=== PATIENT | male | born 1940 | race Caucasian/White ===

== ENCOUNTER → 2017-07-24 07:34 | Outpatient (CLI) | payer MEDICARE, OTHER, SELFPAY ==
[2017-07-24 08:04] LABS: Hematocrit 40.8 % (40-54); Mean Corp Hgb Conc 34.3 g/gl (32-36); Mean Corpuscular Volume 84.5 fL (80-94); Mean Platelet Vol. 9.2 fl (6.2-12.0); Platelet Count 175 K/mm3 (150-450); RBC Distribution Width CV 13.1 % (11.6-14.6); RBC Distribution Width SD 39.8 fl (35.1-43.9); Red Blood Count 4.83 M/mm3 (4.6-6.2); White Blood Count 7.4 K/mm3 (4.4-11.0)
[2017-07-24 08:07] LABS: Scan Indicated on CBC? Y/N NO
--- NOTE | 2017-07-24 08:21 | US_ITS ---
STUDY: ABDOMINAL ULTRASOUND - RIGHT UPPER QUADRANT REASON FOR VISIT: Male, 77 years old. The patient has a history of cirrhosis. TECHNIQUE: Ultrasound evaluation of the right upper quadrant was performed with real-time and static ferguson-scale imaging. TECHNICAL QUALITY: Adequate. COMPARISON: None. FINDINGS: Liver: The liver measures 16.3 cm. There is increased echogenicity consistent with fatty infiltration. The bile ducts are within normal limits. There is hepatic color flow. The direction of portal flow is hepatopetal. There is no demonstrated mass lesion. Gallbladder: Normal distended gallbladder. The gallbladder wall measures 3.6 mm. There is a negative sonographic Chaudhry's sign. There is no pericholecystic fluid. There are no gallstones. A small amount of sludge is seen within the gallbladder lumen. Common Bile Duct (C.B.D.): The common bile duct measures 4 mm. Pancreas: There is nonvisualization of the pancreas. Right Kidney: Normal size of the right kidney. The right kidney measures 12.0 cm x 5.2 cm x 5.0 cm. Normal renal cortex. The right cortex measures 1.7 cm. A 1 cm x 0.8 cm cyst is seen in the upper pole. I also suspect tiny nonobstructive intrarenal calculi. There is no right hydronephrosis. US/Abdomen Limited IMPRESSION: Fatty infiltration of the liver. Small cyst in the upper pole of the right kidney with tiny nonobstructing intrarenal calculi. Electronically Signed: Francisco Sims MD at 13:52 EDT Tel [phone], Service support ,
[2017-07-24 08:28] LABS: International Normalized Ratio 1.1
[2017-07-24 08:33] LABS: AST(SGOT) 26 U/L (15-37); Alanine Aminotransfer ALT/SGPT 42 U/L (16-61); Albumin, Serum 3.6 g/dL (3.2-5.0); Alkaline Phosphatase 66 U/L (45-117); Anion Gap 7 (5-15); BUN 19 mg/dL (7-18); BUN/Creat Ratio 16.5 RATIO (10-20); Calcium,Total 8.5 mg/dL (8.5-10.1); Chloride 104 mmol/L (98-107); Creatinine, Serum 1.15 mg/dL (0.70-1.30); EST Glomerular Filtration Rate 66 mL/min (>60); Est Glom Filt Rate - Afr Amer 80 mL/min (>60); Globulin 3.5 g/dL (2.2-4.2); Glucose 175 mg/dL (74-106); Potassium 4.8 mmol/L (3.5-5.1); Protein, Total 7.1 g/dL (6.4-8.2); Sodium Level 139 mmol/L (136-145)
[2017-07-25 12:09] LABS: AFP, Tumor Marker 2.6 ng/mL (0.0-8.3)
== END ==
PROVIDERS: Family Provider Family Medicine; PCP Family Medicine
DX: K74.69 Other cirrhosis of liver (principal); K76.0 Fatty (change of) liver, not elsewhere classified
CPT/HCPCS: 36415; 76705; 80053; 82105; 85027; 85610

== ENCOUNTER 2018-01-10 13:36 | Emergency (ER) | payer MEDICARE, OTHER, SELFPAY ==
[2018-01-10 13:38] VITALS: BP 110/72; PULSE 100; RESP 16; TEMP 36.2; O2SAT 95; BMI 28.8
--- NOTE | 2018-01-10 14:59 | ED.VISSUMM ---
- ER Visit Summary Date of Service: 01/10/18 Chief Complaint: Laceration History of Present Illness: The patient is a 77 M with a right middle fingertip laceration. This happened just prior to arrival on a fan in his attic. He also has an abrasion to his right ring finger. He is unsure of his tetanus status. No other injury or complaints. Physical Examination: Vital signs unremarkable. There is a 1 cm partial-thickness laceration to his right fingertip. Bleeding is controlled with pressure. Tiny superficial abrasion to his right ring fingertip. Test Results: None indicated Emergency Department Course and Treatment: Wound was cleaned, soaked. Closed with tissue adhesive. Tetanus updated. Follow-up with primary care for recheck. Treatment Plan: As above Disposition: Discharged Impression: 1. Right middle fingertip 1 cm laceration This note was generated with [employer] dictation software. It may contain incorrect words, spelling, and punctuation that were not noted in review of the chart prior to signing ED Disposition - Plan for ED Patient: Disposition: Home or Assisted Living Chief Complaint: Laceration Instructions: ED Laceration Ext Skin Glue Referrals: Yvan Cardona MD [Primary Care Provider] -
[2018-01-10] MEDS: Diphth,Pertuss(Acell),Tet Vac 0.5 ML Vial IM (15:03)
--- NOTE | 2018-01-10 15:05 | ED.DCSUM_ITS ---
- ER Visit Summary Date of Service: 01/10/18 Chief Complaint: Laceration History of Present Illness: The patient is a 77 M with a right middle fingertip laceration. This happened just prior to arrival on a fan in his attic. He also has an abrasion to his right ring finger. He is unsure of his tetanus status. No other injury or complaints. Physical Examination: Vital signs unremarkable. There is a 1 cm partial- thickness laceration to his right fingertip. Bleeding is controlled with pressure. Tiny superficial abrasion to his right ring fingertip. Test Results: None indicated Emergency Department Course and Treatment: Wound was cleaned, soaked. Closed with tissue adhesive. Tetanus updated. Follow-up with primary care for recheck. Treatment Plan: As above Disposition: Discharged Impression: 1. Right middle fingertip 1 cm laceration This note was generated with [employer] dictation software. It may contain incorrect words, spelling, and punctuation that were not noted in review of the chart prior to signing ED Disposition - Plan for ED Patient: Disposition: Home or Assisted Living Chief Complaint: Laceration Instructions: ED Laceration Ext Skin Glue Referrals: Yvan Cardona MD [Primary Care Provider] -
--- NOTE | 2018-01-10 15:05 | ED.DEP ---
ED Disposition - Plan for ED Patient: Chief Complaint: Laceration Instructions: ED Laceration Ext Skin Glue Referrals: Yvan Cardona MD [Primary Care Provider] -
== END 2018-01-10 15:51 | disposition home or self-care (01) ==
LOC: ED 15:16
PROVIDERS: Emergency Provider Emergency Medicine; Family Provider Family Medicine; PCP Family Medicine
DX: S61.212A Laceration without foreign body of right middle finger without damage to nail, initial encounter (principal); X58.XXXA Exposure to other specified factors, initial encounter; Y93.9 Activity, unspecified; Y92.008 Other place in unspecified non-institutional (private) residence as the place of occurrence of the external cause; E11.9 Type 2 diabetes mellitus without complications; Z79.84 Long term (current) use of oral hypoglycemic drugs; Z79.899 Other long term (current) drug therapy
CPT/HCPCS: 90471; 90715; 99282

== ENCOUNTER 2024-08-19 08:57 | Inpatient (IN) | payer MEDICARE, OTHER, SELFPAY ==
[2024-08-19] VITALS (20 sets, daily range): BP systolic 123–174; BP diastolic 56–89; PULSE 99–130; RESP 14–32; TEMP 36.8–39.1; O2SAT 91–95; BMI 28.8; BMI 26.6
--- NOTE | 2024-08-19 09:03 | EKG12_ITS ---
Test Reason : N/V Blood Pressure : */* mmHG Vent. Rate : 127 BPM Atrial Rate : 127 BPM P-R Int : 184 ms QRS Dur : 126 ms QT Int : 340 ms P-R-T Axes : * 166 25 degrees QTcB Int : 494 ms Sinus tachycardia Right bundle branch block Abnormal ECG Confirmed by THOMAS MATHIAS, MARILYN ([id number]), senior technical editor PAOLA ÁLVAREZ ([id number]) on 08/20/2024 8:36:27 AM Referred By: Confirmed By: MARILYN GUZMAN MD
--- NOTE | 2024-08-19 09:03 | RAD_ITS ---
PROCEDURE: CHEST 1 VIEW (PORTABLE) 08/19/2024 REASON FOR EXAM: WEAKNESS, HYPOXIA TECHNIQUE: Frontal view of the chest. COMPARISON: No relevant prior. FINDINGS: Lungs: Prominent lung markings at the left lung base. Pleura: No pleural effusions, thickening, or pneumothorax. Elevation of the right hemidiaphragm. Heart: Normal in size and configuration. Mediastinum/[place]: Unremarkable. Great vessels: Aorta is atherosclerotic and tortuous. Bones/soft tissues: Multilevel spondylosis. Cardiac monitoring leads overlie the chest wall. RAD/Chest 1 View (Portable) IMPRESSION: Prominent lung markings at the left lung base. Can not exclude a developing in filtrate. Elevation of the right hemidiaphragm. Reading Location: [place] [id number]
--- NOTE | 2024-08-19 09:04 | EX.ED.DYSGE1 ---
HPI History of Present Illness Chief Complaint: Weakness Narrative Narrative: 84-year-old male past medical history of diabetes presents via EMS with generalized weakness, nausea and vomiting. It was reported that he had a fever/elevated temperature at home. He felt sick to his stomach, and vomited 3-4 times at home. He was unable to sit up completely. He relates history that he has been feeling tired and fatigued as well. He denies any chest pain or shortness of breath, no cough, no problems with urination. He is not having diarrhea. He denies any abdominal pain. It was reported by EMS that he was hypoxic as well. He had a pulse ox in the 80s upon their arrival. [facility] Medical History (Updated 08/19/24 @ 10:51 by Denilson Foley MD) HTN (hypertension) Lung cancer Diabetes Home Medications ?Medication ?Instructions ?Recorded ?Last Taken ?Type glimepiride 2 mg tablet 2 mg PO BID 07/22/13 08/18/24 History aspirin 81 mg tablet,delayed 81 mg PO DAILY 08/19/24 08/18/24 History release (Adult Aspirin Regimen) cholecalciferol (vitamin D3) 50 50 mcg PO DAILY 08/19/24 08/18/24 History mcg (2,000 unit) capsule levothyroxine 175 mcg tablet 175 mcg PO DAILY 08/19/24 08/18/24 History (Synthroid) losartan 100 mg tablet 100 mg PO DAILY 08/19/24 08/18/24 History omeprazole 20 mg capsule,delayed 20 mg PO DAILY 08/19/24 08/18/24 History release pioglitazone 30 mg tablet 30 mg PO DAILY 08/19/24 08/18/24 History pravastatin 40 mg tablet 40 mg PO DAILY 08/19/24 08/18/24 History sitagliptin phos 100 mg-metformin 1 tab PO DAILY 08/19/24 08/18/24 History ER 1,000 mg tablet,extend rel 24h mp (Janumet XR) tamsulosin 0.4 mg capsule 0.4 mg PO BID 08/19/24 08/18/24 History Allergy/AdvReac Type Severity Reaction Status Date / Time Penicillins Allergy Swelling Verified 08/19/24 08:58 Surgical History (Updated 08/19/24 @ 09:18 by Luis Armando King) S/P lobectomy of lung Social History Smoking Status: Never smoker ROS ROS ED ROS Narrative Afebrile. Vital signs noted. Nontoxic-appearing. Intermittent drowsiness noted on examination. Cardiovascular examination reveals mild tachycardia. Lungs are clear to auscultation bilaterally with diminished sounds at the bilateral bases. Abdomen soft, nontender, no guarding or rebound. Positive bowel sounds. Neurological examination shows him to be awake and interactive. Stated year was 2023. Intermittently fatigued. No pedal edema bilaterally. Moves all extremities. EXAM Physical Exam Const Vital Signs: 08/19/24 08:58 08/19/24 09:08 08/19/24 09:08 Temperature 98.2 F 98.6 F Temperature Source Oral Oral Pulse Rate 130 H 130 H Respiratory Rate 18 28 H Respiratory Effort Respiratory Pattern Blood Pressure 174/86 H 174/86 H Blood Pressure Mean 115 115 Pulse Ox 91 92 Oxygen Delivery Method Room Air Room Air Nasal Cannula Oxygen Flow Rate (L/min) 2 08/19/24 09:17 08/19/24 10:05 08/19/24 10:28 Temperature 102.1 F H 102.3 F H Temperature Source Core Core Pulse Rate 116 H 115 H Respiratory Rate 28 H 30 H Respiratory Effort Normal Respiratory Pattern Normal Blood Pressure 145/64 H 123/70 H Blood Pressure Mean 91 87 Pulse Ox 93 94 Oxygen Delivery Method Nasal Cannula Nasal Cannula Oxygen Flow Rate (L/min) 2 2 Sepsis Attestation Sepsis Alert: Yes Sepsis Attestation: Agree w/Sepsis Date exam was performed: 08/19/24 Time exam was performed: 10:05 Possible Source of Sepsis: Pulmonary Sepsis Organ Dysfunction Criteria Present: SBP decrease of more than 40 mmHg and New/Unexplained change in mental status Fluid Resuscitation Fluid resuscitation indicated?: Yes Fluid Resuscitation ordered: 30 ml/kg fluid bolus ordered Amount of fluid ordered: 2,750 MDM MDM MDM Narrative Medical decision making narrative: Given patient's generalized weakness, differential diagnosis includes dehydration versus intravascular volume depletion. Given his tachycardia, concern would also be for new onset atrial fibrillation versus sinus tachycardia. With his reported hypoxia, he may have pneumonia versus pneumothorax. While he is not hypotensive, sepsis workup was pursued given his reported fever but he is currently afebrile. In discussing with the patient's , she states that yesterday patient was complaining of urinary frequency. She called EMS this morning because at 4 AM he started having nausea and vomiting and was in the bathroom for a while. He had an episode of diarrhea as well and she had to call her son to try and get him to the bathroom. He was so weak he could barely stand and ambulate, and he seemed more confused. She states that he takes Januvia and oral medication for his diabetes. Per RN, [id number] glucose is elevated at 375. I added a beta hydroxybutyrate, and bladder scan was also performed. He was having urinary retention so Suárez catheter was inserted. On my individual interpretation of his 1 view chest x-ray, there is perihilar fullness and questionable infiltrate in the left lower lobe. He has chronically elevated right hemidiaphragm when compared to previous chest x-ray. I reviewed the radiology report which comments more on the developing left lower lobe infiltrate. Given his hypoxia, I feel he may have more of a pneumonia. EKG was obtained and interpreted by myself independently as sinus tachycardia at 127 bpm with a right bundle branch block, no acute ST changes/STEMI. When compared to previous EKG, he has had a right bundle branch block even in 2013. I reviewed his laboratory work and he has elevated white count of 14.5 with hemoglobin 15.9, hematocrit 46.5, platelet count 220. INR normal at 1.1 with a PTT 25.3. CMP is remarkable for a chloride of 97 with CO2 low at 15.5 and anion gap elevated 23, BUN of 22 and creatinine 1.18. LFTs show AST slightly elevated at 41 which I think is nonspecific, normal ALT and normal alk phos. Lactic acid is elevated at 6.3. Glucose is elevated at 435. I obtained acetone level and it is also elevated at 1.6. Patient was started on IV fluids. I deferred insulin to the hospitalist. Given his lactic acidosis, and now with fever of 102.3, tachycardia, sepsis alert was instituted. As he may have more of an aspiration pneumonia, given his penicillin allergy of swelling he was started on levofloxacin and Flagyl intravenously. I discussed the patient with Dr. Yadira Pruett for admission to the ICU. Critical care time 31 minutes. Disposition is admit to the ICU in guarded condition. History & Record Review Discussion w/independent historian: Patient and Family Lab Data Attestation: I reviewed the patient's lab results. Labs: Laboratory Results - last 24 hr 08/19/24 08/19/24 08/19/24 08:42 09:16 09:35 WBC 14.5 H RBC 5.55 Hgb 15.9 Hct 46.5 MCV 83.8 MCH 28.6 MCHC 34.2 RDW Std Deviation 38.4 RDW Coeff of [place] 12.6 Plt Count 220 MPV 10.0 Immature Gran % (Auto) 0.500 Neut % (Auto) 89.9 H Lymph % (Auto) 6.2 L [place] % (Auto) 3.0 Eos % (Auto) 0.1 Baso % (Auto) 0.3 Absolute Neuts (auto) 13.1 H Absolute Lymphs (auto) 0.90 Nucleated RBC % 0 PT 14.7 INR 1.1 APTT 25.3 Sodium 135 Potassium 4.1 Chloride 97 L Carbon Dioxide 15.5 L Anion Gap 23 H BUN 22 H Creatinine 1.18 Estim Creat Clear Calc 54.81 Est GFR (MDRD) Non-Af 62 BUN/Creatinine Ratio 18.8 Glucose 437 H Lactic Acid Calcium 8.8 Total Bilirubin 1.11 AST 41 H ALT 36 Alkaline Phosphatase 71 Total Protein 7.4 Albumin 4.2 Globulin 3.2 Albumin/Globulin Ratio 1.3 Lipase 28 b-Hydroxybutyric mmol/L 1.6 Urine Color Straw Urine Clarity Clear Urine pH 5.0 Ur Specific [place] 1.015 Urine Protein 30 H Urine Glucose (UA) 1000 H Urine Ketones 50 H Urine Occult Blood 10 H Urine Nitrite Negative Urine Bilirubin Negative Urine Urobilinogen Normal Ur Leukocyte Esterase Negative Urine RBC 0-5 SEEN Urine WBC 0-5 SEEN Ur Squamous Epith Cells 0 SEEN Urine Bacteria 0 SEEN Urine Mucus 0 SEEN POC Glucose 375 H 08/19/24 09:37 WBC RBC Hgb Hct MCV MCH MCHC RDW Std Deviation RDW Coeff of [place] Plt Count MPV Immature Gran % (Auto) Neut % (Auto) Lymph % (Auto) [place] % (Auto) Eos % (Auto) Baso % (Auto) Absolute Neuts (auto) Absolute Lymphs (auto) Nucleated RBC % PT INR APTT Sodium Potassium Chloride Carbon Dioxide Anion Gap BUN Creatinine Estim Creat Clear Calc Est GFR (MDRD) Non-Af BUN/Creatinine Ratio Glucose Lactic Acid 6.3 H* Calcium Total Bilirubin AST ALT Alkaline Phosphatase Total Protein Albumin Globulin Albumin/Globulin Ratio Lipase b-Hydroxybutyric mmol/L Urine Color Urine Clarity Urine pH Ur Specific [place] Urine Protein Urine Glucose (UA) Urine Ketones Urine Occult Blood Urine Nitrite Urine Bilirubin Urine Urobilinogen Ur Leukocyte Esterase Urine RBC Urine WBC Ur Squamous Epith Cells Urine Bacteria Urine Mucus POC Glucose Radiography Chest X-Ray - ED: 1 View and Read by ED Physician Diagnostic Testing: Clinical Impression(s) from Imaging Studies Chest X-Ray 08/19/24 09:03 IMPRESSION: Prominent lung markings at the left lung base. Can not exclude a developing infiltrate. Elevation of the right hemidiaphragm. Reading Location: [place] [address] Management Discussion w/another healthcare provider: Hospitalist Critical Care Time Critical Care Time: Yes Critical care time (excluding procedures): 30-74 minutes (31), Including time spent:, Discussing w/Patient &/or Family/Court Specialist, Discussing w/Consultants, Arranging Admission or Transfer and Performing Direct Patient Care at Bedside Discharge Plan Dx/Rx/DC Orders Clinical Impression: Pneumonia, Sepsis, Mental status alteration, Urinary retention, Hyperglycemia Disposition Disposition: [facility] Care [facility]
[2024-08-19] MEDS: 0.9% Normal Saline (1000mL) 1,000 ML 999 ML IV ×3 (09:10→11:43)
[2024-08-19 09:15] LABS: Absolute Neutrophil Count 13.1 X10^3/uL (2.0-7.7); Basophil# 0.05 X10^3/uL; Basophil% 0.3 % (0-1); Eosinophil# 0.01 X10^3/uL; Eosinophils% 0.1 % (0-5); Hematocrit 46.5 % (40-54); Hemoglobin 15.9 g/dL (13.0-16.5); Lymphocyte % 6.2 % (19-41); Mean Corp Hgb Conc 34.2 g/dL (32-36); Mean Corpuscular Hgb 28.6 pg (27.0-32.0); Mean Corpuscular Volume 83.8 fL (80-94); Monocyte# 0.44 X10^3/uL; NRBC Flagged by Analyzer 0 % (0-5); Neutrophil # 13.07 X10^3/uL (2.7-7.7); Neutrophil % 89.9 % (47-70); Platelet Count 220 K/mm3 (150-450); RBC Distribution Width CV 12.6 % (11.6-14.6); RBC Distribution Width SD 38.4 fl (35.1-43.9); Red Blood Count 5.55 M/mm3 (4.6-6.2); White Blood Count 14.5 K/mm3 (4.4-11.0)
[2024-08-19 09:39] LABS: International Normalized Ratio 1.1; Prothrombin Time (Protime)PT. 14.7 SECONDS (11.7-14.9)
[2024-08-19 09:39] LABS: Bedside Glucose 375 mg/dL (74-106)
[2024-08-19 09:40] LABS: Partial Thromboplast Time 25.3 Seconds (24.1-36.2)
[2024-08-19 09:48] LABS: Bacteria 0 SEEN /hpf (None Seen); Mucous, Urine 0 SEEN /hpf (<or=2+); Squamous Epithelial Cells - UA 0 SEEN /hpf (0-5)
[2024-08-19 09:57] LABS: Color, Urine Straw (Yellow); Glucose, Dipstick 1000 mg/dl (Normal); Ketone-Dipstick 50 mg/dl (Negative); Leukocyte Esterase-Dipstick Negative /ul (Negative); Nitrite-Dipstick Negative (Negative); Occult Blood-Urine 10 /ul (Negative); Protein-Dipstick 30 mg/dl (Negative); Specific Gravity, Urine 1.015 (1.002-1.030); Urine Bilirubin Dipstick Negative (Negative); Urine Clarity Clear (Clear); Urine Urobilinogen Normal (Normal)
[2024-08-19] MEDS: Acetaminophen 325 MG Tablet 650 MG PO ×2 (10:06→18:05)
[2024-08-19 10:09] LABS: Red Blood Cells-Urine 0-5 SEEN /hpf (0-5); White Blood Cells 0-5 SEEN /hpf (0-5)
[2024-08-19 10:17] LABS: ALB/GLOB Ratio 1.3 RATIO (0.9-2.4); AST(SGOT) 41 U/L (<=37); Alanine Aminotransfer ALT/SGPT 36 U/L (<=46); Albumin, Serum 4.2 g/dL (3.4-4.8); Alkaline Phosphatase 71 U/L (40-129); Anion Gap 23 (5-15); BUN 22 mg/dL (4-19); BUN/Creat Ratio 18.8 RATIO (10-20); Calcium,Total 8.8 mg/dL (7.6-11.0); Carbon Dioxide 15.5 mmol/L (21.0-32.0); Chloride 97 mmol/L (98-108); Creatinine, Serum 1.18 mg/dL (0.70-1.20); EST Glomerular Filtration Rate 62 (>60); Estimated Creatinine Clearance 54.81 ml/min (50-250); Globulin 3.2 g/dL (2.2-4.2); Glucose 437 mg/dL (70-99); Lipase 28 U/L (13-75); Potassium 4.1 mmol/L (3.3-5.1); Protein, Total 7.4 g/dL (5.9-8.4); Sodium Level 135 mmol/L (133-145); Total Bilirubin 1.11 mg/dL (0.00-1.30)
[2024-08-19 10:22] LABS: Lactic Acid 6.3 mmol/L (0.0-2.0)
[2024-08-19] MEDS: metroNIDAZOLE 500 MG/100 ML BAG 100 MG IV (10:41)
[2024-08-19 10:53] LABS: BETA-HYDROXYBUTYRATE 1.6 mmol/L (0.0-0.3)
[2024-08-19] MEDS: levoFLOXacin IV 750 MG/150 ML BAG 100 MG IV (11:12)
--- NOTE | 2024-08-19 11:22 | PCM.HP.STD ---
HPI - General General Date of Admission: 08/19/24 Date of Service: 08/19/24 Chief Complaint: Altered mental status, nausea and vomiting HPI Narrative SANTOS MAZA, is a 84 M with a history of BPH, GERD, hypertension, hypothyroidism, diabetes presented [facility] ED 08/19/24 with nausea, vomiting, weakness and altered mental status. Reportedly he had been in his usual health the day before but woke up at 4 AM with nausea and vomiting and was feeling weak, noted he was very confused ultimately prompting her to bring him to the hospital, EMS noted patient was hypoxic to 80s and in the ED patient was tachypneic, tachycardic, and febrile and requiring 2 L of O2. Chest x-ray concerning for pneumonia so patient started on broad-spectrum antibiotics. He was also found to have an elevated lactic acid and was given IV fluids per sepsis protocol and hospitalist contacted for admission. Additionally patient was found to have urinary retention and had Suárez placed. History obtained primarily per report and from as patient is very tired and often will wake up any as somewhat difficult time answering questions though reportedly is more oriented now. Per he had a normal day yesterday and he did not know with her and went to bed completely fine but this a.m. she heard him get up around 4 AM when he had at least 3 episodes of emesis and an episode of diarrhea and given his continued worsening he was brought to the ED. Patient very tired but did wake up and answer questions more appropriately which is improved per . Patient reports he has been having cough but denies any abdominal pain, no more nausea or vomiting, denies being short of breath at present [facility] Medical History (Updated 08/19/24 @ 10:51 by Denilson Foley MD) Diabetes HTN (hypertension) Lung cancer Home Medications ?Medication ?Instructions ?Recorded ?Last Taken ?Type glimepiride 2 mg tablet 2 mg PO BID 07/22/13 08/18/24 History aspirin 81 mg tablet,delayed 81 mg PO DAILY 08/19/24 08/18/24 History release (Adult Aspirin Regimen) cholecalciferol (vitamin D3) 50 50 mcg PO DAILY 08/19/24 08/18/24 History mcg (2,000 unit) capsule levothyroxine 175 mcg tablet 175 mcg PO DAILY 08/19/24 08/18/24 History (Synthroid) losartan 100 mg tablet 100 mg PO DAILY 08/19/24 08/18/24 History omeprazole 20 mg capsule,delayed 20 mg PO DAILY 08/19/24 08/18/24 History release pioglitazone 30 mg tablet 30 mg PO DAILY 08/19/24 08/18/24 History pravastatin 40 mg tablet 40 mg PO DAILY 08/19/24 08/18/24 History sitagliptin phos 100 mg-metformin 1 tab PO DAILY 08/19/24 08/18/24 History ER 1,000 mg tablet,extend rel 24h mp (Janumet XR) tamsulosin 0.4 mg capsule 0.4 mg PO BID 08/19/24 08/18/24 History Allergy/AdvReac Type Severity Reaction Status Date / Time Penicillins Allergy Swelling Verified 08/19/24 08:58 Surgical History (Updated 08/19/24 @ 09:18 by Luis Armando King) S/P lobectomy of lung Social History Smoking Status: Never smoker ROS ROS Narrative Patient denies any current nausea, vomiting, abdominal pain, no diarrhea since being in the ED, does report cough but no shortness of breath, patient very tired and had difficulty answering further ROS at this time Vital Signs Vital Signs Vital Signs: 08/19/24 08:58 08/19/24 09:08 08/19/24 09:08 Temperature 98.2 F 98.6 F Temperature Source Oral Oral Pulse Rate 130 H 130 H Respiratory Rate 18 28 H Respiratory Effort Respiratory Pattern Blood Pressure 174/86 H 174/86 H Blood Pressure Mean 115 115 Pulse Ox 91 92 Oxygen Delivery Method Room Air Room Air Nasal Cannula Oxygen Flow Rate (L/min) 2 08/19/24 09:17 08/19/24 10:05 08/19/24 10:28 Temperature 102.1 F H 102.3 F H Temperature Source Core Core Pulse Rate 116 H 115 H Respiratory Rate 28 H 30 H Respiratory Effort Normal Respiratory Pattern Normal Blood Pressure 145/64 H 123/70 H Blood Pressure Mean 91 87 Pulse Ox 93 94 Oxygen Delivery Method Nasal Cannula Nasal Cannula Oxygen Flow Rate (L/min) 2 2 Weight Weight: 91.2 kg Body Mass Index (BMI) 28.8 Physical Exam Narrative General: Patient sleeping, did eventually wake up but was very tired, initially said the wrong place but then corrected that he was in the hospital, seemed to answer most questions correctly but mostly tired now HEENT: Atraumatic, normocephalic Eyes: Anicteric, normal conjunctiva, extraocular movements grossly intact Neck: Supple Respiratory: Little bit coarse in the left base, tachypneic Cardiovascular: Sinus tachycardia GI: Soft, nontender, no significant distention without rebound, guarding, rigidity Extremities: Trace lower extremity edema Musculoskeletal: Moving all extremities Neuro: No overt focal neurological deficits Skin: Has some very small petechial looking area around his left wrist and hand after blood pressure cuff inflated and has not worsened Psych: Attempts to be cooperative Results Lab / Micro Data 08/19/24 08:42 08/19/24 08:42 Labs: Laboratory Results - last 24 hr 08/19/24 08:42: WBC 14.5 H, RBC 5.55, Hgb 15.9, Hct 46.5, MCV 83.8, MCH 28.6, MCHC 34.2, RDW Std Deviation 38.4, RDW Coeff of [place] 12.6, Plt Count 220, MPV 10.0, Immature Gran % (Auto) 0.500, Neut % (Auto) 89.9 H, Lymph % (Auto) 6.2 L, [place] % (Auto) 3.0, Eos % (Auto) 0.1, Baso % (Auto) 0.3, Absolute Neuts (auto) 13.1 H, Absolute Lymphs (auto) 0.90, Nucleated RBC % 0, PT 14.7, INR 1.1, APTT 25.3, Sodium 135, Potassium 4.1, Chloride 97 L, Carbon Dioxide 15.5 L, Anion Gap 23 H, BUN 22 H, Creatinine 1.18, Estim Creat Clear Calc 54.81, Est GFR (MDRD) Non-Af 62, BUN/Creatinine Ratio 18.8, Glucose 437 H, Calcium 8.8, Total Bilirubin 1.11, AST 41 H, ALT 36, Alkaline Phosphatase 71, Total Protein 7.4, Albumin 4.2, Globulin 3.2, Albumin/Globulin Ratio 1.3, Lipase 28, b-Hydroxybutyric mmol/L 1.6 08/19/24 09:16: POC Glucose 375 H 08/19/24 09:35: Urine Color Straw, Urine Clarity Clear, Urine pH 5.0, Ur Specific [place] 1.015, Urine Protein 30 H, Urine Glucose (UA) 1000 H, Urine Ketones 50 H, Urine Occult Blood 10 H, Urine Nitrite Negative, Urine Bilirubin Negative, Urine Urobilinogen Normal, Ur Leukocyte Esterase Negative, Urine RBC 0-5 SEEN, Urine WBC 0-5 SEEN, Ur Squamous Epith Cells 0 SEEN, Urine Bacteria 0 SEEN, Urine Mucus 0 SEEN 08/19/24 09:37: Lactic Acid 6.3 H* Micro: Microbiology 08/19/24 09:01 Mucosa - Nose SARS-CoV-2, Influenza & RSV (PCR) - Final Imaging Radiology Impression Chest X-Ray 08/19/24 09:03 IMPRESSION: Prominent lung markings at the left lung base. Can not exclude a developing infiltrate. Elevation of the right hemidiaphragm. Reading Location: [place] [address] Assessment & Plan Assessment/Plan (1) Sepsis: (2) Urinary retention: (3) Pneumonia: (4) Mental status alteration: (5) Hyperglycemia: PLAN: Plan # Sepsis suspect secondary to pneumonia - Patient febrile, tachycardic, tachypneic with chest x-ray suggestive of pneumonia - Additionally elevated white blood cell count and elevated lactic acid, additionally hyperglycemic above baseline -Patient additionally hypoxic when EMS arrived and had acute metabolic encephalopathy secondary to above - IV fluids per sepsis protocol - Patient to be admitted to the ICU with customer trainer consult - Blood and urine culture sent, you did not appear overtly infectious at this time however - Patient will be covered for pneumonia, given penicillin allergy will avoid penicillins -DuoNebs and as needed albuterol -Sputum culture, COVID negative, respiratory panel ordered -Urine antigens -Mucinex, I/S - Broad-spectrum antibiotics given significance of illness # Hypoxia -suspect secondary to pneumonia and sepsis -Patient presently on 2 L O2, is tachypneic but to some extent suspect this is presently due to his acidosis -Will monitor closely # Type 2 diabetes with significant hyperglycemia -Serum glucose in ED initially 473 with an anion gap of 22 however patient also has a lactic of 6.3 so difficult to tell how much gap has been affected - Does have urine ketones however and does have an increase in beta hydroxybutyrate - Will give dose of IV insulin and schedule every 4 glucose checks with high correction factor, if this does not improve and beta hydroxybutyrate does not improve may need to make n.p.o. and have DKA protocol -Aggressive fluid hydration - Glucose checks -I's and O's -A1c in the a.m. 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
--- NOTE | 2024-08-19 11:36 | CASEMGMT ---
Care Management Face to Face with patient for initial transition planning/care coordination assessment in the ED. 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 Patient asleep; patient's , Lisa, bedside and willing to participate in assessment and is able to answer all questions appropriately. Care providers, pharmacy, and demographics verified. Admitting Diagnosis: Sepsis, Urinary retention, Pneumonia, Mental status alteration, Hyperglycemia Other diagnosis history: BPH, GERD, hypertension, hypothyroidism, diabetes PCP: Brendan Specialists: Brown, urology. [facility]acy: [facility] Insurance: Medicare A B (primary). C[employer] (secondary). Prescription Benefit: yes Living Will/HPOA: , Lisa, is listed as HCPOA; Lisa is willing to bring in documents to [facility] to have on file. LNOK: , Lisa. Son, Sebastián. Living Arrangements: lives with in a bilevel home; 8 steps up and down (if entering through garage, patient must do both sets of steps); bed and bath are upstairs; independent with all ADLs at baseline Transportation: patient drives DME: cane and walker available, but does not normally use. Glucometer and testing strips, but reports patient does not check blood sugar like patient should. HHC: none SNF/Rehab: none Community Resources: none Patient goals: Patient wishes to discharge home; states HHC if recommended. Patient's denies any further needs or concerns at this time. Disposition Plan: admission to acute; RN CM/SW to follow for discharge planning needs that may arise. Ann Mcnamara, KENO DEALER, CHIEF ANALYTICS OFFICER
--- NOTE | 2024-08-19 13:27 | EX.PCM.CONCC ---
Assessment & Plan Assessment/Plan (1) Sepsis: PLAN: Plan RECOMMENDATIONS: 1. Continue empiric antibiotics. 2. Agree with rechecking beta hydroxybutyrate level. 3. If lactic acidemia improves but anion gap remains elevated with increased beta hydroxybutyrate, recommend insulin drip. 4. Continuous IV fluids as ordered. 5. Continue appropriate DVT prophylaxis. 6. Check enteric pathogen panel. IMPRESSIONS: 1. Sepsis The patient presented with sepsis due to possible pneumonia (less likely) versus GI source (gastroenteritis) with acute sepsis related organ dysfunction as evidenced by lactic acidemia. The patient has been initiated on antimicrobial therapy along with supplemental IV fluid hydration. He remains hemodynamically stable at the present time. Will plan to check an enteric pathogen panel, if the patient continues to have diarrhea. Otherwise, continue current supportive care. 2. Hyperglycemia The patient presented with hyperglycemia with an increased anion gap and metabolic acidosis, concerning for DKA. Accordingly, recommend rechecking beta hydroxybutyrate level. If the patient's lactic acidemia improves but anion gap remains elevated with increased beta hydroxybutyrate level, I would recommend initiating a continuous insulin infusion, and starting DKA protocol. 3. Remote history of lung CA/BPH/hypothyroidism/GERD/hypertension Complicates care, management, recovery and prognosis. Continue home medications as indicated. Remainder of supportive care as noted above. This note was generated with [employer] dictation software. It may contain incorrect words, spelling, and punctuation that were not noted in checking the note before signing. HPI Consult Data Date of Consult: 08/20/24 HPI Narrative Reason for Consultation: Sepsis HPI Narrative: The patient is an 84-year-old male, with a history as outlined below, who presented to the emergency department on August 19 with nausea, vomiting and diarrhea of approximately 48 hours duration. The patient reported that he initially became ill after eating breakfast yesterday with some friends. His symptoms initially began with nausea and vomiting and then he developed some diarrhea overnight. He does report limited p.o. intake during the aforementioned time. The patient has a remote history of lung CA approximately 10 years ago status post lobectomy along with diabetes mellitus and hypertension. On presentation to the emergency department, the patient was noted to be febrile, tachycardic tachypneic. The patient was hypertensive, but maintaining appropriate oxygen saturations on room air. Laboratory evaluation was notable for a white blood cell count of 14,000. Coagulation profile was within normal limits. Chemistry profile was notable for an anion gap of 23 with a creatinine of 1.18. Glucose was elevated at 437. Lactate was increased to 6.3. Lipase was within normal limits. Beta hydroxybutyrate level was elevated at 1.6. Chest x-ray, on my review, did not reveal a focal infiltrate or consolidation. Blood and urine cultures were collected. The patient was started on supplemental IV fluids and antimicrobials. He was subsequently admitted to the medical intensive care unit. [facility] Medical History (Updated 08/19/24 @ 12:50 by Anita Poe) Kidney stones Non-smoker HTN (hypertension) Lung cancer Diabetes Home Medications ?Medication ?Instructions ?Recorded ?Last Taken ?Type glimepiride 2 mg tablet 2 mg PO BID 07/22/13 08/18/24 History aspirin 81 mg tablet,delayed 81 mg PO DAILY 08/19/24 08/18/24 History release (Adult Aspirin Regimen) cholecalciferol (vitamin D3) 50 50 mcg PO DAILY 08/19/24 08/18/24 History mcg (2,000 unit) capsule levothyroxine 175 mcg tablet 175 mcg PO DAILY 08/19/24 08/18/24 History (Synthroid) losartan 100 mg tablet 100 mg PO DAILY 08/19/24 08/18/24 History omeprazole 20 mg capsule,delayed 20 mg PO DAILY 08/19/24 08/18/24 History release pioglitazone 30 mg tablet 30 mg PO DAILY 08/19/24 08/18/24 History pravastatin 40 mg tablet 40 mg PO DAILY 08/19/24 08/18/24 History sitagliptin phos 100 mg-metformin 1 tab PO DAILY 08/19/24 08/18/24 History ER 1,000 mg tablet,extend rel 24h mp (Janumet XR) tamsulosin 0.4 mg capsule 0.4 mg PO BID 08/19/24 08/18/24 History Allergy/AdvReac Type Severity Reaction Status Date / Time Penicillins Allergy Swelling Verified 08/19/24 08:58 Surgical History (Updated 08/19/24 @ 09:18 by Luis Armando King) S/P lobectomy of lung Social History Smoking Status: Never smoker ROS ROS Narrative 10 systems were reviewed with pertinent positives as noted in the HPI above. Physical Exam Const alert and no apparent distress Constitutional Narrative: is present at the bedside. General Appearance: cooperative and ill appearing HEENT normocephalic and head/scalp atraumatic Eyes EOMs intact bilaterally, conjunctivae normal and no scleral icterus Neck supple General: trachea midline Chest inspection of chest normal Resp normal respiratory effort Effort and Inspection: tachypneic Auscultation: rales Cardio S1 normal heart sound and S2 normal heart sound Rate: tachycardic GI normal to inspection, nondistended, normoactive bowel sounds Extremity no clubbing, cyanosis or edema Skin no rashes or lesions noted Neuro CN's II-XII intact bilaterally, moves all extremities and no focal motor deficits Psych cooperative and affect normal Lab / Micro Data 08/20/24 03:48 08/20/24 03:48 Labs: Laboratory Results - last 24 hr 08/19/24 08:42: WBC 14.5 H, RBC 5.55, Hgb 15.9, Hct 46.5, MCV 83.8, MCH 28.6, MCHC 34.2, RDW Std Deviation 38.4, RDW Coeff of [place] 12.6, Plt Count 220, MPV 10.0, Immature Gran % (Auto) 0.500, Neut % (Auto) 89.9 H, Lymph % (Auto) 6.2 L, [place] % (Auto) 3.0, Eos % (Auto) 0.1, Baso % (Auto) 0.3, Absolute Neuts (auto) 13.1 H, Absolute Lymphs (auto) 0.90, Nucleated RBC % 0, PT 14.7, INR 1.1, APTT 25.3, Sodium 135, Potassium 4.1, Chloride 97 L, Carbon Dioxide 15.5 L, Anion Gap 23 H, BUN 22 H, Creatinine 1.18, Estim Creat Clear Calc 54.81, Est GFR (MDRD) Non-Af 62, BUN/Creatinine Ratio 18.8, Glucose 437 H, Calcium 8.8, Total Bilirubin 1.11, AST 41 H, ALT 36, Alkaline Phosphatase 71, Total Protein 7.4, Albumin 4.2, Globulin 3.2, Albumin/Globulin Ratio 1.3, Lipase 28, b-Hydroxybutyric mmol/L 1.6 08/19/24 09:16: POC Glucose 375 H 08/19/24 09:35: Urine Color Straw, Urine Clarity Clear, Urine pH 5.0, Ur Specific Blanch 1.015, Urine Protein 30 H, Urine Glucose (UA) 1000 H, Urine Ketones 50 H, Urine Occult Blood 10 H, Urine Nitrite Negative, Urine Bilirubin Negative, Urine Urobilinogen Normal, Ur Leukocyte Esterase Negative, Urine RBC 0-5 SEEN, Urine WBC 0-5 SEEN, Ur Squamous Epith Cells 0 SEEN, Urine Bacteria 0 SEEN, Urine Mucus 0 SEEN 08/19/24 09:37: Lactic Acid 6.3 H* Micro: Microbiology 08/19/24 09:01 Mucosa - Nose SARS-CoV-2, Influenza & RSV (PCR) - Final Imaging Radiology Impression Chest X-Ray 08/19/24 09:03 IMPRESSION: Prominent lung markings at the left lung base. Can not exclude a developing infiltrate. Elevation of the right hemidiaphragm. Reading Location: [facility] Charges/Coding Visit Charges Inpatient E&M: 57081 Init Hosp L3
[2024-08-19] MEDS: 0.9% Normal Saline (1000mL) 1,000 ML 100 ML IV ×2 (13:42→23:42)
[2024-08-19 13:45] LABS: Reflex Lactate? Y
[2024-08-19] MEDS: Insulin Lispro 100 UNIT/ML INSULN.PEN SC ×3 (14:07→21:28)
[2024-08-19 14:14] LABS: Anion Gap 15 (5-15); BETA-HYDROXYBUTYRATE 1.3 mmol/L (0.0-0.3); BUN 21 mg/dL (4-19); BUN/Creat Ratio 20.8 RATIO (10-20); Calcium,Total 8.3 mg/dL (7.6-11.0); Carbon Dioxide 18.1 mmol/L (21.0-32.0); Chloride 103 mmol/L (98-108); EST Glomerular Filtration Rate 75 (>60); Estimated Creatinine Clearance 60.66 ml/min (50-250); Glucose 303 mg/dL (70-99); Potassium 4.4 mmol/L (3.3-5.1); Sodium Level 136 mmol/L (133-145)
[2024-08-19 14:37] LABS: Lactic Acid 4.7 mmol/L (0.0-2.0)
[2024-08-19 15:42] LABS: Bedside Glucose 280 mg/dL (74-106)
[2024-08-19 16:31] LABS: Bedside Glucose 244 mg/dL (74-106)
[2024-08-19 19:11] LABS: Anion Gap 17 (5-15); BETA-HYDROXYBUTYRATE 0.7 mmol/L (0.0-0.3); BUN 20 mg/dL (4-19); BUN/Creat Ratio 18.1 RATIO (10-20); Calcium,Total 8.7 mg/dL (7.6-11.0); Chloride 102 mmol/L (98-108); Creatinine, Serum 1.13 mg/dL (0.70-1.20); EST Glomerular Filtration Rate 65 (>60); Estimated Creatinine Clearance 53.68 ml/min (50-250); Glucose 270 mg/dL (70-99); Potassium 5.4 mmol/L (3.3-5.1); Sodium Level 136 mmol/L (133-145)
[2024-08-19 19:12] LABS: Bedside Glucose 267 mg/dL (74-106)
[2024-08-19] MEDS: Ipratropium/Albuterol Sulfate 3 ML AMPUL.NEB INHALATION (19:12)
[2024-08-19] MEDS: guaiFENesin 1,200 MG Tablet 1200 MG PO (21:27)
[2024-08-19] MEDS: hydrOXYzine 10 MG Tablet PO (21:28)
[2024-08-19] MEDS: Tamsulosin HCl 0.4 MG Capsule PO (21:28)
[2024-08-19 21:58] LABS: Bedside Glucose 203 mg/dL (74-106)
[2024-08-20] VITALS (15 sets, daily range): BP systolic 125–174; BP diastolic 72–98; PULSE 101–121; RESP 18–28; TEMP 37.7–38.3; O2SAT 92–95; BMI 26.6
[2024-08-20 00:13] LABS: Bedside Glucose 144 mg/dL (74-106)
[2024-08-20 01:25] LABS: Bedside Glucose 139 mg/dL (74-106)
[2024-08-20] MEDS: 0.9% Saline Lock 10 ML Syringe IV (03:53)
[2024-08-20] MEDS: Acetaminophen 325 MG Tablet 650 MG PO (03:53)
[2024-08-20 04:11] LABS: Absolute Lymphocyte Count 0.55 X10^3/uL (0.83-4.51); Absolute Neutrophil Count 12.1 X10^3/uL (2.0-7.7); Basophil# 0.03 X10^3/uL; Basophil% 0.2 % (0-1); Hematocrit 38.4 % (40-54); Hemoglobin 13.5 g/dL (13.0-16.5); Lymphocyte # 0.55 X10^3/ul (0.83-4.51); Mean Corp Hgb Conc 35.2 g/dL (32-36); Mean Corpuscular Hgb 29.1 pg (27.0-32.0); Mean Corpuscular Volume 82.8 fL (80-94); Mean Platelet Vol. 10.1 fl (6.2-12.0); Monocyte# 0.86 X10^3/uL; Monocyte% 6.3 % (0-10); NRBC Flagged by Analyzer 0 % (0-5); Neutrophil % 88.8 % (47-70); POSITIVE DIFFERENTIAL YES; Platelet Count 156 K/mm3 (150-450); RBC Distribution Width CV 13.1 % (11.6-14.6); RBC Distribution Width SD 39.4 fl (35.1-43.9); Red Blood Count 4.64 M/mm3 (4.6-6.2); White Blood Count 13.6 K/mm3 (4.4-11.0)
[2024-08-20 05:10] LABS: Hemoglobin A1c 7.9 % (<=5.6)
[2024-08-20 05:19] LABS: Thyroid Stim Hormone (TSH) 0.069 uIU/mL (0.300-4.200)
[2024-08-20 05:24] LABS: Anion Gap 13 (5-15); BUN 19 mg/dL (4-19); BUN/Creat Ratio 19.9 RATIO (10-20); Calcium,Total 8.4 mg/dL (7.6-11.0); Carbon Dioxide 19.4 mmol/L (21.0-32.0); Chloride 104 mmol/L (98-108); Creatinine, Serum 0.95 mg/dL (0.70-1.20); EST Glomerular Filtration Rate 80 (>60); Estimated Creatinine Clearance 63.85 ml/min (50-250); Glucose 186 mg/dL (70-99); Potassium 5.6 mmol/L (3.3-5.1); Sodium Level 136 mmol/L (133-145)
[2024-08-20] MEDS: Insulin Lispro 100 UNIT/ML INSULN.PEN SC ×4 (06:21→21:49)
[2024-08-20] MEDS: Levothyroxine 175 MCG Tablet PO (06:21)
--- NOTE | 2024-08-20 06:59 | PCM.PN.HOSP ---
Reason for Visit Reason for Visit: Diagnoses Sepsis, unspecified organism (08/19/24) Pneumonia, unspecified organism (08/19/24) Retention of urine, unspecified (08/19/24) Altered mental status, unspecified (08/19/24) Hyperglycemia, unspecified (08/19/24) Subjective Subjective Patient sitting up in bed, awake alert, reports he is a little bit short of breath and reports he has a little bit of a cough and does have some production, reports a little bit of soreness but no nausea at this time. Of note overnight reportedly patient got delirious and agitated but then this a.m. was awake and alert and oriented Objective Data Objective Data Vital Signs: Vital Signs Temp Pulse Resp BP Pulse Ox O2 Del Method O2 Flow Rate 99.8 F H 101 H 21 H 152/80 H 95 Nasal Cannula 2 08/20/24 06:00 08/20/24 06:00 08/20/24 06:00 08/20/24 06:00 08/20/24 06:00 08/20/24 06:00 08/20/24 06:00 Oxygen Flow Rate (L/min) 2 Oxygen Delivery Method Nasal Cannula Weight: 86.7 kg Body Mass Index (BMI) 26.6 Intake & Output: Intake and Output for Last 24 Hours 08/18/24 08/19/24 08/20/24 23:59 23:59 23:59 Intake Total 4380 / 4380 0 / 0 Output Total 1300 / 1900 1100 / 1100 Balance 3080 / 2480 -1100 / -1100 Lab / Micro Data 08/20/24 03:48 08/20/24 03:48 Labs: Laboratory Results - last 24 hr 08/19/24 08:42: WBC 14.5 H, RBC 5.55, Hgb 15.9, Hct 46.5, MCV 83.8, MCH 28.6, MCHC 34.2, RDW Std Deviation 38.4, RDW Coeff of [place] 12.6, Plt Count 220, MPV 10.0, Immature Gran % (Auto) 0.500, Neut % (Auto) 89.9 H, Lymph % (Auto) 6.2 L, [place] % (Auto) 3.0, Eos % (Auto) 0.1, Baso % (Auto) 0.3, Absolute Neuts (auto) 13.1 H, Absolute Lymphs (auto) 0.90, Nucleated RBC % 0, PT 14.7, INR 1.1, APTT 25.3, Sodium 135, Potassium 4.1, Chloride 97 L, Carbon Dioxide 15.5 L, Anion Gap 23 H, BUN 22 H, Creatinine 1.18, Estim Creat Clear Calc 54.81, Est GFR (MDRD) Non-Af 62, BUN/Creatinine Ratio 18.8, Glucose 437 H, Calcium 8.8, Total Bilirubin 1.11, AST 41 H, ALT 36, Alkaline Phosphatase 71, Total Protein 7.4, Albumin 4.2, Globulin 3.2, Albumin/Globulin Ratio 1.3, Lipase 28, b-Hydroxybutyric mmol/L 1.6 08/19/24 09:16: POC Glucose 375 H 08/19/24 09:35: Urine Color Straw, Urine Clarity Clear, Urine pH 5.0, Ur Specific [place] 1.015, Urine Protein 30 H, Urine Glucose (UA) 1000 H, Urine Ketones 50 H, Urine Occult Blood 10 H, Urine Nitrite Negative, Urine Bilirubin Negative, Urine Urobilinogen Normal, Ur Leukocyte Esterase Negative, Urine RBC 0-5 SEEN, Urine WBC 0-5 SEEN, Ur Squamous Epith Cells 0 SEEN, Urine Bacteria 0 SEEN, Urine Mucus 0 SEEN 08/19/24 09:37: Lactic Acid 6.3 H* 08/19/24 13:14: POC Glucose 280 H 08/19/24 13:25: Sodium 136, Potassium 4.4, Chloride 103, Carbon Dioxide 18.1 L, Anion Gap 15, BUN 21 H, Creatinine 1.00, Estim Creat Clear Calc 60.66, Est GFR (MDRD) Non-Af 75, BUN/Creatinine Ratio 20.8 H, Glucose 303 H, Lactic Acid Cancelled 08/19/24 13:25: Lactic Acid 4.7 H*, Calcium 8.3, b-Hydroxybutyric mmol/L 1.3 08/19/24 16:13: POC Glucose 244 H 08/19/24 17:15: Sodium 136, Potassium 5.4 H, Chloride 102, Carbon Dioxide 17.0 L, Anion Gap 17 H, BUN 20 H, Creatinine 1.13, Estim Creat Clear Calc 53.68, Est GFR (MDRD) Non-Af 65, BUN/Creatinine Ratio 18.1, Glucose 270 H, Calcium 8.7, b-Hydroxybutyric mmol/L 0.7 08/19/24 18:44: POC Glucose 267 H 08/19/24 21:26: POC Glucose 203 H 08/19/24 23:50: POC Glucose 144 H 08/20/24 01:06: POC Glucose 139 H 08/20/24 03:48: WBC 13.6 H, RBC 4.64, Hgb 13.5, Hct 38.4 L, MCV 82.8, MCH 29.1, MCHC 35.2, RDW Std Deviation 39.4, RDW Coeff of [place] 13.1, Plt Count 156, MPV 10.1, Immature Gran % (Auto) 0.700, Neut % (Auto) 88.8 H, Lymph % (Auto) 4.0 L, [place] % (Auto) 6.3, Eos % (Auto) 0.0, Baso % (Auto) 0.2, Absolute Neuts (auto) 12.1 H, Absolute Lymphs (auto) 0.55 L, Nucleated RBC % 0, Sodium 136, Potassium 5.6 H, Chloride 104, Carbon Dioxide 19.4 L, Anion Gap 13, BUN 19, Creatinine 0.95, Estim Creat Clear Calc 63.85, Est GFR (MDRD) Non-Af 80, BUN/Creatinine Ratio 19.9, Glucose 186 H, Hemoglobin A1c 7.9, Calcium 8.4, TSH 0.069 L Micro: Microbiology 08/19/24 18:37 Stool Enteric Bacteriology - Final Norovirus 08/19/24 14:42 Mucosa - Nasopharyngeal Respiratory Panel (PCR) - Final 08/19/24 15:26 Urine Catheter - Catheter Legionella Antigen - Final 08/19/24 15:26 Urine Catheter - Catheter Streptococcus pneumoniae Antigen (M - Final 08/19/24 09:01 Mucosa - Nose SARS-CoV-2, Influenza & RSV (PCR) - Final Radiography Diagnostic Testing: Radiology Impression Chest X-Ray 08/19/24 09:03 IMPRESSION: Prominent lung markings at the left lung base. Can not exclude a developing infiltrate. Elevation of the right hemidiaphragm. Reading Location: [place] [address] Physical Exam Narrative General: Alert, oriented, no apparent distress HEENT: Atraumatic, normocephalic Eyes: Anicteric, normal conjunctiva, extraocular movements grossly intact Neck: Supple Respiratory: Somewhat diminished at the bases, slight increased respiratory effort Cardiovascular: Regular rate and rhythm GI: Not rigid, little bit distended with some generalized tenderness without rebound, guarding, rigidity Extremities: No significant pitting edema appreciated Musculoskeletal: Moving all extremities Neuro: No overt focal neurological deficits Skin: No rashes appreciated Psych: Cooperative Assessment & Plan Assessment/Plan (1) Sepsis: (2) Urinary retention: (3) Pneumonia: (4) Mental status alteration: (5) Hyperglycemia: PLAN: Plan # Sepsis suspect secondary to pneumonia complicated by norovirus infection - Patient febrile, tachycardic, tachypneic with chest x-ray suggestive of pneumonia - Additionally elevated white blood cell count and elevated lactic acid, additionally hyperglycemic above baseline -Patient additionally hypoxic when EMS arrived and had acute metabolic encephalopathy secondary to above - IV fluids per sepsis protocol - Patient to be admitted to the ICU with head waitress consult - Blood and urine culture sent, you did not appear overtly infectious at this time however - Patient will be covered for pneumonia, given penicillin allergy will avoid penicillins -DuoNebs and as needed albuterol -Sputum culture, COVID negative, respiratory panel ordered -Urine antigens -Mucinex, I/S - Broad-spectrum antibiotics given significance of illness -08/20: Patient's stool positive for norovirus, unsure if this explains entire clinical picture or if illness has been complicated by secondary bacterial infection. Patient presently on IV fluids and being monitored in the ICU on antibiotics, can likely de-escalate antibiotics if cultures remain negative # Hypoxia -suspect secondary to pneumonia and sepsis -Patient presently on 2 L O2, is tachypneic but to some extent suspect this is presently due to his acidosis -Will monitor closely -08/20: This is improving, had been on room air, presently on 2 L of nasal cannula but overall respiratory status improved from presentation # Type 2 diabetes with significant hyperglycemia -Serum glucose in ED initially 473 with an anion gap of 22 however patient also has a lactic of 6.3 so difficult to tell how much gap has been affected - Does have urine ketones however and does have an increase in beta hydroxybutyrate - Will give dose of IV insulin and schedule every 4 glucose checks with high correction factor, if this does not improve and beta hydroxybutyrate does not improve may need to make n.p.o. and have DKA protocol -Aggressive fluid hydration - Glucose checks -I's and O's -A1c in the a.m. 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 -Continue home medications, patient with Suárez due to urinary retention - 750 out after Suárez placement #Hypothyroidism -Continue Synthroid #GERD -Continue PPI #Hypertension - Given patient's acute illness we will hold home antihypertensives and add back as tolerated #DVT ppx: Lovenox subcu Yadira Pruett MD Time spent in the patient's overall evaluation,decision-making process, review of diagnostic data, adjustment of management, discussion with other providers, nursing nursing and ancillary staff involved in patient's care documentation, 39 minutes Charges/Coding Visit Charges Inpatient E&M: 92358 Subs Hosp L2
[2024-08-20] MEDS: Ipratropium/Albuterol Sulfate 3 ML AMPUL.NEB INHALATION ×3 (07:14→19:17)
--- NOTE | 2024-08-20 07:38 | PCM.PN.INT ---
Assessment & Plan Assessment/Plan (1) Sepsis: PLAN: Plan RECOMMENDATIONS: 1. Continue empiric antibiotics, pending culture results. 2. Encourage incentive spirometer use and mobilize patient as tolerated. 3. Continue appropriate DVT prophylaxis. IMPRESSIONS: 1. Sepsis The patient presented with sepsis due probable gastroenteritis related to norovirus. Although pneumonia was a potential concern, the patient's chest imaging looks less convincing for infection, from my perspective. The patient had evidence of sepsis related organ dysfunction as evidenced by lactic acidemia, likely related to hypovolemia. The patient's clinical state has improved with volume expansion and empiric antimicrobials. Recommend continuing supportive care. If cultures are negative, antibiotics can be discontinued. 2. Remote history of lung CA/BPH/hypothyroidism/GERD/hypertension/diabetes mellitus Complicates care, management, recovery and prognosis. Continue home medications as indicated. Continue sliding scale insulin coverage ACHS, as ordered. This note was generated with [employer] dictation software. It may contain incorrect words, spelling, and punctuation that were not noted in checking the note before signing. Subjective Subjective The patient was seen and examined at the bedside this morning. Events from the last 24 hours have been reviewed. The patient currently has a low-grade fever but remains otherwise hemodynamically stable on 2 L/min via nasal cannula. The patient is documented to be overall net +2 L for the hospitalization. White blood cell count is elevated at 13,000. Potassium is elevated at 5.6. Creatinine is within normal limits. The patient is sitting upright in the bedside recliner eating breakfast. He reports feeling much better than he did yesterday. Objective Data Objective Data The patient's most recent lab work, culture data and imaging studies have all been personally reviewed. Enteric panel was positive for norovirus. Strep and urine Legionella antigens were negative. Blood and urine cultures are pending. Vital Signs: Vital Signs Temp Pulse Resp BP Pulse Ox O2 Del Method O2 Flow Rate 99.8 F H 111 H 18 162/97 H 95 Nasal Cannula 2 08/20/24 06:00 08/20/24 07:15 08/20/24 07:15 08/20/24 07:00 08/20/24 07:15 08/20/24 07:15 08/20/24 07:15 Oxygen Flow Rate (L/min) 2 Oxygen Delivery Method Nasal Cannula Weight: 191 lb 2.252 oz Body Mass Index (BMI) 26.6 Intake & Output: Intake and Output for Last 24 Hours 08/18/24 08/19/24 08/20/24 23:59 23:59 23:59 Intake Total 4380 / 4380 0 / 0 Output Total 1300 / 1900 1100 / 1100 Balance 3080 / 2480 -1100 / -1100 Lab / Micro Data Attestation: I reviewed the patient's lab results. 08/20/24 03:48 08/20/24 03:48 Labs: Laboratory Results - last 24 hr 08/19/24 08:42: WBC 14.5 H, RBC 5.55, Hgb 15.9, Hct 46.5, MCV 83.8, MCH 28.6, MCHC 34.2, RDW Std Deviation 38.4, RDW Coeff of [place] 12.6, Plt Count 220, MPV 10.0, Immature Gran % (Auto) 0.500, Neut % (Auto) 89.9 H, Lymph % (Auto) 6.2 L, [place] % (Auto) 3.0, Eos % (Auto) 0.1, Baso % (Auto) 0.3, Absolute Neuts (auto) 13.1 H, Absolute Lymphs (auto) 0.90, Nucleated RBC % 0, PT 14.7, INR 1.1, APTT 25.3, Sodium 135, Potassium 4.1, Chloride 97 L, Carbon Dioxide 15.5 L, Anion Gap 23 H, BUN 22 H, Creatinine 1.18, Estim Creat Clear Calc 54.81, Est GFR (MDRD) Non-Af 62, BUN/Creatinine Ratio 18.8, Glucose 437 H, Calcium 8.8, Total Bilirubin 1.11, AST 41 H, ALT 36, Alkaline Phosphatase 71, Total Protein 7.4, Albumin 4.2, Globulin 3.2, Albumin/Globulin Ratio 1.3, Lipase 28, b-Hydroxybutyric mmol/L 1.6 08/19/24 09:16: POC Glucose 375 H 08/19/24 09:35: Urine Color Straw, Urine Clarity Clear, Urine pH 5.0, Ur Specific [place] 1.015, Urine Protein 30 H, Urine Glucose (UA) 1000 H, Urine Ketones 50 H, Urine Occult Blood 10 H, Urine Nitrite Negative, Urine Bilirubin Negative, Urine Urobilinogen Normal, Ur Leukocyte Esterase Negative, Urine RBC 0-5 SEEN, Urine WBC 0-5 SEEN, Ur Squamous Epith Cells 0 SEEN, Urine Bacteria 0 SEEN, Urine Mucus 0 SEEN 08/19/24 09:37: Lactic Acid 6.3 H* 08/19/24 13:14: POC Glucose 280 H 08/19/24 13:25: Sodium 136, Potassium 4.4, Chloride 103, Carbon Dioxide 18.1 L, Anion Gap 15, BUN 21 H, Creatinine 1.00, Estim Creat Clear Calc 60.66, Est GFR (MDRD) Non-Af 75, BUN/Creatinine Ratio 20.8 H, Glucose 303 H, Lactic Acid Cancelled 08/19/24 13:25: Lactic Acid 4.7 H*, Calcium 8.3, b-Hydroxybutyric mmol/L 1.3 08/19/24 16:13: POC Glucose 244 H 08/19/24 17:15: Sodium 136, Potassium 5.4 H, Chloride 102, Carbon Dioxide 17.0 L, Anion Gap 17 H, BUN 20 H, Creatinine 1.13, Estim Creat Clear Calc 53.68, Est GFR (MDRD) Non-Af 65, BUN/Creatinine Ratio 18.1, Glucose 270 H, Calcium 8.7, b-Hydroxybutyric mmol/L 0.7 08/19/24 18:44: POC Glucose 267 H 08/19/24 21:26: POC Glucose 203 H 08/19/24 23:50: POC Glucose 144 H 08/20/24 01:06: POC Glucose 139 H 08/20/24 03:48: WBC 13.6 H, RBC 4.64, Hgb 13.5, Hct 38.4 L, MCV 82.8, MCH 29.1, MCHC 35.2, RDW Std Deviation 39.4, RDW Coeff of [place] 13.1, Plt Count 156, MPV 10.1, Immature Gran % (Auto) 0.700, Neut % (Auto) 88.8 H, Lymph % (Auto) 4.0 L, [place] % (Auto) 6.3, Eos % (Auto) 0.0, Baso % (Auto) 0.2, Absolute Neuts (auto) 12.1 H, Absolute Lymphs (auto) 0.55 L, Nucleated RBC % 0, Sodium 136, Potassium 5.6 H, Chloride 104, Carbon Dioxide 19.4 L, Anion Gap 13, BUN 19, Creatinine 0.95, Estim Creat Clear Calc 63.85, Est GFR (MDRD) Non-Af 80, BUN/Creatinine Ratio 19.9, Glucose 186 H, Hemoglobin A1c 7.9, Calcium 8.4, TSH 0.069 L Micro: Microbiology 08/19/24 18:37 Stool Enteric Bacteriology - Final Norovirus 08/19/24 14:42 Mucosa - Nasopharyngeal Respiratory Panel (PCR) - Final 08/19/24 15:26 Urine Catheter - Catheter Legionella Antigen - Final 08/19/24 15:26 Urine Catheter - Catheter Streptococcus pneumoniae Antigen (M - Final 08/19/24 09:01 Mucosa - Nose SARS-CoV-2, Influenza & RSV (PCR) - Final Radiography Diagnostic Testing: Radiology Impression Chest X-Ray 08/19/24 09:03 IMPRESSION: Prominent lung markings at the left lung base. Can not exclude a developing infiltrate. Elevation of the right hemidiaphragm. Reading Location: [place] [id number] Physical Exam Const alert, oriented x3 and no apparent distress Constitutional Narrative: Sitting in bedside recliner. General Appearance: cooperative HEENT normocephalic, head/scalp atraumatic and moist oral mucous membranes Eyes EOMs intact bilaterally, conjunctivae normal and no scleral icterus Neck supple General: trachea midline Chest inspection of chest normal Resp normal respiratory effort and no use of accessory muscles Auscultation: Negative for rales, rhonchi or wheezes Cardio S1 normal heart sound and S2 normal heart sound Rate: tachycardic GI normal to inspection, nondistended, normoactive bowel sounds Extremity no clubbing, cyanosis or edema Skin no rashes or lesions noted Neuro CN's II-XII intact bilaterally, moves all extremities and no focal motor deficits Psych cooperative and affect normal Charges/Coding Visit Charges Inpatient E&M: 13731 Subs Hosp L2
[2024-08-20] MEDS: guaiFENesin 1,200 MG Tablet 1200 MG PO ×2 (08:04→21:55)
[2024-08-20] MEDS: Tamsulosin HCl 0.4 MG Capsule PO ×2 (08:04→21:55)
[2024-08-20] MEDS: Aspirin E.C. 81 MG Tablet PO (08:04)
[2024-08-20] MEDS: Pravastatin 40 MG Tablet PO (08:04)
[2024-08-20] MEDS: Enoxaparin 40 MG/0.4 ML Syringe SC (08:04)
[2024-08-20] MEDS: Pantoprazole Sodium 20 MG Tablet PO (08:04)
[2024-08-20 08:59] LABS: Bedside Glucose 199 mg/dL (74-106)
[2024-08-20] MEDS: 0.9% Normal Saline (1000mL) 1,000 ML 100 ML IV (09:55)
[2024-08-20] MEDS: Phenol/Sodium Phenolate 180ML 3 SPRAY MUCOUS MEM (10:54)
[2024-08-20] MEDS: levoFLOXacin IV 750 MG/150 ML BAG 100 MG IV (10:54)
[2024-08-20 11:37] LABS: Bedside Glucose 260 mg/dL (74-106)
--- NOTE | 2024-08-20 13:46 | CHAPLAIN ---
Type of Pastoral Visit _x__ Initial Visit ___ Follow-up Visit ___ On-call Visit ___ General Patient Visit ___ Spiritual Assessment ___ Family Conference ___ Bereavement ___ Rapid Response ___ Code Blue ___ Other (describe below) Pastoral Care Referral From _x__ Patient ___ Family ___ Nurse ___ Physician ___ Applications Specialist ___ Welfare Aide ___ Other (describe below) Sacrament/Intervention _x__ Active listening ___ Anointing ___ Anabaptism ___ Bereavement ___ Communion _x__ Sandra exploration ___ ___ Life review _x__ Prayer ___ Reconciliation ___ Sacrament of Sick _x__ Supportive presence ___ Wedding ___ Other (describe below) Pastoral Comments patient and spouse are in the room together; both report on sudden illness and now improvement since yesterday; pt is coping well; both welcome presence and prayer; pt and spouse give some history and their sandra community connection
[2024-08-20 16:47] LABS: Bedside Glucose 264 mg/dL (74-106)
[2024-08-20] MEDS: MELATONIN 10 MG TABLET PO (21:55)
[2024-08-20 22:10] LABS: Bedside Glucose 216 mg/dL (74-106)
[2024-08-21] VITALS (11 sets, daily range): BP systolic 132–165; BP diastolic 67–94; PULSE 96–113; RESP 14–26; TEMP 36.7–37.6; O2SAT 91–99; BMI 27.1
[2024-08-21] MEDS: hydrOXYzine 10 MG Tablet PO (03:02)
[2024-08-21] MEDS: Levothyroxine 175 MCG Tablet PO (05:43)
[2024-08-21 06:06] LABS: Absolute Lymphocyte Count 0.73 X10^3/uL (0.83-4.51); Absolute Neutrophil Count 10.8 X10^3/uL (2.0-7.7); Basophil# 0.02 X10^3/uL; Basophil% 0.2 % (0-1); Hematocrit 36.8 % (40-54); Hemoglobin 12.7 g/dL (13.0-16.5); Lymphocyte # 0.73 X10^3/ul (0.83-4.51); Lymphocyte % 5.8 % (19-41); Mean Corp Hgb Conc 34.5 g/dL (32-36); Mean Corpuscular Hgb 28.6 pg (27.0-32.0); Mean Corpuscular Volume 82.9 fL (80-94); Mean Platelet Vol. 9.5 fl (6.2-12.0); Monocyte# 0.95 X10^3/uL; Monocyte% 7.6 % (0-10); NRBC Flagged by Analyzer 0 % (0-5); Neutrophil # 10.81 X10^3/uL (2.7-7.7); Neutrophil % 85.8 % (47-70); Platelet Count 146 K/mm3 (150-450); RBC Distribution Width CV 12.9 % (11.6-14.6); Red Blood Count 4.44 M/mm3 (4.6-6.2); White Blood Count 12.6 K/mm3 (4.4-11.0)
[2024-08-21 06:24] LABS: Anion Gap 11 (5-15); BUN 19 mg/dL (4-19); Calcium,Total 8.1 mg/dL (7.6-11.0); Carbon Dioxide 21.1 mmol/L (21.0-32.0); Chloride 102 mmol/L (98-108); EST Glomerular Filtration Rate 85 (>60); Glucose 264 mg/dL (70-99); Potassium 4.3 mmol/L (3.3-5.1); Sodium Level 134 mmol/L (133-145)
[2024-08-21] MEDS: Ipratropium/Albuterol Sulfate 3 ML AMPUL.NEB INHALATION ×3 (06:49→20:09)
[2024-08-21] MEDS: Pantoprazole Sodium 20 MG Tablet PO (08:11)
[2024-08-21] MEDS: guaiFENesin 1,200 MG Tablet 1200 MG PO ×2 (08:11→23:24)
[2024-08-21] MEDS: Tamsulosin HCl 0.4 MG Capsule PO ×2 (08:11→23:24)
[2024-08-21] MEDS: Aspirin E.C. 81 MG Tablet PO (08:11)
[2024-08-21] MEDS: Pravastatin 40 MG Tablet PO (08:11)
[2024-08-21] MEDS: Enoxaparin 40 MG/0.4 ML Syringe SC (08:11)
[2024-08-21] MEDS: Insulin Lispro 100 UNIT/ML INSULN.PEN SC ×4 (08:12→23:24)
--- NOTE | 2024-08-21 08:29 | PN.CC_ITS ---
Assessment & Plan Assessment/Plan (1) Sepsis: PLAN: Plan RECOMMENDATIONS: 1. Continue empiric antibiotics, pending culture results. 2. If cultures remain negative over the next 24 to 48 hours, antibiotics can be discontinued from my perspective. 3. Encourage incentive spirometer use and mobilize patient as tolerated. 4. Continue appropriate DVT prophylaxis. 5. Will sign off from a critical care perspective. Please call with any additional questions. IMPRESSIONS: 1. Sepsis The patient presented with sepsis due probable gastroenteritis related to norovirus. Although pneumonia was a potential concern, the patient's chest imaging looks less convincing for infection, from my perspective. The patient had evidence of sepsis related organ dysfunction as evidenced by lactic acidemia, likely related to hypovolemia. The patient's clinical state has improved with volume expansion and empiric antimicrobials. Recommend continuing supportive care. If cultures are negative, antibiotics can be discontinued. 2. Remote history of lung CA/BPH/hypothyroidism/GERD/hypertension/diabetes mellitus Complicates care, management, recovery and prognosis. Continue home medications as indicated. Continue sliding scale insulin coverage ACHS, as ordered. This note was generated with [employer] dictation software. It may contain incorrect words, spelling, and punctuation that were not noted in checking the note before signing. Subjective Subjective The patient was seen and examined at the bedside this morning. Events from the last 24 hours have been reviewed. The patient is currently afebrile, hemodynamically stable and maintaining appropriate oxygen saturations on room air. No overnight events were noted. White blood cell count this morning was noted to be 12,000. Chemistry profile was unremarkable. Objective Data Objective Data The patient's most recent lab work, culture data and imaging studies have all been personally reviewed. Enteric panel was positive for norovirus. Strep and urine Legionella antigens were negative. Blood and urine cultures are pending. Vital Signs: Vital Signs Temp Pulse Resp BP Pulse Ox O2 Del Method O2 Flow Rate 98.2 F 104 H 22 H 151/77 H 92 Room Air 2 08/21/24 06:00 08/21/24 06:50 08/21/24 06:50 08/21/24 06:00 08/21/24 06:50 08/21/24 06:50 08/20/24 07:15 Oxygen Flow Rate (L/min) 2 Oxygen Delivery Method Room Air Weight: 194 lb 3.636 oz Body Mass Index (BMI) 27.1 Intake & Output: Intake and Output for Last 24 Hours 08/19/24 08/20/24 08/21/24 23:59 23:59 23:59 Intake Total 4380 / 4380 1726.67 / 1726.67 240 / 240 Output Total 1300 / 1900 1700 / 1700 1025 / 1025 Balance 3080 / 2480 26.67 / 26.67 -785 / -785 Lab / Micro Data Attestation: I reviewed the patient's lab results. 08/21/24 05:45 08/21/24 05:45 Labs: Laboratory Results - last 24 hr 08/20/24 06:19: POC Glucose 199 H 08/20/24 11:16: POC Glucose 260 H 08/20/24 16:25: POC Glucose 264 H 08/20/24 21:47: POC Glucose 216 H 08/21/24 05:45: WBC 12.6 H, RBC 4.44 L, Hgb 12.7 L, Hct 36.8 L, MCV 82.9, MCH 28.6, MCHC 34.5, RDW Std Deviation 39.0, RDW Coeff of [place] 12.9, Plt Count 146 L, MPV 9.5, Immature Gran % (Auto) 0.600, Neut % (Auto) 85.8 H, Lymph % (Auto) 5.8 L, [place] % (Auto) 7.6, Eos % (Auto) 0.0, Baso % (Auto) 0.2, Absolute Neuts (auto) 10.8 H, Absolute Lymphs (auto) 0.73 L, Nucleated RBC % 0, Sodium 134, Potassium 4.3, Chloride 102, Carbon Dioxide 21.1, Anion Gap 11, BUN 19, Creatinine 0.90, Estim Creat Clear Calc 67.40, Est GFR (MDRD) Non-Af 85, BUN/Creatinine Ratio 21.0 H, Glucose 264 H, Calcium 8.1 Micro: Microbiology 08/19/24 18:37 Sputum, Expectorated/Coughed Gram Stain - Final 08/19/24 18:37 Stool Enteric Bacteriology - Final Norovirus 08/19/24 09:35 Urine, Clean Catch Urine Culture - Preliminary Culture exhibits no growth. 08/19/24 14:42 Mucosa - Nasopharyngeal Respiratory Panel (PCR) - Final 08/19/24 15:26 Urine Catheter - Catheter Legionella Antigen - Final 08/19/24 15:26 Urine Catheter - Catheter Streptococcus pneumoniae Antigen (M - Final 08/19/24 09:01 Mucosa - Nose SARS-CoV-2, Influenza & RSV (PCR) - Final Radiography Diagnostic Testing: Radiology Impression Chest X-Ray 08/19/24 09:03 IMPRESSION: Prominent lung markings at the left lung base. Can not exclude a developing infiltrate. Elevation of the right hemidiaphragm. Reading Location: [place] [id number] Physical Exam Const alert, oriented x3 and no apparent distress Constitutional Narrative: Sitting in bedside recliner. General Appearance: cooperative HEENT normocephalic, head/scalp atraumatic and moist oral mucous membranes Eyes EOMs intact bilaterally, conjunctivae normal and no scleral icterus Neck supple General: trachea midline Chest inspection of chest normal Resp normal respiratory effort and no use of accessory muscles Auscultation: Negative for rales, rhonchi or wheezes Cardio S1 normal heart sound and S2 normal heart sound Rate: tachycardic GI normal to inspection, nondistended, normoactive bowel sounds Extremity no clubbing, cyanosis or edema Skin no rashes or lesions noted Neuro CN's II-XII intact bilaterally, moves all extremities and no focal motor deficits Psych cooperative and affect normal Charges/Coding Visit Charges Inpatient E&M: 80644 Subs Hosp L2
[2024-08-21 08:34] LABS: Bedside Glucose 257 mg/dL (74-106)
--- NOTE | 2024-08-21 09:25 | CASEMGMT ---
Addendum entered by Altagracia Sanchez 08/21/24 12:44: Steph from [facility] states that they can accept for SOC Saturday. Per pt RN, pt is currently not @ the bedside and the pt is currently forgetful. TC to pt to notify. No answer, VM left. CM to follow. Original Note: Discussed ICU Rounds with the pt as the pt is in isolation. During ICU rounds, pt states that she is still interested in HHC. Pt declines wanting to review a list of local, in-network HHC agencies and states that she would prefer [facility](SN, PT, OT). TC to Steph and referral made. Awaiting return response. Pt may also qualify for home oxygen at the time of DC. A verbal list of local in-network DME companies were provided to the pt at this time. Pt prefers [facility].?CM to continue to follow.
[2024-08-21] MEDS: levoFLOXacin IV 750 MG/150 ML BAG 100 MG IV (11:02)
[2024-08-21 11:47] LABS: Bedside Glucose 312 mg/dL (74-106)
--- NOTE | 2024-08-21 12:55 | PN.HOSP_ITS ---
Reason for Visit Reason for Visit: Diagnoses Sepsis, unspecified organism (08/19/24) Pneumonia, unspecified organism (08/19/24) Retention of urine, unspecified (08/19/24) Altered mental status, unspecified (08/19/24) Hyperglycemia, unspecified (08/19/24) Subjective Subjective Patient sitting up in chair, did get somewhat confused again overnight, did well with therapy today up and walking around, not actively vomiting, abdomen bothering him a little bit but not significantly so, does not note any significant shortness of breath but does have some cough Objective Data Objective Data Vital Signs: Vital Signs Temp Pulse Resp BP Pulse Ox O2 Del Method O2 Flow Rate 98.2 F 104 H 22 H 151/77 H 92 Room Air 2 08/21/24 06:00 08/21/24 06:50 08/21/24 06:50 08/21/24 06:00 08/21/24 06:50 08/21/24 08:00 08/20/24 07:15 Oxygen Flow Rate (L/min) 2 Oxygen Delivery Method Room Air Weight: 88.1 kg Body Mass Index (BMI) 27.1 Intake & Output: Intake and Output for Last 24 Hours 08/19/24 08/20/24 08/21/24 23:59 23:59 23:59 Intake Total 4380 / 4380 1726.67 / 1726.67 390 / 390 Output Total 1300 / 1900 1700 / 1700 1025 / 1025 Balance 3080 / 2480 26.67 / 26.67 -635 / -635 Lab / Micro Data 08/21/24 05:45 08/21/24 05:45 Labs: Laboratory Results - last 24 hr 08/20/24 16:25: POC Glucose 264 H 08/20/24 21:47: POC Glucose 216 H 08/21/24 05:45: WBC 12.6 H, RBC 4.44 L, Hgb 12.7 L, Hct 36.8 L, MCV 82.9, MCH 28.6, MCHC 34.5, RDW Std Deviation 39.0, RDW Coeff of [place] 12.9, Plt Count 146 L, MPV 9.5, Immature Gran % (Auto) 0.600, Neut % (Auto) 85.8 H, Lymph % (Auto) 5.8 L, [place] % (Auto) 7.6, Eos % (Auto) 0.0, Baso % (Auto) 0.2, Absolute Neuts (auto) 10.8 H, Absolute Lymphs (auto) 0.73 L, Nucleated RBC % 0, Sodium 134, Potassium 4.3, Chloride 102, Carbon Dioxide 21.1, Anion Gap 11, BUN 19, Creatinine 0.90, Estim Creat Clear Calc 67.40, Est GFR (MDRD) Non-Af 85, BUN/Creatinine Ratio 21.0 H, Glucose 264 H, Calcium 8.1 08/21/24 08:10: POC Glucose 257 H 08/21/24 11:27: POC Glucose 312 H Micro: Microbiology 08/19/24 18:37 Sputum, Expectorated/Coughed Gram Stain - Final 08/19/24 18:37 Sputum, Expectorated/Coughed Respiratory Culture - Preliminary Appears to be normal respiratory fer. Further studies to follow. 08/19/24 09:35 Urine, Clean Catch Urine Culture - Final Culture exhibits no growth. 08/19/24 18:37 Stool Enteric Bacteriology - Final Norovirus 08/19/24 14:42 Mucosa - Nasopharyngeal Respiratory Panel (PCR) - Final 08/19/24 15:26 Urine Catheter - Catheter Legionella Antigen - Final 08/19/24 15:26 Urine Catheter - Catheter Streptococcus pneumoniae Antigen (M - Final 08/19/24 09:01 Mucosa - Nose SARS-CoV-2, Influenza & RSV (PCR) - Final Physical Exam Narrative General: Alert, oriented, no apparent distress HEENT: Atraumatic, normocephalic Eyes: Anicteric, normal conjunctiva, extraocular movements grossly intact Neck: Supple Respiratory: No overt wheezes or rhonchi, does have some slight tachypnea but similar to previous Cardiovascular: Intermittent low-grade sinus tachycardia GI: Not rigid, little bit distended with some generalized tenderness without rebound, guarding, rigidity Extremities: No significant pitting edema appreciated, very trace amount of lower right rosenberg but very minimal Musculoskeletal: Moving all extremities Neuro: No overt focal neurological deficits Skin: No rashes appreciated Psych: Cooperative Assessment & Plan Assessment/Plan (1) Sepsis: (2) Urinary retention: (3) Pneumonia: (4) Mental status alteration: (5) Hyperglycemia: PLAN: Plan # Sepsis suspect secondary to pneumonia complicated by norovirus infection - Patient febrile, tachycardic, tachypneic with chest x-ray suggestive of pneumonia - Additionally elevated white blood cell count and elevated lactic acid, additionally hyperglycemic above baseline -Patient additionally hypoxic when EMS arrived and had acute metabolic encephalopathy secondary to above - IV fluids per sepsis protocol - Patient to be admitted to the ICU with podiatrist assistant consult - Blood and urine culture sent, you did not appear overtly infectious at this time however - Patient will be covered for pneumonia, given penicillin allergy will avoid penicillins -DuoNebs and as needed albuterol -Sputum culture, COVID negative, respiratory panel ordered -Urine antigens -Mucinex, I/S - Broad-spectrum antibiotics given significance of illness -08/20: Patient's stool positive for norovirus, unsure if this explains entire clinical picture or if illness has been complicated by secondary bacterial infection. Patient presently on IV fluids and being monitored in the ICU on antibiotics, can likely de-escalate antibiotics if cultures remain negative -08/21: Culture still negative, if they remain so for the next 24 to 48 hours will likely DC antibiotics, overall improving, intermittently little bit tachypneic and tachycardic but not profoundly so and patient is normotensive # Hypoxia -suspect secondary to pneumonia and sepsis -Patient presently on 2 L O2, is tachypneic but to some extent suspect this is presently due to his acidosis -Will monitor closely -08/20: This is improving, had been on room air, presently on 2 L of nasal cannula but overall respiratory status improved from presentation -08/21: Remains slightly tachypneic but not in overt distress, patient presently on room air # Type 2 diabetes with significant hyperglycemia -Serum glucose in ED initially 473 with an anion gap of 22 however patient also has a lactic of 6.3 so difficult to tell how much gap has been affected - Does have urine ketones however and does have an increase in beta hydroxybutyrate - Will give dose of IV insulin and schedule every 4 glucose checks with high correction factor, if this does not improve and beta hydroxybutyrate does not improve may need to make n.p.o. and have DKA protocol -Aggressive fluid hydration - Glucose checks -I's and O's -A1c in the a.m. 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 -Continue home medications, patient with Suárez due to urinary retention - 750 out after Suárez placement -08/21: Was retaining on presentation, may consider void trial prior to discharge versus urology follow-up as it is unclear the chronicity #Hypothyroidism -Continue Synthroid -08/21: TSH is low, will check free T3 and free T4 Chronic medical problems and/or problems not being actively addressed during today's encounter: #GERD -Continue PPI #Hypertension - Given patient's acute illness we will hold home antihypertensives and add back as tolerated #DVT ppx: Lovenox subcu Yadira Pruett MD Time spent in the patient's overall evaluation,decision-making process, review of diagnostic data, adjustment of management, discussion with other providers, nursing nursing and ancillary staff involved in patient's care documentation, 37 minutes Charges/Coding Visit Charges Inpatient E&M: 93458 Subs Hosp L2
--- NOTE | 2024-08-21 14:17 | CASEMGMT ---
Lisa, pt , returns call to this RN CM. Lisa states that she discussed HH with the pt and at this time, the pt and the pt decline HH or OP Therapy needs. Pt and pt both feel safe returning home at the time of DC without HHC/OP Tx. TC to Steph @ [facility] HH and referral canceled. Pt made aware that the pt can f/u with his PCP if the pt changes his mind. Pt staters understanding and states that the pt son can also help at home if needed. Pt is also aware that the pt has the potential for qualifying for home oxygen. Lisa states understanding, thanks this RN CM, and denies further questions or concerns at this time.
[2024-08-21 16:13] LABS: Bedside Glucose 269 mg/dL (74-106)
[2024-08-21] MEDS: Phenol/Sodium Phenolate 180ML 3 SPRAY MUCOUS MEM (23:24)
[2024-08-21] MEDS: MELATONIN 10 MG TABLET PO (23:24)
[2024-08-21] MEDS: 0.9% Saline Lock 10 ML Syringe IV (23:25)
[2024-08-21 23:54] LABS: Bedside Glucose 211 mg/dL (74-106)
[2024-08-22] VITALS (8 sets, daily range): BP systolic 114–158; BP diastolic 67–87; PULSE 89–107; RESP 15–23; TEMP 36.6–37.2; O2SAT 92–95; BMI 26.7
[2024-08-22] MEDS: Ipratropium/Albuterol Sulfate 3 ML AMPUL.NEB INHALATION ×3 (01:20→19:48)
[2024-08-22 07:20] LABS: Bedside Glucose 220 mg/dL (74-106)
[2024-08-22 07:24] LABS: Absolute Lymphocyte Count 0.88 X10^3/uL (0.83-4.51); Absolute Neutrophil Count 8.4 X10^3/uL (2.0-7.7); Basophil# 0.02 X10^3/uL; Basophil% 0.2 % (0-1); Eosinophil# 0.06 X10^3/uL; Eosinophils% 0.6 % (0-5); Hematocrit 38.2 % (40-54); Hemoglobin 12.9 g/dL (13.0-16.5); Lymphocyte # 0.88 X10^3/ul (0.83-4.51); Lymphocyte % 8.7 % (19-41); Mean Corp Hgb Conc 33.8 g/dL (32-36); Mean Corpuscular Hgb 28.5 pg (27.0-32.0); Mean Corpuscular Volume 84.5 fL (80-94); Mean Platelet Vol. 9.8 fl (6.2-12.0); Monocyte# 0.78 X10^3/uL; Monocyte% 7.7 % (0-10); NRBC Flagged by Analyzer 0 % (0-5); Neutrophil # 8.36 X10^3/uL (2.7-7.7); Neutrophil % 82.2 % (47-70); Platelet Count 181 K/mm3 (150-450); RBC Distribution Width CV 12.7 % (11.6-14.6); RBC Distribution Width SD 38.8 fl (35.1-43.9); Red Blood Count 4.52 M/mm3 (4.6-6.2); White Blood Count 10.2 K/mm3 (4.4-11.0)
[2024-08-22 07:42] LABS: Anion Gap 10 (5-15); BUN 21 mg/dL (4-19); BUN/Creat Ratio 20.6 RATIO (10-20); Calcium,Total 8.4 mg/dL (7.6-11.0); Carbon Dioxide 25.2 mmol/L (21.0-32.0); Chloride 102 mmol/L (98-108); Creatinine, Serum 1.02 mg/dL (0.70-1.20); EST Glomerular Filtration Rate 73 (>60); Estimated Creatinine Clearance 59.47 ml/min (50-250); Glucose 192 mg/dL (70-99); Potassium 3.7 mmol/L (3.3-5.1); Sodium Level 137 mmol/L (133-145)
[2024-08-22] MEDS: Pantoprazole Sodium 20 MG Tablet PO (08:45)
[2024-08-22] MEDS: Enoxaparin 40 MG/0.4 ML Syringe SC (08:45)
[2024-08-22] MEDS: Glucerna Shake 120 ML LIQUID PO (08:45)
[2024-08-22] MEDS: Tamsulosin HCl 0.4 MG Capsule PO ×2 (08:45→20:35)
[2024-08-22] MEDS: guaiFENesin 1,200 MG Tablet 1200 MG PO ×2 (08:46→20:36)
[2024-08-22] MEDS: Aspirin E.C. 81 MG Tablet PO (08:46)
[2024-08-22] MEDS: Pravastatin 40 MG Tablet PO (08:46)
[2024-08-22] MEDS: levoFLOXacin IV 750 MG/150 ML BAG 100 MG IV (10:41)
[2024-08-22] MEDS: Insulin Lispro 100 UNIT/ML INSULN.PEN SC ×3 (10:45→20:34)
[2024-08-22 11:29] LABS: Bedside Glucose 303 mg/dL (74-106)
[2024-08-22 16:50] LABS: Bedside Glucose 321 mg/dL (74-106)
--- NOTE | 2024-08-22 17:01 | NURSING ---
Suárez catheter removed per verbal order at bedside from Dr. Pruett. Will monitor for patient to urinate via urinal or in toilet with assistance.
--- NOTE | 2024-08-22 17:23 | PN.HOSP_ITS ---
Reason for Visit Reason for Visit: Diagnoses Sepsis, unspecified organism (08/19/24) Pneumonia, unspecified organism (08/19/24) Retention of urine, unspecified (08/19/24) Altered mental status, unspecified (08/19/24) Hyperglycemia, unspecified (08/19/24) Subjective Subjective No abdominal pain, has not had another bowel movement, reports his throat has been a little bit sore since he came in due to vomiting at home, no chest pain or shortness of breath, no cough Objective Data Objective Data Vital Signs: Vital Signs Temp Pulse Resp BP Pulse Ox O2 Del Method O2 Flow Rate 97.8 F 107 H 15 114/67 95 Room Air 2 08/22/24 14:28 08/22/24 14:28 08/22/24 14:28 08/22/24 14:28 08/22/24 14:28 08/22/24 14:28 08/20/24 07:15 Oxygen Flow Rate (L/min) 2 Oxygen Delivery Method Room Air Weight: 86.9 kg Body Mass Index (BMI) 26.7 Intake & Output: Intake and Output for Last 24 Hours 08/20/24 08/21/24 08/22/24 23:59 23:59 23:59 Intake Total 1726.67 / 1726.67 630 / 630 510 / 510 Output Total 1700 / 1700 1750 / 1750 Balance 26.67 / 26.67 -1120 / -1120 510 / 510 Lab / Micro Data 08/22/24 05:30 08/22/24 05:30 Labs: Laboratory Results - last 24 hr 08/21/24 23:21: POC Glucose 211 H 08/22/24 05:30: WBC 10.2, RBC 4.52 L, Hgb 12.9 L, Hct 38.2 L, MCV 84.5, MCH 28.5, MCHC 33.8, RDW Std Deviation 38.8, RDW Coeff of [place] 12.7, Plt Count 181, MPV 9.8, Immature Gran % (Auto) 0.600, Neut % (Auto) 82.2 H, Lymph % (Auto) 8.7 L, [place] % (Auto) 7.7, Eos % (Auto) 0.6, Baso % (Auto) 0.2, Absolute Neuts (auto) 8.4 H, Absolute Lymphs (auto) 0.88, Nucleated RBC % 0, Sodium 137, Potassium 3.7, Chloride 102, Carbon Dioxide 25.2, Anion Gap 10, BUN 21 H, Creatinine 1.02, Estim Creat Clear Calc 59.47, Est GFR (MDRD) Non-Af 73, BUN/Creatinine Ratio 20.6 H, Glucose 192 H, Calcium 8.4 08/22/24 07:00: POC Glucose 220 H 08/22/24 10:43: POC Glucose 303 H 08/22/24 16:08: POC Glucose 321 H Micro: Microbiology 08/19/24 18:37 Sputum, Expectorated/Coughed Gram Stain - Final 08/19/24 18:37 Sputum, Expectorated/Coughed Respiratory Culture - Preliminary Appears to be normal respiratory fer. Further studies to follow. 08/19/24 09:35 Urine, Clean Catch Urine Culture - Final Culture exhibits no growth. 08/19/24 18:37 Stool Enteric Bacteriology - Final Norovirus 08/19/24 14:42 Mucosa - Nasopharyngeal Respiratory Panel (PCR) - Final 08/19/24 15:26 Urine Catheter - Catheter Legionella Antigen - Final 08/19/24 15:26 Urine Catheter - Catheter Streptococcus pneumoniae Antigen (M - Final 08/19/24 09:01 Mucosa - Nose SARS-CoV-2, Influenza & RSV (PCR) - Final Physical Exam Narrative General: Alert, no apparent distress HEENT: Atraumatic, normocephalic Eyes: Anicteric, normal conjunctiva, extraocular movements grossly intact Neck: Supple Respiratory: No overt wheezes or rhonchi, tachypnea improving Cardiovascular: Intermittent low-grade sinus tachycardia GI: No significant tenderness, rebound, guarding, or rigidity Extremities: No significant pitting edema appreciated, very trace amount of lower right rosenberg but very minimal Musculoskeletal: Moving all extremities Neuro: No overt focal neurological deficits Skin: No rashes appreciated Psych: Cooperative Assessment & Plan Assessment/Plan (1) Sepsis: (2) Urinary retention: (3) Pneumonia: (4) Mental status alteration: (5) Hyperglycemia: PLAN: Plan # Sepsis suspect secondary to pneumonia complicated by norovirus infection - Patient febrile, tachycardic, tachypneic with chest x-ray suggestive of pneumonia - Additionally elevated white blood cell count and elevated lactic acid, additionally hyperglycemic above baseline -Patient additionally hypoxic when EMS arrived and had acute metabolic encephalopathy secondary to above - IV fluids per sepsis protocol - Patient to be admitted to the ICU with website admin consult - Blood and urine culture sent, you did not appear overtly infectious at this time however - Patient will be covered for pneumonia, given penicillin allergy will avoid penicillins -DuoNebs and as needed albuterol -Sputum culture, COVID negative, respiratory panel ordered -Urine antigens -Mucinex, I/S - Broad-spectrum antibiotics given significance of illness -08/20: Patient's stool positive for norovirus, unsure if this explains entire clinical picture or if illness has been complicated by secondary bacterial infection. Patient presently on IV fluids and being monitored in the ICU on antibiotics, can likely de-escalate antibiotics if cultures remain negative -08/21: Culture still negative, if they remain so for the next 24 to 48 hours will likely DC antibiotics, overall improving, intermittently little bit tachypneic and tachycardic but not profoundly so and patient is normotensive -08/22: Will plan to DC antibiotics tomorrow if culture still negative, patient is evenings is feeling somewhat weak but also did not sleep well last night # Hypoxia -suspect secondary to pneumonia and sepsis -Patient presently on 2 L O2, is tachypneic but to some extent suspect this is presently due to his acidosis -Will monitor closely -08/20: This is improving, had been on room air, presently on 2 L of nasal cannula but overall respiratory status improved from presentation -08/21: Remains slightly tachypneic but not in overt distress, patient presently on room air -08/22: Resting comfortably on room air # Type 2 diabetes with significant hyperglycemia -Serum glucose in ED initially 473 with an anion gap of 22 however patient also has a lactic of 6.3 so difficult to tell how much gap has been affected - Does have urine ketones however and does have an increase in beta hydroxybutyrate - Will give dose of IV insulin and schedule every 4 glucose checks with high correction factor, if this does not improve and beta hydroxybutyrate does not improve may need to make n.p.o. and have DKA protocol -Aggressive fluid hydration - Glucose checks -I's and O's -A1c in the a.m. 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 -Continue home medications, patient with Suárez due to urinary retention - 750 out after Suárez placement -08/21: Was retaining on presentation, may consider void trial prior to discharge versus urology follow-up as it is unclear the chronicity -08/22: Will DC Suárez catheter and attempt void trial, if needed will replace prior to discharge if patient continues to retain-can follow-up with urology on an outpatient basis #Hypothyroidism -Continue Synthroid -08/21: TSH is low, will check free T3 and free T4 -08/22: Free T4 is high, slightly decreased patient's Synthroid, query if this is part of the reason for patient's tachycardia as patient otherwise has significantly improved, continue to monitor closely, will need follow-up on outpatient basis, patient and verbalized understanding Chronic medical problems and/or problems not being actively addressed during today's encounter: #GERD -Continue PPI #Hypertension - Given patient's acute illness we will hold home antihypertensives and add back as tolerated #DVT ppx: Lovenox subcu Yadira Pruett MD Time spent in the patient's overall evaluation,decision-making process, review of diagnostic data, adjustment of management, discussion with other providers, nursing nursing and ancillary staff involved in patient's care documentation, 38 minutes Charges/Coding Visit Charges Inpatient E&M: 38007 Subs Hosp L2
[2024-08-22] MEDS: 0.9% Saline Lock 10 ML Syringe IV (20:34)
[2024-08-22] MEDS: MELATONIN 10 MG TABLET PO (20:35)
[2024-08-22 21:07] LABS: Bedside Glucose 245 mg/dL (74-106)
[2024-08-23 03:20] VITALS: BP 160/87; PULSE 86; RESP 18; TEMP 36.6; O2SAT 94
[2024-08-23 04:47] VITALS: BMI 26.2
[2024-08-23] MEDS: Levothyroxine 150 MCG Tablet PO (05:34)
[2024-08-23 06:08] LABS: Absolute Neutrophil Count 6.3 X10^3/uL (2.0-7.7); Basophil# 0.04 X10^3/uL; Basophil% 0.5 % (0-1); Eosinophils% 1.2 % (0-5); Hematocrit 38.8 % (40-54); Lymphocyte % 13.3 % (19-41); Mean Corp Hgb Conc 33.5 g/dL (32-36); Mean Corpuscular Hgb 28.3 pg (27.0-32.0); Mean Corpuscular Volume 84.5 fL (80-94); Mean Platelet Vol. 9.7 fl (6.2-12.0); Monocyte% 8.5 % (0-10); NRBC Flagged by Analyzer 0 % (0-5); Neutrophil # 6.25 X10^3/uL (2.7-7.7); Neutrophil % 75.4 % (47-70); Platelet Count 194 K/mm3 (150-450); RBC Distribution Width CV 12.8 % (11.6-14.6); RBC Distribution Width SD 39.5 fl (35.1-43.9); Red Blood Count 4.59 M/mm3 (4.6-6.2); White Blood Count 8.3 K/mm3 (4.4-11.0)
[2024-08-23] MEDS: Insulin Lispro 100 UNIT/ML INSULN.PEN SC ×2 (06:31→11:29)
[2024-08-23 06:51] LABS: Bedside Glucose 234 mg/dL (74-106)
[2024-08-23 07:02] VITALS: PULSE 89; RESP 18
[2024-08-23] MEDS: Ipratropium/Albuterol Sulfate 3 ML AMPUL.NEB INHALATION (07:02)
[2024-08-23 07:44] LABS: Anion Gap 11 (5-15); BUN 21 mg/dL (4-19); Calcium,Total 8.2 mg/dL (7.6-11.0); Carbon Dioxide 23.6 mmol/L (21.0-32.0); Chloride 102 mmol/L (98-108); Creatinine, Serum 0.99 mg/dL (0.70-1.20); EST Glomerular Filtration Rate 76 (>60); Estimated Creatinine Clearance 61.27 ml/min (50-250); Glucose 235 mg/dL (70-99); Sodium Level 136 mmol/L (133-145)
[2024-08-23] MEDS: guaiFENesin 1,200 MG Tablet 1200 MG PO (09:00)
[2024-08-23] MEDS: Pantoprazole Sodium 20 MG Tablet PO (09:00)
[2024-08-23] MEDS: Aspirin E.C. 81 MG Tablet PO (09:00)
[2024-08-23] MEDS: Pravastatin 40 MG Tablet PO (09:00)
[2024-08-23] MEDS: Enoxaparin 40 MG/0.4 ML Syringe SC (09:00)
[2024-08-23] MEDS: levoFLOXacin IV 750 MG/150 ML BAG 100 MG IV (09:01)
[2024-08-23] MEDS: Tamsulosin HCl 0.4 MG Capsule PO (09:01)
[2024-08-23 09:10] VITALS: BP 145/68; PULSE 94; RESP 18; TEMP 36.9; O2SAT 92
[2024-08-23] MEDS: Glucerna Shake 120 ML LIQUID PO (09:34)
[2024-08-23] MEDS: Insulin Glargine-YFGN 100 UNIT/ML Pen SC (09:35)
--- NOTE | 2024-08-23 12:05 | PCM.DC ---
Discharge Instructions Diet Discharge Diet: 2000 Calorie Control Diet and Carb Control Diet DC O2, CPAP, BIPAP needs Home O2 Discharge instructions: No Dressing / Incision Discharge Activity: - (Increase activity as tolerated) Follow Up Care Test Results: Test results from this visit will be discussed in further detail at your follow-up appointment, if applicable. Discharge Plan Admission Admit Date/Time: 08/19/24 11:22 Primary Reason for Your Visit: Confusion, altered mental status Attending Provider: Yadira Pruett Primary Care Provider: Yvan Cardona Instructions Patient Instructions: Understanding Norovirus, ED Fall Prevention Additional Instructions / Restrictions: DISCHARGE INSTRUCTIONS PLEASE READ *Please take this with you to your next doctors appointment* -Your Synthroid has been decreased to 150 mcg daily given your thyroid levels on admission, and is very possible this may need further adjustments through your prescribing physician but at this time you will be discharged on 150 mcg of Synthroid, new prescription was sent to preferred pharmacy on file. Please follow-up closely with your primary care physician as they will need to recheck labs in the future for further adjustments - would recommend restarting your losartan on 08/26 - resume your home diabetes medications. Will be important that you follow-up with your primary care physician closely for monitoring and any further adjustments needed - You will continue your home tamsulosin, if you begin to have any trouble urinating in the future please contact your PCP/prescribing physician or proceed to the emergency department if you have any emergent needs -Please call your primary care provider's office upon discharge to schedule a hospital follow up within 1 week. -For any concerning signs or symptoms please call 911 or proceed to the nearest emergency department Discharge Orders/Prescriptions Prescriptions: New levothyroxine 150 mcg Tablet 150 mcg PO DAILY 30 Days Qty: 30 0RF Continued glimepiride 2 MG tablet 2 mg PO BID pravastatin 40 mg tablet 40 mg PO DAILY tamsulosin 0.4 mg capsule 0.4 mg PO BID pioglitazone 30 mg tablet 30 mg PO DAILY Janumet XR 100-1,000 mg tablet, ER multiphase 24 hr 1 tab PO DAILY aspirin [Adult Aspirin Regimen] 81 mg tablet,delayed release (DR/EC) 81 mg PO DAILY omeprazole 20 mg capsule,delayed release(DR/EC) 20 mg PO DAILY cholecalciferol (vitamin D3) 50 mcg (2,000 unit) capsule 50 mcg PO DAILY Held losartan 100 mg tablet 100 mg PO DAILY Hold Instructions: Resume on 08/26/24. Discontinued levothyroxine [Synthroid] 175 mcg tablet 175 mcg PO DAILY Referrals / Follow Up: Yvan Cardona MD [Primary Care Provider] - Within 1 Week Disposition Disposition (needs filled in before D/C Order can be placed): Home, Self Care
--- NOTE | 2024-08-23 12:25 | PCM.DC.SUM ---
Providers Date of Admission: 08/19/24 Date of Discharge: 08/23/24 Primary Care Physician: Dr. Yvan Cardona MD Consultations 08/19/24 13:20 Consult: Branch Store Manager / Pulmonary Medicine Routine Consulting Provider: Intensivists/Pulmonary Med Reason for Consult: sepsis, lactic 6.3, tachy, tachypneic, febrile EMERGENT Consult: No MD Notified: Yes Date Notified: 08/19/24 Time Notified: 11:39 Method of Notification: Text Reason For Visit: Viral sepsis secondary to norovirus Diagnosis Discharge Diagnosis (1) Sepsis: Status: Acute Code(s): A41.9 - Sepsis, unspecified organism (2) Urinary retention: Status: Acute Code(s): R33.9 - Retention of urine, unspecified (3) Mental status alteration: Status: Acute Code(s): R41.82 - Altered mental status, unspecified (4) Hyperglycemia: Status: Acute Code(s): R73.9 - Hyperglycemia, unspecified Plan # Sepsis suspect secondary to norovirus infection # Hypoxia suspect secondary to sepsis # Type 2 diabetes with significant hyperglycemia #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 Instructions: Resume on 08/26/24. omeprazole 20 mg capsule,delayed release 20 mg PO DAILY reflux 08/19/24 pioglitazone 30 mg tablet 30 mg PO DAILY diabetes 08/19/24 pravastatin 40 mg tablet 40 mg PO DAILY cholesterol 08/19/24 sitagliptin phos 100 mg-metformin ER 1,000 mg tablet,extend rel 24h mp (Janumet XR) 1 tab PO DAILY diabetes 08/19/24 tamsulosin 0.4 mg capsule 0.4 mg PO BID prostate 08/19/24 levothyroxine 150 mcg tablet 150 mcg PO DAILY 30 days #30 tabs 08/23/24 Hospital Course Summary of Care Provided Minutes Spent on Discharge: 33 Hospital Course: SANTOS MAZA, is a 84 M with a history of BPH, GERD, hypertension, hypothyroidism, diabetes presented [facility] ED 08/19/24 with nausea, vomiting, weakness and altered mental status. Patient had been in usual health the day before however he woke up at 4 AM and had a couple of episodes of diarrhea with multiple episodes of nausea and vomiting he was feeling weak and noted he was confused, patient was found to be hypoxic by EMS with O2 sat in the 80s requiring 2 L of O2, also tachypneic, tachycardic, febrile. Chest x-ray queried if there could be a developing pneumonia so he was started on broad-spectrum antibiotics, elevated lactic acid was noted and patient given IV fluids per sepsis protocol hospitalist contacted for admission. Also on arrival patient found to be retaining urine and Suárez was placed with 750 cc output. During patient's hospitalization cultures were all negative and patient was found to have norovirus, suspected that patient's sepsis was due to gastroenteritis related to norovirus. Patient slowly improved and cultures remain negative including sputum culture so antibiotics discontinued. Patient had Suárez removed day prior to discharge and did not seem to be struggling with emptying his bladder so Suárez was not replaced. Also of note patient did have some persistent sinus tachycardia, low-grade, with normal to high blood pressure, TSH was low and free T3 and free T4 were elevated, patient's Synthroid dose was decreased and patient's tachycardia improved to heart rate of around 100. On day of discharge patient still feeling somewhat weak but otherwise feeling much better, patient comfortable with going home, agreeable at this time. Discussed that now that patient is medically stable following hospitalization only potentially worsen patient's weakness and make it harder to go home, after discussing this it was agreed by all parties for patient to discharge home. Discharge instructions as follows: -Your Synthroid has been decreased to 150 mcg daily given your thyroid levels on admission, and is very possible this may need further adjustments through your prescribing physician but at this time you will be discharged on 150 mcg of Synthroid, new prescription was sent to preferred pharmacy on file. Please follow-up closely with your primary care physician as they will need to recheck labs in the future for further adjustments - would recommend restarting your losartan on 08/26 - resume your home diabetes medications. Will be important that you follow-up with your primary care physician closely for monitoring and any further adjustments needed - You will continue your home tamsulosin, if you begin to have any trouble urinating in the future please contact your PCP/prescribing physician or proceed to the emergency department if you have any emergent needs -Please call your primary care provider's office upon discharge to schedule a hospital follow up within 1 week. -For any concerning signs or symptoms please call 911 or proceed to the nearest emergency department Physical Exam Narrative General: Alert, oriented, no apparent distress HEENT: Atraumatic, normocephalic Eyes: Anicteric, normal conjunctiva, extraocular movements grossly intact Neck: Supple Respiratory: Normal respiratory effort Cardiovascular: Regular rhythm with a rate of about 100 GI: Soft, nontender, nondistended Extremities: No significant edema Musculoskeletal: Moving all extremities Neuro: No overt focal neurological deficits Skin: No rashes appreciated Psych: Cooperative Weight / BMI Weight Weight: 85.3 kg Body Mass Index (BMI) 26.2 ABG / Lab / Microbiology Data 08/23/24 05:21 08/23/24 05:21 Laboratory: Laboratory Results - last 24 hr 08/22/24 20:33: POC Glucose 245 H 08/23/24 05:21: WBC 8.3, RBC 4.59 L, Hgb 13.0, Hct 38.8 L, MCV 84.5, MCH 28.3, MCHC 33.5, RDW Std Deviation 39.5, RDW Coeff of [place] 12.8, Plt Count 194, MPV 9.7, Immature Gran % (Auto) 1.100 H, Neut % (Auto) 75.4 H, Lymph % (Auto) 13.3 L, [place] % (Auto) 8.5, Eos % (Auto) 1.2, Baso % (Auto) 0.5, Absolute Neuts (auto) 6.3, Absolute Lymphs (auto) 1.10, Nucleated RBC % 0, Sodium 136, Potassium 4.0, Chloride 102, Carbon Dioxide 23.6, Anion Gap 11, BUN 21 H, Creatinine 0.99, Estim Creat Clear Calc 61.27, Est GFR (MDRD) Non-Af 76, BUN/Creatinine Ratio 21.0 H, Glucose 235 H, Calcium 8.2 08/23/24 06:30: POC Glucose 234 H Microbiology: Microbiology 08/19/24 18:37 Sputum, Expectorated/Coughed Gram Stain - Final 08/19/24 18:37 Sputum, Expectorated/Coughed Respiratory Culture - Final 08/19/24 09:35 Urine, Clean Catch Urine Culture - Final Culture exhibits no growth. 08/19/24 18:37 Stool Enteric Bacteriology - Final Norovirus 08/19/24 14:42 Mucosa - Nasopharyngeal Respiratory Panel (PCR) - Final 08/19/24 15:26 Urine Catheter - Catheter Legionella Antigen - Final 08/19/24 15:26 Urine Catheter - Catheter Streptococcus pneumoniae Antigen (M - Final 08/19/24 09:01 Mucosa - Nose SARS-CoV-2, Influenza & RSV (PCR) - Final D/C Instructions Discharge Diet: 1999 Calorie Control Diet and Carb Control Diet DC O2, CPAP, BIPAP Needs Home O2 Discharge instructions: No Meaningful Use Info Meaningful Use Meaningful Use Diagnoses (Choose all that apply): None applicable Ischemic Stroke Statin Dosing Therapy Reference: STATIN DOSE THERAPY REFERENCE: * Patients > 75 years receive moderate or high dose statin therapy. * Patients 75 years or YOUNGER should receive HIGH intensity statin dose unless contraindicated. You will be required to document reason for non-treatment if statin daily dose does not meet guidelines. HIGH DOSE STATIN THERAPY DAILY Atorvastatin > than or = to 40 mg Rosuvastatin > than or = to 20 mg Amlodipine + Atorvastatin > than or = to 2.5/40 mg Ezetimibe + Simvastatin 10/80 mg Simvastatin 80mg Discharge Plan Admission Admit Date/Time: 08/19/24 11:22 Primary Reason for Your Visit: Confusion, altered mental status Attending Provider: Yadira Pruett Primary Care Provider: Yvan Cardona Instructions Patient Instructions: Understanding Norovirus, ED Fall Prevention Additional Instructions / Restrictions: DISCHARGE INSTRUCTIONS PLEASE READ *Please take this with you to your next doctors appointment* -Your Synthroid has been decreased to 150 mcg daily given your thyroid levels on admission, and is very possible this may need further adjustments through your prescribing physician but at this time you will be discharged on 150 mcg of Synthroid, new prescription was sent to preferred pharmacy on file. Please follow-up closely with your primary care physician as they will need to recheck labs in the future for further adjustments - would recommend restarting your losartan on 08/26 - resume your home diabetes medications. Will be important that you follow-up with your primary care physician closely for monitoring and any further adjustments needed - You will continue your home tamsulosin, if you begin to have any trouble urinating in the future please contact your PCP/prescribing physician or proceed to the emergency department if you have any emergent needs -Please call your primary care provider's office upon discharge to schedule a hospital follow up within 1 week. -For any concerning signs or symptoms please call 911 or proceed to the nearest emergency department Discharge Orders/Prescriptions Prescriptions: New levothyroxine 150 mcg Tablet 150 mcg PO DAILY 30 Days Qty: 30 0RF Continued glimepiride 2 MG tablet 2 mg PO BID pravastatin 40 mg tablet 40 mg PO DAILY tamsulosin 0.4 mg capsule 0.4 mg PO BID pioglitazone 30 mg tablet 30 mg PO DAILY Janumet XR 100-1,000 mg tablet, ER multiphase 24 hr 1 tab PO DAILY aspirin [Adult Aspirin Regimen] 81 mg tablet,delayed release (DR/EC) 81 mg PO DAILY omeprazole 20 mg capsule,delayed release(DR/EC) 20 mg PO DAILY cholecalciferol (vitamin D3) 50 mcg (2,000 unit) capsule 50 mcg PO DAILY Held losartan 100 mg tablet 100 mg PO DAILY Hold Instructions: Resume on 08/26/24. Discontinued levothyroxine [Synthroid] 175 mcg tablet 175 mcg PO DAILY Referrals / Follow Up: Yvan Cardona MD [Primary Care Provider] - Within 1 Week Disposition Disposition (needs filled in before D/C Order can be placed): Home, Self Care Charges/Coding Visit Charges Inpatient E&M: 26588 Disch Hosp >30min
[2024-08-23 12:28] VITALS: O2SAT 92; O2SAT 94
[2024-08-24 02:38] LABS: Bedside Glucose 348 mg/dL (74-106)
== END 2024-08-23 12:59 | disposition home or self-care (01) | DRG 871 ==
LOC: ED 11:25 → ICU 11:42 → PCU 08-21 17:49
PROVIDERS: Admitting Provider Internal Medicine; Emergency Provider Emergency Medicine; PCP Family Medicine; Visit Provider Internal Medicine
DX: A41.9 Sepsis, unspecified organism (principal); G93.41 Metabolic encephalopathy; J18.9 Pneumonia, unspecified organism; E87.20 Acidosis, unspecified; E11.65 Type 2 diabetes mellitus with hyperglycemia; I10 Essential (primary) hypertension; E03.9 Hypothyroidism, unspecified; K21.9 Gastro-esophageal reflux disease without esophagitis; K52.9 Noninfective gastroenteritis and colitis, unspecified; N40.1 Benign prostatic hyperplasia with lower urinary tract symptoms; R33.9 Retention of urine, unspecified; B34.8 Other viral infections of unspecified site; Z79.82 Long term (current) use of aspirin; Z79.84 Long term (current) use of oral hypoglycemic drugs; Z79.899 Other long term (current) drug therapy
CPT/HCPCS: 36415; 51702; 71045; 80048; 80053; 81001; 82010; 82962; 83036; 83605; 83690; 84439; 84443; 84481; 85025; 85610; 85730; 87040; 87070; 87086; 87205; 87449; 87506; 87631; 87633; 93005; 94640; 94762; 97162; 97166; 97530; 99285; A4216

== ENCOUNTER → 2025-01-27 | Outpatient (CLI) | payer MEDICARE, OTHER, SELFPAY ==
--- OUTSIDE RECORDS SUMMARY | 2025-01-27 07:30 | XMS RPT_ITS | CCD ---
Author Organization [facility] Care Team Providers Care Fitting Room Operator Name Role Phone Kayden Wilkinson MD Unavailable Yvan Rahman MD Primary Care Provider [phone] Kayden Wilkinson MD Unavailable Yvan Rahman MD Primary Care Provider Livier MEJIAS.GRAVITY PROSPECTING OPERATOR HELPER, Bernice Unavailable Hugo OSBORN, Zahra Unavailable Dr. Yvan Rahman MD Primary Care Provider [phone] Og MATHIAS, Denilson Emergency Provider Flynn MATHIAS, Dr. May Admit Provider Dr. Yadira Pruett MD Attending Provider Dr. Yadira Pruett MD Other Provider Dr. Lui Rose MD Other Provider Dr. Chau Grimes MD Other Provider Dr. Huan Merrill MD Other Provider Dr. Case Paredes DO Attending Provider [phone] Dr. Case Paredes DO Other Provider El MATHIAS, Dr. Brian Guzman Other Provider Dr. Filiberto Everett MD Other Provider Dr. Harjit Schwartz MD Other Provider Cam MATHIAS, Dr. Maxwell Other Provider Sanna MATHIAS, Dr. Faulkner Other Provider Rashel MATHIAS, Dr. Downing Other Provider [phone] Robb MATHIAS, Dr. Lee Other Provider Óscar MATHIAS, Dr. Driscoll Other Provider Sb MATHIAS, Dr. Chirinos Other Provider Unavailabl ke Resendez MD, Dr. Crockett Other Provider [phone] Ford MATHIAS, Dr. Powers Other Provider Yovana MATHIAS, Dr. Mejia Other Provider Guanakito MATHIAS, Dr. Flores Other Provider Lavonne PHELPS, Dr. Booker Other Provider Amirah MATHIAS, Dr. Skaggs Other Provider [phone] Shavon MATHIAS, Dr. Nguyen Other Provider Dr. Swapnil Silva DO Other Provider Castillo MATHIAS, Dr. Bass Other Provider [phone] Ayan MATHIAS, Dr. Levy Other Provider Yvan Rahman MD Primary Care Provider Livier STAFFING ASSISTANT.GRAVITY PROSPECTING OPERATOR HELPER, Bernice Unavailable Hugo OSBORN, Zahra Unavailable Dr. Yvan Rahman MD Primary Care Provider Dr. Yvan Rahman MD Attending Provider Dr. Yvan Rahman MD Referring Provider Dr. Rex Pugh MD Attending Provider [phone] Moises MATHIAS, Dr. Peters Attending Provider [phone] YVAN RAHMAN Primary Care Unavailable YVAN RAHMAN Attending Unavailable YVAN RAHMAN Primary Care Unavailable YVAN RAHMAN Referring Unavailable YVAN RAHMAN Primary Care Unavailable YVAN RAHMAN Referring Unavailable YVAN RAHMAN Referring Unavailable YVAN RAHMAN Primary Care Unavailable AILYN, YVAN A Primary Care Unavailable AILYN, YVAN A Referring Unavailable MORRO DURHAM Attending Unavailable AILYN, YVAN A Referring Unavailable AILYN, YVAN A Primary Care Unavailable MORRO DURHAM Attending Unavailable AILYN, YVAN A Referring Unavailable AILYN, YVAN A Primary Care Unavailable LIVIA PAREDES Attending Unavailable AILYN, YVAN A Referring Unavailable AILYN, YVAN A Primary Care Unavailable AILYN, YVAN A Primary Care Unavailable AILYN, YVAN A Referring Unavailable AILYN, YVAN A Attending Unavailable AILYN, YVAN A Primary Care Unavailable LIVIER, BERNICE Attending Unavailable AILYN, YVAN A Primary Care Unavailable AILYN, YVAN A Primary Care Unavailable AILYN, YVAN A Attending Unavailable AILYN, YVAN A Primary Care Unavailable AILYN, YVAN A Referring Unavailable MORRO DURHAM Attending Unavailable KNLESLEY, BERNICE Referring Unavailable AILYN, YVAN A Primary Care Unavailable AILYN, YVAN A Primary Care Unavailable AILYN, YVAN A Referring Unavailable AILYN, YVAN A Primary Care Unavailable AILYN, YVAN A Attending Unavailable LAETHA REYNOLDS Attending Unavailable AILYN, YVAN A Primary Care Unavailable AILYN, YVAN A Referring Unavailable KNBERNICE SUTTON Referring Unavailable AILYN, YVAN A Primary Care Unavailable Ailyn, Yvan Primary Care Unavailable Yadira Pruett Attending Unavailable Yadira Pruett Consulting Unavailable Yadira Pruett Admitting Unavailable Ailyn, Yvan Referring Unavailable Ailyn, Yvan Primary Care Unavailable Rex Pugh Attending Unavailable Ailyn Yvan Attending Unavailable Ailyn, Yvan Referring Unavailable Ailyn, Yvan Primary Care Unavailable Ailyn, Yvan Primary Care Unavailable MoisesFran arauz Referring Unavailable MoisesFran arauz Attending Unavailable Lui Rose Consulting Unavailable Ailyn, Yvan Primary Care Unavailable Yadira Pruett Attending Unavailable Yadira Pruett Admitting Unavailable Chau Grimes Consulting Unavailable Huan Merrill Consulting Unavailable Case Paredes Consulting Unavailable Brian Gallegos Consulting Unavailable Filiberto Everett Consulting Unavailable Harjit Schwartz Consulting Unavailable Alissa Levy Consulting Unavailab Kaushik Khan Consulting Unavailable Chang Kiser Consulting Unavailable Jesus Zamudio Consulting Unavailable Yamila Cantrell Consulting Unavailable Candis Basurto Consulting Unavailable ResendezKeira bowen Consulting Unavailable Ford, Gio Consulting Unavailable Irukulla, Roberto Consulting Unavailable Guanakito, Mark Consulting Unavailable Dhesi, Jhony Consulting Unavailable Sharifa Macario Consulting Unavailable Wendy Sands Consulting Unavailable Swapnil Silva Consulting Unavailable Castillo Kali Consulting Unavailable Cam Botello Consulting Unavailable Yvan Rahman Referring Unavailable Yvan Rahman Primary Care Unavailable Fran De Leon Attending Unavailable Lui Rose Consulting Unavailable Case Paredes Attending Unavailable Yadira Pruett Referring Unavailable Chau Grimes Consulting Unavailable Huan Merrill Consulting Unavailable Case Paredes Consulting Unavailable Brian Gallegos Consulting Unavailable Filiberto Everett Consulting Unavailable Harjit Schwartz Consulting Unavailable Alissa Levy Consulting UnavailKaushik Oliver Consulting Unavailable Chang Kiser Consulting Unavailable Jesus Zamudio Consulting Unavailable Yamila Cantrell Consulting Unavailable Candis Basurto Consulting Unavailable ResendezKeira bowen Consulting Unavailable Ford, Igo Consulting Unavailable Irukulla, Roberto Consulting Unavailable Guanakito, Mark Consulting Unavailable Dhesi, Jhony Consulting Unavailable Sharifa Macario Consulting Unavailable Shavon Soletiah Consulting Unavailable Ricardo, Swapnil Consulting Unavailable Castillo, Kali Consulting Unavailable Cam Botello Consulting Unavailable Allergies Allergy Classification Reported Allergen(s) Allergy Type Date of Onset Reaction(s) Facility Penicillins (antibiotic) (1 source) Penicillins Drug Allergy 7 Unknown [facility] Work Phone: (20 sources) Penicillins; Translations: [PENICILLINS] Propensity to adverse reactions to drug 7 Unknown [facility] Work Phone: (3 sources) Penicillins Allergy to substance 5 [facility] (20 sources) Penicillins Propensity to adverse reactions to drug 7 Unknown [facility] Work Phone: (1 source) Penicillins Drug allergy (disorder) 5 [facility] Repository Medications Current Medications Medication Drug Class(es) Dates Sig (Normalized) Sig (Original) [id number] 200 actuat albuterol 0.09 mg/actuat metered dose inhaler (8 sources) beta2-Adrenergic Agonist Start: 11-25-2024 take 2 puff(s) by inhalation every four hours as needed albuterol HFA (PROVENTIL HFA, VENTOLIN HFA) 90 mcg/actuation inhaler Inhale 2 puffs as instructed every 4 hours as needed. 1 each 5 11/25/2024 Active aspirin 81 mg delayed release oral tablet (20 sources) Platelet Aggregation Inhibitor, Nonsteroidal Anti-inflammatory Drug Start: 08-19-2024 take 1 tablet by mouth once daily Aspirin (Adult Aspirin Regimen) 81 mg tablet,delayed release (DR/EC) Active 81 mg PO DAILY August 19, 2024 12:00am [facility] Start: 05-27-2006 ASPIRIN 81 MG TAB Take one(1) tablet daily. 0 05/27/2006 Active Comment on above: Take one(1) tablet d aily. atropine sulfate 0.025 mg / diphenoxylate hydrochloride 2.5 mg oral tablet (20 sources) Anticholinergic, Cholinergic Muscarinic Antagonist, Antidiarrheal Start: 07-15-19 End: 04-14-20 take 1 tablet by mouth every twelve hours as needed for diarrhea and diarrhea diphenoxylate-atrop ine (LOMOTIL) 2.5-0.025 mg per tablet Indications: Diarrhea, unspecified type Take 1 tablet by mouth two times a day as needed for diarrhea for up to 180 days. 180 tablet 1 10/16/2024 04/14/2025 Active Start: 09-24-2022 End: 07-13-2023 take 1 tablet by mouth every twelve hours as needed for diarrhea and diarrhea diphenoxylate-atropine (LOMOTIL) 2.5-0.025 mg per tablet Indications: Diarrhea, unspecified type Take 1 tablet by mouth twice daily as needed for diarrhea for up to 180 days. 180 tablet 1 09/24/2022 07/13/2023 Discontinued Start: 01-25-2021 End: 05-14-2022 take 1 tablet by mouth every twelve hours as needed for diarrhea and diarrhea diphenoxylate-atropine (LOMOTIL) 2.5-0.025 mg per tablet Indications: Diarrhea, unspecified type Take 1 tablet by mouth twice daily as needed for diarrhea for up to 180 days. 180 tablet 1 01/25/2021 11/14/2021 Discontinued Comment on above: Take 1 tablet by [place] twice daily as needed for diarrhea for up to 180 days. Take 1 tablet by [facility] two times a day as needed for diarrhea for up to 180 days. azithromycin 250 mg oral tablet (1 source) Macrolide Antimicrobial Start: End: take 2 tablets by mouth once daily azithromycin (ZITHROMAX) 250 mg tablet Indications: Campylobacter diarrhea Take 2 tablets by mouth once daily for 3 days. 6 tablet 0 04/11/2023 04/14/2023 Active Comment on above: Take 2 tablets by [facility] once daily for 3 days. cholecalciferol 0.05 mg oral capsule (20 sources) Vitamin D Start: take 1 capsule by mouth once daily Cholecalciferol (Vitamin D3) 50 mcg (2,000 unit) capsule Active 50 ug PO DAILY August 19, 2024 12:00am vitamin Cholecalciferol, Vitamin D3, 50 mcg (2,000 unit) cap Take by mouth once daily. Active Comment on above: Take by mouth once d aily. 2 ml dupilumab 150 mg/ml auto-injector (20 sources) Interleukin-4 Receptor alpha Antagonist Start: 12-10-2024 Dupilumab (Dupixent Pen) 300 mg/2 mL pen injector Active 300 mg SC every 3 weeks December 10, 2024 12:00am Start: 02-08-2022 inject 300 mg by sub cutaneous injection once DUPIXENT PEN 300 mg/2 mL pen Inject 300 mg subcutaneously every [address] Evans Sommer 02/08/2022 Active Comment on above: Inject 300 mg subcut aneously every [address] Evans Sommer glimepiride 2 mg oral tablet (20 sources) Sulfonylurea Start: 12-08-19 take 1 tablet by mouth twice daily at mealtime glimepiride (AMARYL) 2 mg tablet Take 1 tablet by mouth two times a day with meals. 180 tablet 1 12/07/2024 Active Start: 10-27-2020 End: 08-02-2021 take 1 tablet by mouth once daily at breakfast glimepiride (AMARYL) 2 mg tablet Take 1 tablet by mouth daily with breakfast. 90 tablet 1 10/27/2020 08/02/2021 Discontinued Start: 07-22-2013 End: 12-04-2024 take 1 tablet by mouth twice daily at mealtime glimepiride (AMARYL) 2 mg tablet Take 1 tablet by mouth two times a day with meals. 180 tablet 1 12/07/2024 Active Comment on above: Take 1 tablet by flore[place] th twice daily with meals. Take 1 tablet by flore[place] th two times a day with meals. levothyroxine sodium 0.175 mg oral tablet (20 sources) l-Thyroxine Start: 12-07-2024 End: 01-20-2025 levothyroxine (SYNTHROID) 175 mcg tablet Indications: Primary thyroid papillary carcinoma (HCC) Take on tablet daily Mon-Sat and 1.5 on Sun 114 tablet 1 01/20/2025 Active Start: 08-23-2024 End: 12-10-2024 take 1 tablet by mouth once daily Levothyroxine 150 mcg Tablet Discontinued 150 ug PO DAILY August 23, 2024 12:00am December 10, 2024 10:25am Start: 07-15-2023 End: 12-04-2024 take 1 tablet by mouth once daily Levothyroxine (Synthroid) 175 mcg tablet Discontinued 175 ug PO DAILY August 19, 2024 12:00am August 23, 2024 12:20pm Start: 06-19-2021 End: 07-13-2023 take 1 tablet by mouth once daily levothyroxine (SYNTHROID) 175 mcg tablet Indications: Primary thyroid papillary carcinoma (HCC) Take 1 tablet by mouth once daily. 90 tablet 1 06/19/2021 01/09/2022 Discontinued Comment on above: Take 1 tablet by florencio once daily. Take 1 tablet by flore[place]io once daily. and two on Saturday losartan potassium 100 mg oral tablet (20 sources) Angiotensin 2 Receptor Kem Start: 12-07-2024 take 1 tablet by mouth once daily losartan (COZAAR) 100 mg tablet Take 1 tablet by mouth once daily. 90 tablet 1 12/07/2024 Active Start: 09-25-2022 End: 12-04-2024 take 1 tablet by mouth once daily losartan (COZAAR) 100 mg tablet Take 1 tablet by mouth once daily. 90 tablet 1 12/07/2024 Active Start: 06-06-2021 End: 09-22-2022 take 1 tablet by mouth once daily losartan (COZAAR) 100 mg tablet Take 1 tablet by mouth once daily. 90 tablet 1 06/06/2021 12/18/2021 Discontinued Comment on above: Take 1 tablet by florencio th once daily. magnesium glycinate 100 mg oral tablet (14 sources) Start: 12-23-2024 Magnesium Glycinate 100 mg tablet Active 200 mg PO daily December 23, 2024 10:26am Start: 12-10-2024 End: 12-23-2024 Magnesium Glycinate 100 mg t ablet Discontinued 150 mg PO daily December 10, 2024 12:00am December 23, 2024 10:27am Start: 09-02-2024 End: 11-04-2024 take 1.5 tablets by mouth once daily Magnesium Glycinate 100 mg tab Take 1.5 tablets by mouth once daily. 09/02/2024 11/04/2024 Discontinued magnesium oxide 200 mg magnesium chew (11 sources) Start: 11-04-2024 take 200 mg by mouth twice daily magnesium oxide 200 mg magnesium chew Take 200 mg by mouth two times a day. 11/04/2024 Active osmotic 24 hr metFORMIN hydrochloride 1000 mg extended release oral tablet (20 sources) Biguanide Start: 12-10-2024 Metformin 500 mg tablet extended release 24 hr Active 1000 mg PO daily December 10, 2024 12:00am Start: 12-07-2024 End: 01-20-2025 take 2 tablets by mouth once daily metFORMIN ER (GLUCOPHAGE XR) 500 mg 24 hr tablet TAKE 2 TABLETS BY MOUTH ONE TIME DAILY 12 HOURS APART FROM JANUMET 180 tablet 1 12/07/2024 01/20/2025 Discontinued (Clinical Decision) Start: 09-24-2022 End: 12-04-2024 take 2 tablets by mouth once daily metFORMIN ER (GLUCOPHAGE XR) 500 mg 24 hr tablet TAKE 2 TABLETS BY MOUTH ONE TIME DAILY 12 HOURS APART FROM JANUMET 180 tablet 1 05/28/2024 12/04/2024 Discontinued Start: 02-08-2021 End: 09-22-2022 take 2 tablets by mouth once daily metFORMIN ER (GLUCOPHAGE XR) 500 mg 24 hr tablet TAKE 2 TABLETS BY MOUTH ONE TIME DAILY 12 HOURS APART FROM JANUMET 180 tablet 1 02/02/2022 09/22/2022 Discontinued Start: 07-22-2013 End: 08-19-2024 take 1 tablet by mouth twice daily Metformin (Glucophage) 1,000 MG tablet Discontinued 1000 mg PO TWICE A DAY July 22, 2013 12:00am August 19, 2024 9:18am Comment on above: TAKE 2 TABLETS BY MO RUST ONE TIME DAILY 12 HOURS APART FROM JANUMET 24 hr metFORMIN hydrochloride 1000 mg / SITagliptin 100 mg extended release oral tablet (20 sources) Biguanide, Dipeptidyl Peptidase 4 Inhibitor Start: 12-07-2024 take 1 tablet by mouth once daily SITagliptin-metF ORMIN (JANUMET XR) 100-1,000 mg TM24 Take 1 tablet by mouth once daily. 90 tablet 2 12/07/2024 Active Start: 08-19-2024 take 100-1000 tablet s by mouth every twenty-four hours Sitagliptin Phos-Metformin [Sitagliptin Phos 100 Mg-Metformin Er 1,000 Mg Tablet,Extend Rel 24h Mp] (Sitagliptin Phos 100 Mg-Metformin Er 1,000 Mg ) 100-1,000 mg tablet, ER multiphase 24 hr Active 1 {tbl} PO DAILY August 19, 2024 12:00am Start: 09-25-2022 End: 12-04-2024 take 1 tablet by mouth once daily SITagliptin-metFORMIN (JANUMET XR) 100-1,000 mg TM24 Take 1 tablet by mouth once daily. 90 tablet 2 12/07/2024 Active Start: 03-29-2021 End: 09-22-2022 take 1 tablet by mouth once daily SITagliptin-metFORMIN (JANUMET XR) 100-1,000 mg TM24 Take 1 tablet by mouth once daily. 90 tablet 1 03/29/2021 11/14/2021 Discontinued Comment on above: Take 1 tablet by [facility] once daily. 24 hr metoprolol succinate 25 mg extended release oral tablet (5 sources) beta-Adrenergic Kem Start: 12-23-2024 take 1 tablet by mouth every hour metoprolol succinate ER (TOPROL XL) 25 mg 24 hr tablet Take 1 tablet by mouth once daily. Per [facility]. 12/23/2024 Active omeprazole 20 mg delayed release oral capsule (20 sources) Proton Pump Inhibitor Start: 02-05-2023 End: 09-24-2024 take 1 capsule by mouth once daily omeprazole (PRILOSEC) 20 mg capsule Take 1 capsule by mouth once daily. 90 capsule 3 09/24/2024 Active Start: 05-31-2021 End: 08-09-2022 take 1 capsule by mouth once daily omeprazole (PRILOSEC) 20 mg capsule Take 1 capsule by mouth once daily. 90 capsule 1 05/31/2021 11/23/2021 Discontinued Start: 07-22-2013 End: 08-19-2024 take 1 capsule by mouth once daily Omeprazole (Prilosec) 40 MG capsule Discontinued 40 mg PO DAILY July 22, 2013 12:00am August 19, 2024 9:18am Comment on above: Take 1 capsule by mo [facility] once daily. TAKE 1 CAPSULE DAILY pioglitazone 30 mg oral tablet (20 sources) Peroxisome Proliferator Receptor alpha Agonist, Peroxisome Proliferator Receptor gamma Agonist, Thiazolidinedione Start: End: take 1 tablet by mouth once daily pioglitazone (ACTOS) 30 mg tablet Take 1 tablet by mouth once daily. 90 tablet 1 01/20/2025 Active pravastatin sodium 40 mg oral tablet (20 sources) HMG-CoA Reductase Inhibitor Start: 023 End: take 1 tablet by mouth once daily at bedtime pravastatin (PRAVACHOL) 40 mg tablet Take 1 tablet by mouth daily at bedtime. 90 tablet 1 12/31/2024 Active Start: 04-17-2021 End: 12-01-2022 take 1 tablet by mouth once daily at bedtime pravastatin (PRAVACHOL) 40 mg tablet Take 1 tablet by mouth daily at bedtime. 90 tablet 1 04/17/2021 11/14/2021 Discontinued Comment on above: Take 1 tablet by [facility] daily at bedtime. tamsulosin hydrochloride 0.4 mg oral capsule (20 sources) alpha-Adrenergic Kem Start: End: take 1 capsule by mouth twice daily tamsulosin (FLOMAX) 0.4 mg Take 1 capsule by mouth two times a day. 180 capsule 3 12/31/2024 Active Start: 06-06-2021 End: 08-09-2022 take 1 capsule by mouth twice daily tamsulosin (FLOMAX) 0.4 mg Take 1 capsule by mouth twice daily. 180 capsule 1 06/06/2021 02/02/2022 Discontinued Comment on above: Take 1 capsule by [facility] twice daily. Completed/Discontinued Medications Medication Drug Class(es) Dates Sig (Normalized) Sig (Original) acetaminophen 325 mg / oxyCODONE hydrochloride 5 mg oral tablet (3 sources) Opioid Agonist Start: 12-08-2014 End: 08-19-2024 Oxycodone-Acetamino phen 1 TABLET tablet Discontinued 1 {tbl} PO EVERY 4 HOURS NEEDED as needed for Pain 20 December 08, 2014 12:00am August 19, 2024 9:18am Ascorbic Acid (20 sources) Vitamin C End: 02-25-2023 ascorbic acid (VITAMIN C ORAL) Take by mouth. 02/25/2023 Discontinued End: 02-25-2023 ascorbic acid (VITAMIN C ORA L) Take by mouth. 0 02/25/2023 Discontinued ascorbic acid (V ITAMIN C ORAL) Take by mouth. 0 Active Comment on above: Take by mouth. benzonatate 200 mg oral capsule (20 sources) Non-narcotic Antitussive Start: End: take 1 capsule by mouth every eight hours as needed Benzonatate 200 mg capsule Take 1 capsule by mouth three times a day as needed. 45 capsule 1 09/02/2024 01/20/2025 Discontinued (Course of therapy completed) Start: 05-23-2023 End: 06-22-2024 take 1 capsule by mouth every eight hours as needed Benzonatate 200 mg capsule Take 1 capsule by mouth three times a day as needed. 45 capsule 1 05/23/2023 06/22/2024 Discontinued (Course of therapy completed) Comment on above: Take 1 capsule by [facility] three times a day as needed. valsartan 40 mg oral tablet (3 sources) Angiotensin 2 Receptor Kem Start: 07-22-2013 End: 08-19-2024 take 1 mg by mouth once daily Valsartan (Diovan) 40 MG tablet Discontinued mg PO DAILY July 22, 2013 12:00am August 19, 2024 9:18am Zinc (20 sources) End: 02-25-2023 ZINC ORAL Take 50 mg by mouth. 02/25/2023 Discontinued End: 02-25-2023 ZINC ORAL Take 50 mg by mout h. 0 02/25/2023 Discontinued ZINC ORAL Take 5 0 mg by mouth. 0 Active Comment on above: Take 50 mg by mouth. Problems Active Problems Problem Classification Problem Date Documented Da te Episodic/Chronic Cancer of thyroid (20 sources) Papillary thyroid carcinoma; Translations: [Malignant neoplasm of thyroid gland] Onset: 4 06-12-2017 Chronic Cardiac dysrhythmias (20 sources) Supraventricular tachycardia; Translations: [Ventricular tachycardia] Onset: 5 11-11-2024 Chronic Cardiac dysrhythmias (20 sources) Palpitations; Translations: [Palpitations] Onset: 4 Resolved: 5 11-23-2015 Episodic Chronic obstructive pulmonary disease and bronchiectasis (4 sources) Obstruction of lower respiratory tract; Translations: [Chronic obstructive pulmonary disease, unspecified] Onset: 5 11-25-2024 Chronic Complications of surgical procedures or medical care (20 sources) Postoperative hypothyroidism; Translations: [Postprocedural hypothyroidism] Onset: 1 01-20-2021 Chronic Diabetes mellitus without complication (20 sources) Type 2 diabetes mellitus without complication; Translations: [Type 2 diabetes mellitus without complications] Onset: 5 08-22-2016 Chronic Disorders of lipid metabolism (20 sources) Mixed hyperlipidemia; Translations: [Mixed hyperlipidemia] Onset: 5 03-05-2015 Chronic Diverticulosis and diverticulitis (20 sources) Diverticulosis of large intestine; Translations: [Diverticulosis of large intestine without perforation or abscess without bleeding] Onset: 7 06-25-2018 Chronic Esophageal disorders (20 sources) Gastroesophageal reflux disease without esophagitis; Translations: [Gastro-esophageal reflux disease without esophagitis] Onset: 5 03-05-2015 Chronic Essential hypertension (20 sources) Essential hypertension; Translations: [Essential (primary) hypertension] Onset: 5 03-05-2015 Chronic Fever of unknown origin (2 sources) Fever; Translations: [Fever, unspecified] 04-08-2023 Episodic Hyperplasia of prostate (20 sources) Benign prostatic hyperplasia; Translations: [Benign prostatic hyperplasia with lower urinary tract symptoms] Onset: 5 05-08-2021 Chronic Immunizations and screening for infectious disease (1 source) Suspected disease caused by 2019-nCoV; Translations: [Suspected COVID-19 virus infection] 04-08-2023 Episodic Occlusion or stenosis of precerebral arteries (20 sources) Bilateral stenosis of carotid arteries; Translations: [Occlusion and stenosis of bilateral carotid arteries] Onset: 3 Chronic Other aftercare (20 sources) Patient encounter status; Translations: [Other dry wall applicator (current) drug therapy] Onset: 1 07-05-2020 Episodic Other aftercare (2 sources) Post-discharge follow-up; Translations: [Encounter for follow-up examination after completed treatment for conditions other than malignant neoplasm] 08-28-2024 Episodic Other ear and sense organ disorders (20 sources) Hearing loss; Translations: [Unspecified hearing loss, unspecified ear] Onset: 7 06-25-2018 Chronic Other gastrointestinal disorders (5 sources) Diarrhea; Translations: [Diarrhea, unspecified] Episodic Other hereditary and degenerative nervous system conditions (2 sources) Resting tremor; Translations: [Other specified forms of tremor] 07-16-2024 Chronic Other hereditary and degenerative nervous system conditions (1 source) Other specified forms of tremor; Translations: [Resting tremor] Onset: 5 Chronic Other infections; including parasitic (1 source) Sequelae of other specified infectious and parasitic diseases; Translations: [Post viral debility] Onset: 5 Chronic Other lower respiratory disease (4 sources) Cough; Translations: [Acute cough] 08-28-2024 Episodic Other lower respiratory disease (5 sources) Dyspnea on exertion; Translations: [Other forms of dyspnea] 10-06-2024 Episodic Other lower respiratory disease (2 sources) Obstruction of lower respiratory tract 11-25-2024 Episodic Other lower respiratory disease (2 sources) Shortness of breath; Translations: [Shortness of breath] Onset: 5 Episodic Other nervous system disorders (1 source) Neuropathy; Translations: [Polyneuropathy, unspecified] 08-05-2024 Chronic Other nervous system disorders (1 source) Polyneuropathy, unspecified; Translations: [Neuropathy] Onset: 5 Chronic Other nervous system disorders (2 sources) Bradykinesia; Translations: [Other abnormal involuntary movements] 07-16-2024 Episodic Other nervous system disorders (2 sources) Paresthesia; Translations: [Paresthesia of skin] 08-05-2024 Episodic Other nervous system disorders (1 source) Shuffling gait; Translations: [Other abnormalities of gait and mobility] 08-05-2024 Episodic Other nutritional; endocrine; and metabolic disorders (20 sources) Obesity; Translations: [Obesity, unspecified] Onset: 7 09-01-2013 Chronic Other nutritional; endocrine; and metabolic disorders (20 sources) Hypomagnesemia; Translations: [Hypomagnesemia] Onset: 0 01-20-2021 Chronic Other nutritional; endocrine; and metabolic disorders (1 source) Hypomagnesemia; Translations: [Hypomagnesemia] Onset: 1 Chronic Other screening for suspected conditions (not mental disorders or infectious disease) (3 sources) Abnormal findings on diagnostic imaging of other specified body structures; Translations: [Nonspecific (abnormal) findings on radiological and other examination of other intrathoracic organs] Onset: 5 09-02-2024 Chronic Other skin disorders (1 source) Blisters of multiple sites; Translations: [Other skin changes] 02-25-2023 Episodic Other upper respiratory infections (3 sources) Upper respiratory infection; Translations: [Acute upper respiratory infection, unspecified] 08-25-2013 Episodic Residual codes; unclassified (1 source) Viral syndrome; Translations: [Other general symptoms and signs] 04-08-2023 Episodic Residual codes; unclassified (5 sources) Altered mental status; Translations: [Altered mental status, unspecified] 08-19-2024 Episodic Unclassified (1 source) V-tach (HCC); Translations: [V-tach (HCC)] Onset: 5 Unclassified (1 source) Acute cough; Translations: [Acute cough] Onset: 5 Past or Other Problems Problem Classification Problem Date Documented Date Episodic/Chronic Administrative/social admission (20 sources) Advance directive discussed with patient; Translations: [Other specified counseling] Onset: 08-02-2021 08-02-2021 Episodic Allergic reactions (20 sources) Contact dermatitis; Translations: [Unspecified contact dermatitis, unspecified cause] Onset: 02-11-2007 09-01-2013 Episodic Calculus of urinary tract (20 sources) History of calculus of kidney; Translations: [Personal history of urinary calculi] Onset: 02-11-2007 Resolved: 02-11-2007 03-16-2015 Episodic Cancer of bronchus; lung (20 sources) Malignant neoplasm of upper lobe of lung ; Translations: [Malignant neoplasm of upper lobe, unspecified bronchus or lung] Onset: 03-16-2015 Resolved: 01-20-2021 05-08-2021 Chronic Cancer of bronchus; lung (20 sources) History of malignant neoplasm of thoracic cavity structure; Translations: [Personal history of other malignant neoplasm of bronchus and lung] Onset: 01-20-2021 01-20-2021 Episodic Diabetes mellitus with complications (20 sources) Type 2 diabetes mellitus; Translations: [Type II or unspecified type diabetes mellitus without mention of complication, uncontrolled] Onset: 02-11-2007 Resolved: 03-03-2007 03-03-2007 Chronic Diabetes mellitus without complication (6 sources) Hyperglycemia; Translations: [Hyperglycemia, unspecified] Onset: 08-25-2024 08-19-2024 Episodic Genitourinary symptoms and ill-defined conditions (7 sources) Proteinuria; Translations: [Proteinuria, unspecified] Onset: 08-25-2024 04-08-2023 Episodic Intestinal infection (20 sources) Enteric campylobacteriosis; Translations: [Campylobacter enteritis] Onset: 08-28-2024 Resolved: 01-20-2025 04-11-2023 Episodic Malaise and fatigue (20 sources) Asthenia; Translations: [Weakness] Onset: 09-17-2024 Resolved: 01-20-2025 09-02-2024 Episodic Other aftercare (1 source) Other 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 wall applicator (current) drug therapy; Translations: [Medication management] Onset: 07-05-2020 Episodic Other aftercare (1 source) Encounter for follow-up examination after completed treatment for conditions other than malignant neoplasm; Translations: [Hospital discharge follow-up] Onset: 08-28-2024 Episodic Other lower respiratory disease (1 source) Other forms of dyspnea; Translations: [NAIK (dyspnea on exertion)] Onset: 10-06-2024 Episodic Other male genital disorders (20 sources) Disorder of prostate; Translations: [Disorder of prostate, unspecified] Onset: 08-27-2014 08-27-2014 Episodic Other nervous system disorders (1 source) Paresthesia of skin; Translations: [Paresthesia of skin] Onset: 08-05-2024 Episodic Other nervous system disorders (1 source) Other abnormalities of gait and mobility; Translations: [Shuffling gait] Onset: 08-05-2024 Episodic Other nervous system disorders (1 source) Other abnormal involuntary movements; Translations: [Bradykinesia] Onset: 07-16-2024 Episodic Other non-traumatic joint disorders (20 sources) Chronic pain of left upper limb; Translations: [Pain in left shoulder] Onset: 02-25-2023 02-25-2023 Episodic Other screening for suspected conditions (not mental disorders or infectious disease) (20 sources) Elevated C-reactive protein; Translations: [Elevated C-reactive protein (CRP)] Onset: 08-27-2007 09-01-2013 Episodic Other skin disorders (20 sources) Actinic keratosis; Translations: [Actinic keratosis] Onset: 03-06-2007 09-01-2013 Episodic Other upper respiratory disease (20 sources) Deviated nasal septum; Translations: [Deviated nasal septum] Onset: 06-15-2009 11-23-2015 Episodic Pneumonia (except that caused by tuberculosis or sexually transmitted disease) (5 sources) Pneumonia; Translations: [Pneumonia, unspecified organism] Onset: 08-25-2024 08-19-2024 Episodic Residual codes; unclassified (20 sources) Family history of ischemic heart disease; Translations: [Family history of ischemic heart disease and other diseases of the circulatory system] Onset: 02-11-2007 11-23-2015 Episodic Residual codes; unclassified (20 sources) Active living will ; Translations: [Other specified health status] Onset: 08-02-2021 08-02-2021 Episodic Residual codes; unclassified (1 source) Altered mental status, unspecified; Translations: [Altered mental status, unspecified] Onset: 08-25-2024 Episodic Screening and history of mental health and substance abuse codes (2 sources) Encounter for screening for depression; Translations: [Encounter for screening examination for other mental health and behavioral disorders] Onset: 07-16-2024 Episodic Septicemia (except in labor) (20 sources) Sepsis; Translations: [Sepsis, unspecified organism] Onset: 08-25-2024 Resolved: 01-20-2025 08-19-2024 Episodic Spondylosis; intervertebral disc disorders; other back problems (20 sources) Backache; Translations: [Dorsalgia, unspecified] Onset: 03-16-2015 11-23-2015 Episodic Viral infection (20 sources) Postviral infection debility; Translations: [Other malaise] Onset: 09-17-2024 Resolved: 01-20-2025 09-02-2024 Episodic Results Test Name Value Interpretation Reference Range Facility CNOVon 01-20-2025 CNOV Office Visit (FAMPWS ) -- ADRIELSANTOS JORGENSEN ([id number]) 1940 M Date Time Provider Department 01/20/25 11:00 AM YVAN RAHMANPWS During your visit today, we recorded the following information about you: Pulse Respiration Blood pressure Weight 66/minute 18/minute 124/66 87.5 kg Yvan Rahman MD 01/21/2025 10:22 PM Signed Chief Complaint Patient presents with: F/U 6 Month HPI Santos Sheth Adriel is a 84 year old male who presents here today for a routine follow up. Follows with [facility], Dr. De Leon. Was started on Toprol XL 25 mg once daily due to elevated HR. Is scheduled to have a Stress Test next week. Patient with hx of DM2, HTN, hyperlipidemia, low magnesium, GERD, BPH, post surgical hypothyroidism, papillary thyroid cancer s/p thyroidectomy and those as below. Huy was recently seen by a online trader, who did not recommend a daily inhaler due to the absence of symptoms, but suggested albuterol as needed, which has not been used. He also saw a city controller on 12/23, who ordered a stress test scheduled for next Saturday and prescribed metoprolol. Huy denies experiencing lightheadedness, dizziness, or palpitations since starting metoprolol. He also denies any recent fevers, cervical lymphadenopathy, wheezing, hemoptysis, chest pain, or lower extremity edema. He reports occasional diarrhea but denies hematochezia, heartburn, or changes in heat or cold tolerance. He has not experienced symptoms of hypoglycemia, frequent headaches, seizures, or tremors. Huy reports feeling weak and unable to walk long distances, but notes improvement since his hospitalization for norovirus. He has not received a flu shot this year due to a previous adverse reaction and is hesitant about the COVID-19 vaccine. Recent lab results show an A1c of 5.7, a significant improvement attributed to the addition of Actos and Huy's efforts. Huy is currently taking 2 metformin tablets and Janumet daily. His thyroid function tests show a TSH level below 0.1, despite a recent dosage adjustment of levothyroxine to 175 mcg daily and 2 tablets on Saturday. He is also taking magnesium supplements, with recent levels within the normal range. Past medical history, appointments, medications, allergies reviewed. Previous Medical History PAST MEDICAL HISTORY Diagnosis Date Abnormal CT of liver 07/07/2018 2017: suspected cirrhosis. Saw Dr. Rocha [facility] who felt this was not cirrhosis. Actinic keratosis 03/06/2007 Benign non-nodular prostatic hyperplasia with lower urinary tract symptoms 03/16/2015 History of BPH. takes flomax at home. Voiding without difficulty Plan; - resume flomax 09/29/2013 - voiding Calculus of kidney 02/11/2007 Chronic left shoulder pain 02/25/2023 Contact dermatitis and other eczema, due to unspecified cause 02/11/2007 Bilateral metacarpals, elbow - mild Controlled type 2 diabetes mellitus without complication, without long-term current use of insulin ([facility]) 03/05/2015 Deviated nasal septum 06/15/2009 Diabetic eye exam (HCC) 08/27/2014 Last done: 02/13/18 No Retinopathy Diverticulosis of large intestine 02/11/2007 Finding on Colonoscopy 2000 Elevated C-reactive protein (CRP) 08/27/2007 Elevated prostate specific antigen (PSA) 03/16/2015 Essential hypertension 03/05/2015 Family history of ischemic heart disease 02/11/2007 Father age 54 [place] Gastroesophageal reflux disease without esophagitis 03/05/2015 History of kidney stones 05/19/2014 Hypomagnesemia 06/30/2019 Internal hemorrhoids without mention of complication Living will in place 08/02/2021 DPA: (Lisa) Lung cancer, upper lobe (HCC) 08/21/13: Right. NSCLC. Neg EBUS staging of mediastinum. Malignant neoplasm of upper lobe of right lung (HCC) 03/16/[address] Maria: Adenocarcinoma Stage IB, Refused chemo. Malignant neoplasm of upper lobe of right lung (HCC) 03/16/2015 Dx 2014: Was Seeing Dr. Maria: Adenocarcinoma Stage IB, Refused chemo. Released (01/07/2019) Mixed hyperlipidemia 03/05/2015 Obstructive lung disease (HCC) 01/20/[address] Livia Paredes. OVERWEIGHT 03/06/2007 Palpitations 07/10/2013 Post-surgical hypothyroidism 01/20/2021 Primary thyroid papillary carcinoma (HCC) 10/09/2013 Goal to keep TSH between 0.1-0.5 and thyroglobulin less than 5 SVT (supraventricular tachycardia) ([facility]) 11/11/2024 Halter 10/2024 Unspecified hearing loss 02/11/2007 Dr. Carrion, [facility], Stapedectomy Upper back pain on left side 03/16/2015 V-tach (HCC) 11/11/2024 Holter 10/2024 VTE Prophylaxis 09/29/2013 The pt was on Lovenox 40mg SC daily and SCD for VTE prophylaxis. No signs or symptoms of DVT/PE. The patient is at High risk for VTE. Plan: - KATIE - Encourage continued ambulation . Previous Surgical History PAST SURGICAL HISTORY Procedure Laterality Date C (more content not included)... Normal [facility] HbA1c (Bld)on 01-02-2025 Average glucose Estimated from glycated hemoglobin (Bld) [Mass/Vol] 117 mg/dL Normal [facility] Comment on above: Order Comment: Ronnie israel Type: BLOOD SPECIMENOrdering Facility: [facility] Address: [address] [place] [address] Result Comment: eAG: (Estimated average glucose) is a calculated value from HgbA1c and is customer service representative of the average blood glucose level in the last 2-3 month period. Performed By: #### 5 5454-3 ####[facility] LABCLIA [id number] [place] [address] [place] HbA1c (Bld) [Mass fraction] 5.7 % High 4.3-5.6 [facility] Comment on above: Order Comment: Speci men Type: BLOOD SPECIMENOrdering Facility: [facility] Address: [address] [place] [address] Result Comment: Amer ican Diabetes Association guidelines indicate that patients with HgbA1c in the range 5.7-6.4% are at increased risk for development of diabetes, and intervention by lifestyle modification may be beneficial. HgbA1c greater or equal to 6.5% is considered diagnostic of diabetes. Performed By: #### 5 5454-3 ####[facility] LABCLIA [id number] [place] [address] [place] LIPID PANEL, NONFASTINGon Cholesterol [Mass/Vol] 90 mg/dL Normal <200 [facility] Comment on above: Order Comment: Speci men Type: BLOOD SPECIMENOrdering Facility: [facility] Address: [address] [place] [address] Result Comment: <200 mg/dL, Desirable 200-239 mg/dL, Borderline high >239 mg/dL, High Performed By: #### L IPNF, , 3016-3 ####[facility] LABCLIA [id number] [place] [id number] [place] HDL CHOLESTEROL, NF 35 mg/dL Low >39 [facility] Comment on above: Order Comment: Speci men Type: BLOOD SPECIMENOrdering Facility: [facility] Address: [address] [place] [address] Result Comment: 40-5 9 mg/dL, Acceptable >59 mg/dL, High: Negative risk factor for coronary heart disease <40 mg/dL, Low: Positive risk factor for coronary heart disease Performed By: #### L IPNF, , 3016-3 ####[facility] LABCLIA [id number] [place] [id number] [place] LDL CHOLESTEROL CALCULATED, NF 37 mg/dL Normal <100 [facility] Comment on above: Order Comment: Speci men Type: BLOOD SPECIMENOrdering Facility: [facility] Address: [address] [place] [address] Result Comment: <100 mg/dL, Optimal 100-129 mg/dL, Near optimal/above optimal 130-159 mg/dL, Borderline high 160-189 mg/dL, High >189 mg/dL, Very high Secondary prevention optimal LDL Cholesterol levels are recommended to be <70 mg/dL LDL cholesterol is calculated using the Oakes-NIH equation. Performed By: #### L ABIMBOLA, , 3015-3 ####[facility] LABCLIA [id number] [address] OF [facility] LDL/HDL RATIO, NF 1.06 mg/dL Normal <2.54 [facility] Comment on above: Order Comment: Ronnie israel Type: BLOOD SPECIMENOrdering Facility: [facility] Address: [address] [place] [address] Result Comment: Refe rence: 1. National Cholesterol Education Program ATP III Guideline At-A-Glance Quick Desk Reference: National Heart, Lung, and Blood [place]. National Institutes of Health. 2001: NIH Publication No. 01-3305. 2. An International Atherosclerosis Society position paper: global recommendations for the management of dyslipidemia: executive summary, Atherosclerosis. 2014: 232(2):410-413. Performed By: #### L ABIMBOLA, , 3015-07 ####[facility] LABIA [id number] [address] OF [facility] NON HDL CHOL, NF 55 mg/dL Normal <130 [facility] Comment on above: Order Comment: Ronnie israel Type: BLOOD SPECIMENOrdering Facility: [facility] Address: [address] [place] [address] Result Comment: <130 mg/dL, Optimal 130-159 mg/dL, Near optimal/above optimal 160-189 mg/dL, Borderline high 190-219 mg/dL, High >219 mg/dL, Very high Secondary prevention optimal non HDL Cholesterol levels are recommended to be <100 mg/dL Performed By: #### L ABIMBOLA, , 3015-3 ####[facility] LABCLIA [id number] [place] [address] [place] T CHOL/HDL RATIO NF 2.57 mg/dL Normal <5.10 [facility] Comment on above: Order Comment: Speci men Type: BLOOD SPECIMENOrdering Facility: [facility] Address: [address] [place] [address] Performed By: #### L IPNF, , 3 ####[facility] LABCLIA [id number] [place] [address] [place] TRIGLYCERIDES, NF 90 mg/dL Normal <150 [facility] Comment on above: Order Comment: Speci men Type: BLOOD SPECIMENOrdering Facility: [facility] Address: [address] [place] [address] Result Comment: <150 mg/dL, Normal 150-199 mg/dL, Borderline high 200-499 mg/dL, High >499 mg/dL, Very high Performed By: #### L IPNF, , 3 ####[facility] LABCLIA [id number] [place] [address] [place] VLDL CHOLESTEROL, NF 12 mg/dL Normal <30 [facility] Comment on above: Order Comment: Speci men Type: BLOOD SPECIMENOrdering Facility: [facility] Address: [address] [place] [address] Performed By: #### L IPNF, , 3 ####[facility] LABCLIA [id number] [place] [address] [place] Magnesium SerPl-mCncon 01-02 Magnesium [Mass/Vol] 1.7 mg/dL Normal 1.7-2.3 [facility] Comment on above: Order Comment: Speci men Type: BLOOD SPECIMENOrdering Facility: [facility] Address: [address] [place] [address] Performed By: #### L IPNF, , 3015-3 ####[facility] LABCLIA [id number] [place] [id number] [place] TSH SerPl-aCncon 01-02-2025 TSH Qn 0.059 m[IU]/L Low 0.270-4.200 [facility] Comment on above: Order Comment: Speci men Type: BLOOD SPECIMENOrdering Facility: [facility] Address: [address] [place] [address] Performed By: #### L IPNF, 65524-0, 3016-3 ####[facility] [id number] [place] [id number] [place] Cardiology Visit Reporton Cardiology Visit Report [facility] [place], [place] [address] OFFICE VISIT Date of Service: 12/23/24 MR#: [id number] Acct: [id number] Name: SANTOS MOREL Rep #: [id number] : 1940 Provider: Dr. Fran De Leon MD Age/Sex: 84/M Location: [facility] Status: Signed HPI HPI History of Present Illness Details: 84-year-old man with no previous cardiac history who was in the hospital earlier this year and was noted to have palpitations. This was during a viral illness. As part of his follow-up his remarked that he had never had a cardiac workup and an EKG was done which demonstrated sinus tachycardia with a right bundle branch block at a rate of 127 bpm. He subsequently went on to have an echocardiogram which demonstrated mild concentric hypertrophy otherwise normal and a Holter monitor for 14 days which did demonstrate 12 beats of an accelerated idioventricular rhythm at a rate of approximately 106 bpm which was asymptomatic. He has remained asymptomatic. He denies any dizziness or diaphoresis near syncope of syncope he does have mild shortness of breath. His physical exam is otherwise unremarkable. Intake Vital Signs 08/21/24 09:28 12/23/24 10:18 Height 5 ft 11 in 5 ft 11 in Weight: 188 lb BMI 26.2 BP 126/72 H Blood Pressure Location Lt brachial Position Sitting Respiration 16 Pulse 90 Pulse Source Monitor Intake Visit Reasons: TACHYCARDIA Foreign Collection Clerk Required: No Accompanied by: Significant Other Is patient in pain?: No Allergies Penicillins Allergy (Verified 12/23/24 10:24) Swelling Medications ???Medication ???Instructions ???Recorded ???Confirmed ???Type glimepiride 2 mg tablet 2 mg PO BID diabetes 07/22/1312/11 History aspirin 81 mg tablet,delayed 81 mg PO DAILY heart health 12/23/24 History release (Adult Aspirin Regimen) cholecalciferol (vitamin D3) 50 50 mcg PO DAILY vitamin 08/19/24 0 12/23/24 History mcg (2,000 unit) capsule losartan 100 mg tablet 100 mg PO DAILY blood pressure 02/0412/23/24 History omeprazole 20 mg capsule,delayed 20 mg PO DAILY reflux 08/19/24 History release pioglitazone 30 mg tablet 30 mg PO DAILY diabetes 08/19/24 0 12/23/24 History pravastatin 40 mg tablet 40 mg PO DAILY cholesterol 5 12/23/24 History sitagliptin phos 100 mg-metformin 1 tab PO DAILY diabetes 08/19/24 12/23/24 History ER 1,000 mg tablet,extend rel 24h mp (Janumet XR) tamsulosin 0.4 mg capsule 0.4 mg PO BID prostate 08/19/24 History dupilumab 300 mg/2 mL subcutaneous 300 mg subcut Q3W 12/10/2412/23 History pen injector (Dupixent) levothyroxine 175 mcg tablet 175 mcg PO 12/10/24 12/23/24 Histo ry (Synthroid) metformin 500 mg tablet,extended 1,000 mg PO QDAY 12/10/24 12/23/24 History release 24 hr magnesium glycinate 100 mg (as 200 mg PO QDAY 12/23/24 12/23/24 H istory glycinate) tablet metoprolol succinate 25 mg 25 mg PO QDAY #90 tabs 12/23/24 Rx tablet,extended release 24 hr (Toprol XL) Have you fallen in the past year?: Yes PFSH Medical History Primary thyroid papillary carcinoma Palpitations Mixed hyperlipidemia GERD (gastroesophageal reflux disease) BPH (benign prostatic hyperplasia) Abnormal CT of liver SOB (shortness of breath) on exertion Tachycardia Kidney stones HTN (hypertension) Lung cancer Diabetes Surgical History S/P lobectomy of lung Family History Mother Breast cancer Father Myocardial infarction Sister Diabetes Heart disease Breast cancer Cancer Social History Smoking Status: Never smoker alcohol intake: never substance use type: does not use ROS Const Const: Positive for fatigue; Negative for weakness, headache(s), daytime sleepiness or difficulty sleeping ENT ENT: Negative for headache(s), dizziness or Nosebleed/epistaxis Cardio Chest Pain: No Palpitations: No Edema: None Resp Respiratory: Positive for SOB with activity; Negative for SOB at rest, SOB orthopnea SOB lying down or Cough GI GI: Negative nausea, vomiting or heartburn Neuro Neuro: Negative for dizziness, lightheadedness, near syncope, headache(s) or weakness Endo Endo: Positive for fatigue Cardiology Exam Const Appearance: cooperative, healthy appearing, no acute distress, well developed and well groomed Nutritional Appearance: average body habitus and well nourished Orientation: alert, awake and oriented x3 Head Head: normal to inspection, normocephalic and atraumatic Ears: hearing grossly nor (more content not included)... Normal [facility] 11-25-2024 [facility] Office Visit (PULMWS ) -- SANTOS MOREL ([id number]) 1940 M Date Time Provider Department 11/25/24 1:30 PM LIVIA PAREDES [place] During your visit today, we recorded the following information about you: Pulse Respiration Blood pressure Weight 60/minute 15/minute 112/60 84.8 kg Livia Paredes MD 11/25/2024 3:02 PM Signed . Respiratory [place] Note Patient name: Santos Morel PCP: Yvan Rahman MD Referring Physician: same Recording using [employer] software for draft documentation of the visit was discussed with the patient/authorized customer service representative; all questions welcomed and answered. Patient/authorized customer service representative agreed to proceed CC: abnormal breathing test HPI: Santos Morel 84 year old male never smoker with PMH significant for eczema on Dupixent, DM, HTN, GERD, adenocarcinoma of lung 2013 s/p RUL lobectomy, thyroid cancer with incidental note of positive papillary thyroid cancer on cervical lymph node biopsy performed at the time of his lung surgery, last seen by Dr. Zaman in 2013. Huy reports experiencing dyspnea when walking long distances, such as the 400 feet to his mailbox, but denies dyspnea when climbing stairs or at rest. He denies chronic cough, wheezing, or a history of recurrent bronchitis. He also denies a history of asthma or other respiratory issues during childhood. He is not currently using any inhalers. Huy reports first experiencing dyspnea after hospitalization in August for Reynolds virus. He was hypoxemic during his hospital stay, with oxygen saturation levels in the 80s. He does not recall the hospitalization or being transported by EMS. He does not feel that his dyspnea is limiting but his mention that she witnessed Huy puffing after returning from trips to the mailbox which prompted the order for PFT. DATA: PFT 10/2024: Moderate obstruction but at the upper limit of moderate with improvement in small airways post bronchodilator PFT 2013 from [facility]: Labs: FINAL DIAGNOSIS 1. Cervical nodule, biopsy (A) - Papillary thyroid carcinoma. See comment. 2. Lymph nodes, 4R, 4L, #7, 2R, 2L, 10R, 11R, 9R, 4R, #7, excisions (B-F, H-L) - Benign reactive lymph nodes with anthracosis, negative for neoplasm. 3. Lung, right upper lobe, lobectomy (G) - Invasive adenocarcinoma, acinar-predominant (50%) with papillary (30%) and micropapillary (20%) patterns. - Six (6) peribronchial lymph nodes, negative for neoplasm. - See comment and synoptic report. Imaging / Diagnostic Studies: Reviewed last surveillance chest CT from 2019: Only pertinent for post surgical changes. DATE OF EXAM: Oct 06 2024 10:54AM WOX [id number] - XR CHEST 2V FRONTAL/LAT / CLINICAL HISTORY: Acute cough MQ: [id number] EXAM DATE/TIME: 10/06/2024 10:54 AM COMPARISON: 01/12/2020 and 08/28/2024 RESULT: Lines, tubes, and devices: None. Lungs and pleura: Stable postoperative appearance of the chest. Volume loss on the right. No persistent or developing acute abnormality. No pleural fluid or pneumothorax Cardiomediastinal silhouette: Normal cardiomediastinal silhouette. Bones and soft tissues: Unremarkable. Reviewed and unremarkable Chest CT 03/24/14: Chest CT 07/2013: PAST MEDICAL HISTORY Diagnosis Date Abnormal CT of liver 07/07/2018 2017: suspected cirrhosis. Saw Dr. Rocha [facility] who felt this was not cirrhosis. Actinic keratosis 03/06/2007 Benign non-nodular prostatic hyperplasia with lower urinary tract symptoms 03/16/2015 History of BPH. takes flomax at home. Voiding without difficulty Plan; - resume flomax 09/29/2013 - voiding Calculus of kidney 02/11/2007 Contact dermatitis and other eczema, due to unspecified cause 02/11/2007 Bilateral metacarpals, elbow - mild Controlled type 2 diabetes mellitus without complication, without long-term current use of insulin ([facility]) 03/05/2015 Deviated nasal septum 06/15/2009 Diabetic eye exam ([facility]) 08/27/2014 Last done: 02/13/18 No Retinopathy Diverticulosis of large intestine 02/11/2007 Finding on Colonoscopy 2000 Elevated C-reactive protein (CRP) 08/27/2007 Elevated prostate specific antigen (PSA) 03/16/2015 Essential hypertension 03/05/2015 Family history of ischemic heart disease 02/11/2007 Father age 54 [place] Gastroesophageal reflux disease without esophagitis 03/05/2015 History of kidney stones 05/19/2014 Hypomagnesemia 06/30/2019 Internal hemorrhoids without mention of complication Living will in place 08/02/2021 DPA: (Lisa) Lung cancer, upper lobe (HCC) 08/21/13: Right. NSCLC. Neg EBUS staging of mediastinum. Malignant neoplasm of upper lobe of right lung (HCC) 03/16/[address] Maria: Adenocarcinoma Stage IB, Refused chemo. Malignant neoplasm of upper lobe of right lung (HCC) 03/16/2015 Dx 2014: Was Seeing Dr. Engle (more content not included)... 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 Please review scanned document and advise. Marion Mondragon MA View External Cardiology - Camera Technician Holter Report [ID [id number]] Yvan Rahman MD 11/11/2024 4:15 PM Signed Let patient know his halter monitor shows several runs of rapid heart rate coming from above the lower chambers. This is called SVT: supra ventricular tachycardia. He also had several short runs of V-tach that can be dangerous. I would like for him to se a rhythm specialist called and Electrophysiological specialist in cardiology (EPS). Order placed. Marion Mondragon MA 11/11/2024 4:36 PM Signed Call to spouse and . Reviewed results with them and they are very hesitant on traveling and asking if PCP can advise on a name of a Provider, location. Would a normal Final Canoe Inspector be okay to see starting off. Pt has never seen Cardiology before, ever. Did notify pt that V-Tach is dangerous and can lead to cardiac arrest. GISEL Amin Jeffrey A, MD 11/11/2024 5:38 PM Signed Let patient know I can send him to cardio but he may still end up needed to see Cardio if it's with us in [place] it could be 4-5 months to get in or I can send him to [place] [facility]. There is a Dr. Nikkie Galindo with [facility] in [place] who is an district wire chief. Nargis Haddad RN 11/11/2024 6:22 PM Signed Pt's called and is notified of providers message and instructions. She voices understanding. She is ok with [facility] in [place], she states she knows how to get there. I transferred her through to scheduling to set up appointment with Dr. Nikkie Galindo with [facility] in [place] who is an district wire chief. Nargis Haddad RN Allergies As of Date: 11/11/2024 Noted Allergy Reaction PENICILLINS 05/27/2006 16 - Unknown Comments: Not sure he has allergy Date Reviewed: 10/19/2024 Reviewed by: Zuleima Kumar RPFT - Fully Assessed Reason for Visit: Results [95] Cmt: Holter Primary Visit Diagnosis:SVT (supraventricular tachycardia) ([facility]) [I47.10] Other Visit Diagnosis:V-tach ([facility]) [I47.20] Order(s):CONSULT TO ELECTROPHYSIOLOGY [[id number]] Order #: [id number]: 1 FUTURE Prescriptions as of 11/11/2024 - magnesium oxide 200 mg magnesium chew Take 200 mg by mouth two times a day. - diphenoxylate-atropine (LOMOTIL) 2.5-0.025 mg per tablet Take 1 tablet by mouth two times a day as needed for diarrhea for up to 180 days. - omeprazole (PRILOSEC) 20 mg capsule Take 1 capsule by mouth once daily. - Benzonatate 200 mg capsule Take 1 capsule by mouth three times a day as needed. - levothyroxine (SYNTHROID) 175 mcg tablet Take 1 tablet by mouth once daily. Sat-Sat and two on Saturday and Saturday - pioglitazone (ACTOS) 30 mg tablet Take 1 tablet by mouth once daily. - pravastatin (PRAVACHOL) 40 mg tablet Take 1 tablet by mouth daily at bedtime. - glimepiride (AMARYL) 2 mg tablet Take 1 tablet by mouth two times a day with meals. - metFORMIN ER (GLUCOPHAGE XR) 500 mg 24 hr tablet TAKE 2 TABLETS BY MOUTH ONE TIME DAILY 12 HOURS APART FROM JANUMET - SITagliptin-metFORMIN (JANUMET XR) 100-1,000 mg TM24 Take 1 tablet by mouth once daily. - tamsulosin (FLOMAX) 0.4 mg Take 1 capsule by mouth two times a day. - losartan (COZAAR) 100 mg tablet Take 1 tablet by mouth once daily. - DUPIXENT PEN 300 mg/2 mL pen Inject 300 mg subcutaneously every [address] Evans Sommer - Cholecalciferol, Vitamin D3, 50 mcg (2,000 unit) cap Take by mouth once daily. - ASPIRIN 81 MG TAB Take one(1) tablet daily. Problem List As Of Date 11/11/2024 Noted Resolved DIABETES MELLITUS TYPE II UNCONTR UNCOMPL [IMO0*02/11/2007 03/03/2007 CALCULUS OF KIDNEY [N20.0] 02/11/2007 02/11/2007 Unspecified hearing loss [H91.90] 02/11/2007 Contact dermatitis and other eczema, due to uns*02/11/2007 Family history of ischemic heart disease [Z82.4*02/11/2007 Diverticulosis of large intestine [K57.30] 02/11/2007 Actinic keratosis [L57.0] 03/06/2007 OVERWEIGHT [E66.9] 03/06/2007 Elevated C-reactive protein (CRP) [R79.82] 08/27/2007 Deviated nasal septum [J34.2] 06/15/2009 Palpitations [R00.2] 07/10/2013 Right VATS upper lobectomy [C34.10] 01/20/2021 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 Normal [facility] Magnesium SerPl-mCncon 11-02 Magnesium [Mass/Vol] 1.6 mg/dL Low 1.7-2.3 [facility] Comment on above: Order Comment: Speci men Type: BLOOD SPECIMENOrdering Facility: [facility] Address: [address] [place], [place] [id number] Performed By: #### 1 9123-9, 3016-3 ####[facility] LABCLIA [id number] [place] [id number] [place] TSH SerPl-aCncon 11-02-2024 TSH Qn 0.146 m[IU]/L Low 0.270-4.200 [facility] Comment on above: Order Comment: Speci men Type: BLOOD SPECIMENOrdering Facility: [facility] Address: [address] [place] [address] Performed By: #### 1 9123-9, 3016-3 ####[facility] LABIA [id number] [address] STATES OF [facility] ECHOon 10-19-2024 Echocardiography Echocardiography Rep ort: Transthoracic Echo [facility] Date of service: 10/19/2024 10:16:22 AM RECOVERY Ordering physician: YVAN RAHMAN Exam indication: Shortness of Breath Technologist: Tata Merrill [facility] Interpreting physician: Alfred Pavon MD PATIENT: Name: SANTOS MOREL : 1940 Age: 84 years Gender: M History of hypertension and dyslipidemia. Primary rhythm: sinus. Secondary rhythm: RBBB. Height: 178.40 cm BSA: 2.04 m Weight: 84.37 kg BMI: 26.5 kg/m Heart rate 88 bpm Blood pressure 153/67 mmHg Technically difficult exam due to body habitus. Color Doppler was utilized to interrogate the cardiac valves assessed and spectral Doppler was utilized to determine the flow velocities and pressure gradients reported in this exam. Myocardial strain analysis was performed in this exam to aid in the assessment of cardiac function. MEASUREMENTS: Value Indexed Normal Max aortic dimension 3.1 cm Ao < 3.8 Left atrial volume 26 ml (biplane A-L) 13 ml/m Stepan <= 34 LV ID (diastole) 3.8 cm (2D) 1.87 cm/m LV ID (systole) 2.4 cm (2D) 1.20 cm/m IVS, leaflet tips 1.2 cm (2D) Posterior wall thickness 1.2 cm (2D) Left ventricular mass 155 g (2D) 76 g/m Global peak long strain -18.7 % LV stroke volume 55 ml (2D biplane) LV end diastolic volume 83 ml (2D biplane) 40.4 ml/m 34<=EDVi<75 LV end systolic volume 27 ml (2D biplane) 13.4 ml/m Ejection Fraction 67 % (2D biplane) EF > 52 FINDINGS: LEFT VENTRICLE The left ventricle is normal in size. There is mild concentric left ventricular hypertrophy. Left ventricular systolic function is normal. Global LV myocardial strain is normal. Grade I left ventricular diastolic dysfunction. Mitral annular lateral E/e': 7.9. Mitral annular septal E/e': 9.0. Wall Motion: All scored segments are normal. RIGHT VENTRICLE The right ventricle is normal in size. Right ventricular systolic function is normal. RV systolic tissue Doppler velocity is 14.0 cm/s. Tricuspid annular displacement is 1.7 cm. Estimated right atrial pressure is not included as the IVC was not seen. LEFT ATRIUM The left atrial cavity is normal in size. RIGHT ATRIUM The right atrial cavity is normal in size. MITRAL VALVE The mitral valve leaflets are structurally normal. There is no mitral valve regurgitation. The pressure half time is 77 msec. The peak mitral E/A ratio is 0.66. The average mitral E/e' ratio is 8.4. The mitral flow deceleration time is 264 msec. TRICUSPID VALVE The tricuspid valve leaflets are structurally normal. There is no tricuspid valve regurgitation. AORTIC VALVE The aortic valve cusps are structurally normal. There is no aortic valve regurgitation. Tricuspid aortic valve. The peak gradient is 11 mmHg (peak velocity = 164.0 cm/s). PULMONIC VALVE The pulmonic valve cusps are structurally normal. There is no pulmonic valve regurgitation. AORTA The visualized aorta is normal in size. Measurements - Mid ascending aorta 3.1 cm. INTERATRIAL SEPTUM There is no evidence of intracardiac shunting as detected by Doppler. INTERVENTRICULAR SEPTUM There is abnormal motion of the interventricular septum secondary to abnormal conduction. PERICARDIUM There is no pericardial effusion. There is an epicardial fat pad. CONCLUSIONS: - Technically difficult exam due to body habitus. - Exam indication: Shortness of Breath - The left ventricle is normal in size. There is mild concentric left ventricular hypertrophy. Left ventricular systolic function is normal. EF = 67 5% (2D biplane) Grade I left ventricular diastolic dysfunction. - The right ventricle is normal in size. Right ventricular systolic function is normal. - There are no significant valvular abnormalities. - Exam was compared with the prior echocardiographic exam performed on 11/04/2007, no significant change. * * * Final * * * [facility] : [id number] Normal [facility] SPIROMETRY - BASELINE AND PO ST DILATORon 10-19-2024 FEF25% POST (L/S) 3.43 L/S [facility] FEF25% PRE (L/S) 3.15 L/S [facility] ZKJ85-54% LLN (L/S) 0.71 L/S [facility] BZO07-05% POST (L/S) 1 L/S [facility] HIR85-62% PRE (L/S) 0.75 L/S [facility] ONY78-32% PREDICTED (L/S) 1.94 L/S [facility] FEF75% LLN (L/S) 0.15 L/S [facility] FEF75% POST (L/S) 0.42 L/S [facility] FEF75% PRE (L/S0 0.2 L[facility]S [facility] FEF75% PREDICTED (L/S) 0.47 L/S [facility] FEF75% ULN (L/S) 1.37 L/S [facility] FET POST (S) 11.64 S [facility] FET PRE (S) 16.5 S [facility] FEV1 LLN (L) 1.96 L [facility] FEV1 PRE (L) 1.9 L [facility] FEV1 PREDICTED (L) 2.73 L [facility] FEV1 ULN (L) 3.45 L [facility] FEV1/FVC LLN (%) 61 % [facility] FEV1/FVC POST (%) 61 % [facility] FEV1/FVC PRE (%) 59 % [facility] FEV1/FVC PREDICTED (%) 75 % Cl [facility] FEV1_POST (L) 2 L [facility] FVC LLN (L) 2.75 L [facility] FVC POST (L) 3.3 L [facility] FVC PRE (L) 3.2 L [facility] FVC PREDICTED (L) 3.74 L [facility] FVC ULN (L) 4.75 L [facility] PEF LLN (L/S) 4.6 L/S [facility] PEF POST (L/S) 5.62 L/S [facility] PEF PRE (L/S) 4.53 L/S [facility] PEF ULN (L/S) 9.23 L/S [place] [address] [place] [address] Test Date: 2024-10-19 Pat Name: SANTOS MOREL Department: Room: Gender: Male Back Office Medical Assistant: : 1940 Requested By: Order Number: [id number] Reading MD: Livia Paredes MD Interpretive Statements Medications and Allergies were reviewed for possible drug interactions per policy. No contraindications or sensitivities were noted. Meds taken: No inhaled respiratory medications taken before testing. 4 puffs Albuterol (360 mcg) delivered by MDI via holding chamber. HR pre = 89/min, HR post = 88/min. Current ATS/ERS acceptability and repeatability standards for spirometry met. Start of test and EOFE criteria met. IMPRESSION: Spirometry indicates moderate obstruction. The increase in FEF 25-75 post-bronchodilator reflects an improvement in the small airway obstruction. Electronically Signed On 10-19-2024 16:06:40 EDT by Livia Paredes MD ID: [id number] Name: SANTOS MOREL Race: White Ht: 70.00 in Wt: 188.00 lbs Age: 84 Gender: Male : 1940 Dx: Shortness of breath Smoking Hx: Non-smoker Doctor: YVAN RAHMAN Test Date: 10/19/2024 Site: Tech: Zuleima Kumar PRE-BRONCH POST-BRONCH Jose LLN Pred ULN %Pred ZScore Jose %Pred %Chg ZScore SPIROMETRY FVC 3.20 2.75 3.74 4.75 85 -0.90 3.30 88 2 -0.73 FEV1 1.90 1.96 2.73 3.45 69 -1.76 2.00 73 3 -1.56 FEV1/FVC 0.59 0.61 0.75 0.87 79 -1.76 0.61 80 1 -1.65 FEFMax 4.53 4.60 6.92 9.23 65 -1.70 5.62 81 23 -0.92 FEF50 1.10 1.48 3.60 5.73 30 -1.94 1.30 36 18 -1.78 FIF50 4.30 4.52 4 FEF50/FIF50 0.25 90-100 0.29 13 FIVC 3.08 3.13 1 SSP98-47 0.75 0.71 1.94 3.78 38 -1.58 1.00 51 34 -1.17 ExpiredTime 16.50 11.64 -29 TimeToFEFMax 0.09 0.07 -18 KELLI 0.08 0.07 -16 VolExtrap% 3 2 -18 Comments: Medications and Allergies were reviewed for possible drug interactions per policy. No contraindications or sensitivities were noted. Meds taken: No inhaled respiratory medications taken before testing. 4 puffs Albuterol (360 mcg) delivered by MDI via holding chamber. HR pre = 89/min, HR post = 88/min. Current ATS/ERS acceptability and repeatability standards for spirometry met. Start of test and EOFE criteria met. PULMONARY FUNCTION LAB [facility] SPIROMETRY - BASELINE AND POST DILATOR [facility] [address] [address] Test Date: 2024-10-19 Pat Name: SANTOS MOREL Department: Room: Gender: Male Back Office Medical Assistant: : 1940 Requested By: Order Number: [id number] Erik MD: Livia Paredes MD Interpretive Statements Medications and Allergies were reviewed for possible drug interactions per policy. No contraindications or sensitivities were noted. Meds taken: No inhaled respiratory medications taken before testing. 4 puffs Albuterol (360 mcg) delivered by MDI via holding chamber. HR pre = 89/min, HR post = 88/min. Current ATS/ERS acceptability and repeatability standards for spirometry met. Start of test and EOFE criteria met. IMPRESSION: Spirometry indicates moderate obstruction. The increase in FEF 25-75 post-bronchodilator reflects an improvement in the small airway obstruction. Electronically Signed On 10-19-2024 16:06:40 EDT by Livia Paredes MD ID: [id number] Name: SANTOS MOREL Race: White Ht: 70.00 in Wt: 188.00 lbs Age: 84 Gender: Male : 1940 Dx: Shortness of breath Smoking Hx: Non-smoker Doctor: YVAN RAHMAN Test Date: 10/19/2024 Site: Tech: Zuleima Kumar PRE-BRONCH POST-BRONCH Jose LLN Pred ULN %Pred ZScore Jose %Pred %Chg ZScore SPIROMETRY FVC 3.20 2.75 3.74 4.75 85 -0.90 3.30 88 2 -0.73 FEV1 1.90 1.96 2.73 3.45 69 -1.76 2.00 73 3 -1.56 FEV1/FVC 0.59 0.61 0.75 0.87 79 -1.76 0.61 80 1 -1.65 FEFMax 4.53 4.60 6.92 9.23 65 -1.70 5.62 81 23 -0.92 FEF50 1.10 1.48 3.60 5.73 30 -1.94 1.30 36 18 -1.78 FIF50 4.30 4.52 4 FEF50/FIF50 0.25 90-100 0.29 13 FIVC 3.08 3.13 1 GJC81-04 0.75 0.71 1.94 3.78 38 -1.58 1.00 51 34 -1.17 ExpiredTime 16.50 11.64 -29 TimeToFEFMax 0.09 0.07 -18 KELLI 0.08 0.07 -16 VolExtrap% 3 2 -18 Comments: Medications and Allergies were reviewed for possible drug interactions per policy. No contraindications or sensitivities were noted. Meds taken: No inhaled respiratory medications taken before testing. 4 puffs Albuterol (360 mcg) delivered by MDI via holding chamber. HR pre = 89/min, HR post = 88/min. Current ATS/ERS acceptability and repeatability standards for spirometry met. Start of test and EOFE criteria met. FVC_PRE (L) : 3.20 L FVC_POST (L) : 3.30 L FVC_PRED (L) : 3.74 L FVC_LLN (L) : 2.75 L FVC_ULN (L) : 4.75 L FEV1_PRE (L) : 1.90 L FEV1_POST (L) : 2.00 L FEV1_PRED (L) : 2.73 L FEV1_LLN (L) : 1.96 L FEV1_ULN (L) : 3.45 L FEV1/FVC_PRE (%) : 59 % FEV1/FVC_POST (%) : 61 % FEV1/FVC_PRED (%) : 75 % FEV1/FVC_LLN (%) : 61 % GCU93_VIR (L/S) : 3.15 L/S BIP95_BNYQ (L/S) : 3.43 L/S EJD23_LDB (L/S) : 0.20 L/S TZJ25_QYMI (L/S) : 0.42 L/S TLO94_RANZ (L/S) : 0.47 L/S VMB59_MOW (L/S) : 0.15 L/S RCH50_SQE (L/S) : 1.37 L/S GGX86-13%_PRE (L/S) : 0.75 L/S RJY13-64%_POST (L/S) : 1.00 L/S NKQ48-58%_PRED (L/S) : 1.94 L/S WHL51-41%_LLN (L/S) : 0.71 L/S PEF_PRE (L/S) : 4.53 L/S PEF_POST (L/S) : 5.62 L/S PEFMAX_LLN (L/S) : 4.60 L/S PEFMAX_ULN (L/S) : 9.23 L/S FET_PRE (S) : 16.50 S FET_POST (S) : 11.64 S Normal [facility] CNOVon 10-06-2024 CNOV Office Visit (FAMPWS ) -- SANTOS MOREL ([id number]) 1940 M Date Time Provider Department 10/06/24 11:00 AM YVAN RAHMAN During your visit today, we recorded the following information about you: Pulse Respiration Blood pressure Weight 91/minute 18/minute 118/70 84.4 kg Yvan Rahman MD 10/06/2024 8:40 PM Signed Chief Complaint Patient presents with: Follow Up HPI Santos Morel is a 84 year old male who presents here today for follow up on sugars/BP Patient had chest x ray today. notes when he walks to the mail box he is winded at times due to seeing him puffing. thought it may have been due to his Actos so she held it for a week and there was no change. No wheezing with it. She did restart the Actos. His fasting blood sugar today was 124. Lowest has been 114 and highest was 160's. Patient is doing PHYSICAL THERAPY and per doing a lot better. Did not need to come into the appt with the use of a walker or wheel chair like at the f/u in August. No longer having the cough like he had been. No chest pain or heaviness. Does not feel palpitations but he still gets HR's in the upper 90's. Not aware if the HR is higher when he feels more winded. Often has to take a rest to get his breath back if out walking.. Patient denies any orthopnea or nocturnal dyspnea. Feels he is breathing better at night. Office visit 09/02/2024 - hospital follow up Patient was admitted to [facility] on 08/19/2024 and Discharged in 08/23/2024 Viral sepsis secondary to norovirus. Patient was hypoxic upon arrival O2 sat in the 80's, also tachyneic, tachycardic also retaining urine, patient tested and was positive for norovirus. TSH levels elevated so synthroid was decreased to 150 mg daily. indicated that they reduced the Thyroid medication due to high heart rate. His TH was 0.069. with hx of papillary thyroid cancer goal is to keep him between 0.1-0.5 Also given melatonin for sleep. indicated that this is not helping Patent also taking OTC Magnesium Gyl 150 mg once a day. FBS today 245: had a bowel of shredded wheat with sugar Diarrhea has stopped. Appetite is still down and feels. Is getting around with a walker but feels weak and run down. Past medical history, appointments, medications, allergies reviewed. Previous Medical History PAST MEDICAL HISTORY Diagnosis Date Abnormal CT of liver 07/07/2018 2017: suspected cirrhosis. Saw Dr. Rocha [facility] who felt this was not cirrhosis. Actinic keratosis 03/06/2007 Benign non-nodular prostatic hyperplasia with lower urinary tract symptoms 03/16/2015 History of BPH. takes flomax at home. Voiding without difficulty Plan; - resume flomax 09/29/2013 - voiding Calculus of kidney 02/11/2007 Contact dermatitis and other eczema, due to unspecified cause 02/11/2007 Bilateral metacarpals, elbow - mild Controlled type 2 diabetes mellitus without complication, without long-term current use of insulin (HCC) 03/05/2015 Deviated nasal septum 06/15/2009 Diabetic eye exam (HCC) 08/27/2014 Last done: 02/13/18 No Retinopathy Diverticulosis of large intestine 02/11/2007 Finding on Colonoscopy 2000 Elevated C-reactive protein (CRP) 08/27/2007 Elevated prostate specific antigen (PSA) 03/16/2015 Essential hypertension 03/05/2015 Family history of ischemic heart disease 02/11/2007 Father age 54 [place] Gastroesophageal reflux disease without esophagitis 03/05/2015 History of kidney stones 05/19/2014 History of lung cancer 01/20/2021 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 Released (01/07/2019) Hypomagnesemia 06/30/2019 Internal hemorrhoids without mention of complication Living will in place 08/02/2021 DPA: (Lisa) Lung cancer, upper lobe (HCC) 08/21/13: Right. NSCLC. Neg EBUS staging of mediastinum. Malignant neoplasm of upper lobe of right lung (HCC) 03/16/[address] Maria: Adenocarcinoma Stage IB, Refused chemo. Malignant neoplasm of upper lobe of right lung (HCC) 03/16/2015 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 Maria: Adenocarcinoma Stage IB, Refused chemo. 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 Upper back pain on left side 03/16/2015 VTE Prophylaxis 09/29/2013 The pt was on Lovenox 40mg SC daily and SCD for VTE prophylaxis. No signs or symptoms of DVT/PE. The patient is at High risk for VTE. Plan: - KATIE - Encourage continued ambulation . Previous Surgical History PAST SURGICAL HISTORY Procedure Laterality Date CAROTID ULTRASOUND BILATERAL CO (more content not included)... [facility] CNPNon 10-06-2024 CNPN Telephone (FAMPWS) -- SANTOS MOREL ([id number]) 1940 M Date Time Provider Department 10/06/24 [facility] During your visit today, we recorded the following information about you: Yvan Rahman MD 10/06/2024 8:42 PM Signed L;et patient know repeat chest x-ray showed no acute or persistent issues. Just chronic post surgical changes. Fletcher Parks MA 10/07/2024 9:35 AM Signed Left message for patient to contact office. GISEL Ac Sherrie, RN 10/07/2024 9:57 AM Signed Pt's spouse returned call and given provider's message below, regarding patient. Judy Blair RN Allergies As of Date: 10/06/2024 Noted Allergy Reaction PENICILLINS 05/27/2006 16 - Unknown Comments: Not sure he has allergy Date Reviewed: 10/06/2024 Reviewed by: Yvan Rahman MD - Fully Assessed Reason for Visit: Results [95] Prescriptions as of 10/07/2024 - omeprazole (PRILOSEC) 20 mg capsule Take 1 capsule by mouth once daily. - Magnesium Glycinate 100 mg tab Take 1.5 tablets by mouth once daily. - Benzonatate 200 mg capsule Take 1 capsule by mouth three times a day as needed. - levothyroxine (SYNTHROID) 175 mcg tablet Take 1 tablet by mouth once daily. Sat-Sat and two on Saturday and Saturday - pioglitazone (ACTOS) 30 mg tablet Take 1 tablet by mouth once daily. - pravastatin (PRAVACHOL) 40 mg tablet Take 1 tablet by mouth daily at bedtime. - glimepiride (AMARYL) 2 mg tablet Take 1 tablet by mouth two times a day with meals. - metFORMIN ER (GLUCOPHAGE XR) 500 mg 24 hr tablet TAKE 2 TABLETS BY MOUTH ONE TIME DAILY 12 HOURS APART FROM JANUMET - SITagliptin-metFORMIN (JANUMET XR) 100-1,000 mg TM24 Take 1 tablet by mouth once daily. - tamsulosin (FLOMAX) 0.4 mg Take 1 capsule by mouth two times a day. - losartan (COZAAR) 100 mg tablet Take 1 tablet by mouth once daily. - diphenoxylate-atropine (LOMOTIL) 2.5-0.025 mg per tablet Take 1 tablet by mouth two times a day as needed for diarrhea for up to 180 days. - DUPIXENT PEN 300 mg/2 mL pen Inject 300 mg subcutaneously every [address] Evans Sommer - Cholecalciferol, Vitamin D3, 50 mcg (2,000 unit) cap Take by mouth once daily. - ASPIRIN 81 MG TAB Take one(1) tablet daily. Problem List As Of Date 10/06/2024 Noted Resolved DIABETES MELLITUS TYPE II UNCONTR UNCOMPL [IMO0*02/11/2007 03/03/2007 CALCULUS OF KIDNEY [N20.0] 02/11/2007 02/11/2007 Unspecified hearing loss [H91.90] 02/11/2007 Contact dermatitis and other eczema, due to uns*02/11/2007 Family history of ischemic heart disease [Z82.4*02/11/2007 Diverticulosis of large intestine [K57.30] 02/11/2007 Actinic keratosis [L57.0] 03/06/2007 OVERWEIGHT [E66.9] 03/06/2007 Elevated C-reactive protein (CRP) [R79.82] 08/27/2007 Deviated nasal septum [J34.2] 06/15/2009 Palpitations [R00.2] 07/10/2013 Right VATS upper lobectomy [C34.10] 01/20/2021 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] 10/09/2013 History of kidney stones [Z87.442] 05/19/2014 Diabetic eye exam (HCC) [Z01.00, E11.9] 08/27/2014 Disorder of prostate [N42.9] 08/27/2014 Controlled type 2 diabetes mellitus without com*03/05/2015 Mixed hyperlipidemia [E78.2] 03/05/2015 Essential hypertension [I10] 03/05/2015 Gastroesophageal reflux disease without esophag*03/05/2015 Benign non-nodular prostatic hyperplasia with l*03/16/2015 Upper back pain on left side [M54.9] 03/16/2015 Elevated prostate specific antigen (PSA) [R97.2*03/16/2015 Malignant neoplasm of upper lobe of right lung *03/16/2015 01/20/2021 Medicare annual wellness visit, subsequent [Z00*06/14/[address] of liver [R93.2] 07/07/2018 Hypomagnesemia [E83.42] 06/30/2019 Medication management [Z79.899] 07/05/2020 History of lung cancer [Z85.118] 01/20/2021 Post-surgical hypothyroidism [E89.0] 01/20/[address] [Z78.9] 08/02/2021 Advance directive discussed with patient [Z71.8*08/02/2021 Bilateral carotid artery stenosis [I65.23] 08/23/2022 Chronic left shoulder pain [M25.512, G89.29] 02/25/2023 Reynolds virus [A08.11] 09/17/2024 Sepsis without acute organ dysfunction (HCC) [A*09/17/2024 Post viral debility [R53.81, B94.8] 09/17/2024 Weakness acquired in ICU [R53.1] 09/17/2024 Encounter Status:Closed by JUDY BLAIR on 10/07/24 [facility] XR CHEST 2V FRONTAL/LATon XR CHEST 2V FRONTAL/LAT * * *Final Report* * * DATE OF EXAM: Oct 06 2024 10:54AM WOX 5291 - XR CHEST 2V FRONTAL/LAT / PROCEDURE REASON: Acute cough * * * * Physician Interpretation * * * * EXAMINATION: CHEST RADIOGRAPH (2 VIEW FRONTAL and LATERAL) CLINICAL HISTORY: Acute cough MQ: XC2_6 EXAM DATE/TIME: 10/06/2024 10:54 AM COMPARISON: 01/12/2020 and 08/28/2024 RESULT: Lines, tubes, and devices: None. Lungs and pleura: Stable postoperative appearance of the chest. Volume loss on the right. No persistent or developing acute abnormality. No pleural fluid or pneumothorax Cardiomediastinal silhouette: Normal cardiomediastinal silhouette. Bones and soft tissues: Unremarkable. IMPRESSION: No persistent or developing acute abnormality. Child Care Team Lead: CEZAR Transcribe Date/Time: Oct 06 2024 12:09P Dictated by : HAYDEE SMITH MD This examination was interpreted and the report reviewed and electronically signed by: HAYDEE SMITH MD on Oct 06 2024 12:10PM EST [id number] [facility] XR Chest PA and Lateralon IMPRESSION: No persistent or developing acute abnormality. Child Care Team Lead: PSCB Transcribe Date/Time: Oct 06 2024 12:09P Dictated by : HAYDEE SMITH MD This examination was interpreted and the report reviewed and electronically signed by: HAYDEE SMITH MD on Oct 06 2024 12:10PM EST DIVISION OF RADIOLOGY * * *Final Report* * * DATE OF EXAM: Oct 06 2024 10:54AM WOX 5291 - XR CHEST 2V FRONTAL/LAT / PROCEDURE REASON: Acute cough * * * * Physician Interpretation * * * * EXAMINATION: CHEST RADIOGRAPH (2 VIEW FRONTAL & LATERAL) CLINICAL HISTORY: Acute cough MQ: XC2_6 EXAM DATE/TIME: 10/06/2024 10:54 AM COMPARISON: 01/12/2020 and 08/28/2024 RESULT: Lines, tubes, and devices: None. Lungs and pleura: Stable postoperative appearance of the chest. Volume loss on the right. No persistent or developing acute abnormality. No pleural fluid or pneumothorax Cardiomediastinal silhouette: Normal cardiomediastinal silhouette. Bones and soft tissues: Unremarkable. DIVISION OF RADIOLOGY Provider, [facility] - 10/06/2024 * * *Final Report* * * DATE OF EXAM: Oct 06 2024 10:54AM WOX 5291 - XR CHEST 2V FRONTAL/LAT / PROCEDURE REASON: Acute cough * * * * Physician Interpretation * * * * EXAMINATION: CHEST RADIOGRAPH (2 VIEW FRONTAL & LATERAL) CLINICAL HISTORY: Acute cough MQ: XC2_6 EXAM DATE/TIME: 10/06/2024 10:54 AM COMPARISON: 01/12/2020 and 08/28/2024 RESULT: Lines, tubes, and devices: None. Lungs and pleura: Stable postoperative appearance of the chest. Volume loss on the right. No persistent or developing acute abnormality. No pleural fluid or pneumothorax Cardiomediastinal silhouette: Normal cardiomediastinal silhouette. Bones and soft tissues: Unremarkable. IMPRESSION IMPRESSION: No persistent or developing acute abnormality. Child Care Team Lead: PSCB Transcribe Date/Time: Oct 06 2024 12:09P Dictated by : HAYDEE SMITH MD This examination was interpreted and the report reviewed and electronically signed by: HAYDEE SMITH MD on Oct 06 2024 12:10PM EST [facility] Radiology Study observation (narrative) [facility] XR Chest PA and LateralOrder ed By: [facility] Provider on 10-06-2024 [facility] CNTHERAPYon 10-02-2024 CNTHERAPY OT/PT/Speech Visit ( PTWS) -- ADRIELSANTOS ([id number]) 1940 M Date Time Provider Department 10/02/24 1:00 PM MORRO DURHAM PTWS Date Time Provider Department Center 10/02/2024 1:00 PM [id number], [place] PTWS Carley Richter Reason for Visit: Physical Therapy [503] PT Discharge [752] Primary Visit Diagnosis:Reynolds virus [A08.11] Other Visit Diagnoses:Post viral debility [R53.81, B94.8] Weakness acquired in ICU [R53.1] Sepsis without acute organ dysfunction, due to unspecified organism (HCC) [A41.9] Allergies As of Date: 10/02/2024 Noted Allergy Reaction PENICILLINS 05/27/2006 16 - Unknown Comments: Not sure he has allergy Date Reviewed: 09/02/2024 Reviewed by: Fletcher Parks MA - Fully Assessed Prescriptions as of 12/17/2024 - metFORMIN ER (GLUCOPHAGE XR) 500 mg 24 hr tablet TAKE 2 TABLETS BY MOUTH ONE TIME DAILY 12 HOURS APART FROM JANUMET - levothyroxine (SYNTHROID) 175 mcg tablet Take on tablet daily Mon-Fri and Two on Sat, Sun. - losartan (COZAAR) 100 mg tablet Take 1 tablet by mouth once daily. - SITagliptin-metFORMIN (JANUMET XR) 100-1,000 mg TM24 Take 1 tablet by mouth once daily. - glimepiride (AMARYL) 2 mg tablet Take 1 tablet by mouth two times a day with meals. - albuterol HFA (PROVENTIL HFA, VENTOLIN HFA) 90 mcg/actuation inhaler Inhale 2 puffs as instructed every 4 hours as needed. - magnesium oxide 200 mg magnesium chew Take 200 mg by mouth two times a day. - diphenoxylate-atropine (LOMOTIL) 2.5-0.025 mg per tablet Take 1 tablet by mouth two times a day as needed for diarrhea for up to 180 days. - omeprazole (PRILOSEC) 20 mg capsule Take 1 capsule by mouth once daily. - Benzonatate 200 mg capsule Take 1 capsule by mouth three times a day as needed. - pioglitazone (ACTOS) 30 mg tablet Take 1 tablet by mouth once daily. - pravastatin (PRAVACHOL) 40 mg tablet Take 1 tablet by mouth daily at bedtime. - tamsulosin (FLOMAX) 0.4 mg Take 1 capsule by mouth two times a day. - DUPIXENT PEN 300 mg/2 mL pen Inject 300 mg subcutaneously every [address] Evans Sommer - Cholecalciferol, Vitamin D3, 50 mcg (2,000 unit) cap Take by mouth once daily. - ASPIRIN 81 MG TAB Take one(1) tablet daily. Bombsight Specialist: Therapy (PT/OT/Speech/Resp) ID: [id number] 10/02/2024 1:34 PM Author: MORRO DURHAM Signed by MORRO DURHAM PT on 10/02/2024 at 1:34 PM Document text: Program_ID:[id number] Access Code: [email or web address] URL: [email or web address]/ Date: 10-02-2024 Prepared By: Morro Durham Program Notes Exercises - Walking - 1-2 x daily - 7 x weekly - sets - reps - Sit to Stand with Arms Crossed - 2 x daily - 7 x weekly - 2-3 sets - 8-10 reps - Standing Hip Abduction with Counter Support - 2 x daily - 7 x weekly - 2-3 sets - 8-10 reps - Heel Raises with Counter Support - 2 x daily - 7 x weekly - 2 sets - 10-15 reps - Toe Raises with Counter Support - 2 x daily - 7 x weekly - 2 sets - 10-15 reps - Mini Squat with Counter Support - 2 x daily - 7 x weekly - 2 sets - 8-12 reps - Standing March with Counter Support - 2 x daily - 7 x weekly - 2 sets - 10-12 reps [facility] THERAPY NTon 10-02-2024 THERAPY NT HNO ID: [id number] Author: MORRO DURHAM PT Service: ? Author Type: Physical Therapist Type: Therapy (PT/OT/Speech/Resp) Filed: 10/02/2024 13:34 Note Text: Program_ID:[id number] Access Code: [email or web address] URL: [email or web address] Date: 10-02-2024 Prepared By: Morro Durham Program Notes Exercises - Walking - 1-2 x daily - 7 x weekly - sets - reps - Sit to Stand with Arms Crossed - 2 x daily - 7 x weekly - 2-3 sets - 8-10 reps - Standing Hip Abduction with Counter Support - 2 x daily - 7 x weekly - 2-3 sets - 8-10 reps - Heel Raises with Counter Support - 2 x daily - 7 x weekly - 2 sets - 10-15 reps - Toe Raises with Counter Support - 2 x daily - 7 x weekly - 2 sets - 10-15 reps - Mini Squat with Counter Support - 2 x daily - 7 x weekly - 2 sets - 8-12 reps - Standing March with Counter Support - 2 x daily - 7 x weekly - 2 sets - 10-12 reps [facility] CNTHERAPYon 09-25-2024 CNTHERAPY OT/PT/Speech Visit ( PTWS) -- SANTOS MOREL ([id number]) 1940 M Date Time Provider Department 09/25/24 11:15 AM MORRO DURHAM PTWS Date Time Provider Department [place] 09/25/2024 11:15 AM [id number], [place] PTWS Carley Richter Reason for Visit: Physical Therapy [503] Primary Visit Diagnosis:Reynolds virus [A08.11] Other Visit Diagnoses:Post viral debility [R53.81, B94.8] Weakness acquired in ICU [R53.1] Sepsis without acute organ dysfunction, due to unspecified organism (HCC) [A41.9] Allergies As of Date: 09/25/2024 Noted Allergy Reaction PENICILLINS 05/27/2006 16 - Unknown Comments: Not sure he has allergy Date Reviewed: 09/02/2024 Reviewed by: Fletcher Parks MA - Fully Assessed Prescriptions as of 09/25/2024 - omeprazole (PRILOSEC) 20 mg capsule Take 1 capsule by mouth once daily. - Magnesium Glycinate 100 mg tab Take 1.5 tablets by mouth once daily. - Benzonatate 200 mg capsule Take 1 capsule by mouth three times a day as needed. - levothyroxine (SYNTHROID) 175 mcg tablet Take 1 tablet by mouth once daily. Sat-Sat and two on Saturday and Saturday - pioglitazone (ACTOS) 30 mg tablet Take 1 tablet by mouth once daily. - pravastatin (PRAVACHOL) 40 mg tablet Take 1 tablet by mouth daily at bedtime. - glimepiride (AMARYL) 2 mg tablet Take 1 tablet by mouth two times a day with meals. - metFORMIN ER (GLUCOPHAGE XR) 500 mg 24 hr tablet TAKE 2 TABLETS BY MOUTH ONE TIME DAILY 12 HOURS APART FROM JANUMET - SITagliptin-metFORMIN (JANUMET XR) 100-1,000 mg TM24 Take 1 tablet by mouth once daily. - tamsulosin (FLOMAX) 0.4 mg Take 1 capsule by mouth two times a day. - losartan (COZAAR) 100 mg tablet Take 1 tablet by mouth once daily. - diphenoxylate-atropine (LOMOTIL) 2.5-0.025 mg per tablet Take 1 tablet by mouth two times a day as needed for diarrhea for up to 180 days. - DUPIXENT PEN 300 mg/2 mL pen Inject 300 mg subcutaneously every [address] Evans Sommer - Cholecalciferol, Vitamin D3, 50 mcg (2,000 unit) cap Take by mouth once daily. - ASPIRIN 81 MG TAB Take one(1) tablet daily. [facility] [id number] 09-17-2024 [id number] HNO ID: [id number] Author: MORRO DURHAM, PT Service: ? Author Type: Physical Therapist Type: [id number] Filed: 09/17/2024 14:01 Note Text: [facility] Rehabilitation [facility] Sports Therapy Physical Therapy Plan of Care Certification Patient Name: Santos oMrel : 1940 [facility] #: [id number] Date: 09/17/2024 To: Yvan Rahman MD From Therapist: oMrro Durham PT RE: Patient Certification/ Recertification Your review, approval and electronic signature are required in order to comply with Payor: MEDICARE / Plan: MEDICARE A AND B / Product Type: Medicare / regulations. The identified Physical Therapy PLAN OF CARE for the patient is as follows: A08.11 Reynolds virus (primary encounter diagnosis) A41.9 Sepsis without acute organ dysfunction, due to unspecified organism (HCC) R53.81, B94.8 Post viral debility R53.1 Weakness acquired in ICU PLAN OF CARE: Assessment: Santos Morel presents with chief complaint of deconditioning, weakness and SOB following hospitalization that interferes with rising from a chair, walking, stair negotiation, walking in the community, heavy exertion, physical activities . The patient presents with impairments in ADL's, balance, gait, independence in exercise, overall function, functional strength, and functional performance testing indicates patient is at risk for falls. PROMIS? (Patient-Reported Outcomes Measurement Information System) scores were reviewed and identified as a rehabilitation concern. Prognosis for therapy is Good due to: current objective clinical presentation, good overall health status, good support system/ coping skills . The patient will benefit from skilled therapy services to meet the goals established for this plan of care as noted below. Assessment Fall Risk : Inactive at risk PAST MEDICAL HISTORY Diagnosis Date Abnormal CT of liver 07/07/2018 2017: suspected cirrhosis. Saw Dr. Rocha [facility] who felt this was not cirrhosis. Actinic keratosis 03/06/2007 Benign non-nodular prostatic hyperplasia with lower urinary tract symptoms 03/16/2015 History of BPH. takes flomax at home. Voiding without difficulty Plan; - resume flomax 09/29/2013 - voiding Calculus of kidney 02/11/2007 Contact dermatitis and other eczema, due to unspecified cause 02/11/2007 Bilateral metacarpals, elbow - mild Controlled type 2 diabetes mellitus without complication, without long-term current use of insulin (HCC) 03/05/2015 Deviated nasal septum 06/15/2009 Diabetic eye exam ([facility]) 08/27/2014 Last done: 02/13/18 No Retinopathy Diverticulosis of large intestine 02/11/2007 Finding on Colonoscopy 2000 Elevated C-reactive protein (CRP) 08/27/2007 Elevated prostate specific antigen (PSA) 03/16/2015 Essential hypertension 03/05/2015 Family history of ischemic heart disease 02/11/2007 Father age 54 [place] Gastroesophageal reflux disease without esophagitis 03/05/2015 History of kidney stones 05/19/2014 History of lung cancer 01/20/2021 Right upper lobe: Dx 2014: Was Seeing Dr. Maria: Adenocarcinoma Stage IB, Refused chemo. Released (01/07/2019) Hypomagnesemia 06/30/2019 Internal hemorrhoids without mention of complication Living will in place 08/02/2021 DPA: (Lisa) Lung cancer, upper lobe (HCC) 08/21/13: Right. NSCLC. Neg EBUS staging of mediastinum. Malignant neoplasm of upper lobe of right lung (HCC) 03/16/[address] Maria: Adenocarcinoma Stage IB, Refused chemo. Malignant neoplasm of upper lobe of right lung (HCC) 03/16/2015 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 Maria: Adenocarcinoma Stage IB, Refused chemo. 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 No signs or symptoms of DVT/PE. The patient is at High risk for VTE. Plan: - KATIE - Encourage continued ambulation . Goals for Episode of Care: established 09/17/24 Patient reported outcome of physical function will increase T-score by a minimum 5 points. [place] in home exercise program. Increased strength of B Hip Flexors and ABD to 5/5 MMT for improvement in ADL/IADLs Reciprocal stair negotiation without need for use of rails. Improve performance on 4 Stage Balance Test to >5 semi-tandem and tandem to reflect decreased fall risk. Improve score on 30 Second Chair Stand to >11 repetitions to reflect decreased fall risk. Patient will improve 6 minute walk test by >100 feet Improve five time sit to stand by 2.3 seconds to meet MCID and decrease risk of falls Patient will improve Timed Up and G (more content not included)... [facility] CNTHERAPYon 09-17-2024 CNTHERAPY OT/PT/Speech Visit ( PTWS) -- SANTOS MOREL ([id number]) 1940 M Date Time Provider Department 09/17/24 12:15 PM MORRO DURHAM PTWS Date Time Provider Department [place] 09/17/2024 12:15 PM [id number], COLIN PTWS Carley Richter Reason for Visit: PT Eval [747] Primary Visit Diagnosis:Reynolds virus [A08.11] Other Visit Diagnoses:Sepsis without acute organ dysfunction, due to unspecified organism (HCC) [A41.9] Post viral debility [R53.81, B94.8] Weakness acquired in ICU [R53.1] Allergies As of Date: 09/17/2024 Noted Allergy Reaction PENICILLINS 05/27/2006 16 - Unknown Comments: Not sure he has allergy Date Reviewed: 09/02/2024 Reviewed by: Fletcher Parks MA - Fully Assessed Prescriptions as of 09/17/2024 - Magnesium Glycinate 100 mg tab Take 1.5 tablets by mouth once daily. - Benzonatate 200 mg capsule Take 1 capsule by mouth three times a day as needed. - levothyroxine (SYNTHROID) 175 mcg tablet Take 1 tablet by mouth once daily. Sat-Sat and two on Saturday and Saturday - pioglitazone (ACTOS) 30 mg tablet Take 1 tablet by mouth once daily. - pravastatin (PRAVACHOL) 40 mg tablet Take 1 tablet by mouth daily at bedtime. - glimepiride (AMARYL) 2 mg tablet Take 1 tablet by mouth two times a day with meals. - metFORMIN ER (GLUCOPHAGE XR) 500 mg 24 hr tablet TAKE 2 TABLETS BY MOUTH ONE TIME DAILY 12 HOURS APART FROM JANUMET - SITagliptin-metFORMIN (JANUMET XR) 100-1,000 mg TM24 Take 1 tablet by mouth once daily. - tamsulosin (FLOMAX) 0.4 mg Take 1 capsule by mouth two times a day. - losartan (COZAAR) 100 mg tablet Take 1 tablet by mouth once daily. - diphenoxylate-atropine (LOMOTIL) 2.5-0.025 mg per tablet Take 1 tablet by mouth two times a day as needed for diarrhea for up to 180 days. - omeprazole (PRILOSEC) 20 mg capsule TAKE 1 CAPSULE DAILY - DUPIXENT PEN 300 mg/2 mL pen Inject 300 mg subcutaneously every [address] Evans Sommer - Cholecalciferol, Vitamin D3, 50 mcg (2,000 unit) cap Take by mouth once daily. - ASPIRIN 81 MG TAB Take one(1) tablet daily. Bombsight Specialist: Therapy (PT/OT/Speech/Resp) ID: [id number] 09/17/2024 1:07 PM Author: MORRO DURHAM Signed by MORRO DURHAM PT on 09/17/2024 at 1:07 PM Document text: Program_ID:[id number] Access Code: [email or web address] URL: [email or web address] Date: 09-17-2024 Prepared By: Morro Durham Program Notes Exercises - Walking - 1-2 x daily - 7 x weekly - sets - reps - Sit to Stand with Arms Crossed - 2 x daily - 7 x weekly - 2-3 sets - 8-10 reps - Standing Hip Abduction with Counter Support - 2 x daily - 7 x weekly - 2-3 sets - 8-10 reps - Heel Raises with Counter Support - 2 x daily - 7 x weekly - 2 sets - 10-15 reps - Toe Raises with Counter Support - 2 x daily - 7 x weekly - 2 sets - 10-15 reps [facility] THERAPY NTon 09-17-2024 THERAPY NT HNO ID: [id number] Author: MORRO DURHAM PT Service: ? Author Type: Physical Therapist Type: Therapy (PT/OT/Speech/Resp) Filed: 09/17/2024 13:07 Note Text: Program_ID:[id number] Access Code: [email or web address] URL: [email or web address] Date: 09-17-2024 Prepared By: Morro Durham Program Notes Exercises - Walking - 1-2 x daily - 7 x weekly - sets - reps - Sit to Stand with Arms Crossed - 2 x daily - 7 x weekly - 2-3 sets - 8-10 reps - Standing Hip Abduction with Counter Support - 2 x daily - 7 x weekly - 2-3 sets - 8-10 reps - Heel Raises with Counter Support - 2 x daily - 7 x weekly - 2 sets - 10-15 reps - Toe Raises with Counter Support - 2 x daily - 7 x weekly - 2 sets - 10-15 reps [facility] CNOVon 09-02-2024 CNOV Office Visit (FAMPWS ) -- SANTOS MOREL ([id number]) 1940 M Date Time Provider Department 09/02/24 11:20 AM YVAN RAHMAN During your visit today, we recorded the following information about you: Temperature Pulse Respiration Blood pressure 98.8 degrees 111/minute 18/minute 102/62 Weight 84.4 kg Yvan Rahman MD 09/02/2024 12:46 PM Signed Chief Complaint Patient presents with: Hospital F/U HPI Santos Morel is a 84 year old male who presents here today for Hospital Discharge Follow up Patient was admitted to [facility] on 08/19/2024 and Discharged in 08/23/2024 Viral sepsis secondary to norovirus. Patient was hypoxic upon arrival O2 sat in the 80's, also tachyneic, tachycardic also retaining urine, patient tested and was positive for norovirus. TSH levels elevated so synthroid was decreased to 150 mg daily. indicated that they reduced the Thyroid medication due to high heart rate. His TH was 0.069. with hx of papillary thyroid cancer goal is to keep him between 0.1-0.5 Also given melatonin for sleep. indicated that this is not helping Patent also taking OTC Magnesium Gyl 150 mg once a day. FBS today 245: had a bowel of shredded wheat with sugar Diarrhea has stopped. Appetite is still down and feels. Is getting around with a walker but feels weak and run down. Past medical history, appointments, medications, allergies reviewed. Previous Medical History PAST MEDICAL HISTORY Diagnosis Date Abnormal CT of liver 07/07/2018 2017: suspected cirrhosis. Saw Dr. Rocha [facility] who felt this was not cirrhosis. Actinic keratosis 03/06/2007 Benign non-nodular prostatic hyperplasia with lower urinary tract symptoms 03/16/2015 History of BPH. takes flomax at home. Voiding without difficulty Plan; - resume flomax 09/29/2013 - voiding Calculus of kidney 02/11/2007 Contact dermatitis and other eczema, due to unspecified cause 02/11/2007 Bilateral metacarpals, elbow - mild Controlled type 2 diabetes mellitus without complication, without long-term current use of insulin (HCC) 03/05/2015 Deviated nasal septum 06/15/2009 Diabetic eye exam (HCC) 08/27/2014 Last done: 02/13/18 No Retinopathy Diverticulosis of large intestine 02/11/2007 Finding on Colonoscopy 2000 Elevated C-reactive protein (CRP) 08/27/2007 Elevated prostate specific antigen (PSA) 03/16/2015 Essential hypertension 03/05/2015 Family history of ischemic heart disease 02/11/2007 Father age 54 [place] Gastroesophageal reflux disease without esophagitis 03/05/2015 History of kidney stones 05/19/2014 History of lung cancer 01/20/2021 Right upper lobe: Dx 2014: Was Seeing Dr. Maria: Adenocarcinoma Stage IB, Refused chemo. Released (01/07/2019) Hypomagnesemia 06/30/2019 Internal hemorrhoids without mention of complication Living will in place 08/02/2021 DPA: (Lisa) Lung cancer, upper lobe (HCC) 08/21/13: Right. NSCLC. Neg EBUS staging of mediastinum. Malignant neoplasm of upper lobe of right lung (HCC) 03/16/[address] Maria: Adenocarcinoma Stage IB, Refused chemo. Malignant neoplasm of upper lobe of right lung (HCC) 03/16/2015 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 Maria: Adenocarcinoma Stage IB, Refused chemo. 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 Carrion, [facility], Stapedectomy Upper back pain on left side 03/16/2015 VTE Prophylaxis 09/29/2013 The pt was on Lovenox 40mg SC daily and SCD for VTE prophylaxis. No signs or symptoms of DVT/PE. The patient is at High risk for VTE. Plan: - KATIE - Encourage continued ambulation . Previous Surgical History PAST SURGICAL HISTORY Procedure Laterality Date CAROTID ULTRASOUND BILATERAL COLONOSCOPY FLX DX W/COLLJ SPEC WHEN PFRMD 2000 Colonoscopy COLONOSCOPY FLX DX W/COLLJ SPEC WHEN PFRMD 11/27/07 PAST SURGICAL HISTORY OF 09/28/2013 Rt upper lung lobectomy for CA RPR 1ST FEM HRNA ANY AGE REDUCIBLE STAPEDECTOMY/STAPEDOTOMY Left Ear STRESS (SPECT) 2004? Treadmill Stress Test, [place] STRESS TEST 07/08/2013 NL Family History FAMILY HISTORY Problem Relation Age of Onset Breast Cancer Mother age 51 Heart Father [place] age 54 Diabetes Sister Heart also Breast Cancer Sister Lung Cancer Sister None Sister None Brother Patient Allergies ALLERGIES Allergen Reactions Penicillins Unknown Not sure he has allergy Current Medications Current Outpatient Medications on File Prior to Visit Medication Sig levothyroxine (SYNTHROID) 175 mcg tablet Take 1 tablet by mouth once daily. Sat-Sat and two on Saturday a (more content not included)... Normal [facility] CNPNon 09-02-2024 CNPN Telephone (FAMPWS) -- ADRIELSANTOS Kareem ([id number]) 1940 Date Time Provider Department 09/02/24 YVAN RAHMAN [facility] During your visit today, we recorded the following information about you: Argentina Cunningham RN 09/02/2024 1:18 PM Signed phoned to report pt saw Dr. Rahman today and doctor was going to send a cough medicine that won't affect BP to [facility] for patient but it is not there. reports doctor said patient could try coricedin or doctor could send Rx for another one that starts with the letter B. thinks doctor may have forgotten to send it to pharmacy. Please advise and phone with reply. [phone] Yvan Rahman MD 09/02/2024 5:09 PM Signed Let know that I apologize because I did forget about this script. The following approved medication requests have been transmitted electronically. Requested Prescriptions Signed Prescriptions Disp Refills Benzonatate 200 mg capsule 45 capsule 1 Sig: Take 1 capsule by mouth three times a day as needed. Authorizing Provider: YVAN RAHMAN MD James, Roxanne, MA 09/02/2024 6:16 PM Signed Patient notified and voiced understanding.Fletcher MA Allergies As of Date: 09/02/2024 Noted Allergy Reaction PENICILLINS 05/27/2006 16 - Unknown Comments: Not sure he has allergy Date Reviewed: 09/02/2024 Reviewed by: Fletcher Parks MA - Fully Assessed Reason for Visit: Patient Question [9697] Order(s):Benzonatate 200 mg capsuleTake 1 capsule by mouth three times a day as needed.Disp: 45 capsuleRfl: 1 Prescriptions as of 09/02/2024 - Magnesium Glycinate 100 mg tab Take 1.5 tablets by mouth once daily. - Benzonatate 200 mg capsule Take 1 capsule by mouth three times a day as needed. - levothyroxine (SYNTHROID) 175 mcg tablet Take 1 tablet by mouth once daily. Sat-Sat and two on Saturday and Saturday - pioglitazone (ACTOS) 30 mg tablet Take 1 tablet by mouth once daily. - pravastatin (PRAVACHOL) 40 mg tablet Take 1 tablet by mouth daily at bedtime. - glimepiride (AMARYL) 2 mg tablet Take 1 tablet by mouth two times a day with meals. - metFORMIN ER (GLUCOPHAGE XR) 500 mg 24 hr tablet TAKE 2 TABLETS BY MOUTH ONE TIME DAILY 12 HOURS APART FROM JANUMET - SITagliptin-metFORMIN (JANUMET XR) 100-1,000 mg TM24 Take 1 tablet by mouth once daily. - tamsulosin (FLOMAX) 0.4 mg Take 1 capsule by mouth two times a day. - losartan (COZAAR) 100 mg tablet Take 1 tablet by mouth once daily. - diphenoxylate-atropine (LOMOTIL) 2.5-0.025 mg per tablet Take 1 tablet by mouth two times a day as needed for diarrhea for up to 180 days. - omeprazole (PRILOSEC) 20 mg capsule TAKE 1 CAPSULE DAILY - DUPIXENT PEN 300 mg/2 mL pen Inject 300 mg subcutaneously every [address] Evans Sommer - Cholecalciferol, Vitamin D3, 50 mcg (2,000 unit) cap Take by mouth once daily. - ASPIRIN 81 MG TAB Take one(1) tablet daily. Problem List As Of Date 09/02/2024 Noted Resolved DIABETES MELLITUS TYPE II UNCONTR UNCOMPL [IMO0*02/11/2007 03/03/2007 CALCULUS OF KIDNEY [N20.0] 02/11/2007 02/11/2007 Unspecified hearing loss [H91.90] 02/11/2007 Contact dermatitis and other eczema, due to uns*02/11/2007 Family history of ischemic heart disease [Z82.4*02/11/2007 Diverticulosis of large intestine [K57.30] 02/11/2007 Actinic keratosis [L57.0] 03/06/2007 OVERWEIGHT [E66.9] 03/06/2007 Elevated C-reactive protein (CRP) [R79.82] 08/27/2007 Deviated nasal septum [J34.2] 06/15/2009 Palpitations [R00.2] 07/10/2013 Right VATS upper lobectomy [C34.10] 01/20/2021 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] 10/09/2013 History of kidney stones [Z87.442] 05/19/2014 Diabetic eye exam (HCC) [Z01.00, E11.9] 08/27/2014 Disorder of prostate [N42.9] 08/27/2014 Controlled type 2 diabetes mellitus without com*03/05/2015 Mixed hyperlipidemia [E78.2] 03/05/2015 Essential hypertension [I10] 03/05/2015 Gastroesophageal reflux disease without esophag*03/05/2015 Benign non-nodular prostatic hyperplasia with l*03/16/2015 Upper back pain on left side [M54.9] 03/16/2015 Elevated prostate specific antigen (PSA) [R97.2*03/16/2015 Malignant neoplasm of upper lobe of right lung *03/16/2015 01/20/2021 Medicare annual wellness visit, subsequent [Z00*06/14/[address] of liver [R93.2] 07/07/2018 Hypomagnesemia [E83.42] 06/30/2019 Medication management [Z79.899] 07/05/2020 History of lung cancer [Z85.118] 01/20/2021 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 Normal [facility] CNOVon 08-28-2024 CNOV Office Visit (FAMPWS ) -- SANTOS MOREL ([id number]) 1940 M Date Time Provider Department 08/28/24 10:00 AM BERNICE MAIER During your visit today, we recorded the following information about you: Pulse Blood pressure Weight 103/minute 123/74 85 kg Bernice Maier, STAFFING ASSISTANT.GRAVITY PROSPECTING OPERATOR HELPER 08/28/2024 2:24 PM Signed Chief Complaint Patient presents with: Hospital F/U HPI Santos Morel is a 84 year old male who presents here today for Above Complaints. Patient presents for hospital follow up for norovirus. Patient was in [facility] for norovirus with sepsis from 08/19 to 08/23. Patient reports he continues to be fatigued and has developed a cough. Denies fever, chills, CP. Reports SOB with exertion. Reports he continues to have weakness and be generally fatigued. Past medical history, appointments, medications, allergies reviewed. Previous Medical History PAST MEDICAL HISTORY Diagnosis Date Abnormal CT of liver 07/07/2018 2017[facility]. Actinic keratosis 03/06/2007 Benign non-nodular prostatic hyperplasia with lower urinary tract symptoms 03/16/2015 History of BPH. takes flomax at home. Voiding without difficulty Plan; - resume flomax 09/29/2013 - voiding Calculus of kidney 02/11/2007 Contact dermatitis and other eczema, due to unspecified cause 02/11/2007 Bilateral metacarpals, elbow - mild Controlled type 2 diabetes mellitus without complication, without long-term current use of insulin (HCC) 03/05/2015 Deviated nasal septum 06/15/2009 Diabetic eye exam ([facility]) 08/27/2014 Last done: 02/13/18 No Retinopathy Diverticulosis of large intestine 02/11/2007 Finding on Colonoscopy 2000 Elevated C-reactive protein (CRP) 08/27/2007 Elevated prostate specific antigen (PSA) 03/16/2015 Essential hypertension 03/05/2015 Family history of ischemic heart disease 02/11/2007 Father age 54 [place] Gastroesophageal reflux disease without esophagitis 03/05/2015 History of kidney stones 05/19/2014 History of lung cancer 01/20/2021 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 Released (01/07/2019) Hypomagnesemia 06/30/2019 Internal hemorrhoids without mention of complication Living will in place 08/02/2021 DPA: (Lisa) Lung cancer, upper lobe (HCC) 08/21/13: Right. NSCLC. Neg EBUS staging of mediastinum. Malignant neoplasm of upper lobe of right lung (HCC) 03/16/[address] Maria: Adenocarcinoma Stage IB, Refused chemo. Malignant neoplasm of upper lobe of right lung (HCC) 03/16/2015 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 Maria: Adenocarcinoma Stage IB, Refused chemo. 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 Carrion, [facility], Stapedectomy Upper back pain on left side 03/16/2015 VTE Prophylaxis 09/29/2013 The pt was on Lovenox 40mg SC daily and SCD for VTE prophylaxis. No signs or symptoms of DVT/PE. The patient is at High risk for VTE. Plan: - KATIE - Encourage continued ambulation . Previous Surgical History PAST SURGICAL HISTORY Procedure Laterality Date CAROTID ULTRASOUND BILATERAL COLONOSCOPY FLX DX W/COLLJ SPEC WHEN PFRMD 2000 Colonoscopy COLONOSCOPY FLX DX W/COLLJ SPEC WHEN PFRMD 11/27/07 PAST SURGICAL HISTORY OF 09/28/2013 Rt upper lung lobectomy for CA RPR 1ST FEM HRNA ANY AGE REDUCIBLE STAPEDECTOMY/STAPEDOTOMY Left Ear STRESS (SPECT) 2004? Treadmill Stress Test, [place] STRESS TEST 07/08/2013 NL Family History FAMILY HISTORY Problem Relation Age of Onset Breast Cancer Mother age 51 Heart Father [place] age 54 Diabetes Sister Heart also Breast Cancer Sister Lung Cancer Sister None Sister None Brother Patient Allergies ALLERGIES Allergen Reactions Penicillins Unknown Not sure he has allergy Current Medications Current Outpatient Medications on File Prior to Visit Medication Sig levothyroxine (SYNTHROID) 175 mcg tablet Take 1 tablet by mouth once daily. Sat-Sat and two on Saturday and Saturday pioglitazone (ACTOS) 30 mg tablet Take 1 tablet by mouth once daily. pravastatin (PRAVACHOL) 40 mg tablet Take 1 tablet by mouth daily at bedtime. glimepiride (AMARYL) 2 mg tablet Take 1 tablet by mouth two times a day with meals. metFORMIN ER (GLUCOPHAGE XR) 500 mg 24 hr tablet TAKE 2 TABLETS BY MOUTH ONE TIME DAILY 12 HOURS APART FROM JANUMET SITagliptin-metFORMIN (JANUMET XR) 100-1,000 mg TM24 Take 1 tablet by mouth once daily. tamsulosin (FLOMAX) 0.4 mg Take 1 capsule by mouth two times a day. losartan (COZAAR) 100 mg tablet Ta (more content not included)... Normal [facility] HEMOGLOBIN A1C (POC)on 08-28 HbA1c (Bld) [Mass fraction] 8.2 % Abnormal 4.3 - 5.6 % [facility] Comment on above: Location:[address], [place], [address] Point of care (POC) Hemoglobin A1c (HGBA1C) testing is intended to assess glucose control and provide a management tool for patients known to have diabetes and their healthcare providers. Target HGBA1C levels may depend on specific clinical circumstances. POC HGBA1C is not intended for use as a diagnostic or screening test; laboratory-based testing should be used for diagnostic purposes. The following information is supplemental and may not be applicable to specific diabetes management situations: The POC device care director provides a normal range of 4.2% to 6.5% for the HGBA1C POC test. However, the [place] [employer] guidelines indicate that patients with HGBA1C in the range of 5.7% to 6.4% are at increased risk for development of diabetes and that intervention by lifestyle modification may be beneficial. A HGBA1C level greater than or equal to 6.5% is considered diagnostic of diabetes, pending confirmatory testing. Use of HGBA1C testing to evaluate glucose control may not be appropriate for patients with hemoglobin variants or other conditions (e.g. anemia) that alter red blood cell lifespan. Interpretation and review of laboratory results Abnormal [facility] XR CHEST 2V FRONTAL/LATon XR CHEST 2V FRONTAL/LAT * * *Final Report* * * DATE OF EXAM: Aug 28 2024 10:50AM WOX [id number] - XR CHEST 2V FRONTAL/LAT / PROCEDURE REASON: multiple diagnoses * * * * Physician Interpretation * * * * EXAMINATION: CHEST RADIOGRAPH (2 VIEW FRONTAL and LATERAL) CLINICAL HISTORY: Acute cough Hospital discharge follow-up MQ: XC2_6 EXAM DATE/TIME: 08/28/2024 10:50 AM COMPARISON: 04/08/2023 RESULT: Lines, tubes, and devices: None. Lungs and pleura: * Postsurgical changes in the RIGHT hemithorax with some volume loss again noted * Increased opacification RIGHT apical region noted. No consolidation. No lung mass. No pleural effusion. No pneumothorax. Cardiomediastinal silhouette: Normal cardiomediastinal silhouette. Bones and soft tissues: Unremarkable. IMPRESSION: Some increased opacification RIGHT apical region. Etiology uncertain. Could relate to infiltrate or atelectasis. However follow-up chest x-ray recommended to weeks. Child Care Team Lead: CEZAR Transcribe Date/Time: Aug 28 2024 11:27A Dictated by : JENN AVERY DO This examination was interpreted and the report reviewed and electronically signed by: JENN AVERY DO on Aug 28 2024 11:29AM EST [id number] Normal [facility] XR Chest PA and Lateralon IMPRESSION: Some increased opacification RIGHT apical region. Etiology uncertain. Could relate to infiltrate or atelectasis. However follow-up chest x-ray recommended to weeks. Child Care Team Lead: CEZAR Transcribe Date/Time: Aug 28 2024 11:27A Dictated by : JENN AVERY DO This examination was interpreted and the report reviewed and electronically signed by: JENN AVERY DO on Aug 28 2024 11:29AM EST DIVISION OF RADIOLOGY * * *Final Report* * * DATE OF EXAM: Aug 28 2024 10:50AM WOX [id number] - XR CHEST 2V FRONTAL/LAT / PROCEDURE REASON: multiple diagnoses * * * * Physician Interpretation * * * * EXAMINATION: CHEST RADIOGRAPH (2 VIEW FRONTAL & LATERAL) CLINICAL HISTORY: Acute cough Hospital discharge follow-up MQ: XC2_6 EXAM DATE/TIME: 08/28/2024 10:50 AM COMPARISON: 04/08/2023 RESULT: Lines, tubes, and devices: None. Lungs and pleura: * Postsurgical changes in the RIGHT hemithorax with some volume loss again noted * Increased opacification RIGHT apical region noted. No consolidation. No lung mass. No pleural effusion. No pneumothorax. Cardiomediastinal silhouette: Normal cardiomediastinal silhouette. Bones and soft tissues: Unremarkable. DIVISION OF RADIOLOGY Provider, Sharmin Kedar [facility] - 08/28/2024 * * *Final Report* * * DATE OF EXAM: Aug 28 2024 10:50AM WOX [id number] - XR CHEST 2V FRONTAL/LAT / PROCEDURE REASON: multiple diagnoses * * * * Physician Interpretation * * * * EXAMINATION: CHEST RADIOGRAPH (2 VIEW FRONTAL & LATERAL) CLINICAL HISTORY: Acute cough Hospital discharge follow-up MQ: XC2_6 EXAM DATE/TIME: 08/28/2024 10:50 AM COMPARISON: 04/08/2023 RESULT: Lines, tubes, and devices: None. Lungs and pleura: * Postsurgical changes in the RIGHT hemithorax with some volume loss again noted * Increased opacification RIGHT apical region noted. No consolidation. No lung mass. No pleural effusion. No pneumothorax. Cardiomediastinal silhouette: Normal cardiomediastinal silhouette. Bones and soft tissues: Unremarkable. IMPRESSION IMPRESSION: Some increased opacification RIGHT apical region. Etiology uncertain. Could relate to infiltrate or atelectasis. However follow-up chest x-ray recommended to weeks. Child Care Team Lead: PSCB Transcribe Date/Time: Aug 28 2024 11:27A Dictated by : JENN AVERY DO This examination was interpreted and the report reviewed and electronically signed by: JENN AVERY DO on Aug 28 2024 11:29AM EST [facility] Radiology Study observation (narrative) [facility] XR Chest PA and LateralOrder ed By: Ccf Provider on 08-28-2024 [facility] Basic Metabolic Profile (BMP )on 08-27-2024 BUN Normal - [facility] Comment on above: Result Comment: Canc elled via OM: Order cancelled - Patient discharged Performed By: #### L 500.2500, L100.0100 #### [facility] [address] [place], [address] BUN/CRE Normal 10-20 [facility] Comment on above: Result Comment: Canc elled via OM: Order cancelled - Patient discharged Performed By: #### L 500.2500, L100.0100 #### [facility] [address] [place], [address] Calcium Normal 7.6-11.0 [facility] Comment on above: Result Comment: Canc elled via OM: Order cancelled - Patient discharged Performed By: #### L 500.2500, L100.0100 #### [facility] [address] [place], [address] CL Normal 98-108 [facility] Comment on above: Result Comment: Canc elled via OM: Order cancelled - Patient discharged Performed By: #### L 500.2500, L100.0100 #### [facility] [address] [place], [address] CO2 Normal 21.0-32.0 [facility] Comment on above: Result Comment: Canc elled via OM: Order cancelled - Patient discharged Performed By: #### L 500.2500, L100.0100 #### [facility] [address] [place], [address] CREAT,SERUM Normal 0.70-1.20 [facility] Comment on above: Result Comment: Canc elled via OM: Order cancelled - Patient discharged Performed By: #### L 500.2500, L100.0100 #### [facility] [address] [place], [address] eGFR Normal >60 [facility] Comment on above: Result Comment: Canc elled via OM: Order cancelled - Patient discharged Performed By: #### L 500.2500, L100.0100 #### [facility] [address] [place], [address] GAP Normal 5-15 [facility] Comment on above: Result Comment: Canc elled via OM: Order cancelled - Patient discharged Performed By: #### L 500.2500, L100.0100 #### [facility] [address] [place], [address] GLU Normal 70-99 [facility] Comment on above: Result Comment: Canc elled via OM: Order cancelled - Patient discharged Performed By: #### L 500.2500, L100.0100 #### [facility] [address] [place], [address] Potassium Normal 3.3-5.1 [facility] Comment on above: Result Comment: Canc elled via OM: Order cancelled - Patient discharged Performed By: #### L 500.2500, L100.0100 #### [facility] [address] [place], [address] Basic Metabolic Profile (BMP) Normal 133-145 [facility] Comment on above: Result Comment: Canc elled via OM: Order cancelled - Patient discharged Performed By: #### L 500.2500, L100.0100 #### [facility] [address] [place], [address] CBC W/Diff, Automatedon 04-1 Absolute Neut Normal 2.0-7.7 [facility] Comment on above: Result Comment: Canc elled via OM: Order cancelled - Patient discharged Performed By: #### L 500.2500, L100.0100 #### [facility] [address] [place], [address] HCT Normal 40-54 [facility] Comment on above: Result Comment: Canc elled via OM: Order cancelled - Patient discharged Performed By: #### L 500.2500, L100.0100 #### [facility] [address] [place], [address] HGB Normal 13.0-16.5 [facility] Comment on above: Result Comment: Canc elled via OM: Order cancelled - Patient discharged Performed By: #### L 500.2500, L100.0100 #### [facility] [address] [place], [address] MCH Normal 27.0-32.0 [facility] Comment on above: Result Comment: Canc elled via OM: Order cancelled - Patient discharged Performed By: #### L 500.2500, L100.0100 #### [facility] [address] [place], [address] MCHC Normal 32-36 [facility] Comment on above: Result Comment: Canc elled via OM: Order cancelled - Patient discharged Performed By: #### L 500.2500, L100.0100 #### [facility] [address] [place], [address] MCV Normal 80-94 [facility] Comment on above: Result Comment: Canc elled via OM: Order cancelled - Patient discharged Performed By: #### L 500.2500, L100.0100 #### [facility] [address] [place], [address] NEUT% Normal 47-70 [facility] Comment on above: Result Comment: Canc elled via OM: Order cancelled - Patient discharged Performed By: #### L 500.2500, L100.0100 #### [facility] [address] [place], [address] PLT Normal 150-450 [facility] Comment on above: Result Comment: Canc elled via OM: Order cancelled - Patient discharged Performed By: #### L 500.2500, L100.0100 #### [facility] [address] [place], [address] RBC Normal 4.6-6.2 [facility] Comment on above: Result Comment: Canc elled via OM: Order cancelled - Patient discharged Performed By: #### L 500.2500, L100.0100 #### [facility] [address] [place], [address] RDW CV Normal 11.6-14.6 [facility] Comment on above: Result Comment: Canc elled via OM: Order cancelled - Patient discharged Performed By: #### L 500.2500, L100.0100 #### [facility] [address] [place], [address] RDW SD Normal 35.1-43.9 [facility] Comment on above: Result Comment: Canc elled via OM: Order cancelled - Patient discharged Performed By: #### L 500.2500, L100.0100 #### [facility] [address] [place], [address] WBC Normal 4.4-11.0 [facility] Comment on above: Result Comment: Canc elled via OM: Order cancelled - Patient discharged Performed By: #### L 500.2500, L100.0100 #### [facility] [address] [place], [address] Basic Metabolic Profile (BMP )on 08-26-2024 BUN Normal 4-19 [facility] Comment on above: Result Comment: Canc elled via OM: Order cancelled - Patient discharged Performed By: #### L 500.2500, L100.0100 #### [facility] [address] [place], [address] BUN/CRE Normal 10-20 [facility] Comment on above: Result Comment: Canc elled via OM: Order cancelled - Patient discharged Performed By: #### L 500.2500, L100.0100 #### [facility] [address] [place], [address] Calcium Normal 7.6-11.0 [facility] Comment on above: Result Comment: Canc elled via OM: Order cancelled - Patient discharged Performed By: #### L 500.2500, L100.0100 #### [facility] [address] [place], [address] CL Normal 98-108 [facility] Comment on above: Result Comment: Canc elled via OM: Order cancelled - Patient discharged Performed By: #### L 500.2500, L100.0100 #### [facility] [address] [place], [address] CO2 Normal 21.0-32.0 [facility] Comment on above: Result Comment: Canc elled via OM: Order cancelled - Patient discharged Performed By: #### L 500.2500, L100.0100 #### [facility] [address] [place], [address] CREAT,SERUM Normal 0.70-1.20 [facility] Comment on above: Result Comment: Canc elled via OM: Order cancelled - Patient discharged Performed By: #### L 500.2500, L100.0100 #### [facility] [address] [place], [address] eGFR Normal >60 [facility] Comment on above: Result Comment: Canc elled via OM: Order cancelled - Patient discharged Performed By: #### L 500.2500, L100.0100 #### [facility] [address] [place], [address] GAP Normal 5-15 [facility] Comment on above: Result Comment: Canc elled via OM: Order cancelled - Patient discharged Performed By: #### L 500.2500, L100.0100 #### [facility] [address] [place], [address] GLU Normal 70-99 [facility] Comment on above: Result Comment: Canc elled via OM: Order cancelled - Patient discharged Performed By: #### L 500.2500, L100.0100 #### [facility] [address] [place], [address] Potassium Normal 3.3-5.1 [facility] Comment on above: Result Comment: Canc elled via OM: Order cancelled - Patient discharged Performed By: #### L 500.2500, L100.0100 #### [facility] [address] [place], [address] Basic Metabolic Profile (BMP) Normal 133-145 [facility] Comment on above: Result Comment: Canc elled via OM: Order cancelled - Patient discharged Performed By: #### L 500.2500, L100.0100 #### [facility] [address] [place], [address] CBC W/Diff, Automatedon - Absolute Neut Normal 2.0-7.7 [facility] Comment on above: Result Comment: Canc elled via OM: Order cancelled - Patient discharged Performed By: #### L 500.2500, L100.0100 #### [facility] [address] [place], [address] HCT Normal 40-54 [facility] Comment on above: Result Comment: Canc elled via OM: Order cancelled - Patient discharged Performed By: #### L 500.2500, L100.0100 #### [facility] [address] [place], [address] HGB Normal 13.0-16.5 [facility] Comment on above: Result Comment: Canc elled via OM: Order cancelled - Patient discharged Performed By: #### L 500.2500, L100.0100 #### [facility] [address] [place], [address] MCH Normal 27.0-32.0 [facility] Comment on above: Result Comment: Canc elled via OM: Order cancelled - Patient discharged Performed By: #### L 500.2500, L100.0100 #### [facility] [address] [place], [address] MCHC Normal 32-36 [facility] Comment on above: Result Comment: Canc elled via OM: Order cancelled - Patient discharged Performed By: #### L 500.2500, L100.0100 #### [facility] [address] [place], [address] MCV Normal 80-94 [facility] Comment on above: Result Comment: Canc elled via OM: Order cancelled - Patient discharged Performed By: #### L 500.2500, L100.0100 #### [facility] [address] [place], [address] NEUT% Normal 47-70 [facility] Comment on above: Result Comment: Canc elled via OM: Order cancelled - Patient discharged Performed By: #### L 500.2500, L100.0100 #### [facility] [address] [place], [address] PLT Normal 150-450 [facility] Comment on above: Result Comment: Canc elled via OM: Order cancelled - Patient discharged Performed By: #### L 500.2500, L100.0100 #### [facility] [address] [place], [address] RBC Normal 4.6-6.2 [facility] Comment on above: Result Comment: Canc elled via OM: Order cancelled - Patient discharged Performed By: #### L 500.2500, L100.0100 #### [facility] [address] [place], [address] RDW CV Normal 11.6-14.6 [facility] Comment on above: Result Comment: Canc elled via OM: Order cancelled - Patient discharged Performed By: #### L 500.2500, L100.0100 #### [facility] [address] [place], [address] RDW SD Normal 35.1-43.9 [facility] Comment on above: Result Comment: Canc elled via OM: Order cancelled - Patient discharged Performed By: #### L 500.2500, L100.0100 #### [facility] [address] [place], [address] WBC Normal 4.4-11.0 [facility] Comment on above: Result Comment: Canc elled via OM: Order cancelled - Patient discharged Performed By: #### L 500.2500, L100.0100 #### [facility] [address] [place], [address] Basic Metabolic Profile (BMP )on 08-25-2024 BUN Normal 4-19 [facility] Comment on above: Result Comment: Canc elled via OM: Order cancelled - Patient discharged Performed By: #### L 500.2500, L100.0100 #### [facility] [address] [place], [address] BUN/CRE Normal 10-20 [facility] Comment on above: Result Comment: Canc elled via OM: Order cancelled - Patient discharged Performed By: #### L 500.2500, L100.0100 #### [facility] [address] [place], [address] Calcium Normal 7.6-11.0 [facility] Comment on above: Result Comment: Canc elled via OM: Order cancelled - Patient discharged Performed By: #### L 500.2500, L100.0100 #### [facility] [address] [place], [address] CL Normal 98-108 [facility] Comment on above: Result Comment: Canc elled via OM: Order cancelled - Patient discharged Performed By: #### L 500.2500, L100.0100 #### [facility] [address] [place], [address] CO2 Normal 21.0-32.0 [facility] Comment on above: Result Comment: Canc elled via OM: Order cancelled - Patient discharged Performed By: #### L 500.2500, L100.0100 #### [facility] [address] [place], [address] CREAT,SERUM Normal 0.70-1.20 [facility] Comment on above: Result Comment: Canc elled via OM: Order cancelled - Patient discharged Performed By: #### L 500.2500, L100.0100 #### [facility] [address] [place], [address] eGFR Normal >60 [facility] Comment on above: Result Comment: Canc elled via OM: Order cancelled - Patient discharged Performed By: #### L 500.2500, L100.0100 #### [facility] [address] [place], [address] GAP Normal 5-15 [facility] Comment on above: Result Comment: Canc elled via OM: Order cancelled - Patient discharged Performed By: #### L 500.2500, L100.0100 #### [facility] [address] [place], [address] GLU Normal 70-99 [facility] Comment on above: Result Comment: Canc elled via OM: Order cancelled - Patient discharged Performed By: #### L 500.2500, L100.0100 #### [facility] [address] [place], [address] Potassium Normal 3.3-5.1 [facility] Comment on above: Result Comment: Canc elled via OM: Order cancelled - Patient discharged Performed By: #### L 500.2500, L100.0100 #### [facility] [address] [place], [address] Basic Metabolic Profile (BMP) Normal 133-145 [facility] Comment on above: Result Comment: Canc elled via OM: Order cancelled - Patient discharged Performed By: #### L 500.2500, L100.0100 #### [facility] [address] [place], [address] CBC W/Diff, Automatedon 04-1 Absolute Neut Normal 2.0-7.7 [facility] Comment on above: Result Comment: Canc elled via OM: Order cancelled - Patient discharged Performed By: #### L 500.2500, L100.0100 #### [facility] [address] [place], [address] HCT Normal 40-54 [facility] Comment on above: Result Comment: Canc elled via OM: Order cancelled - Patient discharged Performed By: #### L 500.2500, L100.0100 #### [facility] [address] [place], [address] HGB Normal 13.0-16.5 [facility] Comment on above: Result Comment: Canc elled via OM: Order cancelled - Patient discharged Performed By: #### L 500.2500, L100.0100 #### [facility] [address] [place], [address] MCH Normal 27.0-32.0 [facility] Comment on above: Result Comment: Canc elled via OM: Order cancelled - Patient discharged Performed By: #### L 500.2500, L100.0100 #### [facility] [address] [place], [address] MCHC Normal 32-36 [facility] Comment on above: Result Comment: Canc elled via OM: Order cancelled - Patient discharged Performed By: #### L 500.2500, L100.0100 #### [facility] [address] [place], [address] MCV Normal 80-94 [facility] Comment on above: Result Comment: Canc elled via OM: Order cancelled - Patient discharged Performed By: #### L 500.2500, L100.0100 #### [facility] [address] [place], [address] NEUT% Normal 47-70 [facility] Comment on above: Result Comment: Canc elled via OM: Order cancelled - Patient discharged Performed By: #### L 500.2500, L100.0100 #### [facility] [address] [place], [address] PLT Normal 150-450 [facility] Comment on above: Result Comment: Canc elled via OM: Order cancelled - Patient discharged Performed By: #### L 500.2500, L100.0100 #### [facility] [address] [place], [address] RBC Normal 4.6-6.2 [facility] Comment on above: Result Comment: Canc elled via OM: Order cancelled - Patient discharged Performed By: #### L 500.2500, L100.0100 #### [facility] [address] [place], [address] RDW CV Normal 11.6-14.6 [facility] Comment on above: Result Comment: Canc elled via OM: Order cancelled - Patient discharged Performed By: #### L 500.2500, L100.0100 #### [facility] [address] [place], [address] RDW SD Normal 35.1-43.9 [facility] Comment on above: Result Comment: Canc elled via OM: Order cancelled - Patient discharged Performed By: #### L 500.2500, L100.0100 #### [facility] [address] [place], [address] WBC Normal 4.4-11.0 [facility] Comment on above: Result Comment: Canc elled via OM: Order cancelled - Patient discharged Performed By: #### L 500.2500, L100.0100 #### [facility] [address] [place], [address] Basic Metabolic Profile (BMP )on 08-24-2024 BUN Normal 4-19 [facility] Comment on above: Result Comment: Canc elled via OM: Order cancelled - Patient discharged Performed By: #### L 500.2500, L100.0100 #### [facility] [address] [place], [address] BUN/CRE Normal 10-20 [facility] Comment on above: Result Comment: Canc elled via OM: Order cancelled - Patient discharged Performed By: #### L 500.2500, L100.0100 #### [facility] [address] [place], [address] Calcium Normal 7.6-11.0 [facility] Comment on above: Result Comment: Canc elled via OM: Order cancelled - Patient discharged Performed By: #### L 500.2500, L100.0100 #### [facility] [address] [place], [address] CL Normal 98-108 [facility] Comment on above: Result Comment: Canc elled via OM: Order cancelled - Patient discharged Performed By: #### L 500.2500, L100.0100 #### [facility] [address] [place], [address] CO2 Normal 21.0-32.0 [facility] Comment on above: Result Comment: Canc elled via OM: Order cancelled - Patient discharged Performed By: #### L 500.2500, L100.0100 #### [facility] [address] [place], [address] CREAT,SERUM Normal 0.70-1.20 [facility] Comment on above: Result Comment: Canc elled via OM: Order cancelled - Patient discharged Performed By: #### L 500.2500, L100.0100 #### [facility] [address] [place], [address] eGFR Normal >60 [facility] Comment on above: Result Comment: Canc elled via OM: Order cancelled - Patient discharged Performed By: #### L 500.2500, L100.0100 #### [facility] [address] [place], [address] GAP Normal 5-15 [facility] Comment on above: Result Comment: Canc elled via OM: Order cancelled - Patient discharged Performed By: #### L 500.2500, L100.0100 #### [facility] [address] [place], [address] GLU Normal 70-99 [facility] Comment on above: Result Comment: Canc elled via OM: Order cancelled - Patient discharged Performed By: #### L 500.2500, L100.0100 #### [facility] [address] [place], [address] Potassium Normal 3.3-5.1 [facility] Comment on above: Result Comment: Canc elled via OM: Order cancelled - Patient discharged Performed By: #### L 500.2500, L100.0100 #### [facility] [address] [place], [address] Basic Metabolic Profile (BMP) Normal 133-145 [facility] Comment on above: Result Comment: Canc elled via OM: Order cancelled - Patient discharged Performed By: #### L 500.2500, L100.0100 #### [facility] [address] [place], [address] Bedside Glucoseon 08-24-2024 FINGERSTICK GLU 348 mg/dL High 74-106 [facility] Comment on above: Result Comment: SIRIA GUPTA OF PATIENT CARE PER NURSING PROTOCOL Performed By: #### L 501.080 #### [facility] [address] [place], [address] CBC W/Diff, Automatedon 04- Absolute Neut Normal 2.0-7.7 [facility] Comment on above: Result Comment: Canc elled via OM: Order cancelled - Patient discharged Performed By: #### L 500.2500, L100.0100 #### [facility] [address] [place], [address] HCT Normal 40-54 [facility] Comment on above: Result Comment: Canc elled via OM: Order cancelled - Patient discharged Performed By: #### L 500.2500, L100.0100 #### [facility] [address] [place], [address] HGB Normal 13.0-16.5 [facility] Comment on above: Result Comment: Canc elled via OM: Order cancelled - Patient discharged Performed By: #### L 500.2500, L100.0100 #### [facility] [address] [place], [address] MCH Normal 27.0-32.0 [facility] Comment on above: Result Comment: Canc elled via OM: Order cancelled - Patient discharged Performed By: #### L 500.2500, L100.0100 #### [facility] [address] [place], [address] MCHC Normal 32-36 [facility] Comment on above: Result Comment: Canc elled via OM: Order cancelled - Patient discharged Performed By: #### L 500.2500, L100.0100 #### [facility] [address] [place], [address] MCV Normal 80-94 [facility] Comment on above: Result Comment: Canc elled via OM: Order cancelled - Patient discharged Performed By: #### L 500.2500, L100.0100 #### [facility] [address] [place], [address] NEUT% Normal 47-70 [facility] Comment on above: Result Comment: Canc elled via OM: Order cancelled - Patient discharged Performed By: #### L 500.2500, L100.0100 #### [facility] [address] [place], [address] PLT Normal 150-450 [facility] Comment on above: Result Comment: Canc elled via OM: Order cancelled - Patient discharged Performed By: #### L 500.2500, L100.0100 #### [facility] [address] [place], [address] RBC Normal 4.6-6.2 [facility] Comment on above: Result Comment: Canc elled via OM: Order cancelled - Patient discharged Performed By: #### L 500.2500, L100.0100 #### [facility] [address] [place], [address] RDW CV Normal 11.6-14.6 [facility] Comment on above: Result Comment: Canc elled via OM: Order cancelled - Patient discharged Performed By: #### L 500.2500, L100.0100 #### [facility] [address] [place], [address] RDW SD Normal 35.1-43.9 [facility] Comment on above: Result Comment: Canc elled via OM: Order cancelled - Patient discharged Performed By: #### L 500.2500, L100.0100 #### [facility] [address] [place], [address] WBC Normal 4.4-11.0 [facility] Comment on above: Result Comment: Canc elled via OM: Order cancelled - Patient discharged Performed By: #### L 500.2500, L100.0100 #### [facility] [address] [place], [address] Culture, Blood (WB)on 2024 CUB Blood cultures x2, f rom two different sites No growth in 5 days. Normal [facility] Comment on above: Performed By: #### L 100.0100, L500.2500 #### [facility] [address] [place], [address] Absolute neutrophil countOrd ered By: Yadira Pruett on 08-23-2024 Neutrophils (Bld) [#/Vol] 6.3 10*3/uL 2.0-7.7 [facility] Anion gap in Serum or Plasma Ordered By: Yadira Pruett on 08-23-2024 Anion gap [Moles/Vol] 11 mmol/L 5-15 [facility] BUN/creatinine ratioOrdered By: Yadira Pruett on 08-23-2024 Urea nitrogen/Creatinine [Mass ratio] 21.0 mg/mg High - [facility] Basic Metabolic Profile (BMP )on 08-23-2024 BUN/CRE 21.0 RATIO High - [facility] Comment on above: Performed By: #### L 100.0100, L500.2500 #### [facility] [address] [place], [address] Calcium [Mass/Vol] 8.2 mg/dL Normal 7.6-11.0 [facility] Comment on above: Performed By: #### L 100.0100, L500.2500 #### [facility] [address] [place], [address] Chloride [Moles/Vol] 102 mmol/L Normal 98-108 [facility] Comment on above: Performed By: #### L 100.0100, L500.2500 #### [facility] [address] [place], [address] CO2 [Moles/Vol] 23.6 mmol/L Normal 21.0-32.0 [facility] Comment on above: Performed By: #### L 100.0100, L500.2500 #### [facility] [address] [place], [address] Creatinine [Mass/Vol] 0.99 mg/dL Normal 0.70-1.20 [facility] Comment on above: Performed By: #### L 100.0100, L500.2500 #### [facility] [address] [place], [address] ECRCL 61.27 ml/min Normal 50-250 [facility] Comment on above: Performed By: #### L 100.0100, L500.2500 #### [facility] [address] [place], [address] GAP 11 Normal 5-15 [facility] Comment on above: Performed By: #### L 100.0100, L500.2500 #### [facility] [address] [place], [address] GFR/1.73 sq M.predicted among non-blacks MDRD (S/P/Bld) [Vol rate/Area] 76 mL/min/{1.73_m2} Normal >60 [facility] Comment on above: Result Comment: mL/m in/1.73m2 CKD-EPI Creatinine Equation (2020) Performed By: #### L 100.0100, L500.2500 #### [facility] [address] [place], [address] Glucose [Mass/Vol] 235 mg/dL High 70-99 [facility] Comment on above: Performed By: #### L 100.0100, L500.2500 #### [facility] [address] [place], [address] Potassium [Moles/Vol] 4.0 mmol/L Normal 3.3-5.1 [facility] Comment on above: Performed By: #### L 100.0100, L500.2500 #### [facility] [address] [place], [address] Sodium [Moles/Vol] 136 mmol/L Normal 133-145 [facility] Comment on above: Performed By: #### L 100.0100, L500.2500 #### [facility] [address] [place], [address] Urea nitrogen [Mass/Vol] 21 mg/dL High 4-19 [facility] Comment on above: Performed By: #### L 100.0100, L500.2500 #### [facility] [address] [place], [address] Basophil percentageOrdered B y: Yadira Pruett on 08-23-2024 Basophils/100 WBC (Bld) 0.5 % 0-1 [facility] Bedside Glucoseon 08-23-2024 [facility] GLU 234 mg/dL High 74-106 [facility] Comment on above: Result Comment: SIRIA GUPTA OF PATIENT CARE PER NURSING PROTOCOL Performed By: #### L 100.0100, L500.2500 #### [facility] [address] [place], [address] CBC W/Diff, Automatedon 08-11 Absolute Lymph 1.10 X10 3/uL Normal 0.83-4.51 [facility] Comment on above: Performed By: #### L 100.0100, L500.2500 #### [facility] [address] [place], [address] Absolute Neut 6.3 X10 3/uL Normal 2.0-7.7 [facility] Comment on above: Performed By: #### L 100.0100, L500.2500 #### [facility] [address] [place], [address] Basophils/100 WBC (Bld) 0.5 % Normal 0-1 [facility] Comment on above: Performed By: #### L 100.0100, L500.2500 #### [facility] [address] [place], [address] Eosinophils/100 WBC (Bld) 1.2 % Normal 0-5 [facility] Comment on above: Performed By: #### L 100.0100, L500.2500 #### [facility] [facility] [address] [place], [address] Erythrocyte distribution width (RBC) [Ratio] 12.8 % Normal 11.6-14.6 [facility] Comment on above: Performed By: #### L 100.0100, L500.2500 #### [facility] [address] [place], [address] Hematocrit (Bld) [Volume fraction] 38.8 % Low 40-54 [facility] Comment on above: Performed By: #### L 100.0100, L500.2500 #### [facility] [address] [place], [address] Hemoglobin (Bld) [Mass/Vol] 13.0 g/dL Normal 13.0-16.5 [facility] Comment on above: Performed By: #### L 100.0100, L500.2500 #### [facility] [address] [place], [address] IG% 1.100 High 0.0-0.9 [facility] Comment on above: Result Comment: IG% - Immature Granulocytes (promyelocytes, myelocytes and metamyelocytes) > 1% indicates that a LEFT SHIFT is Present. Performed By: #### L 100.0100, L500.2500 #### [facility] [address] [place], [address] Lymphocytes/100 WBC (Bld) 13.3 % Low 19-41 [facility] Comment on above: Performed By: #### L 100.0100, L500.2500 #### [facility] [address] [place], [address] MCH (RBC) [Entitic mass] 28.3 pg Normal 27.0-32.0 [facility] Comment on above: Performed By: #### L 100.0100, L500.2500 #### [facility] [address] [place], [address] MCHC (RBC) [Mass/Vol] 33.5 g/dL Normal 32-36 [facility] Comment on above: Performed By: #### L 100.0100, L500.2500 #### [facility] [address] [place], [address] MCV (RBC) [Entitic vol] 84.5 fL Normal 80-94 [facility] Comment on above: Performed By: #### L 100.0100, L500.2500 #### [facility] [address] [place], [address] Monocytes/100 WBC (Bld) 8.5 % Normal 0-10 [facility] Comment on above: Performed By: #### L 100.0100, L500.2500 #### [facility] [address] [place], [address] Neutrophils/100 WBC (Bld) 75.4 % High 47-70 [facility] Comment on above: Performed By: #### L 100.0100, L500.2500 #### [facility] [address] [place], [address] Nucleated RBC (Bld) [#/Vol] 0 10*3/uL Normal 0-5 [facility] Comment on above: Performed By: #### L 100.0100, L500.2500 #### [facility] [address] [place], [address] Platelet mean volume (Bld) [Entitic vol] 9.7 fL Normal 6.2-12.0 [facility] Comment on above: Performed By: #### L 100.0100, L500.2500 #### [facility] [address] [place], [address] Platelets (Bld) [#/Vol] 194 10*3/uL Normal 150-450 [facility] Comment on above: Performed By: #### L 100.0100, L500.2500 #### [facility] [address] [place], [address] RBC (Bld) [#/Vol] 4.59 10*6/uL Low 4.6-6.2 [facility] Comment on above: Performed By: #### L 100.0100, L500.2500 #### [facility] [address] [place], [address] RDW SD 39.5 fl Normal 35.1-43.9 [facility] Comment on above: Performed By: #### L 100.0100, L500.2500 #### [facility] [address] [place], [address] WBC (Bld) [#/Vol] 8.3 10*3/uL Normal 4.4-11.0 [facility] Comment on above: Performed By: #### L 100.0100, L500.2500 #### [facility] [address] [place], [address] Carbon dioxide, total [Moles /volume] in Central venous bloodOrdered By: Yadira Pruett on 08-23-2024 CO2 [Moles/Vol] 23.6 mmol/L 21.0-32.0 [facility] Chloride assayOrdered By: Mak Pruett on 08-23-2024 Chloride [Moles/Vol] 102 mmol/L 98-108 [facility] Discharge Instructionon 08-11 Discharge Instruction [facility] Medical Records Department [address] [place] [address] Instructions for Home/Discharge Instructions 08/23/24 1205 MR#: [id number] Acct: [id number] Name: ADRIELSANTOS Kareem Rep #: [id number] : 1940 84 From: Yadira Pruett MD PCP: Dr. Yvan Rahman MD Status:ADM IN Discharge Instructions Diet Discharge Diet: 1999 Calorie Control Diet and Carb Control Diet DC O2, CPAP, BIPAP needs Home O2 Discharge instructions: No Dressing / Incision Discharge Activity: - (Increase activity as tolerated) Follow Up Care Test Results: Test results from this visit will be discussed in further detail at your follow-up appointment, if applicable. Discharge Plan Admission Admit Date/Time: 08/19/24 11:22 Primary Reason for Your Visit: Confusion, altered mental status Attending Provider: Yadira Pruett Primary Care Provider: Yvan Rahman Instructions Patient Instructions: Understanding Norovirus, ED Fall Prevention Additional Instructions / Restrictions: DISCHARGE INSTRUCTIONS PLEASE READ *Please take this with you to your next doctors appointment* -Your Synthroid has been decreased to 150 mcg daily given your thyroid levels on admission, and is very possible this may need further adjustments through your prescribing physician but at this time you will be discharged on 150 mcg of Synthroid, new prescription was sent to preferred pharmacy on file. Please follow-up closely with your primary care physician as they will need to recheck labs in the future for further adjustments - would recommend restarting your losartan on 08/26 - resume your home diabetes medications. Will be important that you follow-up with your primary care physician closely for monitoring and any further adjustments needed - You will continue your home tamsulosin, if you begin to have any trouble urinating in the future please contact your PCP/prescribing physician or proceed to the emergency department if you have any emergent needs -Please call your primary care provider's office upon discharge to schedule a hospital follow up within 1 week. -For any concerning signs or symptoms please call 911 or proceed to the nearest emergency department Discharge Orders/Prescriptions Prescriptions: New levothyroxine 150 mcg Tablet 150 mcg PO DAILY 30 Days Qty: 30 0RF Continued glimepiride 2 MG tablet 2 mg PO BID pravastatin 40 mg tablet 40 mg PO DAILY tamsulosin 0.4 mg capsule 0.4 mg PO BID pioglitazone 30 mg tablet 30 mg PO DAILY Janumet XR 100-1,000 mg tablet, ER multiphase 24 hr 1 tab PO DAILY aspirin [Adult Aspirin Regimen] 81 mg tablet,delayed release (DR/EC) 81 mg PO DAILY omeprazole 20 mg capsule,delayed release(DR/EC) 20 mg PO DAILY cholecalciferol (vitamin D3) 50 mcg (2,000 unit) capsule 50 mcg PO DAILY Held losartan 100 mg tablet 100 mg PO DAILY Hold Instructions: Resume on 08/26/24. Discontinued levothyroxine [Synthroid] 175 mcg tablet 175 mcg PO DAILY Referrals / Follow Up: Yvan Rahman MD [Primary Care Provider] - Within 1 Week Disposition Disposition (needs filled in before D/C Order can be placed): Home, Self Care 08/23/24 1234 Yadira Pruett MD CC: Dr. Yvan Rahman MD Signed Normal [facility] Eosinophil percentageOrdered By: Yadira Pruett on 08-23-2024 Eosinophils/100 WBC (Bld) 1.2 % 0-5 [facility] Erythrocyte distribution wid th (RBC) [Ratio]Ordered By: Yadira Pruett on 08-23-2024 Erythrocyte distribution width (RBC) [Entitic vol] 39.5 fL 35.1-43.9 [facility] Erythrocyte distribution wid th ratioOrdered By: Yadira Pruett on 08-23-2024 Erythrocyte distribution width (RBC) [Ratio] 12.8 % 11.6-14.6 [facility] Estimation of creatinine villa aranceOrdered By: Yadira Pruett on 08-23-2024 Estimated Creatinine Clearance Calc 61.27 ml/min 50-250 [facility] GFR/1.73 sq M.predicted elizabeth g non-blacks MDRD (S/P/Bld) [Vol rate/Area]Ordered By: Yadira Pruett on 08-23-2024 Estimated GFR (MDRD) Non-Af Amer 76 >60 [facility] Comment on above: mL/min/1.73m2 CKD-EP I Creatinine Equation (2020) [facility] deOrdered By: Yadira Pruett on 08-23-2024 Bedside Glucose (Misc Panel) 234 mg/dL High 74-106 [facility] Comment on above: MANAGEMENT OF PATIEN T CARE PER NURSING PROTOCOL Hematocrit Auto (Bld) [Volum e fraction]Ordered By: Yadira Pruett on 08-23-2024 Hematocrit (Bld) [Volume fraction] 38.8 % Low 40-54 [facility] Hemoglobin measurementOrdere d By: Yadira Pruett on 08-23-2024 Hemoglobin (Bld) [Mass/Vol] 13.0 g/dL 13.0-16.5 [facility] Immature granulocytes/100 WB C Auto (Bld)Ordered By: Yadira Pruett on 08-23-2024 Immature granulocytes/100 WBC (Bld) 1.100 % High 0.0-0.9 [facility] Comment on above: IG% - Immature Granu locytes (promyelocytes, myelocytes and metamyelocytes) > 1% indicates that a LEFT SHIFT is Present. Lymphocytes Auto (Unsp spec) [#/Vol]Ordered By: Yadira Pruett on 08-23-2024 Lymphocytes (Bld) [#/Vol] 1.10 10*3/uL 0.83-4.51 [facility] Lymphocytes/100 WBC Auto (Un sp spec)Ordered By: Yadira Pruett on 08-23-2024 Lymphocytes/100 WBC (Bld) 13.3 % Low 19-41 [facility] MCV (mean corpuscular volume ) determinationOrdered By: Yadira Pruett on 08-23-2024 MCV (RBC) [Entitic vol] 84.5 fL 80-94 [facility] Mean corpuscular hemoglobin (MCH) determinationOrdered By: Yadira Pruett on 08-23-2024 MCH (RBC) [Entitic mass] 28.3 pg 27.0-32.0 [facility] Mean corpuscular hemoglobin concentration (MCHC) determinationOrdered By: Yadira Pruett on 08-23-2024 MCHC (RBC) [Mass/Vol] 33.5 g/dL 32-36 [facility] Mean platelet volume determi nationOrdered By: Yadira Pruett on 08-23-2024 Platelet mean volume (Bld) [Entitic vol] 9.7 fL 6.2-12.0 [facility] Monocyte percentageOrdered B y: Yadira Pruett on 08-23-2024 Monocytes/100 WBC (Bld) 8.5 % 0-10 [facility] Neutrophil percentageOrdered By: Yadira Pruett on 08-23-2024 Neutrophils/100 WBC (Bld) 75.4 % High 47-70 [facility] Nucleated red blood cell per centageOrdered By: Yadira Pruett on 08-23-2024 Nucleated RBC/100 WBC (Bld) [Ratio] 0 % 0-5 [facility] Platelet countOrdered By: Mak Pruett on 08-23-2024 Platelets (Bld) [#/Vol] 194 10*3/uL 150-450 [facility] Potassium (Unsp spec) [Mass/ Vol]Ordered By: Yadira Pruett on 08-23-2024 Potassium [Moles/Vol] 4.0 mmol/L 3.3-5.1 [facility] RBC Auto (Bld) [#/Vol]Ordere d By: Yadira Pruett on 08-23-2024 RBC (Bld) [#/Vol] 4.59 10*6/uL Low 4.6-6.2 [facility] Respiratory Cultureon 2024 RESPC Mixed normal respira tory fer. No Haemophilus, Streptococcus pneumoniae, beta-hemolytic Streptococcus or Staphylococcus aureus isolated. Normal [facility] Comment on above: Performed By: #### L 500.2500, L100.0100 #### [facility] [address] [place], [place], [id number] Serum creatinine measurement (mass/volume)Ordered By: Yadira Pruett on 08-23-2024 Creatinine [Mass/Vol] 0.99 mg/dL 0.70-1.20 [facility] Serum glucose measurement (m ass/volume)Ordered By: Yadira Pruett on 08-23-2024 Glucose [Mass/Vol] 235 mg/dL High 70-99 [facility] Serum or plasma calcium jose urement (mass/volume)Ordered By: Yadira Pruett on 08-23-2024 Calcium [Mass/Vol] 8.2 mg/dL 7.6-11.0 [facility] Serum or plasma urea nitroge n measurement (mass/volume)Ordered By: Yadira Pruett on 08-23-2024 Urea nitrogen [Mass/Vol] 21 mg/dL High 4-19 [facility] Sodium levelOrdered By: Misha Pruett on 08-23-2024 Sodium [Moles/Vol] 136 mmol/L 133-145 [facility] White blood cell (WBC) count Ordered By: Yadira Pruett on 08-23-2024 WBC (Bld) [#/Vol] 8.3 10*3/uL 4.4-11.0 [facility] Basic Metabolic Profile (BMP )on 08-22-2024 BUN/CRE 20.6 RATIO High 10-20 [facility] Comment on above: Performed By: #### L 100.0100, L500.2500 #### [facility] [address] [place], [address] Calcium [Mass/Vol] 8.4 mg/dL Normal 7.6-11.0 [facility] Comment on above: Performed By: #### L 100.0100, L500.2500 #### [facility] [address] [place], [address] Chloride [Moles/Vol] 102 mmol/L Normal 98-108 [facility] Comment on above: Performed By: #### L 100.0100, L500.2500 #### [facility] [address] [place], [address] CO2 [Moles/Vol] 25.2 mmol/L Normal 21.0-32.0 [facility] Comment on above: Performed By: #### L 100.0100, L500.2500 #### [facility] [address] [place], [address] Creatinine [Mass/Vol] 1.02 mg/dL Normal 0.70-1.20 [facility] Comment on above: Performed By: #### L 100.0100, L500.2500 #### [facility] [address] [place], [address] ECRCL 59.47 ml/min Normal 50-250 [facility] Comment on above: Performed By: #### L 100.0100, L500.2500 #### [facility] [address] [place], [address] GAP 10 Normal 5-15 [facility] Comment on above: Performed By: #### L 100.0100, L500.2500 #### [facility] [address] [place], [address] GFR/1.73 sq M.predicted among non-blacks MDRD (S/P/Bld) [Vol rate/Area] 73 mL/min/{1.73_m2} Normal >60 [facility] Comment on above: Result Comment: mL/m in/1.73m2 CKD-EPI Creatinine Equation (2020) Performed By: #### L 100.0100, L500.2500 #### [facility] [address] [place], [address] Glucose [Mass/Vol] 192 mg/dL High 70-99 [facility] Comment on above: Performed By: #### L 100.0100, L500.2500 #### [facility] [address] [place], [address] Potassium [Moles/Vol] 3.7 mmol/L Normal 3.3-5.1 [facility] Comment on above: Performed By: #### L 100.0100, L500.2500 #### [facility] [address] [place], [address] Sodium [Moles/Vol] 137 mmol/L Normal 133-145 [facility] Comment on above: Performed By: #### L 100.0100, L500.2500 #### [facility] [address] [place], [address] Urea nitrogen [Mass/Vol] 21 mg/dL High 4-19 [facility] Comment on above: Performed By: #### L 100.0100, L500.2500 #### [facility] [address] [place], [address] Bedside Glucoseon 08-22-2024 FINGERSTICK GLU 245 mg/dL High 74-106 [facility] Comment on above: Result Comment: SIRIA GEMENT OF PATIENT CARE PER NURSING PROTOCOL Performed By: #### L 100.0100, L500.2500 #### [facility] [address] [place], [address] FINGERSTICK GLU 321 mg/dL High 74-106 [facility] Comment on above: Result Comment: SIRIA GEMENT OF PATIENT CARE PER NURSING PROTOCOL Performed By: #### L 100.0100, L500.2500 #### [facility] [address] [place], [address] FINGERSTICK GLU 303 mg/dL High 74-106 [facility] Comment on above: Result Comment: SIRIA GEMENT OF PATIENT CARE PER NURSING PROTOCOL Performed By: #### L 500.2500, L100.0100 #### [facility] [address] [place], [address] FINGERSTICK GLU 220 mg/dL High 74-106 [facility] Comment on above: Result Comment: SIRIA GEMENT OF PATIENT CARE PER NURSING PROTOCOL Performed By: #### L 100.0100, L500.2500 #### [facility] [address] [place], [address] CBC W/Diff, Automatedon 04- Absolute Lymph 0.88 X10 3/uL Normal 0.83-4.51 [facility] Comment on above: Performed By: #### L 100.0100, L500.2500 #### [facility] [address] [place], [address] Absolute Neut 8.4 X10 3/uL High 2.0-7.7 [facility] Comment on above: Performed By: #### L 100.0100, L500.2500 #### [facility] [address] [place], [address] Basophils/100 WBC (Bld) 0.2 % Normal 0-1 [facility] Comment on above: Performed By: #### L 100.0100, L500.2500 #### [facility] [address] [place], [address] Eosinophils/100 WBC (Bld) 0.6 % Normal 0-5 [facility] Comment on above: Performed By: #### L 100.0100, L500.2500 #### [facility] [address] [place], [address] Erythrocyte distribution width (RBC) [Ratio] 12.7 % Normal 11.6-14.6 [facility] Comment on above: Performed By: #### L 100.0100, L500.2500 #### [facility] [address] [place], [address] Hematocrit (Bld) [Volume fraction] 38.2 % Low 40-54 [facility] Comment on above: Performed By: #### L 100.0100, L500.2500 #### [facility] [address] [place], [address] Hemoglobin (Bld) [Mass/Vol] 12.9 g/dL Low 13.0-16.5 [facility] Comment on above: Performed By: #### L 100.0100, L500.2500 #### [facility] [address] [place], [address] IG% 0.600 Normal 0.0-0.9 [facility] Comment on above: Result Comment: IG% - Immature Granulocytes (promyelocytes, myelocytes and metamyelocytes) > 1% indicates that a LEFT SHIFT is Present. Performed By: #### L 100.0100, L500.2500 #### [facility] [address] [place], [address] Lymphocytes/100 WBC (Bld) 8.7 % Low 19-41 [facility] Comment on above: Performed By: #### L 100.0100, L500.2500 #### [facility] [address] [place], [address] MCH (RBC) [Entitic mass] 28.5 pg Normal 27.0-32.0 [facility] Comment on above: Performed By: #### L 100.0100, L500.2500 #### [facility] [address] [place], [address] MCHC (RBC) [Mass/Vol] 33.8 g/dL Normal 32-36 [facility] Comment on above: Performed By: #### L 100.0100, L500.2500 #### [facility] [address] [place], [address] MCV (RBC) [Entitic vol] 84.5 fL Normal 80-94 [facility] Comment on above: Performed By: #### L 100.0100, L500.2500 #### [facility] [address] [place], [address] Monocytes/100 WBC (Bld) 7.7 % Normal 0-10 [facility] Comment on above: Performed By: #### L 100.0100, L500.2500 #### [facility] [address] [place], [address] Neutrophils/100 WBC (Bld) 82.2 % High 47-70 [facility] Comment on above: Performed By: #### L 100.0100, L500.2500 #### [facility] [address] [place], [address] Nucleated RBC (Bld) [#/Vol] 0 10*3/uL Normal 0-5 [facility] Comment on above: Performed By: #### L 100.0100, L500.2500 #### [facility] [address] [place], [address] Platelet mean volume (Bld) [Entitic vol] 9.8 fL Normal 6.2-12.0 [facility] Comment on above: Performed By: #### L 100.0100, L500.2500 #### [facility] [address] [place], [address] Platelets (Bld) [#/Vol] 181 10*3/uL Normal 150-450 [facility] Comment on above: Performed By: #### L 100.0100, L500.2500 #### [facility] [address] [place], [address] RBC (Bld) [#/Vol] 4.52 10*6/uL Low 4.6-6.2 [facility] Comment on above: Performed By: #### L 100.0100, L500.2500 #### [facility] [address] [place], [address] RDW SD 38.8 fl Normal 35.1-43.9 [facility] Comment on above: Performed By: #### L 100.0100, L500.2500 #### [facility] [address] [place], [address] WBC (Bld) [#/Vol] 10.2 10*3/uL Normal 4.4-11.0 [facility] Comment on above: Performed By: #### L 100.0100, L500.2500 #### [facility] [address] [place], [address] Basic Metabolic Profile (BMP )on 08-21-2024 BUN/CRE 21.0 RATIO High 10-20 [facility] Comment on above: Performed By: #### L 500.2500, L100.0100 #### [facility] [address] [place], [address] Calcium [Mass/Vol] 8.1 mg/dL Normal 7.6-11.0 [facility] Comment on above: Performed By: #### L 500.2500, L100.0100 #### [facility] [address] [place], [address] Chloride [Moles/Vol] 102 mmol/L Normal 98-108 [facility] Comment on above: Performed By: #### L 500.2500, L100.0100 #### [facility] [address] [place], [address] CO2 [Moles/Vol] 21.1 mmol/L Normal 21.0-32.0 [facility] Comment on above: Performed By: #### L 500.2500, L100.0100 #### [facility] [address] [place], [address] Creatinine [Mass/Vol] 0.90 mg/dL Normal 0.70-1.20 [facility] Comment on above: Performed By: #### L 500.2500, L100.0100 #### [facility] [address] [place], [address] ECRCL 67.40 ml/min Normal 50-250 [facility] Comment on above: Performed By: #### L 500.2500, L100.0100 #### [facility] [address] [place], [address] GAP 11 Normal 5-15 [facility] Comment on above: Performed By: #### L 500.2500, L100.0100 #### [facility] [address] [place], [address] GFR/1.73 sq M.predicted among non-blacks MDRD (S/P/Bld) [Vol rate/Area] 85 mL/min/{1.73_m2} Normal >60 [facility] Comment on above: Result Comment: mL/m in/1.73m2 CKD-EPI Creatinine Equation (2020) Performed By: #### L 500.2500, L100.0100 #### [facility] [address] [place], [address] Glucose [Mass/Vol] 264 mg/dL High 70-99 [facility] Comment on above: Performed By: #### L 500.2500, L100.0100 #### [facility] [address] [place], [address] Potassium [Moles/Vol] 4.3 mmol/L Normal 3.3-5.1 [facility] Comment on above: Performed By: #### L 500.2500, L100.0100 #### [facility] [address] [place], [address] Sodium [Moles/Vol] 134 mmol/L Normal 133-145 [facility] Comment on above: Performed By: #### L 500.2500, L100.0100 #### [facility] [address] [place], [address] Urea nitrogen [Mass/Vol] 19 mg/dL Normal 4-19 [facility] Comment on above: Performed By: #### L 500.2500, L100.0100 #### [facility] [address] [place], [address] Bedside Glucoseon 08-21-2024 FINGERSTICK GLU 211 mg/dL High 74-106 [facility] Comment on above: Result Comment: SIRIA GEMENT OF PATIENT CARE PER NURSING PROTOCOL Performed By: #### L 500.2500, L100.0100 #### [facility] [address] [place], [address] FINGERSTICK GLU 269 mg/dL High 74-106 [facility] Comment on above: Result Comment: SIRIA GEMENT OF PATIENT CARE PER NURSING PROTOCOL Performed By: #### L 100.0100, L500.2500 #### [facility] [address] [place], [address] FINGERSTICK GLU 312 mg/dL High 74-106 [facility] Comment on above: Result Comment: SIRIA GEMENT OF PATIENT CARE PER NURSING PROTOCOL Performed By: #### L 100.0100, L500.2500 #### [facility] [address] [place], [address] FINGERSTICK GLU 257 mg/dL High 74-106 [facility] Comment on above: Result Comment: SIRIA GEMENT OF PATIENT CARE PER NURSING PROTOCOL Performed By: #### L 501.080 #### [facility] [facility] [address] [place], [address] CBC W/Diff, Automatedon 04- Absolute Lymph 0.73 X10 3/uL Low 0.83-4.51 [facility] Comment on above: Performed By: #### L 500.2500, L100.0100 #### [facility] [address] [place], [address] Absolute Neut 10.8 X10 3/uL High 2.0-7.7 [facility] Comment on above: Performed By: #### L 500.2500, L100.0100 #### [facility] [address] [place], [address] Basophils/100 WBC (Bld) 0.2 % Normal 0-1 [facility] Comment on above: Performed By: #### L 500.2500, L100.0100 #### [facility] [address] [place], [address] Eosinophils/100 WBC (Bld) 0.0 % Normal 0-5 [facility] Comment on above: Performed By: #### L 500.2500, L100.0100 #### [facility] [address] [place], [address] Erythrocyte distribution width (RBC) [Ratio] 12.9 % Normal 11.6-14.6 [facility] Comment on above: Performed By: #### L 500.2500, L100.0100 #### [facility] [address] [place], [address] Hematocrit (Bld) [Volume fraction] 36.8 % Low 40-54 [facility] Comment on above: Performed By: #### L 500.2500, L100.0100 #### [facility] [address] [place], [address] Hemoglobin (Bld) [Mass/Vol] 12.7 g/dL Low 13.0-16.5 [facility] Comment on above: Performed By: #### L 500.2500, L100.0100 #### [facility] [address] [place], [address] IG% 0.600 Normal 0.0-0.9 [facility] Comment on above: Result Comment: IG% - Immature Granulocytes (promyelocytes, myelocytes and metamyelocytes) > 1% indicates that a LEFT SHIFT is Present. Performed By: #### L 500.2500, L100.0100 #### [facility] [address] [place], [address] Lymphocytes/100 WBC (Bld) 5.8 % Low 19-41 [facility] Comment on above: Performed By: #### L 500.2500, L100.0100 #### [facility] [address] [place], [address] MCH (RBC) [Entitic mass] 28.6 pg Normal 27.0-32.0 [facility] Comment on above: Performed By: #### L 500.2500, L100.0100 #### [facility] [address] [place], [address] MCHC (RBC) [Mass/Vol] 34.5 g/dL Normal 32-36 [facility] Comment on above: Performed By: #### L 500.2500, L100.0100 #### [facility] [address] [place], [address] MCV (RBC) [Entitic vol] 82.9 fL Normal 80-94 [facility] Comment on above: Performed By: #### L 500.2500, L100.0100 #### [facility] [address] [place], [address] Monocytes/100 WBC (Bld) 7.6 % Normal 0-10 [facility] Comment on above: Performed By: #### L 500.2500, L100.0100 #### [facility] [address] [place], [address] Neutrophils/100 WBC (Bld) 85.8 % High 47-70 [facility] Comment on above: Performed By: #### L 500.2500, L100.0100 #### [facility] [address] [place], [address] Nucleated RBC (Bld) [#/Vol] 0 10*3/uL Normal 0-5 [facility] Comment on above: Performed By: #### L 500.2500, L100.0100 #### [facility] [address] [place], [address] Platelet mean volume (Bld) [Entitic vol] 9.5 fL Normal 6.2-12.0 [facility] Comment on above: Performed By: #### L 500.2500, L100.0100 #### [facility] [address] [place], [address] Platelets (Bld) [#/Vol] 146 10*3/uL Low 150-450 [facility] Comment on above: Performed By: #### L 500.2500, L100.0100 #### [facility] [address] [place], [address] RBC (Bld) [#/Vol] 4.44 10*6/uL Low 4.6-6.2 [facility] Comment on above: Performed By: #### L 500.2500, L100.0100 #### [facility] [address] [place], [address] RDW SD 39.0 fl Normal 35.1-43.9 [facility] Comment on above: Performed By: #### L 500.2500, L100.0100 #### [facility] [address] [place], [address] WBC (Bld) [#/Vol] 12.6 10*3/uL High 4.4-11.0 [facility] Comment on above: Performed By: #### L 500.2500, L100.0100 #### [facility] [address] [place], [address] Free T3on 08-21-2024 Free T3 [Mass/Vol] 2.0 pg/mL Low 2.18-3.98 [facility] Comment on above: Order Comment: Add o nto previous labs if possible Performed By: #### L 506.0400, L501.82166 #### [facility] [address] [place], [address] Free J1Fiycusv By: Yadira Gomez rce on 08-21-2024 Free Triiodothyronine (T3) pg/dL 2.0 pg/mL Low 2.18-3.98 [facility] T4 Free Directon 08-21-2024 T4 FREE DIRECT 1.60 ng/dL High 0.76-1.46 [facility] Comment on above: Order Comment: Add o nto previous labs if possible Performed By: #### L 506.0400, L501.01469 #### [facility] [address] [place], [address] T4 freeOrdered By: Yadira Gomez rce on 08-21-2024 Free T4 [Mass/Vol] 1.60 ng/dL High 0.76-1.46 [facility] Basic Metabolic Profile (BMP )on 08-20-2024 BUN/CRE 19.9 RATIO Normal 10-20 [facility] Comment on above: Performed By: #### L 503.6005 #### [facility] [address] [place], [address] Calcium [Mass/Vol] 8.4 mg/dL Normal 7.6-11.0 [facility] Comment on above: Performed By: #### L 503.6005 #### [facility] [address] [place], [address] Chloride [Moles/Vol] 104 mmol/L Normal 98-108 [facility] Comment on above: Performed By: #### L 503.6005 #### [facility] [address] [place], [address] CO2 [Moles/Vol] 19.4 mmol/L Low 21.0-32.0 [facility] Comment on above: Performed By: #### L 503.6005 #### [facility] [address] [place], [address] Creatinine [Mass/Vol] 0.95 mg/dL Normal 0.70-1.20 [facility] Comment on above: Performed By: #### L 503.6005 #### [facility] [address] [place], [address] ECRCL 63.85 ml/min Normal 50-250 [facility] Comment on above: Performed By: #### L 503.6005 #### [facility] [address] [place], [address] GAP 13 Normal 5-15 [facility] Comment on above: Performed By: #### L 503.6005 #### [facility] [address] [place], [address] GFR/1.73 sq M.predicted among non-blacks MDRD (S/P/Bld) [Vol rate/Area] 80 mL/min/{1.73_m2} Normal >60 [facility] Comment on above: Result Comment: mL/m in/1.73m2 CKD-EPI Creatinine Equation (2020) Performed By: #### L 503.6005 #### [facility] [address] [place], [address] Glucose [Mass/Vol] 186 mg/dL High 70-99 [facility] Comment on above: Performed By: #### L 503.6005 #### [facility] [address] [place], [address] Potassium [Moles/Vol] 5.6 mmol/L High 3.3-5.1 [facility] Comment on above: Result Comment: Hemo lysis present, Results??could be affected. ?? Performed By: #### L 503.6005 #### [facility] [address] [place], [address] Sodium [Moles/Vol] 136 mmol/L Normal 133-145 [facility] Comment on above: Performed By: #### L 503.6005 #### [facility] [address] [place], [address] Urea nitrogen [Mass/Vol] 19 mg/dL Normal 4-19 [facility] Comment on above: Performed By: #### L 503.6005 #### [facility] [address] [place], [address] Bedside Glucoseon 08-20-2024 FINGERSTICK GLU 216 mg/dL High 74-106 [facility] Comment on above: Result Comment: SIRIA GEMENT OF PATIENT CARE PER NURSING PROTOCOL Performed By: #### L 500.2500, L100.0100 #### [facility] [address] [place], [address] FINGERSTICK GLU 264 mg/dL High [address] [place] [address] Comment on above: Result Comment: SIRIA GEMENT OF PATIENT CARE PER NURSING PROTOCOL Performed By: #### L 100.0100, L500.2500 #### [facility] [address] [place], [address] FINGERSTICK GLU 260 mg/dL High [address] [place] [address] Comment on above: Result Comment: SIRIA GEMENT OF PATIENT CARE PER NURSING PROTOCOL Performed By: #### L 500.2500, L100.0100 #### [facility] [address] [place], [address] FINGERSTICK GLU 199 mg/dL High [facility]106 [facility] Comment on above: Result Comment: SIRIA GEMENT OF PATIENT CARE PER NURSING PROTOCOL Performed By: #### L 100.0100, L500.2500 #### [facility] [address] [place], [address] FINGERSTICK GLU 139 mg/dL High 74-106 [facility] Comment on above: Result Comment: SIRIA GEMENT OF PATIENT CARE PER NURSING PROTOCOL Performed By: #### L 500.2500, L100.0100 #### [facility] [address] [place], [address] FINGERSTICK GLU 144 mg/dL High 74-106 [facility] Comment on above: Result Comment: SIRIA GEMENT OF PATIENT CARE PER NURSING PROTOCOL Performed By: #### L 501.080 #### [facility] [address] [place], [address] CBC W/Diff, Automatedon 04-1 0-5 Absolute Lymph 0.55 X10 3/uL Low 0.83-4.51 [facility] Comment on above: Performed By: #### L 501.080 #### [facility] [address] [place], [address] Absolute Neut 12.1 X10 3/uL High 2.0-7.7 [facility] Comment on above: Performed By: #### L 501.080 #### [facility] [address] [place], [address] Basophils/100 WBC (Bld) 0.2 % Normal 0-1 [facility] Comment on above: Performed By: #### L 501.080 #### [facility] [address] [place], [address] Eosinophils/100 WBC (Bld) 0.0 % Normal 0-5 [facility] Comment on above: Performed By: #### L 501.080 #### [facility] [address] [place], [address] Erythrocyte distribution width (RBC) [Ratio] 13.1 % Normal 11.6-14.6 [facility] Comment on above: Performed By: #### L 501.080 #### [facility] [address] [place], [address] Hematocrit (Bld) [Volume fraction] 38.4 % Low 40-54 [facility] Comment on above: Performed By: #### L 501.080 #### [facility] [address] [place], [address] Hemoglobin (Bld) [Mass/Vol] 13.5 g/dL Normal 13.0-16.5 [facility] Comment on above: Performed By: #### L 501.080 #### [facility] [address] [place], [address] IG% 0.700 Normal 0.0-0.9 [facility] Comment on above: Result Comment: IG% - Immature Granulocytes (promyelocytes, myelocytes and metamyelocytes) > 1% indicates that a LEFT SHIFT is Present. Performed By: #### L 501.080 #### [facility] [address] [place], [address] Lymphocytes/100 WBC (Bld) 4.0 % Low 19-41 [facility] Comment on above: Performed By: #### L 501.080 #### [facility] [address] [place], [address] MCH (RBC) [Entitic mass] 29.1 pg Normal 27.0-32.0 [facility] Comment on above: Performed By: #### L 501.080 #### [facility] [address] [place], [address] MCHC (RBC) [Mass/Vol] 35.2 g/dL Normal 32-36 [facility] Comment on above: Performed By: #### L 501.080 #### [facility] [address] [place], [address] MCV (RBC) [Entitic vol] 82.8 fL Normal 80-94 [facility] Comment on above: Performed By: #### L 501.080 #### [facility] [address] [place], [address] Monocytes/100 WBC (Bld) 6.3 % Normal 0-10 [facility] Comment on above: Performed By: #### L 501.080 #### [facility] [address] [place], [address] Neutrophils/100 WBC (Bld) 88.8 % High 47-70 [facility] Comment on above: Performed By: #### L 501.080 #### [facility] [address] [place], [address] Nucleated RBC (Bld) [#/Vol] 0 10*3/uL Normal 0-5 [facility] Comment on above: Performed By: #### L 501.080 #### [facility] [address] [place], [address] Platelet mean volume (Bld) [Entitic vol] 10.1 fL Normal 6.2-12.0 [facility] Comment on above: Performed By: #### L 501.080 #### [facility] [address] [place], [address] Platelets (Bld) [#/Vol] 156 10*3/uL Normal 150-450 [facility] Comment on above: Performed By: #### L 501.080 #### [facility] [address] [place], [address] RBC (Bld) [#/Vol] 4.64 10*6/uL Normal 4.6-6.2 [facility] Comment on above: Performed By: #### L 501.080 #### [facility] [address] [place], [address] RDW SD 39.4 fl Normal 35.1-43.9 [facility] Comment on above: Performed By: #### L 501.080 #### [facility] [address] [place], [address] WBC (Bld) [#/Vol] 13.6 10*3/uL High 4.4-11.0 [facility] Comment on above: Performed By: #### L 501.080 #### [facility] [address] [place], [address] ENTERIC PATHOGEN PANEL STOOL on 08-20-2024 EP PANEL Normal Reference Ran ge = Not Detected Nucleic acid amplification test method Norovirus Gl/Gll detected. Contact precautions should be followed for these patients and limit exposure to others since spread of disease is common. Treatment is often not needed for this pathogen. This is an amplified DNA test which makes it both specific and sensitive. CRITICAL VALUE CALLED TO [facility] 08/20/24 0058 Stephen Julien. RESULTS READ BACK BY SAME. Copy of report sent to Infection Control Printer [id number] 08/20/24 6904 BOB. CAMPYLOBACTER Not Detected Norovirus A Norovirus Detected A Rotavirus Not Detected Salmonella Not Detected Shiga Toxin Not Detected Shigella sp. Not Detected VIBRIO Not Detected Yersinia Not Detected Norovirus * This is an amended result. * A prior result that was reported as final has been changed. 08/20/24 1306 by BOB Normal [facility] Comment on above: Performed By: #### L 506.0400, L501.96619 #### [facility] [address] [place], [address] Electrocardiogram reportOrde red By: Fran De Leon on 08-20-2024 EKG study [facility] [address] [place] [address] 12 Lead EKG 08/19/24 0918 MR#: [id number] Acct: [id number] Name: SANTOS MOREL Rep #:[id number] : 1940 84 From: Fran De Leon MD Attending Dr: Dr. Yadira Pruett MD Status: ADM IN Ordering Dr: Denilson Foley MD Date: Location: ICU Sex: M C Admitted: 08/19/24 Test Reason : N/V Blood Pressure : */* mmHG Vent. Rate : 127 BPM Atrial Rate : 127 BPM P-R Int : 184 ms QRS Dur : 126 ms QT Int : 340 ms P-R-T Axes : * 166 25 degrees QTcB Int : 494 ms Sinus tachycardia Right bundle branch block Abnormal ECG Confirmed by MOISES MATHIAS, FRAN ([id number]), videotape editor NARGIS ÁLVAREZ ([id number]) on 58:36:27 AM Referred By: Confirmed By: FRAN DE LEON MD 08/20/24 0836 Date _ Fran De Leon MD CC: Dr. Denilson Foley MD; Dr. Yvan Rahman MD; Dr. Yadira Pruett MD ~ Signed [facility] Other Phone: Gram Stainon 08-20-2024 GS Acceptable Specimen? Yes (<25 Epithelial cells per/lpf) Gram Stain Rare Gram positive rods Rare Gram positive cocci 3+ White Blood Cells Normal [facility] Comment on above: Performed By: #### L 500.2500, L100.0100 #### [facility] [address] [facility] [place], [address] Hemoglobin A1con 08-20-2024 HbA1c (Bld) [Mass fraction] 7.9 % Normal <=5.6 [facility] Comment on above: Performed By: #### L 501.080 #### [facility] [address] [place], [place], [address] Hemoglobin A1c percentageOrd ered By: Yadira Pruett on 08-20-2024 HbA1c (Bld) [Mass fraction] 7.9 % >5.7 [facility] TSH DL <= 0.005 mIU/L QnOrde red By: Yadira Pruett on 08-20-2024 Thyroid Stimulating Hormone (TSH) 0.069 uIU/mL Low 0.300-4.200 [facility] Thyroid Stim Hormone (TSH)on 08-20-2024 TSH 0.069 uIU/mL Low 0.300-4.200 [facility] Comment on above: Performed By: #### L 501.080 #### [facility] [address] [place], [place], [address] Urine Cultureon 08-20-2024 URC Culture exhibits no growth. Normal [facility] Comment on above: Performed By: #### L 100.0100, L500.2500 #### [facility] [address] [place], [address] 12 Lead EKGon 08-19-[address] [facility] [address] [place] [address] 12 Lead EKG 08/19/24 0918 MR#: [id number] Acct: [id number] Name: SANTOS MOREL Rep #: [id number] : 1940 84 From: Fran De Leon MD Attending Dr: Dr. Yadira Pruett MD Status: ADM IN Ordering Dr: Denilson Foley MD Date: 08/19/24 Location: ICU Sex: M C Admitted: 08/19/24 Test Reason : N/V Blood Pressure : */* mmHG Vent. Rate : 127 BPM Atrial Rate : 127 BPM P-R Int : 184 ms QRS Dur : 126 ms QT Int : 340 ms P-R-T Axes : * 166 25 degrees QTcB Int : 494 ms Sinus tachycardia Right bundle branch block Abnormal ECG Confirmed by MOISES MATHIAS, FRAN ([id number]), videotape editor NARGIS ÁLVAREZ ([id number]) on 08/20/2024 8:36:27 AM Referred By: Confirmed By: FRAN DE LEON MD 08/20/2436 Date Fran De Leon MD CC: Dr. Denilson Foley MD; Dr. Yvan Rahman MD; Dr. Yadira Pruett MD Signed Normal [facility] Absolute neutrophil countOrd ered By: Denilson Foley on 08-19-2024 Neutrophils (Bld) [#/Vol] 13.1 10*3/uL High 2.0-7.7 [facility] Anion gap in Serum or Plasma Ordered By: Denilson Foley on 08-19-2024 Anion gap [Moles/Vol] 23 mmol/L High 5-15 [facility] BUN/creatinine ratioOrdered By: Denilson Foley on 08-19-2024 Urea nitrogen/Creatinine [Mass ratio] 18.8 mg/mg 10-20 [facility] Basic Metabolic Profile (BMP )on 08-19-2024 BUN/CRE 18.1 RATIO Normal - [facility] Comment on above: Performed By: #### L 501.080 #### [facility] [address] [place], [address] Calcium [Mass/Vol] 8.7 mg/dL Normal 7.6-11.0 [facility] Comment on above: Performed By: #### L 501.080 #### [facility] [address] [place], [address] Chloride [Moles/Vol] 102 mmol/L Normal 98-108 [facility] Comment on above: Performed By: #### L 501.080 #### [facility] [address] [place], [address] CO2 [Moles/Vol] 17.0 mmol/L Low 21.0-32.0 [facility] Comment on above: Performed By: #### L 501.080 #### [facility] [address] [place], [address] Creatinine [Mass/Vol] 1.13 mg/dL Normal 0.70-1.20 [facility] Comment on above: Performed By: #### L 501.080 #### [facility] [address] [place], [address] ECRCL 53.68 ml/min Normal 50-250 [facility] Comment on above: Performed By: #### L 501.080 #### [facility] [address] [place], [address] GAP 17 High 5-15 [facility] Comment on above: Performed By: #### L 501.080 #### [facility] [address] [place], [address] GFR/1.73 sq M.predicted among non-blacks MDRD (S/P/Bld) [Vol rate/Area] 65 mL/min/{1.73_m2} Normal >60 [facility] Comment on above: Result Comment: mL/m in/1.73m2 CKD-EPI Creatinine Equation (2020) Performed By: #### L 501.080 #### [facility] [address] [place], [address] Glucose [Mass/Vol] 270 mg/dL High 70-99 [facility] Comment on above: Performed By: #### L 501.080 #### [facility] [address] [place], [address] Potassium [Moles/Vol] 5.4 mmol/L High 3.3-5.1 [facility] Comment on above: Performed By: #### L 501.080 #### [facility] [address] [place], [address] Sodium [Moles/Vol] 136 mmol/L Normal 133-145 [facility] Comment on above: Performed By: #### L 501.080 #### [facility] [address] [place], [address] Urea nitrogen [Mass/Vol] 20 mg/dL High 4-19 [facility] Comment on above: Performed By: #### L 501.080 #### [facility] [address] [place], [address] BUN/CRE 20.8 RATIO High 10-20 [facility] Comment on above: Performed By: #### L 500.2500, L501.6901 #### [facility] [address] [place], [address] Calcium [Mass/Vol] 8.3 mg/dL Normal 7.6-11.0 [facility] Comment on above: Performed By: #### L 500.2500, L501.6901 #### [facility] [address] [place], [address] Chloride [Moles/Vol] 103 mmol/L Normal 98-108 [facility] Comment on above: Performed By: #### L 500.2500, L501.6901 #### [facility] [address] [place], [address] CO2 [Moles/Vol] 18.1 mmol/L Low 21.0-32.0 [facility] Comment on above: Performed By: #### L 500.2500, L501.6901 #### [facility] [address] [place], [address] Creatinine [Mass/Vol] 1.00 mg/dL Normal 0.70-1.20 [facility] Comment on above: Performed By: #### L 500.2500, L501.6901 #### [facility] [address] [place], [address] ECRCL 60.66 ml/min Normal 50-250 [facility] Comment on above: Performed By: #### L 500.2500, L501.6901 #### [facility] [address] [place], [address] GAP 15 Normal 5-15 [facility] Comment on above: Performed By: #### L 500.2500, L501.6901 #### [facility] [address] [place], [address] GFR/1.73 sq M.predicted among non-blacks MDRD (S/P/Bld) [Vol rate/Area] 75 mL/min/{1.73_m2} Normal >60 [facility] Comment on above: Result Comment: mL/m in/1.73m2 CKD-EPI Creatinine Equation (2020) Performed By: #### L 500.2500, L501.6901 #### [facility] [address] [place], [address] Glucose [Mass/Vol] 303 mg/dL High 70-99 [facility] Comment on above: Performed By: #### L 500.2500, L501.6901 #### [facility] [address] [place], [address] Potassium [Moles/Vol] 4.4 mmol/L Normal 3.3-5.1 [facility] Comment on above: Performed By: #### L 500.2500, L501.6901 #### [facility] [address] [place], [address] Sodium [Moles/Vol] 136 mmol/L Normal 133-145 [facility] Comment on above: Performed By: #### L 500.2500, L501.6901 #### [facility] [address] [place], [address] Urea nitrogen [Mass/Vol] 21 mg/dL High 4-19 [facility] Comment on above: Performed By: #### L 500.2500, L501.6901 #### [facility] [address] [place], [address] Basophil percentageOrdered B y: Denilson Foley on 08-19-2024 Basophils/100 WBC (Bld) 0.3 % 0-1 [facility] Bedside Glucoseon 08-19-2024 FINGERSTICK GLU 203 mg/dL High 74-106 [facility] Comment on above: Result Comment: SIRIA GEMENT OF PATIENT CARE PER NURSING PROTOCOL Performed By: #### L 501.080 #### [facility] [address] [place], [address] FINGERSTICK GLU 267 mg/dL High 74-106 [facility] Comment on above: Result Comment: SIRIA GEMENT OF PATIENT CARE PER NURSING PROTOCOL Performed By: #### L 501.080 #### [facility] [address] [place], [address] FINGERSTICK GLU 244 mg/dL High [address] [facility] Comment on above: Result Comment: SIRIA GEMENT OF PATIENT CARE PER NURSING PROTOCOL Performed By: #### L 501.080 #### [facility] [address] [place], [address] FINGERSTICK GLU 280 mg/dL High -106 [facility] Comment on above: Result Comment: SIRIA GEMENT OF PATIENT CARE PER NURSING PROTOCOL Performed By: #### L 500.2500, L100.0100 #### [facility] [address] [place], [address] FINGERSTICK GLU 375 mg/dL High [address] [place] [address] Comment on above: Result Comment: SIRIA GEMENT OF PATIENT CARE PER NURSING PROTOCOL Performed By: #### L 100.0100, L500.2500 #### [facility] [address] [place], [address] Beta hydroxybutyrate [Mass/V ol]Ordered By: Yadira Pruett on 08-19-2024 Beta-Hydroxybutyric Acid mmol/L 0.7 mmol/L 0.0-0.3 [facility] Beta hydroxybutyrate [Mass/V ol]Ordered By: Denilson Foley on 08-19-2024 Beta-Hydroxybutyric Acid mmol/L 1.6 mmol/L 0.0-0.3 [facility] Beta-Hydroxbytyrateon 2024 BETA-HYDROXYBUT 0.7 mmol/L Normal 0.0-0.3 [facility] Comment on above: Performed By: #### L 501.080 #### [facility] [address] [place], [address] BETA-HYDROXYBUT 1.3 mmol/L Normal 0.0-0.3 [facility] Comment on above: Performed By: #### L 500.2500, L100.0100 #### [facility] [address] [place], [address] BETA-HYDROXYBUT 1.6 mmol/L Normal 0.0-0.3 [facility] Comment on above: Performed By: #### L 500.2500, L100.0100 #### [facility] [address] [place], [address] Bilirubin Test strip Ql (U)O rdered By: Denilson Foley on 08-19-2024 Bilirubin Ql (U) Negative Negative [facility] Bilirubin, totalOrdered By: Denilson Foley on 08-19-2024 Bilirubin [Mass/Vol] 1.11 mg/dL 0.00-1.30 [facility] CBC W/Diff, Automatedon 040 Absolute Lymph 0.90 X10 3/uL Normal 0.83-4.51 [facility] Comment on above: Performed By: #### L 100.0100, L500.2500 #### [facility] [address] [place], [address] Absolute Neut 13.1 X10 3/uL High 2.0-7.7 [facility] Comment on above: Performed By: #### L 100.0100, L500.2500 #### [facility] [address] [place], [address] Basophils/100 WBC (Bld) 0.3 % Normal 0-1 [facility] Comment on above: Performed By: #### L 100.0100, L500.2500 #### [facility] [address] [place], [address] Eosinophils/100 WBC (Bld) 0.1 % Normal 0-5 [facility] Comment on above: Performed By: #### L 100.0100, L500.2500 #### [facility] [address] [place], [address] Erythrocyte distribution width (RBC) [Ratio] 12.6 % Normal 11.6-14.6 [facility] Comment on above: Performed By: #### L 100.0100, L500.2500 #### [facility] [address] [place], [address] Hematocrit (Bld) [Volume fraction] 46.5 % Normal 40-54 [facility] Comment on above: Performed By: #### L 100.0100, L500.2500 #### [facility] [address] [place], [address] Hemoglobin (Bld) [Mass/Vol] 15.9 g/dL Normal 13.0-16.5 [facility] Comment on above: Performed By: #### L 100.0100, L500.2500 #### [facility] [address] [place], [address] IG% 0.500 Normal 0.0-0.9 [facility] Comment on above: Result Comment: IG% - Immature Granulocytes (promyelocytes, myelocytes and metamyelocytes) > 1% indicates that a LEFT SHIFT is Present. Performed By: #### L 100.0100, L500.2500 #### [facility] [address] [place], [address] Lymphocytes/100 WBC (Bld) 6.2 % Low 19-41 [facility] Comment on above: Performed By: #### L 100.0100, L500.2500 #### [facility] [address] [place], [address] MCH (RBC) [Entitic mass] 28.6 pg Normal 27.0-32.0 [facility] Comment on above: Performed By: #### L 100.0100, L500.2500 #### [facility] [address] [place], [address] MCHC (RBC) [Mass/Vol] 34.2 g/dL Normal 32-36 [facility] Comment on above: Performed By: #### L 100.0100, L500.2500 #### [facility] [address] [place], [address] MCV (RBC) [Entitic vol] 83.8 fL Normal 80-94 [facility] Comment on above: Performed By: #### L 100.0100, L500.2500 #### [facility] [address] [place], [address] Monocytes/100 WBC (Bld) 3.0 % Normal 0-10 [facility] Comment on above: Performed By: #### L 100.0100, L500.2500 #### [facility] [address] [place], [address] Neutrophils/100 WBC (Bld) 89.9 % High 47-70 [facility] Comment on above: Performed By: #### L 100.0100, L500.2500 #### [facility] [address] [place], [address] Nucleated RBC (Bld) [#/Vol] 0 10*3/uL Normal 0-5 [facility] Comment on above: Performed By: #### L 100.0100, L500.2500 #### [facility] [address] [place], [address] Platelet mean volume (Bld) [Entitic vol] 10.0 fL Normal 6.2-12.0 [facility] Comment on above: Performed By: #### L 100.0100, L500.2500 #### [facility] [address] [place], [address] Platelets (Bld) [#/Vol] 220 10*3/uL Normal 150-450 [facility] Comment on above: Performed By: #### L 100.0100, L500.2500 #### [facility] [address] [place], [address] RBC (Bld) [#/Vol] 5.55 10*6/uL Normal 4.6-6.2 [facility] Comment on above: Performed By: #### L 100.0100, L500.2500 #### [facility] [address] [place], [address] RDW SD 38.4 fl Normal 35.1-43.9 [facility] Comment on above: Performed By: #### L 100.0100, L500.2500 #### [facility] [address] [place], [address] WBC (Bld) [#/Vol] 14.5 10*3/uL High 4.4-11.0 [facility] Comment on above: Performed By: #### L 100.0100, L500.2500 #### [facility] [address] [place], [address] Carbon dioxide, total [Moles /volume] in Central venous bloodOrdered By: Denilson Foley on 08-19-2024 CO2 [Moles/Vol] 15.5 mmol/L Low 21.0-32.0 [facility] Chest 1 View (Portable)on Chest 1 View (Portable) [facility] [address] [place] [address] Chest 1 View (Portable) MR#: [id number] Acct: [id number] Name: SANTOS MOREL Rep #: [id number] : 1940 M 84 From: Jung Luke MD PCP: Dr. Yvan Rahman MD Status: REG ER Study: Chest 1 View (Portable) Date of Exam: 08/19/24 Exam# [id number] Ordering Dr: Denilson Foley MD PROCEDURE: CHEST 1 VIEW (PORTABLE) 08/19/2024 REASON FOR EXAM: WEAKNESS, HYPOXIA TECHNIQUE: Frontal view of the chest. COMPARISON: No relevant prior. FINDINGS: Lungs: Prominent lung markings at the left lung base. Pleura: No pleural effusions, thickening, or pneumothorax. Elevation of the right hemidiaphragm. Heart: Normal in size and configuration. Mediastinum/Audelia: Unremarkable. Great vessels: Aorta is atherosclerotic and tortuous. Bones/soft tissues: Multilevel spondylosis. Cardiac monitoring leads overlie the chest wall. RAD/Chest 1 View (Portable) IMPRESSION: Prominent lung markings at the left lung base. Can not exclude a developing infiltrate. Elevation of the right hemidiaphragm. Reading Location: [place] [address] CC: Dr. Denilson Foley MD; Dr. Yvan Rahman MD Child Care Team Lead: Signed Normal [facility] Chloride assayOrdered By: Tomas Foley on 08-19-2024 Chloride [Moles/Vol] 97 mmol/L Low 98-108 [facility] Comprehensive Metabolic Prof ilon 08-19-2024 Albumin [Mass/Vol] 4.2 g/dL Normal 3.4-4.8 [facility] Comment on above: Performed By: #### L 100.0100, L500.2500 #### [facility] [address] [place], [place], [address] Albumin/Globulin [Mass ratio] 1.3 {ratio} Normal 0.9-2.4 [facility] Comment on above: Performed By: #### L 100.0100, L500.2500 #### [facility] [address] [place], [address] ALK PHOS 71 U/L Normal 40-129 [facility] Comment on above: Performed By: #### L 100.0100, L500.2500 #### [facility] [address] [place], [address] ALT [Catalytic activity/Vol] 36 U/L Normal <=46 [facility] Comment on above: Performed By: #### L 100.0100, L500.2500 #### [facility] [address] [place], [address] AST [Catalytic activity/Vol] 41 U/L High <=37 [facility] Comment on above: Performed By: #### L 100.0100, L500.2500 #### [facility] [address] [place], [address] Bilirubin [Mass/Vol] 1.11 mg/dL Normal 0.00-1.30 [facility] Comment on above: Performed By: #### L 100.0100, L500.2500 #### [facility] [address] [place], [address] BUN/CRE 18.8 RATIO Normal 10-20 [facility] Comment on above: Performed By: #### L 100.0100, L500.2500 #### [facility] [address] [place], [address] Calcium [Mass/Vol] 8.8 mg/dL Normal 7.6-11.0 [facility] Comment on above: Performed By: #### L 100.0100, L500.2500 #### [facility] [address] [place], [address] Chloride [Moles/Vol] 97 mmol/L Low 98-108 [facility] Comment on above: Performed By: #### L 100.0100, L500.2500 #### [facility] [address] [place], [address] CO2 [Moles/Vol] 15.5 mmol/L Low 21.0-32.0 [facility] Comment on above: Performed By: #### L 100.0100, L500.2500 #### [facility] [address] [place], [address] Creatinine [Mass/Vol] 1.18 mg/dL Normal 0.70-1.20 [facility] Comment on above: Performed By: #### L 100.0100, L500.2500 #### [facility] [address] [place], [address] ECRCL 54.81 ml/min Normal 50-250 [facility] Comment on above: Performed By: #### L 100.0100, L500.2500 #### [facility] [address] [place], [address] GAP 23 High 5-15 [facility] Comment on above: Performed By: #### L 100.0100, L500.2500 #### [facility] [address] [place], [address] GFR/1.73 sq M.predicted among non-blacks MDRD (S/P/Bld) [Vol rate/Area] 62 mL/min/{1.73_m2} Normal >60 [facility] Comment on above: Result Comment: mL/m in/1.73m2 CKD-EPI Creatinine Equation (2020) Performed By: #### L 100.0100, L500.2500 #### [facility] [address] [place], [address] Globulin (S) [Mass/Vol] 3.2 g/dL Normal 2.2-4.2 [facility] Comment on above: Performed By: #### L 100.0100, L500.2500 #### [facility] [address] [place], [address] Glucose [Mass/Vol] 437 mg/dL High 70-99 [facility] Comment on above: Performed By: #### L 100.0100, L500.2500 #### [facility] [address] [place], [address] Potassium [Moles/Vol] 4.1 mmol/L Normal 3.3-5.1 [facility] Comment on above: Performed By: #### L 100.0100, L500.2500 #### [facility] [address] [place], [address] Sodium [Moles/Vol] 135 mmol/L Normal 133-145 [facility] Comment on above: Performed By: #### L 100.0100, L500.2500 #### [facility] [address] [place], [address] T PROT 7.4 g/dL Normal 5.9-8.4 [facility] Comment on above: Performed By: #### L 100.0100, L500.2500 #### [facility] [address] [place], [address] Urea nitrogen [Mass/Vol] 22 mg/dL High 4-19 [facility] Comment on above: Performed By: #### L 100.0100, L500.2500 #### [facility] [address] [place], [address] Consultation - Intensiviston 08-19-2024 Consultation - Electro Plater [facility] Medical Records Department [address] [place] [address] Consultation - Electro Plater 08/19/24 1327 MR#: [id number] Acct: [id number] Name: SANTOS MOREL Rep #: [id number] : 1940 84 From: Case Paredes DO PCP: Dr. Yvan Rahman MD Status:ADM IN Location: ICU ICU01-1 Assessment Plan Assessment/Plan (1) Sepsis: PLAN: Plan RECOMMENDATIONS: 1. Continue empiric antibiotics. 2. Agree with rechecking beta hydroxybutyrate level. 3. If lactic acidemia improves but anion gap remains elevated with increased beta hydroxybutyrate, recommend insulin drip. 4. Continuous IV fluids as ordered. 5. Continue appropriate DVT prophylaxis. 6. Check enteric pathogen panel. IMPRESSIONS: 1. Sepsis The patient presented with sepsis due to possible pneumonia (less likely) versus GI source (gastroenteritis) with acute sepsis related organ dysfunction as evidenced by lactic acidemia. The patient has been initiated on antimicrobial therapy along with supplemental IV fluid hydration. He remains hemodynamically stable at the present time. Will plan to check an enteric pathogen panel, if the patient continues to have diarrhea. Otherwise, continue current supportive care. 2. Hyperglycemia The patient presented with hyperglycemia with an increased anion gap and metabolic acidosis, concerning for DKA. Accordingly, recommend rechecking beta hydroxybutyrate level. If the patient's lactic acidemia improves but anion gap remains elevated with increased beta hydroxybutyrate level, I would recommend initiating a continuous insulin infusion, and starting DKA protocol. 3. Remote history of lung CA/BPH/hypothyroidism/GERD /hypertension Complicates care, management, recovery and prognosis. Continue home medications as indicated. Remainder of supportive care as noted above. This note was generated with [employer] dictation software. It may contain incorrect words, spelling, and punctuation that were not noted in checking the note before signing. HPI Consult Data Date of Consult: 08/20/24 HPI Narrative Reason for Consultation: Sepsis HPI Narrative: The patient is an 84-year-old male, with a history as outlined below, who presented to the emergency department on August 19 with nausea, vomiting and diarrhea of approximately 48 hours duration. The patient reported that he initially became ill after eating breakfast yesterday with some friends. His symptoms initially began with nausea and vomiting and then he developed some diarrhea overnight. He does report limited p.o. intake during the aforementioned time. The patient has a remote history of lung CA approximately 10 years ago status post lobectomy along with diabetes mellitus and hypertension. On presentation to the emergency department, the patient was noted to be febrile, tachycardic tachypneic. The patient was hypertensive, but maintaining appropriate oxygen saturations on room air. Laboratory evaluation was notable for a white blood cell count of 14,000. Coagulation profile was within normal limits. Chemistry profile was notable for an anion gap of 23 with a creatinine of 1.18. Glucose was elevated at 437. Lactate was increased to 6.3. Lipase was within normal limits. Beta hydroxybutyrate level was elevated at 1.6. Chest x-ray, on my review, did not reveal a focal infiltrate or consolidation. Blood and urine cultures were collected. The patient was started on supplemental IV fluids and antimicrobials. He was subsequently admitted to the medical intensive care unit. [facility] Medical History (Updated 08/19/24 @ 12:50 by Anita Poe) Kidney stones Non-smoker HTN (hypertension) Lung cancer Diabetes Home Medications ???Medication ???Instructions ???Recorded ???Last Taken ???Type glimepiride 2 mg tablet 2 mg PO BID 07/22/13 08/18/24 Hist ory aspirin 81 mg tablet,delayed 81 mg PO DAILY 08/19/24 08/18/24 H istory release (Adult Aspirin Regimen) cholecalciferol (vitamin D3) 50 50 mcg PO DAILY 08/19/24 08/18/24 History mcg (2,000 unit) capsule levothyroxine 175 mcg tablet 175 mcg PO DAILY 08/19/24 08/18/24 History (Synthroid) losartan 100 mg tablet 100 mg PO DAILY 08/19/24 08/18/24 History omeprazole 20 mg capsule,delayed 20 mg PO DAILY 08/19/24 08/18/24 H istory release pioglitazone 30 mg tablet 30 mg PO DAILY 08/19/24 08/18/24 H istory pravastatin 40 mg tablet 40 mg PO DAILY 08/19/24 08/18/24 H istory sitagliptin phos 100 mg-metformin 1 tab PO DAILY 08/19/24 08/18/24 History ER 1,000 mg tablet,extend rel 24h mp (Janumet XR) tamsulosin 0.4 mg capsule 0.4 mg PO BID 08/19/24 08/18/24 Hi story Allergy/AdvReac Type Severity Reaction Status Date / Time Penicillins Allergy Swelling Verified 08/19/24 08:58 Surgical History (Updated 08/19/24 @ 09:18 by Luis Armando King) S/P l (more content not included)... Normal [facility] Emergency Department Summary on 08-19-2024 Emergency Department Summary [facility] Medical Records Department [address] [place] [address] Emergency Department Summary 08/19/24 MR#: [id number] Acct: [id number] Name: SANTOS MOREL Rep #: [id number] : 1940 84 From: Denilson Foley MD PCP: Dr. Yvan Rahman MD Status:ADM IN Location: ICU ICU01-1 HPI History of Present Illness Chief Complaint: Weakness Narrative Narrative: 84-year-old male past medical history of diabetes presents via EMS with generalized weakness, nausea and vomiting. It was reported that he had a fever/elevated temperature at home. He felt sick to his stomach, and vomited 3-4 times at home. He was unable to sit up completely. He relates history that he has been feeling tired and fatigued as well. He denies any chest pain or shortness of breath, no cough, no problems with urination. He is not having diarrhea. He denies any abdominal pain. It was reported by EMS that he was hypoxic as well. He had a pulse ox in the 80s upon their arrival. [facility] Medical History (Updated 08/19/24 @ 10:51 by Denilson Foley MD) HTN (hypertension) Lung cancer Diabetes Home Medications ???Medication ???Instructions ???Recorded ???Last Taken ???Type glimepiride 2 mg tablet 2 mg PO BID 07/22/13 08/18/24 Hist ory aspirin 81 mg tablet,delayed 81 mg PO DAILY 08/19/24 08/18/24 H istory release (Adult Aspirin Regimen) cholecalciferol (vitamin D3) 50 50 mcg PO DAILY 08/19/24 08/18/24 History mcg (2,000 unit) capsule levothyroxine 175 mcg tablet 175 mcg PO DAILY 08/19/24 08/18/24 History (Synthroid) losartan 100 mg tablet 100 mg PO DAILY 08/19/24 08/18/24 History omeprazole 20 mg capsule,delayed 20 mg PO DAILY 08/19/24 08/18/24 H istory release pioglitazone 30 mg tablet 30 mg PO DAILY 08/19/24 08/18/24 H istory pravastatin 40 mg tablet 40 mg PO DAILY 08/19/24 08/18/24 H istory sitagliptin phos 100 mg-metformin 1 tab PO DAILY 08/19/24 08/18/24 History ER 1,000 mg tablet,extend rel 24h mp (Janumet XR) tamsulosin 0.4 mg capsule 0.4 mg PO BID 08/19/24 08/18/24 Hi story Allergy/AdvReac Type Severity Reaction Status Date / Time Penicillins Allergy Swelling Verified 08/19/24 08:58 Surgical History (Updated 08/19/24 @ 09:18 by Luis Armando King) S/P lobectomy of lung Social History Smoking Status: Never smoker ROS ROS ED ROS Narrative Afebrile. Vital signs noted. Nontoxic-appearing. Intermittent drowsiness noted on examination. Cardiovascular examination reveals mild tachycardia. Lungs are clear to auscultation bilaterally with diminished sounds at the bilateral bases. Abdomen soft, nontender, no guarding or rebound. Positive bowel sounds. Neurological examination shows him to be awake and interactive. Stated year was 2023. Intermittently fatigued. No pedal edema bilaterally. Moves all extremities. EXAM Physical Exam Const Vital Signs: 08/19/24 08:58 08/19/24 09:08 08/19/24 09:08 Temperature 98.2 F 98.6 F Temperature Source Oral Oral Pulse Rate 130 H 130 H Respiratory Rate 18 28 H Respiratory Effort Respiratory Pattern Blood Pressure 174/86 H 174/86 H Blood Pressure Mean 115 115 Pulse Ox 91 92 Oxygen Delivery Method Room Air Room Air Nasal Cannula Oxygen Flow Rate (L/min) 2 08/19/24 09:17 08/19/24 10:05 08/19/24 10:28 Temperature 102.1 F H 102.3 F H Temperature Source Core Core Pulse Rate 116 H 115 H Respiratory Rate 28 H 30 H Respiratory Effort Normal Respiratory Pattern Normal Blood Pressure 145/64 H 123/70 H Blood Pressure Mean 91 87 Pulse Ox 93 94 Oxygen Delivery Method Nasal Cannula Nasal Cannula Oxygen Flow Rate (L/min) 2 2 Sepsis Attestation Sepsis Alert: Yes Sepsis Attestation: Agree w/Sepsis Date exam was performed: 08/19/24 Time exam was performed: 10:05 Possible Source of Sepsis: Pulmonary Sepsis Organ Dysfunction Criteria Present: SBP decrease of more than 40 mmHg and New/Unexplained change in mental status Fluid Resuscitation Fluid resuscitation indicated?: Yes Fluid Resuscitation ordered: 30 ml/kg fluid bolus ordered Amount of fluid ordered: 2,750 MDM MDM MDM Narrative Medical decision making narrative: Given patient's generalized weakness, differential diagnosis includes dehydration versus intravascular volume depletion. Given his tachycardia, concern would also be for new onset atrial fibrillation versus sinus tachycardia. With his reported hypoxia, he may have pneumonia versus pneumothorax. While he is not hypotensive, sepsis workup was pursued given his reported fever but he is currently afebrile. In discussing with the patient's , she states that yesterday patient was complaining of urinary frequency. She called EMS thi (more content not included)... Normal [facility] Eosinophil percentageOrdered By: Denilson Foley on 08-19-2024 Eosinophils/100 WBC (Bld) 0.1 % 0-5 [facility] Epithelial cells.squamous LM Ql (Urine sed)Ordered By: Denilson Foley on 08-19-2024 Epithelial cells.squamous LM.HPF (Urine sed) [#/Area] 0 /[HPF] 0-5 [facility] Erythrocyte distribution wid th (RBC) [Ratio]Ordered By: Denilson Foley on 08-19-2024 Erythrocyte distribution width (RBC) [Entitic vol] 38.4 fL 35.1-43.9 [facility] Erythrocyte distribution wid th ratioOrdered By: Denilson Foley on 08-19-2024 Erythrocyte distribution width (RBC) [Ratio] 12.6 % 11.6-14.6 [facility] Estimation of creatinine villa aranceOrdered By: Denilson Foley on 08-19-2024 Estimated Creatinine Clearance Calc 54.81 ml/min 50-250 [facility] GFR/1.73 sq M.predicted elizabeth g non-blacks MDRD (S/P/Bld) [Vol rate/Area]Ordered By: Denislon Foley on 08-19-2024 Estimated GFR (MDRD) Non-Af Amer 62 >60 [facility] Comment on above: mL/min/1.73m2 CKD-EP I Creatinine Equation (2020) Glucose Ql (U)Ordered By: Tomas Foley on 08-19-2024 Glucose (U) [Mass/Vol] 1000 mg/dL High Normal [facility] Gl[facility] at [facility] deOrdered By: Denilson Foley on 08-19-2024 Bedside Glucose (Misc Panel) 375 mg/dL High 74-106 [facility] Comment on above: MANAGEMENT OF PATIEN T CARE PER NURSING PROTOCOL Gram stainOrdered By: Yadira Pruett on 08-19-2024 Microscopic observation Gram stain Nom (Unsp spec) [facility] H AND P Exam - Hospitaliston 08-19-2024 H&P Exam - Hospitalist [facility] Medical Records Department [address] [place] [address] H P Exam - Hospitalist 08/19/24 1122 MR#: [id number] Acct: [id number] Name: SANTOS MOREL Rep #: [id number] : 1940 84 From: Yadira Pruett MD PCP: Dr. Yvan Rahman MD Status:ADM IN Location: ICU ICU01-1 HPI - General General Date of Admission: 08/19/24 Date of Service: 08/19/24 Chief Complaint: Altered mental status, nausea and vomiting HPI Narrative SANTOS MOREL, is a 84 M with a history of BPH, GERD, hypertension, hypothyroidism, diabetes presented [facility] ED 08/19/24 with nausea, vomiting, weakness and altered mental status. Reportedly he had been in his usual health the day before but woke up at 4 AM with nausea and vomiting and was feeling weak, noted he was very confused ultimately prompting her to bring him to the hospital, EMS noted patient was hypoxic to 80s and in the ED patient was tachypneic, tachycardic, and febrile and requiring 2 L of O2. Chest x-ray concerning for pneumonia so patient started on broad-spectrum antibiotics. He was also found to have an elevated lactic acid and was given IV fluids per sepsis protocol and hospitalist contacted for admission. Additionally patient was found to have urinary retention and had Suárez placed. History obtained primarily per report and from as patient is very tired and often will wake up any as somewhat difficult time answering questions though reportedly is more oriented now. Per he had a normal day yesterday and he did not know with her and went to bed completely fine but this a.m. she heard him get up around 4 AM when he had at least 3 episodes of emesis and an episode of diarrhea and given his continued worsening he was brought to the ED. Patient very tired but did wake up and answer questions more appropriately which is improved per . Patient reports he has been having cough but denies any abdominal pain, no more nausea or vomiting, denies being short of breath at present [facility] Medical History (Updated 08/19/24 @ 10:51 by Denilson Foley MD) Diabetes HTN (hypertension) Lung cancer Home Medications ???Medication ???Instructions ???Recorded ???Last Taken ???Type glimepiride 2 mg tablet 2 mg PO BID 07/22/13 08/18/24 Hist ory aspirin 81 mg tablet,delayed 81 mg PO DAILY 08/19/24 08/18/24 H istory release (Adult Aspirin Regimen) cholecalciferol (vitamin D3) 50 50 mcg PO DAILY 08/19/24 08/18/24 History mcg (2,000 unit) capsule levothyroxine 175 mcg tablet 175 mcg PO DAILY 08/19/24 08/18/24 History (Synthroid) losartan 100 mg tablet 100 mg PO DAILY 08/19/24 08/18/24 History omeprazole 20 mg capsule,delayed 20 mg PO DAILY 08/19/24 08/18/24 H istory release pioglitazone 30 mg tablet 30 mg PO DAILY 08/19/24 08/18/24 H istory pravastatin 40 mg tablet 40 mg PO DAILY 08/19/24 08/18/24 H istory sitagliptin phos 100 mg-metformin 1 tab PO DAILY 08/19/24 08/18/24 History ER 1,000 mg tablet,extend rel 24h mp (Janumet XR) tamsulosin 0.4 mg capsule 0.4 mg PO BID 08/19/24 08/18/24 Hi story Allergy/AdvReac Type Severity Reaction Status Date / Time Penicillins Allergy Swelling Verified 08/19/24 08:58 Surgical History (Updated 08/19/24 @ 09:18 by Luis Armando King) S/P lobectomy of lung Social History Smoking Status: Never smoker ROS ROS Narrative Patient denies any current nausea, vomiting, abdominal pain, no diarrhea since being in the ED, does report cough but no shortness of breath, patient very tired and had difficulty answering further ROS at this time Vital Signs Vital Signs Vital Signs: 08/19/24 08:58 08/19/24 09:08 08/19/24 09:08 Temperature 98.2 F 98.6 F Temperature Source Oral Oral Pulse Rate 130 H 130 H Respiratory Rate 18 28 H Respiratory Effort Respiratory Pattern Blood Pressure 174/86 H 174/86 H Blood Pressure Mean 115 115 Pulse Ox 91 92 Oxygen Delivery Method Room Air Room Air Nasal Cannula Oxygen Flow Rate (L/min) 2 08/19/24 09:17 08/19/24 10:05 08/19/24 10:28 Temperature 102.1 F H 102.3 F H Temperature Source Core Core Pulse Rate 116 H 115 H Respiratory Rate 28 H 30 H Respiratory Effort Normal Respiratory Pattern Normal Blood Pressure 145/64 H 123/70 H Blood Pressure Mean 91 87 Pulse Ox 93 94 Oxygen Delivery Method Nasal Cannula Nasal Cannula Oxygen Flow Rate (L/min) 2 2 Weight Weight: 91.2 kg Body Mass Index (BMI) 28.8 Physical Exam Narrative General: Patient sleeping, did eventually wake up but was very tired, initially said the wrong place but then corrected that he was in the hospital, seemed to answer most questions correctly but mostly tired now (more content not included)... Normal [facility] Hematocrit Auto (Bld) [Volum e fraction]Ordered By: Denilson Foley on 08-19-2024 Hematocrit (Bld) [Volume fraction] 46.5 % 40-54 [facility] Hemoglobin measurementOrdere d By: Denilson Foley on 08-19-2024 Hemoglobin (Bld) [Mass/Vol] 15.9 g/dL 13.0-16.5 [facility] Immature granulocytes/100 WB C Auto (Bld)Ordered By: Denilson Foley on 08-19-2024 Immature granulocytes/100 WBC (Bld) 0.500 % 0.0-0.9 [facility] Comment on above: IG% - Immature Granu locytes (promyelocytes, myelocytes and metamyelocytes) > 1% indicates that a LEFT SHIFT is Present. Influenza virus A and B and SARS-CoV-2 (COVID-19) and Respiratory syncytial virus RNAOrdered By: Denilson Foley on 08-19-2024 SARS-CoV-2 (COVID-19) RNA CRISTINA+probe Ql (Unsp spec) [facility] International normalized rat io (INR) calculationOrdered By: Denilson Foley on 08-19-2024 INR Coag (Bld) [Relative time] 1.1 {INR} [facility] Ketones Test strip Ql (U)Ord ered By: Denilson Foley on 08-19-2024 Ketones Ql (U) 50 mg/dl High Negative [facility] L. pneumophila Ag Ql (U)Orde red By: Case Paredes on 08-19-2024 Legionella Antigen [facility] Laboratory - Chemistry and C hemistry - challengeOrdered By: Denilson Foley on 08-19-2024 AST [Catalytic activity/Vol] 41 U/L High <38 [facility] Lactic Acidon 08-19-2024 Lactate [Moles/Vol] 4.7 mmol/L Invalid Interpretation Code 0.0-2.0 [facility] Comment on above: Result Comment: Crit ical Result(s) Called at 08/19/2024-14:37 by Jorge Marti??Results read back by same. Performed By: #### L 503.6005 #### [facility] [address] [place], [address] Lactate [Moles/Vol] 6.3 mmol/L Invalid Interpretation Code 0.0-2.0 [facility] Comment on above: Order Comment: Y Result Comment: Crit ical Result(s) Called at 08/19/2024-10:21 by Jorge King??Results read back by same. Performed By: #### L 100.0100, L500.2500 #### [facility] [address] [place], [address] Lactic acid measurementOrder ed By: Denilson Foley on 08-19-2024 Lactate [Moles/Vol] 4.7 mmol/L High 0.0-2.0 [facility] Comment on above: Critical Result(s) C alled at 08/19/2024-14:37 by Jorge Marti Results read back by same. Lactate [Moles/Vol] 6.3 mmol/L High 0.0-2.0 [facility] Comment on above: Critical Result(s) C alled at 08/19/2024-10:21 by Jorge Reynoso to Randall King Results read back by same. Legionella Antigen Urineon 0 08-19-2024 LEGU Legionella Antigen r esult interpretation: L pneumo Ag Ur Ql Negative Presumptive negative for Legionella pneumophila serogroup 1 antigen in urine, suggesting no recent or current infection. Legionella Ag, Urine Negative (See interpretation below) Normal [facility] Comment on above: Performed By: #### L 503.6005 #### [facility] [address] [place], [place], [address] Lipaseon 08-19-2024 Lipase [Catalytic activity/Vol] 28 U/L Normal 13-75 [facility] Comment on above: Result Comment: Franc eaton note: LIPASE revised reference range effective 22. New Lipase methodology. Expected to produce lower values than the previous assay method. NEW Reference Range: 13 - 75 U/L Performed By: #### L 100.0100, L500.2500 #### [facility] [address] [place], [place], [id number] Lipase measurementOrdered By : Denilson Foley on 08-19-2024 Lipase [Catalytic activity/Vol] 28 U/L 13-75 [facility] Comment on above: Please note:LIPASE r evised reference range effective 22. New Lipase methodology. Expected to produce lower values than the previous assay method. NEW Reference Range: 13 - 75 U/L Lymphocytes Auto (Unsp spec) [#/Vol]Ordered By: Denilson Foley on 08-19-2024 Lymphocytes (Bld) [#/Vol] 0.90 10*3/uL 0.83-4.51 [facility] Lymphocytes/100 WBC Auto (Un sp spec)Ordered By: Denilson Foley on 08-19-2024 Lymphocytes/100 WBC (Bld) 6.2 % Low 19-41 [facility] M100.678on 08-19-2024 M100.678 Pending SARS-CoV-2 (COVID 19) Negative INFLUENZA A Negative INFLUENZA B Negative RSV PCR Negative Normal [facility] Comment on above: Performed By: #### L 503.6005 #### [facility] [place] [address] [place], [address] MCV (mean corpuscular volume ) determinationOrdered By: Denilson Foley on 08-19-2024 MCV (RBC) [Entitic vol] 83.8 fL 80-94 [facility] Mean corpuscular hemoglobin (MCH) determinationOrdered By: Denilson Foley on 08-19-2024 MCH (RBC) [Entitic mass] 28.6 pg 27.0-32.0 [facility] Mean corpuscular hemoglobin concentration (MCHC) determinationOrdered By: Denilson Foley on 08-19-2024 MCHC (RBC) [Mass/Vol] 34.2 g/dL 32-36 [facility] Mean platelet volume determi nationOrdered By: Denilson Foley on 08-19-2024 Platelet mean volume (Bld) [Entitic vol] 10.0 fL 6.2-12.0 [facility] Microorganism identified Cx Nom (Unsp spec)Ordered By: Yadira Pruett on 08-19-2024 Respiratory Culture [facility] Microscopic analysis of urin e for red blood cells (RBC)Ordered By: Denilson Foley on 08-19-2024 Urine RBC 0-5 SEEN /hpf 0-5 [facility] Monocyte percentageOrdered B y: Denilson Foley on 08-19-2024 Monocytes/100 WBC (Bld) 3.0 % 0-10 [facility] Mucus LM Ql (Urine sed)Order ed By: Denilson Foley on 08-19-2024 Mucus Ql (Urine sed) 0 SEEN /hpf [facility] Neutrophil percentageOrdered By: Denilson Foley on 08-19-2024 Neutrophils/100 WBC (Bld) 89.9 % High 47-70 [facility] Nitrite Test strip Ql (U)Ord ered By: Denilson Foley on 08-19-2024 Nitrite Ql (U) Negative Negative [facility] Nucleated red blood cell per centageOrdered By: Denilson Foley on 08-19-2024 Nucleated RBC/100 WBC (Bld) [Ratio] 0 % 0-5 [facility] Partial Thromboplast Timeon 08-19-2024 aPTT Coag (Bld) [Time] 25.3 s Normal 24.1-36.2 [facility] Comment on above: Performed By: #### L 100.0100, L500.2500 #### [facility] [address] [place], [address] Platelet countOrdered By: Tomas Foley on 08-19-2024 Platelets (Bld) [#/Vol] 220 10*3/uL 150-450 [facility] Potassium (Unsp spec) [Mass/ Vol]Ordered By: Denilson Foley on 08-19-2024 Potassium [Moles/Vol] 4.1 mmol/L 3.3-5.1 [facility] Protein Test strip Ql (U)Ord ered By: Denilson Foley on 08-19-2024 Protein Ql (U) 30 mg/dl High Negative [facility] Prothrombin Time w/INRon INR Coag (PPP) [Relative time] 1.1 {INR} Normal [facility] Comment on above: Performed By: #### L 100.0100, L500.2500 #### [facility] [address] [place], [address] PT Coag (PPP) [Time] 14.7 s Normal 11.7-14.9 [facility] Comment on above: Performed By: #### L 100.0100, L500.2500 #### [facility] [address] [place], [address] Prothrombin timeOrdered By: Denilson Foley on 08-19-2024 PT Coag (PPP) [Time] 14.7 s 11.7-14.9 [facility] RBC Auto (Bld) [#/Vol]Ordere d By: Denilson Foley on 08-19-2024 RBC (Bld) [#/Vol] 5.55 10*6/uL 4.6-6.2 [facility] RESPIRATORY PANEL MOLECULARo n 08-19-2024 RP PANEL Normal Reference Ran ge = Not Detected Resp path DNA+RNA Pnl Resp CRISTINA+probe Nucleic acid amplification test method ADENOVIRUS Not Detected INFLUENZA A Not Detected INFLUENZA A (SUBTYPE H1) Not Detected INFLUENZA A (SUBTYPE H3) Not Detected INFLUENZA B Not Detected HUMAN METAPHNEUMO Not Detected PARAINFLUENZA 1 Not Detected PARAINFLUENZA 2 Not Detected PARAINFLUENZA 3 Not Detected PARAINFLUENZA 4 Not Detected RHINOVIRUS Not Detected RSV A Not Detected RSV B Not Detected Normal [facility] Comment on above: Performed By: #### M 100.633 #### [facility] [address] [place], [address] Respiratory pathogens DNA an d RNA panel CRISTINA+probe (Resp)Ordered By: Yadira Pruett on 08-19-2024 Respiratory Panel (PCR) [facility] Serum creatinine measurement (mass/volume)Ordered By: Denilson Foley on 08-19-2024 Creatinine [Mass/Vol] 1.18 mg/dL 0.70-1.20 [facility] Serum globulin measurementOr dered By: Denilson Foley on 08-19-2024 Globulin (S) [Mass/Vol] 3.2 g/dL 2.2-4.2 [facility] Serum glucose measurement (m ass/volume)Ordered By: Denilson Foley on 08-19-2024 Glucose [Mass/Vol] 437 mg/dL High 70-99 [facility] Serum or plasma alanine mcdonnell otransferase (ALT) measurementOrdered By: Denilson Foley on 08-19-2024 ALT [Catalytic activity/Vol] 36 U/L <47 [facility] Serum or plasma albumin jose urement (mass/volume)Ordered By: Denilson Foley on 08-19-2024 Albumin [Mass/Vol] 4.2 g/dL 3.4-4.8 [facility] Serum or plasma albumin/glob ulin mass ratioOrdered By: Denilson Foley on 08-19-2024 Albumin/Globulin [Mass ratio] 1.3 {ratio} 0.9-2.4 [facility] Serum or plasma alkaline uriel sphatase measurementOrdered By: Denilson Foley on 08-19-2024 ALP [Catalytic activity/Vol] 71 U/L 40-129 [facility] Serum or plasma calcium jose urement (mass/volume)Ordered By: Denilson Foley on 08-19-2024 Calcium [Mass/Vol] 8.8 mg/dL 7.6-11.0 [facility] Serum or plasma urea nitroge n measurement (mass/volume)Ordered By: Denilson Foley on 08-19-2024 Urea nitrogen [Mass/Vol] 22 mg/dL High 4-19 [facility] Sodium levelOrdered By: Denilson Foley on 08-19-2024 Sodium [Moles/Vol] 135 mmol/L 133-145 [facility] Stool enteric pathogen panel by probe and target amplification methodOrdered By: Case Paredes on 08-19-2024 Enteric Bacteriology Norovirus Abnormal [facility] Strep pneumoniae Antig(UR,CS F)on 08-19-2024 STPAG [] Negative Urine Presumptive negative for pneumococcal pneumonia, suggesting no current or recent pneumococcal infection. Infection due to S pneumoniae cannot be ruled out since the antigen present in the sample may be below the detection limit of the test. Strep pneumo Test Negative URINE (See interpretation below) Normal [facility] Comment on above: Performed By: #### L 503.6005 #### [facility] [address] [place], [address] Streptococcus pneumoniae ant igen assayOrdered By: Case Paredes on 08-19-2024 Streptococcus pneumoniae Antigen (M [facility] Total proteinOrdered By: Vilma Foley on 08-19-2024 Protein [Mass/Vol] 7.4 g/dL 5.9-8.4 [facility] Urinalysis, Completeon 08-19 RBC 0-5 SEEN Normal 0-5 [facility] Comment on above: Order Comment: CLEAN CATCH Performed By: #### L 100.0100, L500.2500 #### [facility] [address] [place], [address] WBC 0-5 SEEN Normal 0-5 [facility] Comment on above: Order Comment: CLEAN CATCH Performed By: #### L 100.0100, L500.2500 #### [facility] [address] [place], [address] BACTERIA 0 SEEN Normal None Seen [facility] Comment on above: Order Comment: CLEAN CATCH Performed By: #### L 100.0100, L500.2500 #### [facility] [address] [place], [address] EPI,SQUAMOUS 0 SEEN Normal 0-5 [facility] Comment on above: Order Comment: CLEAN CATCH Performed By: #### L 100.0100, L500.2500 #### [facility] [address] [place], [address] Mucus Ql (Urine sed) 0 SEEN Normal [facility] Comment on above: Order Comment: CLEAN CATCH Performed By: #### L 100.0100, L500.2500 #### [facility] [address] [place], [address] Urine blood detectionOrdered By: Denilson Foley on 08-19-2024 Urine Occult Blood 10 /ul High Negative [facility] Urine clarityOrdered By: Vilma Foley on 08-19-2024 Clarity (U) Clear Clear [facility] Urine color determinationOrd ered By: Denilson Foley on 08-19-2024 Color (U) Straw Yellow [facility] Urine cultureOrdered By: Vilma Foley on 08-19-2024 Bacteria identified Cx Nom (U) Culture exhibits no growth. [facility] Urine leukocyte esterase det ection by dipstickOrdered By: Denilson Foley on 08-19-2024 Leukocyte esterase Test strip Ql (U) Negative Negative [facility] Urine pHOrdered By: Denilson leone on 08-19-2024 pH (U) 5.0 [pH] 5.0 - 8.0 [facility] Urine sediment bacteria coun t by microscopy (number/high power field)Ordered By: Denilson Foley on 08-19-2024 Bacteria LM.HPF (Urine sed) [#/Area] 0 /[HPF] None Seen [facility] Urine specific gravity measu rementOrdered By: Denilson Foley on 08-19-2024 Specific gravity (U) [Rel density] 1.015 1.002-1.030 [facility] Urobilinogen Ql (U)Ordered B y: Denilson Foley on 08-19-2024 Urine Urobilinogen Normal mg/dl Normal [facility] White blood cell (WBC) count Ordered By: Denilson Foley on 08-19-2024 WBC (Bld) [#/Vol] 14.5 10*3/uL High 4.4-11.0 [facility] White blood cell countOrdere d By: Denilson Foley on 08-19-2024 Urine WBC 0-5 SEEN /hpf 0-5 [facility] aPTT Coag (PPP) [Time]Ordere d By: Denilson Foley on 08-19-2024 aPTT Coag (Bld) [Time] 25.3 s 24.1-36.2 [facility] CNOVon 08-05-2024 CNOV Office Visit (NEMOWS ) -- ADRIELSANTOS Kareem ([id number]) 1940 M Date Time Provider Department 08/05/24 12:30 PM ALETHA REYNOLDS During your visit today, we recorded the following information about you: Pulse Blood pressure Weight 77/minute 131/72 88.2 kg Aletha Reynolds PA-C 08/05/2024 1:32 PM Signed [facility] for General Neurology Name: Santos Morel Age: [age] year old Gender: male Primary Care Provider: Yvan Rahman MD Consult requested for gait change by Yvan Rahman. Recommendations will be communicated via shared medical record or US mail. Chief Complaint:Established Patient (Abnormal gait, shuffles per family, tremor in left x1 yr) 08/05/2024 - General Neurology, Aletha Reynolds PA-C ASSESSMENT ASSESSMENT/PLAN: 1. Paresthesia of skin - ICD9: 782.0, ICD10: R20.2 (primary diagnosis) 2. Neuropathy - ICD9: 355.9, ICD10: G62.9 3. Shuffling gait - ICD9: 781.2, ICD10: R26.89 Patient with years of progressive gait change and imbalance. Resulting in multiple falls a year, typically outside due to instability. Also noted to have an occasional tremor typically in the morning per and very infrequent. There was some concerns for possible parkinsonism, patient does have minimal expressions to the face in a quiet voice but notes this has been unchanged in his baseline. No rigidity on exam, does have a shuffling gait but also with significant signs of neuropathy throughout the upper and lower extremities in a stocking glove distribution. Normal arm swing on exam. Does have some very minimal decrease rapid alternating movements on the left upper and lower extremity but not significant. Minimal Parkinson's symptoms as well, does have some REM sleep activity but otherwise no concerning signs of Parkinson's disease. At this time, concern primarily for neuropathy in the lower extremities, has had a borderline low B12 fluctuating for the last 3 years based on laboratory studies. Most recent was 380 a few weeks ago. Patient also with longstanding history of diabetes which has been fluctuating in A1c, most recent was 7.3 in June as well. Discussed an EMG to rule out alternative etiology for gait abnormality like lumbar stenosis versus neuropathy and patient is amenable to this. Will also obtain SPEP to ensure is no signs of gammopathy contributing to sensory changes on exam. Instructed patient to start supplementing B12 and will redraw in 6 months. Will continue to monitor symptoms as well, encouraged him to reach out should symptoms worsen or he have any new symptoms. Patient and agreeable to treatment plan of care at this time, questions were answered. Patient to follow-up in 5 months. Aletha Reynolds PA-C Encounter Diagnosis ICD-10-CM 1. Paresthesia of skin R20.2 PROTEIN ELECTROPHORESIS SERUM W/INTERP EMG(NEURO/NI) 2. Resting tremor G25.2 left thumb and pinkie 3. Bradykinesia R25.8 No follow-ups on file. Chart, labs,and relevant images reviewed. HPI: Concern for bradykinesia and tremor at PCP appt on 07/16/24. Patient presents with his for concern of gait change. noting this has been ongoing and worsening over the last few years. Notes that he falls a few times a year, this is getting worse as well over the last few years. Typically falls or outside and due to imbalance. notes that he can no longer walk a great distance and seems to fatigue easily. Patient does not feel that his walk is changed and does not have any concerns today. Denies any chronic back pain or lumbar issues. Does report numbness and tingling in the toes that is constant, has longstanding history of diabetes mellitus with fluctuating glucose control, last A1c was 7.3 in June. Never been diagnosed with neuropathy in the feet, does not take B complex, no heavy alcohol use or chemotherapy exposure. Does note that he was exposed to some chemicals while working 30 years at [employer]. Patient also with occasional shaking in the left hand or bilateral hands. notes that this is typically in the morning, brief and very infrequent. No resting tremor. Patient denies any difficulty with movements, anosmia, micrographia, voice change, apathy, constipation issue. Does occasionally kick in his sleep this has been an ongoing issue for many years and is very infrequent. Has fallen out of bed once in his life. No family history of Parkinson's disease or tremor, no neurologic disease in the family that he knows of. Patient's voice is quite today but notes this has been his voice his whole life. Denies any hallucinations or syncope. Review of Systems ACTIVE PROBLEM LIST Unspecified hearing loss Contact Dermatitis and Other Eczema, Due to Unspecified Cause Family history of ischemic heart disease Diverticulosis of Large Intestine Actinic Kerato (more content not included)... Normal [facility] CNOVon 07-16-2024 CNOV Office Visit (FAMPWS ) -- SANTOS MOREL ([id number]) 1940 M Date Time Provider Department 07/16/24 11:20 AM YVAN RAHMAN FAMPWS During your visit today, we recorded the following information about you: Pulse Blood pressure Weight Height 108/minute 130/64 88.5 kg 1.784 m Yvan Rahman MD 07/16/2024 12:09 PM Addendum Consider getting the RSV vaccine from a local pharmacy. We increased your levothyroxine 175 mcg to taking it: one tab Sat-Sat and two on Saturday and Saturday Please get repeat thyroid lab and Magnesium lab on or after 09/15/24 We are going to continue the blue pill in the AM (sitagliptin/metformin) and stop the metformin 500 mg two at night. To see if the diarrhea reduces. We will replace the night time metformin with Actos (pioglitazone) 30 mg a day. You can take it at night or in the AM. It does not matter. Please get labs done on or after 01/01/2025 prior to your next visit. Screening schedule The following prevention plan is recommended: Depression Screening Never done Anxiety Screening Never done RSV Vaccine(1 - 1-dose 75+ series) Never done Diabetic Foot Exam due on 08/24/2023 Influenza Vaccine(1) due on 01/12/2024 Covid-19 Vaccine( season) due on 01/12/2024 Advance Directive Discussion due on 05/13/2024 WHAT YOU CAN DO TO PREVENT FALLS Many falls can be prevented. By making some changes, you can lower your chances of falling. Four things YOU can do to prevent falls for you* and your caregiver 1. Begin a regular exercise program Exercise is one of the most important ways to lower your chances of falling. It makes you stronger and helps you feel better. Exercises that improve balance and coordination (like Mannie Chi) are the most helpful. Lack of exercise leads to weakness and increases your chances of falling. Ask your doctor or health care provider about the best type of exercise program for you. 2. Have your health care provider review your medicines Have your doctor or pharmacist review all the medicines you take, even qgoh-hwl-ythodko medicines. As you get older, the way medicines work in your body can change. Some medicines, or combinations of medicines, can make you sleepy or dizzy and can cause you to fall. 3. Have your vision checked Have your eyes checked by an eye doctor at least once a year. You may be wearing the wrong glasses or have a condition like glaucoma or cataracts that limits your vision. Poor vision can increase your chances of falling. 4. Make your home safer About half of all falls happen at home. To make your home safer: Remove things you can trip over (like papers, books, clothes, and shoes) from stairs and places where you walk. Remove small throw rugs or use double-sided tape to keep the rugs from slipping. Keep items you use often in cabinets you can reach easily without using a step stool. Have grab bars put in next to your toilet and in the tub or shower. Use non-slip mats in the bathtub and on shower floors. Improve the lighting in your home. As you get older, you need brighter lights to see well. Hang light-weight curtains or shades to reduce glare. Have handrails and lights put in on all staircases. Wear shoes both inside and outside the house. Avoid going barefoot or wearing slippers. For more information, contact: Centers for Disease Control and Prevention www.cdc.gov/injury * This information may not apply if you have certain medical conditions. Yvan Rahman MD 07/16/2024 12:35 PM Signed Santos Morel is a 84 year old male here for a Medicare wellness visit. Medicare Health Risk Assessment General Health Good Exercise: Minutes/Day 0 min Exercise: Days/Week 0 days Alcohol: Daily Use Never Alcohol: Drinks/Day Patient does not drink Alcohol: 6 or more drinks Never Feel off balance Yes Concerns: Teeth/Dentures No Concerns: Sexual function No Troubled by feelings None of the above Frequency: Eating healthy diet Several days ADLs requiring help None of the above Safety precautions in home/vehicle Yes Smoke, vape, chews tobacco No Difficulty hearing Yes, I wear a hearing aid Difficulty seeing No Current Providers Specialists: I have reviewed specialist-related care of the patient in the medical record. Current care team: Patient Care Team: Yvan Rahman MD as PCP - General (Family Medicine) Bernice Maier APRN.ALAINA as Carpenter Helper (Family Medicine) Zahra Arias PA-C as Carpenter Helper (Family Medicine) Optho Medical/Family history review Reviewed and updated problem list, medical/surgical/family/so cial history, medications, and allergies. Opioid use review Opioid Medications (last 90 days) No data to display Anxiety/Depression screening Recommendation: no further intervention at this time Cognitive screening Mini Cog Score: 4 Cognitive screening r (more content not included)... Normal [facility] ALBUMIN/CREATININE RATIO, UR INEon 06-23-2024 Albumin Unsp time DL <= 20 mg/L (U) [Mass/Time] 35.9 mg/L Normal [facility] Comment on above: Order Comment: Speci men Type: URINE SPECIMENOrdering Facility: [facility] Address: [address] [place] [address] Performed By: #### U ACR ####[employer] [facility] LABORATORYCLIA [id number] [address] [place] [facility] Albumin/Creatinine (U) [Mass ratio] 17 mg/g Normal <30 [facility] Comment on above: Order Comment: Speci men Type: URINE SPECIMENOrdering Facility: [facility] Address: [address] [place] [address] Result Comment: Adul t Male and Female Nephrotic Criteria: <30 mg/g is considered normal to mildly increased 30-300 mg/g is considered moderately increased >300 mg/g is considered severely increased KDIGO. (2013). KDIGO 2012 Clinical Practice Guideline for the Evaluation and Management of Chronic Kidney Disease. Official Journal of the International Society of Nephrology, 3(1), 1-150. Performed By: #### U ACR ####[employer] [facility] LABORATORYCLIA [id number] [address] [place] Creatinine (U) [Mass/Vol] 209.6 mg/dL Normal 46.8-314.5 [facility] Comment on above: Order Comment: Speci men Type: URINE SPECIMENOrdering Facility: [facility] Address: [address] [place] [address] Performed By: #### U ACR ####[employer] TechnologiesJ[facility] LABORATORYCLIA [id number] [place] [id number] [place] CBC W Auto Differential pane l (Bld)on 06-23-2024 Basophils (Bld) [#/Vol] 0.03 10*3/uL Normal <0.11 [facility] Comment on above: Order Comment: Speci men Type: BLOOD SPECIMENOrdering Facility: [facility] Address: [address] [place] [address] Performed By: #### 5 7021-8 ####[facility] LABCLIA [id number] [place] [address] [place] Basophils/100 WBC (Bld) 0.4 % Normal [facility] Comment on above: Order Comment: Speci men Type: BLOOD SPECIMENOrdering Facility: [facility] Address: [address] [place] [address] Performed By: #### 5 7021-8 ####[facility] LABCLIA [id number] [place] [address] [place] Differential cell count method Nom (Bld) Auto Normal [facility] Comment on above: Order Comment: Speci men Type: BLOOD SPECIMENOrdering Facility: [facility] Address: [address] [place] [address] Performed By: #### 5 7021-8 ####[facility] LABCLIA [id number] [place] [address] [place] Eosinophils (Bld) [#/Vol] 0.16 10*3/uL Normal <0.46 [facility] Comment on above: Order Comment: Speci men Type: BLOOD SPECIMENOrdering Facility: [facility] Address: [address] [place] [address] Performed By: #### 5 7021-8 ####[facility] LABCLIA [id number] [place] [address] [place] Eosinophils/100 WBC (Bld) 2.2 % Normal [facility] Comment on above: Order Comment: Speci men Type: BLOOD SPECIMENOrdering Facility: [facility] Address: [address] [place] [address] Performed By: #### 5 7021-8 ####[facility] LABCLIA [id number] [place] [address] [place] Erythrocyte distribution width (RBC) [Ratio] 13.1 % Normal 11.5-15.0 [facility] Comment on above: Order Comment: Speci men Type: BLOOD SPECIMENOrdering Facility: [facility] Address: [address] [place] [address] Performed By: #### 5 7021-8 ####[facility] LABIA [id number] [place] [address] [place] Hematocrit (Bld) [Volume fraction] 42.7 % Normal 39.0-51.0 [facility] Comment on above: Order Comment: Speci men Type: BLOOD SPECIMENOrdering Facility: [facility] Address: [address] [place] [address] Performed By: #### 5 7021-8 ####[facility] LABIA [id number] [place] [address] [place] Hemoglobin (Bld) [Mass/Vol] 14.1 g/dL Normal 13.0-17.0 [facility] Comment on above: Order Comment: Speci men Type: BLOOD SPECIMENOrdering Facility: [facility] Address: [address] [place] [address] Performed By: #### 5 7021-8 ####[facility] LABIA [id number] [place] [address] [place] Immature granulocytes (Bld) [#/Vol] 0.04 10*3/uL Normal <0.10 [facility] Comment on above: Order Comment: Speci men Type: BLOOD SPECIMENOrdering Facility: [facility] Address: [address] [place] [address] Performed By: #### 5 7021-8 ####[facility] LABIA [id number] [place] [address] [place] Immature granulocytes/100 WBC (Bld) 0.5 % Normal [facility] Comment on above: Order Comment: Speci men Type: BLOOD SPECIMENOrdering Facility: [facility] Address: [address] [place] [address] Performed By: #### 5 7021-8 ####[facility] LABCLIA [id number] [place] [address] [place] Lymphocytes (Bld) [#/Vol] 1.50 10*3/uL Normal 1.00-4.00 [facility] Comment on above: Order Comment: Speci men Type: BLOOD SPECIMENOrdering Facility: [facility] Address: [address] [place] [address] Performed By: #### 5 7021-8 ####[facility] LABCLIA [id number] [place] [address] [place] Lymphocytes/100 WBC (Bld) 20.3 % Normal [facility] Comment on above: Order Comment: Speci men Type: BLOOD SPECIMENOrdering Facility: [facility] Address: [address] [place] [address] Performed By: #### 5 7021-8 ####[facility] LABIA [id number] [place] [address] [place] MCH (RBC) [Entitic mass] 28.5 pg Normal 26.0-34.0 [facility] Comment on above: Order Comment: Speci men Type: BLOOD SPECIMENOrdering Facility: [facility] Address: [address] [place] [address] Performed By: #### 5 7021-8 ####[facility] LABCLIA [id number] [place] [address] [place] MCHC (RBC) [Mass/Vol] 33.0 g/dL Normal 30.5-36.0 [facility] Comment on above: Order Comment: Speci men Type: BLOOD SPECIMENOrdering Facility: [facility] Address: [address] [place] [address] Performed By: #### 5 7021-8 ####[facility] LABIA [id number] [place] [address] [place] MCV (RBC) [Entitic vol] 86.3 fL Normal 80.0-100.0 [facility] Comment on above: Order Comment: Speci men Type: BLOOD SPECIMENOrdering Facility: [facility] Address: [address] [place] [address] Performed By: #### 5 7021-8 ####[facility] LABCLIA [id number] [place] [address] [place] Monocytes (Bld) [#/Vol] 0.44 10*3/uL Normal <0.87 [facility] Comment on above: Order Comment: Speci men Type: BLOOD SPECIMENOrdering Facility: [facility] Address: [address] [place] [address] Performed By: #### 5 7021-8 ####[facility] LABCLIA [id number] [place] [address] [place] Monocytes/100 WBC (Bld) 6.0 % Normal [facility] Comment on above: Order Comment: Speci men Type: BLOOD SPECIMENOrdering Facility: [facility] Address: [address] [place] [address] Performed By: #### 5 7021-8 ####[facility] LABCLIA [id number] [place] [address] [place] Neutrophils (Bld) [#/Vol] 5.21 10*3/uL Normal 1.45-7.50 [facility] Comment on above: Order Comment: Speci men Type: BLOOD SPECIMENOrdering Facility: [facility] Address: [address] [place] [address] Performed By: #### 5 7021-8 ####[facility] LABCLIA [id number] [place] [address] [place] Neutrophils/100 WBC (Bld) 70.6 % Normal [facility] Comment on above: Order Comment: Speci men Type: BLOOD SPECIMENOrdering Facility: [facility] Address: [address] [place] [address] Performed By: #### 5 7021-8 ####[facility] LABCLIA [id number] [place] [address] [place] Nucleated RBC (Bld) [#/Vol] 10*3/uL Normal <0.01 [facility] Comment on above: Order Comment: Speci men Type: BLOOD SPECIMENOrdering Facility: [facility] Address: [address] [place] [address] Performed By: #### 5 7021-8 ####[facility] LABIA [id number] [place] [address] [place] Nucleated RBC/100 WBC (Bld) [Ratio] 0.0 /100 WBC Normal [facility] Comment on above: Order Comment: Speci men Type: BLOOD SPECIMENOrdering Facility: [facility] Address: [address] [place] [address] Performed By: #### 5 7021-8 ####[facility] LABIA [id number] [place] [address] [place] Platelet mean volume (Bld) [Entitic vol] 9.8 fL Normal 9.0-12.7 [facility] Comment on above: Order Comment: Speci men Type: BLOOD SPECIMENOrdering Facility: [facility] Address: [address] [place] [address] Performed By: #### 5 7021-8 ####[facility] LABIA [id number] [place] [address] [place] Platelets (Bld) [#/Vol] 168 10*3/uL Normal 150-400 [facility] Comment on above: Order Comment: Speci men Type: BLOOD SPECIMENOrdering Facility: [facility] Address: [address] [place] [address] Performed By: #### 5 7021-8 ####[facility] LABCLIA [id number] [place] [address] [place] RBC (Bld) [#/Vol] 4.95 10*6/uL Normal 4.20-6.00 [facility] Comment on above: Order Comment: Speci men Type: BLOOD SPECIMENOrdering Facility: [facility] Address: [address] [place] [address] Performed By: #### 5 7021-8 ####[facility] LABCLIA [id number] [place] [address] [place] WBC (Bld) [#/Vol] 7.38 10*3/uL Normal 3.70-11.00 [facility] Comment on above: Order Comment: Speci men Type: BLOOD SPECIMENOrdering Facility: [facility] Address: [address] [place] [address] Performed By: #### 5 7021-8 ####[facility] LABCLIA [id number] [place] [address] [place] Comprehensive metabolic 2000 panelon 06-23-2024 Albumin [Mass/Vol] 4.2 g/dL Normal 3.9-4.9 [facility] Comment on above: Order Comment: Speci men Type: BLOOD SPECIMENOrdering Facility: [facility] Address: [address] [place] [address] Performed By: #### 2 132-9, 11668-9 ####[facility] LABCLIA [id number] [place] [address] [place] ALP [Catalytic activity/Vol] 68 U/L Normal 38-113 [facility] Comment on above: Order Comment: Speci men Type: BLOOD SPECIMENOrdering Facility: [facility] Address: [address] [place] [address] Performed By: #### 2 132-9, 16804-2 ####[facility] LABCLIA [id number] [place] [address] [place] ALT [Catalytic activity/Vol] 33 U/L Normal 10-54 [facility] Comment on above: Order Comment: Speci men Type: BLOOD SPECIMENOrdering Facility: [facility] Address: [address] [place] [id number] Performed By: #### 2 132-9, 17021-4 ####[facility] LABCLIA [id number] [address] [address] [place] Anion gap [Moles/Vol] 14 mmol/L Normal 8-15 [facility] Comment on above: Order Comment: Speci men Type: BLOOD SPECIMENOrdering Facility: [facility] Address: [address] [place] [address] Performed By: #### 2 132-9, 71513-8 ####[facility] LABCLIA [id number] [place] [address] [place] AST [Catalytic activity/Vol] 24 U/L Normal 14-40 [facility] Comment on above: Order Comment: Speci men Type: BLOOD SPECIMENOrdering Facility: [facility] Address: [address] [place] [address] Performed By: #### 2 132-9, 18605-4 ####[facility] LABCLIA [id number] [place] [address] [place] Bilirubin [Mass/Vol] 0.8 mg/dL Normal 0.2-1.3 [facility] Comment on above: Order Comment: Speci men Type: BLOOD SPECIMENOrdering Facility: [facility] Address: [address] [place] [id number] Performed By: #### 2 132-9, 77807-6 ####[facility] LABCLIA [id number] [place] [address] [place] Calcium [Mass/Vol] 9.2 mg/dL Normal 8.5-10.2 [facility] Comment on above: Order Comment: Speci men Type: BLOOD SPECIMENOrdering Facility: [facility] Address: [address] [place], [place] [address] Performed By: #### 2 132-9, 19045-7 ####[facility] LABCLIA [id number] [address] [address] [place] Chloride [Moles/Vol] 101 mmol/L Normal 98-107 [facility] Comment on above: Order Comment: Speci men Type: BLOOD SPECIMENOrdering Facility: [facility] Address: [address] [place] [address] Performed By: #### 2 132-9, 26308-0 ####[facility] LABCLIA [id number] [place] [address] [place] CO2 [Moles/Vol] 25 mmol/L Normal 22-30 [facility] Comment on above: Order Comment: Speci men Type: BLOOD SPECIMENOrdering Facility: [facility] Address: [address] [place] [address] Performed By: #### 2 132-9, 59950-3 ####[facility] LABCLIA [id number] [place] [id number] [place] Creatinine [Mass/Vol] 1.08 mg/dL Normal 0.73-1.22 [facility] Comment on above: Order Comment: Speci men Type: BLOOD SPECIMENOrdering Facility: [facility] Address: [address] [place] [address] Performed By: #### 2 132-9, 72801-6 ####[facility] LABCLIA [id number] [place] [id number] [place] Creatinine and Glomerular filtration rate.predicted panel (S/P/Bld) 69 mL/min/1.73m??? Normal >=60 [facility] Comment on above: Order Comment: Speci men Type: BLOOD SPECIMENOrdering Facility: [facility] Address: [address] [place] [address] Result Comment: Karlie mated Glomerular Filtration Rate (eGFR) is calculated using the 2020 CKD-EPI creatinine equation. This equation utilizes serum creatinine, sex, and age as parameters. The creatinine assay has traceable calibration to isotope dilution-mass spectrometry. Refer to KDIGO guidelines for clinical interpretation. In patients with unstable renal function, e.g. those with acute kidney injury, the eGFR may not accurately reflect actual GFR. Performed By: #### 2 132-9, ####[facility] LABCLIA [id number] [place] [address] [place] Glucose [Mass/Vol] 282 mg/dL High 74-99 [facility] Comment on above: Order Comment: Ronnie israel Type: BLOOD SPECIMENOrdering Facility: [facility] Address: [address] [place] [address] Result Comment: The [place] Diabetes [employer] (ADA) provides guidance for cutoff values for fasting glucose and random glucose. The ADA defines fasting as no caloric intake for at least 8 hours. Fasting plasma glucose results between 100 to 125 mg/dL indicate increased risk for diabetes (prediabetes). Fasting plasma glucose results greater than or equal to 126 mg/dL meet the criteria for diagnosis of diabetes. In the absence of unequivocal hyperglycemia, results should be confirmed by repeat testing. In a patient with classic symptoms of hyperglycemia or hyperglycemic crisis, random plasma glucose results greater than or equal to 200 mg/dL meet the criteria for diagnosis of diabetes. Reference: Standards of Medical Care in Diabetes 2016, [place] [employer]. Diabetes Care. 2016.39(Suppl 1). Performed By: #### 2 132-9, ####[facility] LABCLIA [id number] [place] [id number] [place] Potassium [Moles/Vol] 4.6 mmol/L Normal 3.7-5.1 [facility] Comment on above: Order Comment: Ronnie israel Type: BLOOD SPECIMENOrdering Facility: [facility] Address: [address] [place] [address] Performed By: #### 2 132-9, ####[facility] LABCLIA [id number] [place] [address] [place] Protein [Mass/Vol] 6.5 g/dL Normal 6.3-8.0 [facility] Comment on above: Order Comment: Speci men Type: BLOOD SPECIMENOrdering Facility: [facility] Address: [address] [place] [address] Performed By: #### 2 132-9, 04167-9 ####[facility] LABCLIA [id number] [place] [id number] [place] Sodium [Moles/Vol] 140 mmol/L Normal 136-144 [facility] Comment on above: Order Comment: Speci men Type: BLOOD SPECIMENOrdering Facility: [facility] Address: [address] [place] [address] Performed By: #### 2 132-9, 34614-5 ####[facility] LABCLIA [id number] [place] [id number] [place] Urea nitrogen [Mass/Vol] 20 mg/dL Normal 9-24 [facility] Comment on above: Order Comment: Speci men Type: BLOOD SPECIMENOrdering Facility: [facility] Address: [address] [place] [address] Performed By: #### 2 132-9, ####[facility] LABCLIA [id number] [place] [address] [place] Free PSA [Mass/Vol]on 2024 Free PSA/Total PSA [Mass fraction] 15 % Normal [facility] Comment on above: Order Comment: Speci men Type: BLOOD SPECIMENOrdering Facility: [facility] Address: [address] [place] [address] Result Comment: Tota l and free PSA test methodology used is the Electrochemiluminescence Immunoassay by [employer]. Total or free PSA values by differing methodologies cannot be interchanged. The below table lists the probability of finding prostate cancer upon needle biopsy, for men 50 years or older and total PSA concentrations from 4.0-10.0 ng/mL. Results should be interpreted within the broader clinical context. Free PSA(%) 50-59 years 60-69 years >69 years <11 49.2% 57.5% 64.5% 11-18 26.9% 33.9% 40.8% 19-25 18.3% 23.9% 29.7% >25 9.1% 12.2% 15.8% Performed By: #### 1 9123-9, LIPKASH, 12696-1, 6-3 ####[facility] LABIA [id number] [place] [address] [place] Prostate specific Ag [Mass/Vol] 3.83 ng/mL High <2.60 [facility] Comment on above: Order Comment: Speci men Type: BLOOD SPECIMENOrdering Facility: [facility] Address: [address] [place] [address] [place] [address] Result Comment: Vic kareem PSA test methodology used is the Electrochemiluminescence Immunoassay by [employer]. Total PSA values by differing methodologies cannot be interchanged. For an individual patient, the significance of a PSA level should be interpreted in a broad clinical context, including age, race, family history, digital rectal exam, prostate size, results of prior testing (prostate biopsy, free PSA, PCA3), and use of 5-alpha reductase inhibitors. Considering the high incidence of asymptomatic cancer in the general population that may not pose an ultimate risk to a patient, the decision to recommend urological evaluation or prostate biopsy should be individualized after consideration of all these factors. REFERENCE: Iris Villagomez M.D., M.P.H., Og Escobar M.D., Ph.D., Cam Vogel M.D., Chinyere Gibbs, M.P.H., Edilma Ag, Vineet. Effect of Verification Bias on Screening for Prostate Cancer by Measurement of Prostatic Specific Antigen. N Engl J Med 2003,349:335-42. Performed By: #### 1 9123-9, YESENIA, 07821-5, 6-3 ####[facility] LABCLIA [id number] [address] [address] [place] HbA1c (Bld)on 06-23-2024 Average glucose Estimated from glycated hemoglobin (Bld) [Mass/Vol] 166 mg/dL Normal [facility] Comment on above: Order Comment: Ronnie israel Type: BLOOD SPECIMENOrdering Facility: [facility] Address: [address] [place] [address] Result Comment: eAG: (Estimated average glucose) is a calculated value from HgbA1c and is customer service representative of the average blood glucose level in the last 2-3 month period. Performed By: #### 5 5454-3 ####[facility] LABCLIA [id number] [place] [address] [place] HbA1c (Bld) [Mass fraction] 7.4 % High 4.3-5.6 [facility] Comment on above: Order Comment: Ronnie israel Type: BLOOD SPECIMENOrdering Facility: [facility] Address: [address] [place] [address] Result Comment: Amer ican Diabetes Association guidelines indicate that patients with HgbA1c in the range 5.7-6.4% are at increased risk for development of diabetes, and intervention by lifestyle modification may be beneficial. HgbA1c greater or equal to 6.5% is considered diagnostic of diabetes. Performed By: #### 5 5454-3 ####[facility] LABCLIA [id number] [place] [address] [place] LIPID PANEL, NONFASTINGon Cholesterol [Mass/Vol] 103 mg/dL Normal <200 [facility] Comment on above: Order Comment: Ronnie israel Type: BLOOD SPECIMENOrdering Facility: [facility] Address: [address] [place] [address] Result Comment: <200 mg/dL, Desirable 200-239 mg/dL, Borderline high >239 mg/dL, High Performed By: #### 1 9123-9, LIPNF, 38589-4, 3016-3 ####[facility] LABCLIA [id number] [place] [address] [place] HDL CHOLESTEROL, NF 38 mg/dL Low >39 [facility] Comment on above: Order Comment: Speci men Type: BLOOD SPECIMENOrdering Facility: [facility] Address: [address] [place] [address] Result Comment: 40-5 9 mg/dL, Acceptable >59 mg/dL, High: Negative risk factor for coronary heart disease <40 mg/dL, Low: Positive risk factor for coronary heart disease Performed By: #### 1 9123-9, LIPNF, 17717-0, 3016-3 ####[facility] LABCLIA [id number] [address] OF [facility] LDL CHOLESTEROL, NF 42 mg/dL Normal <100 [facility] Comment on above: Order Comment: Ronnie israel Type: BLOOD SPECIMENOrdering Facility: [facility] Address: [address] [place] [address] Result Comment: <100 mg/dL, Optimal 100-129 mg/dL, Near optimal/above optimal 130-159 mg/dL, Borderline high 160-189 mg/dL, High >189 mg/dL, Very high Secondary prevention optimal LDL Cholesterol levels are recommended to be < 70 mg/dL Performed By: #### 1 9123-9, LIPNF, 65763-6, 3016-3 ####[facility] LABCLIA [id number] [address] [place] LDL/HDL RATIO, NF 1.11 mg/dL Normal <2.54 [facility] Comment on above: Order Comment: Ronnie israel Type: BLOOD SPECIMENOrdering Facility: [facility] Address: [address] [place] [address] Result Comment: Refe rence: 1. National Cholesterol Education Program ATP III Guideline At-A-Glance Quick Desk Reference: National Heart, Lung, and Blood [place]. National Institutes of Health. 2001: NIH Publication No. 01-3305. 2. An International Atherosclerosis Society position paper: global recommendations for the management of dyslipidemia: executive summary, Atherosclerosis. 2014: 232(2):410-413. Performed By: #### 1 9123-9, LIPNF, 45902-7, 3016-3 ####[facility] LABCLIA [id number] [place] [address] [place] NON HDL CHOL, NF 65 mg/dL Normal <130 [facility] Comment on above: Order Comment: Speci men Type: BLOOD SPECIMENOrdering Facility: [facility] Address: [address] [place] [address] Result Comment: <130 mg/dL, Optimal 130-159 mg/dL, Near optimal/above optimal 160-189 mg/dL, Borderline high 190-219 mg/dL, High >219 mg/dL, Very high Secondary prevention optimal non HDL Cholesterol levels are recommended to be <100 mg/dL Performed By: #### 1 9123-9, LIPNF, 50389-8, 3016-3 ####[facility] LABCLIA [id number] [place] [address] [place] T CHOL/HDL RATIO NF 2.71 mg/dL Normal <5.10 [facility] Comment on above: Order Comment: Speci men Type: BLOOD SPECIMENOrdering Facility: [facility] Address: [address] [place] [address] Performed By: #### 1 9123-9, LIPNF, 62193-5, 3016-3 ####[facility] LABCLIA [id number] [place] [address] [place] TRIGLYCERIDES, NF 114 mg/dL Normal <150 [facility] Comment on above: Order Comment: Speci men Type: BLOOD SPECIMENOrdering Facility: [facility] Address: [address] [place] [address] Result Comment: <150 mg/dL, Normal 150-199 mg/dL, Borderline high 200-499 mg/dL, High >499 mg/dL, Very high Performed By: #### 1 9123-9, LIPNF, 71204-0, 3016-3 ####[facility] LABCLIA [id number] [place] [address] [place] VLDL CHOLESTEROL, NF 23 mg/dL Normal <30 [facility] Comment on above: Order Comment: Speci men Type: BLOOD SPECIMENOrdering Facility: [facility] Address: [address] [place] [address] Performed By: #### 1 9123-9, LIPNF, 45455-0, 3016-3 ####[facility] LABCLIA [id number] [place] [address] [place] Magnesium SerPl-mCncon 06-23 Magnesium [Mass/Vol] 1.4 mg/dL Low 1.7-2.3 [facility] Comment on above: Order Comment: Speci men Type: BLOOD SPECIMENOrdering Facility: [facility] Address: [address] [place] [address] Performed By: #### 1 9123-9, LIPNF, 90490-0, 3016-3 ####[facility] LABCLIA [id number] [place] [address] [place] TSH SerPl-aCncon 06-23-2024 TSH Qn 2.130 m[IU]/L Normal 0.270-4.200 [facility] Comment on above: Order Comment: Speci men Type: BLOOD SPECIMENOrdering Facility: [facility] Address: [address] [place] [address] Performed By: #### 1 9123-9, LIPNF, 89293-5, 3016-3 ####[facility] LABCLIA [id number] [place] [address] [place] Thyroglobulin and Thyrogobul in Ab panelon 06-23-2024 Thyroglobulin Ab Qn [IU]/mL Normal <4.0 [facility] Comment on above: Order Comment: Speci men Type: BLOOD SPECIMENOrdering Facility: [facility] Address: [address] [place] [address] Result Comment: The Thyroglobulin Antibody test was performed using the [employer] DXI paramagnetic particle chemiluminescent immunoassay method. Results obtained with different assay methods or kits cannot be used interchangeably. Performed By: #### 5 7780-9 ####[facility] LABIA [id number] [place] [address] [place] THYROGLOBULIN, SERUM 4.7 ng/mL Normal 1.6-50.0 [facility] Comment on above: Order Comment: Speci men Type: BLOOD SPECIMENOrdering Facility: [facility] Address: [address] [place] [address] Result Comment: The Thyroglobulin test was performed using the [employer]el DXI paramagnetic particle chemiluminescent immunoassay method. Results obtained with different assay methods or kits cannot be used interchangeably. Performed By: #### 5 7780-9 ####[facility] LABIA [id number] [place] [address] [place] Urinalysis complete panel (U )on 06-23-2024 Bacteria LM.HPF (Urine sed) [#/Area] Negative Normal Negative [facility] Comment on above: Order Comment: Speci men Type: URINE SPECIMENOrdering Facility: [facility] Address: [address] [place] [address] Performed By: #### 2 4356-8 ####[facility] LABIA [id number] [place] [address] [place] Bilirubin Ql (U) Negative Normal Negative [facility] Comment on above: Order Comment: Speci men Type: URINE SPECIMENOrdering Facility: [facility] Address: [address] [place] [address] Performed By: #### 2 4356-8 ####[facility] LABIA [id number] [place] [address] [place] Clarity (Unsp spec) Clear Normal Clear [facility] Comment on above: Order Comment: Speci men Type: URINE SPECIMENOrdering Facility: [facility] Address: [address] [place] [address] Performed By: #### 2 4356-8 ####[facility] LABIA [id number] [place] [address] [place] Color (U) Yellow Normal Yellow [facility] Comment on above: Order Comment: Speci men Type: URINE SPECIMENOrdering Facility: [facility] Address: [address] [place] [address] Performed By: #### 2 4356-8 ####[facility] LABCLIA [id number] [place] [address] [place] Epithelial cells LM.HPF (Urine sed) [#/Area] None Seen Normal [facility] Comment on above: Order Comment: Speci men Type: URINE SPECIMENOrdering Facility: [facility] Address: [address] [place] [address] Performed By: #### 2 4356-8 ####[facility] LABCLIA [id number] [place] [address] [place] Glucose Test strip (U) [Mass/Vol] Trace Abnormal Negative [facility] Comment on above: Order Comment: Speci men Type: URINE SPECIMENOrdering Facility: [facility] Address: [address] [place] [address] Performed By: #### 2 4356-8 ####[facility] LABCLIA [id number] [place] [address] [place] Hemoglobin Ql (U) Negative Normal Negative [facility] Comment on above: Order Comment: Speci men Type: URINE SPECIMENOrdering Facility: [facility] Address: [address] [place] [address] Performed By: #### 2 4356-8 ####[facility] LABCLIA [id number] [place] [address] [place] Hyaline casts (Urine sed) [#/Area] 0 /[LPF] Normal 0 /LPF [facility] Comment on above: Order Comment: Speci men Type: URINE SPECIMENOrdering Facility: [facility] Address: [address] [place] [address] Performed By: #### 2 4356-8 ####[facility] LABCLIA [id number] [place] [address] [place] Ketones Ql (U) 1+ Abnormal Negative [facility] Comment on above: Order Comment: Speci men Type: URINE SPECIMENOrdering Facility: [facility] Address: [address] [place] [address] Performed By: #### 2 4356-8 ####[facility] LABCLIA [id number] [place] [address] [place] Leukocyte esterase Test strip Ql (U) Negative Normal Negative [facility] Comment on above: Order Comment: Speci men Type: URINE SPECIMENOrdering Facility: [facility] Address: [address] [place] [address] Performed By: #### 2 4356-8 ####[facility] LABCLIA [id number] [place] [address] [place] Nitrite Ql (U) Negative Normal Negative [facility] Comment on above: Order Comment: Speci men Type: URINE SPECIMENOrdering Facility: [facility] Address: [address] [place] [address] Performed By: #### 2 4356-8 ####[facility] LABCLIA [id number] [place] [address] [place] pH (U) 5.5 [pH] Normal <8.5 [facility] Comment on above: Order Comment: Speci men Type: URINE SPECIMENOrdering Facility: [facility] Address: [address] [place] [address] Performed By: #### 2 4356-8 ####[facility] LABCLIA [id number] [place] [address] [place] Protein (U) [Mass/Vol] Trace Abnormal Negative [facility] Comment on above: Order Comment: Speci men Type: URINE SPECIMENOrdering Facility: [facility] Address: [address] [place] [address] Performed By: #### 2 4356-8 ####[facility] LABIA [id number] [place] [address] [place] RBC LM.HPF (Urine sed) [#/Area] 0-2 /HPF Normal 0-2 /HPF [facility] Comment on above: Order Comment: Speci men Type: URINE SPECIMENOrdering Facility: [facility] Address: [address] [place] [address] Performed By: #### 2 4356-8 ####[facility] LABIA [id number] [place] [address] [place] Specific gravity (U) [Rel density] 1.028 Normal 1.005-1.030 [facility] Comment on above: Order Comment: Speci men Type: URINE SPECIMENOrdering Facility: [facility] Address: [address] [place] [address] Performed By: #### 2 4356-8 ####[facility] LABIA [id number] [place] [address] [place] Urobilinogen Ql (U) 1.0 EU/dL Normal 0.2-1.0 EU/dL [facility] Comment on above: Order Comment: Speci men Type: URINE SPECIMENOrdering Facility: [facility] Address: [address] [place] [address] Performed By: #### 2 4356-8 ####[facility] LABCLIA [id number] [place] [address] [place] WBC LM.HPF (Urine sed) [#/Area] 0-5 /HPF Normal 0-5 /HPF [facility] Comment on above: Order Comment: Speci men Type: URINE SPECIMENOrdering Facility: [facility] Address: [address] [place] [address] Performed By: #### 2 4356-8 ####[facility] LABCLIA [id number] [place] [id number] [place] Vit B12 SerPl-ncon 025 Cobalamin (Vitamin B12) [Mass/Vol] 380 pg/mL Normal 232-1245 [facility] Comment on above: Order Comment: Speci men Type: BLOOD SPECIMENOrdering Facility: [facility] Address: [address] [place] [address] Performed By: #### 2 132-9, 45320-6 ####[facility] LABCLIA [id number] [place] [id number] [place] CNPAna 06-22-2024 [facility]N Telephone [facility] SANTOS MOREL ([id number]) 1940 M Date Time Provider Department 06/22/24 YVAN RAHMAN During your visit today, we recorded the following information about you: Iman Winn LPN 06/22/2024 8:05 AM Signed calling to see if you want pt to get any blood work done. Pt has a Medicare Wellness apt on Saturday06-24-24. Please advise . SALOME Davis Jeffrey A, MD 06/22/2024 8:36 AM Signed Let know blood and urine lab orders placed. Iman Winn LPN 06/22/2024 12:20 PM Signed Left a detailed message for with message below. 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] Bilateral carotid artery stenosis [I65.23] Hypomagnesemia [E83.42] Medication management [Z79.899] Elevated prostate specific antigen (PSA) [R97.20] Order(s):ALBUMIN/CREATININ E RATIO, URINE [SQUACR] Order #: [id number] FUTURE COMPREHENSIVE METABOLIC PANEL [SQCMP] Order #: [id number] FUTURE HEMOGLOBIN A1C [GNELN1V] Order #: [id number] FUTURE THYROID STIMULATING HORMONE [SQTSH] Order #: [id number] FUTURE URINALYSIS, WITH MICROSCOPIC [SQUAWMIC] Order #: [id number] FUTURE LIPID PANEL, NONFASTING [SQLIPNF] Order #: [id number] FUTURE PROSTATE SPECIFIC ANTIGEN, FREE [SQPSATF] Order #: [id number] FUTURE COMPLETE BLOOD COUNT AND DIFFERENTIAL [SQCBCDIF] Order #: [id number] FUTURE THYROGLOBULIN, SERUM WITH REFLEX TO IA OR LC-MS/MS [SQTHYRORF] Order #: [id number] FUTURE VITAMIN B12 [SQB12] Order #: [id number] FUTURE MAGNESIUM [SQMG1] Order #: [id number] FUTURE Prescriptions as of 06/22/2024 - metFORMIN ER (GLUCOPHAGE XR) 500 mg 24 hr tablet TAKE 2 TABLETS BY MOUTH ONE TIME DAILY 12 HOURS APART FROM MAYUMET - metFORMIN ER (GLUCOPHAGE XR) 500 mg 24 hr tablet TAKE 2 TABLETS BY MOUTH ONE TIME DAILY 12 HOURS APART FROM - SITagliptin-metFORMIN (JANUMET XR) 100-1,000 mg TM24 Take 1 tablet by mouth once daily. - glimepiride (AMARYL) 2 mg tablet Take 1 tablet by mouth two times a day with meals. - tamsulosin (FLOMAX) 0.4 mg Take 1 capsule by mouth two times a day. - levothyroxine (SYNTHROID) 175 mcg tablet Take 1 tablet by mouth once daily. Mon-Sat and two on Saturday - losartan (COZAAR) 100 mg tablet Take 1 tablet by mouth once daily. - pravastatin (PRAVACHOL) 40 mg tablet Take 1 tablet by mouth daily at bedtime. - diphenoxylate-atropine (LOMOTIL) 2.5-0.025 mg per tablet Take 1 tablet by mouth two times a day as needed for diarrhea for up to 180 days. - omeprazole (PRILOSEC) 20 mg capsule TAKE 1 CAPSULE DAILY - DUPIXENT PEN 300 mg/2 mL pen Inject 300 mg subcutaneously every [address] Evans Sommer - Cholecalciferol, Vitamin D3, 50 mcg (2,000 unit) cap Take by mouth once daily. - ASPIRIN 81 MG TAB Take one(1) tablet daily. 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] 01/20/2021 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] 10/09/2013 History of kidney stones [Z87.442] 05/19/2014 Diabetic eye exam (HCC) [Z01.00, E11.9] 08/27/2014 Disorder of prostate [N42.9] 08/27/2014 Controlled type 2 diabetes mellitus without com*03/05/2015 Mixed hyperlipidemia [E78.2] 03/05/2015 Essential hypertension [I10] 03/05/2015 Gastroesophageal reflux disease without esophag*03/05/2015 Benign non-nodular prostatic hyperplasia with l*03/16/2015 Upper back pain on left side [M54.9] 03/16/2015 Elevated prostate specific antigen (PSA) [R97.2*03/16/2015 Malignant neoplasm of upper lobe of right lung *03/16/2015 01/20/2021 Medicare annual wellness visit, subsequent [Z00*06/14/[address] of liver [R93.2] 07/07/2018 Hypomagnesemia [E83.42] 06/30/2019 Medication management [Z79. (more content not included)... Normal [facility] CBC W Auto Differential pane l (Bld)on 12-18-2023 Basophils (Bld) [#/Vol] 0.03 10*3/uL [facility] Basophils/100 WBC (Bld) 0.4 % [facility] Differential cell count method Nom (Bld) Auto [facility] Eosinophils (Bld) [#/Vol] 0.15 10*3/uL [facility] Eosinophils/100 WBC (Bld) 2.0 % [facility] Erythrocyte distribution width (RBC) [Ratio] 12.8 % 11.5 - 15.0 % [facility] Hematocrit (Bld) [Volume fraction] 42.5 % 39.0 - 51.0 % [facility] Hemoglobin (Bld) [Mass/Vol] 14.1 g/dL 13.0 - 17.0 g/dL [facility] Immature granulocytes (Bld) [#/Vol] 0.05 10*3/uL [facility] Immature granulocytes/100 WBC (Bld) 0.7 % [facility] Lymphocytes (Bld) [#/Vol] 1.31 10*3/uL [facility] Lymphocytes/100 WBC (Bld) 17.2 % [facility] MCH (RBC) [Entitic mass] 28.3 pg 26.0 - 34.0 pg [facility] MCHC (RBC) [Mass/Vol] 33.2 g/dL 30.5 - 36.0 g/dL [facility] MCV (RBC) [Entitic vol] 85.3 fL 80.0 - 100.0 fL [facility] Monocytes (Bld) [#/Vol] 0.55 10*3/uL [facility] Monocytes/100 WBC (Bld) 7.2 % [facility] Neutrophils (Bld) [#/Vol] 5.51 10*3/uL [facility] Neutrophils/100 WBC (Bld) 72.5 % [facility] Nucleated RBC (Bld) [#/Vol] NINF [facility] Nucleated RBC/100 WBC (Bld) [Ratio] 0.0 % /100 WBC [facility] Platelet mean volume (Bld) [Entitic vol] 10.5 fL 9.0 - 12.7 fL [facility] Platelets (Bld) [#/Vol] 176 10*3/uL [facility] RBC (Bld) [#/Vol] 4.98 10*6/uL 4.20 - 6.0 0 m/uL [facility] WBC (Bld) [#/Vol] 7.60 10*3/uL [facility] COVID & INFLUENZA A/B & RSV NAAT, ROUTINEon 04-09-2023 FLUAV RNA CRISTINA+probe Ql (Unsp spec) Not detected Not Detected [facility] FLUBV RNA CRISTINA+probe Ql (Unsp spec) Not detected Not Detected [facility] RSV A RNA CRISTINA+probe Ql (Unsp spec) Not detected Not Detected [facility] SARS-CoV-2 (COVID-19) RNA CRISTINA+probe Ql (Resp) Not detected See comment [facility] Comprehensive metabolic 2000 panelon 04-09-2023 Albumin [Mass/Vol] 3.8 g/dL Low 3.9 - 4.9 g/dL [facility] ALP [Catalytic activity/Vol] 59 U/L 38 - 113 U/L [facility] ALT [Catalytic activity/Vol] 23 U/L 10 - 54 U/L [facility] Anion gap [Moles/Vol] 16 mmol/L 9 - 18 mmol/L [facility] AST [Catalytic activity/Vol] 16 U/L 14 - 40 U/L [facility] Bilirubin [Mass/Vol] 1.0 mg/dL 0.2 - 1 .3 mg/dL [facility] Calcium [Mass/Vol] 9.1 mg/dL 8.5 - 10. 2 mg/dL [facility] Chloride [Moles/Vol] 96 mmol/L Low 97 - 10 5 mmol/L [facility] CO2 [Moles/Vol] 21 mmol/L Low 22 - 30 mmol/L [facility] Creatinine [Mass/Vol] 1.21 mg/dL 0.73 - 1.22 mg/dL [facility] Estimated Glomerular Filtration Rate 61 mL/min/1.73m >=60 mL/min/1.73 m [facility] Glucose [Mass/Vol] 326 mg/dL High 74 - 99 mg/dL [facility] Potassium [Moles/Vol] 4.7 mmol/L 3.7 - 5.1 mmol/L [facility] Protein [Mass/Vol] 6.8 g/dL 6.3 - 8.0 g/dL [facility] Sodium [Moles/Vol] 133 mmol/L Low 136 - 144 mmol/L [facility] Urea nitrogen [Mass/Vol] 29 mg/dL High 9 - 24 mg/dL [facility] URINE CULTUREon 04-09-2023 Bacteria identified Cx Nom (U) <10,000 CFU/ml Normal urogenital fer [facility] CBC W Auto Differential pane l (Bld)on 04-08-2023 Basophils (Bld) [#/Vol] 0.03 10*3/uL <0.11 k/uL [facility] Basophils/100 WBC (Bld) 0.3 % [facility] Differential cell count method Nom (Bld) Auto [facility] Eosinophils (Bld) [#/Vol] <0.46 k/uL [facility] Eosinophils/100 WBC (Bld) 0.1 % [facility] Erythrocyte distribution width (RBC) [Ratio] 13.2 % 11.5 - 15.0 % [facility] Hematocrit (Bld) [Volume fraction] 45.9 % 39.0 - 51.0 % [facility] Hemoglobin (Bld) [Mass/Vol] 14.8 g/dL 13.0 - 17.0 g/dL [facility] Immature granulocytes (Bld) [#/Vol] <0.10 k/uL [facility] Immature granulocytes/100 WBC (Bld) 0.2 % [facility] Lymphocytes (Bld) [#/Vol] 0.89 10*3/uL Low 1.00 - 4.00 k/uL [facility] Lymphocytes/100 WBC (Bld) 8.6 % [facility] MCH (RBC) [Entitic mass] 28.4 pg 26.0 - 34.0 pg [facility] MCHC (RBC) [Mass/Vol] 32.2 g/dL 30.5 - 36.0 g/dL [facility] MCV (RBC) [Entitic vol] 87.9 fL 80.0 - 100.0 fL [facility] Monocytes (Bld) [#/Vol] 1.17 10*3/uL High <0.87 k/uL [facility] Monocytes/100 WBC (Bld) 11.3 % [facility] Neutrophils (Bld) [#/Vol] 8.26 10*3/uL High 1.45 - 7.50 k/uL [facility] Neutrophils/100 WBC (Bld) 79.5 % [facility] Nucleated RBC (Bld) [#/Vol] <0.01 k/uL [facility] Nucleated RBC/100 WBC (Bld) [Ratio] 0.0 /100 WBC [facility] Platelet mean volume (Bld) [Entitic vol] 10.6 fL 9.0 - 12.7 fL [facility] Platelets (Bld) [#/Vol] 221 10*3/uL 150 - 400 k/uL [facility] RBC (Bld) [#/Vol] 5.22 10*6/uL 4.20 - 6.0 0 m/uL [facility] WBC (Bld) [#/Vol] 10.38 10*3/uL 3.70 - 11.00 k/uL [facility] INFLUENZA A&B MOLECULAR (POC )on 04-08-2023 Flu A (POCT) Negative Negative [facility] Flu B (POCT) Negative Negative [facility] Procedural Control Valid [facility] UA DIP, URINE (POC)on 2022 BILIRUBIN UA (POCT) Small Abnormal Negative [facility] CLARITY UA (POCT) Clear [facility] COLOR UA (POCT) Dark yellow [facility] GLUCOSE UA (POCT) 500 mg/dL Abnormal Negative mg/dL [facility] Hemoglobin Ql (U) Negative Negative [facility] KETONE UA (POCT) 15 mg/dL Abnormal Negative mg/dL [facility] LEUKOCYTES UA (POCT) Negative Negative [facility] NITRITE UA (POCT) Negative Negative [facility] PH UA (POCT) 5.0 4.5 - 8.0 [facility] Protein Ql (U) 30 mg/dL Abnormal Negative mg/dL [facility] SPECIFIC GRAVITY UA (POCT) >=1.030 1.005 - 1.030 [facility] UROBILINOGEN UA (POCT) 0.2 E.U./dL Sherly l E.U./dL [facility] XR CHEST 2V FRONTAL/LATon [facility] XR Chest PA and Lateralon IMPRESSION: No acute radiographic abnormality with stable postsurgical changes in the right lung. Child Care Team Lead: CEZAR Transcribe Date/Time: Apr 08 2023 11:40A Dictated by : ANGELA MIRELES MD This examination was interpreted and the report reviewed and electronically signed by: ANGELA MIRELES MD on Apr 08 2023 11:47AM [facility] DIVISION OF RADIOLOGY * * *Final Report* * * DATE OF EXAM: Apr 08 2023 11:10AM WOX 5291 - XR CHEST 2V FRONTAL/LAT / PROCEDURE REASON: Fever, unspecified fever cause * * * * Physician Interpretation * * * * EXAMINATION: CHEST RADIOGRAPH (2 VIEW FRONTAL & LATERAL) CLINICAL HISTORY: Fever MQ: XC2_6 EXAM DATE/TIME: 04/08/2023 11:10 AM COMPARISON: Chest x-ray dated July 06, 2021 RESULT: Lines, tubes, and devices: None. Lungs and pleura: Stable postsurgical changes in the right hemithorax with volume loss. No discernible pleural effusion or pneumothorax. Cardiomediastinal silhouette: Stable cardiomediastinal silhouette. Bones and soft tissues: Degenerative changes are present within the thoracic spine. DIVISION OF RADIOLOGY Provider, [facility] - 04/08/2023 * * *Final Report* * * DATE OF EXAM: Apr 08 2023 11:10AM WOX 5291 - XR CHEST 2V FRONTAL/LAT / PROCEDURE REASON: Fever, unspecified fever cause * * * * Physician Interpretation * * * * EXAMINATION: CHEST RADIOGRAPH (2 VIEW FRONTAL & LATERAL) CLINICAL HISTORY: Fever MQ: XC2_6 EXAM DATE/TIME: 04/08/2023 11:10 AM COMPARISON: Chest x-ray dated July 06, 2021 RESULT: Lines, tubes, and devices: None. Lungs and pleura: Stable postsurgical changes in the right hemithorax with volume loss. No discernible pleural effusion or pneumothorax. Cardiomediastinal silhouette: Stable cardiomediastinal silhouette. Bones and soft tissues: Degenerative changes are present within the thoracic spine. IMPRESSION IMPRESSION: No acute radiographic abnormality with stable postsurgical changes in the right lung. Child Care Team Lead: CEZAR Transcribe Date/Time: Apr 08 2023 11:40A Dictated by : ANGELA MIRELES MD This examination was interpreted and the report reviewed and electronically signed by: ANGELA MIRELES MD on Apr 08 2023 11:47AM EST [facility] Radiology Study observation (narrative) [facility] XR Chest PA and LateralOrder ed By: [facility] Provider on 04-08-2023 [facility] XR Shoulder - left 3 Viewson 02-28-2023 IMPRESSION: Mild degenerative change. Child Care Team Lead: CEZAR Transcribe Date/Time: Feb 28 2023 8:53A Dictated by : DARIUS FOLEY DO This examination was interpreted and the report reviewed and electronically signed by: DARIUS FOLEY DO on Feb 28 2023 8:55AM EST DIVISION OF RADIOLOGY * * *Final Report* * * DATE OF EXAM: Feb 25 2023 2:22PM WOX 5252 - XR SHLDR >/=3V AP/BRENDON AP/OTHR LT / PROCEDURE REASON: multiple diagnoses * * * * Physician Interpretation * * * * EXAMINATION: XR SHLDR >/=3V AP/BRENDON AP/OTHR LT PATIENT/TECHNOLOGIST PROVIDED HISTORY: Chronic anterior left shoulder pain that has increased over time CLINICAL INFORMATION: 82 years old Male with Chronic left shoulder pain TECHNIQUE: XR SHLDR >/=3V AP/BRENDON AP/OTHR LT Laterality: LEFT Number of different views (projections): 3 COMPARISON: None. RESULT: Mild glenohumeral joint space narrowing with tiny marginal osteophytes. Mild degenerative change acromioclavicular joint. Acromiohumeral interval is maintained. No fracture. Degenerative changes in the cervical spine. DIVISION OF RADIOLOGY Provider, [facility] - 02/28/2023 * * *Final Report* * * DATE OF EXAM: Feb 25 2023 2:22PM WOX 5252 - XR SHLDR >/=3V AP/BRENDON AP/OTHR LT / PROCEDURE REASON: multiple diagnoses * * * * Physician Interpretation * * * * EXAMINATION: XR SHLDR >/=3V AP/BRENDON AP/OTHR LT PATIENT/TECHNOLOGIST PROVIDED HISTORY: Chronic anterior left shoulder pain that has increased over time CLINICAL INFORMATION: 82 years old Male with Chronic left shoulder pain TECHNIQUE: XR SHLDR >/=3V AP/BRENDON AP/OTHR LT Laterality: LEFT Number of different views (projections): 3 COMPARISON: None. RESULT: Mild glenohumeral joint space narrowing with tiny marginal osteophytes. Mild degenerative change acromioclavicular joint. Acromiohumeral interval is maintained. No fracture. Degenerative changes in the cervical spine. IMPRESSION IMPRESSION: Mild degenerative change. Child Care Team Lead: CEZAR Transcribe Date/Time: Feb 28 2023 8:53A Dictated by : DARIUS FOLEY DO This examination was interpreted and the report reviewed and electronically signed by: DARIUS FOLEY DO on Feb 28 2023 8:55AM EST [facility] XR Shoulder - left 3 ViewsOr dered By: [facility] Provider on 02-28-2023 [facility] XR Shoulder - left 3 Viewson 02-25-2023 Radiology Study observation (narrative) [facility] XR Chest PA and Lateralon IMPRESSION: No acute radiographic abnormality. Postsurgical changes right lung Child Care Team Lead: CEZAR Transcribe Date/Time: Jul 06 2021 5:22P Dictated by : DANG ORELLANA MD This examination was interpreted and the report reviewed and electronically signed by: DANG ORELLANA MD on Jul 06 2021 5:23PM [facility] DIVISION OF RADIOLOGY * * *Final Report* * * DATE OF EXAM: Jul 06 2021 4:00PM WOX 5291 - XR CHEST 2V FRONTAL/LAT / PROCEDURE REASON: L29.8 * * * * Physician Interpretation * * * * EXAMINATION: CHEST RADIOGRAPH (2 VIEW FRONTAL & LATERAL) CLINICAL HISTORY: MQ: XC2_6 EXAM DATE/TIME: 07/06/2021 4:00 PM COMPARISON: 01/12/2020 RESULT: Lines, tubes, and devices: None. Lungs and pleura: Postsurgical changes right chest with volume loss. No discrete alveolar consolidation or pleural effusion Cardiomediastinal silhouette: Normal cardiomediastinal silhouette. Bones and soft tissues: Degenerative spine changes DIVISION OF RADIOLOGY Provider, [facility] [place] - 07/06/2021 * * *Final Report* * * DATE OF EXAM: Jul 06 2021 4:00PM WOX 5291 - XR CHEST 2V FRONTAL/LAT / PROCEDURE REASON: L29.8 * * * * Physician Interpretation * * * * EXAMINATION: CHEST RADIOGRAPH (2 VIEW FRONTAL & LATERAL) CLINICAL HISTORY: MQ: XC2_6 EXAM DATE/TIME: 07/06/2021 4:00 PM COMPARISON: 01/12/2020 RESULT: Lines, tubes, and devices: None. Lungs and pleura: Postsurgical changes right chest with volume loss. No discrete alveolar consolidation or pleural effusion Cardiomediastinal silhouette: Normal cardiomediastinal silhouette. Bones and soft tissues: Degenerative spine changes IMPRESSION IMPRESSION: No acute radiographic abnormality. Postsurgical changes right lung Child Care Team Lead: CEZAR Transcribe Date/Time: Jul 06 2021 5:22P Dictated by : DANG ORELLANA MD This examination was interpreted and the report reviewed and electronically signed by: DANG ORELLANA MD on Jul 06 2021 5:23PM EST [facility] Radiology Study observation (narrative) [facility] XR Chest PA and LateralOrder ed By: [facility] Provider on 07-06-2021 [facility] Vital Signs Date Time Vital Sign Value Performing Clinician Facility 01-20-2025 11:02-0400 Body mass index (BMI) [Ratio] 27.69 kg/m2 Yvan Rahman MD Work Phone: [facility] 01-20-2025 11:02-0400 Body weight 87.54 kg Yvan Rahman MD Work Phone: [facility] 01-20-2025 11:02-0400 Diastolic blood pressure 66 mm[Hg] Yvan Rahman MD Work Phone: [facility] 01-20-2025 11:02-0400 Heart rate 66 /min Yvan Rahman MD Work Phone: [facility] 01-20-2025 11:02-0400 Respiratory rate 18 /min Yvan Rahman MD Work Phone: [facility] 01-20-2025 11:02-0400 Systolic blood pressure 124 mm[Hg] Yvan Rahman MD Work Phone: [facility] 12-23-2024 10:18-0400 Body height 180.[address] Yvan Ramhan MD Work Phone: [facility] 12-23-2024 10:18-0400 Body mass index (BMI) [Ratio] 26.2 kg/m2 Dr. Yvan Rahmna MD Work Phone: [facility] 12-23-2024 10:18-0400 Body weight 85.[address] Yvan Rahman MD Work Phone: [facility] 12-23-2024 10:18-0400 Diastolic blood pressure 72 mm[Hg] Dr. Yvan Rahman MD Work Phone: [facility] 12-23-2024 10:18-0400 Heart rate 90 /min Dr. Yvan Rahman MD Work Phone: [facility] 12-23-2024 10:18-0400 Respiratory rate 16 /min Dr. Yvan Rahman MD Work Phone: [facility] 12-23-2024 10:18-0400 Systolic blood pressure 126 mm[Hg] Dr. Yvan Rahman MD Work Phone: [facility] 11-25-2024 12:57-0400 Body mass index (BMI) [Ratio] 26.83 kg/m2 Livia Paredes MD Work Phone: [facility] 11-25-2024 12:57-0400 Body weight 84.82 kg Livia Paredes MD Work Phone: [facility] 11-25-2024 12:57-0400 Diastolic blood pressure 60 mm[Hg] Livia Paredes MD Work Phone: [facility] 11-25-2024 12:57-0400 Heart rate 60 /min Livia Paredes MD Work Phone: [facility] 11-25-2024 12:57-0400 Respiratory rate 15 /min Livia Paredes MD Work Phone: [facility] 11-25-2024 12:57-0400 SaO2% (BldA) [Mass fraction] 95 % Livia Paredes MD Work Phone: [facility] 11-25-2024 12:57-0400 Systolic blood pressure 112 mm[Hg] Livia Paredes MD Work Phone: [facility] 10-19-2024 09:37-0400 Body height 177.8 cm Pulm Wstr Work Phone: [facility] 10-19-2024 09:37-0400 Body mass index (BMI) [Ratio] 26.98 kg/m2 Pulm Wstr Work Phone: [facility] 10-19-2024 09:37-0400 Body weight 85.28 kg Pulm Wstr Work Phone: [facility] 10-19-2024 09:37-0400 Heart rate 88 /min Pulm Wstr Work Phone: [facility] 10-19-2024 09:37-0400 Respiratory rate 15 /min Pulm Wstr Work Phone: [facility] 10-19-2024 09:37-0400 SaO2% (BldA) [Mass fraction] 97 % Pulm Wstr Work Phone: [facility] 10-06-2024 10:59-0400 Body mass index (BMI) [Ratio] 26.5 kg/m2 Yvan Rahman MD Work Phone: [facility] 10-06-2024 10:59-0400 Body weight 84.37 kg Yvan Rahman MD Work Phone: [facility] 10-06-2024 10:59-0400 Diastolic blood pressure 70 mm[Hg] Yvan Rahman MD Work Phone: [facility] 10-06-2024 10:59-0400 Heart rate 91 /min Yvan Rahman MD Work Phone: [facility] 10-06-2024 10:59-0400 Respiratory rate 18 /min Yvan Rahman MD Work Phone: [facility] 10-06-2024 10:59-0400 SaO2% (BldA) [Mass fraction] 96 % Yvan Rahman MD Work Phone: [facility] 10-06-2024 10:59-0400 Systolic blood pressure 118 mm[Hg] Yvan Rahman MD Work Phone: [facility] 09-25-2024 11:00-0400 Diastolic blood pressure 71 mm[Hg] Morro Blanchardrell PT Work Phone: [facility] Comment on above: Start of Visit 09-25-2024 11:00-0400 Heart rate 98 /min Morro Durham PT Work Phone: [facility] Comment on above: Start of Visit. 09-25-2024 11:00-0400 SaO2% (BldA) [Mass fraction] 95 % Morrobruce BlanchardRoya PT Work Phone: [facility] Comment on above: Start of Visit. 09-25-2024 11:00-0400 Systolic blood pressure 112 mm[Hg] Morrobruce BlanchardRoya PT Work Phone: [facility] Comment on above: Start of Visit 09-17-2024 12:00-0400 Diastolic blood pressure 76 mm[Hg] Morro Blanchardrell PT Work Phone: [facility] 09-17-2024 12:00-0400 Heart rate 103 /min Morrobruce BlanchardRoya PT Work Phone: [facility] 09-17-2024 12:00-0400 SaO2% (BldA) [Mass fraction] 94 % Morro Blanchardrell PT Work Phone: [facility] 09-17-2024 12:00-0400 Systolic blood pressure 106 mm[Hg] Morro Blanchardrell PT Work Phone: [facility] 09-02-2024 11:20-0400 Body mass index (BMI) [Ratio] 26.5 kg/m2 Yvan Rahman MD Work Phone: [facility] 09-02-2024 11:20-0400 Body temperature 98.8 [degF] Yvan Rahman MD Work Phone: [facility] 09-02-2024 11:20-0400 Body weight 84.37 kg vYan Rahman MD Work Phone: [facility] 09-02-2024 11:20-0400 Diastolic blood pressure 62 mm[Hg] Yvan Rahman MD Work Phone: [facility] 09-02-2024 11:20-0400 Heart rate 111 /min Yavn Rahman MD Work Phone: [facility] 09-02-2024 11:20-0400 Respiratory rate 18 /min Yvan Rahman MD Work Phone: [facility] 09-02-2024 11:20-0400 SaO2% (BldA) [Mass fraction] 94 % Yvan Rahman MD Work Phone: [facility] 09-02-2024 11:20-0400 Systolic blood pressure 102 mm[Hg] Yvan Rahman MD Work Phone: [facility] 08-28-2024 09:47-0400 Body mass index (BMI) [Ratio] 26.7 kg/m2 Bernice Maier APRN.GRAVITY PROSPECTING OPERATOR HELPER Work Phone: [facility] 08-28-2024 09:47-0400 Body weight 85 kg Bernice Maier APRN.GRAVITY PROSPECTING OPERATOR HELPER Work Phone: [facility] 08-28-2024 09:47-0400 Diastolic blood pressure 74 mm[Hg] Bernice Maier APRN.GRAVITY PROSPECTING OPERATOR HELPER Work Phone: [facility] 08-28-2024 09:47-0400 Heart rate 103 /min Bernice Maier APRN.GRAVITY PROSPECTING OPERATOR HELPER Work Phone: [facility] 08-28-2024 09:47-0400 Systolic blood pressure 123 mm[Hg] Bernice Maier APRN.GRAVITY PROSPECTING OPERATOR HELPER Work Phone: 6(265)388-430729 [place] [address] 08-23-2024 09:10-0400 Body temperature 98.4 [degF] Dr. Yvan Rahman MD Work Phone: 2(852)402-682041 [place] [address] 08-23-2024 09:10-0400 Diastolic blood pressure 68 mm[Hg] Dr. Yvan Rahman MD Work Phone: 2(100)463-341441 [place] [address] 08-23-2024 09:10-0400 Heart rate 94 /min Dr. Yvan Rahman MD Work Phone: 3(530)344-999441 [place] [address] 08-23-2024 09:10-0400 Respiratory rate 18 /min Dr. Yvan Rahman MD Work Phone: 0(631)694-558741 [place] [address] 08-23-2024 09:10-0400 SaO2% (BldA) [Mass fraction] 92 % Dr. Yvan Rahman MD Work Phone: 8(175)371-981041 [place] [address] 08-23-2024 09:10-0400 Systolic blood pressure 145 mm[Hg] Dr. Yvan Rahman MD Work Phone: 1(619)872-634841 [place] [address] 08-23-2024 04:47-0400 Body mass index (BMI) [Ratio] 26.2 kg/m2 Dr. Yvan Rahman MD Work Phone: 7(464)310-628641 [place] [address] 08-23-2024 04:47-0400 Body weight 85.[address] Yvan Rahman MD Work Phone: 7(848)535-777041 [place] [address] 08-21-2024 09:28-0400 Body height 180.[address] Yvan Rahman MD Work Phone: 9(432)478-875141 [place] [address] 08-20-2024 07:15-0400 Inhaled oxygen flow rate 2 L/min Dr. Yvan Rahman MD Work Phone: 8(650)651-362441 [place] [address] 08-19-2024 12:40-0400 Body temperature 101.4 [degF] Dr. Yvan Rahman MD Work Phone: 5(703)712-006841 [place] [address] 08-19-2024 12:40-0400 Diastolic blood pressure 79 mm[Hg] Dr. Yvan Rahman MD Work Phone: 4(077)094-729441 [place] [address] 08-19-2024 12:40-0400 Heart rate 116 /min Dr. Yvan Rahman MD Work Phone: 8(455)205-298341 [place] [address] 08-19-2024 12:40-0400 Inhaled oxygen flow rate 2 L/min Dr. Yvan Rahman MD Work Phone: 4(106)308-729541 [place] [address] 08-19-2024 12:40-0400 Respiratory rate 14 /min Dr. Yvan Rahman MD Work Phone: 6(996)108-071641 [place] [address] 08-19-2024 12:40-0400 SaO2% (BldA) [Mass fraction] 92 % Dr. Yvan Rahman MD Work Phone: 1(432)055-970741 [place] [address] 08-19-2024 12:40-0400 Systolic blood pressure 161 mm[Hg] Dr. Yvan Rahman MD Work Phone: 7(711)745-191241 [place] [address] 08-19-2024 08:58-0400 Body height 177.[address] Yvan Rahman MD Work Phone: 4(736)220-808941 [place] [address] 08-19-2024 08:58-0400 Body mass index (BMI) [Ratio] 28.8 kg/m2 Dr. Yvan Rahman MD Work Phone: 3(388)528-346941 [place] [address] 08-19-2024 08:58-0400 Body weight 91.[address] Yvan Rahman MD Work Phone: 6(146)013-657341 [place] [address] 08-05-2024 12:20-0400 Body mass index (BMI) [Ratio] 27.7 kg/m2 Aletha MATTSON-C Work Phone: 0(107)873-684129 [place] [address] 08-05-2024 12:20-0400 Body weight 88.18 kg Aletha MATTSON-Vasiliy Work Phone: 1(912)985-225129 [place] [address] 08-05-2024 12:20-0400 Diastolic blood pressure 72 mm[Hg] Aletha MATTSON-Vasiliy Work Phone: 6(685)858-638929 [place] [address] 08-05-2024 12:20-0400 Heart rate 77 /min Aletha Reynolds PA-C Work Phone: [facility] 08-05-2024 12:20-0400 SaO2% (BldA) [Mass fraction] 96 % Aletha Reynolds PA-C Work Phone: [facility] 08-05-2024 12:20-0400 Systolic blood pressure 131 mm[Hg] Aletha Reynolds PA-C Work Phone: [facility] 07-16-2024 11:03-0500 Body height 178.4 cm Yvan Rahman MD Work Phone: [facility] 07-16-2024 11:03-0500 Body mass index (BMI) [Ratio] 27.78 kg/m2 Yvan Rahman MD Work Phone: [facility] 07-16-2024 11:03-0500 Body weight 88.45 kg Yvan Rahman MD Work Phone: [facility] 07-16-2024 11:03-0500 Diastolic blood pressure 64 mm[Hg] Yvan Rahman MD Work Phone: [facility] 07-16-2024 11:03-0500 Heart rate 108 /min Yvan Rahman MD Work Phone: [facility] 07-16-2024 11:03-0500 SaO2% (BldA) [Mass fraction] 97 % Yvan Rahman MD Work Phone: [facility] 07-16-2024 11:03-0500 Systolic blood pressure 130 mm[Hg] Yvan Rahman MD Work Phone: [facility] 12-18-2023 12:37-0400 Body mass index (BMI) [Ratio] 28.22 kg/m2 Zahra MATTSON-C Work Phone: [facility] 12-18-2023 12:37-0400 Body temperature 98.71 [degF] Zahra MATTSON-C Work Phone: [facility] 12-18-2023 12:37-0400 Body weight 89.2 kg Zahra Arias PA-C Work Phone: [facility] 12-18-2023 12:37-0400 Diastolic blood pressure 72 mm[Hg] Zahra Arias PA-C Work Phone: [facility] 12-18-2023 12:37-0400 Heart rate 87 /min Zahra Arias PA-C Work Phone: [facility] 12-18-2023 12:37-0400 Respiratory rate 16 /min Zahra Arias PA-C Work Phone: [facility] 12-18-2023 12:37-0400 SaO2% (BldA) [Mass fraction] 94 % Zahra Arias PA-C Work Phone: [facility] 12-18-2023 12:37-0400 Systolic blood pressure 132 mm[Hg] Zahra Arias PA-C Work Phone: [facility] 04-10-2023 18:18-0500 Body temperature 98.91 [degF] Yvan Rahman MD Work Phone: [facility] 04-10-2023 18:18-0500 Body weight 85.73 kg Yvan Rahman MD Work Phone: [facility] 04-10-2023 18:18-0500 Diastolic blood pressure 64 mm[Hg] Yvan Rahman MD Work Phone: [facility] 04-10-2023 18:18-0500 Heart rate 80 /min Yvan Rahman MD Work Phone: [facility] 04-10-2023 18:18-0500 Respiratory rate 22 /min Yvan Rahman MD Work Phone: [facility] 04-10-2023 18:18-0500 SaO2% (BldA) [Mass fraction] 95 % Yvan Rahman MD Work Phone: [facility] 04-10-2023 18:18-0500 Systolic blood pressure 122 mm[Hg] Yvan Rahman MD Work Phone: [facility] 04-08-2023 10:11-0500 Body temperature 99.3 [degF] Iona Praisler-Wood STAFFING ASSISTANT.GRAVITY PROSPECTING OPERATOR HELPER Work Phone: [facility] 04-08-2023 10:11-0500 Body weight 86.64 kg Iona Praisler-Wood STAFFING ASSISTANT.GRAVITY PROSPECTING OPERATOR HELPER Work Phone: [facility] 04-08-2023 10:11-0500 Diastolic blood pressure 72 mm[Hg] Iona Praisler-Wood STAFFING ASSISTANT.GRAVITY PROSPECTING OPERATOR HELPER Work Phone: [facility] 04-08-2023 10:11-0500 Heart rate 123 /min Iona Praisler-Wood STAFFING ASSISTANT.GRAVITY PROSPECTING OPERATOR HELPER Work Phone: [facility] 04-08-2023 10:11-0500 Respiratory rate 24 /min Iona Praisler-Wood STAFFING ASSISTANT.GRAVITY PROSPECTING OPERATOR HELPER Work Phone: [facility] 04-08-2023 10:11-0500 SaO2% (BldA) [Mass fraction] 96 % Iona Praisler-Wood STAFFING ASSISTANT.GRAVITY PROSPECTING OPERATOR HELPER Work Phone: [facility] 04-08-2023 10:11-0500 Systolic blood pressure 117 mm[Hg] Iona Praisler-Wood STAFFING ASSISTANT.GRAVITY PROSPECTING OPERATOR HELPER Work Phone: [facility] 02-25-2023 13:15-0400 Body weight 89.36 kg Yvan Rahman MD Work Phone: [facility] 02-25-2023 13:15-0400 Diastolic blood pressure 72 mm[Hg] Yvan Ramhan MD Work Phone: [facility] 02-25-2023 13:15-0400 Heart rate 68 /min Yvan Rahman MD Work Phone: [facility] 02-25-2023 13:15-0400 Respiratory rate 16 /min Yvan Rahman MD Work Phone: [facility] 02-25-2023 13:15-0400 Systolic blood pressure 138 mm[Hg] Yvan Rahman MD Work Phone: [facility] 08-23-2022 12:58-0400 Body height 177.8 cm Yvan Rahman MD Work Phone: [facility] 08-23-2022 12:58-0400 Body weight 87.09 kg Yvan Rahman MD Work Phone: [facility] 08-23-2022 12:58-0400 Diastolic blood pressure 78 mm[Hg] Yvan Rahman MD Work Phone: [facility] 08-23-2022 12:58-0400 Heart rate 70 /min Yvan Rahman MD Work Phone: [facility] 08-23-2022 12:58-0400 Respiratory rate 16 /min Yvan Rahman MD Work Phone: [facility] 08-23-2022 12:58-0400 Systolic blood pressure 132 mm[Hg] Yvan Rahman MD Work Phone: [facility] Encounters Encounter Date Encounter Type Care Provider Facility Start: 01-27-2025 ambulatory Yvan Rahman Facility :[facility] Start: 01-20-2025 End: 01-20-2025 Ophthalmic examination and evaluation Yvan Rahman MD Work Phone: [facility] Start: 01-20-2025 End: 01-20-2025 Patient encounter procedure Yvan Rahman MD Work Phone: [facility] [place] Comment on above: Controlled type 2 di abetes mellitus without complication, without long-term current use of insulin (HCC) (Primary Dx); Diabetic eye exam (HCC); Essential hypertension; Mixed hyperlipidemia; Post-surgical hypothyroidism; Gastroesophageal reflux disease without esophagitis; Bilateral carotid artery stenosis; Primary thyroid papillary carcinoma (HCC); SVT (supraventricular tachycardia) ([facility]); V-tach (HCC); Hypomagnesemia; Obstructive lung disease ([facility]ER[facility]); Medication management Start: 01-20-2025 End: 01-20-2025 ambulatory YVAN RAHMAN Facility:[facility] Start: 01-02-2025 End: 01-02-2025 ambulatory YVAN [facility] Facility:[facility] Start: 12-31-2024 End: 12-31-2024 Segundo Maier APRN.CNP Work Phone: [facility] [place] Comment on above: Refill Request Start: 12-24-2024 End: 12-24-2024 ambulatory Iona Garcia MA [facility] Start: 12-24-2024 End: 12-24-2024 Patient encounter procedure Iona Garcia MA [facility] Comment on above: Population Health Na vigation Outreach ( O WORK[facility]ENNI [facility] ) Start: 12-23-2024 End: 12-23-2024 Chart abstracting Yvan Rahman MD Work Phone: [facility] [place] Comment on above: Abstract (Cardiology OV note - [facility]) Start: 12-23-2024 End: 12-23-[address] Fran De Leon MD -[facility] [place] [facility] Work Phone: Start: 12-23-2024 End: 12-23-[address] Yvan Rahman MD Work Phone: -[facility] [place] Start: 12-04-2024 End: 12-07-2024 Refill Zahra Arias PA-C Work Phone: [facility] [place] Comment on above: Refill Request Start: 11-25-2024 End: 11-25-2024 Patient encounter procedure Livia Paredes MD Work Phone: Pulmonary Medicine Comment on above: Obstructive lung dis ease (HCC) (Primary Dx); History of lung cancer Start: 11-25-2024 End: 11-25-2024 ambulatory LIVIA PAREDES Facility:[facility] Start: 11-17-2024 End: 11-18-2024 ambulatory Yvan Rahman MD Work Phone: [facility] [place] Comment on above: Heart Monitor Result s Start: 11-11-2024 End: 11-11-2024 Telephone encounter Yvan Rahman MD Work Phone: [facility] [place] Comment on above: Results (Holter) Start: 11-03-2024 End: 11-04-2024 ambulatory Yvan Rahman MD Work Phone: [facility] Comment on above: Thyroid results Start: 11-02-2024 End: 11-02-2024 ambulatory YVAN RAHMAN Facility:[facility] Start: 10-20-2024 ambulatory Yvan Rahman Facility :[facility] Start: 10-20-2024 Non-patient / Non-visit Dr. Rex payton MD -[facility] [facility] Work Phone: Start: 10-20-2024 ambulatory Yvan Rahman Facility :[facility] Start: 10-20-[address] Yvan chow MD -Cardiovascular Services Work Phone: Start: 10-19-2024 End: 10-20-2024 Follow-up encounter Yvan Rahman MD Work Phone: [facility] Start: 10-19-2024 End: 10-19-2024 Patient encounter procedure [facility]m [facility] Work Phone: [facility] Start: 10-19-2024 End: 10-19-2024 ambulatory [facility] Work Phone: [facility] Comment on above: Spirometry Start: 10-16-2024 End: 10-16-2024 Refill Zahra Arias PA-C Work Phone: [facility] Comment on above: Refill Request Start: 10-06-2024 End: 10-06-2024 Follow-up encounter Bernice Maier APRN.CNP Work Phone: [facility] Start: 10-06-2024 End: 10-07-2024 Telephone encounter Yvan Rahman MD Work Phone: [facility] Comment on above: Results Start: 10-06-2024 End: 10-06-2024 Patient encounter procedure Yvan Rahman MD Work Phone: [facility] Comment on above: Reynolds virus (Prima ry Dx); NAIK (dyspnea on exertion); Decreased stamina; Abnormal chest x-ray; Palpitations Start: 10-06-2024 End: 10-06-2024 ambulatory YVAN RAHMAN Facility:[facility] Start: 10-06-2024 End: 10-06-2024 Subsequent hospital visit by physician Leticia [facility] [place] Work Phone: Radiology Comment on above: Acute cough [R05.1] Start: 10-02-2024 End: 10-02-2024 ambulatory YVAN Katalina AILYN Facility:[facility] Start: 09-25-2024 End: 09-25-2024 ambulatory Morro Durham PT [facility] Comment on above: Reynolds virus (Prima ry Dx); Post viral debility; Weakness acquired in ICU; Sepsis without acute organ dysfunction, due to unspecified organism (HCC) Start: 09-24-2024 End: 09-24-2024 Refill Bernice Maier APRN.GRAVITY PROSPECTING OPERATOR HELPER Work Phone: [facility] Comment on above: Refill Request Start: 09-17-2024 End: 09-17-2024 ambulatory Morro Durham PT [facility]: [facility] Comment on above: Reynolds virus (Prima ry Dx); Sepsis without acute organ dysfunction, due to unspecified organism (HCC); Post viral debility; Weakness acquired in ICU Start: 09-02-2024 End: 09-02-2024 Patient encounter procedure Yvan Rahman MD Work Phone: [facility] Comment on above: Reynolds virus (Prima ry Dx); Sepsis without acute organ dysfunction, due to unspecified organism (HCC); Post viral debility; Weakness acquired in ICU; Primary thyroid papillary carcinoma (HCC); Post-surgical hypothyroidism; Hypomagnesemia; Abnormal chest x-ray Start: 09-02-2024 End: 09-02-2024 ambulatory YVAN Katalina AILYN Facility:[facility] Start: 08-28-2024 End: 08-31-2024 Follow-up encounter Bernice Maier APRN.GRAVITY PROSPECTING OPERATOR HELPER Work Phone: [facility] Comment on above: chest xray results Start: 08-28-2024 ambulatory BERNICE MAIER Facilit y:[facility] Start: 08-28-2024 End: 08-28-2024 Subsequent hospital visit by physician Leticia [facility] [place] Work Phone: Radiology Comment on above: Acute cough [R05.1] Start: 08-28-2024 End: 08-28-2024 Patient encounter procedure Bernice Maier STAFFING ASSISTANT.GRAVITY PROSPECTING OPERATOR HELPER Work Phone: [facility] [place] Comment on above: Hospital discharge f ollow-up (Primary Dx); Acute cough; Controlled type 2 diabetes mellitus without complication, without long-term current use of insulin (HCC); Norovirus Start: 08-28-2024 End: 08-28-2024 ambulatory BERNICE MAIER Facility:[facility] Start: 08-25-2024 End: 08-25-2024 Chart abstracting Fletcher Parks MA [facility] [place] Comment on above: ER F/U ([facility] - ER ) Start: 08-22-2024 Non-patient / Non-visit Dr. Yad[facility] Work Phone: Start: 08-21-2024 Non-patient / Non-[facility] Work Phone: Start: 08-21-2024 Non-patient / Non-visit Dr. Case Gongora own DO -[facility] Start: 08-20-2024 Non-patient / Non-visit Dr. Case Gongora own DO -[facility] Start: 08-19-2024 Non-patient / Non-visit Dr. Case Gongora own DO -[facility] Start: 08-19-2024 ambulatory [facility] Facility :[facility] Start: 08-19-2024 End: 08-23-2024 Evaluation and management of inpatient Dr. Yadira Pruett MD -Intensive Care Unit Work Phone: Start: 08-05-2024 End: 08-05-2024 Patient encounter procedure Aletha Reynolds PA-C Work Phone: Neurology Comment on above: Paresthesia of skin (Primary Dx); Neuropathy; Shuffling gait Start: 08-05-2024 End: 08-05-2024 ambulatory ALETHA REYNOLDS Facility:[facility] Start: 07-16-2024 End: 07-16-2024 Ophthalmic examination and evaluation Yvan Rahman MD Work Phone: [facility] Start: 07-16-2024 End: 07-16-2024 Patient encounter procedure Yvan Rahman MD Work Phone: [facility] [place] Comment on above: Medicare annual well ness visit, subsequent (Primary Dx); Controlled type 2 diabetes mellitus without complication, without long-term current use of insulin (HCC); Diabetic eye exam (HCC); Essential hypertension; Mixed hyperlipidemia; Post-surgical hypothyroidism; Primary thyroid papillary carcinoma (HCC); Gastroesophageal reflux disease without esophagitis; Bilateral carotid artery stenosis; Hypomagnesemia; Benign non-nodular prostatic hyperplasia with lower urinary tract symptoms; Advance directive discussed with patient; Screening for depression; Encounter for screening examination for other mental health and behavioral disorders; Resting tremor; Bradykinesia Start: 07-16-2024 End: 07-16-2024 ambulatory YVAN RAHMAN Facility:[facility] Start: 07-10-2024 End: 07-10-2024 Refill Zahra Arias PA-C Work Phone: [facility] [place] Comment on above: Refill Request Start: 07-06-2024 End: 07-06-2024 Refill Zahra Arias PA-C Work Phone: [facility] [place] Comment on above: Refill Request Start: 06-23-2024 End: 06-23-2024 ambulatory YVAN RAHMAN Facility:[facility] Start: 06-22-2024 End: 06-22-2024 Telephone encounter Yvna Rahman MD Work Phone: [facility] [place] Comment on above: requesting blood wor k Start: 05-28-2024 End: 05-28-2024 Refill Zahra Arias PA-C Work Phone: [facility] [place] Comment on above: Refill Request Start: 05-09-2024 End: 05-11-2024 ambulatory Yvan Rahman MD Work Phone: [facility] [place] Comment on above: Message to Huy from [place] Start: 05-04-2024 End: 05-04-2024 Refill Zahra Arias PA-C Work Phone: [facility] Comment on above: Refill Request Start: 04-02-2024 End: 04-02-2024 Chart abstracting Yvan Rahman MD Work Phone: [facility] [place] Start: 01-22-2024 End: 01-22-2024 Refill Cam Borden MD Work Phone: [facility] [place] Comment on above: Refill Request Start: 01-03-2024 End: 01-03-2024 Refill Zahra Hugo PA-C Work Phone: [facility] Comment on above: Refill Request Start: 12-19-2023 Telephone encounter Zahralizeth hein PA-C Work Phone: [facility] Comment on above: Results Start: 12-18-2023 End: 12-18-2023 Patient encounter procedure Zahra Hugo PA-C Work Phone: [facility] Comment on above: Essential hypertensi on (Primary Dx); Primary thyroid papillary carcinoma (HCC); Mixed hyperlipidemia; Benign non-nodular prostatic hyperplasia with lower urinary tract symptoms; Controlled type 2 diabetes mellitus without complication, without long-term current use of insulin (HCC); Post-surgical hypothyroidism; Hypomagnesemia; Medication management Start: 12-05-2023 Refill Zahra Perdomo on PA-C Work Phone: [facility] Comment on above: Refill Request Start: 11-18-2023 Refill Zahra Perdomo on PA-C Work Phone: [facility] [place] Comment on above: Refill Request Start: 09-02-2023 Refill Bernice dempsey APRN.GRAVITY PROSPECTING OPERATOR HELPER Work Phone: [facility] [place] Comment on above: Refill Request Start: 08-27-2023 Refill Bernice dempsey APRN.GRAVITY PROSPECTING OPERATOR HELPER Work Phone: [facility] [place] Comment on above: Refill Request Start: 07-13-2023 Refill Yvan chow MD Work Phone: [facility] Comment on above: Refill Request Start: 04-11-2023 Telephone encounter Adan henley APRN.GRAVITY PROSPECTING OPERATOR HELPER Work Phone: [facility] Comment on above: Results Start: 04-10-2023 End: 04-10-2023 Patient encounter procedure Yvan Rahman MD Work Phone: [facility] Comment on above: Viral enteritis (Ellen merlyn Dx) Start: 04-10-2023 Telephone encounter Iona Rahman APRN.GRAVITY PROSPECTING OPERATOR HELPER Work Phone: [facility] Comment on above: Results Start: 04-08-2023 End: 04-08-2023 Subsequent hospital visit by physician [facility] Work Phone: Radiology Comment on above: Fever, unspecified f ever cause [R50.9] Start: 04-08-2023 End: 04-08-2023 Patient encounter procedure Iona Guadalupe APRN.GRAVITY PROSPECTING OPERATOR HELPER Work Phone: [facility] Comment on above: Flu-like symptoms (P rimary Dx); Tachycardia; Suspected COVID-19 virus infection; Proteinuria, unspecified type; Fever, unspecified fever cause; Diarrhea, unspecified type Start: 02-28-2023 Telephone encounter Yvan Rahman MD Work Phone: [facility] Comment on above: Results Start: 02-25-2023 End: 02-25-2023 Subsequent hospital visit by physician [facility] Work Phone: Radiology Comment on above: Chronic left shoulde r pain [M25.512, G89.29] Start: 02-25-2023 End: 02-25-2023 Ophthalmic examination and evaluation Yvan Rahman MD Work Phone: [facility] Work Phone: Start: 02-25-2023 End: 02-25-2023 Patient encounter procedure Yvan Rahman MD Work Phone: [facility] Comment on above: Controlled type 2 di abetes mellitus without complication, without long-term current use of insulin (HCC) (Primary Dx); Diabetic eye exam (HCC); Essential hypertension; Mixed hyperlipidemia; Post-surgical hypothyroidism; Bilateral carotid artery stenosis; Gastroesophageal reflux disease without esophagitis; Primary thyroid papillary carcinoma (HCC); History of lung cancer; Hypomagnesemia; Chronic left shoulder pain; Medication management; Blisters of multiple sites Start: 12-28-2022 Refill [facility] MD [facility] Comment on above: Refill Request Start: 12-01-2022 Refill Berncie dempsey APRN.CNP Work Phone: [facility] Comment on above: Refill Request Start: 09-22-2022 Refill Zahralizeth Perdomo on PA-C Work Phone: [facility] Comment on above: Refill Request Start: 08-23-2022 End: 08-23-2022 Ophthalmic examination and evaluation Yvan Rahman MD Work Phone: [facility] [place] Start: 08-23-2022 End: 08-23-2022 Patient encounter procedure Yvan Rahman MD Work Phone: [facility] Comment on above: Medicare [facility], subsequent (Primary Dx); Controlled type 2 diabetes mellitus without complication, without long-term current use of insulin (HCC); Diabetic eye exam (HCC); Essential hypertension; Mixed hyperlipidemia; Gastroesophageal reflux disease without esophagitis; Primary thyroid papillary carcinoma (HCC); Post-surgical hypothyroidism; Hypomagnesemia; History of lung cancer; Benign non-nodular prostatic hyperplasia with lower urinary tract symptoms; Elevated prostate specific antigen (PSA); Advance directive discussed with patient; Bilateral carotid artery stenosis Start: 08-09-2022 Refill Yvan chow MD Work Phone: [facility] Comment on above: Refill Request Start: 07-03-2022 Refill Yvan chow MD Work Phone: [facility] [place] Comment on above: Refill Request Start: 06-11-2022 Refill Yvan chow MD Work Phone: [facility] Comment on above: Refill Request Start: 05-08-2022 Refill Yvan chow MD Work Phone: [facility] [place] Comment on above: Refill Request Start: 02-02-2022 Refill Yvan chow MD Work Phone: [facility] [place] Comment on above: Refill Request Start: 01-09-2022 Refill Zahra Nunica on PA-C Work Phone: [facility] [place] Comment on above: Refill Request Start: 12-18-2021 Refill Yvan chow MD Work Phone: [facility] [place] Comment on above: Refill Request Start: 11-23-2021 Refill Yvan chow MD Work Phone: [facility] [place] Comment on above: Refill Request Start: 11-17-2021 Telephone encounter Yvan Rahman MD Work Phone: [facility] [place] Comment on above: Patient Question (CO VID positive 11/16/2021) Start: 11-14-2021 Refill Zahra Nunica on PA-C Work Phone: [facility] [place] Comment on above: Refill Request Start: 08-02-2021 Patient encounter procedure Yvan Rahman MD Work Phone: [facility] Work Phone: Start: 07-31-2021 Ophthalmic examinati on and evaluation YVAN RAHMAN [facility] Start: 07-06-2021 End: 07-06-2021 Subsequent hospital visit by physician eLticia [facility] [place] Work Phone: Radiology Procedures Date Procedure Procedure Detail Performing Clinician Start: 10-19-2024 Brncdilat rspse spmt ry pre&post-brncdilat admn Yvan Rahman MD Work Phone: Start: 10-06-2024 Radiologic exam ches t 2 views Bernice Maier STAFFING ASSISTANT.GRAVITY PROSPECTING OPERATOR HELPER Work Phone: Start: 08-28-2024 Radiologic exam ches t 2 views Bernice Maier APRN.GRAVITY PROSPECTING OPERATOR HELPER Work Phone: Start: 08-28-2024 Hemoglobin A1c/Hemoglobin.total in Blood Bernice Maier APRN.GRAVITY PROSPECTING OPERATOR HELPER Work Phone: Start: 08-19-2024 Gram stain microscopy Willow Rahman MD Work Phone: Start: 08-19-2024 Legionella pneumophi la antigen assay Dr. Yvan Rahman MD Work Phone: Start: 08-19-[address] Yvan Rahman MD Work Phone: Start: 08-19-[address] l culture Dr. Yvan Rahman MD Work Phone: Start: 08-19-2024 SARS-CoV-2, Influenz a & RSV (PCR) Dr. Yvan Rahman MD Work Phone: Start: 08-19-2024 Streptococcus pneumo niae antigen assay Dr. Yvan Rahman MD Work Phone: Start: 08-19-[address] Dallin Rahman MD Work Phone: Start: 08-19-2024 Plain chest X-ray Dr. Glenis Rahman MD Work Phone: Start: 07-16-2024 Adult depression scr eening assessment Yvan Rahman MD Work Phone: Start: 04-08-2023 Radiologic exam ches t 2 views Iona Guadalupe APRN.GRAVITY PROSPECTING OPERATOR HELPER Work Phone: Start: 04-08-2023 COVID & INFLUENZA A/ B & RSV NAAT, ROUTINE Iona Guadalupe APRN.GRAVITY PROSPECTING OPERATOR HELPER Work Phone: Start: 04-08-2023 Culture bacterial quanttative colony count urine Iona Guadalupe APRN.GRAVITY PROSPECTING OPERATOR HELPER Work Phone: Start: 04-08-2023 INFLUENZA A&B MOLECU LAR (POC) Iona Guadalupe APRN.GRAVITY PROSPECTING OPERATOR HELPER Work Phone: Start: 04-08-2023 Urnls dip stick/tabl et rgnt auto w/o microscopy Iona Guadalupe APRN.ALAINA Work Phone: Start: 02-25-2023 Radex shoulder compl ete minimum 2 views Yvan Rahman MD Work Phone: Start: 07-06-2021 Radiologic exam ches t 2 views [facility] Provider Plan of Treatment Date Care Activity Detail Author Start: 01-11-2028 Urine microalbumin profile [facility] Start: 01-02-2026 Hepatitis B surface antibody level LDL Cholesterol [facility] Start: 07-21-2025 End: 07-21-2025 Patient encounter procedure 07/21/2025 10:40 AM EDT Office Visit [facility] [address], [place] [id number] Yvan Rahman MD [address] [place], [place] [id number] Medicare Wellness [facility] Comment on above: Medicare Wellness Start: 07-16-2025 Anxiety Screening Anxiety Screening [facility] Start: 07-16-2025 Depression Screening Depression Screening [facility] Start: 07-16-2025 Diabetic foot examination Diabetic Foot Exam [place] Start: 07-16-2025 Medicare Annual Wellness Visit Medicare Annual Wellness Visit [facility] Start: 07-16-2025 RSV Vaccine (1 - 1-dose 75+ series) RSV Vaccine (1 - 1-dose 75+ series) [facility] Comment on above: Postponed from 2017 (Insurance Cov erage) Start: 07-09-2025 End: 10-08-2025 CBC W Auto Differential panel - Blood COMPLETE BLOOD COUNT AND DIFFERENTIAL Lab Routine Controlled type 2 diabetes mellitus without complication, without long-term current use of insulin (HCC) 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) Expected: 07/09/2025, Expires: 10/08/2025 [facility] Comment on above: Expected: 07/09/2025, Expires: Start: 07-09-2025 End: 10-08-2025 Cobalamin (Vitamin B12) [Mass/volume] in Serum or Plasma VITAMIN B12 Lab Routine Gastroesophageal reflux disease without esophagitis Medication management Expected: 07/09/2025, Expires: 10/08/2025 [facility] Comment on above: Expected: 07/09/2025, Expires: Start: 07-09-2025 End: 10-08-2025 Comprehensive metabolic 2000 panel - Serum or Plasma COMPREHENSIVE METABOLIC PANEL Lab Routine Controlled type 2 diabetes mellitus without complication, without long-term current use of insulin ([facility]LY [facility]) Essential hypertension Mixed hyperlipidemia Expected: 07/09/2025, Expires: 10/08/2025 [facility] Comment on above: Expected: 07/09/2025, Expires: Start: 07-09-2025 End: 10-08-2025 Hemoglobin A1c in Blood HEMOGLOBIN A1C Lab Routine Controlled type 2 diabetes mellitus without complication, without long-term current use of insulin ([facility]) Expected: 07/09/2025, Expires: 10/08/2025 [facility] Comment on above: Expected: 07/09/2025, Expires: Start: 07-09-2025 End: 10-08-2025 LIPID PANEL, NONFASTING LIPID PANEL, NONFASTING Lab Routine Essential hypertension Mixed hyperlipidemia Expected: 07/09/2025, Expires: 10/08/2025 [facility] Comment on above: Expected: 07/09/2025, Expires: Start: 07-09-2025 End: 10-08-2025 Magnesium [Mass/volume] in Serum or Plasma MAGNESIUM Lab Routine Gastroesophageal reflux disease without esophagitis Hypomagnesemia Medication management Expected: 07/09/2025, Expires: 10/08/2025 [facility] Comment on above: Expected: 07/09/2025, Expires: Start: 07-09-2025 End: 10-08-2025 Microalbumin/Creatinine [Mass Ratio] in Urine ALBUMIN/CREATININE RATIO, URINE Lab Routine Controlled type 2 diabetes mellitus without complication, without long-term current use of insulin ([facility]) Expected: 07/09/2025, Expires: 10/08/2025 [facility] Comment on above: Expected: 07/09/2025, Expires: Start: 07-09-2025 End: 10-08-2025 Thyroglobulin and Thyrogobulin Ab panel - Serum or Plasma THYROGLOBULIN, SERUM WITH REFLEX TO IA OR LC-MS/MS Lab Routine Primary thyroid papillary carcinoma (HCC) Expected: 07/09/2025, Expires: 10/08/2025 [facility] Comment on above: Expected: 07/09/2025, Expires: Start: 07-09-2025 End: 10-08-2025 Thyrotropin [Units/volume] in Serum or Plasma THYROID STIMULATING HORMONE Lab Routine 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) Expected: 07/09/2025, Expires: 10/08/2025 [facility] Comment on above: Expected: 07/09/2025, Expires: Start: 07-09-2025 End: 10-08-2025 Urinalysis complete panel - Urine URINALYSIS, WITH MICROSCOPIC Lab Routine Controlled type 2 diabetes mellitus without complication, without long-term current use of insulin ([facility]) Essential hypertension Mixed hyperlipidemia Expected: 07/09/2025, Expires: 10/08/2025 [facility] Comment on above: Expected: 07/09/2025, Expires: Start: 07-05-2025 Hemoglobin A1c measurement HbA1C [facility] Start: 06-23-2025 Hepatitis B screening Urine Albumin:Creatinine Ratio [facility] Start: 06-23-2025 Hepatitis B surface antibody level LDL Cholesterol [facility] Start: 05-28-2025 End: 05-28-2025 Patient encounter procedure Pulmonary Medicine Comment on above: 6 MTH F/U Start: 05-28-2025 End: 05-28-2025 ambulatory PULM LAB [facility] Comment on above: PFT Start: 03-31-2025 Glaucoma screening Dilated Retinal Exam [facility] Start: 03-22-2025 End: 06-21-2025 Thyrotropin [Units/volume] in Serum or Plasma THYROID STIMULATING HORMONE Lab Routine 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) Expected: 03/22/2025, Expires: 06/21/2025 [facility] Work Phone: Comment on above: Expected: 03/22/2025, Expires: Start: 02-18-2025 End: 02-18-2025 Patient encounter procedure 02/18/2025 11:00 AM EDT Office Visit [facility] [address] [place] [address] Nikkie Galindo MD [address] [place] [address] SVT (supraventricular tachycardia) (HCC) [I47.10] [facility] Cardiology [facility] Comment on above: SVT (supraventricular tachycardia) (HCC) [I47.10] Start: 01-20-2025 End: 01-20-2025 Patient encounter procedure 01/20/2025 11:00 AM EDT Office Visit [facility] [place] [address] [place] [address] Yvan Rahman MD [address] [place], [place] [phone] 6 month follow up [facility] [place] Comment on above: 6 month follow up Start: 01-11-2025 Influenza vaccination [facility] Start: 01-02-2025 End: 01-02-2025 ambulatory 01/02/2025 8:45 AM EDT Results Only [facility] [address] [place] [address] [facility] Start: 01-01-2025 End: 04-02-2025 Hemoglobin A1c in Blood HEMOGLOBIN A1C Lab Routine Controlled type 2 diabetes mellitus without complication, without long-term current use of insulin (HCC) Expected: 01/01/2025, Expires: 04/02/2025 [facility] Comment on above: Expected: 01/01/2025, Expires: Start: 01-01-2025 End: 04-02-2025 LIPID PANEL, NONFASTING LIPID PANEL, NONFASTING Lab Routine Controlled type 2 diabetes mellitus without complication, without long-term current use of insulin (HCC) Essential hypertension Mixed hyperlipidemia Expected: 01/01/2025, Expires: 04/02/2025 [facility] Comment on above: Expected: 01/01/2025, Expires: Start: 01-01-2025 End: 04-02-2025 Magnesium [Mass/volume] in Serum or Plasma MAGNESIUM Lab Routine Hypomagnesemia Expected: 01/01/2025, Expires: 04/02/2025 [facility] Comment on above: Expected: 01/01/2025, Expires: Start: 01-01-2025 End: 04-02-2025 Thyrotropin [Units/volume] in Serum or Plasma THYROID STIMULATING HORMONE Lab Routine 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) Expected: 01/01/2025, Expires: 04/02/2025 [facility] Comment on above: Expected: 01/01/2025, Expires: Start: 01-01-2025 End: 01-01-2025 ambulatory 01/01/2025 9:15 AM EDT Results Only [facility] [address] [place] [address] [facility] Start: 12-23-2024 Evaluation of diagnostic study results [facility] Start: 12-21-2024 Hemoglobin A1c measurement HbA1C [facility] Start: 12-17-2024 Hepatitis B screening Urine Albumin:Creatinine Ratio [facility] Start: 12-17-2024 Hepatitis B surface antibody level LDL Cholesterol [facility] Start: 11-27-2024 End: 02-26-2025 Hemoglobin A1c in Blood HEMOGLOBIN A1C Lab Routine Controlled type 2 diabetes mellitus without complication, without long-term current use of insulin (HCC) Expected: 11/27/2024, Expires: 02/26/2025 [facility] Work Phone: Comment on above: Expected: 11/27/2024, Expires: Start: 11-27-2024 Hemoglobin A1c measurement HbA1C [facility] Start: 11-25-2024 End: 11-25-2024 Patient encounter procedure 11/25/2024 1:30 PM EDT Office Visit Pulmonary Medicine [address] [place] [address] Livia Paredes MD [address] [place] [address] Abnormal PFTs [R94.2] Pulmonary Medicine Comment on above: Abnormal PFTs [R94.2] Start: 11-25-2024 End: 11-25-2024 ambulatory 11/25/2024 1:00 PM EDT Procedure PULM LAB [facility] [address] [place] [address] [facility], Pulm Lab [facility] [address] [place] [address] Abnormal PFTs [R94.2] [facility] Comment on above: Abnormal PFTs [R94.2] Start: 11-09-2024 [facility]enza [facility] Comment on above: Postponed from 01/12/2024 (Declined at t his time) Start: 11-02-2024 End: 02-01-2025 Magnesium [Mass/volume] in Serum or Plasma MAGNESIUM Lab Routine Hypomagnesemia Expected: 11/02/2024, Expires: 02/01/2025 [facility] Work Phone: Comment on above: Expected: 11/02/2024, Expires: Start: 11-02-2024 End: 02-01-2025 Thyrotropin [Units/volume] in Serum or Plasma THYROID STIMULATING HORMONE Lab Routine 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 Expected: 11/02/2024, Expires: 02/01/2025 [facility] Comment on above: Expected: 11/02/2024, Expires: Start: 11-02-2024 End: 11-02-2024 ambulatory 11/02/2024 10:00 AM EDT Results Only [facility] [address] [place] [address] nag and TSH [facility] Comment on above: nag and TSH Start: 10-19-2024 End: 10-19-2024 Patient encounter procedure 10/19/2024 10:30 AM EDT Office Visit Cardiology [address] [place] [address] NAIK (dyspnea on exertion) [R06.09]; Decreased stamina [R53.83]; Palpitations [R00.2] Cardiology Comment on above: NAIK (dyspnea on exertion) [R06.09]; Decr eased stamina [R53.83]; Palpitations [R00.2] Start: 10-19-2024 End: 10-19-2024 ambulatory 10/19/2024 9:30 AM EDT Procedure PULM LAB [facility] [address] [place] [address] Wstr, Pulm Lab [facility] [address] [place] [address] NAIK (dyspnea on exertion) [R06.09]; Decreased stamina [R53.83]; Palpitations [R00.2] [facility] Comment on above: NAIK (dyspnea on exertion) [R06.09]; Decr eased stamina [R53.83]; Palpitations [R00.2] Start: 10-16-2024 End: 10-16-2024 ambulatory 10/16/2024 1:00 PM EDT OT/PT/Speech Visit [facility] Physical Therapy [address] [place], [place] [phone] Morro Durham, PT [address] [place], [place] [phone] Reynolds virus [A08.11] [facility] Comment on above: Reynolds virus [A08.11] Start: 10-09-2024 End: 10-09-2024 ambulatory 10/09/2024 1:00 PM EDT OT/PT/Speech Visit [facility] [address], [place] [phone] Morro [place], PT [address] [place], [place] [phone] Reynolds virus [A08.11] [facility] Comment on above: Reynolds virus [A08.11] Start: 10-06-2024 End: 10-06-2024 Patient encounter procedure 10/06/2024 11:00 AM EDT Office Visit [facility] [address] [facility], [place] [id number] Yvan Rahman MD [address] [place] [address] follow up Sugars/BP from hospital stay [facility] Comment on above: follow up Sugars/BP from hospital stay Start: 10-02-2024 End: 10-02-2024 ambulatory 10/02/2024 1:00 PM EDT OT/PT/Speech Visit [facility] [address] [place], [place] [phone] Morro Durham, PT [address] [place], [place] [id number] Reynolds virus [A08.11] [facility] Comment on above: Reynolds virus [A08.11] Start: 09-25-2024 End: 09-25-2024 ambulatory 09/25/2024 11:15 AM EDT OT/PT/Speech Visit [facility] [address] [place], [place] [phone] Morro Durham, PT [address] [place], [place] [phone] Reynolds virus [A08.11] [facility] Comment on above: Reynolds virus [A08.11] Start: 09-17-2024 End: 09-17-2024 ambulatory 09/17/2024 12:15 PM EDT OT/PT/Speech Visit [facility] [address], [place] [phone] Morro Durham, PT [address] [place], [place] [phone] Reynolds virus [A08.11]; Sepsis without acute organ dysfunction, due to unspecified organism (HCC) [A41.9]; Post viral debility [R53.81, B94.8]; Weakness acquired in ICU [R53.1] [facility] Comment on above: Reynolds virus [A08.11]; Sepsis without a cute organ dysfunction, due to unspecified organism (HCC) [A41.9]; Post viral debility [R53.81, B94.8]; Weakness acquired in ICU [R53.1] Start: 09-16-2024 End: 09-16-2024 ambulatory 09/16/2024 10:00 AM EDT Results Only [facility] [address] [place] [address] [facility] Start: 09-15-2024 End: 12-15-2024 Magnesium [Mass/volume] in Serum or Plasma MAGNESIUM Lab Routine Hypomagnesemia Expected: 09/15/2024, Expires: 12/15/2024 [facility] Comment on above: Expected: 09/15/2024, Expires: Start: 09-04-2024 End: 09-27-2025 XR Chest PA and Lateral XR CHEST 2V FRONTAL/LAT Radiology Routine Acute cough Expected: 09/04/2024, Expires: 09/27/2025 [facility] Work Phone: Comment on above: Expected: 09/04/2024, Expires: 6 Start: 09-02-2024 End: 09-02-2024 Patient encounter procedure 09/02/2024 11:20 AM EDT Office Visit [facility] [address] [place] [address] Yvan Rahman MD [address] [place] [address] Discharged from [facility] 08/23/24 - Norovirus, septic Family [facility] Comment on above: Discharged from [facility] 08/23/24 - Norovirus, septic Start: 08-23-2024 Patient discharge [facility] Start: 08-21-2024 Referral to service [facility] Start: 08-20-2024 [facility] Start: 08-20-2024 Referral to service [facility] Start: 08-20-2024 Referral to occupational therapist [facility] Start: 08-20-2024 Care planning and problem solving actions [facility] Start: 08-20-2024 Enteric precautions [facility] Start: 08-19-2024 Bacteria identified in Blood by Culture Blood Culture [facility] Start: 08-19-2024 Bacteria identified in Urine by Culture Urine Culture [facility] Start: 08-19-2024 Assessment of risk of venous thromboembolism [facility] Start: 08-19-2024 Care regimes management [facility] Start: 08-19-2024 Catheterization of vein [facility] Start: 08-19-2024 Elevation of head of bed [facility] Start: 08-19-2024 Inhalation therapy procedure [facility] Start: 08-19-2024 Insertion of catheter into peripheral vein [facility] Start: 08-19-2024 Measuring intake and output [facility] Start: 08-19-2024 Notification of physician [facility] Start: 08-19-2024 Patient education [facility] Start: 08-19-2024 Providing care according to standard [facility] Start: 08-19-2024 Vital signs measurements [facility] Start: 08-19-2024 End: 08-19-2024 [facility] Start: 08-19-2024 Following clinical pathway protocol [facility] Start: 08-19-2024 Bacteria identified in Sputum by Culture [facility] Start: 08-19-2024 Legionella pneumophila Ag [Presence] in Urine [facility] Start: 08-19-2024 Streptococcus pneumoniae antigen assay [facility] Start: 08-19-2024 Verification routine [facility] Start: 08-19-2024 Admission procedure [facility] Start: 08-19-2024 Hospital admission, emergency, from emergency room, medical nature [facility] Start: 08-19-2024 End: 08-19-2024 [facility] Start: 08-05-2024 End: 11-04-2024 PROTEIN ELECTROPHORESIS SERUM W/INTERP PROTEIN ELECTROPHORESIS SERUM W/INTERP Lab Routine Paresthesia of skin Expected: 08/05/2024, Expires: 11/04/2024 [facility] Work Phone: Comment on above: Expected: 08/05/2024, Expires: Start: 08-05-2024 End: 08-05-2024 Patient encounter procedure 08/05/2024 12:30 PM EDT Office Visit Neurology [address] [facility] [place], [place] [phone] Aletha Reynolds PA-C [address] [facility] [place] [address] Resting tremor [G25.2]; Bradykinesia [R25.8] Neurology Comment on above: Resting tremor [G25.2]; Bradykinesia [R2 5.8] Start: 07-16-2024 End: 10-15-2024 Thyrotropin [Units/volume] in Serum or Plasma THYROID STIMULATING HORMONE Lab Routine 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) Expected: 07/16/2024, Expires: 10/15/2024 [facility] Work Phone: Comment on above: Expected: 07/16/2024, Expires: Start: 07-16-2024 End: 07-16-2024 Patient encounter procedure 07/16/2024 11:20 AM EST Office Visit [facility] [place] [address] [facility] [place], [place] [phone] Yvan Rahman MD [address] [facility] [place], [place] [phone] Medicare wellness [facility] [place] Comment on above: Medicare wellness Start: 06-24-2024 End: 06-24-2024 Patient encounter procedure 06/24/2024 11:20 AM EST Office Visit Family [facility] [place] [address] [facility] [place], [place] [phone] Yvan Rahman MD [address] [facility] [place], [place] [phone] medicare wellness [facility] [place] Comment on above: medicare wellness Start: 06-23-2024 End: 06-23-2024 ambulatory 06/23/2024 8:30 AM EST Results Only [place] [facility] [address] [facility] [place] [address] [place] [facility] Start: 06-22-2024 End: 09-21-2024 CBC W Auto Differential panel - Blood COMPLETE BLOOD COUNT AND DIFFERENTIAL Lab Routine Controlled type 2 diabetes mellitus without complication, without long-term current use of insulin (HCC) Post-surgical hypothyroidism Expected: 06/22/2024, Expires: 09/21/2024 [facility] Comment on above: Expected: 06/22/2024, Expires: Start: 06-22-2024 End: 09-21-2024 Cobalamin (Vitamin B12) [Mass/volume] in Serum or Plasma VITAMIN B12 Lab Routine Gastroesophageal reflux disease without esophagitis Medication management Expected: 06/22/2024, Expires: 09/21/2024 [facility] Comment on above: Expected: 06/22/2024, Expires: Start: 06-22-2024 End: 09-21-2024 Comprehensive metabolic 2000 panel - Serum or Plasma COMPREHENSIVE METABOLIC PANEL Lab Routine Controlled type 2 diabetes mellitus without complication, without long-term current use of insulin (HCC) Mixed hyperlipidemia Essential hypertension Expected: 06/22/2024, Expires: 09/21/2024 [facility] Comment on above: Expected: 06/22/2024, Expires: Start: 06-22-2024 End: 09-21-2024 Hemoglobin A1c in Blood HEMOGLOBIN A1C Lab Routine Controlled type 2 diabetes mellitus without complication, without long-term current use of insulin (HCC) Expected: 06/22/2024, Expires: 09/21/2024 [facility] Comment on above: Expected: 06/22/2024, Expires: Start: 06-22-2024 End: 09-21-2024 LIPID PANEL, NONFASTING LIPID PANEL, NONFASTING Lab Routine Controlled type 2 diabetes mellitus without complication, without long-term current use of insulin (HCC) Mixed hyperlipidemia Essential hypertension Bilateral carotid artery stenosis Expected: 06/22/2024, Expires: 09/21/2024 [facility] Comment on above: Expected: 06/22/2024, Expires: Start: 06-22-2024 End: 09-21-2024 Magnesium [Mass/volume] in Serum or Plasma MAGNESIUM Lab Routine Gastroesophageal reflux disease without esophagitis Hypomagnesemia Medication management Expected: 06/22/2024, Expires: 09/21/2024 [facility] Comment on above: Expected: 06/22/2024, Expires: Start: 06-22-2024 End: 09-21-2024 Microalbumin/Creatinine [Mass Ratio] in Urine ALBUMIN/CREATININE RATIO, URINE Lab Routine Controlled type 2 diabetes mellitus without complication, without long-term current use of insulin (HCC) Expected: 06/22/2024, Expires: 09/21/2024 [facility] Work Phone: Comment on above: Expected: 06/22/2024, Expires: Start: 06-22-2024 End: 09-21-2024 Prostate Specific Ag Free [Mass/volume] in Serum or Plasma PROSTATE SPECIFIC ANTIGEN, FREE Lab Routine Elevated prostate specific antigen (PSA) Expected: 06/22/2024, Expires: 09/21/2024 [facility] Comment on above: Expected: 06/22/2024, Expires: Start: 06-22-2024 End: 09-21-2024 Thyroglobulin and Thyrogobulin Ab panel - Serum or Plasma THYROGLOBULIN, SERUM WITH REFLEX TO IA OR LC-MS/MS Lab Routine Primary thyroid papillary carcinoma (HCC) Expected: 06/22/2024, Expires: 09/21/2024 [facility] Comment on above: Expected: 06/22/2024, Expires: Start: 06-22-2024 End: 09-21-2024 Thyrotropin [Units/volume] in Serum or Plasma THYROID STIMULATING HORMONE Lab Routine Post-surgical hypothyroidism Expected: 06/22/2024, Expires: 09/21/2024 [facility] Comment on above: Expected: 06/22/2024, Expires: Start: 06-22-2024 End: 09-21-2024 Urinalysis complete panel - Urine URINALYSIS, WITH MICROSCOPIC Lab Routine Controlled type 2 diabetes mellitus without complication, without long-term current use of insulin (HCC) Mixed hyperlipidemia Essential hypertension Expected: 06/22/2024, Expires: 09/21/2024 [facility] Comment on above: Expected: 06/22/2024, Expires: 5 Start: 06-19-2024 Hemoglobin A1c measurement HbA1C [facility] Start: 06-12-2024 Diabetic foot examination Diabetic Foot Exam [place] Comment on above: Postponed from 08/24/2023 (Declined at t his time) Start: 05-13-2024 Advance Directive Discussion Advance Directive Discussion [facility] Start: 04-10-2024 Annual PCP Team Chronic Disease Visit Annual PCP Team Chronic Disease Visit [facility] Start: 04-10-2024 BP Controlled (<130/80) BP Controlled (<130/80) [facility] Start: 04-08-2024 BP Controlled (<130/80) BP Controlled (<130/80) [facility] Start: 03-26-2024 Glaucoma screening Dilated Retinal Exam [facility] Start: 03-26-2024 Hepatitis C antibody, confirmatory test Dilated Retinal Exam [facility] Start: 02-26-2024 Annual PCP Team Chronic Disease Visit Annual PCP Team Chronic Disease Visit [facility] Start: 02-22-2024 Hepatitis B surface antibody level LDL Cholesterol [facility] Start: 01-12-2024 Covid-19 Vaccine ( season) Covid-19 Vaccine ( season) [facility] Start: 01-12-2024 Covid-19 Vaccine ( season) Covid-19 Vaccine ( season) [facility] Start: 01-12-2024 Influenza vaccination Influenza Vaccine (#1) [facility] Start: 12-18-2023 End: 03-18-2024 Cobalamin (Vitamin B12) [Mass/volume] in Serum or Plasma [facility] Comment on above: Expected: 12/18/2023, Expires: Start: 12-18-2023 End: 03-18-2024 Comprehensive metabolic 2000 panel - Serum or Plasma [facility] Comment on above: Expected: 12/18/2023, Expires: 4 Start: 12-18-2023 End: 03-18-2024 Hemoglobin A1c in Blood [facility] Work Phone: Comment on above: Expected: 12/18/2023, Expires: Start: 12-18-2023 End: 03-18-2024 LIPID PANEL, NONFASTING [facility] Comment on above: Expected: 12/18/2023, Expires: Start: 12-18-2023 End: 03-18-2024 Magnesium [Mass/volume] in Serum or Plasma [facility] Comment on above: Expected: 12/18/2023, Expires: 4 Start: 12-18-2023 End: 03-18-2024 Microalbumin/Creatinine [Mass Ratio] in Urine [facility] Comment on above: Expected: 12/18/2023, Expires: Start: 12-18-2023 End: 03-18-2024 THYROGLOBULIN ANTIBODY [facility] Comment on above: Expected: 12/18/2023, Expires: 4 Start: 12-18-2023 End: 03-18-2024 Thyrotropin [Units/volume] in Serum or Plasma [facility] Comment on above: Expected: 12/18/2023, Expires: Start: 12-18-2023 End: 03-18-2024 Urinalysis complete panel - Urine [facility] Comment on above: Expected: 12/18/2023, Expires: 4 Start: 08-24-2023 3 comp foot exam completed DIABETIC FOOT EXAM [facility] Start: 08-24-2023 ANNUAL PCP TEAM CHRONIC DISEASE VISIT ANNUAL PCP TEAM CHRONIC DISEASE VISIT [facility] Start: 08-24-2023 BP CONTROLLED (<130/80) BP CONTROLLED (<130/80) [facility] in Start: 08-24-2023 Diabetic foot examination Diabetic Foot Exam [place] Start: 08-23-2023 Hemoglobin A1c measurement HbA1C [facility] Start: 08-23-2023 Hemoglobin A1c/Hemoglobin.total in Blood HbA1C [facility] Start: 08-17-2023 Hepatitis B screening URINE ALBUMIN:CREATININE RATIO [facility] Start: 08-17-2023 Hepatitis B surface antibody level LDL CHOLESTEROL [facility] Start: 08-16-2023 End: 10-16-2023 ALBUMIN/CREAT RATIO RND UR ALBUMIN/CREAT RATIO RND UR Lab Routine Controlled type 2 diabetes mellitus without complication, without long-term current use of insulin (HCC) Expected: 08/16/2023, Expires: 10/16/2023 [facility] Work Phone: Comment on above: Expected: 08/16/2023, Expires: Start: 08-16-2023 End: 10-16-2023 CBC W Auto Differential panel - Blood CBC + DIFF Lab Routine Controlled type 2 diabetes mellitus without complication, without long-term current use of insulin (HCC) Post-surgical hypothyroidism Expected: 08/16/2023, Expires: 10/16/2023 [facility] Work Phone: Comment on above: Expected: 08/16/2023, Expires: Start: 08-16-2023 End: 10-16-2023 Cobalamin (Vitamin B12) [Mass/volume] in Serum or Plasma VITAMIN B12 BLOOD Lab Routine Gastroesophageal reflux disease without esophagitis Medication management Expected: 08/16/2023, Expires: 10/16/2023 [facility] Work Phone: Comment on above: Expected: 08/16/2023, Expires: Start: 08-16-2023 End: 10-16-2023 Comprehensive metabolic 2000 panel - Serum or Plasma COMP METABOLIC PANEL Lab Routine Controlled type 2 diabetes mellitus without complication, without long-term current use of insulin (HCC) Essential hypertension Mixed hyperlipidemia Expected: 08/16/2023, Expires: 10/16/2023 [facility] Work Phone: Comment on above: Expected: 08/16/2023, Expires: Start: 08-16-2023 End: 10-16-2023 Hemoglobin A1c in Blood HGB A1C Lab Routine Controlled type 2 diabetes mellitus without complication, without long-term current use of insulin (HCC) Expected: 08/16/2023, Expires: 10/16/2023 [facility] Work Phone: Comment on above: Expected: 08/16/2023, Expires: Start: 08-16-2023 End: 10-16-2023 LIPID PANEL, NONFASTING LIPID PANEL, NONFASTING Lab Routine Essential hypertension Mixed hyperlipidemia Bilateral carotid artery stenosis Expected: 08/16/2023, Expires: 10/16/2023 [facility] Work Phone: Comment on above: Expected: 08/16/2023, Expires: Start: 08-16-2023 End: 10-16-2023 Magnesium [Mass/volume] in Serum or Plasma MAGNESIUM BLD Lab Routine Gastroesophageal reflux disease without esophagitis Hypomagnesemia Medication management Expected: 08/16/2023, Expires: 10/16/2023 [facility] Work Phone: Comment on above: Expected: 08/16/2023, Expires: Start: 08-16-2023 End: 10-16-2023 Thyrotropin [Units/volume] in Serum or Plasma TSH BLD Lab Routine 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) Expected: 08/16/2023, Expires: 10/16/2023 [facility] Work Phone: Comment on above: Expected: 08/16/2023, Expires: Start: 08-16-2023 End: 10-16-2023 Urinalysis complete panel - Urine URINALYSIS, WITH MICROSCOPIC Lab Routine Controlled type 2 diabetes mellitus without complication, without long-term current use of insulin (HCC) Essential hypertension Mixed hyperlipidemia Expected: 08/16/2023, Expires: 10/16/2023 [facility] Work Phone: Comment on above: Expected: 08/16/2023, Expires: Start: 05-13-2023 Advance Directive Discussion Advance Directive Discussion [facility] Start: 05-13-2023 Behavioral Health Screening Behavioral Health Screening [facility] Start: 05-13-2023 Depression Assessment Depression Assessment [facility] Start: 04-26-2023 End: 06-26-2023 Thyrotropin [Units/volume] in Serum or Plasma TSH BLD Lab Routine Post-surgical hypothyroidism Expected: 04/26/2023, Expires: 06/26/2023 [facility] Work Phone: Comment on above: Expected: 04/26/2023, Expires: Start: 02-15-2023 Hemoglobin A1c/Hemoglobin.total in Blood HBA1C [facility] Start: 02-08-2023 ANNUAL PCP TEAM CHRONIC DISEASE VISIT ANNUAL PCP TEAM CHRONIC DISEASE VISIT [facility] Start: 02-08-2023 COVID-19 VACCINE (4 - Booster for Pfizer series) COVID-19 VACCINE (4 - Booster for Pfizer series) [facility] Comment on above: Postponed from 04/14/2021 (Declined at t his time) Start: 02-08-2023 COVID-19 VACCINE (4 - Pfizer series) COVID-19 VACCINE (4 - Pfizer series) [facility] Comment on above: Postponed from 04/14/2021 (Declined at t his time) Start: 02-08-2023 End: 04-10-2023 Hemoglobin A1c in Blood HGB A1C Lab Routine Controlled type 2 diabetes mellitus without complication, without long-term current use of insulin (HCC) Expected: 02/08/2023, Expires: 04/10/2023 [facility] Work Phone: Comment on above: Expected: 02/08/2023, Expires: 3 Start: 02-08-2023 End: 04-10-2023 LIPID PANEL, NONFASTING LIPID PANEL, NONFASTING Lab Routine Controlled type 2 diabetes mellitus without complication, without long-term current use of insulin (HCC) Essential hypertension Mixed hyperlipidemia Expected: 02/08/2023, Expires: 04/10/2023 [facility] Work Phone: Comment on above: Expected: 02/08/2023, Expires: 3 Start: 02-08-2023 End: 04-10-2023 Thyrotropin [Units/volume] in Serum or Plasma TSH BLD Lab Routine 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 Expected: 02/08/2023, Expires: 04/10/2023 [facility] Work Phone: Comment on above: Expected: 02/08/2023, Expires: 3 Start: 02-05-2023 Hepatitis B surface antibody level LDL CHOLESTEROL [facility] Start: 01-11-2023 Covid-19 Vaccine () Covid-19 Vaccine ( season) [facility] Start: 01-11-2023 Influenza vaccination INFLUENZA (#1) [facility] Start: 08-05-2022 Hemoglobin A1c/Hemoglobin.total in Blood HBA1C [facility] Start: 08-02-2022 3 comp foot exam completed DIABETIC FOOT EXAM [facility] Start: 08-02-2022 ANNUAL PCP TEAM CHRONIC DISEASE VISIT ANNUAL PCP TEAM CHRONIC DISEASE VISIT [facility] Start: 08-02-2022 BP CONTROLLED (<130/80) BP CONTROLLED (<130/80) [facility] Start: 07-21-2022 Hepatitis B screening URINE ALBUMIN:CREATININE RATIO [facility] Start: 07-21-2022 Hepatitis B surface antibody level LDL CHOLESTEROL [facility] Start: 05-13-2022 ADVANCE DIRECTIVE DISCUSSION ADVANCE DIRECTIVE DISCUSSION [facility] Start: 05-13-2022 DEPRESSION ASSESSMENT DEPRESSION ASSESSMENT [facility] Start: 03-13-2022 Hepatitis C antibody, confirmatory test DILATED RETINAL EXAM [facility] Start: 01-21-2022 Hemoglobin A1c/Hemoglobin.total in Blood HBA1C [facility] Start: 07-15-2021 BP CONTROLLED (<130/80) BP CONTROLLED (<130/80) [facility] Start: 06-20-2021 COVID-19 VACCINE (4 - Booster for Pfizer series) COVID-19 VACCINE (4 - Booster for Pfizer series) [facility] Start: 04-14-2021 COVID-19 VACCINE (4 - Booster for Pfizer series) COVID-19 VACCINE (4 - Booster for Pfizer series) [facility] Start: 2017 RSV Vaccine (1 - 1-dose 75+ series) RSV Vaccine (1 - 1-dose 75+ series) [facility] Start: 2002 RSV Vaccine (1 - 1-dose 60+ series) RSV Vaccine (1 - 1-dose 60+ series) [facility] Start: 1960 Anxiety Screening Anxiety Screening [facility] Start: 1960 Depression Screening Depression Screening [facility] Clostridioides diffi cile toxin genes [Presence] in Stool by CRISTINA with probe detection C. DIFFICILE PCR Lab Routine Diarrhea, unspecified type 04/10/2023 11:50 AM trivago [facility] Work Phone: End: 10-06-2025 Echocardiography ECHO Cardiology Routine NAIK (dyspnea on exertion) Decreased stamina Palpitations 1 Occurrences starting 10/06/2024 until 10/06/2025 [facility] Comment on above: 1 Occurrences starting 10/06/2024 until 10/06/2025 End: 08-05-2025 EMG(NEURO/NI) EMG(NEURO/NI) EMG Routine Paresthesia of skin 1 Occurrences starting 08/05/2024 until 08/05/2025 [facility] Comment on above: 1 Occurrences starting 08/05/2024 until 08/05/2025 ENTERIC BACTERIAL PA CHRISTOPHER BY PCR ENTERIC BACTERIAL PANEL BY PCR Lab Routine Diarrhea, unspecified type 04/10/2023 11:50 AM [facility] Work Phone: Lactic acid measurement [facility] End: 12-25-2025 NITRIC OXIDE, EXHALED NITRIC OXIDE, EXHALED PFT Routine Obstructive lung disease (HCC) 1 Occurrences starting 11/25/2024 until 12/25/2025 [facility] Work Phone: Comment on above: 1 Occurrences starting 11/25/2024 until 12/25/2025 Ova and parasites identified in Unspecified specimen by Light microscopy OVA + PARA MICROSCOPIC Microbiology Routine Diarrhea, unspecified type 04/10/2023 11:50 AM [facility] Work Phone: Patient Education Understanding Norovirus ED Fall Prevention [facility] Work Phone: Patient referral [facility] Work Phone: End: 11-05-2025 SPIROMETRY - BASELINE AND POST DILATOR SPIROMETRY - BASELINE AND POST DILATOR PFT Routine NAIK (dyspnea on exertion) Decreased stamina 1 Occurrences starting 10/06/2024 until 11/05/2025 [facility] Work Phone: Comment on above: 1 Occurrences starting 10/06/2024 until 11/05/2025 End: 12-25-2025 SPIROMETRY BASELINE ONLY SPIROMETRY BASELINE ONLY PFT Routine Obstructive lung disease (HCC) 1 Occurrences starting 11/25/2024 until 12/25/2025 [facility] Comment on above: 1 Occurrences starting 11/25/2024 until 12/25/2025 Urine culture [facility] End: 03-26-2024 XR SHOULDER GENERAL 3V OR MORE AP/TRUE AP/OTHER LEFT XR SHOULDER GENERAL 3V OR MORE AP/TRUE AP/OTHER LEFT Radiology Routine Chronic left shoulder pain 1 Occurrences starting 02/25/2023 until 03/26/2024 [facility] Work Phone: Comment on above: 1 Occurrences starting 02/25/2023 until 03/26/2024 XR SHOULDER GENERAL 3V OR MORE AP/TRUE AP/OTHER LEFT XR SHOULDER GENERAL 3V OR MORE AP/TRUE AP/OTHER LEFT Radiology Routine Chronic left shoulder pain 02/25/2023 2:22 PM EDT [facility] Work Phone: [facility] Immunizations Immunization Date Immunization Notes Care Provider [facility] 02-08-2023 influenza (HD-IIV4) vaccine, age 65+ yr, high dose, quadrivalent, PF (FLUZONE HIGH-DOSE) Yvan Rahman MD Work Phone: [facility] 02-08-2023 influenza virus vacc ine, unspecified formulation Zahra Arias PA-C Work Phone: [facility] 02-08-2022 influenza, high-dose , quadrivalent vaccine (FLUZONE HIGH DOSE QUADRIVALENT) Yvan Rahman MD Work Phone: [facility] 02-17-2021 influenza (aIIV4) vaccine, age 65+ yr, quadrivalent, PF (FLUAD QUAD) Yvan Rahman MD Work Phone: [facility] 07-15-2020 pneumococcal polysaccharide vaccine, 23 valent Yvan Rahman MD Work Phone: [facility] 07-06-2020 COVID-19 vaccine, ag e 12+ yr (Personal On Demand-[employer] - PURPLE TOP) Yvan Rahman MD Work Phone: [facility] Work Phone: 03-05-2020 influenza (aIIV4) vaccine, age 65+ yr, quadrivalent, PF (FLUAD QUAD) Yvan Rahman MD Work Phone: [facility] 01-10-2018 tetanus and diphther ia toxoids, adsorbed, preservative free, for adult use (2 Lf of tetanus toxoid and 2 Lf of diphtheria toxoid) Yvan Rahman MD Work Phone: [facility] 01-10-2018 tetanus toxoid, redu dara diphtheria toxoid, and acellular pertussis vaccine, adsorbed Zahra Arias PA-C Work Phone: [facility] 03-16-2015 pneumococcal conjuga te vaccine, 13 valent Yvan Rahman MD Work Phone: [facility] 01-14-2014 pneumococcal polysaccharide vaccine, 23 valent Yvan Rahman MD Work Phone: [facility] Work Phone: 03-06-2007 pneumococcal polysaccharide vaccine, 23 valent Yvan Rahman MD Work Phone: [facility] 03-06-2007 tetanus toxoid, redu dara diphtheria toxoid, and acellular pertussis vaccine, adsorbed Yvan Rahman MD Work Phone: [facility] Payers Date Payer Category Payer Self-pay 2007 Medicare MEDICARE MEDICAR E A AND B [id number] 2007-Present [phone] [place] [address] Medicare [id number] 2007 Medicare [id number] 2007 Medicare [id number] 2006 Private Health Insurance [employer] PPO [id number] 2006-Present [phone] [facility] [id number] [place] [id number] O [id number] 2006 Private Health Insurance [id number] 2006 Private Health Insurance [id number] Unknown [id number] Unknown [id number] Unknown [id number] Unknown [id number] Unknown [id number] Unknown [id number] Unknown [id number] Unknown [id number] Unknown [id number] Unknown [id number] Unknown [id number] Unknown [id number] Unknown [id number] Social History Date Type Detail Facility Start: 06-14-2017 End: 02-08-2022 Tobacco smoking status NHIS Never smoked tobacco [facility] Start: 08-02-2021 End: 01-20-2025 Alcohol intake Current non-drinker of alcohol (finding) [facility] Start: 07-09-2020 History SDOH Alcohol Frequency 1 [facility] Start: 07-09-2020 History SDOH Social Connections Phone 2 [facility] Start: 07-09-2020 History SDOH Social Connections Buddhist 3 [facility] Start: 07-09-2020 History SDOH Physical Activity DPW 0 [facility] Start: 07-09-2020 History SDOH Financial 5 [facility] Start: 07-09-2020 Education 12 [facility] Start: 08-05-2013 End: 02-08-2022 Tobacco Comment Parents and spouse non smokers. [facility] Start: 1940 Sex Assigned At Male [facility] Start: 06-14-2017 End: 02-08-2022 Tobacco use and exposure Smokeless tobacco non-user [facility] Start: 06-06-2021 End: 12-15-2021 Exposure to SARS-CoV-2 (event) Not sure [facility] Start: 08-23-2022 End: 02-25-2023 History of Social function [facility] Work Phone: Start: 08-23-2022 End: 02-25-2023 Tobacco use panel [facility] Work Phone: Start: 04-13-2012 Adult Depression Screening Assessment 0 [facility] Work Phone: Start: 01-18-2021 Gender identity Identifies as male gender (finding) [facility] Start: 01-18-2021 Sexual orientation Heterosexual (finding) [facility] Are you now , , , , never or living with a partner? [facility] How often to you hav e a drink containing alcohol? Never [facility] Do you feel stress - tense, restless, nervous, or anxious, or unable to sleep at night because your mind is troubled all the time - these days [OSQ] Not at all [facility] (I/We) worried wheth er (my/our) food would run out before (I/we) got money to buy more. Never true [facility] In the past 12 month s, was there a time when you were not able to pay the mortgage or rent on time? No [facility] Do you belong to any clubs or organizations such as oriental orthodox groups, unions, fraternal or athletic groups, or school groups? Yes [facility] Do you feel stress - tense, restless, nervous, or anxious, or unable to sleep at night because your mind is troubled all the time - these days [OSQ] Only a little [facility] Start: 07-24-2022 None None [facility] Start: 07-24-2022 Non-smoker Non-smoker [facility] Start: 08-19-2024 End: 08-23-2024 Sex Male (finding) [facility] Goals Date Patient Goal Desired Activity /State Functional Status Date Assessment Result Facility 08-23-2024 Functional status Activity Abili ty With Assist of 1 [facility] Work Phone: 08-23-2024 Functional status Ambulates [facility] Work Phone: 08-27-2014 Are you deaf, or do you have serious difficulty hearing Yes 08/27/2014 9:08 AM EDT Nella Melgoza LPN Yes [facility] 08-27-2014 Are you blind, or do you have serious difficulty seeing, even when wearing glasses No 08/27/2014 9:08 AM EDT Nella Melgoza LPN No [facility] 08-27-2014 Do you have serious difficulty walking or climbing stairs No 08/27/2014 9:08 AM EDT Nella Melgoza LPN No [facility] 08-27-2014 Do you have difficul ty dressing or bathing No 08/27/2014 9:08 AM EDT Nella Melgoza LPN No [facility] 08-27-2014 Because of a physica l, mental, or emotional condition, do you have difficulty doing errands alone such as visiting a physician's office or shopping No 08/27/2014 9:08 AM EDT Nella Melgoza LPN No [facility] Mental Status Date Assessment Result Facility 08-23-2024 Cognitive function Voice/Name [facility] Work Phone: 08-19-2024 Cognitive function Level Of Cons ciousness Awake;Alert;Appropriate;Fol lows Commands [facility] Work Phone: 08-27-2014 Because of a physica l, mental, or emotional condition, do you have serious difficulty concentrating, remembering, or making decisions No 08/27/2014 9:08 AM EDT Melgoza Nella LPN No [facility] Clinical Notes 03-16-2015 to 01-20-2025 Patient InstructionsYvan Rahman MD - 01/20/2025 11:00 AM EDTTelephone Encounter - Ute Marr MA - 12/31/2024 2:43 PM EDTSIona hopson MA - 12/24/2024 1:58 PM EDT Note Date & Type Note Facility 01-20-2025 Instructions Yvan Rahman MD - 01/20/2025 12:05 PM EDT Please get repeat thyroid lab on or after 03/22/2025 Please get labs and urine test done on or after 07/09/2025 prior to your next visit. We discussed your overall health and current treatment plan: - Diabetes Management: - Your A1c has improved significantly to 5.7. This is excellent progress. - We will reduce your metformin dose. Stop taking the metformin at night. Instead, take only Janumet in the morning, as it already contains metformin (1,000 mg). This will reduce your total metformin dose to 1,000 mg daily. - Monitor for any changes in blood sugar levels or symptoms. If your A1c rises above 7, we can revisit this plan. - Thyroid Management: - Your thyroid levels are currently too low. To address this: - Continue taking levothyroxine 175 mcg daily. - On Sundays, take 1.5 tablets of the 175 mcg dose (use a pill cutter to split the tablet). - We will recheck your thyroid levels in 2 months (on or after March 22). Please schedule this lab test. - Heart Health: - You are currently taking metoprolol, which was prescribed to help manage your heart rate and prevent episodes of ventricular tachycardia (V-tach). Continue taking this medication as prescribed. - Your stress test is scheduled for next Saturday. This will help evaluate for any blockages or other heart-related concerns. - Depending on the results of the stress test, your city controller may recommend a repeat Holter monitor in 6 months to 1 year to monitor for V-tach episodes. - Skin Irritation from Tape: - For the areas of irritation on your chest caused by tape: - Wash the affected areas twice daily with soapy water to remove skin and bacteria. - Apply a small amount of Neosporin or triple antibiotic cream to the irritated areas, but leave them open to air. - Once the areas are dry and healed, you can stop the twice-daily washing and cream application. - Magnesium Levels: - Your magnesium levels have improved and are now within the normal range. Continue taking your current magnesium supplement as prescribed. Increasing the dose is not recommended, as it may worsen diarrhea. - Vaccinations: - You declined the flu shot this year due to a prior reaction. - You also declined the COVID-19 vaccine at this time. - General Health: - Your triglycerides are excellent at 90 (well below the target of 150). - Your LDL (bad cholesterol) is low, and your HDL (good cholesterol) is slightly decreased. Increasing physical activity can help raise your HDL levels. - You reported feeling weak and unable to walk long distances. This is better than when you were in the hospital but still not back to normal. Continue to monitor your strength and activity levels. Follow-Up: - Schedule a thyroid lab test in 2 months (on or after March 22). - Continue with your stress test appointment next Saturday. - Contact our office if you experience any new or worsening symptoms, such as dizziness, chest pain, or significant changes in your blood sugar levels. documented in this encounter [facility] 01-20-2025 History of Present illness Narrative Chief Complaint Patient presents with: F/U 6 Month HPI Santos Morel is a 84 year old male who presents here today for a routine follow up. Follows with [facility], Dr. De Leon. Was started on Toprol XL 25 mg once daily due to elevated HR. Is scheduled to have a Stress Test next week. Patient with hx of DM2, HTN, hyperlipidemia, low magnesium, GERD, BPH, post surgical hypothyroidism, papillary thyroid cancer s/p thyroidectomy and those as below. Huy was recently seen by a online trader, who did not recommend a daily inhaler due to the absence of symptoms, but suggested albuterol as needed, which has not been used. He also saw a city controller on 12/23, who ordered a stress test scheduled for next Saturday and prescribed metoprolol. Huy denies experiencing lightheadedness, dizziness, or palpitations since starting metoprolol. He also denies any recent fevers, cervical lymphadenopathy, wheezing, hemoptysis, chest pain, or lower extremity edema. He reports occasional diarrhea but denies hematochezia, heartburn, or changes in heat or cold tolerance. He has not experienced symptoms of hypoglycemia, frequent headaches, seizures, or tremors. Huy reports feeling weak and unable to walk long distances, but notes improvement since his hospitalization for norovirus. He has not received a flu shot this year due to a previous adverse reaction and is hesitant about the COVID-19 vaccine. Recent lab results show an A1c of 5.7, a significant improvement attributed to the addition of Actos and Huy's efforts. Huy is currently taking 2 metformin tablets and Janumet daily. His thyroid function tests show a TSH level below 0.1, despite a recent dosage adjustment of levothyroxine to 175 mcg daily and 2 tablets on Saturday. He is also taking magnesium supplements, with recent levels within the normal range. Past medical history, appointments, medications, allergies reviewed. Previous Medical History PAST MEDICAL HISTORY Diagnosis Date Abnormal CT of liver 07/07/2018 2017: suspected cirrhosis. Saw Dr. Rocha [facility] who felt this was not cirrhosis. Actinic keratosis 03/06/2007 Benign non-nodular prostatic hyperplasia with lower urinary tract symptoms 03/16/2015 History of BPH. takes flomax at home. Voiding without difficulty Plan; - resume flomax 09/29/2013 - voiding Calculus of kidney 02/11/2007 Chronic left shoulder pain 02/25/2023 Contact dermatitis and other eczema, due to unspecified cause 02/11/2007 Bilateral metacarpals, elbow - mild Controlled type 2 diabetes mellitus without complication, without long-term current use of insulin ([facility]) 03/05/2015 Deviated nasal septum 06/15/2009 Diabetic eye exam ([facility]) 08/27/2014 Last done: 02/13/18 No Retinopathy Diverticulosis of large intestine 02/11/2007 Finding on Colonoscopy 2000 Elevated C-reactive protein (CRP) 08/27/2007 Elevated prostate specific antigen (PSA) 03/16/2015 Essential hypertension 03/05/2015 Family history of ischemic heart disease 02/11/2007 Father age 54 [place] Gastroesophageal reflux disease without esophagitis 03/05/2015 History of kidney stones 05/19/2014 Hypomagnesemia 06/30/2019 Internal hemorrhoids without mention of complication Living will in place 08/02/2021 DPA: (Lisa) Lung cancer, upper lobe ([facility]) 08/21/13: Right. NSCLC. Neg EBUS staging of mediastinum. Malignant neoplasm of upper lobe of right lung ([facility]) 03/16/[address] Maria: Adenocarcinoma Stage IB, Refused chemo. Malignant neoplasm of upper lobe of right lung ([facility]) 03/16/2015 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 Maria: Adenocarcinoma Stage IB, Refused chemo. Released (01/07/2019) Mixed hyperlipidemia 03/05/2015 Obstructive lung disease ([facility]) 01/20/[address] Livia Paredes. 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 No signs or symptoms of DVT/PE. The patient is at High risk for VTE. Plan: - KATIE - Encourage continued ambulation . Previous Surgical History PAST SURGICAL HISTORY Procedure Laterality Date CAROTID ULTRASOUND BILATERAL COLONOSCOPY FLX DX W/COLLJ SPEC WHEN PFRMD 2000 Colonoscopy COLONOSCOPY FLX DX W/COLLJ SPEC WHEN PFRMD 11/27/2007 LUNG SURGERY HX Right 2014 Lobectomy PAST SURGICAL HISTORY OF 09/28/2013 Rt upper lung lobectomy for CA RPR 1ST FEM HRNA ANY AGE REDUCIBLE STAPEDECTOMY/STAPEDOTOMY Left Ear STRESS (SPECT) 2004? Treadmill Stress Test, [place] STRESS TEST 07/08/2013 NL Family History FAMILY HISTORY Problem Relation Age of Onset Breast Cancer Mother age 51 Heart Father [place] age 54 Diabetes Sister Heart also Breast Cancer Sister Lung Cancer Sister None Sister None Brother Patient Allergies ALLERGIES Allergen Reactions Penicillins Unknown Not sure he has allergy Current Medications Current Outpatient Medications on File Prior to Visit Medication Sig pravastatin (PRAVACHOL) 40 mg tablet Take 1 tablet by mouth daily at bedtime. tamsulosin (FLOMAX) 0.4 mg Take 1 capsule by mouth two times a day. metoprolol succinate ER (TOPROL XL) 25 mg 24 hr tablet Take 1 tablet by mouth once daily. Per [facility]. metFORMIN ER (GLUCOPHAGE XR) 500 mg 24 hr tablet TAKE 2 TABLETS BY MOUTH ONE TIME DAILY 12 HOURS APART FROM JANUMET levothyroxine (SYNTHROID) 175 mcg tablet Take on tablet daily Mon-Fri and Two on Sat, Sun. losartan (COZAAR) 100 mg tablet Take 1 tablet by mouth once daily. SITagliptin-metFORMIN (JANUMET XR) 100-1,000 mg TM24 Take 1 tablet by mouth once daily. glimepiride (AMARYL) 2 mg tablet Take 1 tablet by mouth two times a day with meals. albuterol HFA (PROVENTIL HFA, VENTOLIN HFA) 90 mcg/actuation inhaler Inhale 2 puffs as instructed every 4 hours as needed. magnesium oxide 200 mg magnesium chew Take 200 mg by mouth two times a day. diphenoxylate-atropine (LOMOTIL) 2.5-0.025 mg per tablet Take 1 tablet by mouth two times a day as needed for diarrhea for up to 180 days. omeprazole (PRILOSEC) 20 mg capsule Take 1 capsule by mouth once daily. Benzonatate 200 mg capsule Take 1 capsule by mouth three times a day as needed. pioglitazone (ACTOS) 30 mg tablet Take 1 tablet by mouth once daily. DUPIXENT PEN 300 mg/2 mL pen Inject 300 mg subcutaneously every [address] Evans Sommer (Patient taking differently: Inject 300 mg subcutaneously every [address] Evans Sommer) Cholecalciferol, Vitamin D3, 50 mcg (2,000 unit) cap Take by mouth once daily. ASPIRIN 81 MG TAB Take one(1) tablet daily. No current facility-administered medications on file prior to visit. Social History SOCIAL HISTORY[1] Review of Symptoms REVIEW OF SYSTEMS GENERAL: No weight loss, malaise or fevers NECK: Negative for lumps, goiter, pain and significant neck swelling RESPIRATORY: Negative for cough, hemoptysis, increased wheezing, COPD, dyspnea or shortness of breath CARDIOVASCULAR: Negative for chest pain, leg swelling, hypertension, CHF or palpitations GI: No nausea, vomiting, or diarrhea, No heartburn or reflux symptoms, and no blood ENDOCRINE: Negative for cold or heat intolerance, polyuria, symptoms of low BS's. NEURO: No history of headaches, syncope, paralysis, seizures or tremors SEE HPI EXAM: BP 124/66 (BP Site: Left Arm, BP Position: Sitting, BP Cuff Size: Regular Adult) Pulse 66 Resp 18 Wt 87.5 kg (193 lb) BMI 27.69 kg/m Last 5 Encounter Wt Readings: Date: Wt: 01/20/2025 87.5 kg (193 lb) 11/25/2024 84.8 kg (187 lb) 10/19/2024 85.3 kg (188 lb) 10/06/2024 84.4 kg (186 lb) 09/02/2024 84.4 kg (186 lb)' General Appearance: Well appearing, alert, in no acute distress, well-hydrated, well nourished. and Overweight. Neck: Supple, no adenopathy; thyroid symmetric, normal size, no bruits. Lungs: Lungs clear to auscultation. No wheezing, rhonchi, rales.. Heart: RRR without murmur, gallop, or rubs. No ectopy. Abdomen: Normal abdominal exam, Abdomen soft, non-tender. Bowel sounds normal. No masses, organomegaly. Extremities: No deformities, edema, skin discoloration,Good capillary refill. . Musculoskeletal: Muscular strength intact, No joint swelling, deformity, or tenderness. Peripheral Pulses: Normal. Neurologic: Gait normal. Sensation grossly intact.. Health Maintenance List RSV Vaccine(1 - 1-dose 75+ series) due on 07/16/2025 Dilated Retinal Exam due on 03/31/2025 Urine Albumin:Creatinine Ratio due on 06/23/2025 HbA1C due on 07/05/2025 Diabetic Foot Exam due on 07/16/2025 Depression Screening due on 07/16/2025 Anxiety Screening due on 07/16/2025 Medicare Annual Wellness Visit due on 07/16/2025 LDL Cholesterol due on 01/02/2026 DTaP,Tdap,Td Vaccine(4 - Td or Tdap) due on 01/11/2028 Advance Directive Discussion Completed Pneumococcal Vaccine: 50+ Completed Influenza Vaccine Discontinued Colorectal Cancer Screening Discontinued Shingrix Vaccine Discontinued Data reviewed Latest Ref Rng 06/23/2024 11/02/2024 01/02/2025 WBC 3.70 - 11.00 k/uL 7.38 RBC 4.20 - 6.00 m/uL 4.95 Hemoglobin 13.0 - 17.0 g/dL 14.1 Hematocrit 39.0 - 51.0 % 42.7 MCV 80.0 - 100.0 fL 86.3 MCH 26.0 - 34.0 pg 28.5 MCHC 30.5 - 36.0 g/dL 33.0 RDW-CV 11.5 - 15.0 % 13.1 Platelet Count 150 - 400 k/uL 168 MPV 9.0 - 12.7 fL 9.8 Neut% % 70.6 Abs Neut (ANC) 1.45 - 7.50 k/uL 5.21 Lymph% % 20.3 Abs Lymph 1.00 - 4.00 k/uL 1.50 [place]amo% % 6.0 Abs [place]amo <0.87 k/uL 0.44 Eosin% % 2.2 Abs Eosin <0.46 k/uL 0.16 Baso% % 0.4 Abs Baso <0.11 k/uL 0.03 Immature Gran % % 0.5 IMMATURE GRANS (ABS) <0.10 k/uL 0.04 NRBC /100 WBC 0.0 Absolute nRBC <0.01 k/uL <0.01 DTYPE Auto Protein, Total 6.3 - 8.0 g/dL 6.5 Albumin 3.9 - 4.9 g/dL 4.2 Calcium 8.5 - 10.2 mg/dL 9.2 Bilirubin, Total 0.2 - 1.3 mg/dL 0.8 Alkaline Phosphatase 38 - 113 U/L 68 AST 14 - 40 U/L 24 ALT 10 - 54 U/L 33 Glucose 74 - 99 mg/dL 282 (H) BUN 9 - 24 mg/dL 20 Creatinine 0.73 - 1.22 mg/dL 1.08 Sodium 136 - 144 mmol/L 140 Potassium 3.7 - 5.1 mmol/L 4.6 Chloride 98 - 107 mmol/L 101 CO2 22 - 30 mmol/L 25 Anion Gap 8 - 15 mmol/L 14 eGFR >=60 mL/min/1.73m 69 Total Cholesterol, Nonfasting <200 mg/dL 103 90 Triglycerides, Nonfasting <150 mg/dL 114 90 HDL Cholesterol, Nonfasting >39 mg/dL 38 (L) 35 (L) LDL Cholesterol Calculated, Nonfasting <100 mg/dL 42 37 Non HDL Cholesterol, Nonfasting <130 mg/dL 65 55 VLDL Cholesterol, Nonfasting <30 mg/dL 23 12 Total Chol/HDL Ratio, Nonfasting <5.10 mg/dL 2.71 2.57 LDL/HDL Ratio, Nonfasting <2.54 mg/dL 1.11 1.06 Hemoglobin A1C 4.3 - 5.6 % 7.4 (H) 5.7 (H) Estimated Average Glucose mg/dL 166 117 PSA <2.60 ng/mL 3.83 (H) PSA, Percent Free % 15 TSH 0.270 - 4.200 mIU/L 2.130 0.146 (L) 0.059 (L) Magnesium 1.7 - 2.3 mg/dL 1.6 (L) 1.7 Legend: (H) High (L) Low Assessment and Plan 1. V-tach (HCC) (I47.20) 2. SVT (supraventricular tachycardia) (HCC) (I47.10) Reviewed [facility] notes from Dr. Hall, who initiated metoprolol due to persistent tachycardia post-hospitalization and ordered a stress test to evaluate for potential blockages contributing to V-tach. - Continue metoprolol as prescribed. - Stress test scheduled for next Saturday. - Discussed rationale for beta-kem therapy to reduce heart rate and potentially decrease V-tach episodes. 3. Controlled type 2 diabetes mellitus without complication, without long-term current use of insulin ([facility]) (E11.9) 4. Diabetic eye exam ([facility]) (Z01.00) A1c improved to 5.7%; recent addition of Actos may have contributed to improvement, but patient efforts also recognized. - Discontinue evening metformin 1000 mg; continue Janumet in the morning. - Refill Actos as requested. - Discussed potential for A1c to rise slightly with medication adjustment and plan to reassess in 6 months. 5. Essential hypertension (I10) Blood pressure well controlled. - Continue current management. 6. Mixed hyperlipidemia (E78.2) Triglycerides at 90, LDL below 50, HDL at 35; advised that increasing physical activity is the only way to raise HDL. - Continue current management. 7. Post-surgical hypothyroidism (E89.0) 8. 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 - Adjust levothyroxine to 175 mcg daily with 1.5 tablets on Saturday. - Repeat thyroid labs in 2 months (on or after March 22). 9. Gastroesophageal reflux disease without esophagitis (K21.9) No current symptoms reported. - Continue current management. 10. Hypomagnesemia (E83.42) Magnesium level improved to within normal range. - Continue current magnesium supplementation as prescribed. 11. Obstructive lung disease ([facility]) (J44.9) Reviewed Pulmonology notes from Dr. Paredes, who recommended albuterol inhaler PRN due to absence of symptoms; no daily inhaler recommended. - Continue albuterol inhaler as needed. 12. Medication management (Z79.969) Reviewed and updated medication regimen as discussed above. - Provided education on medication changes and rationale. 13. Bilateral carotid artery stenosis (I65.23) - clinically stable. cont current meds. Requested Prescriptions Signed Prescriptions Disp Refills pioglitazone (ACTOS) 30 mg tablet 90 tablet 1 Sig: Take 1 tablet by mouth once daily. levothyroxine (SYNTHROID) 175 mcg tablet 114 tablet 1 Sig: Take on tablet daily Mon-Sat and 1.5 on Sun F/u 6 months extensive check CMP, lipid, UA, urine micro albumin, A1c, CBC, TSH, thyroglobulin, B12 and Mg prior. Yvan Rahman MD I spent a total of 42 minutes on the date of the service which included preparing to see the patient, [id number] patient care, completing clinical documentation, performing a medically appropriate examination, counseling and educating the patient/family/caregiver and ordering medications, tests, or procedures. Recording using [employer] software for draft documentation of the visit was discussed with the patient/authorized customer service representative; all questions welcomed and answered. Patient/authorized customer service representative agreed to proceed [1] Social History Tobacco Use Smoking status: Never Smokeless tobacco: Never Tobacco comments: Parents and spouse non smokers. Vaping Use Vaping status: Never Used Substance Use Topics Alcohol use: No Drug use: No documented in this encounter [facility] 01-20-2025 Note HNO ID: [id number] Author: YVAN RAHMAN MD Service: ? Author Type: Physician Type: Progress Notes Filed: 01/21/2025 22:22 Note Text: Chief Complaint Patient presents with: F/U 6 Month HPI Santos Morel is a 84 year old male who presents here today for a routine follow up. Follows with [facility], Dr. De Leon. Was started on Toprol XL 25 mg once daily due to elevated HR. Is scheduled to have a Stress Test next week. Patient with hx of DM2, HTN, hyperlipidemia, low magnesium, GERD, BPH, post surgical hypothyroidism, papillary thyroid cancer s/p thyroidectomy and those as below. Huy was recently seen by a online trader, who did not recommend a daily inhaler due to the absence of symptoms, but suggested albuterol as needed, which has not been used. He also saw a city controller on 12/23, who ordered a stress test scheduled for next Saturday and prescribed metoprolol. Huy denies experiencing lightheadedness, dizziness, or palpitations since starting metoprolol. He also denies any recent fevers, cervical lymphadenopathy, wheezing, hemoptysis, chest pain, or lower extremity edema. He reports occasional diarrhea but denies hematochezia, heartburn, or changes in heat or cold tolerance. He has not experienced symptoms of hypoglycemia, frequent headaches, seizures, or tremors. Huy reports feeling weak and unable to walk long distances, but notes improvement since his hospitalization for norovirus. He has not received a flu shot this year due to a previous adverse reaction and is hesitant about the COVID-19 vaccine. Recent lab results show an A1c of 5.7, a significant improvement attributed to the addition of Actos and Huy's efforts. Huy is currently taking 2 metformin tablets and Janumet daily. His thyroid function tests show a TSH level below 0.1, despite a recent dosage adjustment of levothyroxine to 175 mcg daily and 2 tablets on Saturday. He is also taking magnesium supplements, with recent levels within the normal range. Past medical history, appointments, medications, allergies reviewed. Previous Medical History PAST MEDICAL HISTORY Diagnosis Date Abnormal CT of liver 07/07/2018 2017[facility]. Actinic keratosis 03/06/2007 Benign non-nodular prostatic hyperplasia with lower urinary tract symptoms 03/16/2015 History of BPH. takes flomax at home. Voiding without difficulty Plan; - resume flomax 09/29/2013 - voiding Calculus of kidney 02/11/2007 Chronic left shoulder pain 02/25/2023 Contact dermatitis and other eczema, due to unspecified cause 02/11/2007 Bilateral metacarpals, elbow - mild Controlled type 2 diabetes mellitus without complication, without long-term current use of insulin ([facility]) 03/05/2015 Deviated nasal septum 06/15/2009 Diabetic eye exam ([facility]) 08/27/2014 Last done: 02/13/18 No Retinopathy Diverticulosis of large intestine 02/11/2007 Finding on Colonoscopy 2000 Elevated C-reactive protein (CRP) 08/27/2007 Elevated prostate specific antigen (PSA) 03/16/2015 Essential hypertension 03/05/2015 Family history of ischemic heart disease 02/11/2007 Father age 54 [place] Gastroesophageal reflux disease without esophagitis 03/05/2015 History of kidney stones 05/19/2014 Hypomagnesemia 06/30/2019 Internal hemorrhoids without mention of complication Living will in place 08/02/2021 DPA: (Lisa) Lung cancer, upper lobe (HCC) 08/21/13: Right. NSCLC. Neg EBUS staging of mediastinum. Malignant neoplasm of upper lobe of right lung (HCC) 03/16/[address] Maria: Adenocarcinoma Stage IB, Refused chemo. Malignant neoplasm of upper lobe of right lung (HCC) 03/16/2015 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 Maria: Adenocarcinoma Stage IB, Refused chemo. Released (01/07/2019) Mixed hyperlipidemia 03/05/2015 Obstructive lung disease (HCC) 01/20/[address] Livia Paredes. OVERWEIGHT 03/06/2007 Palpitations 07/10/2013 Post-surgical hypothyroidism 01/20/2021 Primary thyroid papillary carcinoma (HCC) 10/09/2013 Goal to keep TSH between 0.1-0.5 and thyroglobulin less than 5 SVT (supraventricular tachycardia) (HCC) 11/11/2024 Halter 10/2024 Unspecified hearing loss 02/11/2007 Dr. Carrion, [facility], Stapedectomy Upper back pain on left side 03/16/2015 V-tach (HCC) 11/11/2024 Holter 10/2024 VTE Prophylaxis 09/29/2013 The pt was on Lovenox 40mg SC daily and SCD for VTE prophylaxis. No signs or symptoms of DVT/PE. The patient is at High risk for VTE. Plan: - KATIE - Encourage continued ambulation . Previous Surgical History PAST SURGICAL HISTORY Procedure Laterality Date CAROTID ULTRASOUND BILATERAL COLONOSCOPY FLX DX W/COLLJ SPEC WHEN PFRMD 2000 Colonoscopy COLONOSCOPY FLX DX W/COLLJ SPEC WHEN PFRMD 11/27/2007 LUNG SURGERY HX Right 2014 Lobectomy PAST SURGICAL HISTORY OF 09/28/2013 Rt upper lung lobectomy for CA RPR 1ST FEM (more content not included)... [facility] 12-31-2024 Telephone encounter Note The patient has been identified by name and date of : Yes Caregiver verified no other encounters exist for this prescription request: Yes Caregiver confirmed with patient/requestor that no other refills are due, in the near future, with this provider at this time: No The last office visit in the department: 10/06/2024 Does the patient have a future office visit with this provider/department: Yes 12/31/2024 Requested Prescriptions Pending Prescriptions Disp Refills pravastatin (PRAVACHOL) 40 mg tablet 90 tablet 1 Sig: Take 1 tablet by mouth daily at bedtime. tamsulosin (FLOMAX) 0.4 mg 180 capsule 3 Sig: Take 1 capsule by mouth two times a day. Ute Marr MA December 31, 2024 2:43 PM [facility] 12-31-2024 Miscellaneous Notes The patient has been identified by name and date of : Yes Caregiver verified no other encounters exist for this prescription request: Yes Caregiver confirmed with patient/requestor that no other refills are due, in the near future, with this provider at this time: No The last office visit in the department: 10/06/2024 Does the patient have a future office visit with this provider/department: Yes 12/31/2024 Requested Prescriptions Pending Prescriptions Disp Refills pravastatin (PRAVACHOL) 40 mg tablet 90 tablet 1 Sig: Take 1 tablet by mouth daily at bedtime. tamsulosin (FLOMAX) 0.4 mg 180 capsule 3 Sig: Take 1 capsule by mouth two times a day. Ute Marr MA December 31, 2024 2:43 PM documented in this encounter [facility] 12-24-2024 Note HNO ID: [id number] Author: IONA GARCIA MA Service: ? Author Type: Cupola Repairer Type: Progress Notes Filed: 12/24/2024 14:00 Note Text: POPULATION HEALTH NAVIGATION OUTREACH Action/FYI Updated appointment note HCC CLOSURE Topic Due (Y or N) Comments Medicare Wellness PCP Follow up Colorectal Cancer Screening Controlling Blood Pressure A1C HCC y Flu Vaccine Care Everywhere Reviewed MyChart Activation Updated Appointment Note y Reason for Outreach Care Gap/HCC or Scheduling Wellness Visits Care Gaps due: N/A Patient Contacted: Unable or unnecessary to reach patient: HCC related Patient already scheduled Updated appointment notes Navigation Signature: Iona Garcia MA December 24, 2024 1:58 PM [facility] 12-24-2024 History of Present illness Narrative POPULATION HEALTH NAVIGATION OUTREACH Action/FYI Updated appointment note HCC CLOSURE Topic Due (Y or N) Comments Medicare Wellness PCP Follow up Colorectal Cancer Screening Controlling Blood Pressure A1C HCC y Flu Vaccine Care Everywhere Reviewed MyChart Activation Updated Appointment Note y Reason for Outreach Care Gap/HCC or Scheduling Wellness Visits Care Gaps due: N/A Patient Contacted: Unable or unnecessary to reach patient: HCC related Patient already scheduled Updated appointment notes Navigation Signature: Iona Garcia MA December 24, 2024 1:58 PM documented in this encounter [facility] 12-24-2024 Note Patient Outreach (NE TNAV) SANTOS MOREL ([id number]) 1940 M Date Time Provider Department 12/24/24 IONA GARCIA NETNAV During your visit today, we recorded the following information about you: Iona Garcia MA 12/24/2024 2:00 PM Signed POPULATION HEALTH NAVIGATION OUTREACH Action/FYI Updated appointment note HCC CLOSURE Topic Due (Y or N) Comments Medicare Wellness PCP Follow up Colorectal Cancer Screening Controlling Blood Pressure A1C HCC y Flu Vaccine Care Everywhere Reviewed MyChart Activation Updated Appointment Note y Reason for Outreach Care Gap/HCC or Scheduling Wellness Visits Care Gaps due: N/A Patient Contacted: Unable or unnecessary to reach patient: HCC related Patient already scheduled Updated appointment notes Navigation Signature: Iona Garcia MA December 24, 2024 1:58 PM Allergies As of Date: 12/24/2024 Noted Allergy Reaction PENICILLINS 05/27/2006 16 - Unknown Comments: Not sure he has allergy Date Reviewed: 11/25/2024 Reviewed by: Livia Paredes MD - Fully Assessed Reason for Visit: Population Health Navigation Outreach [3910] Cmt: PRADIP MAN PCSA Prescriptions as of 12/24/2024 - metoprolol succinate ER (TOPROL XL) 25 mg 24 hr tablet Take 1 tablet by mouth once daily. Per [facility]. - metFORMIN ER (GLUCOPHAGE XR) 500 mg 24 hr tablet TAKE 2 TABLETS BY MOUTH ONE TIME DAILY 12 HOURS APART FROM MAYUME - levothyroxine (SYNTHROID) 175 mcg tablet Take on tablet daily Mon-Fri and Two on Sat, Sun. - losartan (COZAAR) 100 mg tablet Take 1 tablet by mouth once daily. - SITagliptin-metFORMIN (JANUMET XR) 100-1,000 mg TM24 Take 1 tablet by mouth once daily. - glimepiride (AMARYL) 2 mg tablet Take 1 tablet by mouth two times a day with meals. - albuterol HFA (PROVENTIL HFA, VENTOLIN HFA) 90 mcg/actuation inhaler Inhale 2 puffs as instructed every 4 hours as needed. - magnesium oxide 200 mg magnesium chew Take 200 mg by mouth two times a day. - diphenoxylate-atropine (LOMOTIL) 2.5-0.025 mg per tablet Take 1 tablet by mouth two times a day as needed for diarrhea for up to 180 days. - omeprazole (PRILOSEC) 20 mg capsule Take 1 capsule by mouth once daily. - Benzonatate 200 mg capsule Take 1 capsule by mouth three times a day as needed. - pioglitazone (ACTOS) 30 mg tablet Take 1 tablet by mouth once daily. - pravastatin (PRAVACHOL) 40 mg tablet Take 1 tablet by mouth daily at bedtime. - tamsulosin (FLOMAX) 0.4 mg Take 1 capsule by mouth two times a day. - DUPIXENT PEN 300 mg/2 mL pen Inject 300 mg subcutaneously every [address] Evans Sommer - Cholecalciferol, Vitamin D3, 50 mcg (2,000 unit) cap Take by mouth once daily. - ASPIRIN 81 MG TAB Take one(1) tablet daily. Problem List As Of Date 12/24/2024 Noted Resolved DIABETES MELLITUS TYPE II UNCONTR UNCOMPL [IMO0*02/11/2007 03/03/2007 CALCULUS OF KIDNEY [N20.0] 02/11/2007 02/11/2007 Unspecified hearing loss [H91.90] 02/11/2007 Contact dermatitis and other eczema, due to uns*02/11/2007 Family history of ischemic heart disease [Z82.4*02/11/2007 Diverticulosis of large intestine [K57.30] 02/11/2007 Actinic keratosis [L57.0] 03/06/2007 OVERWEIGHT [E66.9] 03/06/2007 Elevated C-reactive protein (CRP) [R79.82] 08/27/2007 Deviated nasal septum [J34.2] 06/15/2009 Palpitations [R00.2] 07/10/2013 Right VATS upper lobectomy [C34.10] 01/20/2021 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] 10/09/2013 History of kidney stones [Z87.442] 05/19/2014 Diabetic eye exam (HCC) [Z01.00, E11.9] 08/27/2014 Disorder of prostate [N42.9] 08/27/2014 Controlled type 2 diabetes mellitus without com*03/05/2015 Mixed hyperlipidemia [E78.2] 03/05/2015 Essential hypertension [I10] 03/05/2015 Gastroesophageal reflux disease without esophag*03/05/2015 Benign non-nodular prostatic hyperplasia with l*03/16/2015 Upper back pain on left side [M54.9] 03/16/2015 Elevated prostate specific antigen (PSA) [R97.2*03/16/2015 Malignant neoplasm of upper lobe of right lung *03/16/2015 01/20/2021 Medicare annual wellness visit, subsequent [Z00*06/14/[address] of liver [R93.2] 07/07/2018 Hypomagnesemia [E83.42] 06/30/2019 Medication management [Z79.899] 07/05/2020 History of lung cancer [Z85.118] 01/20/2021 Post-surgical hypothyroidism [E89.0] 01/20/[address] [Z78.9] 08/02/2021 Advance directive discussed with patient [Z71.8*08/02/2021 Bilateral carotid artery stenosis [I65.23] 08/23/2022 Chronic left shoulder pain [M25.512, G89.29] 02/25/2023 Reynolds virus [A08.11] 09/17/2024 Sepsis without acute organ dysfunction (HCC) [A*09/17/2024 Post viral debility [R53.81, B94.8] 09/17/2024 Weakness acquired in ICU [R53.1] 09/17/2024 SVT (supraventricular tachycardia) (HCC) [I47.1*11/11/2024 V-tach (HCC) [I47.20] 11/11/2024 Enc (more content not included)... [facility] 12-23-2024 Note Addended by: YVAN RAHMAN on: 12/23/2024 03:07 PM Modules accepted: Orders [facility] 12-23-2024 Miscellaneous Notes Addended by: YVAN RAHMAN on: 12/23/2024 03:07 PM Modules accepted: Orders documented in this encounter [facility] 12-23-2024 Note HNO ID: [id number] Author: MARION MONDRAGON MA Service: ? Author Type: Cupola Repairer Type: Progress Notes Filed: 12/23/2024 14:50 Note Text: Scan on 12/23/2024 11:43 AM by ProviderCherelle PA-C: [facility] 12-23-2024 History of Present illness Narrative Scan on 12/23/2024 11:43 AM by ProviderCherelle PA-C: [facility] documented in this encounter [facility] 12-17-2024 Note HNO ID: [id number] Author: MORRO DURHAM PT Service: ? Author Type: Physical Therapist Type: Progress Notes Filed: 12/17/2024 15:30 Note Text: 12/17/2024 [facility] PHYSICAL THERAPY DISCONTINUANCE OF CARE Plan of Care Period: Start of Care Date: 09/17/24 Last Visit Date: 10/02/2024 Therapy Program: The following is a summary of the interventions provided for this episode of care; Therapeutic exercise, Neuromuscular re-education, and Self-shelter management Assessment: Based on most recent visit, patient was progressing as expected toward functional goals based on documented subjective information. Unable to formally assess goal achievement, as patient has not returned to therapy or scheduled additional follow-up appointments. Reason for Discontinuation of Care: Patient has not returned to therapy or scheduled additional follow-up appointments. Morro Durham, JOYCE [facility] 12-07-2024 Telephone encounter Note The following approved medication requests have been transmitted electronically. Requested Prescriptions Signed Prescriptions Disp Refills metFORMIN ER (GLUCOPHAGE XR) 500 mg 24 hr tablet 180 tablet 1 Sig: TAKE 2 TABLETS BY MOUTH ONE TIME DAILY 12 HOURS APART FROM JANUMET Authorizing Provider: YVAN RAHMAN levothyroxine (SYNTHROID) 175 mcg tablet 114 tablet 1 Sig: Take on tablet daily Mon-Fri and Two on Sat, Sun. Authorizing Provider: YVAN RAHMAN MD [facility] 12-07-2024 Miscellaneous Notes The following approved medication requests have been transmitted electronically. Requested Prescriptions Signed Prescriptions Disp Refills metFORMIN ER (GLUCOPHAGE XR) 500 mg 24 hr tablet 180 tablet 1 Sig: TAKE 2 TABLETS BY MOUTH ONE TIME DAILY 12 HOURS APART FROM JANUMET Authorizing Provider: YVAN RAHMAN levothyroxine (SYNTHROID) 175 mcg tablet 114 tablet 1 Sig: Take on tablet daily Mon-Sat and Two on Sat, Sun. Authorizing Provider: YVAN RAHMAN MD Prescription Refill Information The patient has been identified by name and date of : Yes Caregiver verified no other encounters exist for this prescription request: Yes Caregiver confirmed with patient/requestor that no other refills are due, in the near future, with this provider at this time: Yes The last office visit in the department: 10/06/24 Does the patient have a future office visit with this provider/department: Yes 01/20/25 Requested Prescriptions Pending Prescriptions Disp Refills metFORMIN ER (GLUCOPHAGE XR) 500 mg 24 hr tablet 180 tablet 1 Sig: TAKE 2 TABLETS BY MOUTH ONE TIME DAILY 12 HOURS APART FROM JANUMET levothyroxine (SYNTHROID) 175 mcg tablet Si tablet. Catrina Goins LPN December 07, 2024 3:34 PM documented in this encounter [facility] 12-07-2024 Telephone encounter Note Prescription Refill Information The patient has been identified by name and date of : Yes Caregiver verified no other encounters exist for this prescription request: Yes Caregiver confirmed with patient/requestor that no other refills are due, in the near future, with this provider at this time: Yes The last office visit in the department: 10/06/24 Does the patient have a future office visit with this provider/department: Yes 01/20/25 Requested Prescriptions Pending Prescriptions Disp Refills metFORMIN ER (GLUCOPHAGE XR) 500 mg 24 hr tablet 180 tablet 1 Sig: TAKE 2 TABLETS BY MOUTH ONE TIME DAILY 12 HOURS APART FROM JANUMET levothyroxine (SYNTHROID) 175 mcg tablet Si tablet. Catrina Goins LPN December 07, 2024 3:34 PM [facility] 12-07-2024 Telephone encounter Note Prescription Refill Information The patient has been identified by name and date of : Yes Caregiver verified no other encounters exist for this prescription request: Yes Caregiver confirmed with patient/requestor that no other refills are due, in the near future, with this provider at this time: Yes The last office visit in the department: 10/06/24 Does the patient have a future office visit with this provider/department: Yes Requested Prescriptions Pending Prescriptions Disp Refills losartan (COZAAR) 100 mg tablet 90 tablet 1 Sig: Take 1 tablet by mouth once daily. SITagliptin-metFORMIN (JANUMET XR) 100-1,000 mg TM24 90 tablet 2 Sig: Take 1 tablet by mouth once daily. glimepiride (AMARYL) 2 mg tablet 180 tablet 1 Sig: Take 1 tablet by mouth two times a day with meals. Carlos A Morrison LPN December 07, 2024 7:19 AM [facility] 12-07-2024 Miscellaneous Notes Prescription Refill Information The patient has been identified by name and date of : Yes Caregiver verified no other encounters exist for this prescription request: Yes Caregiver confirmed with patient/requestor that no other refills are due, in the near future, with this provider at this time: Yes The last office visit in the department: 10/06/24 Does the patient have a future office visit with this provider/department: Yes Requested Prescriptions Pending Prescriptions Disp Refills losartan (COZAAR) 100 mg tablet 90 tablet 1 Sig: Take 1 tablet by mouth once daily. SITagliptin-metFORMIN (JANUMET XR) 100-1,000 mg TM24 90 tablet 2 Sig: Take 1 tablet by mouth once daily. glimepiride (AMARYL) 2 mg tablet 180 tablet 1 Sig: Take 1 tablet by mouth two times a day with meals. Carlos A Morrison LPN December 07, 2024 7:19 AM documented in this encounter [facility] 11-25-2024 History of Present illness Narrative Images from the original note were not included. . [facility] [place] Note Patient name: Santos Morel PCP: Yvan Rahman MD Referring Physician: same Recording using [employer] software for draft documentation of the visit was discussed with the patient/authorized customer service representative; all questions welcomed and answered. Patient/authorized customer service representative agreed to proceed CC: abnormal breathing test HPI: Santos Morel 84 year old male never smoker with PMH significant for eczema on Dupixent, DM, HTN, GERD, adenocarcinoma of lung 2014 s/p RUL lobectomy, thyroid cancer with incidental note of positive papillary thyroid cancer on cervical lymph node biopsy performed at the time of his lung surgery, last seen by Dr. Zaman in 2013. Huy reports experiencing dyspnea when walking long distances, such as the 400 feet to his mailbox, but denies dyspnea when climbing stairs or at rest. He denies chronic cough, wheezing, or a history of recurrent bronchitis. He also denies a history of asthma or other respiratory issues during childhood. He is not currently using any inhalers. Huy reports first experiencing dyspnea after hospitalization in August for Reynolds virus. He was hypoxemic during his hospital stay, with oxygen saturation levels in the 80s. He does not recall the hospitalization or being transported by EMS. He does not feel that his dyspnea is limiting but his mention that she witnessed Huy puffing after returning from trips to the mailbox which prompted the order for PFT. DATA: PFT 10/2024: Moderate obstruction but at the upper limit of moderate with improvement in small airways post bronchodilator PFT 2013 from [facility]: Labs: FINAL DIAGNOSIS 1. Cervical nodule, biopsy (A) - Papillary thyroid carcinoma. See comment. 2. Lymph nodes, 4R, 4L, #7, 2R, 2L, 10R, 11R, 9R, 4R, #7, excisions (B-F, H-L) - Benign reactive lymph nodes with anthracosis, negative for neoplasm. 3. Lung, right upper lobe, lobectomy (G) - Invasive adenocarcinoma, acinar-predominant (50%) with papillary (30%) and micropapillary (20%) patterns. - Six (6) peribronchial lymph nodes, negative for neoplasm. - See comment and synoptic report. Imaging / Diagnostic Studies: Reviewed last surveillance chest CT from 2019: Only pertinent for post surgical changes. DATE OF EXAM: Oct 06 2024 10:54AM WOX [id number] - XR CHEST 2V FRONTAL/LAT / CLINICAL HISTORY: Acute cough MQ: XC2_6 EXAM DATE/TIME: 10/06/2024 10:54 AM COMPARISON: 01/12/2020 and 08/28/2024 RESULT: Lines, tubes, and devices: None. Lungs and pleura: Stable postoperative appearance of the chest. Volume loss on the right. No persistent or developing acute abnormality. No pleural fluid or pneumothorax Cardiomediastinal silhouette: Normal cardiomediastinal silhouette. Bones and soft tissues: Unremarkable. Reviewed and unremarkable Chest CT 03/24/14: Chest CT 07/2013: PAST MEDICAL HISTORY Diagnosis Date Abnormal CT of liver 07/07/2018 2017: suspected cirrhosis. Saw Dr. Rocha [facility] who felt this was not cirrhosis. Actinic keratosis 03/06/2007 Benign non-nodular prostatic hyperplasia with lower urinary tract symptoms 03/16/2015 History of BPH. takes flomax at home. Voiding without difficulty Plan; - resume flomax 09/29/2013 - voiding Calculus of kidney 02/11/2007 Contact dermatitis and other eczema, due to unspecified cause 02/11/2007 Bilateral metacarpals, elbow - mild Controlled type 2 diabetes mellitus without complication, without long-term current use of insulin ([facility]) 03/05/2015 Deviated nasal septum 06/15/2009 Diabetic eye exam ([facility]) 08/27/2014 Last done: 02/13/18 No Retinopathy Diverticulosis of large intestine 02/11/2007 Finding on Colonoscopy 2000 Elevated C-reactive protein (CRP) 08/27/2007 Elevated prostate specific antigen (PSA) 03/16/2015 Essential hypertension 03/05/2015 Family history of ischemic heart disease 02/11/2007 Father age 54 [place] Gastroesophageal reflux disease without esophagitis 03/05/2015 History of kidney stones 05/19/2014 Hypomagnesemia 06/30/2019 Internal hemorrhoids without mention of complication Living will in place 08/02/2021 DPA: (Lisa) Lung cancer, upper lobe ([facility]) 08/21/13: Right. NSCLC. Neg EBUS staging of mediastinum. Malignant neoplasm of upper lobe of right lung ([facility]) 03/16/[address] Maria: Adenocarcinoma Stage IB, Refused chemo. Malignant neoplasm of upper lobe of right lung ([facility]) 03/16/2015 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 Maria: Adenocarcinoma Stage IB, Refused chemo. Released (01/07/2019) Mixed hyperlipidemia 03/05/2015 OVERWEIGHT 03/06/2007 Palpitations 07/10/2013 Post-surgical hypothyroidism 01/20/2021 Primary thyroid papillary carcinoma ([facility]) 10/09/2013 Goal to keep TSH between 0.1-0.5 and thyroglobulin less than 5 SVT (supraventricular tachycardia) ([facility]) 11/11/2024 Halter 10/2024 Unspecified hearing loss 02/11/2007 Dr. Carrion, [facility], Stapedectomy Upper back pain on left side 03/16/2015 V-tach ([facility]) 11/11/2024 Holter 10/2024 VTE Prophylaxis 09/29/2013 The pt was on Lovenox 40mg SC daily and SCD for VTE prophylaxis. No signs or symptoms of DVT/PE. The patient is at High risk for VTE. Plan: - KATIE - Encourage continued ambulation . ALLERGIES Allergen Reactions Penicillins Unknown Not sure he has allergy magnesium oxide 200 mg magnesium chew Take 200 mg by mouth two times a day. omeprazole (PRILOSEC) 20 mg capsule Take 1 capsule by mouth once daily. levothyroxine (SYNTHROID) 175 mcg tablet Take 1 tablet by mouth once daily. Sat-Sat and two on Saturday and Saturday pioglitazone (ACTOS) 30 mg tablet Take 1 tablet by mouth once daily. pravastatin (PRAVACHOL) 40 mg tablet Take 1 tablet by mouth daily at bedtime. glimepiride (AMARYL) 2 mg tablet Take 1 tablet by mouth two times a day with meals. metFORMIN ER (GLUCOPHAGE XR) 500 mg 24 hr tablet TAKE 2 TABLETS BY MOUTH ONE TIME DAILY 12 HOURS APART FROM JANUMET SITagliptin-metFORMIN (JANUMET XR) 100-1,000 mg TM24 Take 1 tablet by mouth once daily. tamsulosin (FLOMAX) 0.4 mg Take 1 capsule by mouth two times a day. losartan (COZAAR) 100 mg tablet Take 1 tablet by mouth once daily. DUPIXENT PEN 300 mg/2 mL pen Inject 300 mg subcutaneously every [address] Evans Sommer (Patient taking differently: Inject 300 mg subcutaneously every [address] Evans Sommer) Cholecalciferol, Vitamin D3, 50 mcg (2,000 unit) cap Take by mouth once daily. ASPIRIN 81 MG TAB Take one(1) tablet daily. albuterol HFA (PROVENTIL HFA, VENTOLIN HFA) 90 mcg/actuation inhaler Inhale 2 puffs as instructed every 4 hours as needed. diphenoxylate-atropine (LOMOTIL) 2.5-0.025 mg per tablet Take 1 tablet by mouth two times a day as needed for diarrhea for up to 180 days. Benzonatate 200 mg capsule Take 1 capsule by mouth three times a day as needed. Social History Tobacco Use Smoking status: Never Smokeless tobacco: Never Tobacco comments: Parents and spouse non smokers. Vaping Use Vaping status: Never Used Substance Use Topics Alcohol use: No Drug use: No Pets: None FAMILY HISTORY Problem Relation Age of Onset Breast Cancer Mother age 51 Heart Father [place] age 54 Diabetes Sister Heart also Breast Cancer Sister Lung Cancer Sister None Sister None Brother PAST SURGICAL HISTORY Procedure Laterality Date CAROTID ULTRASOUND BILATERAL COLONOSCOPY FLX DX W/COLLJ SPEC WHEN PFRMD 2000 Colonoscopy COLONOSCOPY FLX DX W/COLLJ SPEC WHEN PFRMD 11/27/2007 LUNG SURGERY HX Right 2014 Lobectomy PAST SURGICAL HISTORY OF 09/28/2013 Rt upper lung lobectomy for CA RPR 1ST FEM HRNA ANY AGE REDUCIBLE STAPEDECTOMY/STAPEDOTOMY Left Ear STRESS (SPECT) 2004? Treadmill Stress Test, [place] STRESS TEST 07/08/2013 NL PMH, Social history, family history and surgical history reviewed and updated in EMR REVIEW OF SYSTEMS: CONSTITUTIONAL: No fevers, chills, nightsweats, unintended weight loss HEENT: Denies nasal congestion/sinus symptoms, allergy problems. EYES: No diplopia or blurry vision. CARDIOVASCULAR: No chest pain, palpitations, orthopnea, PND, edema. VT on Holter PULM: See HPI GI: No dysphagia/odynophagia, problematic reflux. NEURO: No balance problems, peripheral weakness/paresthesias or numbness of concern. MUSC-SKEL: No joint pain, swelling, or erythema. INTEGUMENTARY: Pruritis PHYSICAL EXAMINATION: BP 112/60 Pulse 60 Resp 15 Wt 187 lb (84.8kg) SpO2 95% General Appearance: Age-appropriate male, NAD. Skin: Skin color, texture, turgor normal, no suspicious rashes or lesions. Head: Normocephalic, no masses, lesions, tenderness or abnormalities. Eyes: Sclera, conjunctiva normal. Oropharynx: No oral lesions Neck: No masses or adenopathy. Lungs: Not labored, normal to percussion, no wheezes or crackles. Heart: Regular rate and rhythm, no murmurs. Extremities: Minimal pretibial edema, no clubbing. Assessment/Plan: 1. Obstructive lung disease -Relatively asymptomatic so would not recommend controller inhaler. Albuterol as needed. Prescription sent in to local pharmacy -Clinically history and PFTs consistent with post infectious airways disease. May or may not resolve with time -Repeat spirometry at next visit 2. History of lung cancer -Out more than 5 years so completed surveillance -Never smoker so did not qualify for lung cancer screening Livia Paredes MD [facility] [place] documented in this encounter [facility] 11-25-2024 Note HNO ID: [id number] Author: LIVIA PAREDES MD Service: ? Author Type: Physician Type: Progress Notes Filed: 11/25/2024 15:02 Note Text: . [facility] [place] Note Patient name: Santos Morel PCP: Yvan Rahman MD Referring Physician: same Recording using [employer] software for draft documentation of the visit was discussed with the patient/authorized customer service representative; all questions welcomed and answered. Patient/authorized customer service representative agreed to proceed CC: abnormal breathing test HPI: Santos Morel 84 year old male never smoker with PMH significant for eczema on Dupixent, DM, HTN, GERD, adenocarcinoma of lung 2014 s/p RUL lobectomy, thyroid cancer with incidental note of positive papillary thyroid cancer on cervical lymph node biopsy performed at the time of his lung surgery, last seen by Dr. Zaman in 2013. Huy reports experiencing dyspnea when walking long distances, such as the 400 feet to his mailbox, but denies dyspnea when climbing stairs or at rest. He denies chronic cough, wheezing, or a history of recurrent bronchitis. He also denies a history of asthma or other respiratory issues during childhood. He is not currently using any inhalers. Huy reports first experiencing dyspnea after hospitalization in August for Reynolds virus. He was hypoxemic during his hospital stay, with oxygen saturation levels in the 80s. He does not recall the hospitalization or being transported by EMS. He does not feel that his dyspnea is limiting but his mention that she witnessed Huy puffing after returning from trips to the mailbox which prompted the order for PFT. DATA: PFT 10/2024: Moderate obstruction but at the upper limit of moderate with improvement in small airways post bronchodilator PFT 2013 from [facility]: Labs: FINAL DIAGNOSIS 1. Cervical nodule, biopsy (A) - Papillary thyroid carcinoma. See comment. 2. Lymph nodes, 4R, 4L, #7, 2R, 2L, 10R, 11R, 9R, 4R, #7, excisions (B-F, H-L) - Benign reactive lymph nodes with anthracosis, negative for neoplasm. 3. Lung, right upper lobe, lobectomy (G) - Invasive adenocarcinoma, acinar-predominant (50%) with papillary (30%) and micropapillary (20%) patterns. - Six (6) peribronchial lymph nodes, negative for neoplasm. - See comment and synoptic report. Imaging / Diagnostic Studies: Reviewed last surveillance chest CT from 2019: Only pertinent for post surgical changes. DATE OF EXAM: Oct 06 2024 10:54AM WOX [id number] - XR CHEST 2V FRONTAL/LAT / CLINICAL HISTORY: Acute cough MQ: XC2_6 EXAM DATE/TIME: 10/06/2024 10:54 AM COMPARISON: 01/12/2020 and 08/28/2024 RESULT: Lines, tubes, and devices: None. Lungs and pleura: Stable postoperative appearance of the chest. Volume loss on the right. No persistent or developing acute abnormality. No pleural fluid or pneumothorax Cardiomediastinal silhouette: Normal cardiomediastinal silhouette. Bones and soft tissues: Unremarkable. Reviewed and unremarkable Chest CT 03/24/14: Chest CT 07/2013: PAST MEDICAL HISTORY Diagnosis Date Abnormal CT of liver 07/07/2018 2017: suspected cirrhosis. Saw Dr. Rocha [facility] who felt this was not cirrhosis. Actinic keratosis 03/06/2007 Benign non-nodular prostatic hyperplasia with lower urinary tract symptoms 03/16/2015 History of BPH. takes flomax at home. Voiding without difficulty Plan; - resume flomax 09/29/2013 - voiding Calculus of kidney 02/11/2007 Contact dermatitis and other eczema, due to unspecified cause 02/11/2007 Bilateral metacarpals, elbow - mild Controlled type 2 diabetes mellitus without complication, without long-term current use of insulin ([facility]) 03/05/2015 Deviated nasal septum 06/15/2009 Diabetic eye exam ([facility]) 08/27/2014 Last done: 02/13/18 No Retinopathy Diverticulosis of large intestine 02/11/2007 Finding on Colonoscopy 2000 Elevated C-reactive protein (CRP) 08/27/2007 Elevated prostate specific antigen (PSA) 03/16/2015 Essential hypertension 03/05/2015 Family history of ischemic heart disease 02/11/2007 Father age 54 [place] Gastroesophageal reflux disease without esophagitis 03/05/2015 History of kidney stones 05/19/2014 Hypomagnesemia 06/30/2019 Internal hemorrhoids without mention of complication Living will in place 08/02/2021 DPA: (Lisa) Lung cancer, upper lobe (HCC) 08/21/13: Right. NSCLC. Neg EBUS staging of mediastinum. Malignant neoplasm of upper lobe of right lung (HCC) 03/16/[address] Maria: Adenocarcinoma Stage IB, Refused chemo. Malignant neoplasm of upper lobe of right lung (HCC) 03/16/2015 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 Maria: Adenocarcinoma Stage IB, Refused chemo. Released (01/07/2019) Mixed hyperlipidemia 03/05/2015 OVERWEIGHT 03/06/2007 Palpitations 07/10/2013 Post-surgical hypothyroidism 01/20/2021 Primary thyroid papillary carcinoma (HCC) 10/09/2013 Goal to keep TSH between 0.1-0 (more content not included)... [facility] 11-18-2024 Telephone encounter Note Holter report faxed to [facility] at [phone]. notified via [employer]. Marion Mondragon MA [facility] 11-18-2024 Miscellaneous Notes Holter report faxed to [facility] at [phone]. notified via [employer]. Marion Mondragon MA Attached Holter report results in [employer] message. Advised to update office if not received. Marion Mondragon MA documented in this encounter [facility] 11-18-2024 Telephone encounter Note Attached Holter report results in [employer] message. Advised to update office if not received. Marion Mondragon MA [facility] 11-11-2024 Telephone encounter Note Pt's called and is notified of providers message and instructions. She voices understanding. She is ok with [facility] in [place], she states she knows how to get there. I transferred her through to scheduling to set up appointment with Dr. Nikkie Galindo with [facility] who is an district wire chief. Nargis Haddad RN [facility] 11-11-2024 Miscellaneous Notes Pt's called and is notified of providers message and instructions. She voices understanding. She is ok with [facility] in [place], she states she knows how to get there. I transferred her through to scheduling to set up appointment with Dr. Nikkie Galindo with [facility] who is an district wire chief. Nargis Haddad RN Let patient know I can send him to cardio but he may still end up needed to see Cardio if it's with us in [place] it could be 4-5 months to get in or I can send him to [place] [facility]. There is a Dr. Nikkie Galindo with [facility] who is an district wire chief. Call to spouse and . Reviewed results with them and they are very hesitant on traveling and asking if PCP can advise on a name of a Provider, location. Would a normal Final [employer] Inspector be okay to see starting off. Pt has never seen Cardiology before, ever. Did notify pt that V-Tach is dangerous and can lead to cardiac arrest. Marion Mondragon MA Let patient know his halter monitor shows several runs of rapid heart rate coming from above the lower chambers. This is called SVT: supra ventricular tachycardia. He also had several short runs of V-tach that can be dangerous. I would like for him to se a rhythm specialist called and Electrophysiological specialist in cardiology (EPS). Order placed. Office received pt's fdc holter results. Please review scanned document and advise. Marion Mondragon MA View External Cardiology - Camera Technician Holter Report [ID [id number]] documented in this encounter [facility] 11-11-2024 Telephone encounter Note Let patient know I can send him to cardio but he may still end up needed to see Cardio if it's with us in [place] it could be 4-5 months to get in or I can send him to [place] [facility]. There is a Dr. Nikkie Galindo with [facility] at [facility] in [place] who is an district wire chief. [facility] 11-11-2024 Telephone encounter Note Call to spouse and . Reviewed results with them and they are very hesitant on traveling and asking if PCP can advise on a name of a Provider, location. Would a normal Final Canoe Inspector be okay to see starting off. Pt has never seen Cardiology before, ever. Did notify pt that V-Tach is dangerous and can lead to cardiac arrest. Marion Mondragon MA [facility] 11-11-2024 Telephone encounter Note Let patient know his halter monitor shows several runs of rapid heart rate coming from above the lower chambers. This is called SVT: supra ventricular tachycardia. He also had several short runs of V-tach that can be dangerous. I would like for him to se a rhythm specialist called and Electrophysiological specialist in cardiology (EPS). Order placed. 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 Please review scanned document and advise. Marion Mondragon MA View External Cardiology - Prison Holter Report [ID [id number]] [facility] 11-04-2024 Telephone encounter Note Please see pt message and advise regarding recent results. Pt completed TSH and Magnesium. Marion Mondragon MA [facility] 11-04-2024 Miscellaneous Notes Please see pt message and advise regarding recent results. Pt completed TSH and Magnesium. Marion Mondragon MA documented in this encounter [facility] 10-20-2024 Telephone encounter Note Spouse returns call and results and provider message reviewed with verbalized understanding. Transferred to schedule consult to pulmonology. Clarisa Cottrell RN [facility] 10-20-2024 Miscellaneous Notes Spouse returns call and results and provider message reviewed with verbalized understanding. Transferred to schedule consult to pulmonology. Clarisa Cottrell RN Left message for pt to contact office. Carlos A Morrison LPN Let patient know the Us of his heart was ok. The breathing test dose show evidence of obstruction like COPD. I would like for him to see pulmonary to help with management. Order placed documented in this encounter [facility] 10-20-2024 Telephone encounter Note Left message for pt to contact office. Carlos A Morrison LPN [facility] 10-19-2024 Telephone encounter Note Let patient know the Us of his heart was ok. The breathing test dose show evidence of obstruction like COPD. I would like for him to see pulmonary to help with management. Order placed [facility] 10-16-2024 Telephone encounter Note The following approved medication requests have been transmitted electronically. Requested Prescriptions Signed Prescriptions Disp Refills diphenoxylate-atropine (LOMOTIL) 2.5-0.025 mg per tablet 180 tablet 1 Sig: Take 1 tablet by mouth two times a day as needed for diarrhea for up to 180 days. Authorizing Provider: YVAN RAHMAN MD PDMP website checked and validated. All prescriptions have been APPROPRIATELY filled. No suspicious activity was identified. 10/16/2024 by Yvan Rahman MD [facility] 10-16-2024 Miscellaneous Notes The following approved medication requests have been transmitted electronically. Requested Prescriptions Signed Prescriptions Disp Refills diphenoxylate-atropine (LOMOTIL) 2.5-0.025 mg per tablet 180 tablet 1 Sig: Take 1 tablet by mouth two times a day as needed for diarrhea for up to 180 days. Authorizing Provider: YVAN RAHMAN MD PDMP website checked and validated. All prescriptions have been APPROPRIATELY filled. No suspicious activity was identified. 10/16/2024 by Yvan Rahman MD Patient Comment: Huy takes this two to three days a week to keep the diaharea under control. Prescription Refill Information The patient has been identified by name and date of : Yes Caregiver verified no other encounters exist for this prescription request: Yes Caregiver confirmed with patient/requestor that no other refills are due, in the near future, with this provider at this time: Yes The last office visit in the department: 10/06/24 Does the patient have a future office visit with this provider/department: Yes Requested Prescriptions Pending Prescriptions Disp Refills diphenoxylate-atropine (LOMOTIL) 2.5-0.025 mg per tablet 180 tablet 1 Sig: Take 1 tablet by mouth two times a day as needed for diarrhea for up to 180 days. Carlos A Morrison LPN October 16, 2024 12:55 PM documented in this encounter [facility] 10-16-2024 Telephone encounter Note Patient Comment: Huy takes this two to three days a week to keep the diaharea under control. Prescription Refill Information The patient has been identified by name and date of : Yes Caregiver verified no other encounters exist for this prescription request: Yes Caregiver confirmed with patient/requestor that no other refills are due, in the near future, with this provider at this time: Yes The last office visit in the department: 10/06/24 Does the patient have a future office visit with this provider/department: Yes Requested Prescriptions Pending Prescriptions Disp Refills diphenoxylate-atropine (LOMOTIL) 2.5-0.025 mg per tablet 180 tablet 1 Sig: Take 1 tablet by mouth two times a day as needed for diarrhea for up to 180 days. Carlos A Morrison LPN October 16, 2024 12:55 PM [facility] 10-07-2024 Telephone encounter Note Pt's spouse returned call and given provider's message below, regarding patient. Judy Blair RN [facility] 10-07-2024 Miscellaneous Notes Pt's spouse returned call and given provider's message below, regarding patient. Judy Blair RN Left message for patient to contact office. Fletcher Parks MA L;et patient know repeat chest x-ray showed no acute or persistent issues. Just chronic post surgical changes. documented in this encounter [facility] 10-07-2024 Telephone encounter Note Left message for patient to contact office. Fletcher Parks MA [facility] 10-06-2024 Telephone encounter Note L;et patient know repeat chest x-ray showed no acute or persistent issues. Just chronic post surgical changes. [facility] 10-06-2024 Telephone encounter Note Pt lisa notified and verbalized understanding Tejal Rayo MA [facility] 10-06-2024 Miscellaneous Notes Pt lisa notified and verbalized understanding Tejal Rayo MA Please let patient know their xray is normal. documented in this encounter [facility] 10-06-2024 Telephone encounter Note Please let patient know their xray is normal. [facility] 10-06-2024 Instructions Yvan Rahman MD - 10/06/2024 11:13 AM EDT Patient to do his thyroid and Magnesium lab work on or after 11/02/2024. He is to do his next A1c on or after 11/27/2024 documented in this encounter [facility] 10-06-2024 History of Present illness Narrative Chief Complaint Patient presents with: Follow Up HPI Santos Morel is a 84 year old male who presents here today for follow up on sugars/BP Patient had chest x ray today. notes when he walks to the mail box he is winded at times due to seeing him puffing. thought it may have been due to his Actos so she held it for a week and there was no change. No wheezing with it. She did restart the Actos. His fasting blood sugar today was 124. Lowest has been 114 and highest was 160's. Patient is doing PHYSICAL THERAPY and per doing a lot better. Did not need to come into the appt with the use of a walker or wheel chair like at the f/u in August. No longer having the cough like he had been. No chest pain or heaviness. Does not feel palpitations but he still gets HR's in the upper 90's. Not aware if the HR is higher when he feels more winded. Often has to take a rest to get his breath back if out walking.. Patient denies any orthopnea or nocturnal dyspnea. Feels he is breathing better at night. Office visit 09/02/2024 - hospital follow up Patient was admitted to [facility] on 08/19/2024 and Discharged in 08/23/2024 Viral sepsis secondary to norovirus. Patient was hypoxic upon arrival O2 sat in the 80's, also tachyneic, tachycardic also retaining urine, patient tested and was positive for norovirus. TSH levels elevated so synthroid was decreased to 150 mg daily. indicated that they reduced the Thyroid medication due to high heart rate. His TH was 0.069. with hx of papillary thyroid cancer goal is to keep him between 0.1-0.5 Also given melatonin for sleep. indicated that this is not helping Patent also taking OTC Magnesium Gyl 150 mg once a day. FBS today 245: had a bowel of shredded wheat with sugar Diarrhea has stopped. Appetite is still down and feels. Is getting around with a walker but feels weak and run down. Past medical history, appointments, medications, allergies reviewed. Previous Medical History PAST MEDICAL HISTORY Diagnosis Date Abnormal CT of liver 07/07/2018 2017: suspected cirrhosis. Saw Dr. Rocha [facility] who felt this was not cirrhosis. Actinic keratosis 03/06/2007 Benign non-nodular prostatic hyperplasia with lower urinary tract symptoms 03/16/2015 History of BPH. takes flomax at home. Voiding without difficulty Plan; - resume flomax 09/29/2013 - voiding Calculus of kidney 02/11/2007 Contact dermatitis and other eczema, due to unspecified cause 02/11/2007 Bilateral metacarpals, elbow - mild Controlled type 2 diabetes mellitus without complication, without long-term current use of insulin ([facility]) 03/05/2015 Deviated nasal septum 06/15/2009 Diabetic eye exam ([facility]) 08/27/2014 Last done: 02/13/18 No Retinopathy Diverticulosis of large intestine 02/11/2007 Finding on Colonoscopy 2000 Elevated C-reactive protein (CRP) 08/27/2007 Elevated prostate specific antigen (PSA) 03/16/2015 Essential hypertension 03/05/2015 Family history of ischemic heart disease 02/11/2007 Father age 54 [place] Gastroesophageal reflux disease without esophagitis 03/05/2015 History of kidney stones 05/19/2014 History of lung cancer 01/20/2021 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 Released (01/07/2019) Hypomagnesemia 06/30/2019 Internal hemorrhoids without mention of complication Living will in place 08/02/2021 DPA: (Lisa) Lung cancer, upper lobe (HCC) 08/21/13: Right. NSCLC. Neg EBUS staging of mediastinum. Malignant neoplasm of upper lobe of right lung (HCC) 03/16/[address] Maria: Adenocarcinoma Stage IB, Refused chemo. Malignant neoplasm of upper lobe of right lung (HCC) 03/16/2015 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 Maria: Adenocarcinoma Stage IB, Refused chemo. 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 Carrion, [facility], Stapedectomy Upper back pain on left side 03/16/2015 VTE Prophylaxis 09/29/2013 The pt was on Lovenox 40mg SC daily and SCD for VTE prophylaxis. No signs or symptoms of DVT/PE. The patient is at High risk for VTE. Plan: - KATIE - Encourage continued ambulation . Previous Surgical History PAST SURGICAL HISTORY Procedure Laterality Date CAROTID ULTRASOUND BILATERAL COLONOSCOPY FLX DX W/COLLJ SPEC WHEN PFRMD 2000 Colonoscopy COLONOSCOPY FLX DX W/COLLJ SPEC WHEN PFRMD 11/27/07 PAST SURGICAL HISTORY OF 09/28/2013 Rt upper lung lobectomy for CA RPR 1ST FEM HRNA ANY AGE REDUCIBLE STAPEDECTOMY/STAPEDOTOMY Left Ear STRESS (SPECT) 2004? Treadmill Stress Test, [place] STRESS TEST 07/08/2013 NL Family History FAMILY HISTORY Problem Relation Age of Onset Breast Cancer Mother age 51 Heart Father [place] age 54 Diabetes Sister Heart also Breast Cancer Sister Lung Cancer Sister None Sister None Brother Patient Allergies ALLERGIES Allergen Reactions Penicillins Unknown Not sure he has allergy Current Medications Current Outpatient Medications on File Prior to Visit Medication Sig omeprazole (PRILOSEC) 20 mg capsule Take 1 capsule by mouth once daily. Magnesium Glycinate 100 mg tab Take 1.5 tablets by mouth once daily. Benzonatate 200 mg capsule Take 1 capsule by mouth three times a day as needed. levothyroxine (SYNTHROID) 175 mcg tablet Take 1 tablet by mouth once daily. Sat-Sat and two on Saturday and Saturday pioglitazone (ACTOS) 30 mg tablet Take 1 tablet by mouth once daily. pravastatin (PRAVACHOL) 40 mg tablet Take 1 tablet by mouth daily at bedtime. glimepiride (AMARYL) 2 mg tablet Take 1 tablet by mouth two times a day with meals. metFORMIN ER (GLUCOPHAGE XR) 500 mg 24 hr tablet TAKE 2 TABLETS BY MOUTH ONE TIME DAILY 12 HOURS APART FROM JANUMET SITagliptin-metFORMIN (JANUMET XR) 100-1,000 mg TM24 Take 1 tablet by mouth once daily. tamsulosin (FLOMAX) 0.4 mg Take 1 capsule by mouth two times a day. losartan (COZAAR) 100 mg tablet Take 1 tablet by mouth once daily. diphenoxylate-atropine (LOMOTIL) 2.5-0.025 mg per tablet Take 1 tablet by mouth two times a day as needed for diarrhea for up to 180 days. DUPIXENT PEN 300 mg/2 mL pen Inject 300 mg subcutaneously every [address] Evans Sommer Cholecalciferol, Vitamin D3, 50 mcg (2,000 unit) cap Take by mouth once daily. ASPIRIN 81 MG TAB Take one(1) tablet daily. No current facility-administered medications on file prior to visit. Social History Social History Tobacco Use Smoking status: Never Smokeless tobacco: Never Tobacco comments: Parents and spouse non smokers. Vaping Use Vaping status: Never Used Substance Use Topics Alcohol use: No Drug use: No Review of Symptoms REVIEW OF SYSTEMS SEE HPI EXAM: BP 118/70 Pulse 91 Resp 18 Wt 84.4 kg (186 lb) SpO2 96% BMI 26.50 kg/m Last 6 Encounter Wt Readings: Date: Wt: 10/06/2024 84.4 kg (186 lb) 09/02/2024 84.4 kg (186 lb) 08/28/2024 85 kg (187 lb 6.3 oz) 08/05/2024 88.2 kg (194 lb 6.4 oz) 07/16/2024 88.5 kg (195 lb) 12/18/2023 89.2 kg (196 lb 10.4 oz) General Appearance: Well appearing, alert, in no acute distress, well-hydrated, well nourished.. Neck: Supple, no adenopathy; thyroid symmetric, normal size, no bruits. Lungs: Lungs clear to auscultation. No wheezing, rhonchi, rales.. Heart: RRR without murmur, gallop, or rubs. No ectopy. Abdomen: Normal abdominal exam, Abdomen soft, non-tender. Bowel sounds normal. No masses, organomegaly. Extremities: No deformities, edema, skin discoloration, Good capillary refill. . Health Maintenance List RSV Vaccine(1 - 1-dose 75+ series) due on 07/16/2025 HbA1C due on 11/27/2024 Influenza Vaccine(Season Ended) due on 01/11/2025 Dilated Retinal Exam due on 03/31/2025 Urine Albumin:Creatinine Ratio due on 06/23/2025 LDL Cholesterol due on 06/23/2025 Diabetic Foot Exam due on 07/16/2025 Depression Screening due on 07/16/2025 Anxiety Screening due on 07/16/2025 DTaP,Tdap,Td Vaccine(4 - Td or Tdap) due on 01/11/2028 Advance Directive Discussion Completed Pneumococcal Vaccine: 50+ Completed Colorectal Cancer Screening Discontinued Shingrix Vaccine Discontinued Covid-19 Vaccine Discontinued Data reviewed Assessment and Plan ASSESSMENT/PLAN: 1. Reynolds virus - ICD9: 008.63, ICD10: A08.11 (primary diagnosis) - resolved 2. NAIK (dyspnea on exertion) - ICD9: 786.09, ICD10: R06.09 Check - SPIROMETRY - BASELINE AND POST DILATOR - ECHO - PERFLUTREN LIPID MICROSPHERES 1.1 MG/ML INJECTION IN NS 10 ML - SODIUM CHLORIDE 0.9 % (FLUSH) INJECTION SYRINGE - 30 day event monitor 3. Decreased stamina - ICD9: 780.79, ICD10: R53.83 Check - SPIROMETRY - BASELINE AND POST DILATOR - ECHO - PERFLUTREN LIPID MICROSPHERES 1.1 MG/ML INJECTION IN NS 10 ML - SODIUM CHLORIDE 0.9 % (FLUSH) INJECTION SYRINGE - 30 day event monitor. 4. Abnormal chest x-ray - ICD9: 793.2, ICD10: R93.89 Await repeat x-ray results 5. Palpitations - ICD9: 785.1, ICD10: R00.2 Check - ECHO - PERFLUTREN LIPID MICROSPHERES 1.1 MG/ML INJECTION IN NS 10 ML - SODIUM CHLORIDE 0.9 % (FLUSH) INJECTION SYRINGE - 30 day event monitor If 2D echo shows any hypokinesis or his symptoms of reduced stamina are not improved we will proceed to nuclear stress. I spent a total of 50 minutes on the date of the service which included preparing to see the patient, ismg-dt-daws patient care, completing clinical documentation, performing a medically appropriate examination, counseling and educating the patient/family/caregiver and ordering medications, tests, or procedures. Yvan Rahman MD documented in this encounter [facility] 10-06-2024 Note HNO ID: [id number] Author: YVAN RAHMAN MD Service: ? Author Type: Physician Type: Progress Notes Filed: 10/06/2024 20:40 Note Text: Chief Complaint Patient presents with: Follow Up HPI Santos Morel is a 84 year old male who presents here today for follow up on sugars/BP Patient had chest x ray today. notes when he walks to the mail box he is winded at times due to seeing him puffing. thought it may have been due to his Actos so she held it for a week and there was no change. No wheezing with it. She did restart the Actos. His fasting blood sugar today was 124. Lowest has been 114 and highest was 160's. Patient is doing PHYSICAL THERAPY and per doing a lot better. Did not need to come into the appt with the use of a walker or wheel chair like at the f/u in August. No longer having the cough like he had been. No chest pain or heaviness. Does not feel palpitations but he still gets HR's in the upper 90's. Not aware if the HR is higher when he feels more winded. Often has to take a rest to get his breath back if out walking.. Patient denies any orthopnea or nocturnal dyspnea. Feels he is breathing better at night. Office visit 09/02/2024 - hospital follow up Patient was admitted to [facility] on 08/19/2024 and Discharged in 08/23/2024 Viral sepsis secondary to norovirus. Patient was hypoxic upon arrival O2 sat in the 80's, also tachyneic, tachycardic also retaining urine, patient tested and was positive for norovirus. TSH levels elevated so synthroid was decreased to 150 mg daily. indicated that they reduced the Thyroid medication due to high heart rate. His TH was 0.069. with hx of papillary thyroid cancer goal is to keep him between 0.1-0.5 Also given melatonin for sleep. indicated that this is not helping Patent also taking OTC Magnesium Gyl 150 mg once a day. FBS today 245: had a bowel of shredded wheat with sugar Diarrhea has stopped. Appetite is still down and feels. Is getting around with a walker but feels weak and run down. Past medical history, appointments, medications, allergies reviewed. Previous Medical History PAST MEDICAL HISTORY Diagnosis Date Abnormal CT of liver 07/07/2018 2017: suspected cirrhosis. Saw Dr. Rocha [facility] who felt this was not cirrhosis. Actinic keratosis 03/06/2007 Benign non-nodular prostatic hyperplasia with lower urinary tract symptoms 03/16/2015 History of BPH. takes flomax at home. Voiding without difficulty Plan; - resume flomax 09/29/2013 - voiding Calculus of kidney 02/11/2007 Contact dermatitis and other eczema, due to unspecified cause 02/11/2007 Bilateral metacarpals, elbow - mild Controlled type 2 diabetes mellitus without complication, without long-term current use of insulin ([facility]) 03/05/2015 Deviated nasal septum 06/15/2009 Diabetic eye exam ([facility]) 08/27/2014 Last done: 02/13/18 No Retinopathy Diverticulosis of large intestine 02/11/2007 Finding on Colonoscopy 2000 Elevated C-reactive protein (CRP) 08/27/2007 Elevated prostate specific antigen (PSA) 03/16/2015 Essential hypertension 03/05/2015 Family history of ischemic heart disease 02/11/2007 Father age 54 [place] Gastroesophageal reflux disease without esophagitis 03/05/2015 History of kidney stones 05/19/2014 History of lung cancer 01/20/2021 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 Released (01/07/2019) Hypomagnesemia 06/30/2019 Internal hemorrhoids without mention of complication Living will in place 08/02/2021 DPA: (Lisa) Lung cancer, upper lobe (HCC) 08/21/13: Right. NSCLC. Neg EBUS staging of mediastinum. Malignant neoplasm of upper lobe of right lung (HCC) 03/16/[address] Maria: Adenocarcinoma Stage IB, Refused chemo. Malignant neoplasm of upper lobe of right lung (HCC) 03/16/2015 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 Maria: Adenocarcinoma Stage IB, Refused chemo. 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 Carrion, [facility], Stapedectomy Upper back pain on left side 03/16/2015 VTE Prophylaxis 09/29/2013 The pt was on Lovenox 40mg SC daily and SCD for VTE prophylaxis. No signs or symptoms of DVT/PE. The patient is at High risk for VTE. Plan: - KATIE - Encourage continued ambulation . Previous Surgical History PAST SURGICAL HISTORY Procedure Laterality Date CAROTID ULTRASOUND BILATERAL COLONOSCOPY FLX DX W/COLLJ SPEC WHEN PFRMD 2000 Colonoscopy COLONOSCOPY FLX DX W/COLLJ SPEC WHEN PFRMD 11/27/07 PAST SURGICAL HISTORY OF 09/28/2013 Rt upper lung lobectomy for CA RPR 1ST FEM HRNA ANY AGE REDUCIBLE STAPEDECTOMY/STAPEDOTOMY Left Ear S (more content not included)... [facility] 10-06-2024 History of Present illness Narrative Radiology Service Progress Note PATIENT NAME: Santos Morel DATE OF SERVICE: October 06, 2024 TIME: 10:49 AM PATIENT IDENTITY VERIFICATION COMPLETED USING TWO (2) IDENTIFIERS: Name and Date of confirmed by patient verbally. FALL SCREENING: Has the patient had 2 falls in the last year or 1 fall with injury or currently using an Ambulatory Assistive Device (Walker, Cane, Wheelchair, Crutches, etc.)? No PATIENT GENDER DATA: Assigned male at PATIENT RELEVANT IMPLANT DATA REVIEWED: Yes PATIENT PRESENTS WITH AN IMPLANTABLE OR ATTACHED LOCOMOTIVE FIRER/FIREMAN: No RADIOLOGY DEPARTMENT: General X-ray: Exam(s) Completed: Chest X-Ray PERIPHERAL IV DATA: Not applicable SIGNED BY: Ousmane James RT(R) October 06, 2024 10:49 AM documented in this encounter [facility] 10-06-2024 Note HNO ID: [id number] Author: OUSMANE JAMES RT(Kadie) Service: ? Author Type: Back Office Medical Assistant Type: Progress Notes Filed: 10/06/2024 10:53 Note Text: Radiology Service Progress Note PATIENT NAME: Santos Morel DATE OF SERVICE: October 06, 2024 TIME: 10:49 AM PATIENT IDENTITY VERIFICATION COMPLETED USING TWO (2) IDENTIFIERS: Name and Date of confirmed by patient verbally. FALL SCREENING: Has the patient had 2 falls in the last year or 1 fall with injury or currently using an Ambulatory Assistive Device (Walker, Cane, Wheelchair, Crutches, etc.)? No PATIENT GENDER DATA: Assigned male at PATIENT RELEVANT IMPLANT DATA REVIEWED: Yes PATIENT PRESENTS WITH AN IMPLANTABLE OR ATTACHED LOCOMOTIVE FIRER/FIREMAN: No RADIOLOGY DEPARTMENT: General X-ray: Exam(s) Completed: Chest X-Ray PERIPHERAL IV DATA: Not applicable SIGNED BY: RT Jameel(Kadie) October 06, 2024 10:49 AM [facility] 10-02-2024 Note HNO ID: [id number] Author: MORRO DURHAM PT Service: ? Author Type: Physical Therapist Type: Progress Notes Filed: 10/02/2024 13:41 Note Text: Episode Visit Count: 3 Therapist That Will Accept/Oversee The Plan Of Care: Morro Durham PT. Start of Care Date: 09/17/24 Onset Date: 08/19/24 Plan of Care Certification Date: 09/17/24 Next Certification Due Date: 10/23/24 Patient Identified by Name and Date of : Yes REHABILITATION AND SPORTS THERAPY PHYSICAL THERAPY TREATMENT NOTE ASSESSMENT: Santos Morel tolerated the session with fatigue and expected muscle soreness. He demonstrated improvements in semi-tandem and tandem balancing. The patient will continue to benefit from ongoing skilled physical therapy to progress toward set goals. PLAN FOR NEXT VISIT: Functional Strength, Endurance Training, Balance,. SUBJECTIVE: No new falls. Reports walked [place] some time without issue or SOB. See's Dr. Rahman on Saturday. States HEP completion everyday to every other day. Pain: Pain Pain Level: 0 OBJECTIVE MEASURES WITH LEVEL OF FUNCTION: Increased difficulty during tandem with left foot behind requiring cga. Vitals BP: 135/74 (Starting Visit) Pulse: 93 SpO2: 96 % Intra Assessment 1: (After Sci-Fit) Intra Heart Rate 1: 98 Intra BP 1: 134/73 Intra BP Position 1: Sitting Intra SpO2 1: 98 TREATMENT: Therapeutic Exercise: 1: Sci-Fit: 5 Min, Seat 14, Lvl 5.0 - used for CV endurance. 3: 6-In F BACK: 2x12 each. 4: 6-in Lat BACK: 2x12 each. 5: Leaning Wall Toe Raises: 3x15. 6: *Alt. March: 2x10 each. 7: * Counter MiniSquats: 1x10. Skilled Intervention: Patient was educated in proper exercise technique and purpose for exercises. Reviewed and educated patient on additions/changes for home exercise program as above (*). Skilled judgment was used in selection of appropriate interventions. Provided written instruction for home exercise program to facilitate proper performance and compliance. Correct performance of therapeutic exercises was facilitated with verbal and tactile cuing. Neuromuscular Re-Education: 1: Semi-Tandem, Ground, EO: 4x20 each. 2: Tandem, Ground, EO: 4x15 each. 3: *Increased rest breaks. 4: *Discussed balance strategies. Skilled Intervention: Skilled judgment used to assess appropriate program for balance and coordination activity. Ensured patient safety with use of supervision/cga, and gait belt. Billing Therapeutic Exercise Treatment Minutes: 30 Neuromuscular Re-Education Treatment Minutes: 9 Skilled Treatment Time Minutes (timed and untimed codes): 39 Total Session Time (minutes): 39 Session Start Time : 1300 Session Stop Time : 1339 Morro Durham PT [facility] 09-25-2024 Note HNO ID: [id number] Author: MORRO DURHAM PT Service: ? Author Type: Physical Therapist Type: Progress Notes Filed: 09/25/2024 11:53 Note Text: Episode Visit Count: 2 Therapist That Will Accept/Oversee The Plan Of Care: Morro Durham PT. Start of Care Date: 09/17/24 Onset Date: 08/19/24 Plan of Care Certification Date: 09/17/24 Next Certification Due Date: 10/23/24 Patient Identified by Name and Date of : Yes REHABILITATION AND SPORTS THERAPY PHYSICAL THERAPY TREATMENT NOTE ASSESSMENT: Santos Morel tolerated the session with shortness of breath, fatigue, and expected muscle soreness. He demonstrated a lot of fatigue AND SOB following lateral stepups - 86SpO2 right after completion and 95SpO2 following 1-min.. The patient will continue to benefit from ongoing skilled physical therapy to progress toward set goals. PLAN FOR NEXT VISIT: Functional Strength, Endurance Training, Balance,. SUBJECTIVE: No new falls. Patient reports completing exercises, no twice a day but wanted to start slower. Is compliant on walking program currenty. Walking to the mailbox and back twice daily. Pain: Pain Pain Level: 0 OBJECTIVE MEASURES WITH LEVEL OF FUNCTION: SBA for Stepups. Vitals BP: 112/71 (Start of Visit) Pulse: 98 (Start of Visit.) SpO2: 95 % (Start of Visit.) Intra Assessment 1: (Following Sci-Fit) Intra Heart Rate 1: 103 Intra BP 1: 123/73 Intra BP Position 1: Sitting Intra SpO2 1: 96 Intra Assessment 2: (Following Lateral BACK) Intra Heart Rate 2: 114 Intra BP 2: 128/75 Intra SpO2 2: 88 (Quickly improve to 95% following seated rest) TREATMENT: Therapeutic Exercise: 1: Sci-Fit: 5 Min, Seat 14, Lvl 3.0 - used for CV endurance. 2: STS: 3x12, 5#KB. 3: 6-In F BACK: 1x12 each. 4: 6-in Lat BACK: 1x10 each. 5: *Re-discussed HEP; discussed increasing parameters. 6: *Extra time for vital assessment. Skilled Intervention: Patient was educated in proper exercise technique and purpose for exercises. Skilled judgment was used in selection of appropriate interventions. Correct performance of therapeutic exercises was facilitated with verbal and tactile cuing. Patient education as noted. Billing Therapeutic Exercise Treatment Minutes: 39 Skilled Treatment Time Minutes (timed and untimed codes): 39 Total Session Time (minutes): 39 Session Start Time : 1112 Session Stop Time : 1151 Morro Durham PT [facility] 09-25-2024 History of Present illness Narrative Episode Visit Count: 2 Therapist That Will Accept/Oversee The Plan Of Care: Morro Durham PT. Start of Care Date: 09/17/24 Onset Date: 08/19/24 Plan of Care Certification Date: 09/17/24 Next Certification Due Date: 10/23/24 Patient Identified by Name and Date of : Yes REHABILITATION AND SPORTS THERAPY PHYSICAL THERAPY TREATMENT NOTE ASSESSMENT: Santos Morel tolerated the session with shortness of breath, fatigue, and expected muscle soreness. He demonstrated a lot of fatigue & SOB following lateral stepups - 86SpO2 right after completion and 95SpO2 following 1-min.. The patient will continue to benefit from ongoing skilled physical therapy to progress toward set goals. PLAN FOR NEXT VISIT: Functional Strength, Endurance Training, Balance,. SUBJECTIVE: No new falls. Patient reports completing exercises, no twice a day but wanted to start slower. Is compliant on walking program currenty. Walking to the mailbox and back twice daily. Pain: Pain Pain Level: 0 OBJECTIVE MEASURES WITH LEVEL OF FUNCTION: SBA for Stepups. Vitals BP: 112/71 (Start of Visit) Pulse: 98 (Start of Visit.) SpO2: 95 % (Start of Visit.) Intra Assessment 1: (Following Sci-Fit) Intra Heart Rate 1: 103 Intra BP 1: 123/73 Intra BP Position 1: Sitting Intra SpO2 1: 96 Intra Assessment 2: (Following Lateral BACK) Intra Heart Rate 2: 114 Intra BP 2: 128/75 Intra SpO2 2: 88 (Quickly improve to 95% following seated rest) TREATMENT: Therapeutic Exercise: 1: Sci-Fit: 5 Min, Seat 14, Lvl 3.0 - used for CV endurance. 2: STS: 3x12, 5#KB. 3: 6-In F BACK: 1x12 each. 4: 6-in Lat BACK: 1x10 each. 5: *Re-discussed HEP; discussed increasing parameters. 6: *Extra time for vital assessment. Skilled Intervention: Patient was educated in proper exercise technique and purpose for exercises. Skilled judgment was used in selection of appropriate interventions. Correct performance of therapeutic exercises was facilitated with verbal and tactile cuing. Patient education as noted. Billing Therapeutic Exercise Treatment Minutes: 39 Skilled Treatment Time Minutes (timed and untimed codes): 39 Total Session Time (minutes): 39 Session Start Time : 1112 Session Stop Time : 1151 Morro Durham PT documented in this encounter [facility] 09-24-2024 Telephone encounter Note Prescription Refill Information The patient has been identified by name and date of : Yes Caregiver verified no other encounters exist for this prescription request: Yes Caregiver confirmed with patient/requestor that no other refills are due, in the near future, with this provider at this time: Yes The last office visit in the department: 09/02/24 Does the patient have a future office visit with this provider/department: Yes 10/06/24 Requested Prescriptions Pending Prescriptions Disp Refills omeprazole (PRILOSEC) 20 mg capsule 90 capsule 3 Sig: Take 1 capsule by mouth once daily. Gaye Liao LPN September 24, 2024 2:23 PM [facility] 09-24-2024 Miscellaneous Notes Prescription Refill Information The patient has been identified by name and date of : Yes Caregiver verified no other encounters exist for this prescription request: Yes Caregiver confirmed with patient/requestor that no other refills are due, in the near future, with this provider at this time: Yes The last office visit in the department: 09/02/24 Does the patient have a future office visit with this provider/department: Yes 10/06/24 Requested Prescriptions Pending Prescriptions Disp Refills omeprazole (PRILOSEC) 20 mg capsule 90 capsule 3 Sig: Take 1 capsule by mouth once daily. Gaye Liao LPN September 24, 2024 2:23 PM documented in this encounter [facility] 09-17-2024 History of Present illness Narrative Program_ID:[id number] Access Code: [email or web address] URL: [email or web address] Date: 09-17-2024 Prepared By: Morro Durham Program Notes Exercises - Walking - 1-2 x daily - 7 x weekly - sets - reps - Sit to Stand with Arms Crossed - 2 x daily - 7 x weekly - 2-3 sets - 8-10 reps - Standing Hip Abduction with Counter Support - 2 x daily - 7 x weekly - 2-3 sets - 8-10 reps - Heel Raises with Counter Support - 2 x daily - 7 x weekly - 2 sets - 10-15 reps - Toe Raises with Counter Support - 2 x daily - 7 x weekly - 2 sets - 10-15 reps Images from the original note were not included. Episode Visit Count: 1 Therapist That Will Accept/Oversee The Plan Of Care: Morro Durham PT. Start of Care Date: 09/17/24 Onset Date: 08/19/24 Plan of Care Certification Date: 09/17/24 Next Certification Due Date: 10/23/24 Patient Identified by Name and Date of : Yes REHABILITATION AND SPORTS THERAPY PHYSICAL THERAPY EVALUATION PLAN OF CARE: Assessment: Santos Morel presents with chief complaint of deconditioning, weakness and SOB following hospitalization that interferes with rising from a chair, walking, stair negotiation, walking in the community, heavy exertion, physical activities . The patient presents with impairments in ADL's, balance, gait, independence in exercise, overall function, functional strength, and functional performance testing indicates patient is at risk for falls. PROMIS (Patient-Reported Outcomes Measurement Information System) scores were reviewed and identified as a rehabilitation concern. Prognosis for therapy is Good due to: current objective clinical presentation, good overall health status, good support system/ coping skills . The patient will benefit from skilled therapy services to meet the goals established for this plan of care as noted below. Assessment Fall Risk : Inactive at risk PAST MEDICAL HISTORY Diagnosis Date Abnormal CT of liver 07/07/2018 2017: suspected cirrhosis. Saw Dr. Rocha [facility] who felt this was not cirrhosis. Actinic keratosis 03/06/2007 Benign non-nodular prostatic hyperplasia with lower urinary tract symptoms 03/16/2015 History of BPH. takes flomax at home. Voiding without difficulty Plan; - resume flomax 09/29/2013 - voiding Calculus of kidney 02/11/2007 Contact dermatitis and other eczema, due to unspecified cause 02/11/2007 Bilateral metacarpals, elbow - mild Controlled type 2 diabetes mellitus without complication, without long-term current use of insulin (HCC) 03/05/2015 Deviated nasal septum 06/15/2009 Diabetic eye exam (HCC) 08/27/2014 Last done: 02/13/18 No Retinopathy Diverticulosis of large intestine 02/11/2007 Finding on Colonoscopy 2000 Elevated C-reactive protein (CRP) 08/27/2007 Elevated prostate specific antigen (PSA) 03/16/2015 Essential hypertension 03/05/2015 Family history of ischemic heart disease 02/11/2007 Father age 54 [place] Gastroesophageal reflux disease without esophagitis 03/05/2015 History of kidney stones 05/19/2014 History of lung cancer 01/20/2021 Right upper lobe: Dx 2014: Was Seeing Dr. Maria: Adenocarcinoma Stage IB, Refused chemo. Released (01/07/2019) Hypomagnesemia 06/30/2019 Internal hemorrhoids without mention of complication Living will in place 08/02/2021 DPA: (Lisa) Lung cancer, upper lobe (HCC) 08/21/13: Right. NSCLC. Neg EBUS staging of mediastinum. Malignant neoplasm of upper lobe of right lung (HCC) 03/16/[address] Maria: Adenocarcinoma Stage IB, Refused chemo. Malignant neoplasm of upper lobe of right lung (HCC) 03/16/2015 Dx 2014: Was Seeing Dr. Maria: Adenocarcinoma Stage IB, Refused chemo. 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 Carr[facility], Stapedectomy Upper back pain on left side 03/16/2015 VTE Prophylaxis 09/29/2013 The pt was on Lovenox 40mg SC daily and SCD for VTE prophylaxis. No signs or symptoms of DVT/PE. The patient is at High risk for VTE. Plan: - KATIE - Encourage continued ambulation . Goals for Episode of Care: established 09/17/24 Patient reported outcome of physical function will increase T-score by a minimum 5 points. [place]ff[place] in home exercise program. Increased strength of B Hip Flexors and ABD to 5/5 MMT for improvement in ADL/IADLs Reciprocal stair negotiation without need for use of rails. Improve performance on 4 Stage Balance Test to >5 semi-tandem and tandem to reflect decreased fall risk. Improve score on 30 Second Chair Stand to >11 repetitions to reflect decreased fall risk. Patient will improve 6 minute walk test by >100 feet Improve five time sit to stand by 2.3 seconds to meet MCID and decrease risk of falls Patient will improve Timed Up and Go score by 2.5 seconds to improve safe, functional mobility. Patient Goals: Improve balance; decrease SOB bouts. Time Frame for Goals and Treatment : 10/29/24 Planned Interventions, Frequency, and Duration: Current Frequency: 1x/week Duration: 4 weeks Total Number of Visits Planned: 8 (Advised for twice weekly; patient wants to do 1x/weekly; put in order for 1-2x a week if they change their mind) Planned Treatment Interventions: Therapeutic exercise (07589), Neuromuscular re-education (02481), Manual therapy (64983), Therapeutic activities (84595), Self-shelter management (62000), Patient/Family/Caregiver Education, General Conditioning, Gait Training (23922), Functional training PLAN FOR NEXT VISIT: Sci-Fit for FITZGERALD and CV Exercise; Functional Strengthening; Dynamic and Static Balance. Patient demonstrates good understanding of plan of care and treatment. The above goals and plan of care were discussed and agreed upon by patient/family. SUBJECTIVE: Hospitalization for viral sepsis secondary to norovirus on 08/19/24, discharged to home on 08/23/24. Spent time in ICU. Went home following. And used a FWW for a couple days. Here for Weakness and Debility secondary to hospital admission. Trouble with heavy exertion. Trouble endurance and SOB recently. states shuffling feet recently, thinks it is from neuropathy. No Falls since this episode, however they report 1-2 falls (no injuries, just bumps/bruises). Was struggling with sleep, this was following hospital admission. Prior to episodes, patient was pretty sedentary, no exercise program. takes O2 and HR daily, O2 is usually 89-92%, and HR has been more rapid per report. Patient Goals: Improve balance; decrease SOB bouts. Functional Limitations: rising from a chair, walking, stair negotiation, walking in the community, heavy exertion, physical activities Prior Level of Function: Independent without limitations Relevant History Past Relevant Medical Conditions: Diabetes, Neuropathy, Hypertension, Comments Relevant Medical Conditions Comments: Lung Cancer; Hypothyroidism. See Chart for more Employment: Retired Recreation / Current Exercise: None Home Environment Patient Lives With: Spouse Assistance Available: 24-Hour Home Type: Split Level Entry To Home: Stairs, With Rail (16 Steps from Garage per report.) Laundry: Completes Equipment Owned: Walker- Standard Intake Information: Prescription present Previous Treatment: None Falls Interview: Fall without injury in the last year Falls History # of falls in past year: 2 # of falls resulting in an injury in past year: 0 Pain: Pain Pain Level: 0 PROMIS Scales 09/11/2024 Higher is Better Phys Func - T Score 33 (moderate dysfunction) Phys Func - Percentile 4 Self-Eff Symptom - T Score 38 (Low) Self-Eff Symptom - Percentile 12 T-scores: mean of general population = 50. 5 points is clinically meaningfully difference Percentiles provide an indication of how the patient's score ranks in relation to the general population. Higher percentile rankings indicate better function/quality of life. 50th percentile is the average of the general population and indicates half of respondents had a worse score. OBJECTIVE MEASURES WITH LEVEL OF FUNCTION: Posture / Alignment Posture: Forward head, Rounded shoulders UE and Cervical Strength Strength Tested: Shoulder All R UE Strength: Grossly 5/5 L UE Strength: Grossly 5/5 LE Strength R LE Strength: Grossly 5/5 L LE Strength: Grossly 5/5 R Hip Flexion (L2): 4+/5 R Hip ABduction: 4+/5 L Hip Flexion (L2): 4+/5 L Hip ABduction: 4+/5 Mobility Supine To Sit: Independent Sit To Stand: Independent Gait Weight Bearing Status: FWB Gait: Independent Gait Device: None Gait Deviations: General Deviations General Deviations/Observations: Narrow Base of Support Gait Observation: During 6min walk test: SOB during however did not need break. With fatigue, came more narrow vicente and decreased stance time on LLE. Stairs: SBA: Reciprocal w/o rail ascend and descend however decreased erika with both and decreased stability down. Functional Performance Test Results Assistive Device: Cane, None 30 Second Chair Stand Test: 9 reps 5 Times Sit to Stand Test : 16.01 sec 6 Minute Walk Test (ft): 800 ft 6 Minute Walk Test Gait Speed (calculated): 0.68 m/s Timed Up and Go (sec): 13.15 sec 4 Stage Balance Test Narrow base of support (sec): 10 sec (Eyes Closed.) Semi-tandem base of support (sec): 2.5 sec (R Foot Back.) Tandem base of support (sec): 1 sec (R Foot Back) Single leg stance - right (sec): 0.5 sec Single leg stance - left (sec): 0.5 sec Vitals BP: 106/76 Pulse: 103 SpO2: 94 % Target HRR and HR Max Calculator: Yes Max Heart Rate: 151 Additional Vitals: Yes Intra Assessment 1: Heart Rate Intra 1, BP Intra 1, SpO2 Intra 1 (Post 5xSTS and TUG) Intra Heart Rate 1: 104 Intra BP 1: 117/77 Intra BP Position 1: Sitting Intra SpO2 1: 95 Intra Assessment 2: Heart Rate Intra 2, BP Intra 2, SpO2 Intra 2 (Post 6Min Walk Test) Intra Heart Rate 2: 114 Intra BP 2: 137/77 Intra SpO2 2: 95 Post Assessment: Heart Rate Post, BP Post, SpO2 Post (Post All Exercise) Post Heart Rate: 104 Post BP: 117/77 Education: Education Learning Preferences: Demonstration, Explanation, Printed Materials Barriers: None Learning/educational needs: Home exercise program, Safety, Plan of Care, Health promotion, Gait Training, Body Mechanics, Crutch Training, Lifestyle changes Education Provided: Yes, see treatment interventions for education provided Education Provided To: Patient Education Mode/Type: Demonstration, Explanation/Discussion, Literature/Printed Materials Response to Education/Teach Back: States/Identifies, Requires Review/Additional Education TREATMENT: PT Treatment Interventions: Therapeutic Exercise, Self-Jail Management Evaluation Therapeutic Exercise: 1: Reviewed HEP Exercises. PT provided demonstration and cueing of exercises for proper completion. Pt will need to be continued montinored for proper performance and adherance. 2: Discussed therapy goals, exercise purpose, HEP handout provided. Discussed exam findings, POC, and rehab process. 3: *Spent time discussing and advising for completion of home walking program. Reviewed how to correctly wean in to proper exercise and walking program to tolerance. Was advised to take vitals during. 4: *STS w/ Hands: 2x10. 5: *Calf Raises at counter: x10 6: *Toe Raises at counter: x10 7: *Standing Hip ABD at counter: x10 each. Skilled Intervention: Patient was educated in proper exercise technique and purpose for exercises. Reviewed and educated patient on additions/changes for home exercise program as above (*). Skilled judgment was used in selection of appropriate interventions. Provided written instruction for home exercise program to facilitate proper performance and compliance. Correct performance of therapeutic exercises was facilitated with verbal and tactile cuing. Self-Jail Management: 1: Educated on slowed erika and how this is a risk for falls & safety issue. Discussed fall risk and all normative values for testing completed. 2: Discussed home environment setup and home to decrease fall risk within the home. 3: Discussed and educated on the importance of proper active lifestyle and exercise. 4: Extra time spent collecting & assessing vitals during exam. See chart. Skilled Intervention: Skilled judgment in the selection of proper modification for activity of daily living/home management based on clinical presentation, deficits, and needs. Activity progression based on professional judgement. Billing * Evaluation Low Complexity: 1 Unit Therapeutic Exercise Treatment Minutes: 15 Self-Care/Home Management Treatment Minutes: 15 Skilled Treatment Time Minutes (timed and untimed codes): 50 Total Session Time (minutes): 55 Session Start Time : 1215 Session Stop Time : 1310 Morro Durham PT documented in this encounter [facility] 09-17-2024 Note HNO ID: [id number] Author: MORRO DURHAM PT Service: ? Author Type: Physical Therapist Type: Progress Notes Filed: 09/17/2024 14:01 Note Text: Episode Visit Count: 1 Therapist That Will Accept/Oversee The Plan Of Care: Morro Durham PT. Start of Care Date: 09/17/24 Onset Date: 08/19/24 Plan of Care Certification Date: 09/17/24 Next Certification Due Date: 10/23/24 Patient Identified by Name and Date of : Yes REHABILITATION AND SPORTS THERAPY PHYSICAL THERAPY EVALUATION PLAN OF CARE: Assessment: Santos Morel presents with chief complaint of deconditioning, weakness and SOB following hospitalization that interferes with rising from a chair, walking, stair negotiation, walking in the community, heavy exertion, physical activities . The patient presents with impairments in ADL's, balance, gait, independence in exercise, overall function, functional strength, and functional performance testing indicates patient is at risk for falls. PROMIS? (Patient-Reported Outcomes Measurement Information System) scores were reviewed and identified as a rehabilitation concern. Prognosis for therapy is Good due to: current objective clinical presentation, good overall health status, good support system/ coping skills . The patient will benefit from skilled therapy services to meet the goals established for this plan of care as noted below. Assessment Fall Risk : Inactive at risk PAST MEDICAL HISTORY Diagnosis Date Abnormal CT of liver 07/07/2018 2017: suspected cirrhosis. Saw Dr. Rocha [facility] who felt this was not cirrhosis. Actinic keratosis 03/06/2007 Benign non-nodular prostatic hyperplasia with lower urinary tract symptoms 03/16/2015 History of BPH. takes flomax at home. Voiding without difficulty Plan; - resume flomax 09/29/2013 - voiding Calculus of kidney 02/11/2007 Contact dermatitis and other eczema, due to unspecified cause 02/11/2007 Bilateral metacarpals, elbow - mild Controlled type 2 diabetes mellitus without complication, without long-term current use of insulin ([facility]) 03/05/2015 Deviated nasal septum 06/15/2009 Diabetic eye exam ([facility]) 08/27/2014 Last done: 02/13/18 No Retinopathy Diverticulosis of large intestine 02/11/2007 Finding on Colonoscopy 2000 Elevated C-reactive protein (CRP) 08/27/2007 Elevated prostate specific antigen (PSA) 03/16/2015 Essential hypertension 03/05/2015 Family history of ischemic heart disease 02/11/2007 Father age 54 [place] Gastroesophageal reflux disease without esophagitis 03/05/2015 History of kidney stones 05/19/2014 History of lung cancer 01/20/2021 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 Released (01/07/2019) Hypomagnesemia 06/30/2019 Internal hemorrhoids without mention of complication Living will in place 08/02/2021 DPA: (Lisa) Lung cancer, upper lobe (HCC) 08/21/13: Right. NSCLC. Neg EBUS staging of mediastinum. Malignant neoplasm of upper lobe of right lung (HCC) 03/16/[address] Maria: Adenocarcinoma Stage IB, Refused chemo. Malignant neoplasm of upper lobe of right lung (HCC) 03/16/2015 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 Maria: Adenocarcinoma Stage IB, Refused chemo. 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 Carrion, [facility], Stapedectomy Upper back pain on left side 03/16/2015 VTE Prophylaxis 09/29/2013 The pt was on Lovenox 40mg SC daily and SCD for VTE prophylaxis. No signs or symptoms of DVT/PE. The patient is at High risk for VTE. Plan: - KATIE - Encourage continued ambulation . Goals for Episode of Care: established 09/17/24 Patient reported outcome of physical function will increase T-score by a minimum 5 points. [place] in home exercise program. Increased strength of B Hip Flexors and ABD to 5/5 MMT for improvement in ADL/IADLs Reciprocal stair negotiation without need for use of rails. Improve performance on 4 Stage Balance Test to >5 semi-tandem and tandem to reflect decreased fall risk. Improve score on 30 Second Chair Stand to >11 repetitions to reflect decreased fall risk. Patient will improve 6 minute walk test by >100 feet Improve five time sit to stand by 2.3 seconds to meet MCID and decrease risk of falls Patient will improve Timed Up and Go score by 2.5 seconds to improve safe, functional mobility. Patient Goals: Improve balance; decrease SOB bouts. Time Frame for Goals and Treatment : 10/29/24 Planned Interventions, Frequency, and Duration: Current Frequency: 1x/week Duration: 4 weeks Total Number of Visits Planned: 8 (Advised for twice weekly; patient wants to do 1x/weekly; put in order for 1-2x a week if th (more content not included)... [facility] 09-02-2024 Instructions Yvan Rahman MD - 09/02/2024 12:04 PM EDT Change the synthroid back to 175 mcg and take two on Sundays and one all other days. Get TSH and Magnesium labs on or after 11/02/2024. Get some over the counter Power Aid Zero or Gatorade G2 With the melatonin 3 mg take two 30 min prior to bed for a week and if not any better go to taking 3. If still no improvement send Dr. Rahman a My Chart. Do not use benadryl since it can make it hard to urinate. Don't get the chest x-ray repeated any sooner than 09/25/2024 documented in this encounter [facility] 09-02-2024 History of Present illness Narrative Chief Complaint Patient presents with: Hospital F/U [facility] Santos Morel is a 84 year old male who presents here today for Hospital Discharge Follow up Patient was admitted to [facility] on 08/19/2024 and Discharged in 08/23/2024 Viral sepsis secondary to norovirus. Patient was hypoxic upon arrival O2 sat in the 80's, also tachyneic, tachycardic also retaining urine, patient tested and was positive for norovirus. TSH levels elevated so synthroid was decreased to 150 mg daily. indicated that they reduced the Thyroid medication due to high heart rate. His TH was 0.069. with hx of papillary thyroid cancer goal is to keep him between 0.1-0.5 Also given melatonin for sleep. indicated that this is not helping Patent also taking OTC Magnesium Gyl 150 mg once a day. FBS today 245: had a bowel of shredded wheat with sugar Diarrhea has stopped. Appetite is still down and feels. Is getting around with a walker but feels weak and run down. Past medical history, appointments, medications, allergies reviewed. Previous Medical History PAST MEDICAL HISTORY Diagnosis Date Abnormal CT of liver 07/07/2018 2017: suspected cirrhosis. Saw Dr. Rocha [facility] who felt this was not cirrhosis. Actinic keratosis 03/06/2007 Benign non-nodular prostatic hyperplasia with lower urinary tract symptoms 03/16/2015 History of BPH. takes flomax at home. Voiding without difficulty Plan; - resume flomax 09/29/2013 - voiding Calculus of kidney 02/11/2007 Contact dermatitis and other eczema, due to unspecified cause 02/11/2007 Bilateral metacarpals, elbow - mild Controlled type 2 diabetes mellitus without complication, without long-term current use of insulin ([facility]) 03/05/2015 Deviated nasal septum 06/15/2009 Diabetic eye exam ([facility]) 08/27/2014 Last done: 02/13/18 No Retinopathy Diverticulosis of large intestine 02/11/2007 Finding on Colonoscopy 2000 Elevated C-reactive protein (CRP) 08/27/2007 Elevated prostate specific antigen (PSA) 03/16/2015 Essential hypertension 03/05/2015 Family history of ischemic heart disease 02/11/2007 Father age 54 [place] Gastroesophageal reflux disease without esophagitis 03/05/2015 History of kidney stones 05/19/2014 History of lung cancer 01/20/2021 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 Released (01/07/2019) Hypomagnesemia 06/30/2019 Internal hemorrhoids without mention of complication Living will in place 08/02/2021 DPA: (Lisa) Lung cancer, upper lobe (HCC) 08/21/13: Right. NSCLC. Neg EBUS staging of mediastinum. Malignant neoplasm of upper lobe of right lung (HCC) 03/16/[address] Maria: Adenocarcinoma Stage IB, Refused chemo. Malignant neoplasm of upper lobe of right lung (HCC) 03/16/2015 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 Maria: Adenocarcinoma Stage IB, Refused chemo. 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 Carrion [facility], Stapedectomy Upper back pain on left side 03/16/2015 VTE Prophylaxis 09/29/2013 The pt was on Lovenox 40mg SC daily and SCD for VTE prophylaxis. No signs or symptoms of DVT/PE. The patient is at High risk for VTE. Plan: - KATIE - Encourage continued ambulation . Previous Surgical History PAST SURGICAL HISTORY Procedure Laterality Date CAROTID ULTRASOUND BILATERAL COLONOSCOPY FLX DX W/COLLJ SPEC WHEN PFRMD 2000 Colonoscopy COLONOSCOPY FLX DX W/COLLJ SPEC WHEN PFRMD 11/27/07 PAST SURGICAL HISTORY OF 09/28/2013 Rt upper lung lobectomy for CA RPR 1ST FEM HRNA ANY AGE REDUCIBLE STAPEDECTOMY/STAPEDOTOMY Left Ear STRESS (SPECT) 2004? Treadmill Stress Test, [place] STRESS TEST 07/08/2013 NL Family History FAMILY HISTORY Problem Relation Age of Onset Breast Cancer Mother age 51 Heart Father [place] age 54 Diabetes Sister Heart also Breast Cancer Sister Lung Cancer Sister None Sister None Brother Patient Allergies ALLERGIES Allergen Reactions Penicillins Unknown Not sure he has allergy Current Medications Current Outpatient Medications on File Prior to Visit Medication Sig levothyroxine (SYNTHROID) 175 mcg tablet Take 1 tablet by mouth once daily. Sat-Sat and two on Saturday and Saturday pioglitazone (ACTOS) 30 mg tablet Take 1 tablet by mouth once daily. pravastatin (PRAVACHOL) 40 mg tablet Take 1 tablet by mouth daily at bedtime. glimepiride (AMARYL) 2 mg tablet Take 1 tablet by mouth two times a day with meals. metFORMIN ER (GLUCOPHAGE XR) 500 mg 24 hr tablet TAKE 2 TABLETS BY MOUTH ONE TIME DAILY 12 HOURS APART FROM JANUMET SITagliptin-metFORMIN (JANUMET XR) 100-1,000 mg TM24 Take 1 tablet by mouth once daily. tamsulosin (FLOMAX) 0.4 mg Take 1 capsule by mouth two times a day. losartan (COZAAR) 100 mg tablet Take 1 tablet by mouth once daily. diphenoxylate-atropine (LOMOTIL) 2.5-0.025 mg per tablet Take 1 tablet by mouth two times a day as needed for diarrhea for up to 180 days. omeprazole (PRILOSEC) 20 mg capsule TAKE 1 CAPSULE DAILY DUPIXENT PEN 300 mg/2 mL pen Inject 300 mg subcutaneously every [address] Evans Sommer Cholecalciferol, Vitamin D3, 50 mcg (2,000 unit) cap Take by mouth once daily. ASPIRIN 81 MG TAB Take one(1) tablet daily. No current facility-administered medications on file prior to visit. Social History Social History Tobacco Use Smoking status: Never Smokeless tobacco: Never Tobacco comments: Parents and spouse non smokers. Vaping Use Vaping status: Never Used Substance Use Topics Alcohol use: No Drug use: No Review of Symptoms REVIEW OF SYSTEMS GENERAL: malaise or fevers. Hs lost some weight with the illness and wants to try to keep adding it back on. RESPIRATORY: Negative for hemoptysis. Has a persistent cough. Slight wheezing and shortness of breath at times. CARDIOVASCULAR: Negative for chest pain, leg swelling, hypertension, CHF or palpitations GI: No nausea, vomiting, or diarrhea MUSCULOSKELETAL: feels weak and fatigued. NEURO: No history of headaches, syncope, paralysis, seizures or tremors EXAM: BP 102/62 Pulse 111 Temp 37.1 C (98.8 F) (Right Tympanic) Resp 18 Wt 84.4 kg (186 lb) SpO2 94% BMI 26.50 kg/m Last 5 Encounter Wt Readings: Date: Wt: 09/02/2024 84.4 kg (186 lb) 08/28/2024 85 kg (187 lb 6.3 oz) 08/05/2024 88.2 kg (194 lb 6.4 oz) 07/16/2024 88.5 kg (195 lb) 12/18/2023 89.2 kg (196 lb 10.4 oz) General Appearance: Well appearing, alert, in no acute distress, well-hydrated, well nourished. Seems over all weaker s/p illness. Neck: Supple, no adenopathy; thyroid symmetric, normal size, no bruits. Lungs: Lungs clear to auscultation. No wheezing, rhonchi, rales.. Heart: RRR without murmur, gallop, or rubs. No ectopy. Abdomen: Normal abdominal exam, Abdomen soft, non-tender. Bowel sounds normal. No masses, organomegaly. Extremities: No deformities, edema, skin discoloration, Good capillary refill. . Peripheral Pulses: Normal. Health Maintenance List Influenza Vaccine(1) due on 11/09/2024 RSV Vaccine(1 - 1-dose 75+ series) due on 07/16/2025 HbA1C due on 11/27/2024 Dilated Retinal Exam due on 03/31/2025 Urine Albumin:Creatinine Ratio due on 06/23/2025 LDL Cholesterol due on 06/23/2025 Diabetic Foot Exam due on 07/16/2025 Depression Screening due on 07/16/2025 Anxiety Screening due on 07/16/2025 DTaP,Tdap,Td Vaccine(4 - Td or Tdap) due on 01/11/2028 Advance Directive Discussion Completed Pneumococcal Vaccine: 50+ Completed Colorectal Cancer Screening Discontinued Shingrix Vaccine Discontinued Covid-19 Vaccine Discontinued Data reviewed A/P ASSESSMENT/PLAN: 1. Reynolds virus - ICD9: 008.63, ICD10: A08.11 (primary diagnosis) - resolved. - CONSULT TO PHYSICAL THERAPY 2. Sepsis without acute organ dysfunction, due to unspecified organism (HCC) - ICD9: 038.9, 995.91, ICD10: A41.9 - resolved - advised on getting Power aid Zero or Gatorade G2 to help improve his electrolytes. - CONSULT TO PHYSICAL THERAPY 3. Post viral debility - ICD9: 799.3, ICD10: R53.81, B94.8 - patient woul benefit from for rehab outpt. - CONSULT TO PHYSICAL THERAPY 4. Weakness acquired in ICU - ICD9: 780.79, ICD10: R53.1 - as per #3 - CONSULT TO PHYSICAL THERAPY 5. Primary thyroid papillary carcinoma (HCC) - ICD9: 193, ICD10: C73 Will have him go back on the synthroid 75 mcg two on Sun an one all other days. Repeat TSH on or after 11/02/2024 - THYROID STIMULATING HORMONE 6. Post-surgical hypothyroidism - ICD9: 244.0, ICD10: E89.0 - s per #5 - THYROID STIMULATING HORMONE 7. Hypomagnesemia - ICD9: 275.2, ICD10: E83.42 - patient to continue replacement and repeat Mg leel on 11/02/2024 - MAGNESIUM 8. Abnormal chest x-ray - ICD9: 793.2, ICD10: R93.89 - advised to get repeat chest x-ray on or after 09/25/2024 F/u in month. I spent a total of 46 minutes on the date of the service which included preparing to see the patient, [id number] patient care, completing clinical documentation, performing a medically appropriate examination, counseling and educating the patient/family/caregiver and ordering medications, tests, or procedures. Yvan Rahman MD documented in this encounter [facility] 09-02-2024 Note HNO ID: [id number] Author: YVAN RAHMAN MD Service: ? Author Type: Physician Type: Progress Notes Filed: 09/02/2024 12:46 Note Text: Chief Complaint Patient presents with: Hospital F/U HPI Santos Morel is a 84 year old male who presents here today for Hospital Discharge Follow up Patient was admitted to [facility] on 08/19/2024 and Discharged in 08/23/2024 Viral sepsis secondary to norovirus. Patient was hypoxic upon arrival O2 sat in the 80's, also tachyneic, tachycardic also retaining urine, patient tested and was positive for norovirus. TSH levels elevated so synthroid was decreased to 150 mg daily. indicated that they reduced the Thyroid medication due to high heart rate. His TH was 0.069. with hx of papillary thyroid cancer goal is to keep him between 0.1-0.5 Also given melatonin for sleep. indicated that this is not helping Patent also taking OTC Magnesium Gyl 150 mg once a day. FBS today 245: had a bowel of shredded wheat with sugar Diarrhea has stopped. Appetite is still down and feels. Is getting around with a walker but feels weak and run down. Past medical history, appointments, medications, allergies reviewed. Previous Medical History PAST MEDICAL HISTORY Diagnosis Date Abnormal CT of liver 07/07/2018 2017: suspected cirrhosis. Saw Dr. Rocha [facility] who felt this was not cirrhosis. Actinic keratosis 03/06/2007 Benign non-nodular prostatic hyperplasia with lower urinary tract symptoms 03/16/2015 History of BPH. takes flomax at home. Voiding without difficulty Plan; - resume flomax 09/29/2013 - voiding Calculus of kidney 02/11/2007 Contact dermatitis and other eczema, due to unspecified cause 02/11/2007 Bilateral metacarpals, elbow - mild Controlled type 2 diabetes mellitus without complication, without long-term current use of insulin (HCC) 03/05/2015 Deviated nasal septum 06/15/2009 Diabetic eye exam (HCC) 08/27/2014 Last done: 02/13/18 No Retinopathy Diverticulosis of large intestine 02/11/2007 Finding on Colonoscopy 2000 Elevated C-reactive protein (CRP) 08/27/2007 Elevated prostate specific antigen (PSA) 03/16/2015 Essential hypertension 03/05/2015 Family history of ischemic heart disease 02/11/2007 Father age 54 [place] Gastroesophageal reflux disease without esophagitis 03/05/2015 History of kidney stones 05/19/2014 History of lung cancer 01/20/2021 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 Released (01/07/2019) Hypomagnesemia 06/30/2019 Internal hemorrhoids without mention of complication Living will in place 08/02/2021 DPA: (Lisa) Lung cancer, upper lobe (HCC) 08/21/13: Right. NSCLC. Neg EBUS staging of mediastinum. Malignant neoplasm of upper lobe of right lung (HCC) 03/16/[address] Maria: Adenocarcinoma Stage IB, Refused chemo. Malignant neoplasm of upper lobe of right lung (HCC) 03/16/2015 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 Maria: Adenocarcinoma Stage IB, Refused chemo. 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 Carrion, [facility], Stapedectomy Upper back pain on left side 03/16/2015 VTE Prophylaxis 09/29/2013 The pt was on Lovenox 40mg SC daily and SCD for VTE prophylaxis. No signs or symptoms of DVT/PE. The patient is at High risk for VTE. Plan: - KATIE - Encourage continued ambulation . Previous Surgical History PAST SURGICAL HISTORY Procedure Laterality Date CAROTID ULTRASOUND BILATERAL COLONOSCOPY FLX DX W/COLLJ SPEC WHEN PFRMD 2000 Colonoscopy COLONOSCOPY FLX DX W/COLLJ SPEC WHEN PFRMD 11/27/07 PAST SURGICAL HISTORY OF 09/28/2013 Rt upper lung lobectomy for CA RPR 1ST FEM HRNA ANY AGE REDUCIBLE STAPEDECTOMY/STAPEDOTOMY Left Ear STRESS (SPECT) 2004? Treadmill Stress Test, [place] STRESS TEST 07/08/2013 NL Family History FAMILY HISTORY Problem Relation Age of Onset Breast Cancer Mother age 51 Heart Father [place] age 54 Diabetes Sister Heart also Breast Cancer Sister Lung Cancer Sister None Sister None Brother Patient Allergies ALLERGIES Allergen Reactions Penicillins Unknown Not sure he has allergy Current Medications Current Outpatient Medications on File Prior to Visit Medication Sig levothyroxine (SYNTHROID) 175 mcg tablet Take 1 tablet by mouth once daily. Sat-Sat and two on Saturday and Saturday pioglitazone (ACTOS) 30 mg tablet Take 1 tablet by mouth once daily. pravastatin (PRAVACHOL) 40 mg tablet Take 1 tablet by mouth daily at bedtime. glimepiride (AMARYL) 2 mg tablet Take 1 tablet by mouth two times a day with meals. metFORMIN ER (GLUCOPHAGE XR) 500 mg 24 hr tablet TAKE 2 TABLET (more content not included)... [facility] 08-31-2024 Telephone encounter Note Call placed to patient and spoke to spouse. Notified of below with verbalized understanding. She reports that patient has been deep breathing and coughing and seems to be improving. Patient is scheduled to see Dr. Rahman on Saturday and they will keep that appointment for follow up. Clarisa Cottrell RN [facility] 08-31-2024 Miscellaneous Notes Call placed to patient and spoke to spouse. Notified of below with verbalized understanding. She reports that patient has been deep breathing and coughing and seems to be improving. Patient is scheduled to see Dr. Rahman on Saturday and they will keep that appointment for follow up. Clarisa Cottrell RN Xray does not show clear determination just a darker area in the right lung which is why I want a repeat CXR 1 week later. Patient does not have fever or other signs of infection which is why this may be atelectasis in which case he needs to deep breath and cough to expand his lungs. Patient returned call with close by her, went over results, notes from Willow Maier [employer], they are still confused and not sure what is wrong with him? Asking if he needs antibiotic? is asking for a diagnosis please? Left message for patient to return call to office Tejal Rayo MA Please let patient know his xray shows possible infiltrate vs atelectasis in his right lung. Recommend repeat CXR in 1 week. If patient becomes febrile he should contact PCP or proceed to ER. Also recommend he cough and deep breath 10 times per hour while awake. documented in this encounter [facility] 08-31-2024 Telephone encounter Note Xray does not show clear determination just a darker area in the right lung which is why I want a repeat CXR 1 week later. Patient does not have fever or other signs of infection which is why this may be atelectasis in which case he needs to deep breath and cough to expand his lungs. [facility] 08-28-2024 Telephone encounter Note Patient returned call with close by her, went over results, notes from Willow Maier [employer], they are still confused and not sure what is wrong with him? Asking if he needs antibiotic? is asking for a diagnosis please? [facility] 08-28-2024 Telephone encounter Note Left message for patient to return call to office Tejal Rayo MA [facility] 08-28-2024 Telephone encounter Note Please let patient know his xray shows possible infiltrate vs atelectasis in his right lung. Recommend repeat CXR in 1 week. If patient becomes febrile he should contact PCP or proceed to ER. Also recommend he cough and deep breath 10 times per hour while awake. [facility] 08-28-2024 History of Present illness Narrative Radiology Service Progress Note PATIENT NAME: Santos Morel DATE OF SERVICE: August 28, 2024 TIME: 10:42 AM PATIENT IDENTITY VERIFICATION COMPLETED USING TWO (2) IDENTIFIERS: Name and Date of confirmed by patient verbally. FALL SCREENING: Has the patient had 2 falls in the last year or 1 fall with injury or currently using an Ambulatory Assistive Device (Walker, Cane, Wheelchair, Crutches, etc.)? Yes, Patient High Risk for Falls What interventions were put in place to prevent falls during this visit? Offered Assistance with Transfers/Clothing and Instructed Patient to Remain Seated (Not on Exam Table) Until Exam PATIENT GENDER DATA: Assigned male at PATIENT RELEVANT IMPLANT DATA REVIEWED: Not Applicable PATIENT PRESENTS WITH AN IMPLANTABLE OR ATTACHED LOCOMOTIVE FIRER/FIREMAN: No RADIOLOGY DEPARTMENT: General X-ray: Exam(s) Completed: Chest X-Ray PERIPHERAL IV DATA: Not applicable SIGNED BY: LINETTE Willson) August 28, 2024 10:42 AM documented in this encounter [facility] 08-28-2024 Note HNO ID: [id number] Author: AUGUST CARRION RT(R) Service: Radiology Author Type: Technologist Type: Progress Notes Filed: 08/28/2024 10:51 Note Text: Radiology Service Progress Note PATIENT NAME: Santos oMrel DATE OF SERVICE: August 28, 2024 TIME: 10:42 AM PATIENT IDENTITY VERIFICATION COMPLETED USING TWO (2) IDENTIFIERS: Name and Date of confirmed by patient verbally. FALL SCREENING: Has the patient had 2 falls in the last year or 1 fall with injury or currently using an Ambulatory Assistive Device (Walker, Cane, Wheelchair, Crutches, etc.)? Yes, Patient High Risk for Falls What interventions were put in place to prevent falls during this visit? Offered Assistance with Transfers/Clothing and Instructed Patient to Remain Seated (Not on Exam Table) Until Exam PATIENT GENDER DATA: Assigned male at PATIENT RELEVANT IMPLANT DATA REVIEWED: Not Applicable PATIENT PRESENTS WITH AN IMPLANTABLE OR ATTACHED LOCOMOTIVE FIRER/FIREMAN: No RADIOLOGY DEPARTMENT: General X-ray: Exam(s) Completed: Chest X-Ray PERIPHERAL IV DATA: Not applicable SIGNED BY: RT Demetris(R) August 28, 2024 10:42 AM [facility] 08-28-2024 Instructions Bernice Maier APRN.ALAINA - 08/28/2024 10:16 AM EDT Start melatonin 1-3 mg nightly Start magnesium glycinate 200 mg nightly Add evening dose of metformin back to medication regimen documented in this encounter [facility] 08-28-2024 Note HNO ID: [id number] Author: BERNICE MAIER APRN.ALAINA Service: ? Author Type: Nurse Practitioner Type: Progress Notes Filed: 08/28/2024 14:24 Note Text: Chief Complaint Patient presents with: Hospital F/U HPI Santos Morel is a 84 year old male who presents here today for Above Complaints. Patient presents for hospital follow up for norovirus. Patient was in [facility] for norovirus with sepsis from 08/19 to 08/23. Patient reports he continues to be fatigued and has developed a cough. Denies fever, chills, CP. Reports SOB with exertion. Reports he continues to have weakness and be generally fatigued. Past medical history, appointments, medications, allergies reviewed. Previous Medical History PAST MEDICAL HISTORY Diagnosis Date Abnormal CT of liver 07/07/2018 2017: suspected cirrhosis. Saw Dr. Rocha [facility] who felt this was not cirrhosis. Actinic keratosis 03/06/2007 Benign non-nodular prostatic hyperplasia with lower urinary tract symptoms 03/16/2015 History of BPH. takes flomax at home. Voiding without difficulty Plan; - resume flomax 09/29/2013 - voiding Calculus of kidney 02/11/2007 Contact dermatitis and other eczema, due to unspecified cause 02/11/2007 Bilateral metacarpals, elbow - mild Controlled type 2 diabetes mellitus without complication, without long-term current use of insulin ([facility]) 03/05/2015 Deviated nasal septum 06/15/2009 Diabetic eye exam (FORM[facility]LY [facility]) 08/27/2014 Last done: 02/13/18 No Retinopathy Diverticulosis of large intestine 02/11/2007 Finding on Colonoscopy 2000 Elevated C-reactive protein (CRP) 08/27/2007 Elevated prostate specific antigen (PSA) 03/16/2015 Essential hypertension 03/05/2015 Family history of ischemic heart disease 02/11/2007 Father age 54 [place] Gastroesophageal reflux disease without esophagitis 03/05/2015 History of kidney stones 05/19/2014 History of lung cancer 01/20/2021 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 Released (01/07/2019) Hypomagnesemia 06/30/2019 Internal hemorrhoids without mention of complication Living will in place 08/02/2021 DPA: (Lisa) Lung cancer, upper lobe (HCC) 08/21/13: Right. NSCLC. Neg EBUS staging of mediastinum. Malignant neoplasm of upper lobe of right lung (HCC) 03/16/[address] Maria: Adenocarcinoma Stage IB, Refused chemo. Malignant neoplasm of upper lobe of right lung (HCC) 03/16/2015 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 Maria: Adenocarcinoma Stage IB, Refused chemo. 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 Carrion, [facility], Stapedectomy Upper back pain on left side 03/16/2015 VTE Prophylaxis 09/29/2013 The pt was on Lovenox 40mg SC daily and SCD for VTE prophylaxis. No signs or symptoms of DVT/PE. The patient is at High risk for VTE. Plan: - KATIE - Encourage continued ambulation . Previous Surgical History PAST SURGICAL HISTORY Procedure Laterality Date CAROTID ULTRASOUND BILATERAL COLONOSCOPY FLX DX W/COLLJ SPEC WHEN PFRMD 2000 Colonoscopy COLONOSCOPY FLX DX W/COLLJ SPEC WHEN PFRMD 11/27/07 PAST SURGICAL HISTORY OF 09/28/2013 Rt upper lung lobectomy for CA RPR 1ST FEM HRNA ANY AGE REDUCIBLE STAPEDECTOMY/STAPEDOTOMY Left Ear STRESS (SPECT) 2004? Treadmill Stress Test, [place] STRESS TEST 07/08/2013 NL Family History FAMILY HISTORY Problem Relation Age of Onset Breast Cancer Mother age 51 Heart Father [place] age 54 Diabetes Sister Heart also Breast Cancer Sister Lung Cancer Sister None Sister None Brother Patient Allergies ALLERGIES Allergen Reactions Penicillins Unknown Not sure he has allergy Current Medications Current Outpatient Medications on File Prior to Visit Medication Sig levothyroxine (SYNTHROID) 175 mcg tablet Take 1 tablet by mouth once daily. Sat-Sat and two on Saturday and Saturday pioglitazone (ACTOS) 30 mg tablet Take 1 tablet by mouth once daily. pravastatin (PRAVACHOL) 40 mg tablet Take 1 tablet by mouth daily at bedtime. glimepiride (AMARYL) 2 mg tablet Take 1 tablet by mouth two times a day with meals. metFORMIN ER (GLUCOPHAGE XR) 500 mg 24 hr tablet TAKE 2 TABLETS BY MOUTH ONE TIME DAILY 12 HOURS APART FROM JANUMET SITagliptin-metFORMIN (JANUMET XR) 100-1,000 mg TM24 Take 1 tablet by mouth once daily. tamsulosin (FLOMAX) 0.4 mg Take 1 capsule by mouth two times a day. losartan (COZAAR) 100 mg tablet Take 1 tablet by mouth once daily. diphenoxylate-atropine (LOMOTIL) 2.5-0.025 mg per tablet Take 1 tablet by mouth two times a day as needed for diarrhea for up to 180 days. omeprazole (PRILOSEC) 20 mg capsule TAKE 1 CAPSULE DAILY DUPIXENT (more content not included)... [facility] 08-28-2024 History of Present illness Narrative Chief Complaint Patient presents with: Hospital F/U HPI Santos Morel is a 84 year old male who presents here today for Above Complaints. Patient presents for hospital follow up for norovirus. Patient was in [facility] for norovirus with sepsis from 08/19 to 08/23. Patient reports he continues to be fatigued and has developed a cough. Denies fever, chills, CP. Reports SOB with exertion. Reports he continues to have weakness and be generally fatigued. Past medical history, appointments, medications, allergies reviewed. Previous Medical History PAST MEDICAL HISTORY Diagnosis Date Abnormal CT of liver 07/07/2018 2017: suspected cirrhosis. Saw Dr. Rocha [facility] who felt this was not cirrhosis. Actinic keratosis 03/06/2007 Benign non-nodular prostatic hyperplasia with lower urinary tract symptoms 03/16/2015 History of BPH. takes flomax at home. Voiding without difficulty Plan; - resume flomax 09/29/2013 - voiding Calculus of kidney 02/11/2007 Contact dermatitis and other eczema, due to unspecified cause 02/11/2007 Bilateral metacarpals, elbow - mild Controlled type 2 diabetes mellitus without complication, without long-term current use of insulin ([facility]) 03/05/2015 Deviated nasal septum 06/15/2009 Diabetic eye exam (FORMERLY [facility]) 08/27/2014 Last done: 02/13/18 No Retinopathy Diverticulosis of large intestine 02/11/2007 Finding on Colonoscopy 2000 Elevated C-reactive protein (CRP) 08/27/2007 Elevated prostate specific antigen (PSA) 03/16/2015 Essential hypertension 03/05/2015 Family history of ischemic heart disease 02/11/2007 Father age 54 [place] Gastroesophageal reflux disease without esophagitis 03/05/2015 History of kidney stones 05/19/2014 History of lung cancer 01/20/2021 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 Released (01/07/2019) Hypomagnesemia 06/30/2019 Internal hemorrhoids without mention of complication Living will in place 08/02/2021 DPA: (Lisa) Lung cancer, upper lobe (HCC) 08/21/13: Right. NSCLC. Neg EBUS staging of mediastinum. Malignant neoplasm of upper lobe of right lung (HCC) 03/16/[address] Maria: Adenocarcinoma Stage IB, Refused chemo. Malignant neoplasm of upper lobe of right lung (HCC) 03/16/2015 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 Maria: Adenocarcinoma Stage IB, Refused chemo. 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 Carrion, [facility], Stapedectomy Upper back pain on left side 03/16/2015 VTE Prophylaxis 09/29/2013 The pt was on Lovenox 40mg SC daily and SCD for VTE prophylaxis. No signs or symptoms of DVT/PE. The patient is at High risk for VTE. Plan: - KATIE - Encourage continued ambulation . Previous Surgical History PAST SURGICAL HISTORY Procedure Laterality Date CAROTID ULTRASOUND BILATERAL COLONOSCOPY FLX DX W/COLLJ SPEC WHEN PFRMD 2000 Colonoscopy COLONOSCOPY FLX DX W/COLLJ SPEC WHEN PFRMD 11/27/07 PAST SURGICAL HISTORY OF 09/28/2013 Rt upper lung lobectomy for CA RPR FEM HRNA ANY AGE REDUCIBLE STAPEDECTOMY/STAPEDOTOMY Left Ear STRESS (SPECT) 2004? Treadmill Stress Test, [place] STRESS TEST 07/08/2013 NL Family History FAMILY HISTORY Problem Relation Age of Onset Breast Cancer Mother age 51 Heart Father [place] age 54 Diabetes Sister Heart also Breast Cancer Sister Lung Cancer Sister None Sister None Brother Patient Allergies ALLERGIES Allergen Reactions Penicillins Unknown Not sure he has allergy Current Medications Current Outpatient Medications on File Prior to Visit Medication Sig levothyroxine (SYNTHROID) 175 mcg tablet Take 1 tablet by mouth once daily. Sat-Sat and two on Saturday and Saturday pioglitazone (ACTOS) 30 mg tablet Take 1 tablet by mouth once daily. pravastatin (PRAVACHOL) 40 mg tablet Take 1 tablet by mouth daily at bedtime. glimepiride (AMARYL) 2 mg tablet Take 1 tablet by mouth two times a day with meals. metFORMIN ER (GLUCOPHAGE XR) 500 mg 24 hr tablet TAKE 2 TABLETS BY MOUTH ONE TIME DAILY 12 HOURS APART FROM JANUMET SITagliptin-metFORMIN (JANUMET XR) 100-1,000 mg TM24 Take 1 tablet by mouth once daily. tamsulosin (FLOMAX) 0.4 mg Take 1 capsule by mouth two times a day. losartan (COZAAR) 100 mg tablet Take 1 tablet by mouth once daily. diphenoxylate-atropine (LOMOTIL) 2.5-0.025 mg per tablet Take 1 tablet by mouth two times a day as needed for diarrhea for up to 180 days. omeprazole (PRILOSEC) 20 mg capsule TAKE 1 CAPSULE DAILY DUPIXENT PEN 300 mg/2 mL pen Inject 300 mg subcutaneously every [address] Evans Sommer Cholecalciferol, Vitamin D3, 50 mcg (2,000 unit) cap Take by mouth once daily. ASPIRIN 81 MG TAB Take one(1) tablet daily. No current facility-administered medications on file prior to visit. Social History Social History Tobacco Use Smoking status: Never Smokeless tobacco: Never Tobacco comments: Parents and spouse non smokers. Vaping Use Vaping status: Never Used Substance Use Topics Alcohol use: No Drug use: No Review of Symptoms REVIEW OF SYSTEMS SEE HPI EXAM: BP 123/74 Pulse 103 Wt 85 kg (187 lb 6.3 oz) BMI 26.70 kg/m General Appearance: Well appearing, alert, in no acute distress, well-hydrated, well nourished. Lungs: Negative findings: normal respiratory rate and rhythm and chest symmetric with normal A/P diameter Positive findings: wheezing Shortness of breath: Upon exertion Cough. Heart: RRR without murmur, gallop, or rubs. No ectopy. Abdomen: Normal abdominal exam, Abdomen soft, non-tender. Bowel sounds normal. No masses, organomegaly. Peripheral Pulses: Normal. Health Maintenance List Influenza Vaccine(1) due on 11/09/2024 RSV Vaccine(1 - 1-dose 75+ series) due on 07/16/2025 HbA1C due on 12/21/2024 Dilated Retinal Exam due on 03/31/2025 Urine Albumin:Creatinine Ratio due on 06/23/2025 LDL Cholesterol due on 06/23/2025 Diabetic Foot Exam due on 07/16/2025 Depression Screening due on 07/16/2025 Anxiety Screening due on 07/16/2025 DTaP,Tdap,Td Vaccine(4 - Td or Tdap) due on 01/11/2028 Advance Directive Discussion Completed Pneumococcal Vaccine: 50+ Completed Colorectal Cancer Screening Discontinued Shingrix Vaccine Discontinued Covid-19 Vaccine Discontinued Data reviewed Latest Ref Rng 08/28/2024 Hemoglobin A1C (POCT) 4.3 - 5.6 % 8.2 ! ASSESSMENT/PLAN: 1. Hospital discharge follow-up - ICD9: V67.59, ICD10: Z09 (primary diagnosis) - XR CHEST 2V FRONTAL/LAT 2. Acute cough - ICD9: 786.2, ICD10: R05.1 - XR CHEST 2V FRONTAL/LAT 3. Controlled type 2 diabetes mellitus without complication, without long-term current use of insulin (HCC) - ICD9: 250.00, ICD10: E11.9 - Uncontrolled - Continue current medications - Start metformin ER in the evening. - Counseled on healthy diet and regular exercise - Discussed need for and benefit of weight loss. BMI 26.70 kg/(m^2) - HEMOGLOBIN A1C (POC) - HEMOGLOBIN A1C 4. Norovirus - ICD9: 008.63, ICD10: A08.11 -Resolved. Bernice Maier APRN.GRAVITY PROSPECTING OPERATOR HELPER documented in this encounter [facility] 08-25-2024 Note HNO ID: [id number] Author: FLETCHER PARKS MA Service: ? Author Type: Cupola Repairer Type: Progress Notes Filed: 08/25/2024 11:26 Note Text: Scan on 08/23/2024 5:21 PM by ProviderCherelle PA-C: Discharge Summary Patient scheduled for ER follow up 09/02 - ailyn Parks MA [facility] 08-25-2024 History of Present illness Narrative Scan on 08/23/2024 5:21 PM by Cherelle Montanez PA-C: Discharge Summary Patient scheduled for ER follow up 09/02 - ailyn Parks MA documented in this encounter [facility] 08-23-2024 Discharge summary [facility] 08-23-2024 Note [facility] Medical Records Department [address] [place] [address] Discharge Summary 08/23/24 1225 MR#: [id number] Acct: [id number] Name: SANTOS MOREL Rep #: [id number] : 1940 84 From: Yadira Pruett MD PCP: Dr. Yvan Rahman MD Status:DIS IN Location: [facility] [id number] Providers Date of Admission: 08/19/24 Date of Discharge: 08/23/24 Primary Care Physician: Dr. Yvan Rahman MD Consultations 08/19/24 13:20 Consult: Electro Plater / Pulmonary Medicine Routine Consulting Provider: Intensivists/Pulmonary Med Reason for Consult: sepsis, lactic 6.3, tachy, tachypneic, febrile EMERGENT Consult: No MD Notified: Yes Date Notified: 08/19/24 Time Notified: 11:39 Method of Notification: Text Reason For Visit: Viral sepsis secondary to norovirus Diagnosis Discharge Diagnosis (1) Sepsis: Status: Acute Code(s): A41.9 - Sepsis, unspecified organism (2) Urinary retention: Status: Acute Code(s): R33.9 - Retention of urine, unspecified (3) Mental status alteration: Status: Acute Code(s): R41.82 - Altered mental status, unspecified (4) Hyperglycemia: Status: Acute Code(s): R73.9 - Hyperglycemia, unspecified Plan # Sepsis suspect secondary to norovirus infection # Hypoxia suspect secondary to sepsis # Type 2 diabetes with significant hyperglycemia #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 Instructions: Resume on 08/26/24. omeprazole 20 mg capsule,delayed release 20 mg PO DAILY reflux 08/19/24 pioglitazone 30 mg tablet 30 mg PO DAILY diabetes 08/19/24 pravastatin 40 mg tablet 40 mg PO DAILY cholesterol 08/19/24 sitagliptin phos 100 mg-metformin ER 1,000 mg tablet,extend rel 24h mp (Janumet XR) 1 tab PO DAILY diabetes 08/19/24 tamsulosin 0.4 mg capsule 0.4 mg PO BID prostate 08/19/24 levothyroxine 150 mcg tablet 150 mcg PO DAILY 30 days #30 tabs 08/23/24 Hospital Course Summary of Care Provided Minutes Spent on Discharge: 33 Hospital Course: SANTOS MOREL, is a 84 M with a history of BPH, GERD, hypertension, hypothyroidism, diabetes presented [facility] ED 08/19/24 with nausea, vomiting, weakness and altered mental status. Patient had been in usual health the day before however he woke up at 4 AM and had a couple of episodes of diarrhea with multiple episodes of nausea and vomiting he was feeling weak and noted he was confused, patient was found to be hypoxic by EMS with O2 sat in the 80s requiring 2 L of O2, also tachypneic, tachycardic, febrile. Chest x-ray queried if there could be a developing pneumonia so he was started on broad-spectrum antibiotics, elevated lactic acid was noted and patient given IV fluids per sepsis protocol hospitalist contacted for admission. Also on arrival patient found to be retaining urine and Suárez was placed with 750 cc output. During patient's hospitalization cultures were all negative and patient was found to have norovirus, suspected that patient's sepsis was due to gastroenteritis related to norovirus. Patient slowly improved and cultures remain negative including sputum culture so antibiotics discontinued. Patient had Suárez removed day prior to discharge and did not seem to be struggling with emptying his bladder so Suárez was not replaced. Also of note patient did have some persistent sinus tachycardia, low-grade, with normal to high blood pressure, TSH was low and free T3 and free T4 were elevated, patient's Synthroid dose was decreased and patient's tachycardia improved to heart rate of around 100. On day of discharge patient still feeling somewhat weak but otherwise feeling much better, patient comfortable with going home, agreeable at this time. Discussed that now that patient is medically stable following hospitalization only potentially worsen patient's weakness and make it harder to go home, after discussing this it was agreed by all parties for patient to discharge home. Discharge instructions as follows: -Your Synthroid has been decreased to 150 mcg daily given your thyroid levels on admission, and is very possible this may need further adjustments through your prescribing physician but at this time you will be discharged on 150 mcg of Synthroid, new prescription was sent to preferred pharmacy on file. Please follow-up closely with your primary care physician as they will need to recheck labs in the future for further adjustments - would recommend restarting your losart (more content not included)... [facility] 08-22-2024 Progress note Note Date/Time August 22, 2024 5:31pm [facility] Medical Records Department [address] [place] [address] Progress Note - Hospitalist 08/22/24 1723 MR#: [id number] Acct: [id number] Name: SANTOS MOREL Rep #:[id number] : 1940 84 From: Yadira Pruett MD PCP: Dr. Yvan Rahman MD Status:ADM IN Location: [place] [address] Reason for Visit Reason for Visit: Diagnoses Sepsis, unspecified organism (08/19/24) Pneumonia, unspecified organism (08/19/24) Retention of urine, unspecified (08/19/24) Altered mental status, unspecified (08/19/24) Hyperglycemia, unspecified (08/19/24) Subjective Subjective No abdominal pain, has not had another bowel movement, reports his throat has been a little bit sore since he came in due to vomiting at home, no chest pain or shortness of breath, no cough Objective Data Objective Data Vital Signs: Vital Signs Temp Pulse Resp BP Pulse Ox O2 Del Method O2 Flow Rate 97.8 F 107 H 15 114/67 95 Room Air 2 08/22/24 14:28 08/22/24 14:28 08/22/24 14:28 08/22/24 14:28 08/22/24 14:28 08/22/24 14:28 08/20/24 07:15 Oxygen Flow Rate (L/min) 2 Oxygen Delivery Method Room Air Weight: 86.9 kg Body Mass Index (BMI) 26.7 Intake & Output: Intake and Output for Last 24 Hours 08/20/24 08/21/24 08/22/24 23:59 23:59 23:59 Intake Total 1726.67 / 1726.67 630 / 630 510 / 510 Output Total 1700 / 1700 1750 / 1750 Balance 26.67 / 26.67 -1120 / -1120 510 / 510 Lab / Micro Data 08/22/24 05:30 08/22/24 05:30 Labs: Laboratory Results - last 24 hr 08/21/24 23:21: POC Glucose 211 H 08/22/24 05:30: WBC 10.2, RBC 4.52 L, Hgb 12.9 L, Hct 38.2 L, MCV 84.5, MCH 28.5, MCHC 33.8, RDW Std Deviation 38.8, RDW Coeff of Yesenia 12.7, Plt Count 181, MPV 9.8, Immature Gran % (Auto) 0.600, Neut % (Auto) 82.2 H, Lymph % (Auto) 8.7 L, [place] % (Auto) 7.7, Eos % (Auto) 0.6, Baso % (Auto) 0.2, Absolute Neuts (auto)8.4 H, Absolute Lymphs (auto) 0.88, Nucleated RBC % 0, Sodium 137, Potassium 3.7, Chloride 102, Carbon Dioxide 25.2, Anion Gap 10, BUN 21 H, Creatinine 1.02,Estim Creat Clear Calc 59.47, Est GFR (MDRD) Non-Af 73, BUN/Creatinine Ratio 20.6 H, Glucose 192 H, Calcium 8.4 08/22/24 07:00: POC Glucose 220 H 08/22/24 10:43: POC Glucose 303 H 08/22/24 16:08: POC Glucose 321 H Micro: Microbiology 08/19/24 18:37 Sputum, Expectorated/Coughed Gram Stain - Final 08/19/24 18:37 Sputum, Expectorated/Coughed Respiratory Culture - Preliminary Appears to be normal respiratory fer. Further studies to follow. 08/19/24 09:35 Urine, Clean Catch Urine Culture - Final Culture exhibits no growth. 08/19/24 18:37 Stool Enteric Bacteriology - Final Norovirus 08/19/24 14:42 Mucosa - Nasopharyngeal Respiratory Panel (PCR) - Final 08/19/24 15:26 Urine Catheter - Catheter Legionella Antigen - Final 08/19/24 15:26 Urine Catheter - Catheter Streptococcus pneumoniae Antigen (M- Final 08/19/24 09:01 Mucosa - Nose SARS-CoV-2, Influenza & RSV (PCR) - Final Physical Exam Narrative General: Alert, no apparent distress HEENT: Atraumatic, normocephalic Eyes: Anicteric, normal conjunctiva, extraocular movements grossly intact Neck: Supple Respiratory: No overt wheezes or rhonchi, tachypnea improving Cardiovascular: Intermittent low-grade sinus tachycardia GI: No significant tenderness, rebound, guarding, or rigidity Extremities: No significant pitting edema appreciated, very trace amount of lower right rosenberg but very minimal Musculoskeletal: Moving all extremities Neuro: No overt focal neurological deficits Skin: No rashes appreciated Psych: Cooperative Assessment & Plan Assessment/Plan (1) Sepsis: (2) Urinary retention: (3) Pneumonia: (4) Mental status alteration: (5) Hyperglycemia: PLAN: Plan # Sepsis suspect secondary to pneumonia complicated by norovirus infection - Patient febrile, tachycardic, tachypneic with chest x-ray suggestive of pneumonia - Additionally elevated white blood cell count and elevated lactic acid, additionally hyperglycemic above baseline -Patient additionally hypoxic when EMS arrived and had acute metabolic encephalopathy secondary to above - IV fluids per sepsis protocol - Patient to be admitted to the ICU with case making machine operator consult - Blood and urine culture sent, you did not appear overtly infectious at this time however - Patient will be covered for pneumonia, given penicillin allergy will avoid penicillins -DuoNebs and as needed albuterol -Sputum culture, COVID negative, respiratory panel ordered -Urine antigens -Mucinex, I/S - Broad-spectrum antibiotics given significance of illness -08/20: Patient's stool positive for norovirus, unsure if this explains entire clinical picture or if illness has been complicated by secondary bacterial infection. Patient presently on IV fluids and being monitored in the ICU on antibiotics, can likely de-escalate antibiotics if cultures remain negative -08/21: Culture still negative, if they remain so for the next 24 to 48 hours will likely DC antibiotics, overall improving, intermittently little bit tachypneic and tachycardic but not profoundly so and patient is normotensive -08/22: Will plan to DC antibiotics tomorrow if culture still negative, patient is evenings is feeling somewhat weak but also did not sleep well last night # Hypoxia -suspect secondary to pneumonia and sepsis -Patient presently on 2 L O2, is tachypneic but to some extent suspect this is presently due to his acidosis -Will monitor closely -08/20: This is improving, had been on room air, presently on 2 L of nasal cannula but overall respiratory status improved from presentation -08/21: Remains slightly tachypneic but not in overt distress, patient presently on room air -08/22: Resting comfortably on room air # Type 2 diabetes with significant hyperglycemia -Serum glucose in ED initially 473 with an anion gap of 22 however patient also has a lactic of 6.3 so difficult to tell how much gap has been affected - Does have urine ketones however and does have an increase in beta hydroxybutyrate - Will give dose of IV insulin and schedule every 4 glucose checks with high correction factor, if this does not improve and beta hydroxybutyrate does not improve may need to make n.p.o. and have DKA protocol -Aggressive fluid hydration - Glucose checks -I's and O's -A1c in the a.m. 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 -Continue home medications, patient with Suárez due to urinary retention - 750 out after Suárez placement -08/21: Was retaining on presentation, may consider void trial prior to dischargeversus urology follow-up as it is unclear the chronicity -08/22: Will DC Suárez catheter and attempt void trial, if needed will replace prior to discharge if patient continues to retain-can follow-up with urology on an outpatient basis #Hypothyroidism -Continue Synthroid -08/21: TSH is low, will check free T3 and free T4 -08/22: Free T4 is high, slightly decreased patient's Synthroid, query if this ispart of the reason for patient's tachycardia as patient otherwise has significantly improved, continue to monitor closely, will need follow-up on outpatient basis, patient and verbalized understanding Chronic medical problems and/or problems not being actively addressed during today's encounter: #GERD -Continue PPI #Hypertension - Given patient's acute illness we will hold home antihypertensives and add backas tolerated #DVT ppx: Lovenox subcu Yadira Pruett MD Time spent in the patient's overall evaluation,decision-making process, review of diagnostic data, adjustment of management, discussion with other providers, nursing nursing and ancillary staff involved in patient's care documentation, 38minutes Charges/Coding Visit Charges Inpatient E&M: 29285 Subs Hosp L2 08/22/24 7698 <Electronically signed by Yadira Pruett MD> Cosigner Signature (if applicable): CC: ~ Signed [facility] Work Phone: 1(612) 463-315104-12-2025 Progress note [facility] Medical Records Department [address] [place] [address] Progress Note - Hospitalist 08/22/24 1723 MR#: [id number] Acct: [id number] Name: SANTOS MOREL Rep #:[id number] : 1940 84 From: Yadira Pruett MD PCP: Dr. Yvan Rahman MD Status:ADM IN Location: [place] [address] Reason for Visit Reason for Visit: Diagnoses Sepsis, unspecified organism (08/19/24) Pneumonia, unspecified organism (08/19/24) Retention of urine, unspecified (08/19/24) Altered mental status, unspecified (08/19/24) Hyperglycemia, unspecified (08/19/24) Subjective Subjective No abdominal pain, has not had another bowel movement, reports his throat has been a little bit sore since he came in due to vomiting at home, no chest pain or shortness of breath, no cough Objective Data Objective Data Vital Signs: Vital Signs Temp Pulse Resp BP Pulse Ox O2 Del Method O2 Flow Rate 97.8 F 107 H 15 114/67 95 Room Air 2 08/22/24 14:28 08/22/24 14:28 08/22/24 14:28 08/22/24 14:28 08/22/24 14:28 08/22/24 14:28 08/20/24 07:15 Oxygen Flow Rate (L/min) 2 Oxygen Delivery Method Room Air Weight: 86.9 kg Body Mass Index (BMI) 26.7 Intake & Output: Intake and Output for Last 24 Hours 08/20/24 08/21/24 08/22/24 23:59 23:59 23:59 Intake Total 1726.67 / 1726.67 630 / 630 510 / 510 Output Total 1700 / 1700 1750 / 1750 Balance 26.67 / 26.67 -1120 / -1120 510 / 510 Lab / Micro Data 08/22/24 05:30 08/22/24 05:30 Labs: Laboratory Results - last 24 hr 08/21/24 23:21: POC Glucose 211 H 08/22/24 05:30: WBC 10.2, RBC 4.52 L, Hgb 12.9 L, Hct 38.2 L, MCV 84.5, MCH 28.5, MCHC 33.8, RDW Std Deviation 38.8, RDW Coeff of Yesenia 12.7, Plt Count 181, MPV 9.8, Immature Gran % (Auto) 0.600, Neut % (Auto) 82.2 H, Lymph % (Auto) 8.7 L, [place] % (Auto) 7.7, Eos % (Auto) 0.6, Baso % (Auto) 0.2, Absolute Neuts (auto)8.4 H, Absolute Lymphs (auto) 0.88, Nucleated RBC % 0, Sodium 137, Potassium 3.7, Chloride 102, Carbon Dioxide 25.2, Anion Gap 10, BUN 21 H, Creatinine 1.02,Estim Creat Clear Calc 59.47, Est GFR (MDRD) Non-Af 73, BUN/Creatinine Ratio 20.6 H, Glucose 192 H, Calcium 8.4 08/22/24 07:00: POC Glucose 220 H 08/22/24 10:43: POC Glucose 303 H 08/22/24 16:08: POC Glucose 321 H Micro: Microbiology 08/19/24 18:37 Sputum, Expectorated/Coughed Gram Stain - Final 08/19/24 18:37 Sputum, Expectorated/Coughed Respiratory Culture - Preliminary Appears to be normal respiratory fer. Further studies to follow. 08/19/24 09:35 Urine, Clean Catch Urine Culture - Final Culture exhibits no growth. 08/19/24 18:37 Stool Enteric Bacteriology - Final Norovirus 08/19/24 14:42 Mucosa - Nasopharyngeal Respiratory Panel (PCR) - Final 08/19/24 15:26 Urine Catheter - Catheter Legionella Antigen - Final 08/19/24 15:26 Urine Catheter - Catheter Streptococcus pneumoniae Antigen (M- Final 08/19/24 09:01 Mucosa - Nose SARS-CoV-2, Influenza & RSV (PCR) - Final Physical Exam Narrative General: Alert, no apparent distress HEENT: Atraumatic, normocephalic Eyes: Anicteric, normal conjunctiva, extraocular movements grossly intact Neck: Supple Respiratory: No overt wheezes or rhonchi, tachypnea improving Cardiovascular: Intermittent low-grade sinus tachycardia GI: No significant tenderness, rebound, guarding, or rigidity Extremities: No significant pitting edema appreciated, very trace amount of lower right rosenberg but very minimal Musculoskeletal: Moving all extremities Neuro: No overt focal neurological deficits Skin: No rashes appreciated Psych: Cooperative Assessment & Plan Assessment/Plan (1) Sepsis: (2) Urinary retention: (3) Pneumonia: (4) Mental status alteration: (5) Hyperglycemia: PLAN: Plan # Sepsis suspect secondary to pneumonia complicated by norovirus infection - Patient febrile, tachycardic, tachypneic with chest x-ray suggestive of pneumonia - Additionally elevated white blood cell count and elevated lactic acid, additionally hyperglycemicabove baseline -Patient additionally hypoxic when EMS arrived and had acute metabolic encephalopathy secondary to above - IV fluids per sepsis protocol - Patient to be admitted to the ICU with case making machine operator consult - Blood and urine culture sent, you did not appear overtly infectious at this time however - Patient will be covered for pneumonia, given penicillin allergy will avoid penicillins -DuoNebs and as needed albuterol -Sputum culture, COVID negative, respiratory panel ordered -Urine antigens -Mucinex, I/S - Broad-spectrum antibiotics given significance of illness -08/20: Patient's stool positive for norovirus, unsure if this explains entire clinical picture or if illness has been complicated by secondary bacterial infection. Patient presently on IV fluids and being monitored in the ICU on antibiotics, can likely de-escalate antibiotics if cultures remain negative -08/21: Culture still negative, if they remain so for the next 24 to 48 hours will likely DC antibiotics, overall improving, intermittently little bit tachypneic and tachycardic but not profoundly so and patient is normotensive -08/22: Will plan to DC antibiotics tomorrow if culture still negative, patient is evenings is feeling somewhat weak but also did not sleep well last night # Hypoxia -suspect secondary to pneumonia and sepsis -Patient presently on 2 L O2, is tachypneic but to some extent suspect this is presently due to hisacidosis -Will monitor closely -08/20: This is improving, had been on room air, presently on 2 L of nasal cannula but overall respiratory status improved from presentation -08/21: Remains slightly tachypneic but not in overt distress, patient presently on room air -08/22: Resting comfortably on room air # Type 2 diabetes with significant hyperglycemia -Serum glucose in ED initially 473 with an anion gap of 22 however patient also has a lactic of 6.3so difficult to tell how much gap has been affected - Does have urine ketones however and does have an increase in beta hydroxybutyrate - Will give dose of IV insulin and schedule every 4 glucose checks with high correction factor, if this does not improve and beta hydroxybutyrate does not improve may need to make n.p.o. and have DKAprotocol -Aggressive fluid hydration - Glucose checks -I's and O's -A1c in the a.m. 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 -Continue home medications, patient with Suárez due to urinary retention - 750 out after Suárez placement -08/21: Was retaining on presentation, may consider void trial prior to dischargeversus urology follow-up as it is unclear the chronicity -08/22: Will DC Suárez catheter and attempt void trial, if needed will replace prior to discharge if patient continues to retain-can follow-up with urology on an outpatient basis #Hypothyroidism -Continue Synthroid -08/21: TSH is low, will check free T3 and free T4 -08/22: Free T4 is high, slightly decreased patient's Synthroid, query if this ispart of the reason for patient's tachycardia as patient otherwise has significantly improved, continue to monitor closely, will need follow-up on outpatient basis, patient and verbalized understanding Chronic medical problems and/or problems not being actively addressed during today's encounter: #GERD -Continue PPI #Hypertension - Given patient's acute illness we will hold home antihypertensives and add backas tolerated #DVT ppx: Lovenox subcu Yadira Pruett MD Time spent in the patient's overall evaluation,decision-making process, review of diagnostic data, adjustment of management, discussion with other providers, nursing nursing and ancillary staff involved in patient's care documentation, 38minutes Charges/Coding Visit Charges Inpatient E&M: 30640 Subs Hosp L2 08/22/24 1731 Cosigner Signature (if applicable): CC: ~ Signed [facility]04-11-2025 Progress note Author Yadira Pruett [facility] Note Date/Time August 21, 2024 1:1 2pm [facility] Medical Records Department [address] [place] [address] Progress Note - Hospitalist 08/21/24 1255 MR#: [id number] Acct: [id number] Name: SANTOS MOREL Rep #:[id number] : 1940 84 From: Yadira Pruett MD PCP: Dr. Yvan Rahman MD Status:ADM IN Location: ICU ICU01-1 Reason for Visit Reason for Visit: Diagnoses Sepsis, unspecified organism (08/19/24) Pneumonia, unspecified organism (08/19/24) Retention of urine, unspecified (08/19/24) Altered mental status, unspecified (08/19/24) Hyperglycemia, unspecified (08/19/24) Subjective Subjective Patient sitting up in chair, did get somewhat confused again overnight, did wellwith therapy today up and walking around, not actively vomiting, abdomen bothering him a little bit but not significantly so, does not note any significant shortness of breath but does have some cough Objective Data Objective Data Vital Signs: Vital Signs Temp Pulse Resp BP Pulse Ox O2 Del Method O2 Flow Rate 98.2 F 104 H 22 H 151/77 H 92 Room Air 2 08/21/24 06:00 08/21/24 06:50 08/21/24 06:50 08/21/24 06:00 08/21/24 06:50 08/21/24 08:00 08/20/24 07:15 Oxygen Flow Rate (L/min) 2 Oxygen Delivery Method Room Air Weight: 88.1 kg Body Mass Index (BMI) 27.1 Intake & Output: Intake and Output for Last 24 Hours 08/19/24 08/20/24 08/21/24 23:59 23:59 23:59 Intake Total 4380 / 4380 1726.67 / 1726.67 390 / 390 Output Total 1300 / 1900 1700 / 1700 1025 / 1025 Balance 3080 / 2480 26.67 / 26.67 -635 / -635 Lab / Micro Data 08/21/24 05:45 08/21/24 05:45 Labs: Laboratory Results - last 24 hr 08/20/24 16:25: POC Glucose 264 H 08/20/24 21:47: POC Glucose 216 H 08/21/24 05:45: WBC 12.6 H, RBC 4.44 L, Hgb 12.7 L, Hct 36.8 L, MCV 82.9, MCH 28.6, MCHC 34.5, RDW Std Deviation 39.0, RDW Coeff of Yesenia 12.9, Plt Count 146 L,MPV 9.5, Immature Gran % (Auto) 0.600, Neut % (Auto) 85.8 H, Lymph % (Auto) 5.8 L, [place] % (Auto) 7.6, Eos % (Auto) 0.0, Baso % (Auto) 0.2, Absolute Neuts (auto)10.8 H, Absolute Lymphs (auto) 0.73 L, Nucleated RBC % 0, Sodium 134, Potassium 4.3, Chloride 102, Carbon Dioxide 21.1, Anion Gap 11, BUN 19, Creatinine 0.90, Estim Creat Clear Calc 67.40, Est GFR (MDRD) Non-Af 85, BUN/Creatinine Ratio 21.0 H, Glucose 264 H, Calcium 8.1 08/21/24 08:10: POC Glucose 257 H 08/21/24 11:27: POC Glucose 312 H Micro: Microbiology 08/19/24 18:37 Sputum, Expectorated/Coughed Gram Stain - Final 08/19/24 18:37 Sputum, Expectorated/Coughed Respiratory Culture - Preliminary Appears to be normal respiratory fer. Further studies to follow. 08/19/24 09:35 Urine, Clean Catch Urine Culture - Final Culture exhibits no growth. 08/19/24 18:37 Stool Enteric Bacteriology - Final Norovirus 08/19/24 14:42 Mucosa - Nasopharyngeal Respiratory Panel (PCR) - Final 08/19/24 15:26 Urine Catheter - Catheter Legionella Antigen - Final 08/19/24 15:26 Urine Catheter - Catheter Streptococcus pneumoniae Antigen (M- Final 08/19/24 09:01 Mucosa - Nose SARS-CoV-2, Influenza & RSV (PCR) - Final Physical Exam Narrative General: Alert, oriented, no apparent distress HEENT: Atraumatic, normocephalic Eyes: Anicteric, normal conjunctiva, extraocular movements grossly intact Neck: Supple Respiratory: No overt wheezes or rhonchi, does have some slight tachypnea but similar to previous Cardiovascular: Intermittent low-grade sinus tachycardia GI: Not rigid, little bit distended with some generalized tenderness without rebound, guarding, rigidity Extremities: No significant pitting edema appreciated, very trace amount of lower right rosenberg but very minimal Musculoskeletal: Moving all extremities Neuro: No overt focal neurological deficits Skin: No rashes appreciated Psych: Cooperative Assessment & Plan Assessment/Plan (1) Sepsis: (2) Urinary retention: (3) Pneumonia: (4) Mental status alteration: (5) Hyperglycemia: PLAN: Plan # Sepsis suspect secondary to pneumonia complicated by norovirus infection - Patient febrile, tachycardic, tachypneic with chest x-ray suggestive of pneumonia - Additionally elevated white blood cell count and elevated lactic acid, additionally hyperglycemic above baseline -Patient additionally hypoxic when EMS arrived and had acute metabolic encephalopathy secondary to above - IV fluids per sepsis protocol - Patient to be admitted to the ICU with case making machine operator consult - Blood and urine culture sent, you did not appear overtly infectious at this time however - Patient will be covered for pneumonia, given penicillin allergy will avoid penicillins -DuoNebs and as needed albuterol -Sputum culture, COVID negative, respiratory panel ordered -Urine antigens -Mucinex, I/S - Broad-spectrum antibiotics given significance of illness -08/20: Patient's stool positive for norovirus, unsure if this explains entire clinical picture or if illness has been complicated by secondary bacterial infection. Patient presently on IV fluids and being monitored in the ICU on antibiotics, can likely de-escalate antibiotics if cultures remain negative -08/21: Culture still negative, if they remain so for the next 24 to 48 hours will likely DC antibiotics, overall improving, intermittently little bit tachypneic and tachycardic but not profoundly so and patient is normotensive # Hypoxia -suspect secondary to pneumonia and sepsis -Patient presently on 2 L O2, is tachypneic but to some extent suspect this is presently due to his acidosis -Will monitor closely -08/20: This is improving, had been on room air, presently on 2 L of nasal cannula but overall respiratory status improved from presentation -08/21: Remains slightly tachypneic but not in overt distress, patient presently on room air # Type 2 diabetes with significant hyperglycemia -Serum glucose in ED initially 473 with an anion gap of 22 however patient also has a lactic of 6.3 so difficult to tell how much gap has been affected - Does have urine ketones however and does have an increase in beta hydroxybutyrate - Will give dose of IV insulin and schedule every 4 glucose checks with high correction factor, if this does not improve and beta hydroxybutyrate does not improve may need to make n.p.o. and have DKA protocol -Aggressive fluid hydration - Glucose checks -I's and O's -A1c in the a.m. 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 -Continue home medications, patient with Suárez due to urinary retention - 750 out after Suárez placement -08/21: Was retaining on presentation, may consider void trial prior to dischargeversus urology follow-up as it is unclear the chronicity #Hypothyroidism -Continue Synthroid -08/21: TSH is low, will check free T3 and free T4 Chronic medical problems and/or problems not being actively addressed during today's encounter: #GERD -Continue PPI #Hypertension - Given patient's acute illness we will hold home antihypertensives and add backas tolerated #DVT ppx: Lovenox subcu Yadira Pruett MD Time spent in the patient's overall evaluation,decision-making process, review of diagnostic data, adjustment of management, discussion with other providers, nursing nursing and ancillary staff involved in patient's care documentation, 37minutes Charges/Coding Visit Charges Inpatient E&M: 91536 Subs Hosp L2 08/21/24 1312 <Electronically signed by Yadira Pruett MD> Cosigner Signature (if applicable): CC: ~ Signed [facility] Work Phone: 1([phone]) 298-201604-11-2025 Progress note [facility] Medical Records Department [address] [place] [address] Progress Note - Hospitalist 08/21/24 1255 MR#: [id number] Acct: [id number] Name: SANTOS MOREL Rep #:[id number] 15 : 1940 84 From: Yadira Pruett MD PCP: Dr. Yvan Rahman MD Status:ADM IN Location: ICU ICU01-1 Reason for Visit Reason for Visit: Diagnoses Sepsis, unspecified organism (08/19/24) Pneumonia, unspecified organism (08/19/24) Retention of urine, unspecified (08/19/24) Altered mental status, unspecified (08/19/24) Hyperglycemia, unspecified (08/19/24) Subjective Subjective Patient sitting up in chair, did get somewhat confused again overnight, did wellwith therapy today up and walking around, not actively vomiting, abdomen bothering him a little bit but not significantly so, does not note any significant shortness of breath but does have some cough Objective Data Objective Data Vital Signs: Vital Signs Temp Pulse Resp BP Pulse Ox O2 Del Method O2 Flow Rate 98.2 F 104 H 22 H 151/77 H 92 Room Air 2 08/21/24 06:00 08/21/24 06:50 08/21/24 06:50 08/21/24 06:00 08/21/24 06:50 08/21/24 08:00 08/20/24 07:15 Oxygen Flow Rate (L/min) 2 Oxygen Delivery Method Room Air Weight: 88.1 kg Body Mass Index (BMI) 27.1 Intake & Output: Intake and Output for Last 24 Hours 08/19/24 08/20/24 08/21/24 23:59 23:59 23:59 Intake Total 4380 / 4380 1726.67 / 1726.67 390 / 390 Output Total 1300 / 1900 1700 / 1700 1025 / 1025 Balance 3080 / 2480 26.67 / 26.67 -635 / -635 Lab / Micro Data 08/21/24 05:45 08/21/24 05:45 Labs: Laboratory Results - last 24 hr 08/20/24 16:25: POC Glucose 264 H 08/20/24 21:47: POC Glucose 216 H 08/21/24 05:45: WBC 12.6 H, RBC 4.44 L, Hgb 12.7 L, Hct 36.8 L, MCV 82.9, MCH 28.6, MCHC 34.5, RDW Std Deviation 39.0, RDW Coeff of Yesenia 12.9, Plt Count 146 L,MPV 9.5, Immature Gran % (Auto) 0.600, Neut % (Auto) 85.8 H, Lymph % (Auto) 5.8 L, [place] % (Auto) 7.6, Eos % (Auto) 0.0, Baso % (Auto) 0.2, Absolute Neuts (auto)10.8 H, Absolute Lymphs (auto) 0.73 L, Nucleated RBC % 0, Sodium 134, Potassium 4.3, Chloride 102, Carbon Dioxide 21.1, Anion Gap 11, BUN 19, Creatinine 0.90, Estim Creat Clear Calc67.40, Est GFR (MDRD) Non-Af 85, BUN/Creatinine Ratio 21.0 H, Glucose 264 H, Calcium 8.1 08/21/24 08:10: POC Glucose 257 H 08/21/24 11:27: POC Glucose 312 H Micro: Microbiology 08/19/24 18:37 Sputum, Expectorated/Coughed Gram Stain - Final 08/19/24 18:37 Sputum, Expectorated/Coughed Respiratory Culture - Preliminary Appears to be normal respiratory fer. Further studies to follow. 08/19/24 09:35 Urine, Clean Catch Urine Culture - Final Culture exhibits no growth. 08/19/24 18:37 Stool Enteric Bacteriology - Final Norovirus 08/19/24 14:42 Mucosa - Nasopharyngeal Respiratory Panel (PCR) - Final 08/19/24 15:26 Urine Catheter - Catheter Legionella Antigen - Final 08/19/24 15:26 Urine Catheter - Catheter Streptococcus pneumoniae Antigen (M- Final 08/19/24 09:01 Mucosa - Nose SARS-CoV-2, Influenza & RSV (PCR) - Final Physical Exam Narrative General: Alert, oriented, no apparent distress HEENT: Atraumatic, normocephalic Eyes: Anicteric, normal conjunctiva, extraocular movements grossly intact Neck: Supple Respiratory: No overt wheezes or rhonchi, does have some slight tachypnea but similar to previous Cardiovascular: Intermittent low-grade sinus tachycardia GI: Not rigid, little bit distended with some generalized tenderness without rebound, guarding, rigidity Extremities: No significant pitting edema appreciated, very trace amount of lower right rosenberg but very minimal Musculoskeletal: Moving all extremities Neuro: No overt focal neurological deficits Skin: No rashes appreciated Psych: Cooperative Assessment & Plan Assessment/Plan (1) Sepsis: (2) Urinary retention: (3) Pneumonia: (4) Mental status alteration: (5) Hyperglycemia: PLAN: Plan # Sepsis suspect secondary to pneumonia complicated by norovirus infection - Patient febrile, tachycardic, tachypneic with chest x-ray suggestive of pneumonia - Additionally elevated white blood cell count and elevated lactic acid, additionally hyperglycemicabove baseline -Patient additionally hypoxic when EMS arrived and had acute metabolic encephalopathy secondary to above - IV fluids per sepsis protocol - Patient to be admitted to the ICU with case making machine operator consult - Blood and urine culture sent, you did not appear overtly infectious at this time however - Patient will be covered for pneumonia, given penicillin allergy will avoid penicillins -DuoNebs and as needed albuterol -Sputum culture, COVID negative, respiratory panel ordered -Urine antigens -Mucinex, I/S - Broad-spectrum antibiotics given significance of illness -08/20: Patient's stool positive for norovirus, unsure if this explains entire clinical picture or if illness has been complicated by secondary bacterial infection. Patient presently on IV fluids and being monitored in the ICU on antibiotics, can likely de-escalate antibiotics if cultures remain negative -08/21: Culture still negative, if they remain so for the next 24 to 48 hours will likely DC antibiotics, overall improving, intermittently little bit tachypneic and tachycardic but not profoundly so and patient is normotensive # Hypoxia -suspect secondary to pneumonia and sepsis -Patient presently on 2 L O2, is tachypneic but to some extent suspect this is presently due to hisacidosis -Will monitor closely -08/20: This is improving, had been on room air, presently on 2 L of nasal cannula but overall respiratory status improved from presentation -08/21: Remains slightly tachypneic but not in overt distress, patient presently on room air # Type 2 diabetes with significant hyperglycemia -Serum glucose in ED initially 473 with an anion gap of 22 however patient also has a lactic of 6.3so difficult to tell how much gap has been affected - Does have urine ketones however and does have an increase in beta hydroxybutyrate - Will give dose of IV insulin and schedule every 4 glucose checks with high correction factor, if this does not improve and beta hydroxybutyrate does not improve may need to make n.p.o. and have DKAprotocol -Aggressive fluid hydration - Glucose checks -I's and O's -A1c in the a.m. 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 -Continue home medications, patient with Suárez due to urinary retention - 750 out after Suárez placement -08/21: Was retaining on presentation, may consider void trial prior to dischargeversus urology follow-up as it is unclear the chronicity #Hypothyroidism -Continue Synthroid -08/21: TSH is low, will check free T3 and free T4 Chronic medical problems and/or problems not being actively addressed during today's encounter: #GERD -Continue PPI #Hypertension - Given patient's acute illness we will hold home antihypertensives and add backas tolerated #DVT ppx: Lovenox subcu Yadira Pruett MD Time spent in the patient's overall evaluation,decision-making process, review of diagnostic data, adjustment of management, discussion with other providers, nursing nursing and ancillary staff involved in patient's care documentation, 37minutes Charges/Coding Visit Charges Inpatient E&M: 99236 Subs Hosp L2 08/21/24 1312 Cosigner Signature (if applicable): CC: ~ Signed [facility]04-11-2025 Progress note Author Case Paredes [facility] Note Date/Time August 21, 2024 9:2 5am [facility] Medical Records Department [address] [place] [address] Progress Note - Electro Plater 08/21/24 0829 MR#: [id number] Acct: [id number] Name: SANTOS MOREL Rep #:[id number] 18 : 1940 84 From: Case Paredes DO PCP: Dr. Yvan Rahman MD Status:ADM IN Location: ICU ICU01-1 Assessment & Plan Assessment/Plan (1) Sepsis: PLAN: Plan RECOMMENDATIONS: 1. Continue empiric antibiotics, pending culture results. 2. If cultures remain negative over the next 24 to 48 hours, antibiotics can bediscontinued from my perspective. 3. Encourage incentive spirometer use and mobilize patient as tolerated. 4. Continue appropriate DVT prophylaxis. 5. Will sign off from a critical care perspective. Please call with any additional questions. IMPRESSIONS: 1. Sepsis The patient presented with sepsis due probable gastroenteritis related to norovirus. Although pneumonia was a potential concern, the patient's chest imaging looks less convincing for infection, from my perspective. The patient had evidence of sepsis related organ dysfunction as evidenced by lactic acidemia, likely related to hypovolemia. The patient's clinical state has improved with volume expansion and empiric antimicrobials. Recommend continuingsupportive care. If cultures are negative, antibiotics can be discontinued. 2. Remote history of lung CA/BPH/hypothyroidism/GERD/hypertension/diabetes mellitus Complicates care, management, recovery and prognosis. Continue home medicationsas indicated. Continue sliding scale insulin coverage ACHS, as ordered. This note was generated with [employer] dictation software. It may contain incorrectwords, spelling, and punctuation that were not noted in checking the note beforesigning. Subjective Subjective The patient was seen and examined at the bedside this morning. Events from the last 24 hours have been reviewed. The patient is currently afebrile, hemodynamically stable and maintaining appropriate oxygen saturations on room air. No overnight events were noted. White blood cell count this morning was noted to be 12,000. Chemistry profile was unremarkable. Objective Data Objective Data The patient's most recent lab work, culture data and imaging studies have all been personally reviewed. Enteric panel was positive for norovirus. Strep and urine Legionella antigens were negative. Blood and urine cultures are pending. Vital Signs: Vital Signs Temp Pulse Resp BP Pulse Ox O2 Del Method O2 Flow Rate 98.2 F 104 H 22 H 151/77 H 92 Room Air 2 08/21/24 06:00 08/21/24 06:50 08/21/24 06:50 08/21/24 06:00 08/21/24 06:50 08/21/24 06:50 08/20/24 07:15 Oxygen Flow Rate (L/min) 2 Oxygen Delivery Method Room Air Weight: 194 lb 3.636 oz Body Mass Index (BMI) 27.1 Intake & Output: Intake and Output for Last 24 Hours 08/19/24 08/20/24 08/21/24 23:59 23:59 23:59 Intake Total 4380 / 4380 1726.67 / 1726.67 240 / 240 Output Total 1300 / 1900 1700 / 1700 1025 / 1025 Balance 3080 / 2480 26.67 / 26.67 -785 / -785 Lab / Micro Data Attestation: I reviewed the patient's lab results. 08/21/24 05:45 08/21/24 05:45 Labs: Laboratory Results - last 24 hr 08/20/24 06:19: POC Glucose 199 H 08/20/24 11:16: POC Glucose 260 H 08/20/24 16:25: POC Glucose 264 H 08/20/24 21:47: POC Glucose 216 H 08/21/24 05:45: WBC 12.6 H, RBC 4.44 L, Hgb 12.7 L, Hct 36.8 L, MCV 82.9, MCH 28.6, MCHC 34.5, RDW Std Deviation 39.0, RDW Coeff of Yesenia 12.9, Plt Count 146 L,MPV 9.5, Immature Gran % (Auto) 0.600, Neut % (Auto) 85.8 H, Lymph % (Auto) 5.8 L, Coamo % (Auto) 7.6, Eos % (Auto) 0.0, Baso % (Auto) 0.2, Absolute Neuts (auto)10.8 H, Absolute Lymphs (auto) 0.73 L, Nucleated RBC % 0, Sodium 134, Potassium 4.3, Chloride 102, Carbon Dioxide 21.1, Anion Gap 11, BUN 19, Creatinine 0.90, Estim Creat Clear Calc 67.40, Est GFR (MDRD) Non-Af 85, BUN/Creatinine Ratio 21.0 H, Glucose 264 H, Calcium 8.1 Micro: Microbiology 08/19/24 18:37 Sputum, Expectorated/Coughed Gram Stain - Final 08/19/24 18:37 Stool Enteric Bacteriology - Final Norovirus 08/19/24 09:35 Urine, Clean Catch Urine Culture - Preliminary Culture exhibits no growth. 08/19/24 14:42 Mucosa - Nasopharyngeal Respiratory Panel (PCR) - Final 08/19/24 15:26 Urine Catheter - Catheter Legionella Antigen - Final 08/19/24 15:26 Urine Catheter - Catheter Streptococcus pneumoniae Antigen (M- Final 08/19/24 09:01 Mucosa - Nose SARS-CoV-2, Influenza & RSV (PCR) - Final Radiography Diagnostic Testing: Radiology Impression Chest X-Ray 08/19/24 09:03 IMPRESSION: Prominent lung markings at the left lung base. Can not exclude a developing infiltrate. Elevation of the right hemidiaphragm. Reading Location: [place] [address] Physical Exam Const alert, oriented x3 and no apparent distress Constitutional Narrative: Sitting in bedside recliner. General Appearance: cooperative HEENT normocephalic, head/scalp atraumatic and moist oral mucous membranes Eyes EOMs intact bilaterally, conjunctivae normal and no scleral icterus Neck supple General: trachea midline Chest inspection of chest normal Resp normal respiratory effort and no use of accessory muscles Auscultation: Negative for rales, rhonchi or wheezes Cardio S1 normal heart sound and S2 normal heart sound Rate: tachycardic GI normal to inspection, nondistended, normoactive bowel sounds Extremity no clubbing, cyanosis or edema Skin no rashes or lesions noted Neuro CN's II-XII intact bilaterally, moves all extremities and no focal motor deficits Psych cooperative and affect normal Charges/Coding Visit Charges Inpatient E&M: 83012 Subs Hosp L2 08/21/24924 <Electronically signed by Case Paredes DO> Cosigner Signature (if applicable): CC: ~ Signed [facility] Work Phone: 1(132) 847-927104-11-2025 Progress note [facility] Medical Records Department [address] [place] [address] Progress Note - Electro Plater 08/21/24828 MR#: [id number] Acct: [id number] Name: ADRIELSANTOS Rep #:[id number] 18 : 1940 84 From: Case Paredes DO PCP: Dr. Yvan Rahman MD Status:ADM IN Location: ICU ICU01-1 Assessment & Plan Assessment/Plan (1) Sepsis: PLAN: Plan RECOMMENDATIONS: 1. Continue empiric antibiotics, pending culture results. 2. If cultures remain negative over the next 24 to 48 hours, antibiotics can bediscontinued from myperspective. 3. Encourage incentive spirometer use and mobilize patient as tolerated. 4. Continue appropriate DVT prophylaxis. 5. Will sign off from a critical care perspective. Please call with any additional questions. IMPRESSIONS: 1. Sepsis The patient presented with sepsis due probable gastroenteritis related to norovirus. Although pneumonia was a potential concern, the patient's chest imaging looks less convincing for infection, from my perspective. The patient had evidence of sepsis related organ dysfunction as evidenced by lactic a cidemia, likely related to hypovolemia. The patient's clinical state has improved with volume expansion and empiric antimicrobials. Recommend continuingsupportive care. If cultures are negative, antibiotics can be discontinued. 2. Remote history of lung CA/BPH/hypothyroidism/GERD/hypertension/diabetes mellitus Complicates care, management, recovery and prognosis. Continue home medicationsas indicated. Continue sliding scale insulin coverage ACHS, as ordered. This note was generated with [employer] dictation software. It may contain incorrectwords, spelling, and punctuation that were not noted in checking the note beforesigning. Subjective Subjective The patient was seen and examined at the bedside this morning. Events from the last 24 hours have been reviewed. The patient is currently afebrile, hemodynamically stable and maintaining appropriate oxygen saturations on room air. No overnight events were noted. White blood cell count this morning was noted to be 12,000. Chemistry profile was unremarkable. Objective Data Objective Data The patient's most recent lab work, culture data and imaging studies have all been personally reviewed. Enteric panel was positive for norovirus. Strep and urine Legionella antigens were negative. Blood and urine cultures are pending. Vital Signs: Vital Signs Temp Pulse Resp BP Pulse Ox O2 Del Method O2 Flow Rate 98.2 F 104 H 22 H 151/77 H 92 Room Air 2 08/21/24 06:00 08/21/24 06:50 08/21/24 06:50 08/21/24 06:00 08/21/24 06:50 08/21/24 06:50 08/20/24 07:15 Oxygen Flow Rate (L/min) 2 Oxygen Delivery Method Room Air Weight: 194 lb 3.636 oz Body Mass Index (BMI) 27.1 Intake & Output: Intake and Output for Last 24 Hours 08/19/24 08/20/24 08/21/24 23:59 23:59 23:59 Intake Total 4380 / 4380 1726.67 / 1726.67 240 / 240 Output Total 1300 / 1900 1700 / 1700 1025 / 1025 Balance 3080 / 2480 26.67 / 26.67 -785 / -785 Lab / Micro Data Attestation: I reviewed the patient's lab results. 08/21/24 05:45 08/21/24 05:45 Labs: Laboratory Results - last 24 hr 08/20/24 06:19: POC Glucose 199 H 08/20/24 11:16: POC Glucose 260 H 08/20/24 16:25: POC Glucose 264 H 08/20/24 21:47: POC Glucose 216 H 08/21/24 05:45: WBC 12.6 H, RBC 4.44 L, Hgb 12.7 L, Hct 36.8 L, MCV 82.9, MCH 28.6, MCHC 34.5, RDW Std Deviation 39.0, RDW Coeff of Yesenia 12.9, Plt Count 146 L,MPV 9.5, Immature Gran % (Auto) 0.600, Neut % (Auto) 85.8 H, Lymph % (Auto) 5.8 L, [place] % (Auto) 7.6, Eos % (Auto) 0.0, Baso % (Auto) 0.2, Absolute Neuts (auto)10.8 H, Absolute Lymphs (auto) 0.73 L, Nucleated RBC % 0, Sodium 134, Potassium 4.3, Chloride 102, Carbon Dioxide 21.1, Anion Gap 11, BUN 19, Creatinine 0.90, Estim Creat Clear Calc67.40, Est GFR (MDRD) Non-Af 85, BUN/Creatinine Ratio 21.0 H, Glucose 264 H, Calcium 8.1 Micro: Microbiology 08/19/24 18:37 Sputum, Expectorated/Coughed Gram Stain - Final 08/19/24 18:37 Stool Enteric Bacteriology - Final Norovirus 08/19/24 09:35 Urine, Clean Catch Urine Culture - Preliminary Culture exhibits no growth. 08/19/24 14:42 Mucosa - Nasopharyngeal Respiratory Panel (PCR) - Final 08/19/24 15:26 Urine Catheter - Catheter Legionella Antigen - Final 08/19/24 15:26 Urine Catheter - Catheter Streptococcus pneumoniae Antigen (M- Final 08/19/24 09:01 Mucosa - Nose SARS-CoV-2, Influenza & RSV (PCR) - Final Radiography Diagnostic Testing: Radiology Impression Chest X-Ray 08/19/24 09:03 IMPRESSION: Prominent lung markings at the left lung base. Can not exclude a developing infiltrate. Elevation of the right hemidiaphragm. Reading Location: [place] [address] Physical Exam Const alert, oriented x3 and no apparent distress Constitutional Narrative: Sitting in bedside recliner. General Appearance: cooperative HEENT normocephalic, head/scalp atraumatic and moist oral mucous membranes Eyes EOMs intact bilaterally, conjunctivae normal and no scleral icterus Neck supple General: trachea midline Chest inspection of chest normal Resp normal respiratory effort and no use of accessory muscles Auscultation: Negative for rales, rhonchi or wheezes Cardio S1 normal heart sound and S2 normal heart sound Rate: tachycardic GI normal to inspection, nondistended, normoactive bowel sounds Extremity no clubbing, cyanosis or edema Skin no rashes or lesions noted Neuro CN's II-XII intact bilaterally, moves all extremities and no focal motor deficits Psych cooperative and affect normal Charges/Coding Visit Charges Inpatient E&M: 91461 Subs Hosp L2 08/21/2425 Cosigner Signature (if applicable): CC: ~ Signed [facility]04-10-2025 Progress note Author Yadira Pruett [facility] Note Date/Time August 20, 2024 2:4 7pm [facility] Medical Records Department [address] [place] [id number] Progress Note - Hospitalist 08/20/24 0659 MR#: [id number] Acct: [id number] Name: SANTOS MOREL Rep #:[id number] 31 : 1940 84 From: Yadira Pruett MD PCP: Dr. Yvan Rahman MD Status:ADM IN Location: ICU ICU01-1 Reason for Visit Reason for Visit: Diagnoses Sepsis, unspecified organism (08/19/24) Pneumonia, unspecified organism (08/19/24) Retention of urine, unspecified (08/19/24) Altered mental status, unspecified (08/19/24) Hyperglycemia, unspecified (08/19/24) Subjective Subjective Patient sitting up in bed, awake alert, reports he is a little bit short of breath and reports he has a little bit of a cough and does have some production,reports a little bit of soreness but no nausea at this time. Of note overnight reportedly patient got delirious and agitated but then this a.m. was awake and alert and oriented Objective Data Objective Data Vital Signs: Vital Signs Temp Pulse Resp BP Pulse Ox O2 Del Method O2 Flow Rate 99.8 F H 101 H 21 H 152/80 H 95 Nasal Cannula 2 08/20/24 06:00 08/20/24 06:00 08/20/24 06:00 08/20/24 06:00 08/20/24 06:00 08/20/24 06:00 08/20/24 06:00 Oxygen Flow Rate (L/min) 2 Oxygen Delivery Method Nasal Cannula Weight: 86.7 kg Body Mass Index (BMI) 26.6 Intake & Output: Intake and Output for Last 24 Hours 08/18/24 08/19/24 08/20/24 23:59 23:59 23:59 Intake Total 4380 / 4380 0 / 0 Output Total 1300 / 1900 1100 / 1100 Balance 3080 / 2480 -1100 / -1100 Lab / Micro Data 08/20/24 03:48 08/20/24 03:48 Labs: Laboratory Results - last 24 hr 08/19/24 08:42: WBC 14.5 H, RBC 5.55, Hgb 15.9, Hct 46.5, MCV 83.8, MCH 28.6, MCHC 34.2, RDW Std Deviation 38.4, RDW Coeff of Yesenia 12.6, Plt Count 220, MPV 10.0, Immature Gran % (Auto) 0.500, Neut % (Auto) 89.9 H, Lymph % (Auto) 6.2 L, [place] % (Auto) 3.0, Eos % (Auto) 0.1, Baso % (Auto) 0.3, Absolute Neuts (auto) 13.1 H, Absolute Lymphs (auto) 0.90, Nucleated RBC % 0, PT 14.7, INR 1.1, APTT 25.3, Sodium 135, Potassium 4.1, Chloride 97 L, Carbon Dioxide 15.5 L, Anion Gap23 H, BUN 22 H, Creatinine 1.18, Estim Creat Clear Calc 54.81, Est GFR (MDRD) Non-Af 62, BUN/Creatinine Ratio 18.8, Glucose 437 H, Calcium 8.8, Total Bilirubin 1.11, AST 41 H, ALT 36, Alkaline Phosphatase 71, Total Protein 7.4, Albumin 4.2, Globulin 3.2, Albumin/Globulin Ratio 1.3, Lipase 28, b-Hydroxybutyric mmol/L 1.6 08/19/24 09:16: POC Glucose 375 H 08/19/24 09:35: Urine Color Straw, Urine Clarity Clear, Urine pH 5.0, Ur Specific Howes 1.015, Urine Protein 30 H, Urine Glucose (UA) 1000 H, Urine Ketones 50 H, Urine Occult Blood 10 H, Urine Nitrite Negative, Urine Bilirubin Negative, Urine Urobilinogen Normal, Ur Leukocyte Esterase Negative, Urine RBC 0-5 SEEN, Urine WBC 0-5 SEEN, Ur Squamous Epith Cells 0 SEEN, Urine Bacteria 0 SEEN, Urine Mucus 0 SEEN 08/19/24 09:37: Lactic Acid 6.3 H* 08/19/24 13:14: POC Glucose 280 H 08/19/24 13:25: Sodium 136, Potassium 4.4, Chloride 103, Carbon Dioxide 18.1 L, Anion Gap 15, BUN 21 H, Creatinine 1.00, Estim Creat Clear Calc 60.66, Est GFR (MDRD) Non-Af 75, BUN/Creatinine Ratio 20.8 H, Glucose 303 H, Lactic Acid Cancelled 08/19/24 13:25: Lactic Acid 4.7 H*, Calcium 8.3, b-Hydroxybutyric mmol/L 1.3 08/19/24 16:13: POC Glucose 244 H 08/19/24 17:15: Sodium 136, Potassium 5.4 H, Chloride 102, Carbon Dioxide 17.0 L, Anion Gap 17 H, BUN 20 H, Creatinine 1.13, Estim Creat Clear Calc 53.68, Est GFR (MDRD) Non-Af 65, BUN/Creatinine Ratio 18.1, Glucose 270 H, Calcium 8.7, b-Hydroxybutyric mmol/L 0.7 08/19/24 18:44: POC Glucose 267 H 08/19/24 21:26: POC Glucose 203 H 08/19/24 23:50: POC Glucose 144 H 08/20/24 01:06: POC Glucose 139 H 08/20/24 03:48: WBC 13.6 H, RBC 4.64, Hgb 13.5, Hct 38.4 L, MCV 82.8, MCH 29.1, MCHC 35.2, RDW Std Deviation 39.4, RDW Coeff of Yesenia 13.1, Plt Count 156, MPV 10.1, Immature Gran % (Auto) 0.700, Neut % (Auto) 88.8 H, Lymph % (Auto) 4.0 L, [place] % (Auto) 6.3, Eos % (Auto) 0.0, Baso % (Auto) 0.2, Absolute Neuts (auto) 12.1 H, Absolute Lymphs (auto) 0.55 L, Nucleated RBC % 0, Sodium 136, Potassium 5.6 H, Chloride 104, Carbon Dioxide 19.4 L, Anion Gap 13, BUN 19, Creatinine 0.95, Estim Creat Clear Calc 63.85, Est GFR (MDRD) Non-Af 80, BUN/Creatinine Ratio 19.9, Glucose 186 H, Hemoglobin A1c 7.9, Calcium 8.4, TSH 0.069 L Micro: Microbiology 08/19/24 18:37 Stool Enteric Bacteriology - Final Norovirus 08/19/24 14:42 Mucosa - Nasopharyngeal Respiratory Panel (PCR) - Final 08/19/24 15:26 Urine Catheter - Catheter Legionella Antigen - Final 08/19/24 15:26 Urine Catheter - Catheter Streptococcus pneumoniae Antigen (M- Final 08/19/24 09:01 Mucosa - Nose SARS-CoV-2, Influenza & RSV (PCR) - Final Radiography Diagnostic Testing: Radiology Impression Chest X-Ray 08/19/24 09:03 IMPRESSION: Prominent lung markings at the left lung base. Can not exclude a developing infiltrate. Elevation of the right hemidiaphragm. Reading Location: [place] [address] Physical Exam Narrative General: Alert, oriented, no apparent distress HEENT: Atraumatic, normocephalic Eyes: Anicteric, normal conjunctiva, extraocular movements grossly intact Neck: Supple Respiratory: Somewhat diminished at the bases, slight increased respiratory effort Cardiovascular: Regular rate and rhythm GI: Not rigid, little bit distended with some generalized tenderness without rebound, guarding, rigidity Extremities: No significant pitting edema appreciated Musculoskeletal: Moving all extremities Neuro: No overt focal neurological deficits Skin: No rashes appreciated Psych: Cooperative Assessment & Plan Assessment/Plan (1) Sepsis: (2) Urinary retention: (3) Pneumonia: (4) Mental status alteration: (5) Hyperglycemia: PLAN: Plan # Sepsis suspect secondary to pneumonia complicated by norovirus infection - Patient febrile, tachycardic, tachypneic with chest x-ray suggestive of pneumonia - Additionally elevated white blood cell count and elevated lactic acid, additionally hyperglycemic above baseline -Patient additionally hypoxic when EMS arrived and had acute metabolic encephalopathy secondary to above - IV fluids per sepsis protocol - Patient to be admitted to the ICU with case making machine operator consult - Blood and urine culture sent, you did not appear overtly infectious at this time however - Patient will be covered for pneumonia, given penicillin allergy will avoid penicillins -DuoNebs and as needed albuterol -Sputum culture, COVID negative, respiratory panel ordered -Urine antigens -Mucinex, I/S - Broad-spectrum antibiotics given significance of illness -08/20: Patient's stool positive for norovirus, unsure if this explains entire clinical picture or if illness has been complicated by secondary bacterial infection. Patient presently on IV fluids and being monitored in the ICU on antibiotics, can likely de-escalate antibiotics if cultures remain negative # Hypoxia -suspect secondary to pneumonia and sepsis -Patient presently on 2 L O2, is tachypneic but to some extent suspect this is presently due to his acidosis -Will monitor closely -08/20: This is improving, had been on room air, presently on 2 L of nasal cannula but overall respiratory status improved from presentation # Type 2 diabetes with significant hyperglycemia -Serum glucose in ED initially 473 with an anion gap of 22 however patient also has a lactic of 6.3 so difficult to tell how much gap has been affected - Does have urine ketones however and does have an increase in beta hydroxybutyrate - Will give dose of IV insulin and schedule every 4 glucose checks with high correction factor, if this does not improve and beta hydroxybutyrate does not improve may need to make n.p.o. and have DKA protocol -Aggressive fluid hydration - Glucose checks -I's and O's -A1c in the a.m. 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 -Continue home medications, patient with Suárez due to urinary retention - 750 out after Suárez placement #Hypothyroidism -Continue Synthroid #GERD -Continue PPI #Hypertension - Given patient's acute illness we will hold home antihypertensives and add backas tolerated #DVT ppx: Lovenox subcu Yadira Pruett MD Time spent in the patient's overall evaluation,decision-making process, review of diagnostic data, adjustment of management, discussion with other providers, nursing nursing and ancillary staff involved in patient's care documentation, 39minutes Charges/Coding Visit Charges Inpatient E&M: 57300 Subs Hosp L2 08/20/24 1447 <Electronically signed by Yadira Pruett MD> Cosigner Signature (if applicable): CC: ~ Signed [facility] Work Phone: [phone]) 887-199004-10-2025 Progress note [facility] Medical Records Department [address] [place] [address] Progress Note - Hospitalist 08/20/24 0659 MR#: [id number] Acct: [id number] Name: SANTOS MOREL Rep #:[id number] 31 : 1940 84 From: Yadira Pruett MD PCP: Dr. Yvan Rahman MD Status:ADM IN Location: ICU ICU01-1 Reason for Visit Reason for Visit: Diagnoses Sepsis, unspecified organism (08/19/24) Pneumonia, unspecified organism (08/19/24) Retention of urine, unspecified (08/19/24) Altered mental status, unspecified (08/19/24) Hyperglycemia, unspecified (08/19/24) Subjective Subjective Patient sitting up in bed, awake alert, reports he is a little bit short of breath and reports he has a little bit of a cough and does have some production,reports a little bit of soreness but no nausea at this time. Of note overnight reportedly patient got delirious and agitated but then this a.m.was awake and alert and oriented Objective Data Objective Data Vital Signs: Vital Signs Temp Pulse Resp BP Pulse Ox O2 Del Method O2 Flow Rate 99.8 F H 101 H 21 H 152/80 H 95 Nasal Cannula 2 08/20/24 06:00 08/20/24 06:00 08/20/24 06:00 08/20/24 06:00 08/20/24 06:00 08/20/24 06:00 08/20/24 06:00 Oxygen Flow Rate (L/min) 2 Oxygen Delivery Method Nasal Cannula Weight: 86.7 kg Body Mass Index (BMI) 26.6 Intake & Output: Intake and Output for Last 24 Hours 08/18/24 08/19/24 08/20/24 23:59 23:59 23:59 Intake Total 4380 / 4380 0 / 0 Output Total 1300 / 1900 1100 / 1100 Balance 3080 / 2480 -1100 / -1100 Lab / Micro Data 08/20/24 03:48 08/20/24 03:48 Labs: Laboratory Results - last 24 hr 08/19/24 08:42: WBC 14.5 H, RBC 5.55, Hgb 15.9, Hct 46.5, MCV 83.8, MCH 28.6, MCHC 34.2, RDW Std Deviation 38.4, RDW Coeff of Yesenia 12.6, Plt Count 220, MPV 10.0, Immature Gran % (Auto) 0.500, Neut % (Auto) 89.9 H, Lymph % (Auto) 6.2 L, [place] % (Auto) 3.0, Eos % (Auto) 0.1, Baso % (Auto) 0.3, AbsoluteNeuts (auto) 13.1 H, Absolute Lymphs (auto) 0.90, Nucleated RBC % 0, PT 14.7, INR 1.1, APTT 25.3, Sodium 135, Potassium 4.1, Chloride 97 L, Carbon Dioxide 15.5 L, Anion Gap23 H, BUN 22 H, Creatinine 1.18, Estim Creat Clear Calc 54.81, Est GFR (MDRD) Non-Af 62, BUN/Creatinine Ratio 18.8, Glucose 437H, Calcium 8.8, Total Bilirubin 1.11, AST 41 H, ALT 36, Alkaline Phosphatase 71, Total Protein 7.4,Albumin 4.2, Globulin 3.2, Albumin/Globulin Ratio 1.3, Lipase 28, b-Hydroxybutyric mmol/L 1.6 08/19/24 09:16: POC Glucose 375 H 08/19/24 09:35: Urine Color Straw, Urine Clarity Clear, Urine pH 5.0, Ur Specific Howes 1.015, Urine Protein 30 H, Urine Glucose (UA) 1000 H, Urine Ketones 50 H, Urine Occult Blood 10 H, Urine Nitrite Negative, Urine Bilirubin Negative, Urine Urobilinogen Normal, Ur Leukocyte Esterase Negative, Urine RBC 0-5 SEEN, Urine WBC 0-5 SEEN, Ur Squamous Epith Cells 0 SEEN, Urine Bacteria 0 SEEN, Urine Mucus 0 SEEN 08/19/24 09:37: Lactic Acid 6.3 H* 08/19/24 13:14: POC Glucose 280 H 08/19/24 13:25: Sodium 136, Potassium 4.4, Chloride 103, Carbon Dioxide 18.1 L, Anion Gap 15, BUN 21 H, Creatinine 1.00, Estim Creat Clear Calc 60.66, Est GFR (MDRD) Non-Af 75, BUN/Creatinine Ratio 20.8 H, Glucose 303 H, Lactic Acid Cancelled 08/19/24 13:25: Lactic Acid 4.7 H*, Calcium 8.3, b-Hydroxybutyric mmol/L 1.3 08/19/24 16:13: POC Glucose 244 H 08/19/24 17:15: Sodium 136, Potassium 5.4 H, Chloride 102, Carbon Dioxide 17.0 L, Anion Gap 17 H, BUN 20 H, Creatinine 1.13, Estim Creat Clear Calc 53.68, Est GFR (MDRD) Non-Af 65, BUN/Creatinine Ratio 18.1, Glucose 270 H, Calcium 8.7, b- Hydroxybutyric mmol/L 0.7 08/19/24 18:44: POC Glucose 267 H 08/19/24 21:26: POC Glucose 203 H 08/19/24 23:50: POC Glucose 144 H 08/20/24 01:06: POC Glucose 139 H 08/20/24 03:48: WBC 13.6 H, RBC 4.64, Hgb 13.5, Hct 38.4 L, MCV 82.8, MCH 29.1, MCHC 35.2, RDW Std Deviation 39.4, RDW Coeff of Yesenia 13.1, Plt Count 156, MPV 10.1, Immature Gran % (Auto) 0.700, Neut %(Auto) 88.8 H, Lymph % (Auto) 4.0 L, Coamo % (Auto) 6.3, Eos % (Auto) 0.0, Baso % (Auto) 0.2, Absolute Neuts (auto) 12.1 H, Absolute Lymphs (auto) 0.55 L, Nucleated RBC % 0, Sodium 136, Potassium 5.6 H, Chloride 104, Carbon Dioxide 19.4 L, Anion Gap 13, BUN 19, Creatinine 0.95, Estim Creat Clear Calc 63.85, Est GFR (MDRD) Non-Af 80, BUN/Creatinine Ratio 19.9, Glucose 186 H, Hemoglobin A1c 7.9, Calcium 8.4, TSH 0.069 L Micro: Microbiology 08/19/24 18:37 Stool Enteric Bacteriology - Final Norovirus 08/19/24 14:42 Mucosa - Nasopharyngeal Respiratory Panel (PCR) - Final 08/19/24 15:26 Urine Catheter - Catheter Legionella Antigen - Final 08/19/24 15:26 Urine Catheter - Catheter Streptococcus pneumoniae Antigen (M- Final 08/19/24 09:01 Mucosa - Nose SARS-CoV-2, Influenza & RSV (PCR) - Final Radiography Diagnostic Testing: Radiology Impression Chest X-Ray 08/19/24 09:03 IMPRESSION: Prominent lung markings at the left lung base. Can not exclude a developing infiltrate. Elevation of the right hemidiaphragm. Reading Location: [place] [address] Physical Exam Narrative General: Alert, oriented, no apparent distress HEENT: Atraumatic, normocephalic Eyes: Anicteric, normal conjunctiva, extraocular movements grossly intact Neck: Supple Respiratory: Somewhat diminished at the bases, slight increased respiratory effort Cardiovascular: Regular rate and rhythm GI: Not rigid, little bit distended with some generalized tenderness without rebound, guarding, rigidity Extremities: No significant pitting edema appreciated Musculoskeletal: Moving all extremities Neuro: No overt focal neurological deficits Skin: No rashes appreciated Psych: Cooperative Assessment & Plan Assessment/Plan (1) Sepsis: (2) Urinary retention: (3) Pneumonia: (4) Mental status alteration: (5) Hyperglycemia: PLAN: Plan # Sepsis suspect secondary to pneumonia complicated by norovirus infection - Patient febrile, tachycardic, tachypneic with chest x-ray suggestive of pneumonia - Additionally elevated white blood cell count and elevated lactic acid, additionally hyperglycemicabove baseline -Patient additionally hypoxic when EMS arrived and had acute metabolic encephalopathy secondary to above - IV fluids per sepsis protocol - Patient to be admitted to the ICU with case making machine operator consult - Blood and urine culture sent, you did not appear overtly infectious at this time however - Patient will be covered for pneumonia, given penicillin allergy will avoid penicillins -DuoNebs and as needed albuterol -Sputum culture, COVID negative, respiratory panel ordered -Urine antigens -Mucinex, I/S - Broad-spectrum antibiotics given significance of illness -08/20: Patient's stool positive for norovirus, unsure if this explains entire clinical picture or if illness has been complicated by secondary bacterial infection. Patient presently on IV fluids and being monitored in the ICU on antibiotics, can likely de-escalate antibiotics if cultures remain negative # Hypoxia -suspect secondary to pneumonia and sepsis -Patient presently on 2 L O2, is tachypneic but to some extent suspect this is presently due to hisacidosis -Will monitor closely -08/20: This is improving, had been on room air, presently on 2 L of nasal cannula but overall respiratory status improved from presentation # Type 2 diabetes with significant hyperglycemia -Serum glucose in ED initially 473 with an anion gap of 22 however patient also has a lactic of 6.3so difficult to tell how much gap has been affected - Does have urine ketones however and does have an increase in beta hydroxybutyrate - Will give dose of IV insulin and schedule every 4 glucose checks with high correction factor, if this does not improve and beta hydroxybutyrate does not improve may need to make n.p.o. and have DKAprotocol -Aggressive fluid hydration - Glucose checks -I's and O's -A1c in the a.m. 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 -Continue home medications, patient with Suárez due to urinary retention - 750 out after Suárez placement #Hypothyroidism -Continue Synthroid #GERD -Continue PPI #Hypertension - Given patient's acute illness we will hold home antihypertensives and add backas tolerated #DVT ppx: Lovenox subcu Yadira Pruett MD Time spent in the patient's overall evaluation,decision-making process, review of diagnostic data, adjustment of management, discussion with other providers, nursing nursing and ancillary staff involved in patient's care documentation, 39minutes Charges/Coding Visit Charges Inpatient E&M: 11064 Subs Hosp L2 08/20/24 1447 Cosigner Signature (if applicable): CC: ~ Signed [facility]04-10-2025 Progress note Author Case Paredes [facility] Note Date/Time August 20, 2024 9:3 7am [facility] Medical Records Department [address] [place] [address] Progress Note - Electro Plater 08/20/24 0738 MR#: [id number] Acct: [id number] Name: SANTOS MOREL Rep #:[id number] : 1940 84 From: Case Paredes DO PCP: Dr. Yvan Rahman MD Status:ADM IN Location: ICU ICU01-1 Assessment & Plan Assessment/Plan (1) Sepsis: PLAN: Plan RECOMMENDATIONS: 1. Continue empiric antibiotics, pending culture results. 2. Encourage incentive spirometer use and mobilize patient as tolerated. 3. Continue appropriate DVT prophylaxis. IMPRESSIONS: 1. Sepsis The patient presented with sepsis due probable gastroenteritis related to norovirus. Although pneumonia was a potential concern, the patient's chest imaging looks less convincing for infection, from my perspective. The patient had evidence of sepsis related organ dysfunction as evidenced by lactic acidemia, likely related to hypovolemia. The patient's clinical state has improved with volume expansion and empiric antimicrobials. Recommend continuingsupportive care. If cultures are negative, antibiotics can be discontinued. 2. Remote history of lung CA/BPH/hypothyroidism/GERD/hypertension/diabetes mellitus Complicates care, management, recovery and prognosis. Continue home medicationsas indicated. Continue sliding scale insulin coverage ACHS, as ordered. This note was generated with [employer] dictation software. It may contain incorrectwords, spelling, and punctuation that were not noted in checking the note beforesigning. Subjective Subjective The patient was seen and examined at the bedside this morning. Events from the last 24 hours have been reviewed. The patient currently has a low-grade fever but remains otherwise hemodynamically stable on 2 L/min via nasal cannula. The patient is documented to be overall net +2 L for the hospitalization. White blood cell count is elevated at 13,000. Potassium is elevated at 5.6. Creatinine is within normal limits. The patient is sitting upright in the bedside recliner eating breakfast. He reports feeling much better than he did yesterday. Objective Data Objective Data The patient's most recent lab work, culture data and imaging studies have all been personally reviewed. Enteric panel was positive for norovirus. Strep and urine Legionella antigens were negative. Blood and urine cultures are pending. Vital Signs: Vital Signs Temp Pulse Resp BP Pulse Ox O2 Del Method O2 Flow Rate 99.8 F H 111 H 18 162/97 H 95 Nasal Cannula 2 08/20/24 06:00 08/20/24 07:15 08/20/24 07:15 08/20/24 07:00 08/20/24 07:15 08/20/24 07:15 08/20/24 07:15 Oxygen Flow Rate (L/min) 2 Oxygen Delivery Method Nasal Cannula Weight: 191 lb 2.252 oz Body Mass Index (BMI) 26.6 Intake & Output: Intake and Output for Last 24 Hours 08/18/24 08/19/24 08/20/24 23:59 23:59 23:59 Intake Total 4380 / 4380 0 / 0 Output Total 1300 / 1900 1100 / 1100 Balance 3080 / 2480 -1100 / -1100 Lab / Micro Data Attestation: I reviewed the patient's lab results. 08/20/24 03:48 08/20/24 03:48 Labs: Laboratory Results - last 24 hr 08/19/24 08:42: WBC 14.5 H, RBC 5.55, Hgb 15.9, Hct 46.5, MCV 83.8, MCH 28.6, MCHC 34.2, RDW Std Deviation 38.4, RDW Coeff of Yesenia 12.6, Plt Count 220, MPV 10.0, Immature Gran % (Auto) 0.500, Neut % (Auto) 89.9 H, Lymph % (Auto) 6.2 L, [place] % (Auto) 3.0, Eos % (Auto) 0.1, Baso % (Auto) 0.3, Absolute Neuts (auto) 13.1 H, Absolute Lymphs (auto) 0.90, Nucleated RBC % 0, PT 14.7, INR 1.1, APTT 25.3, Sodium 135, Potassium 4.1, Chloride 97 L, Carbon Dioxide 15.5 L, Anion Gap23 H, BUN 22 H, Creatinine 1.18, Estim Creat Clear Calc 54.81, Est GFR (MDRD) Non-Af 62, BUN/Creatinine Ratio 18.8, Glucose 437 H, Calcium 8.8, Total Bilirubin 1.11, AST 41 H, ALT 36, Alkaline Phosphatase 71, Total Protein 7.4, Albumin 4.2, Globulin 3.2, Albumin/Globulin Ratio 1.3, Lipase 28, b-Hydroxybutyric mmol/L 1.6 08/19/24 09:16: POC Glucose 375 H 08/19/24 09:35: Urine Color Straw, Urine Clarity Clear, Urine pH 5.0, Ur Specific Howes 1.015, Urine Protein 30 H, Urine Glucose (UA) 1000 H, Urine Ketones 50 H, Urine Occult Blood 10 H, Urine Nitrite Negative, Urine Bilirubin Negative, Urine Urobilinogen Normal, Ur Leukocyte Esterase Negative, Urine RBC 0-5 SEEN, Urine WBC 0-5 SEEN, Ur Squamous Epith Cells 0 SEEN, Urine Bacteria 0 SEEN, Urine Mucus 0 SEEN 08/19/24 09:37: Lactic Acid 6.3 H* 08/19/24 13:14: POC Glucose 280 H 08/19/24 13:25: Sodium 136, Potassium 4.4, Chloride 103, Carbon Dioxide 18.1 L, Anion Gap 15, BUN 21 H, Creatinine 1.00, Estim Creat Clear Calc 60.66, Est GFR (MDRD) Non-Af 75, BUN/Creatinine Ratio 20.8 H, Glucose 303 H, Lactic Acid Cancelled 08/19/24 13:25: Lactic Acid 4.7 H*, Calcium 8.3, b-Hydroxybutyric mmol/L 1.3 08/19/24 16:13: POC Glucose 244 H 08/19/24 17:15: Sodium 136, Potassium 5.4 H, Chloride 102, Carbon Dioxide 17.0 L, Anion Gap 17 H, BUN 20 H, Creatinine 1.13, Estim Creat Clear Calc 53.68, Est GFR (MDRD) Non-Af 65, BUN/Creatinine Ratio 18.1, Glucose 270 H, Calcium 8.7, b-Hydroxybutyric mmol/L 0.7 08/19/24 18:44: POC Glucose 267 H 08/19/24 21:26: POC Glucose 203 H 08/19/24 23:50: POC Glucose 144 H 08/20/24 01:06: POC Glucose 139 H 08/20/24 03:48: WBC 13.6 H, RBC 4.64, Hgb 13.5, Hct 38.4 L, MCV 82.8, MCH 29.1, MCHC 35.2, RDW Std Deviation 39.4, RDW Coeff of Yesenia 13.1, Plt Count 156, MPV 10.1, Immature Gran % (Auto) 0.700, Neut % (Auto) 88.8 H, Lymph % (Auto) 4.0 L, [place] % (Auto) 6.3, Eos % (Auto) 0.0, Baso % (Auto) 0.2, Absolute Neuts (auto) 12.1 H, Absolute Lymphs (auto) 0.55 L, Nucleated RBC % 0, Sodium 136, Potassium 5.6 H, Chloride 104, Carbon Dioxide 19.4 L, Anion Gap 13, BUN 19, Creatinine 0.95, Estim Creat Clear Calc 63.85, Est GFR (MDRD) Non-Af 80, BUN/Creatinine Ratio 19.9, Glucose 186 H, Hemoglobin A1c 7.9, Calcium 8.4, TSH 0.069 L Micro: Microbiology 08/19/24 18:37 Stool Enteric Bacteriology - Final Norovirus 08/19/24 14:42 Mucosa - Nasopharyngeal Respiratory Panel (PCR) - Final 08/19/24 15:26 Urine Catheter - Catheter Legionella Antigen - Final 08/19/24 15:26 Urine Catheter - Catheter Streptococcus pneumoniae Antigen (M- Final 08/19/24 09:01 Mucosa - Nose SARS-CoV-2, Influenza & RSV (PCR) - Final Radiography Diagnostic Testing: Radiology Impression Chest X-Ray 08/19/24 09:03 IMPRESSION: Prominent lung markings at the left lung base. Can not exclude a developing infiltrate. Elevation of the right hemidiaphragm. Reading Location: [place] [address] Physical Exam Const alert, oriented x3 and no apparent distress Constitutional Narrative: Sitting in bedside recliner. General Appearance: cooperative HEENT normocephalic, head/scalp atraumatic and moist oral mucous membranes Eyes EOMs intact bilaterally, conjunctivae normal and no scleral icterus Neck supple General: trachea midline Chest inspection of chest normal Resp normal respiratory effort and no use of accessory muscles Auscultation: Negative for rales, rhonchi or wheezes Cardio S1 normal heart sound and S2 normal heart sound Rate: tachycardic GI normal to inspection, nondistended, normoactive bowel sounds Extremity no clubbing, cyanosis or edema Skin no rashes or lesions noted Neuro CN's II-XII intact bilaterally, moves all extremities and no focal motor deficits Psych cooperative and affect normal Charges/Coding Visit Charges Inpatient E&M: 02743 Subs Hosp L2 08/20/24 0937 <Electronically signed by Case Paredes DO> Cosigner Signature (if applicable): CC: ~ Signed [facility] Work Phone: 1(400) 656-342104-10-2025 Progress note [facility] Medical Records Department [address] [place] [address] Progress Note - Electro Plater 08/20/24 0738 MR#: [id number] Acct: [id number] Name: SANTOS MOREL Kareem Rep #:[id number] : 1940 84 From: Case Paredes DO PCP: Dr. Yvan Rahman MD Status:ADM IN Location: ICU ICU01-1 Assessment & Plan Assessment/Plan (1) Sepsis: PLAN: Plan RECOMMENDATIONS: 1. Continue empiric antibiotics, pending culture results. 2. Encourage incentive spirometer use and mobilize patient as tolerated. 3. Continue appropriate DVT prophylaxis. IMPRESSIONS: 1. Sepsis The patient presented with sepsis due probable gastroenteritis related to norovirus. Although pneumonia was a potential concern, the patient's chest imaging looks less convincing for infection, from my perspective. The patient had evidence of sepsis related organ dysfunction as evidenced by lactic a cidemia, likely related to hypovolemia. The patient's clinical state has improved with volume expansion and empiric antimicrobials. Recommend continuingsupportive care. If cultures are negative, antibiotics can be discontinued. 2. Remote history of lung CA/BPH/hypothyroidism/GERD/hypertension/diabetes mellitus Complicates care, management, recovery and prognosis. Continue home medicationsas indicated. Continue sliding scale insulin coverage ACHS, as ordered. This note was generated with [employer] dictation software. It may contain incorrectwords, spelling, and punctuation that were not noted in checking the note beforesigning. Subjective Subjective The patient was seen and examined at the bedside this morning. Events from the last 24 hours have been reviewed. The patient currently has a low-grade fever but remains otherwise hemodynamically stable on 2 L/min via nasal cannula. The patient is documented to be overall net +2 L for the hospitalization. White blood cell count is elevated at 13,000. Potassium is elevated at 5.6. Creatinine is within normal limits. The patient is sitting upright in the bedside recliner eating breakfast. He reports feeling much better than he did yesterday. Objective Data Objective Data The patient's most recent lab work, culture data and imaging studies have all been personally reviewed. Enteric panel was positive for norovirus. Strep and urine Legionella antigens were negative. Blood and urine cultures are pending. Vital Signs: Vital Signs Temp Pulse Resp BP Pulse Ox O2 Del Method O2 Flow Rate 99.8 F H 111 H 18 162/97 H 95 Nasal Cannula 2 08/20/24 06:00 08/20/24 07:15 08/20/24 07:15 08/20/24 07:00 08/20/24 07:15 08/20/24 07:15 08/20/24 07:15 Oxygen Flow Rate (L/min) 2 Oxygen Delivery Method Nasal Cannula Weight: 191 lb 2.252 oz Body Mass Index (BMI) 26.6 Intake & Output: Intake and Output for Last 24 Hours 04/01/0408/19/24 08/20/24 23:59 23:59 23:59 Intake Total 4380 / 4380 0 / 0 Output Total 1300 / 1900 1100 / 1100 Balance 3080 / 2480 -1100 / -1100 Lab / Micro Data Attestation: I reviewed the patient's lab results. 08/20/24 03:48 08/20/24 03:48 Labs: Laboratory Results - last 24 hr 08/19/24 08:42: WBC 14.5 H, RBC 5.55, Hgb 15.9, Hct 46.5, MCV 83.8, MCH 28.6, MCHC 34.2, RDW Std Deviation 38.4, RDW Coeff of Yesenia 12.6, Plt Count 220, MPV 10.0, Immature Gran % (Auto) 0.500, Neut % (Auto) 89.9 H, Lymph % (Auto) 6.2 L, [place] % (Auto) 3.0, Eos % (Auto) 0.1, Baso % (Auto) 0.3, AbsoluteNeuts (auto) 13.1 H, Absolute Lymphs (auto) 0.90, Nucleated RBC % 0, PT 14.7, INR 1.1, APTT 25.3, Sodium 135, Potassium 4.1, Chloride 97 L, Carbon Dioxide 15.5 L, Anion Gap23 H, BUN 22 H, Creatinine 1.18, Estim Creat Clear Calc 54.81, Est GFR (MDRD) Non-Af 62, BUN/Creatinine Ratio 18.8, Glucose 437H, Calcium 8.8, Total Bilirubin 1.11, AST 41 H, ALT 36, Alkaline Phosphatase 71, Total Protein 7.4,Albumin 4.2, Globulin 3.2, Albumin/Globulin Ratio 1.3, Lipase 28, b-Hydroxybutyric mmol/L 1.6 08/19/24 09:16: POC Glucose 375 H 08/19/24 09:35: Urine Color Straw, Urine Clarity Clear, Urine pH 5.0, Ur Specific Howes 1.015, Urine Protein 30 H, Urine Glucose (UA) 1000 H, Urine Ketones 50 H, Urine Occult Blood 10 H, Urine Nitrite Negative, Urine Bilirubin Negative, Urine Urobilinogen Normal, Ur Leukocyte Esterase Negative, Urine RBC 0-5 SEEN, Urine WBC 0-5 SEEN, Ur Squamous Epith Cells 0 SEEN, Urine Bacteria 0 SEEN, Urine Mucus 0 SEEN 08/19/24 09:37: Lactic Acid 6.3 H* 08/19/24 13:14: POC Glucose 280 H 08/19/24 13:25: Sodium 136, Potassium 4.4, Chloride 103, Carbon Dioxide 18.1 L, Anion Gap 15, BUN 21 H, Creatinine 1.00, Estim Creat Clear Calc 60.66, Est GFR (MDRD) Non-Af 75, BUN/Creatinine Ratio 20.8 H, Glucose 303 H, Lactic Acid Cancelled 08/19/24 13:25: Lactic Acid 4.7 H*, Calcium 8.3, b-Hydroxybutyric mmol/L 1.3 08/19/24 16:13: POC Glucose 244 H 08/19/24 17:15: Sodium 136, Potassium 5.4 H, Chloride 102, Carbon Dioxide 17.0 L, Anion Gap 17 H, BUN 20 H, Creatinine 1.13, Estim Creat Clear Calc 53.68, Est GFR (MDRD) Non-Af 65, BUN/Creatinine Ratio 18.1, Glucose 270 H, Calcium 8.7, b- Hydroxybutyric mmol/L 0.7 08/19/24 18:44: POC Glucose 267 H 08/19/24 21:26: POC Glucose 203 H 08/19/24 23:50: POC Glucose 144 H 08/20/24 01:06: POC Glucose 139 H 08/20/24 03:48: WBC 13.6 H, RBC 4.64, Hgb 13.5, Hct 38.4 L, MCV 82.8, MCH 29.1, MCHC 35.2, RDW Std Deviation 39.4, RDW Coeff of Yesenia 13.1, Plt Count 156, MPV 10.1, Immature Gran % (Auto) 0.700, Neut %(Auto) 88.8 H, Lymph % (Auto) 4.0 L, [place] % (Auto) 6.3, Eos % (Auto) 0.0, Baso % (Auto) 0.2, Absolute Neuts (auto) 12.1 H, Absolute Lymphs (auto) 0.55 L, Nucleated RBC % 0, Sodium 136, Potassium 5.6 H, Chloride 104, Carbon Dioxide 19.4 L, Anion Gap 13, BUN 19, Creatinine 0.95, Estim Creat Clear Calc 63.85, Est GFR (MDRD) Non-Af 80, BUN/Creatinine Ratio 19.9, Glucose 186 H, Hemoglobin A1c 7.9, Calcium 8.4, TSH 0.069 L Micro: Microbiology 08/19/24 18:37 Stool Enteric Bacteriology - Final Norovirus 08/19/24 14:42 Mucosa - Nasopharyngeal Respiratory Panel (PCR) - Final 08/19/24 15:26 Urine Catheter - Catheter Legionella Antigen - Final 08/19/24 15:26 Urine Catheter - Catheter Streptococcus pneumoniae Antigen (M- Final 08/19/24 09:01 Mucosa - Nose SARS-CoV-2, Influenza & RSV (PCR) - Final Radiography Diagnostic Testing: Radiology Impression Chest X-Ray 08/19/24 09:03 IMPRESSION: Prominent lung markings at the left lung base. Can not exclude a developing infiltrate. Elevation of the right hemidiaphragm. Reading Location: [place] [address] Physical Exam Const alert, oriented x3 and no apparent distress Constitutional Narrative: Sitting in bedside recliner. General Appearance: cooperative HEENT normocephalic, head/scalp atraumatic and moist oral mucous membranes Eyes EOMs intact bilaterally, conjunctivae normal and no scleral icterus Neck supple General: trachea midline Chest inspection of chest normal Resp normal respiratory effort and no use of accessory muscles Auscultation: Negative for rales, rhonchi or wheezes Cardio S1 normal heart sound and S2 normal heart sound Rate: tachycardic GI normal to inspection, nondistended, normoactive bowel sounds Extremity no clubbing, cyanosis or edema Skin no rashes or lesions noted Neuro CN's II-XII intact bilaterally, moves all extremities and no focal motor deficits Psych cooperative and affect normal Charges/Coding Visit Charges Inpatient E&M: 14120 Subs Hosp L2 08/20/24 0937 Cosigner Signature (if applicable): CC: ~ Signed [facility]04-10-2025 Consult note Author Case Paredes [facility] Note Date/Time August 20, 2024 5:4 7am [facility] Medical Records Department [address] [place] [address] Consultation - Electro Plater 08/19/24 1327 MR#: [id number] Acct: [id number] Name: SANTOS MOREL Rep #:[id number] : 1940 84 From: Case Paredes DO PCP: Dr. Yvan Rahman MD Status:ADM IN Location: ICU ICU01-1 Assessment & Plan Assessment/Plan (1) Sepsis: PLAN: Plan RECOMMENDATIONS: 1. Continue empiric antibiotics. 2. Agree with rechecking beta hydroxybutyrate level. 3. If lactic acidemia improves but anion gap remains elevated with increased beta hydroxybutyrate, recommend insulin drip. 4. Continuous IV fluids as ordered. 5. Continue appropriate DVT prophylaxis. 6. Check enteric pathogen panel. IMPRESSIONS: 1. Sepsis The patient presented with sepsis due to possible pneumonia (less likely) versusGI source (gastroenteritis) with acute sepsis related organ dysfunction as evidenced by lactic acidemia. The patient has been initiated on antimicrobial therapy along with supplemental IV fluid hydration. He remains hemodynamically stable at the present time. Will plan to check an enteric pathogen panel, if the patient continues to have diarrhea. Otherwise, continue current supportive care. 2. Hyperglycemia The patient presented with hyperglycemia with an increased anion gap and metabolic acidosis, concerning for DKA. Accordingly, recommend rechecking beta hydroxybutyrate level. If the patient's lactic acidemia improves but anion gap remains elevated with increased beta hydroxybutyrate level, I would recommend initiating a continuous insulin infusion, and starting DKA protocol. 3. Remote history of lung CA/BPH/hypothyroidism/GERD/hypertension Complicates care, management, recovery and prognosis. Continue home medicationsas indicated. Remainder of supportive care as noted above. This note was generated with [employer] dictation software. It may contain incorrectwords, spelling, and punctuation that were not noted in checking the note beforesigning. HPI Consult Data Date of Consult: 08/20/24 HPI Narrative Reason for Consultation: Sepsis HPI Narrative: The patient is an 84-year-old male, with a history as outlined below, who presented to the emergency department on August 19 with nausea, vomiting and diarrhea of approximately 48 hours duration. The patient reported that he initially became ill after eating breakfast yesterday with some friends. His symptoms initially began with nausea and vomiting and then he developed some diarrhea overnight. He does report limited p.o. intake during the aforementioned time. The patient has a remote history of lung CA approximately 10 years ago status post lobectomy along with diabetes mellitus and hypertension. On presentation to the emergency department, the patient was noted to be febrile, tachycardic tachypneic. The patient was hypertensive, but maintaining appropriate oxygen saturations on room air. Laboratory evaluation was notable for a white blood cell count of 14,000. Coagulation profile was within normal limits. Chemistry profile was notable for an anion gap of 23 with a creatinine of 1.18. Glucose was elevated at 437. Lactate was increased to 6.3. Lipase was within normal limits. Beta hydroxybutyrate level was elevated at 1.6. Chest x-ray, on my review, did not reveal a focal infiltrate or consolidation. Blood and urine cultures were collected. The patient was started on supplemental IV fluids and antimicrobials. He was subsequently admitted to the medical intensive care unit. [facility] Medical History (Updated 08/19/24 @ 12:50 by Anita Poe) Kidney stones Non-smoker HTN (hypertension) Lung cancer Diabetes Home Medications ?Medication ?Instructions ?Recorded ?Last Taken ?Type glimepiride 2 mg tablet 2 mg PO BID 07/22/13 5 History aspirin 81 mg tablet,delayed 81 mg PO DAILY 08/19/24 0 08/18/24 History release (Adult Aspirin Regimen) cholecalciferol (vitamin D3) 50 50 mcg PO DAILY 08/18/24 History mcg (2,000 unit) capsule levothyroxine 175 mcg tablet 175 mcg PO DAILY 08/19/24 08/18/24 History (Synthroid) losartan 100 mg tablet 100 mg PO DAILY 08/19/2401/04 History omeprazole 20 mg capsule,delayed 20 mg PO DAILY 08/18/24 History release pioglitazone 30 mg tablet 30 mg PO DAILY 08/19/2401/04 History pravastatin 40 mg tablet 40 mg PO DAILY 08/19/2401/04 History sitagliptin phos 100 mg-metformin 1 tab PO DAILY 08/1908/18/24 History ER 1,000 mg tablet,extend rel 24h mp (Janumet XR) tamsulosin 0.4 mg capsule 0.4 mg PO BID 08/19/2408/18 History Allergy/AdvReac Type Severity Reaction Status Date / Time Penicillins Allergy Swelling Verified 08/19/24 08:58 Surgical History (Updated 08/19/24 @ 09:18 by Luis Armando King) S/P lobectomy of lung Social History Smoking Status: Never smoker ROS ROS Narrative 10 systems were reviewed with pertinent positives as noted in the HPI above. Physical Exam Const alert and no apparent distress Constitutional Narrative: is present at the bedside. General Appearance: cooperative and ill appearing HEENT normocephalic and head/scalp atraumatic Eyes EOMs intact bilaterally, conjunctivae normal and no scleral icterus Neck supple General: trachea midline Chest inspection of chest normal Resp normal respiratory effort Effort and Inspection: tachypneic Auscultation: rales Cardio S1 normal heart sound and S2 normal heart sound Rate: tachycardic GI normal to inspection, nondistended, normoactive bowel sounds Extremity no clubbing, cyanosis or edema Skin no rashes or lesions noted Neuro CN's II-XII intact bilaterally, moves all extremities and no focal motor deficits Psych cooperative and affect normal Lab / Micro Data 08/20/24 03:48 08/20/24 03:48 Labs: Laboratory Results - last 24 hr 08/19/24 08:42: WBC 14.5 H, RBC 5.55, Hgb 15.9, Hct 46.5, MCV 83.8, MCH 28.6, MCHC 34.2, RDW Std Deviation 38.4, RDW Coeff of Yesenia 12.6, Plt Count 220, MPV 10.0, Immature Gran % (Auto) 0.500, Neut % (Auto) 89.9 H, Lymph % (Auto) 6.2 L, Coamo % (Auto) 3.0, Eos % (Auto) 0.1, Baso % (Auto) 0.3, Absolute Neuts (auto) 13.1 H, Absolute Lymphs (auto) 0.90, Nucleated RBC % 0, PT 14.7, INR 1.1, APTT 25.3, Sodium 135, Potassium 4.1, Chloride 97 L, Carbon Dioxide 15.5 L, Anion Gap23 H, BUN 22 H, Creatinine 1.18, Estim Creat Clear Calc 54.81, Est GFR (MDRD) Non-Af 62, BUN/Creatinine Ratio 18.8, Glucose 437 H, Calcium 8.8, Total Bilirubin 1.11, AST 41 H, ALT 36, Alkaline Phosphatase 71, Total Protein 7.4, Albumin 4.2, Globulin 3.2, Albumin/Globulin Ratio 1.3, Lipase 28, b-Hydroxybutyric mmol/L 1.6 08/19/24 09:16: POC Glucose 375 H 08/19/24 09:35: Urine Color Straw, Urine Clarity Clear, Urine pH 5.0, Ur Specific Howes 1.015, Urine Protein 30 H, Urine Glucose (UA) 1000 H, Urine Ketones 50 H, Urine Occult Blood 10 H, Urine Nitrite Negative, Urine Bilirubin Negative, Urine Urobilinogen Normal, Ur Leukocyte Esterase Negative, Urine RBC 0-5 SEEN, Urine WBC 0-5 SEEN, Ur Squamous Epith Cells 0 SEEN, Urine Bacteria 0 SEEN, Urine Mucus 0 SEEN 08/19/24 09:37: Lactic Acid 6.3 H* Micro: Microbiology 08/19/24 09:01 Mucosa - Nose SARS-CoV-2, Influenza & RSV (PCR) - Final Imaging Radiology Impression Chest X-Ray 08/19/24 09:03 IMPRESSION: Prominent lung markings at the left lung base. Can not exclude a developing infiltrate. Elevation of the right hemidiaphragm. Reading Location: [place] [address] Charges/Coding Visit Charges Inpatient E&M: 63146 Init Hosp L3 08/20/24 0547 <Electronically signed by Case Paredes DO> Cosigner Signature (if applicable): CC: Dr. Yvan Rahman MD~ Signed [facility] Work Phone: [phone] 150-687004-10-2025 Consult note [facility] Medical Records Department [address] [place] [address] Consultation - Electro Plater 08/19/24 1327 MR#: [id number] Acct: [id number] Name: SANTOS MOREL Kareem Rep #:[id number] : 1940 84 From: Case Paredes DO PCP: Dr. Yvan Rahman MD Status:ADM IN Location: ICU ICU01-1 Assessment & Plan Assessment/Plan (1) Sepsis: PLAN: Plan RECOMMENDATIONS: 1. Continue empiric antibiotics. 2. Agree with rechecking beta hydroxybutyrate level. 3. If lactic acidemia improves but anion gap remains elevated with increased beta hydroxybutyrate, recommend insulin drip. 4. Continuous IV fluids as ordered. 5. Continue appropriate DVT prophylaxis. 6. Check enteric pathogen panel. IMPRESSIONS: 1. Sepsis The patient presented with sepsis due to possible pneumonia (less likely) versusGI source (gastroenteritis) with acute sepsis related organ dysfunction as evidenced by lactic acidemia. The patient has been initiated on antimicrobial therapy along with supplemental IV fluid hydration. He remains hemodynamically stable at the present time. Will plan to check an enteric pathogen panel, if the patient continues to have diarrhea. Otherwise, continue current supportive care. 2. Hyperglycemia The patient presented with hyperglycemia with an increased anion gap and metabolic acidosis, concerning for DKA. Accordingly, recommend rechecking beta hydroxybutyrate level. If the patient's lactic acidemia improves but anion gap remains elevated with increased beta hydroxybutyrate level, I would recommend initiating a continuous insulin infusion, and starting DKA protocol. 3. Remote history of lung CA/BPH/hypothyroidism/GERD/hypertension Complicates care, management, recovery and prognosis. Continue home medicationsas indicated. Remainder of supportive care as noted above. This note was generated with [employer] dictation software. It may contain incorrectwords, spelling, and punctuation that were not noted in checking the note beforesigning. HPI Consult Data Date of Consult: 08/20/24 HPI Narrative Reason for Consultation: Sepsis HPI Narrative: The patient is an 84-year-old male, with a history as outlined below, who presented to the emergency department on August 19 with nausea, vomiting and diarrhea of approximately 48 hours duration. The patient reported that he initially became ill after eating breakfast yesterday with some friends. His symptoms initially began with nausea and vomiting and then he developed some diarrhea overnight. Hedoes report limited p.o. intake during the aforementioned time. The patient has a remote history oflung CA approximately 10 years ago status post lobectomy along with diabetes mellitus and hypertension. On presentation to the emergency department, the patient was noted to be febrile, tachycardic tachypneic. The patient was hypertensive, but maintaining appropriate oxygen saturations on room air. Laboratory evaluation was notable for a white blood cell count of 14,000. Coagulation profile was within normal limits. Chemistry profile was notable for an anion gap of 23 with a creatinine of 1.18. Glucose was elevated at 437. Lactate was increased to 6.3. Lipase was within normal limits. Beta hydroxybutyrate level was elevated at 1.6. Chest x- ray, on my review, did not reveal a focal infiltrate orconsolidation. Blood and urine cultures were collected. The patient was started on supplemental IV fluids and antimicrobials. He was subsequently admitted to the medical intensive care unit. [facility] Medical History (Updated 08/19/24 @ 12:50 by Anita Poe) Kidney stones Non-smoker HTN (hypertension) Lung cancer Diabetes Home Medications ?Medication ?Instructions ?Recorded ?Last Taken ?Type glimepiride 2 mg tablet 2 mg PO BID 07/22/13 5 History aspirin 81 mg tablet,delayed 81 mg PO DAILY 08/19/24 0 08/18/24 History release (Adult Aspirin Regimen) cholecalciferol (vitamin D3) 50 50 mcg PO DAILY 08/18/24 History mcg (2,000 unit) capsule levothyroxine 175 mcg tablet 175 mcg PO DAILY 08/19/24 08/18/24 History (Synthroid) losartan 100 mg tablet 100 mg PO DAILY 08/19/2401/04 History omeprazole 20 mg capsule,delayed 20 mg PO DAILY 08/18/24 History release pioglitazone 30 mg tablet 30 mg PO DAILY 08/19/2401/04 History pravastatin 40 mg tablet 40 mg PO DAILY 08/19/2401/04 History sitagliptin phos 100 mg-metformin 1 tab PO DAILY 08/1908/18/24 History ER 1,000 mg tablet,extend rel 24h mp (Janumet XR) tamsulosin 0.4 mg capsule 0.4 mg PO BID 08/19/2408/18 History Allergy/AdvReac Type Severity Reaction Status Date / Time Penicillins Allergy Swelling Verified 08/19/24 08:58 Surgical History (Updated 08/19/24 @ 09:18 by Luis Armando King) S/P lobectomy of lung Social History Smoking Status: Never smoker ROS ROS Narrative 10 systems were reviewed with pertinent positives as noted in the HPI above. Physical Exam Const alert and no apparent distress Constitutional Narrative: is present at the bedside. General Appearance: cooperative and ill appearing HEENT normocephalic and head/scalp atraumatic Eyes EOMs intact bilaterally, conjunctivae normal and no scleral icterus Neck supple General: trachea midline Chest inspection of chest normal Resp normal respiratory effort Effort and Inspection: tachypneic Auscultation: rales Cardio S1 normal heart sound and S2 normal heart sound Rate: tachycardic GI normal to inspection, nondistended, normoactive bowel sounds Extremity no clubbing, cyanosis or edema Skin no rashes or lesions noted Neuro CN's II-XII intact bilaterally, moves all extremities and no focal motor deficits Psych cooperative and affect normal Lab / Micro Data 08/20/24 03:48 08/20/24 03:48 Labs: Laboratory Results - last 24 hr 08/19/24 08:42: WBC 14.5 H, RBC 5.55, Hgb 15.9, Hct 46.5, MCV 83.8, MCH 28.6, MCHC 34.2, RDW Std Deviation 38.4, RDW Coeff of Yesenia 12.6, Plt Count 220, MPV 10.0, Immature Gran % (Auto) 0.500, Neut % (Auto) 89.9 H, Lymph % (Auto) 6.2 L, Coamo % (Auto) 3.0, Eos % (Auto) 0.1, Baso % (Auto) 0.3, AbsoluteNeuts (auto) 13.1 H, Absolute Lymphs (auto) 0.90, Nucleated RBC % 0, PT 14.7, INR 1.1, APTT 25.3, Sodium 135, Potassium 4.1, Chloride 97 L, Carbon Dioxide 15.5 L, Anion Gap23 H, BUN 22 H, Creatinine 1.18, Estim Creat Clear Calc 54.81, Est GFR (MDRD) Non-Af 62, BUN/Creatinine Ratio 18.8, Glucose 437H, Calcium 8.8, Total Bilirubin 1.11, AST 41 H, ALT 36, Alkaline Phosphatase 71, Total Protein 7.4,Albumin 4.2, Globulin 3.2, Albumin/Globulin Ratio 1.3, Lipase 28, b-Hydroxybutyric mmol/L 1.6 08/19/24 09:16: POC Glucose 375 H 08/19/24 09:35: Urine Color Straw, Urine Clarity Clear, Urine pH 5.0, Ur Specific Howes 1.015, Urine Protein 30 H, Urine Glucose (UA) 1000 H, Urine Ketones 50 H, Urine Occult Blood 10 H, Urine Nitrite Negative, Urine Bilirubin Negative, Urine Urobilinogen Normal, Ur Leukocyte Esterase Negative, Urine RBC 0-5 SEEN, Urine WBC 0-5 SEEN, Ur Squamous Epith Cells 0 SEEN, Urine Bacteria 0 SEEN, Urine Mucus 0 SEEN 08/19/24 09:37: Lactic Acid 6.3 H* Micro: Microbiology 08/19/24 09:01 Mucosa - Nose SARS-CoV-2, Influenza & RSV (PCR) - Final Imaging Radiology Impression Chest X-Ray 08/19/24 09:03 IMPRESSION: Prominent lung markings at the left lung base. Can not exclude a developing infiltrate. Elevation of the right hemidiaphragm. Reading Location: [place] [address] Charges/Coding Visit Charges Inpatient E&M: 16277 Init Hosp L3 08/20/24 0547 Cosigner Signature (if applicable): CC: Dr. Yvan Rahman MD~ Signed [facility]04-09-2025 History and physical note Author Yadira Pruett [facility] Note Date/Time August 19, 2024 8:04 pm [facility] Medical Records Department [address] [place] [id number] H&P Exam - Hospitalist 08/19/24 1122 MR#: [id number] Acct: [id number] Name: SANTOS MOREL Rep #:[id number] : 1940 84 From: Yadira Pruett MD PCP: Dr. Yvan Rahman MD Status:ADM IN Location: ICU ICU01-1 HPI - General General Date of Admission: 08/19/24 Date of Service: 08/19/24 Chief Complaint: Altered mental status, nausea and vomiting HPI Narrative SANTOS MOREL, is a 84 M with a history of BPH, GERD, hypertension, hypothyroidism, diabetes presented [facility] ED 08/19/24 with nausea, vomiting, weakness and altered mental status. Reportedly he had been inhis usual health the day before but woke up at 4 AM with nausea and vomiting andwas feeling weak, noted he was very confused ultimately prompting her to bring him to the hospital, EMS noted patient was hypoxic to 80s and in the ED patient was tachypneic, tachycardic, and febrile and requiring 2 L of O2. Chestx-ray concerning for pneumonia so patient started on broad-spectrum antibiotics. He was also found to have an elevated lactic acid and was given IV fluids per sepsis protocol and hospitalist contacted for admission. Additionally patient was found to have urinary retention and had Suárez placed. History obtained primarily per report and from as patient is very tired and often will wake up any as somewhat difficult time answering questions though reportedly is more oriented now. Per he had a normal day yesterday and he did not know with her and went to bed completely fine but this a.m. she heard him get up around 4 AM when he had at least 3 episodes of emesis and an episode of diarrhea and given his continued worsening he was brought to the ED. Patient very tired but did wake up and answer questions more appropriately which is improved per . Patient reports he has been having cough but denies any abdominal pain, no more nausea or vomiting, denies being short of breath at present [facility] Medical History (Updated 08/19/24 @ 10:51 by Denilson Foley MD) Diabetes HTN (hypertension) Lung cancer Home Medications ?Medication ?Instructions ?Recorded ?Last Taken ?Type glimepiride 2 mg tablet 2 mg PO BID 07/22/13 5 History aspirin 81 mg tablet,delayed 81 mg PO DAILY 08/19/24 0 08/18/24 History release (Adult Aspirin Regimen) cholecalciferol (vitamin D3) 50 50 mcg PO DAILY 08/18/24 History mcg (2,000 unit) capsule levothyroxine 175 mcg tablet 175 mcg PO DAILY 08/19/24 08/18/24 History (Synthroid) losartan 100 mg tablet 100 mg PO DAILY 08/19/2401/04 History omeprazole 20 mg capsule,delayed 20 mg PO DAILY 08/18/24 History release pioglitazone 30 mg tablet 30 mg PO DAILY 08/19/2401/04 History pravastatin 40 mg tablet 40 mg PO DAILY 08/19/2401/04 History sitagliptin phos 100 mg-metformin 1 tab PO DAILY 08/1908/18/24 History ER 1,000 mg tablet,extend rel 24h mp (Janumet XR) tamsulosin 0.4 mg capsule 0.4 mg PO BID 08/19/2408/18 History Allergy/AdvReac Type Severity Reaction Status Date / Time Penicillins Allergy Swelling Verified 08/19/24 08:58 Surgical History (Updated 08/19/24 @ 09:18 by Luis Armando King) S/P lobectomy of lung Social History Smoking Status: Never smoker ROS ROS Narrative Patient denies any current nausea, vomiting, abdominal pain, no diarrhea since being in the ED, does report cough but no shortness of breath, patient very tired and had difficulty answering further ROS at this time Vital Signs Vital Signs Vital Signs: 08/19/24 08:58 08/19/24 09:08 08/19/24 09:08 Temperature 98.2 F 98.6 F Temperature Source Oral Oral Pulse Rate 130 H 130 H Respiratory Rate 18 28 H Respiratory Effort Respiratory Pattern Blood Pressure 174/86 H 174/86 H Blood Pressure Mean 115 115 Pulse Ox 91 92 Oxygen Delivery Method Room Air Room Air Nasal Cannula Oxygen Flow Rate (L/min) 2 08/19/24 09:17 08/19/24 10:05 08/19/24 10:28 Temperature 102.1 F H 102.3 F H Temperature Source Core Core Pulse Rate 116 H 115 H Respiratory Rate 28 H 30 H Respiratory Effort Normal Respiratory Pattern Normal Blood Pressure 145/64 H 123/70 H Blood Pressure Mean 91 87 Pulse Ox 93 94 Oxygen Delivery Method Nasal Cannula Nasal Cannula Oxygen Flow Rate (L/min) 2 2 Weight Weight: 91.2 kg Body Mass Index (BMI) 28.8 Physical Exam Narrative General: Patient sleeping, did eventually wake up but was very tired, initially said the wrong place but then corrected that he was in the hospital, seemed to answer most questions correctly but mostly tired now HEENT: Atraumatic, normocephalic Eyes: Anicteric, normal conjunctiva, extraocular movements grossly intact Neck: Supple Respiratory: Little bit coarse in the left base, tachypneic Cardiovascular: Sinus tachycardia GI: Soft, nontender, no significant distention without rebound, guarding, rigidity Extremities: Trace lower extremity edema Musculoskeletal: Moving all extremities Neuro: No overt focal neurological deficits Skin: Has some very small petechial looking area around his left wrist and hand after blood pressure cuff inflated and has not worsened Psych: Attempts to be cooperative Results Lab / Micro Data 08/19/24 08:42 08/19/24 08:42 Labs: Laboratory Results - last 24 hr 08/19/24 08:42: WBC 14.5 H, RBC 5.55, Hgb 15.9, Hct 46.5, MCV 83.8, MCH 28.6, MCHC 34.2, RDW Std Deviation 38.4, RDW Coeff of Yesenia 12.6, Plt Count 220, MPV 10.0, Immature Gran % (Auto) 0.500, Neut % (Auto) 89.9 H, Lymph % (Auto) 6.2 L, Coamo % (Auto) 3.0, Eos % (Auto) 0.1, Baso % (Auto) 0.3, Absolute Neuts (auto) 13.1 H, Absolute Lymphs (auto) 0.90, Nucleated RBC % 0, PT 14.7, INR 1.1, APTT 25.3, Sodium 135, Potassium 4.1, Chloride 97 L, Carbon Dioxide 15.5 L, Anion Gap23 H, BUN 22 H, Creatinine 1.18, Estim Creat Clear Calc 54.81, Est GFR (MDRD) Non-Af 62, BUN/Creatinine Ratio 18.8, Glucose 437 H, Calcium 8.8, Total Bilirubin 1.11, AST 41 H, ALT 36, Alkaline Phosphatase 71, Total Protein 7.4, Albumin 4.2, Globulin 3.2, Albumin/Globulin Ratio 1.3, Lipase 28, b-Hydroxybutyric mmol/L 1.6 08/19/24 09:16: POC Glucose 375 H 08/19/24 09:35: Urine Color Straw, Urine Clarity Clear, Urine pH 5.0, Ur Specific Howes 1.015, Urine Protein 30 H, Urine Glucose (UA) 1000 H, Urine Ketones 50 H, Urine Occult Blood 10 H, Urine Nitrite Negative, Urine Bilirubin Negative, Urine Urobilinogen Normal, Ur Leukocyte Esterase Negative, Urine RBC 0-5 SEEN, Urine WBC 0-5 SEEN, Ur Squamous Epith Cells 0 SEEN, Urine Bacteria 0 SEEN, Urine Mucus 0 SEEN 08/19/24 09:37: Lactic Acid 6.3 H* Micro: Microbiology 08/19/24 09:01 Mucosa - Nose SARS-CoV-2, Influenza & RSV (PCR) - Final Imaging Radiology Impression Chest X-Ray 08/19/24 09:03 IMPRESSION: Prominent lung markings at the left lung base. Can not exclude a developing infiltrate. Elevation of the right hemidiaphragm. Reading Location: [place] [address] Assessment & Plan Assessment/Plan (1) Sepsis: (2) Urinary retention: (3) Pneumonia: (4) Mental status alteration: (5) Hyperglycemia: PLAN: Plan # Sepsis suspect secondary to pneumonia - Patient febrile, tachycardic, tachypneic with chest x-ray suggestive of pneumonia - Additionally elevated white blood cell count and elevated lactic acid, additionally hyperglycemic above baseline -Patient additionally hypoxic when EMS arrived and had acute metabolic encephalopathy secondary to above - IV fluids per sepsis protocol - Patient to be admitted to the ICU with case making machine operator consult - Blood and urine culture sent, you did not appear overtly infectious at this time however - Patient will be covered for pneumonia, given penicillin allergy will avoid penicillins -DuoNebs and as needed albuterol -Sputum culture, COVID negative, respiratory panel ordered -Urine antigens -Mucinex, I/S - Broad-spectrum antibiotics given significance of illness # Hypoxia -suspect secondary to pneumonia and sepsis -Patient presently on 2 L O2, is tachypneic but to some extent suspect this is presently due to his acidosis -Will monitor closely # Type 2 diabetes with significant hyperglycemia -Serum glucose in ED initially 473 with an anion gap of 22 however patient also has a lactic of 6.3 so difficult to tell how much gap has been affected - Does have urine ketones however and does have an increase in beta hydroxybutyrate - Will give dose of IV insulin and schedule every 4 glucose checks with high correction factor, if this does not improve and beta hydroxybutyrate does not improve may need to make n.p.o. and have DKA protocol -Aggressive fluid hydration - Glucose checks -I's and O's -A1c in the a.m. 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 Yvan Rahman MD; Dr. Yadira Pruett MD~ Signed ADDENDUM by Dr. Yadira Pruett MD on 08/19/24 at 2002 Addendum Patient's lactic down trended, bicarb and anion gap both improved from admissionbut have vacillated slightly, beta hydroxybutyrate however is continued to come down, blood pressure remained stable, continue IV fluids and antibiotics 08/19/242002<Electronically signed by Yadira Pruett MD> Cosigner Signature (if applicable): cc: Dr. Yvan Rahman MD; Dr. Yadira Pruett MD ~* Signed [facility] Work Phone: 1(839) 398-780904-09-2025 History and physical note [facility] Medical Records Department [address] [place] [id number] H&P Exam - Hospitalist 08/19/24 1122 MR#: [id number] Acct: [id number] Name: SANTOS MOREL Rep #:[id number] : 1940 84 From: Yadira Pruett MD PCP: Dr. Yvan Rahman MD Status:ADM IN Location: ICU ICU01-1 HPI - General General Date of Admission: 08/19/24 Date of Service: 08/19/24 Chief Complaint: Altered mental status, nausea and vomiting HPI Narrative SANTOS MOREL, is a 84 M with a history of BPH, GERD, hypertension, hypothyroidism, diabetes presented [facility] ED 08/19/24 with nausea, vomiting, weakness and altered mental status. Reportedly he had been inhis usual health the day before but woke up at 4 AM with nausea and vomiting andwas feeling weak, noted he was very confused ultimately prompting her to bring him to the hospital, EMS noted patient was hypoxic to 80s and in the ED patient was tachypneic, tachycardic,and febrile and requiring 2 L of O2. Chestx- ray concerning for pneumonia so patient started on broad-spectrum antibiotics. He was also found to have an elevated lactic acid and was given IV fluids per sepsis protocol and hospitalist contacted for admission. Additionally patient was found to have urinary retention and had Suárez placed. History obtained primarily per report and from as patientis very tired and often will wake up any as somewhat difficult time answering questions though reportedly is more oriented now. Per he had a normal day yesterday and he did not know with her andwent to bed completely fine but this a.m. she heard him get up around 4 AM when he had at least 3 episodes of emesis and an episode of diarrhea and given his continued worsening he was brought to theED. Patient very tired but did wake up and answer questions more appropriately which is improved per . Patient reports he has been having cough but denies any abdominal pain, no more nausea or vomiting, denies being short of breath at present [facility] Medical History (Updated 08/19/24 @ 10:51 by Denilson Foley MD) Diabetes HTN (hypertension) Lung cancer Home Medications ?Medication ?Instructions ?Recorded ?Last Taken ?Type glimepiride 2 mg tablet 2 mg PO BID 07/22/13 5 History aspirin 81 mg tablet,delayed 81 mg PO DAILY 08/19/24 0 08/18/24 History release (Adult Aspirin Regimen) cholecalciferol (vitamin D3) 50 50 mcg PO DAILY 08/18/24 History mcg (2,000 unit) capsule levothyroxine 175 mcg tablet 175 mcg PO DAILY 08/19/24 08/18/24 History (Synthroid) losartan 100 mg tablet 100 mg PO DAILY 08/19/2401/04 History omeprazole 20 mg capsule,delayed 20 mg PO DAILY 08/18/24 History release pioglitazone 30 mg tablet 30 mg PO DAILY 08/19/2401/04 History pravastatin 40 mg tablet 40 mg PO DAILY 08/19/2401/04 History sitagliptin phos 100 mg-metformin 1 tab PO DAILY 08/1908/18/24 History ER 1,000 mg tablet,extend rel 24h mp (Janumet XR) tamsulosin 0.4 mg capsule 0.4 mg PO BID 08/19/2408/18 History Allergy/AdvReac Type Severity Reaction Status Date / Time Penicillins Allergy Swelling Verified 08/19/24 08:58 Surgical History (Updated 08/19/24 @ 09:18 by Luis Armando King) S/P lobectomy of lung Social History Smoking Status: Never smoker ROS ROS Narrative Patient denies any current nausea, vomiting, abdominal pain, no diarrhea since being in the ED, does report cough but no shortness of breath, patient very tired and had difficulty answering further ROS at this time Vital Signs Vital Signs Vital Signs: 08/19/24 08:58 08/19/24 09:08 08/19/24 09:08 Temperature 98.2 F 98.6 F Temperature Source Oral Oral Pulse Rate 130 H 130 H Respiratory Rate 18 28 H Respiratory Effort Respiratory Pattern Blood Pressure 174/86 H 174/86 H Blood Pressure Mean 115 115 Pulse Ox 91 92 Oxygen Delivery Method Room Air Room Air Nasal Cannula Oxygen Flow Rate (L/min) 2 08/19/24 09:17 08/19/24 10:05 08/19/24 10:28 Temperature 102.1 F H 102.3 F H Temperature Source Core Core Pulse Rate 116 H 115 H Respiratory Rate 28 H 30 H Respiratory Effort Normal Respiratory Pattern Normal Blood Pressure 145/64 H 123/70 H Blood Pressure Mean 91 87 Pulse Ox 93 94 Oxygen Delivery Method Nasal Cannula Nasal Cannula Oxygen Flow Rate (L/min) 2 2 Weight Weight: 91.2 kg Body Mass Index (BMI) 28.8 Physical Exam Narrative General: Patient sleeping, did eventually wake up but was very tired, initially said the wrong place but then corrected that he was in the hospital, seemed to answer most questions correctly but mostly tired now HEENT: Atraumatic, normocephalic Eyes: Anicteric, normal conjunctiva, extraocular movements grossly intact Neck: Supple Respiratory: Little bit coarse in the left base, tachypneic Cardiovascular: Sinus tachycardia GI: Soft, nontender, no significant distention without rebound, guarding, rigidity Extremities: Trace lower extremity edema Musculoskeletal: Moving all extremities Neuro: No overt focal neurological deficits Skin: Has some very small petechial looking area around his left wrist and hand after blood pressure cuff inflated and has not worsened Psych: Attempts to be cooperative Results Lab / Micro Data 08/19/24 08:42 08/19/24 08:42 Labs: Laboratory Results - last 24 hr 08/19/24 08:42: WBC 14.5 H, RBC 5.55, Hgb 15.9, Hct 46.5, MCV 83.8, MCH 28.6, MCHC 34.2, RDW Std Deviation 38.4, RDW Coeff of Yesenia 12.6, Plt Count 220, MPV 10.0, Immature Gran % (Auto) 0.500, Neut % (Auto) 89.9 H, Lymph % (Auto) 6.2 L, Coamo % (Auto) 3.0, Eos % (Auto) 0.1, Baso % (Auto) 0.3, AbsoluteNeuts (auto) 13.1 H, Absolute Lymphs (auto) 0.90, Nucleated RBC % 0, PT 14.7, INR 1.1, APTT 25.3, Sodium 135, Potassium 4.1, Chloride 97 L, Carbon Dioxide 15.5 L, Anion Gap23 H, BUN 22 H, Creatinine 1.18, Estim Creat Clear Calc 54.81, Est GFR (MDRD) Non-Af 62, BUN/Creatinine Ratio 18.8, Glucose 437H, Calcium 8.8, Total Bilirubin 1.11, AST 41 H, ALT 36, Alkaline Phosphatase 71, Total Protein 7.4,Albumin 4.2, Globulin 3.2, Albumin/Globulin Ratio 1.3, Lipase 28, b-Hydroxybutyric mmol/L 1.6 08/19/24 09:16: POC Glucose 375 H 08/19/24 09:35: Urine Color Straw, Urine Clarity Clear, Urine pH 5.0, Ur Specific Howes 1.015, Urine Protein 30 H, Urine Glucose (UA) 1000 H, Urine Ketones 50 H, Urine Occult Blood 10 H, Urine Nitrite Negative, Urine Bilirubin Negative, Urine Urobilinogen Normal, Ur Leukocyte Esterase Negative, Urine RBC 0-5 SEEN, Urine WBC 0-5 SEEN, Ur Squamous Epith Cells 0 SEEN, Urine Bacteria 0 SEEN, Urine Mucus 0 SEEN 08/19/24 09:37: Lactic Acid 6.3 H* Micro: Microbiology 08/19/24 09:01 Mucosa - Nose SARS-CoV-2, Influenza & RSV (PCR) - Final Imaging Radiology Impression Chest X-Ray 08/19/24 09:03 IMPRESSION: Prominent lung markings at the left lung base. Can not exclude a developing infiltrate. Elevation of the right hemidiaphragm. Reading Location: [place] [address] Assessment & Plan Assessment/Plan (1) Sepsis: (2) Urinary retention: (3) Pneumonia: (4) Mental status alteration: (5) Hyperglycemia: PLAN: Plan # Sepsis suspect secondary to pneumonia - Patient febrile, tachycardic, tachypneic with chest x-ray suggestive of pneumonia - Additionally elevated white blood cell count and elevated lactic acid, additionally hyperglycemicabove baseline -Patient additionally hypoxic when EMS arrived and had acute metabolic encephalopathy secondary to above - IV fluids per sepsis protocol - Patient to be admitted to the ICU with case making machine operator consult - Blood and urine culture sent, you did not appear overtly infectious at this time however - Patient will be covered for pneumonia, given penicillin allergy will avoid penicillins -DuoNebs and as needed albuterol -Sputum culture, COVID negative, respiratory panel ordered -Urine antigens -Mucinex, I/S - Broad-spectrum antibiotics given significance of illness # Hypoxia -suspect secondary to pneumonia and sepsis -Patient presently on 2 L O2, is tachypneic but to some extent suspect this is presently due to hisacidosis -Will monitor closely # Type 2 diabetes with significant hyperglycemia -Serum glucose in ED initially 473 with an anion gap of 22 however patient also has a lactic of 6.3so difficult to tell how much gap has been affected - Does have urine ketones however and does have an increase in beta hydroxybutyrate - Will give dose of IV insulin and schedule every 4 glucose checks with high correction factor, if this does not improve and beta hydroxybutyrate does not improve may need to make n.p.o. and have DKAprotocol -Aggressive fluid hydration - Glucose checks -I's and O's -A1c in the a.m. 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 Yvan Rahman MD; Dr. Yadira Pruett MD~ Signed ADDENDUM by Dr. Yadira Pruett MD on 08/19/24 at 2002 Addendum Patient's lactic down trended, bicarb and anion gap both improved from admissionbut have vacillatedslightly, beta hydroxybutyrate however is continued to come down, blood pressure remained stable, continue IV fluids and antibiotics 08/19/242002 Cosigner Signature (if applicable): cc: Dr. Yvan Rahman MD; Dr. Yadira Pruett MD ~* Signed [facility]04-09-2025 Discharge summary Author Denilson Foley [facility] Note Date/Time August 19, 2024 12:0 4pm [facility] Medical Records Department [address] [place] [address] Emergency Department Summary 08/19/24 MR#: [id number] Acct: [id number] Name: SANTOS MOREL Rep #:[id number] : 1940 84 From: Denilson Foley MD PCP: Dr. Yvan Rahman MD Status:ADM IN Location: ICU ICU01-1 HPI History of Present Illness Chief Complaint: Weakness Narrative Narrative: 84-year-old male past medical history of diabetes presents via EMS with generalized weakness, nausea and vomiting. It was reported that he had a fever/elevated temperature at home. He felt sick to his stomach, and vomited 3-4 times at home. He was unable to sit up completely. He relates history that he has been feeling tired and fatigued as well. He denies any chest pain or shortness of breath, no cough, no problems with urination. He is not having diarrhea. He denies any abdominal pain. It was reported by EMS that he was hypoxic as well. He had a pulse ox in the 80s upon their arrival. [facility] Medical History (Updated 08/19/24 @ 10:51 by Denilson Foley MD) HTN (hypertension) Lung cancer Diabetes Home Medications ?Medication ?Instructions ?Recorded ?Last Taken ?Type glimepiride 2 mg tablet 2 mg PO BID 07/22/13 5 History aspirin 81 mg tablet,delayed 81 mg PO DAILY 08/19/24 0 08/18/24 History release (Adult Aspirin Regimen) cholecalciferol (vitamin D3) 50 50 mcg PO DAILY 08/18/24 History mcg (2,000 unit) capsule levothyroxine 175 mcg tablet 175 mcg PO DAILY 08/19/24 08/18/24 History (Synthroid) losartan 100 mg tablet 100 mg PO DAILY 08/19/2401/04 History omeprazole 20 mg capsule,delayed 20 mg PO DAILY 08/18/24 History release pioglitazone 30 mg tablet 30 mg PO DAILY 08/19/2401/04 History pravastatin 40 mg tablet 40 mg PO DAILY 08/19/2401/04 History sitagliptin phos 100 mg-metformin 1 tab PO DAILY 08/1908/18/24 History ER 1,000 mg tablet,extend rel 24h mp (Janumet XR) tamsulosin 0.4 mg capsule 0.4 mg PO BID 08/19/2408/18 History Allergy/AdvReac Type Severity Reaction Status Date / Time Penicillins Allergy Swelling Verified 08/19/24 08:58 Surgical History (Updated 08/19/24 @ 09:18 by Luis Armando King) S/P lobectomy of lung Social History Smoking Status: Never smoker ROS ROS ED ROS Narrative Afebrile. Vital signs noted. Nontoxic-appearing. Intermittent drowsiness noted on examination. Cardiovascular examination reveals mild tachycardia. Lungs are clear to auscultation bilaterally with diminished sounds at the bilateral bases. Abdomen soft, nontender, no guarding or rebound. Positive bowel sounds. Neurological examination shows him to be awake and interactive. Stated year was 2023. Intermittently fatigued. No pedal edema bilaterally. Moves all extremities. EXAM Physical Exam Const Vital Signs: 08/19/24 08:58 08/19/24 09:08 08/19/24 09:08 Temperature 98.2 F 98.6 F Temperature Source Oral Oral Pulse Rate 130 H 130 H Respiratory Rate 18 28 H Respiratory Effort Respiratory Pattern Blood Pressure 174/86 H 174/86 H Blood Pressure Mean 115 115 Pulse Ox 91 92 Oxygen Delivery Method Room Air Room Air Nasal Cannula Oxygen Flow Rate (L/min) 2 08/19/24 09:17 08/19/24 10:05 08/19/24 10:28 Temperature 102.1 F H 102.3 F H Temperature Source Core Core Pulse Rate 116 H 115 H Respiratory Rate 28 H 30 H Respiratory Effort Normal Respiratory Pattern Normal Blood Pressure 145/64 H 123/70 H Blood Pressure Mean 91 87 Pulse Ox 93 94 Oxygen Delivery Method Nasal Cannula Nasal Cannula Oxygen Flow Rate (L/min) 2 2 Sepsis Attestation Sepsis Alert: Yes Sepsis Attestation: Agree w/Sepsis Date exam was performed: 08/19/24 Time exam was performed: 10:05 Possible Source of Sepsis: Pulmonary Sepsis Organ Dysfunction Criteria Present: SBP decrease of more than 40 mmHg andNew/Unexplained change in mental status Fluid Resuscitation Fluid resuscitation indicated?: Yes Fluid Resuscitation ordered: 30 ml/kg fluid bolus ordered Amount of fluid ordered: 2,750 MDM MDM MDM Narrative Medical decision making narrative: Given patient's generalized weakness, differential diagnosis includes dehydration versus intravascular volume depletion. Given his tachycardia, concern would also be for new onset atrial fibrillation versus sinus tachycardia. With his reported hypoxia, he may have pneumonia versus pneumothorax. While he is not hypotensive, sepsis workup was pursued given his reported fever but he is currently afebrile. In discussing with the patient's , she states that yesterday patient was complaining of urinary frequency. She called EMS this morning because at 4 AM he started having nausea and vomiting and was in the bathroom for a while. He had an episode of diarrhea as well and she had to call her son to try and get him to the bathroom. He was so weak he could barely stand and ambulate, and he seemed more confused. She states that he takes Januvia and oral medication for his diabetes. Per RN, [id number] glucose is elevated at 375. I added a betahydroxybutyrate, and bladder scan was also performed. He was having urinary retention so Suárez catheter was inserted. On my individual interpretation of his 1 view chest x-ray, there is perihilar fullness and questionable infiltrate in the left lower lobe. He has chronicallyelevated right hemidiaphragm when compared to previous chest x-ray. I reviewed the radiology report which comments more on the developing left lower lobe infiltrate. Given his hypoxia, I feel he may have more of a pneumonia. EKG wasobtained and interpreted by myself independently as sinus tachycardia at 127 bpmwith a right bundle branch block, no acute ST changes/STEMI. When compared to previous EKG, he has had a right bundle branch block even in 2014. I reviewed his laboratory work and he has elevated white count of 14.5 with hemoglobin 15.9, hematocrit 46.5, platelet count 220. INR normal at 1.1 with a PTT 25.3. CMP is remarkable for a chloride of 97 with CO2 low at 15.5 and aniongap elevated 23, BUN of 22 and creatinine 1.18. LFTs show AST slightly elevatedat 41 which I think is nonspecific, normal ALT and normal alk phos. Lactic acidis elevated at 6.3. Glucose is elevated at 435. I obtained acetone level and it is also elevated at 1.6. Patient was started on IV fluids. I deferred insulin to the hospitalist. Given his lactic acidosis, and now with fever of 102.3, tachycardia, sepsis alert was instituted. As he may have more of an aspiration pneumonia, given his penicillin allergy of swelling he was started onlevofloxacin and Flagyl intravenously. I discussed the patient with Dr. Yadira Pruett for admission to the ICU. Critical care time 31 minutes. Disposition is admit to the ICU in guarded condition. History & Record Review Discussion w/independent historian: Patient and Family Lab Data Attestation: I reviewed the patient's lab results. Labs: Laboratory Results - last 24 hr 08/19/24 08/19/24 08/19/24 08:42 09:16 09:35 WBC 14.5 H RBC 5.55 Hgb 15.9 Hct 46.5 MCV 83.8 MCH 28.6 MCHC 34.2 RDW Std Deviation 38.4 RDW Coeff of Yesenia 12.6 Plt Count 220 MPV 10.0 Immature Gran % (Auto) 0.500 Neut % (Auto) 89.9 H Lymph % (Auto) 6.2 L Coamo % (Auto) 3.0 Eos % (Auto) 0.1 Baso % (Auto) 0.3 Absolute Neuts (auto) 13.1 H Absolute Lymphs (auto) 0.90 Nucleated RBC % 0 PT 14.7 INR 1.1 APTT 25.3 Sodium 135 Potassium 4.1 Chloride 97 L Carbon Dioxide 15.5 L Anion Gap 23 H BUN 22 H Creatinine 1.18 Estim Creat Clear Calc 54.81 Est GFR (MDRD) Non-Af 62 BUN/Creatinine Ratio 18.8 Glucose 437 H Lactic Acid Calcium 8.8 Total Bilirubin 1.11 AST 41 H ALT 36 Alkaline Phosphatase 71 Total Protein 7.4 Albumin 4.2 Globulin 3.2 Albumin/Globulin Ratio 1.3 Lipase 28 b-Hydroxybutyric mmol/L 1.6 Urine Color Straw Urine Clarity Clear Urine pH 5.0 Ur Specific Howes 1.015 Urine Protein 30 H Urine Glucose (UA) 1000 H Urine Ketones 50 H Urine Occult Blood 10 H Urine Nitrite Negative Urine Bilirubin Negative Urine Urobilinogen Normal Ur Leukocyte Esterase Negative Urine RBC 0-5 SEEN Urine WBC 0-5 SEEN Ur Squamous Epith Cells 0 SEEN Urine Bacteria 0 SEEN Urine Mucus 0 SEEN POC Glucose 375 H 08/19/24 09:37 WBC RBC Hgb Hct MCV MCH MCHC RDW Std Deviation RDW Coeff of Yesenia Plt Count MPV Immature Gran % (Auto) Neut % (Auto) Lymph % (Auto) Coamo % (Auto) Eos % (Auto) Baso % (Auto) Absolute Neuts (auto) Absolute Lymphs (auto) Nucleated RBC % PT INR APTT Sodium Potassium Chloride Carbon Dioxide Anion Gap BUN Creatinine Estim Creat Clear Calc Est GFR (MDRD) Non-Af BUN/Creatinine Ratio Glucose Lactic Acid 6.3 H* Calcium Total Bilirubin AST ALT Alkaline Phosphatase Total Protein Albumin Globulin Albumin/Globulin Ratio Lipase b-Hydroxybutyric mmol/L Urine Color Urine Clarity Urine pH Ur Specific Howes Urine Protein Urine Glucose (UA) Urine Ketones Urine Occult Blood Urine Nitrite Urine Bilirubin Urine Urobilinogen Ur Leukocyte Esterase Urine RBC Urine WBC Ur Squamous Epith Cells Urine Bacteria Urine Mucus POC Glucose Radiography Chest X-Ray - ED: 1 View and Read by ED Physician Diagnostic Testing: Clinical Impression(s) from Imaging Studies Chest X-Ray 08/19/24 09:03 IMPRESSION: Prominent lung markings at the left lung base. Can not exclude a developing infiltrate. Elevation of the right hemidiaphragm. Reading Location: [place] [address] Management Discussion w/another healthcare provider: Hospitalist Critical Care Time Critical Care Time: Yes Critical care time (excluding procedures): 30-74 minutes (31), Including time spent:, Discussing w/Patient &/or Family/Patient Admitting Representative, Discussing w/Consultants, Arranging Admission or Transfer and Performing Direct Patient Care at Bedside Discharge Plan Dx/Rx/DC Orders Clinical Impression: Pneumonia, Sepsis, Mental status alteration, Urinary retention, Hyperglycemia Disposition Disposition: [facility] What to do if you have Problems For any increased pain, shortness of breath, bleeding, nausea or vomiting, chestpain, or any unexpected problems, contact your Primary Care Provider. Call [facility] ([phone]) or report to the closest Emergency Room. Call 911 if necessary. 08/19/24 1204 <Electronically signed by Denilson Foley MD> Cosigner Signature (if applicable): CC: Dr. Yvan Rahman MD ~ Signed [facility] Work Phone: 1(350) 829-345104-09-2025 Evaluation note* Diagnosis Onset Date Resolution Status Admit Date Hyperglycemia acute August 19, 2024 11:22am Mental status alteration acute August 19, 2024 11:22am Pneumonia acute August 19 11:22am Sepsis acute August 19 11:22am Urinary retention acute August 192024 11:22am [facility] Work Phone: 1(338) 649-173604-09-2025 Discharge summary [facility] Medical Records Department [address] [place] [address] Emergency Department Summary 08/19/24 MR#: [id number] Acct: [id number] Name: SANTOS MOREL Rep #:[id number] : 1940 84 From: Denilson Foley MD PCP: Dr. Yvan Rahman MD Status:ADM IN Location: ICU ICU01-1 HPI History of Present Illness Chief Complaint: Weakness Narrative Narrative: 84-year-old male past medical history of diabetes presents via EMS with generalized weakness, nausea and vomiting. It was reported that he had a fever/elevated temperature at home. He felt sick to his stomach, and vomited 3-4 times at home. He was unable to sit up completely. He relates history that he has been feeling tired and fatigued as well. He denies any chest pain or shortness of breath, no cough, no problems with urination. He is not having diarrhea. He denies any abdominal pain. It wasreported by EMS that he was hypoxic as well. He had a pulse ox in the 80s upon their arrival. [facility] Medical History (Updated 08/19/24 @ 10:51 by Denilson Foley MD) HTN (hypertension) Lung cancer Diabetes Home Medications ?Medication ?Instructions ?Recorded ?Last Taken ?Type glimepiride 2 mg tablet 2 mg PO BID 07/22/13 5 History aspirin 81 mg tablet,delayed 81 mg PO DAILY 08/19/24 0 08/18/24 History release (Adult Aspirin Regimen) cholecalciferol (vitamin D3) 50 50 mcg PO DAILY 08/18/24 History mcg (2,000 unit) capsule levothyroxine 175 mcg tablet 175 mcg PO DAILY 08/19/24 08/18/24 History (Synthroid) losartan 100 mg tablet 100 mg PO DAILY 08/19/2401/04 History omeprazole 20 mg capsule,delayed 20 mg PO DAILY 08/18/24 History release pioglitazone 30 mg tablet 30 mg PO DAILY 08/19/2401/04 History pravastatin 40 mg tablet 40 mg PO DAILY 08/19/2401/04 History sitagliptin phos 100 mg-metformin 1 tab PO DAILY 08/1908/18/24 History ER 1,000 mg tablet,extend rel 24h mp (Janumet XR) tamsulosin 0.4 mg capsule 0.4 mg PO BID 08/19/2408/18 History Allergy/AdvReac Type Severity Reaction Status Date / Time Penicillins Allergy Swelling Verified 08/19/24 08:58 Surgical History (Updated 08/19/24 @ 09:18 by Luis Armando King) S/P lobectomy of lung Social History Smoking Status: Never smoker ROS ROS ED ROS Narrative Afebrile. Vital signs noted. Nontoxic-appearing. Intermittent drowsiness noted on examination. Cardiovascular examination reveals mild tachycardia. Lungs are clear to auscultation bilaterally with diminished sounds at the bilateral bases. Abdomen soft, nontender, no guarding or rebound. Positive bowel sounds. Neurological examination shows him to be awake and interactive. Stated year was 2023. Intermittently fatigued. No pedal edema bilaterally. Moves all extremities. EXAM Physical Exam Const Vital Signs: 08/19/24 08:58 08/19/24 09:08 08/19/24 09:08 Temperature 98.2 F 98.6 F Temperature Source Oral Oral Pulse Rate 130 H 130 H Respiratory Rate 18 28 H Respiratory Effort Respiratory Pattern Blood Pressure 174/86 H 174/86 H Blood Pressure Mean 115 115 Pulse Ox 91 92 Oxygen Delivery Method Room Air Room Air Nasal Cannula Oxygen Flow Rate (L/min) 2 08/19/24 09:17 08/19/24 10:05 08/19/24 10:28 Temperature 102.1 F H 102.3 F H Temperature Source Core Core Pulse Rate 116 H 115 H Respiratory Rate 28 H 30 H Respiratory Effort Normal Respiratory Pattern Normal Blood Pressure 145/64 H 123/70 H Blood Pressure Mean 91 87 Pulse Ox 93 94 Oxygen Delivery Method Nasal Cannula Nasal Cannula Oxygen Flow Rate (L/min) 2 2 Sepsis Attestation Sepsis Alert: Yes Sepsis Attestation: Agree w/Sepsis Date exam was performed: 08/19/24 Time exam was performed: 10:05 Possible Source of Sepsis: Pulmonary Sepsis Organ Dysfunction Criteria Present: SBP decrease of more than 40 mmHg andNew/Unexplained change in mental status Fluid Resuscitation Fluid resuscitation indicated?: Yes Fluid Resuscitation ordered: 30 ml/kg fluid bolus ordered Amount of fluid ordered: 2,750 MDM MDM MDM Narrative Medical decision making narrative: Given patient's generalized weakness, differential diagnosis includes dehydration versus intravascular volume depletion. Given his tachycardia, concern would also be for new onset atrial fibrillationversus sinus tachycardia. With his reported hypoxia, he may have pneumonia versus pneumothorax. While he is not hypotensive, sepsis workup was pursued given his reported fever but he is currently afebrile. In discussing with the patient's , she states that yesterday patient was complaining of urinaryfrequency. She called EMS this morning because at 4 AM he started having nausea and vomiting and was in the bathroom for a while. He had an episode of diarrhea as well and she had to call her son to try and get him to the bathroom. He was so weak he could barely stand and ambulate, and he seemed more confused. She states that he takes Januvia and oral medication for his diabetes. Per RN, [id number] glucose is elevated at 375. I added a betahydroxybutyrate, and bladder scan was also performed. He was having urinary retention so Suárez catheter was inserted. On my individual interpretation of his 1 view chest x-ray, there is perihilar fullness and questionable infiltrate in the left lower lobe. He has chronicallyelevated right hemidiaphragm when comparedto previous chest x-ray. I reviewed the radiology report which comments more on the developing leftlower lobe infiltrate. Given his hypoxia, I feel he may have more of a pneumonia. EKG wasobtained and interpreted by myself independently as sinus tachycardia at 127 bpmwith a right bundle branch block, no acute ST changes/STEMI. When compared to previous EKG, he has had a right bundle branch blockeven in 2014. I reviewed his laboratory work and he has elevated white count of 14.5 with hemoglobin 15.9, hematocrit 46.5, platelet count 220. INR normal at 1.1 with a PTT 25.3. CMP is remarkable for a chloride of 97 with CO2 low at 15.5 and aniongap elevated 23, BUN of 22 and creatinine 1.18. LFTs show AST slightly elevatedat 41 which I think is nonspecific, normal ALT and normal alk phos. Lactic acidis elevated at 6.3. Glucose is elevated at 435. I obtained acetone level and it is also elevated at 1.6. Patient was started on IV fluids. I deferred insulin to the hospitalist. Given his lactic acidosis, and now with fever of 102.3, tachycardia, sepsis alert was instituted. As he may have more of an aspiration pneumonia, given his penicillin allergy of swelling he was started onlevofloxacin and Flagyl intravenously. I discussed the patient with Dr. Yadira Pruett for admission to the ICU. Critical care time 31 minutes. Disposition is admit to the ICU in guarded condition. History & Record Review Discussion w/independent historian: Patient and Family Lab Data Attestation: I reviewed the patient's lab results. Labs: Laboratory Results - last 24 hr 08/19/24 08/19/24 08/19/24 08:42 09:16 09:35 WBC 14.5 H RBC 5.55 Hgb 15.9 Hct 46.5 MCV 83.8 MCH 28.6 MCHC 34.2 RDW Std Deviation 38.4 RDW Coeff of Yesenia 12.6 Plt Count 220 MPV 10.0 Immature Gran % (Auto) 0.500 Neut % (Auto) 89.9 H Lymph % (Auto) 6.2 L Coamo % (Auto) 3.0 Eos % (Auto) 0.1 Baso % (Auto) 0.3 Absolute Neuts (auto) 13.1 H Absolute Lymphs (auto) 0.90 Nucleated RBC % 0 PT 14.7 INR 1.1 APTT 25.3 Sodium 135 Potassium 4.1 Chloride 97 L Carbon Dioxide 15.5 L Anion Gap 23 H BUN 22 H Creatinine 1.18 Estim Creat Clear Calc 54.81 Est GFR (MDRD) Non-Af 62 BUN/Creatinine Ratio 18.8 Glucose 437 H Lactic Acid Calcium 8.8 Total Bilirubin 1.11 AST 41 H ALT 36 Alkaline Phosphatase 71 Total Protein 7.4 Albumin 4.2 Globulin 3.2 Albumin/Globulin Ratio 1.3 Lipase 28 b-Hydroxybutyric mmol/L 1.6 Urine Color Straw Urine Clarity Clear Urine pH 5.0 Ur Specific Howes 1.015 Urine Protein 30 H Urine Glucose (UA) 1000 H Urine Ketones 50 H Urine Occult Blood 10 H Urine Nitrite Negative Urine Bilirubin Negative Urine Urobilinogen Normal Ur Leukocyte Esterase Negative Urine RBC 0-5 SEEN Urine WBC 0-5 SEEN Ur Squamous Epith Cells 0 SEEN Urine Bacteria 0 SEEN Urine Mucus 0 SEEN POC Glucose 375 H 08/19/24 09:37 WBC RBC Hgb Hct MCV MCH MCHC RDW Std Deviation RDW Coeff of Yesenia Plt Count MPV Immature Gran % (Auto) Neut % (Auto) Lymph % (Auto) Coamo % (Auto) Eos % (Auto) Baso % (Auto) Absolute Neuts (auto) Absolute Lymphs (auto) Nucleated RBC % PT INR APTT Sodium Potassium Chloride Carbon Dioxide Anion Gap BUN Creatinine Estim Creat Clear Calc Est GFR (MDRD) Non-Af BUN/Creatinine Ratio Glucose Lactic Acid 6.3 H* Calcium Total Bilirubin AST ALT Alkaline Phosphatase Total Protein Albumin Globulin Albumin/Globulin Ratio Lipase b-Hydroxybutyric mmol/L Urine Color Urine Clarity Urine pH Ur Specific Howes Urine Protein Urine Glucose (UA) Urine Ketones Urine Occult Blood Urine Nitrite Urine Bilirubin Urine Urobilinogen Ur Leukocyte Esterase Urine RBC Urine WBC Ur Squamous Epith Cells Urine Bacteria Urine Mucus POC Glucose Radiography Chest X-Ray - ED: 1 View and Read by ED Physician Diagnostic Testing: Clinical Impression(s) from Imaging Studies Chest X-Ray 08/19/24 09:03 IMPRESSION: Prominent lung markings at the left lung base. Can not exclude a developing infiltrate. Elevation of the right hemidiaphragm. Reading Location: [place] [address] Management Discussion w/another healthcare provider: Hospitalist Critical Care Time Critical Care Time: Yes Critical care time (excluding procedures): 30-74 minutes (31), Including time spent:, Discussing w/Patient &/or Family/Patient Admitting Representative, Discussing w/Consultants, Arranging Admission or Transfer and Performing Direct Patient Care at Bedside Discharge Plan Dx/Rx/DC Orders Clinical Impression: Pneumonia, Sepsis, Mental status alteration, Urinary retention, Hyperglycemia Disposition Disposition: [facility] What to do if you have Problems For any increased pain, shortness of breath, bleeding, nausea or vomiting, chestpain, or any unexpected problems, contact your Primary Care Provider. Call [facility] ([phone]) or report tothe closest Emergency Room. Call 911 if necessary. 08/19/24 1204 Cosigner Signature (if applicable): CC: Dr. Yvan Rahman MD ~ Signed [facility]04-09-2025 History and physical note [facility] Medical Records Department [address] [place] [address] H&P Exam - Hospitalist 08/19/24 1122 MR#: [id number] Acct: [id number] Name: SANTOS MOREL Rep #:[id number] : 1940 84 From: Yadira Pruett MD PCP: Dr. Yvan Rahman MD Status:ADM IN Location: ICU ICU01-1 HPI - General General Date of Admission: 08/19/24 Date of Service: 08/19/24 Chief Complaint: Altered mental status, nausea and vomiting HPI Narrative SANTOS MOREL, is a 84 M with a history of BPH, GERD, hypertension, hypothyroidism, diabetes presented [facility] ED 08/19/24 with nausea, vomiting, weakness and altered mental status. Reportedly he had been inhis usual health the day before but woke up at 4 AM with nausea and vomiting andwas feeling weak, noted he was very confused ultimately prompting her to bring him to the hospital, EMS noted patient was hypoxic to 80s and in the ED patient was tachypneic, tachycardic,and febrile and requiring 2 L of O2. Chestx- ray concerning for pneumonia so patient started on broad-spectrum antibiotics. He was also found to have an elevated lactic acid and was given IV fluids per sepsis protocol and hospitalist contacted for admission. Additionally patient was found to have urinary retention and had Suárez placed. History obtained primarily per report and from as patientis very tired and often will wake up any as somewhat difficult time answering questions though reportedly is more oriented now. Per he had a normal day yesterday and he did not know with her andwent to bed completely fine but this a.m. she heard him get up around 4 AM when he had at least 3 episodes of emesis and an episode of diarrhea and given his continued worsening he was brought to theED. Patient very tired but did wake up and answer questions more appropriately which is improved per . Patient reports he has been having cough but denies any abdominal pain, no more nausea or vomiting, denies being short of breath at present [facility] Medical History (Updated 08/19/24 @ 10:51 by Denilson Foley MD) Diabetes HTN (hypertension) Lung cancer Home Medications ?Medication ?Instructions ?Recorded ?Last Taken ?Type glimepiride 2 mg tablet 2 mg PO BID 07/22/13 5 History aspirin 81 mg tablet,delayed 81 mg PO DAILY 08/19/24 0 08/18/24 History release (Adult Aspirin Regimen) cholecalciferol (vitamin D3) 50 50 mcg PO DAILY 08/18/24 History mcg (2,000 unit) capsule levothyroxine 175 mcg tablet 175 mcg PO DAILY 08/19/24 08/18/24 History (Synthroid) losartan 100 mg tablet 100 mg PO DAILY 08/19/2401/04 History omeprazole 20 mg capsule,delayed 20 mg PO DAILY 08/18/24 History release pioglitazone 30 mg tablet 30 mg PO DAILY 08/19/2401/04 History pravastatin 40 mg tablet 40 mg PO DAILY 08/19/2401/04 History sitagliptin phos 100 mg-metformin 1 tab PO DAILY 08/1908/18/24 History ER 1,000 mg tablet,extend rel 24h mp (Janumet XR) tamsulosin 0.4 mg capsule 0.4 mg PO BID 08/19/2408/18 History Allergy/AdvReac Type Severity Reaction Status Date / Time Penicillins Allergy Swelling Verified 08/19/24 08:58 Surgical History (Updated 08/19/24 @ 09:18 by Luis Armando King) S/P lobectomy of lung Social History Smoking Status: Never smoker ROS ROS Narrative Patient denies any current nausea, vomiting, abdominal pain, no diarrhea since being in the ED, does report cough but no shortness of breath, patient very tired and had difficulty answering further ROS at this time Vital Signs Vital Signs Vital Signs: 08/19/24 08:58 08/19/24 09:08 08/19/24 09:08 Temperature 98.2 F 98.6 F Temperature Source Oral Oral Pulse Rate 130 H 130 H Respiratory Rate 18 28 H Respiratory Effort Respiratory Pattern Blood Pressure 174/86 H 174/86 H Blood Pressure Mean 115 115 Pulse Ox 91 92 Oxygen Delivery Method Room Air Room Air Nasal Cannula Oxygen Flow Rate (L/min) 2 08/19/24 09:17 08/19/24 10:05 08/19/24 10:28 Temperature 102.1 F H 102.3 F H Temperature Source Core Core Pulse Rate 116 H 115 H Respiratory Rate 28 H 30 H Respiratory Effort Normal Respiratory Pattern Normal Blood Pressure 145/64 H 123/70 H Blood Pressure Mean 91 87 Pulse Ox 93 94 Oxygen Delivery Method Nasal Cannula Nasal Cannula Oxygen Flow Rate (L/min) 2 2 Weight Weight: 91.2 kg Body Mass Index (BMI) 28.8 Physical Exam Narrative General: Patient sleeping, did eventually wake up but was very tired, initially said the wrong place but then corrected that he was in the hospital, seemed to answer most questions correctly but mostly tired now HEENT: Atraumatic, normocephalic Eyes: Anicteric, normal conjunctiva, extraocular movements grossly intact Neck: Supple Respiratory: Little bit coarse in the left base, tachypneic Cardiovascular: Sinus tachycardia GI: Soft, nontender, no significant distention without rebound, guarding, rigidity Extremities: Trace lower extremity edema Musculoskeletal: Moving all extremities Neuro: No overt focal neurological deficits Skin: Has some very small petechial looking area around his left wrist and hand after blood pressure cuff inflated and has not worsened Psych: Attempts to be cooperative Results Lab / Micro Data 08/19/24 08:42 08/19/24 08:42 Labs: Laboratory Results - last 24 hr 08/19/24 08:42: WBC 14.5 H, RBC 5.55, Hgb 15.9, Hct 46.5, MCV 83.8, MCH 28.6, MCHC 34.2, RDW Std Deviation 38.4, RDW Coeff of Yesenia 12.6, Plt Count 220, MPV 10.0, Immature Gran % (Auto) 0.500, Neut % (Auto) 89.9 H, Lymph % (Auto) 6.2 L, Coamo % (Auto) 3.0, Eos % (Auto) 0.1, Baso % (Auto) 0.3, AbsoluteNeuts (auto) 13.1 H, Absolute Lymphs (auto) 0.90, Nucleated RBC % 0, PT 14.7, INR 1.1, APTT 25.3, Sodium 135, Potassium 4.1, Chloride 97 L, Carbon Dioxide 15.5 L, Anion Gap23 H, BUN 22 H, Creatinine 1.18, Estim Creat Clear Calc 54.81, Est GFR (MDRD) Non-Af 62, BUN/Creatinine Ratio 18.8, Glucose 437H, Calcium 8.8, Total Bilirubin 1.11, AST 41 H, ALT 36, Alkaline Phosphatase 71, Total Protein 7.4,Albumin 4.2, Globulin 3.2, Albumin/Globulin Ratio 1.3, Lipase 28, b-Hydroxybutyric mmol/L 1.6 08/19/24 09:16: POC Glucose 375 H 08/19/24 09:35: Urine Color Straw, Urine Clarity Clear, Urine pH 5.0, Ur Specific Howes 1.015, Urine Protein 30 H, Urine Glucose (UA) 1000 H, Urine Ketones 50 H, Urine Occult Blood 10 H, Urine Nitrite Negative, Urine Bilirubin Negative, Urine Urobilinogen Normal, Ur Leukocyte Esterase Negative, Urine RBC 0-5 SEEN, Urine WBC 0-5 SEEN, Ur Squamous Epith Cells 0 SEEN, Urine Bacteria 0 SEEN, Urine Mucus 0 SEEN 08/19/24 09:37: Lactic Acid 6.3 H* Micro: Microbiology 08/19/24 09:01 Mucosa - Nose SARS-CoV-2, Influenza & RSV (PCR) - Final Imaging Radiology Impression Chest X-Ray 08/19/24 09:03 IMPRESSION: Prominent lung markings at the left lung base. Can not exclude a developing infiltrate. Elevation of the right hemidiaphragm. Reading Location: [place] [address] Assessment & Plan Assessment/Plan (1) Sepsis: (2) Urinary retention: (3) Pneumonia: (4) Mental status alteration: (5) Hyperglycemia: PLAN: Plan # Sepsis suspect secondary to pneumonia - Patient febrile, tachycardic, tachypneic with chest x-ray suggestive of pneumonia - Additionally elevated white blood cell count and elevated lactic acid, additionally hyperglycemicabove baseline -Patient additionally hypoxic when EMS arrived and had acute metabolic encephalopathy secondary to above - IV fluids per sepsis protocol - Patient to be admitted to the ICU with case making machine operator consult - Blood and urine culture sent, you did not appear overtly infectious at this time however - Patient will be covered for pneumonia, given penicillin allergy will avoid penicillins -DuoNebs and as needed albuterol -Sputum culture, COVID negative, respiratory panel ordered -Urine antigens -Mucinex, I/S - Broad-spectrum antibiotics given significance of illness # Hypoxia -suspect secondary to pneumonia and sepsis -Patient presently on 2 L O2, is tachypneic but to some extent suspect this is presently due to hisacidosis -Will monitor closely # Type 2 diabetes with significant hyperglycemia -Serum glucose in ED initially 473 with an anion gap of 22 however patient also has a lactic of 6.3so difficult to tell how much gap has been affected - Does have urine ketones however and does have an increase in beta hydroxybutyrate - Will give dose of IV insulin and schedule every 4 glucose checks with high correction factor, if this does not improve and beta hydroxybutyrate does not improve may need to make n.p.o. and have DKAprotocol -Aggressive fluid hydration - Glucose checks -I's and O's -A1c in the a.m. 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 Yvan Rahman MD; Dr. Yadira Pruett MD~ Signed [facility]04-09-2025 Radiology Diagnostic study note [facility] Imaging Services [address] [place], [place] [address] Chest 1 View (Portable) MR#: [id number] Acct: [id number] Name: SANTOS MOREL Rep #: [id number] : 1940 M 84 From: Tanvi Luke MD PCP: Dr. Yvan Rahman MD Status: REG ER Study:Chest 1 View (Portable) Date of Exam: 08/19/24 Exam# [id number] Ordering Dr: Denilson Foley MD PROCEDURE: CHEST 1 VIEW (PORTABLE) 08/19/2024 REASON FOR EXAM: WEAKNESS, HYPOXIA TECHNIQUE: Frontal view of the chest. COMPARISON: No relevant prior. FINDINGS: Lungs: Prominent lung markings at the left lung base. Pleura: No pleural effusions, thickening, or pneumothorax. Elevation of the right hemidiaphragm. Heart: Normal in size and configuration. Mediastinum/Audelia: Unremarkable. Great vessels: Aorta is atherosclerotic and tortuous. Bones/soft tissues: Multilevel spondylosis. Cardiac monitoring leads overlie the chest wall. RAD/Chest 1 View (Portable) IMPRESSION: Prominent lung markings at the left lung base. Can not exclude a developing infiltrate. Elevation of the right hemidiaphragm. Reading Location: [place] [address] CC: Dr. Denilson Foley MD; Dr. Yvan Rahman MD ~ Child Care Team Lead: Signed [facility]03-26-2025 NoteHNO ID: [id number] Author: BRI PAREDES LPN Service: ? Author Type: LICENSED NURSE Type: Progress Notes Filed: 08/05/2024 14:15 Note Text: EMG order, OV, AND demographics faxed to [facility], confirmation received. Bri Paredes LPN August 05, 2024 2:15 PM 08/05/2024 Sleep Apnea Probability Snores loudly: No Tired, fatigued or sleepy in daytime: Yes Stops breathing or choking/gasping during sleep: No High blood pressure: Yes Sleep Apnea Probability Score: 73 (Recommend sleep study)[facility]03-26-2025 History of Present illness Narrative* Bri Paredes LPN - 08/05/2024 2:15 PM EDT EMG order, OV, & demographics faxed to [facility], confirmation received. Bri Paredes LPN August 05, 2024 2:15 PM 08/05/2024 Sleep Apnea Probability Snores loudly: No Tired, fatigued or sleepy in daytime: Yes Stops breathing or choking/gasping during sleep: No High blood pressure: Yes Sleep Apnea Probability Score: 73 (Recommend sleep study) * Aletha Reynolds PA-C - 08/05/2024 12:19 PM EDT Images from the original note were not included. [facility] for [facility] Neurology Name: Santos Morel Age: [age] year old Gender: male Primary Care Provider: Yvan Rahman MD Consult requested for gait change by Yvan Rahman. Recommendations will be communicated via shared medical record or US mail. Chief Complaint:Established Patient (Abnormal gait, shuffles per family, tremor in left x1 yr) 08/05/2024 - General Neurology, Aletha Reynolds PA-C ASSESSMENT ASSESSMENT/PLAN: 1. Paresthesia of skin - ICD9: 782.0, ICD10: R20.2 (primary diagnosis) 2. Neuropathy - ICD9: 355.9, ICD10: G62.9 3. Shuffling gait - ICD9: 781.2, ICD10: R26.89 Patient with years of progressive gait change and imbalance. Resulting in multiple falls a year, typically outside due to instability. Also noted to have an occasional tremor typically in the morningper and very infrequent. There was some concerns for possible parkinsonism, patient does have minimal expressions to the face in a quiet voice but notes this has been unchanged in his baseline. No rigidity on exam, does have a shuffling gait but also with significant signs of neuropathy throughout the upper and lower extremities in a stocking glove distribution. Normal arm swing on exam. Does have some very minimal decrease rapid alternating movements on the left upper and lower extrem ity but not significant. Minimal Parkinson's symptoms as well, does have some REM sleep activity but otherwise no concerning signs of Parkinson's disease. At this time, concern primarily for neuropathy in the lower extremities, has had a borderline low B12 fluctuating for the last 3 years based on laboratory studies. Most recent was 380 a few weeks ago. Patient also with longstanding history of diabetes which has been fluctuating in A1c, most recent was 7.3 in June as well. Discussed an EMGto rule out alternative etiology for gait abnormality like lumbar stenosis versus neuropathy and patient is amenable to this. Will also obtain SPEP to ensure is no signs of gammopathy contributing tosensory changes on exam. Instructed patient to start supplementing B12 and will redraw in 6 months.Will continue to monitor symptoms as well, encouraged him to reach out should symptoms worsen or hehave any new symptoms. Patient and agreeable to treatment plan of care at this time, questionswere answered. Patient to follow- up in 5 months. Aletha Reynolds PA-C Encounter Diagnosis ICD-10-CM 1. Paresthesia of skin R20.2 PROTEIN ELECTROPHORESIS SERUM W/INTERP EMG(NEURO/NI) 2. Resting tremor G25.2 left thumb and pinkie 3. Bradykinesia R25.8 No follow-ups on file. Chart, labs,and relevant images reviewed. HPI: Concern for bradykinesia and tremor at PCP appt on 07/16/24. Patient presents with his for concern of gait change. noting this has been ongoing and worsening over the last few years. Notes that he falls a few times a year, this is getting worse as well over the last few years. Typically falls or outside and due to imbalance. notes that he can no longer walk a great distance and seems to fatigue easily. Patient does not feel that his walk is changed and does not have any concerns today. Denies any chronic back pain or lumbar issues. Does report numbness and tingling in the toes that is constant, has longstanding history of diabetes mellitus with fluctuating glucose control, last A1c was 7.3 in June. Never been diagnosed with neuropathy in the feet, does not take B complex, no heavy alcohol use or chemotherapy exposure. Does note that he was exposed to some chemicals while working 30 years at [employer]. Patient also with occasional shaking in the left hand or bilateral hands. notes that this is typically in the morning, brief and very infrequent. No resting tremor. Patient denies any difficultywith movements, anosmia, micrographia, voice change, apathy, constipation issue. Does occasionally kick in his sleep this has been an ongoing issue for many years and is very infrequent. Has fallen out of bed once in his life. No family history of Parkinson's disease or tremor, no neurologic disease in the family that he knows of. Patient's voice is quite today but notes this has been his voice his whole life. Denies any hallucinations or syncope. Review of Systems ACTIVE PROBLEM LIST Unspecified hearing loss Contact Dermatitis and Other Eczema, Due to Unspecified Cause Family history of ischemic heart disease Diverticulosis of Large Intestine Actinic Keratosis OVERWEIGHT Elevated C-Reactive Protein (Crp) Deviated Nasal Septum Palpitations Primary Thyroid Papillary Carcinoma (Hcc) History of Kidney Stones Diabetic Eye Exam (Hcc) Disorder of prostate Controlled Type 2 Diabetes Mellitus Without Complication, Without Long-Term Current Use of Insulin (Hcc) Mixed Hyperlipidemia Essential Hypertension Gastroesophageal Reflux Disease Without Esophagitis Benign Non-Nodular Prostatic Hyperplasia With Lower Urinary Tract Symptoms Upper back pain on left side Elevated Prostate Specific Antigen (Psa) Medicare Annual Wellness Visit, Subsequent Abnormal CT of Liver Hypomagnesemia Medication Management History of Lung Cancer Post-Surgical Hypothyroidism Living Will in Place Advance Directive Discussed With Patient Bilateral Carotid Artery Stenosis Chronic Left Shoulder Pain PAST MEDICAL HISTORY Diagnosis Date Abnormal CT of liver 07/07/2018 2017: suspected cirrhosis. Saw Dr. Rocha [facility] who felt this was not cirrhosis. Actinic keratosis 03/06/2007 Benign non-nodular prostatic hyperplasia with lower urinary tract symptoms 03/16/2015 History of BPH. takes flomax at home. Voiding without difficulty Plan; - resume flomax 09/29/2013 - voiding Calculus of kidney 02/11/2007 Contact dermatitis and other eczema, due to unspecified cause 02/11/2007 Bilateral metacarpals, elbow - mild Controlled type 2 diabetes mellitus without complication, without long-term current use of insulin ([facility]) 03/05/2015 Deviated nasal septum 06/15/2009 Diabetic eye exam ([facility]) 08/27/2014 Last done: 02/13/18 No Retinopathy Diverticulosis of large intestine 02/11/2007 Finding on Colonoscopy 2000 Elevated C-reactive protein (CRP) 08/27/2007 Elevated prostate specific antigen (PSA) 03/16/2015 Essential hypertension 03/05/2015 Family history of ischemic heart disease 02/11/2007 Father age 54 [place] Gastroesophageal reflux disease without esophagitis 03/05/2015 History of kidney stones 05/19/2014 History of lung cancer 01/20/2021 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 Released(01/07/2019) Hypomagnesemia 06/30/2019 Internal hemorrhoids without mention of complication Living will in place 08/02/2021 DPA: (Lisa) Lung cancer, upper lobe (HCC) 08/21/13: Right. NSCLC. Neg EBUS staging of mediastinum. Malignant neoplasm of upper lobe of right lung (HCC) 03/16/[address] Maria: Adenocarcinoma Stage IB, Refused chemo. Malignant neoplasm of upper lobe of right lung (HCC) 03/16/2015 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 Maria: Adenocarcinoma Stage IB, Refused chemo. 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 Carr[facility], Stapedectomy Upper back pain on left side 03/16/2015 VTE Prophylaxis 09/29/2013 The pt was on Lovenox 40mg SC daily and SCD for VTE prophylaxis. No signs or symptoms of DVT/PE. The patient is at High risk for VTE. Plan: - KATIE - Encourage continued ambulation . Medications: Reviewed levothyroxine (SYNTHROID) 175 mcg tablet Take 1 tablet by mouth once daily. Mon- Fri and two on Saturday and Saturday pioglitazone (ACTOS) 30 mg tablet Take 1 tablet by mouth once daily. pravastatin (PRAVACHOL) 40 mg tablet Take 1 tablet by mouth daily at bedtime. glimepiride (AMARYL) 2 mg tablet Take 1 tablet by mouth two times a day with meals. metFORMIN ER (GLUCOPHAGE XR) 500 mg 24 hr tablet TAKE 2 TABLETS BY MOUTH ONE TIME DAILY 12 HOURS APART FROM JANUMET SITagliptin-metFORMIN (JANUMET XR) 100-1,000 mg TM24 Take 1 tablet by mouth once daily. tamsulosin (FLOMAX) 0.4 mg Take 1 capsule by mouth two times a day. losartan (COZAAR) 100 mg tablet Take 1 tablet by mouth once daily. omeprazole (PRILOSEC) 20 mg capsule TAKE 1 CAPSULE DAILY DUPIXENT PEN 300 mg/2 mL pen Inject 300 mg subcutaneously every 3 weeks. Per Dr. Evans Sommer Cholecalciferol, Vitamin D3, 50 mcg (2,000 unit) cap Take by mouth once daily. ASPIRIN 81 MG TAB Take one(1) tablet daily. diphenoxylate-atropine (LOMOTIL) 2.5-0.025 mg per tablet Take 1 tablet by mouth two times a day as needed for diarrhea for up to 180 days. ALLERGIES Allergen Reactions Penicillins Unknown Not sure he has allergy FAMILY HISTORY Problem Relation Age of Onset Breast Cancer Mother age 51 Heart Father [place] age 54 Diabetes Sister Heart also Breast Cancer Sister Lung Cancer Sister None Sister None Brother PAST SURGICAL HISTORY Procedure Laterality Date CAROTID ULTRASOUND BILATERAL COLONOSCOPY FLX DX W/COLLJ SPEC WHEN PFRMD 2000 Colonoscopy COLONOSCOPY FLX DX W/COLLJ SPEC WHEN PFRMD 11/27/07 PAST SURGICAL HISTORY OF 09/28/2013 Rt upper lung lobectomy for CA RPR 1ST FEM HRNA ANY AGE REDUCIBLE STAPEDECTOMY/STAPEDOTOMY Left Ear STRESS (SPECT) 2004? Treadmill Stress Test, [place] STRESS TEST 07/08/2013 SOCIAL HISTORY Lives at home with his . No animals. Tobacco Use: Low Risk (08/05/2024) Patient History Smoking Tobacco Use: Never Smokeless Tobacco Use: Never Passive Exposure: Not on file PHYSICAL EXAM 08/05/24 1220 BP: 131/72 Pulse: 77 Neurological Exam Cognitive and Language: Alert and answered questions appropriately. Language was fluent. Followed simple and complex commands. Minimal facial expressions. Cranial Nerves: Visual cronin were full tested binocularly to finger counting in all 4 quadrants with no visual extinction. Pupils were equal and both reactive to light. Extraocular movements were full with no diplopia or nystagmus. Facial sensation was normal to light touch in V1 to V3. Facial strength was symmetric. Normal hearing grossly bilaterally. Palatal raise was symmetric. Shoulder shrug was symmetric. Tongue protrusion was symmetric with no fasciculations. Right Left Shoulder Abduction: 5 5 Elbow Extension 5 5 Elbow Flexion 5 5 Wrist Extension 5 5 Finger Extension 5 5 Finger Abduction 5 5 Right Left Hip Flexion 5 5 Knee Extension 5 5 Knee Flexion 5 5 Dorsiflexion 5 5 Plantar Flexion 5 5 Rest tremor: absent Tone: Normal in all four limbs, no rigidity present Reflexes: Absent reflexes to the patella and Achilles, 1/4 to the upper extremities bilaterally, negative May. Sensory: Near absent sensation to vibration at the great toe, decreased throughout the lower extremities and upper extremities improving proximally. Slight decrease in temperature in the lower extremities to the upper extremities, slightly worse on the left lower extremity. Very poor proprioceptionon Romberg testing. Coordination: Normal finger to nose. Positive Romberg. Gait is shuffled, patient seems to be dragging his feet bilaterally but with normal armswing. Negative retropulsion. Slight decrease in rapid alternating movements with the left upper extremity compared to the right, slight decrease in foot tapping on the left lower extremity but otherwise normal. Labs: Lab Results Component Value Date WBC 7.38 06/23/2024 HGB 14.0 07/24/2017 HCT 42.7 06/23/2024 MCV 86.3 06/23/2024 PLT 168 06/23/2024 Lab Results Component Value Date HBA1C 7.4 06/23/2024 HBA1C 6.7 12/18/2023 HBA1C 6.3 02/21/2023 HBA1C 7.2 01/18/2021 HBA1C 7.3 07/11/2020 HBA1C 6.5 01/05/2020 Total Cholesterol, Nonfasting Date Value Ref Range Status 06/23/2024 103 <200 mg/dL Final Comment: <200 mg/dL, Desirable 200-239 mg/dL, Borderline high >239 mg/dL, High HDL Cholesterol, Nonfasting Date Value Ref Range Status 06/23/2024 38 (L) >39 mg/dL Final Comment: 40-59 mg/dL, Acceptable >59 mg/dL, High: Negative risk factor for coronary heart disease <40 mg/dL, Low: Positive risk factor for coronary heart disease LDL Cholesterol, Nonfasting Date Value Ref Range Status 06/23/2024 42 <100 mg/dL Final Comment: <100 mg/dL, Optimal 100-129 mg/dL, Near optimal/above optimal 130-159 mg/dL, Borderline high 160-189 mg/dL, High >189 mg/dL, Very high Secondary prevention optimal LDL Cholesterol levels are recommended to be < 70 mg/dL Triglycerides, Nonfasting Date Value Ref Range Status 06/23/2024 114 <150 mg/dL Final Comment: <150 mg/dL, Normal 150-199 mg/dL, Borderline high 200-499 mg/dL, High >499 mg/dL, Very high Radiology: MRI Head/Brain - Last 2 Impressions MRI BRAIN WWO CONTRAST Collected: 08/28/2013 12:48 PM () This note was dictated using [employer] speech recognition software and may contain some errors that were a result of the program not accurately transcribing what was dictated, despite efforts to make corrections. Note that unless urgent, test and MRI results will be discussed at next follow- up visit. PROMIS (Patient-Reported Outcomes Measurement Information System) is a set of person-centered measures that evaluates and monitors physical, social, and emotional health. It can be used with the general population and with individuals living with chronic conditions. PROMIS 10: PHYSICAL AND MENTAL HEALTH: 07/16/2024 PHQ-9 PHQ-2 Score 0 Medical Decision Making: Medical Decision Making Level: 1 - N/A I spent a total of 50 minutes on the date of the service which included preparing to see the patient, [id number] patient care, completing clinical documentation, obtaining and/or reviewing separately obtained history, performing a medically appropriate examination, counseling and educating the pat ient/family/caregiver, and ordering medications, tests, or procedures. 08/05/2024 Sleep Apnea Probability Snores loudly: No Tired, fatigued or sleepy in daytime: Yes Stops breathing or choking/gasping during sleep: No High blood pressure: Yes Sleep Apnea Probability Score: 73 (Recommend sleep study) [facility] Instructions* Patient Instructions* Aletha Reynolds PA-C - 08/05/2024 1:07 PM EDT B12 supplementation with instructions below B12 <400: Vitamin B12 level <400, which indicates deficiency. You may start vitamin B12 supplements [available [id number]] orally, according to the following regimen: Vitamin B12, 2 mg (or 2000 micrograms) by mouth daily x1 month. Take together with folic acid 1 mg daily. THEN maintenance with 1 mg (or 1000 micrograms) daily thereafter. Your PCP may recheck vitamin B12 levels in about 6 months to ensure adequate repletion. EMG of the lower extremity Follow up in 5 months documented in [facility]25 NoteHNO ID: [id number] Author: ALETHA REYNOLDS PA-C Service: ? Author Type: Physician Sane Rn Type: Progress Notes Filed: 08/05/2024 13:32 Note Text: [facility] for General Neurology Name: Santos Morel Age: [age] year old Gender: male Primary Care Provider: Yvan Rahman MD Consult requested for gait change by vYan Rahman. Recommendations will be communicated via shared medical record or US mail. Chief Complaint:Established Patient (Abnormal gait, shuffles per family, tremor in left x1 yr) 08/05/2024 - General Neurology, Aletha Reynolds PA-C ASSESSMENT ASSESSMENT/PLAN: 1. Paresthesia of skin - ICD9: 782.0, ICD10: R20.2 (primary diagnosis) 2. Neuropathy - ICD9: 355.9, ICD10: G62.9 3. Shuffling gait - ICD9: 781.2, ICD10: R26.89 Patient with years of progressive gait change and imbalance. Resulting in multiple falls a year, typically outside due to instability. Also noted to have an occasional tremor typically in the morning per and very infrequent. There was some concerns for possible parkinsonism, patient does have minimal expressions to the face in a quiet voice but notes this has been unchanged in his baseline. No rigidity on exam, does have a shuffling gait but also with significant signs of neuropathy throughout the upper and lower extremities in a stocking glove distribution. Normal arm swing on exam. Does have some very minimal decrease rapid alternating movements on the left upper and lower extremity but not significant. Minimal Parkinson's symptoms as well, does have some REM sleep activity but otherwise no concerning signs of Parkinson's disease. At this time, concern primarily for neuropathy in the lower extremities, has had a borderline low B12 fluctuating for the last 3 years based on laboratory studies. Most recent was 380 a few weeks ago. Patient also with longstanding history of diabetes which has been fluctuating in A1c, most recent was 7.3 in June as well. Discussed an EMG to rule out alternative etiology for gait abnormality like lumbar stenosis versus neuropathy and patient is amenable to this. Will also obtain SPEP to ensure is no signs of gammopathy contributing to sensory changes on exam. Instructed patient to start supplementing B12 and will redraw in 6 months. Will continue to monitor symptoms as well, encouraged him to reach out should symptoms worsen or he have any new symptoms. Patient and agreeable to treatment plan of care at this time, questions were answered. Patient to follow-up in 5 months. Aletha Reynolds PA-C Encounter Diagnosis ICD-10-CM 1. Paresthesia of skin R20.2 PROTEIN ELECTROPHORESIS SERUM W/INTERP EMG(NEURO/NI) 2. Resting tremor G25.2 left thumb and pinkie 3. Bradykinesia R25.8 No follow-ups on file. Chart, labs,and relevant images reviewed. HPI: Concern for bradykinesia and tremor at PCP appt on 07/16/24. Patient presents with his for concern of gait change. noting this has been ongoing and worsening over the last few years. Notes that he falls a few times a year, this is getting worse as well over the last few years. Typically falls or outside and due to imbalance. notes that he can no longer walk a great distance and seems to fatigue easily. Patient does not feel that his walk is changed and does not have any concerns today. Denies any chronic back pain or lumbar issues. Does report numbness and tingling in the toes that is constant, has longstanding history of diabetes mellitus with fluctuating glucosecontrol, last A1c was 7.3 in June. Never been diagnosed with neuropathy in the feet, does not take B complex, no heavy alcohol use or chemotherapy exposure. Does note that he was exposed to some chemicals while working 30 years at [employer]. Patient also with occasional shaking in the left hand or bilateral hands. notes that this is typically in the morning, brief and very infrequent. No resting tremor. Patient denies any difficulty with movements, anosmia, micrographia, voice change, apathy, constipation issue. Does occasionally kick in his sleep this has been an ongoing issue for many years and is very infrequent. Has fallen out of bed once in his life. No family history of Parkinson's disease or tremor, no neurologic disease in the family that he knows of. Patient's voice is quite today but notes this has been his voice his whole life. Denies any hallucinations or syncope. Review of Systems ACTIVE PROBLEM LIST Unspecified hearing loss Contact Dermatitis and Other Eczema, Due to Unspecified Cause Family history of ischemic heart disease Diverticulosis of Large Intestine Actinic Keratosis OVERWEIGHT Elevated C-Reactive Protein (Crp) Deviated Nasal Septum Palpitations Primary Thyroid Papillary Carcinoma (Hcc) History of Kidney Stones Diabetic Eye Exam (Hcc) Disorder of prostate Controlled Type 2 Diabetes Melli (more content not included)...[facility]03-06-2025 History of Present illness Narrative* Yvan Rahman MD - 07/16/2024 11:20 AM EST Images from the original note were not included. Santos Morel is a 84 year old male here for a Medicare wellness visit. Medicare Health Risk Assessment General Health Good Exercise: Minutes/Day 0 min Exercise: Days/Week 0 days Alcohol: Daily Use Never Alcohol: Drinks/Day Patient does not drink Alcohol: 6 or more drinks Never Feel off balance Yes Concerns: Teeth/Dentures No Concerns: Sexual function No Troubled by feelings None of the above Frequency: Eating healthy diet Several days ADLs requiring help None of the above Safety precautions in home/vehicle Yes Smoke, vape, chews tobacco No Difficulty hearing Yes, I wear a hearing aid Difficulty seeing No Current Providers Specialists: I have reviewed specialist-related care of the patient in the medical record. Current care team: Patient Care Team: Yvan Rahman MD as PCP - General (Family Medicine) Bernice Maier APRN.ALAINA as Carpenter Helper (Family Medicine) Zahra Arias PA-C as Carpenter Helper (Family Medicine) Optho Medical/Family history review Reviewed and updated problem list, medical/surgical/family/social history, medications, and allergies. Opioid use review Opioid Medications (last 90 days) No data to display Anxiety/Depression screening Recommendation: no further intervention at this time Cognitive screening Mini Cog Score: 4 Cognitive screening reviewed and No further action needed (score 3-5). Functional Observation Was the patient's Timed Up & Go test unsteady or >= 12 seconds? No Advance Care Planning Surrogate decision maker documented and/or advance directives scanned in chart Measurements Pulse 108 Ht 178.4 cm (5' 10.25) Wt 88.5 kg (195 lb) SpO2 97% BMI 27.78 kg/m Vision Screening: Follows with optometry/ophthalmology Assessment/Plan Medicare annual wellness visit, subsequent (Z00.00) - Counseled on healthy diet and regular exercise - Fall avoidance information provided - Personalized prevention plan provided See below Chief Complaint Patient presents with: Medicare Wellness Exam HPI Santos Morel is a 84 year old male who presents here today for Chronic Medical Conditions. and Medicare Annual Visit. Patient with hx of DM2, HTN, hyperlipidemia, low magnesium, GERD, BPH, and those as below. Ref Range & Units 3 wk ago (06/23/24) 7 mo ago (12/18/23) 1 yr ago (02/21/23) 1 yr ago (08/16/22) 2 yr ago (02/05/22) 2 yr ago (07/21/21) 3 yr ago (01/18/21) Hemoglobin A1C 4.3 - 5.6 % 7.4 High 6.7 High CM 6.3 High CM 6.5 High CM 6.3 High CM 7.7 High CM 7. Patient see Ophthalmology last visit 03/2024 Patient's has noticed some shuffling with walking and asked him to bring this up. Past medical history, appointments, medications, allergies reviewed. Previous Medical History PAST MEDICAL HISTORY Diagnosis Date Abnormal CT of liver 07/07/2018 2017: suspected cirrhosis. Saw Dr. Rocha [facility] who felt this was not cirrhosis. Actinic keratosis 03/06/2007 Benign non-nodular prostatic hyperplasia with lower urinary tract symptoms 03/16/2015 History of BPH. takes flomax at home. Voiding without difficulty Plan; - resume flomax 09/29/2013 - voiding Calculus of kidney 02/11/2007 Contact dermatitis and other eczema, due to unspecified cause 02/11/2007 Bilateral metacarpals, elbow - mild Controlled type 2 diabetes mellitus without complication, without long-term current use of insulin ([facility]) 03/05/2015 Deviated nasal septum 06/15/2009 Diabetic eye exam ([facility]) 08/27/2014 Last done: 02/13/18 No Retinopathy Diverticulosis of large intestine 02/11/2007 Finding on Colonoscopy 2000 Elevated C-reactive protein (CRP) 08/27/2007 Elevated prostate specific antigen (PSA) 03/16/2015 Essential hypertension 03/05/2015 Family history of ischemic heart disease 02/11/2007 Father age 54 [place] Gastroesophageal reflux disease without esophagitis 03/05/2015 History of kidney stones 05/19/2014 History of lung cancer 01/20/2021 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 Released(01/07/2019) Hypomagnesemia 06/30/2019 Internal hemorrhoids without mention of complication Living will in place 08/02/2021 DPA: (Lisa) Lung cancer, upper lobe (HCC) 08/21/13: Right. NSCLC. Neg EBUS staging of mediastinum. Malignant neoplasm of upper lobe of right lung (HCC) 03/16/[address] Maria: Adenocarcinoma Stage IB, Refused chemo. Malignant neoplasm of upper lobe of right lung (HCC) 03/16/2015 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 Maria: Adenocarcinoma Stage IB, Refused chemo. 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 Carrion, [facility], Stapedectomy Upper back pain on left side 03/16/2015 VTE Prophylaxis 09/29/2013 The pt was on Lovenox 40mg SC daily and SCD for VTE prophylaxis. No signs or symptoms of DVT/PE. The patient is at High risk for VTE. Plan: - KATIE - Encourage continued ambulation . Previous Surgical History PAST SURGICAL HISTORY Procedure Laterality Date CAROTID ULTRASOUND BILATERAL COLONOSCOPY FLX DX W/COLLJ SPEC WHEN PFRMD 2000 Colonoscopy COLONOSCOPY FLX DX W/COLLJ SPEC WHEN PFRMD 11/27/07 PAST SURGICAL HISTORY OF 09/28/2013 Rt upper lung lobectomy for CA RPR 1ST FEM HRNA ANY AGE REDUCIBLE STAPEDECTOMY/STAPEDOTOMY Left Ear STRESS (SPECT) 2004? Treadmill Stress Test, [place] STRESS TEST 07/08/2013 NL Family History FAMILY HISTORY Problem Relation Age of Onset Breast Cancer Mother age 51 Heart Father [place] age 54 Diabetes Sister Heart also Breast Cancer Sister Lung Cancer Sister None Sister None Brother Patient Allergies ALLERGIES Allergen Reactions Penicillins Unknown Not sure he has allergy Current Medications Current Outpatient Medications on File Prior to Visit Medication Sig pravastatin (PRAVACHOL) 40 mg tablet Take 1 tablet by mouth daily at bedtime. glimepiride (AMARYL) 2 mg tablet Take 1 tablet by mouth two times a day with meals. metFORMIN ER (GLUCOPHAGE XR) 500 mg 24 hr tablet TAKE 2 TABLETS BY MOUTH ONE TIME DAILY 12 HOURS APART FROM JANUMET metFORMIN ER (GLUCOPHAGE XR) 500 mg 24 hr tablet TAKE 2 TABLETS BY MOUTH ONE TIME DAILY 12 HOURS APART FROM SITagliptin-metFORMIN (JANUMET XR) 100-1,000 mg TM24 Take 1 tablet by mouth once daily. tamsulosin (FLOMAX) 0.4 mg Take 1 capsule by mouth two times a day. levothyroxine (SYNTHROID) 175 mcg tablet Take 1 tablet by mouth once daily. Sat- Sat and two on Saturday losartan (COZAAR) 100 mg tablet Take 1 tablet by mouth once daily. diphenoxylate-atropine (LOMOTIL) 2.5-0.025 mg per tablet Take 1 tablet by mouth two times a day as needed for diarrhea for up to 180 days. omeprazole (PRILOSEC) 20 mg capsule TAKE 1 CAPSULE DAILY DUPIXENT PEN 300 mg/2 mL pen Inject 300 mg subcutaneously every [address] Evans Sommer Cholecalciferol, Vitamin D3, 50 mcg (2,000 unit) cap Take by mouth once daily. ASPIRIN 81 MG TAB Take one(1) tablet daily. No current facility-administered medications on file prior to visit. Social History Social History Tobacco Use Smoking status: Never Smokeless tobacco: Never Tobacco comments: Parents and spouse non smokers. Vaping Use Vaping status: Never Used Substance Use Topics Alcohol use: No Drug use: No Review of Symptoms REVIEW OF SYSTEMS GENERAL: No weight loss, malaise or fevers HEENT: Negative for frequent or significant headaches, No changes in hearing or vision, no nose bleeds or other nasal problems NECK: Negative for lumps, goiter, pain and significant neck swelling RESPIRATORY: Negative for cough, hemoptysis, wheezing, COPD, dyspnea or shortness of breath CARDIOVASCULAR: Negative for chest pain, leg swelling, hypertension, CHF or palpitations GI: No nausea, vomiting, or increased diarrhea, No frequent heartburn or reflux symptoms, and no blood : No history of dysuria, frequency or blood MUSCULOSKELETAL: Negative for joint pain or swelling, back pain or muscle pain SKIN: seeing derm PSYCH: Negative for sleep disturbance, mood disorder and recent psychosocial stressors HEMATOLOGY/LYMPHOLOGY: Negative for prolonged bleeding, bruising easily or swollen nodes ENDOCRINE: Negative for cold or heat intolerance, symptoms of low BS's NEURO: No history of headaches, syncope, paralysis, seizures. Patient's has noted he shuffles when he walks and feet may drag. He had a fall about a month ago after taking th trash can out. He fell into the sliding glass door and bruised his nose. No LOC. Could move his arms and legs just feltlike it was easier to fall than to stay standing. This happened once before a year prior. No recurrence since. Patient notes a tremor in the left thumb and pinkie at times. EXAM: BP 130/64 Pulse 108 Ht 178.4 cm (5' 10.25) Wt 88.5 kg (195 lb) SpO2 97% BMI 27.78 kg/m Last 5 Encounter Wt Readings: Date: Wt: 07/16/2024 88.5 kg (195 lb) 12/18/2023 89.2 kg (196 lb 10.4 oz) 04/10/2023 85.7 kg (189 lb) 04/08/2023 86.6 kg (191 lb) 02/25/2023 89.4 kg (197 lb) General Appearance: Well appearing, alert, in no acute distress, well-hydrated, well nourished. andOverweight. Skin: see Derm. Head: Normocephalic, no masses, lesions, tenderness or abnormalities. Eyes: Anicteric sclera. Pupils are equally round and reactive to light. Extraocular movements are intact. . Ears: External ears, TM's normal, canals clear. Nose/Sinuses: Nares normal, septum midline, mucosa normal, no drainage or sinus tenderness. Oropharynx: Lips, mucosa, and tongue normal, teeth and gums normal, oropharynx normal. Neck: Supple, no adenopathy; thyroid symmetric, normal size, no bruits. Lungs: Lungs clear to auscultation. No wheezing, rhonchi, rales.. Heart: RRR without murmur, gallop, or rubs. No ectopy. Abdomen: Normal abdominal exam, Abdomen soft, non-tender. Bowel sounds normal. No masses, organomegaly. Extremities: No deformities, edema, skin discoloration, clubbing or cyanosis. Good capillary refill. . Musculoskeletal: Muscular strength intact, No joint swelling, deformity, or tenderness. There is coag wheeling on the left upper Ext. On walking there is a mild shuffle to his gate and a slight bradykinesia on turning. Peripheral Pulses: Normal. Neurologic: Gait normal. Sensation to light touch and crainal nerves 2-12 intact.. Genitalia: declined.. Health Maintenance List Depression Screening Never done Anxiety Screening Never done RSV Vaccine(1 - 1-dose 75+ series) Never done Diabetic Foot Exam due on 08/24/2023 Influenza Vaccine(1) due on 01/12/2024 Covid-19 Vaccine( - 2023-25 season) due on 01/12/2024 Advance Directive Discussion due on 05/13/2024 HbA1C due on 12/21/2024 Dilated Retinal Exam due on 03/31/2025 Urine Albumin:Creatinine Ratio due on 06/23/2025 LDL Cholesterol due on 06/23/2025 DTaP,Tdap,Td Vaccine(4 - Td or Tdap) due on 01/11/2028 Pneumococcal Vaccine: 50+ Completed Colorectal Cancer Screening Discontinued Shingrix Vaccine Discontinued Data reviewed Latest Ref Rng 12/18/2023 06/23/2024 WBC 3.70 - 11.00 k/uL 7.60 7.38 RBC 4.20 - 6.00 m/uL 4.98 4.95 Hemoglobin 13.0 - 17.0 g/dL 14.1 14.1 Hematocrit 39.0 - 51.0 % 42.5 42.7 MCV 80.0 - 100.0 fL 85.3 86.3 MCH 26.0 - 34.0 pg 28.3 28.5 MCHC 30.5 - 36.0 g/dL 33.2 33.0 RDW-CV 11.5 - 15.0 % 12.8 13.1 Platelet Count 150 - 400 k/uL 176 168 MPV 9.0 - 12.7 fL 10.5 9.8 Neut% % 72.5 70.6 Abs Neut (ANC) 1.45 - 7.50 k/uL 5.51 5.21 Lymph% % 17.2 20.3 Abs Lymph 1.00 - 4.00 k/uL 1.31 1.50 [place]% % 7.2 6.0 Abs [place] <0.87 k/uL 0.55 0.44 Eosin% % 2.0 2.2 Abs Eosin <0.46 k/uL 0.15 0.16 Baso% % 0.4 0.4 Abs Baso <0.11 k/uL 0.03 0.03 Immature Gran % % 0.7 0.5 IMMATURE GRANS (ABS) <0.10 k/uL 0.05 0.04 NRBC /100 WBC 0.0 0.0 Absolute nRBC <0.01 k/uL <0.01 <0.01 DTYPE Auto Auto Color Yellow Yellow Yellow Clarity Clear Clear Clear Glucose, Urine Negative 2+ ! Trace ! Bilirubin, Urine Negative Negative Negative Ketones, Urine Negative 1+ ! 1+ ! Specific Howes, Ur 1.005 - 1.030 1.027 1.028 Hemoglobin/Blood,Ur Negative Negative Negative pH, Urine <8.5 5.5 5.5 Protein, Urine Negative Trace ! Trace ! Urobilinogen 0.2-1.0 EU/dL 1.0 EU/dL 1.0 EU/dL Nitrites Negative Negative Negative Leukest Negative Negative Negative WBC, Urine 0-5 /HPF 0-5 /HPF 0-5 /HPF RBC, Urine 0-2 /HPF 0-2 /HPF 0-2 /HPF Bacteria Negative /HPF Negative Negative Epithelial Cells /HPF None Seen None Seen Hyaline Cast 0 /LPF 0 /LPF 0 /LPF Protein, Total 6.3 - 8.0 g/dL 6.7 6.5 Albumin 3.9 - 4.9 g/dL 4.0 4.2 Calcium 8.5 - 10.2 mg/dL 9.2 9.2 Bilirubin, Total 0.2 - 1.3 mg/dL 0.6 0.8 Alkaline Phosphatase 38 - 113 U/L 52 68 AST 14 - 40 U/L 20 24 ALT 10 - 54 U/L 24 33 Glucose 74 - 99 mg/dL 238 (H) 282 (H) BUN 9 - 24 mg/dL 19 20 Creatinine 0.73 - 1.22 mg/dL 1.05 1.08 Sodium 136 - 144 mmol/L 138 140 Potassium 3.7 - 5.1 mmol/L 4.6 4.6 Chloride 98 - 107 mmol/L 103 101 CO2 22 - 30 mmol/L 23 25 Anion Gap 8 - 15 mmol/L 12 14 eGFR >=60 mL/min/1.73m 71 69 Total Cholesterol, Nonfasting <200 mg/dL 92 103 Triglycerides, Nonfasting <150 mg/dL 166 (H) 114 HDL Cholesterol, Nonfasting >39 mg/dL 34 (L) 38 (L) LDL Cholesterol, Nonfasting <100 mg/dL 25 42 Non HDL Cholesterol, Nonfasting <130 mg/dL 58 65 VLDL Cholesterol, Nonfasting <30 mg/dL 33 (H) 23 Total Chol/HDL Ratio, Nonfasting <5.10 mg/dL 2.71 2.71 LDL/HDL Ratio, Nonfasting <2.54 mg/dL 0.74 1.11 Creatinine, Ur Random (UCRR) 46.8 - 314.5 mg/dL 194.3 209.6 Albumin, Urine Random mg/L 28.4 35.9 Albumin/Creat Ratio <30 mg/g 15 17 Hemoglobin A1C 4.3 - 5.6 % 6.7 (H) 7.4 (H) Estimated Average Glucose mg/dL 146 166 PSA <2.60 ng/mL 3.83 (H) PSA, Percent Free % 15 Thyroglobulin Ab, Serum <4.0 IU/mL <0.9 <0.9 Thyroglobulin, Serum 1.6 - 50.0 ng/mL 4.7 TSH 0.270 - 4.200 mIU/L 0.309 2.130 Magnesium 1.7 - 2.3 mg/dL 1.7 1.4 (L) Vitamin B12 232 - 1,245 pg/mL 394 380 A/P ASSESSMENT/PLAN: 1. Medicare annual wellness visit, subsequent - ICD9: V70.0, ICD10: Z00.00 (primary diagnosis) - Counseled on healthy diet and regular exercise - Discussed need for and benefit of weight loss. BMI 27.78 kg/(m^2) - Follow up for annual exam in one year - advised on getting RSV vaccine. 2. Controlled type 2 diabetes mellitus without complication, without long-term current use of insulin (HCC) - ICD9: 250.00, ICD10: E11.9 - Uncontrolled - Worsening control - with the diarrhea issues will stop the night time dose of metformin 500 mg two PM and replace it with Actos 30 mg. Will continue the janumet 100/1000 in the AM. - Counseled on healthy diet and regular exercise - Discussed need for and benefit of weight loss. BMI 27.78 kg/(m^2) - patient indulged in some chocolate over the holidays which he does not do routinely. 3. Diabetic eye exam (HCC) - ICD9: V72.0, 250.00, ICD10: Z01.00, E11.9 - up to date 4. Essential hypertension - ICD9: 401.9, ICD10: I10 - Controlled - Continue current medications - Recommend home blood pressure monitoring, to bring results to next visit - Encouraged sodium restriction, DASH or Mediterranean diet - Recommend regular aerobic exercise - Discussed need for and benefit of weight loss. BMI 27.78 kg/(m^2) 5. Mixed hyperlipidemia - ICD9: 272.2, ICD10: E78.2 - Controlled - Improving control - Continue current medications - Counseled on healthy diet and regular exercise - Discussed need for and benefit of weight loss. BMI 27.78 kg/(m^2) 6. Post-surgical hypothyroidism - ICD9: 244.0, ICD10: E89.0 - Instructed patient on importance of taking on an empty stomach either first thing in the morning or at bedtime. Uncontrolled. Goal is a TSH: 0.1-0.5 - change the levothyroxine 175 mcg to one daily Mon-Fri and Two on Sat and Sun. In two months check - THYROID STIMULATING HORMONE 7. Primary thyroid papillary carcinoma (HCC) - ICD9: 193, ICD10: C73 - as per #6 - LEVOTHYROXINE 175 MCG TABLET - THYROID STIMULATING HORMONE 8. Gastroesophageal reflux disease without esophagitis - ICD9: 530.81, ICD10: K21.9 - Continue treatment with Prilosec 20 mg QD 9. Bilateral carotid artery stenosis - ICD9: 433.10, 433.30, ICD10: I65.23 - cont current meds. - check US in 2025 10. Hypomagnesemia - ICD9: 275.2, ICD10: E83.42 - typically has been fine the past few years. Currently is low In two months check - MAGNESIUM 11. Benign non-nodular prostatic hyperplasia with lower urinary tract symptoms - ICD9: 600.91, ICD10: N40.1 - stable. PSA has remained stable. 12. Advance directive discussed with patient - ICD9: V65.49, ICD10: Z71.89 - up to date 13. Screening for depression - ICD9: V79.0, ICD10: Z13.31 - DEPRESSION SCREENING 14. Encounter for screening examination for other mental health and behavioral disorders - ICD9: V79.8, ICD10: Z13.39 - ANXIETY SCREENING 15. Resting tremor - ICD9: 781.0, ICD10: G25.2 - new - CONSULT TO NEUROLOGY 16. Bradykinesia - ICD9: 781.0, ICD10: R25.8 - new - CONSULT TO NEUROLOGY F/u 6 months routine check A1c, TSH, lipid, Mg prior I spent a total of 63 minutes on the date of the service which included preparing to see the patient, [id number] patient care, completing clinical documentation, performing a medically appropriate examination, counseling and educating the patient/family/caregiver and ordering medications, tests, or procedures. Yvan Rahman MD documented in this encounterJoint [facility]03-[facility]25 NoteHNO ID: [id number] Author: YVAN RAHMAN MD Service: ? Author Type: Physician Type: Progress Notes Filed: 07/16/2024 12:35 Note Text: Santos Morel is a 84 year old male here for a Medicare wellness visit. Medicare Health Risk Assessment General Health Good Exercise: Minutes/Day 0 min Exercise: Days/Week 0 days Alcohol: Daily Use Never Alcohol: Drinks/Day Patient does not drink Alcohol: 6 or more drinks Never Feel off balance Yes Concerns: Teeth/Dentures No Concerns: Sexual function No Troubled by feelings None of the above Frequency: Eating healthy diet Several days ADLs requiring help None of the above Safety precautions in home/vehicle Yes Smoke, vape, chews tobacco No Difficulty hearing Yes, I wear a hearing aid Difficulty seeing No Current Providers Specialists: I have reviewed specialist-related care of the patient in the medical record. Current care team: Patient Care Team: Yvan Rahman MD as PCP - General (Family Medicine) Bernice Maier APRN.ALAINA as Carpenter Helper (Family Medicine) Zahra Arias PA-C as Carpenter Helper (Family Medicine) Optho Medical/Family history review Reviewed and updated problem list, medical/surgical/family/social history, medications, and allergies. Opioid use review Opioid Medications (last 90 days) No data to display Anxiety/Depression screening Recommendation: no further intervention at this time Cognitive screening Mini Cog Score: 4 Cognitive screening reviewed and No further action needed (score 3-5). Functional Observation Was the patient's Timed Up AND Go test unsteady or >= 12 seconds? No Advance Care Planning Surrogate decision maker documented and/or advance directives scanned in chart Measurements Pulse 108 Ht 178.4 cm (5' 10.25) Wt 88.5 kg (195 lb) SpO2 97% BMI 27.78 kg/m? Vision Screening: Follows with optometry/ophthalmology Assessment/Plan Medicare annual wellness visit, subsequent (Z00.00) - Counseled on healthy diet and regular exercise - Fall avoidance information provided - Personalized prevention plan provided See below Chief Complaint Patient presents with: Medicare Wellness Exam HPI Santos Morel is a 84 year old male who presents here today for Chronic Medical Conditions. and Medicare Annual Visit. Patient with hx of DM2, HTN, hyperlipidemia, low magnesium, GERD, BPH, and those as below. Ref Range AND Units 3 wk ago (06/23/24) 7 mo ago (12/18/23) 1 yr ago (02/21/23) 1 yr ago (08/16/22) 2 yr ago (02/05/22) 2 yr ago (07/21/21) 3 yr ago (01/18/21) Hemoglobin A1C 4.3 - 5.6 % 7.4 High 6.7 High CM 6.3 High CM 6.5 High CM 6.3 High CM 7.7 High CM 7. Patient see Ophthalmology last visit 03/2024 Patient's has noticed some shuffling with walking and asked him to bring this up. Past medical history, appointments, medications, allergies reviewed. Previous Medical History PAST MEDICAL HISTORY Diagnosis Date Abnormal CT of liver 07/07/2018 2017: suspected cirrhosis. Saw Dr. Rocha [facility] who felt this was not cirrhosis. Actinic keratosis 03/06/2007 Benign non-nodular prostatic hyperplasia with lower urinary tract symptoms 03/16/2015 History of BPH. takes flomax at home. Voiding without difficulty Plan; - resume flomax 09/29/2013 - voiding Calculus of kidney 02/11/2007 Contact dermatitis and other eczema, due to unspecified cause 02/11/2007 Bilateral metacarpals, elbow - mild Controlled type 2 diabetes mellitus without complication, without long-term current use of insulin ([facility]) 03/05/2015 Deviated nasal septum 06/15/2009 Diabetic eye exam ([facility]) 08/27/2014 Last done: 02/13/18 No Retinopathy Diverticulosis of large intestine 02/11/2007 Finding on Colonoscopy 2000 Elevated C-reactive protein (CRP) 08/27/2007 Elevated prostate specific antigen (PSA) 03/16/2015 Essential hypertension 03/05/2015 Family history of ischemic heart disease 02/11/2007 Father age 54 [place] Gastroesophageal reflux disease without esophagitis 03/05/2015 History of kidney stones 05/19/2014 History of lung cancer 01/20/2021 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 Released (01/07/2019) Hypomagnesemia 06/30/2019 Internal hemorrhoids without mention of complication Living will in place 08/02/2021 DPA: (Lisa) Lung cancer, upper lobe (HCC) 08/21/13: Right. NSCLC. Neg EBUS staging of mediastinum. Malignant neoplasm of upper lobe of right lung (HCC) 03/16/[address] Maria: Adenocarcinoma Stage IB, Refused chemo. Malignant neoplasm of upper lobe of right lung (HCC) 03/16/2015 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 Maria: Adenocarcinoma Stage IB, Refused chemo. 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 We increased your levothyroxine 175 mcg to taking it: one tab Sat-Sat and two on Saturday and Saturday Please get repeat thyroid lab and Magnesium lab on or after 09/15/24 We are going to continue the blue pill in the AM (sitagliptin/metformin) and stop the metformin 500mg two at night. To see if the diarrhea reduces. We will replace the night time metformin with Actos (pioglitazone) 30 mg a day. You can take it at night or in the AM. It does not matter. Please get labs done on or after 01/01/2025 prior to your next visit. Screening schedule The following prevention plan is recommended: Depression Screening Never done Anxiety Screening Never done RSV Vaccine(1 - 1-dose 75+ series) Never done Diabetic Foot Exam due on 08/24/2023 Influenza Vaccine(1) due on 01/12/2024 Covid-19 Vaccine( season) due on 01/12/2024 Advance Directive Discussion due on 05/13/2024 WHAT YOU CAN DO TO PREVENT FALLS Many falls can be prevented. By making some changes, you can lower your chances of falling. Four things YOU can do to prevent falls for you* and your caregiver 1. Begin a regular exercise program Exercise is one of the most important ways to lower your chances of falling. It makes you stronger and helps you feel better. Exercises that improve balance and coordination (like Mannie Chi) are the most helpful. Lack of exercise leads to weakness and increases your chances of falling. Ask your doctor or health care provider about the best type of exercise program for you. 2. Have your health care provider review your medicines Have your doctor or pharmacist review all the medicines you take, even igeh-lhr-vamsemu medicines. As you get older, the way medicines work in your body can change. Some medicines, or combinations of medicines, can make you sleepy or dizzy andcan cause you to fall. 3. Have your vision checked Have your eyes checked by an eye doctor at least once a year. You may be wearing the wrong glasses or have a condition like glaucoma or cataracts that limits your vision. Poor vision can increase your chances of falling. 4. Make your home safer About half of all falls happen at home. To make your home safer: Remove things you can trip over (like papers, books, clothes, and shoes) from stairs and places where you walk. Remove small throw rugs or use double-sided tape to keep the rugs from slipping. Keep items you use often in cabinets you can reach easily without using a step stool. Have grab bars put in next to your toilet and in the tub or shower. Use non-slip mats in the bathtub and on shower floors. Improve the lighting in your home. As you get older, you need brighter lights to see well. Hang light-weight curtains or shades to reduce glare. Have handrails and lights put in on all staircases. Wear shoes both inside and outside the house. Avoid going barefoot or wearing slippers. For more information, contact: Centers for Disease Control and Prevention www.cdc.gov/injury * This information may not apply if you have certain medical conditions. documented in this encounterJoint [facility]02-28-2025 Telephone encounter Note * Telephone Encounter - Yvan Rahman MD - 07/10/2024 4:11 PM EST The following approved medication requests have been transmitted electronically. Requested Prescriptions Signed Prescriptions Disp Refills pravastatin (PRAVACHOL) 40 mg tablet 90 tablet 1 Sig: Take 1 tablet by mouth daily at bedtime. Authorizing Provider: YVAN RAHMAN MD [facility]02-28-2025 Miscellaneous Notes* Telephone Encounter - Yvan Rahman MD - 07/10/2024 4:11 PM EST The following approved medication requests have been transmitted electronically. Requested Prescriptions Signed Prescriptions Disp Refills pravastatin (PRAVACHOL) 40 mg tablet 90 tablet 1 Sig: Take 1 tablet by mouth daily at bedtime. Authorizing Provider: YVAN RAHMAN MD * Telephone Encounter - Carlos A Morrison LPN - 07/10/2024 2:25 PM EST Prescription Refill Information The patient has been identified by name and date of : Yes Caregiver verified no other encounters exist for this prescription request: Yes Caregiver confirmed with patient/requestor that no other refills are due, in the near future, with this provider at this time: Yes The last office visit in the department: 12/18/23 Does the patient have a future office visit with this provider/department: Yes Requested Prescriptions Pending Prescriptions Disp Refills pravastatin (PRAVACHOL) 40 mg tablet 90 tablet 1 Sig: Take 1 tablet by mouth daily at bedtime. Carlos A Morrison LPN July 10, 2024 2:26 PM documented in this encounterJoint [facility]02-28-2025 Telephone encounter Note * Telephone Encounter - Carlos A Morrison LPN - 07/10/2024 2:25 PM EST Prescription Refill Information The patient has been identified by name and date of : Yes Caregiver verified no other encounters exist for this prescription request: Yes Caregiver confirmed with patient/requestor that no other refills are due, in the near future, with this provider at this time: Yes The last office visit in the department: 12/18/23 Does the patient have a future office visit with this provider/department: Yes Requested Prescriptions Pending Prescriptions Disp Refills pravastatin (PRAVACHOL) 40 mg tablet 90 tablet 1 Sig: Take 1 tablet by mouth daily at bedtime. Carlos A Morrison LPN July 10, 2024 2:26 PM [facility]02-24-2025 Telephone encounter Note* Telephone Encounter - Fletcher Parks MA - 07/06/2024 11:05 AM EST Prescription Refill Information The patient has been identified by name and date of : Yes Caregiver verified no other encounters exist for this prescription request: Yes Caregiver confirmed with patient/requestor that no other refills are due, in the near future, with this provider at this time: Yes The last office visit in the department: 12/2023 Does the patient have a future office visit with this provider/department: Yes Requested Prescriptions Pending Prescriptions Disp Refills glimepiride (AMARYL) 2 mg tablet 180 tablet 1 Sig: Take 1 tablet by mouth two times a day with meals. Fletcher Parks MA July 06, 2024 11:05 AM [facility]02-24-2025 Miscellaneous Notes* Telephone Encounter - Fletcher Parks MA - 07/06/2024 11:05 AM EST Prescription Refill Information The patient has been identified by name and date of : Yes Caregiver verified no other encounters exist for this prescription request: Yes Caregiver confirmed with patient/requestor that no other refills are due, in the near future, with this provider at this time: Yes The last office visit in the department: 12/2023 Does the patient have a future office visit with this provider/department: Yes Requested Prescriptions Pending Prescriptions Disp Refills glimepiride (AMARYL) 2 mg tablet 180 tablet 1 Sig: Take 1 tablet by mouth two times a day with meals. Fletcher Parks MA July 06, 2024 11:05 AM documented in this encounterJoint [facility]02-10-2025 Telephone encounter Note * Telephone Encounter - Iman Winn LPN - 06/22/2024 12:17 PM EST Left a detailed message for with message below. Iman Winn LPN [facility]02-10-2025 Miscellaneous Notes* Telephone Encounter - Iman Winn LPN - 06/22/2024 12:17 PM EST Left a detailed message for with message below. Iman Winn LPN * Telephone Encounter - Yvan Rahman MD - 06/22/2024 8:36 AM EST Let know blood and urine lab orders placed. * Telephone Encounter - Iman Winn LPN - 06/22/2024 8:03 AM EST calling to see if you want pt to get any blood work done. Pt has a Medicare Wellness apt on Saturday06-24-24. Please advise . Iman Winn LPN documented in this encounterJoint [facility]02-10-2025 Telephone encounter Note * Telephone Encounter - Yvan Rahman MD - 06/22/2024 8:36 AM EST Let know blood and urine lab orders placed. [facility]02-10-[facility] Telephone encounter Note* Telephone Encounter - Iman Winn LPN - 06/22/2024 8:03 AM EST calling to see if you want pt to get any blood work done. Pt has a Medicare Wellness apt on Saturday06-24-24. Please advise . Iman Winn LPN [facility]01-16-2025 Telephone encounter Note* Telephone Encounter - Ute Marr MA - 05/28/2024 11:29 AM EST Notified via [employer]. Ute Marr MA [facility]01-16-2025 Miscellaneous Notes* Telephone Encounter - Ute Marr MA - 05/28/2024 11:29 AM EST Notified via [employer]. Ute Marr MA * Telephone Encounter - Yvan Rahman MD - 05/28/2024 11:22 AM EST Let patient know new script sent to mail away and [facility] The following approved medication requests have been transmitted electronically. Requested Prescriptions Signed Prescriptions Disp Refills metFORMIN ER (GLUCOPHAGE XR) 500 mg 24 hr tablet 180 tablet 1 Sig: TAKE 2 TABLETS BY MOUTH ONE TIME DAILY 12 HOURS APART FROM JANUMET Authorizing Provider: YVAN RAHMAN metFORMIN ER (GLUCOPHAGE XR) 500 mg 24 hr tablet 28 tablet 0 Sig: TAKE 2 TABLETS BY MOUTH ONE TIME DAILY 12 HOURS APART FROM JANUMET Authorizing Provider: YVAN RAHMAN MD * Telephone Encounter - Ute Marr MA - 05/28/2024 11:03 AM EST Prescription Refill Information The patient has been identified by name and date of : Yes Caregiver verified no other encounters exist for this prescription request: Yes Caregiver confirmed with patient/requestor that no other refills are due, in the near future, with this provider at this time: No The last office visit in the department: 12/18/23 Does the patient have a future office visit with this provider/department: Yes Requested Prescriptions Pending Prescriptions Disp Refills metFORMIN ER (GLUCOPHAGE XR) 500 mg 24 hr tablet 180 tablet 1 Sig: TAKE 2 TABLETS BY MOUTH ONE TIME DAILY 12 HOURS APART FROM JANUMET Patient Comment: Huy is totally out of Metformin. [facility] say the Dr has not approved a renewal?? Is it safe just to abruptly stop it? Ute Marr MA May 28, 2024 11:03 AM documented in this encounterJoint [facility]01-16-2025 Telephone encounter Note * Telephone Encounter - Yvan Rahman MD - 05/28/2024 11:22 AM EST Let patient know new script sent to mail away and [facility]. The following approved medication requests have been transmitted electronically. Requested Prescriptions Signed Prescriptions Disp Refills metFORMIN ER (GLUCOPHAGE XR) 500 mg 24 hr tablet 180 tablet 1 Sig: TAKE 2 TABLETS BY MOUTH ONE TIME DAILY 12 HOURS APART FROM JANUMET Authorizing Provider: YVAN RAHMAN metFORMIN ER (GLUCOPHAGE XR) 500 mg 24 hr tablet 28 tablet 0 Sig: TAKE 2 TABLETS BY MOUTH ONE TIME DAILY 12 HOURS APART FROM JANUMET Authorizing Provider: YVAN RAHMAN MD [facility]01-16-2025 Telephone encounter Note* Telephone Encounter - Ute Marr MA - 05/28/2024 11:03 AM EST Prescription Refill Information The patient has been identified by name and date of : Yes Caregiver verified no other encounters exist for this prescription request: Yes Caregiver confirmed with patient/requestor that no other refills are due, in the near future, with this provider at this time: No The last office visit in the department: 12/18/23 Does the patient have a future office visit with this provider/department: Yes Requested Prescriptions Pending Prescriptions Disp Refills metFORMIN ER (GLUCOPHAGE XR) 500 mg 24 hr tablet 180 tablet 1 Sig: TAKE 2 TABLETS BY MOUTH ONE TIME DAILY 12 HOURS APART FROM JANUMET Patient Comment: Huy is totally out of Metformin. [facility] say the Dr has not approved a renewal?? Is it safe just to abruptly stop it? Ute Marr MA May 28, 2024 11:03 AM [facility]11-21-2024 NoteHNO ID: [id number] Author: LESA ROMO MA Service: ? Author Type: Cupola Repairer Type: Progress Notes Filed: 04/02/2024 15:26 Note Text: Scan on 04/02/2024 2:05 PM by ProviderCherelle PA-C: Dilated eye eam HM updated.[facility]11-21-2024 History of Present illness Narrative* Lesa Romo MA - 04/02/2024 3:24 PM EST Scan on 04/02/2024 2:05 PM by ProviderCherelle PA-C: Dilated eye eam HM updated. documented in this encounterJoint [facility] District [facility]09-11-2024 Telephone encounter Note * Telephone Encounter - Carlos A Morrison LPN - 01/22/2024 12:09 PM EDT Prescription Refill Information The patient has been identified by name and date of : Yes Caregiver verified no other encounters exist for this prescription request: Yes Caregiver confirmed with patient/requestor that no other refills are due, in the near future, with this provider at this time: Yes The last office visit in the department: 12/18/23 Does the patient have a future office visit with this provider/department: Yes Requested Prescriptions Pending Prescriptions Disp Refills glimepiride (AMARYL) 2 mg tablet 180 tablet 1 Sig: Take 1 tablet by mouth two times a day with meals. Carlos A Morrison LPN January 22, 2024 12:09 PM [facility]09-11-2024 Miscellaneous Notes* Telephone Encounter - Carlos A Morrison LPN - 01/22/2024 12:09 PM EDT Prescription Refill Information The patient has been identified by name and date of : Yes Caregiver verified no other encounters exist for this prescription request: Yes Caregiver confirmed with patient/requestor that no other refills are due, in the near future, with this provider at this time: Yes The last office visit in the department: 12/18/23 Does the patient have a future office visit with this provider/department: Yes Requested Prescriptions Pending Prescriptions Disp Refills glimepiride (AMARYL) 2 mg tablet 180 tablet 1 Sig: Take 1 tablet by mouth two times a day with meals. Carlos A Morrison LPN January 22, 2024 12:09 PM documented in this encounterJoint [facility]09-11-2024 Telephone encounter Note * Telephone Encounter - Kristal Ramirez LPN - 01/22/2024 11:59 AM EDT Prescription Refill Information The patient has been identified by name and date of : Yes Caregiver verified no other encounters exist for this prescription request: Yes Caregiver confirmed with patient/requestor that no other refills are due, in the near future, with this provider at this time: Yes The last office visit in the department: 12/18/23 Does the patient have a future office visit with this provider/department: Yes 06/24/24 Requested Prescriptions Pending Prescriptions Disp Refills SITagliptin-metFORMIN (JANUMET XR) 100-1,000 mg TM24 90 tablet 2 Sig: Take 1 tablet by mouth once daily. Kristal Ramirez LPN January 22, 2024 12:00 PM [facility]09-11-2024 Miscellaneous Notes* Telephone Encounter - Kristal Ramirez LPN - 01/22/2024 11:59 AM EDT Prescription Refill Information The patient has been identified by name and date of : Yes Caregiver verified no other encounters exist for this prescription request: Yes Caregiver confirmed with patient/requestor that no other refills are due, in the near future, with this provider at this time: Yes The last office visit in the department: 12/18/23 Does the patient have a future office visit with this provider/department: Yes 06/24/24 Requested Prescriptions Pending Prescriptions Disp Refills SITagliptin-metFORMIN (JANUMET XR) 100-1,000 mg TM24 90 tablet 2 Sig: Take 1 tablet by mouth once daily. Kristal Ramirez LPN January 22, 2024 12:00 PM documented in this encounter[facility] Telephone encounter Note * Telephone Encounter - Kristal Ramirez LPN - 01/03/2024 12:59 PM EDT [facility]-12/18/23 Labs-12/18/23Mar-06/24/23 Kristal Ramirez LPN [facility]08-23-2024 Miscellaneous Notes* Telephone Encounter - Kristal Ramirez LPN - 01/03/2024 12:59 PM EDT WAN-12/18/23 Labs-12/18/23Mar-06/24/23 Kristal Ramirez LPN documented in this encounterJoint [facility]08-[facility]24 Telephone encounter Note * Telephone Encounter - Clarisa Cottrell RN - 12/19/2023 11:50 AM EDT Patient calls and notified of results and providers instructions. Patient verbalizes understanding with no further questions. Clarisa Cottrell RN [facility]08-08-2024 Miscellaneous Notes* Telephone Encounter - Clarisa Cottrell RN - 12/19/2023 11:50 AM EDT Patient calls and notified of results and providers instructions. Patient verbalizes understanding with no further questions. Clarisa Cottrell RN * Telephone Encounter - Marci Everett LPN - 12/19/2023 9:45 AM EDT Left message to call office. 12/19/2023 9:45 AM. Marci Everett LPN * Telephone Encounter - Zahra Arias PA-C - 12/19/2023 9:26 AM EDT Let patient know that overall labs are stable. A1c is 6.7% which is up compared to last check but still at goal. Thyroid levels are normal. Cholesterol is good. Thanks. Zahra Arias PA-C documented in this encounterJoint [facility]08-08-2024 Telephone encounter Note * Telephone Encounter - Marci Everett LPN - 12/19/2023 9:45 AM EDT Left message to call office. 12/19/2023 9:45 AM. Marci Everett LPN [facility]08-08-2024 Telephone encounter Note* Telephone Encounter - Zahra Arias PA-C - 12/19/2023 9:26 AM EDT Let patient know that overall labs are stable. A1c is 6.7% which is up compared to last check but still at goal. Thyroid levels are normal. Cholesterol is good. Thanks. Zahra Arias PA-C [facility]08-07-[facility] History of Present illness Narrative* Zahra Arias PA-C - 12/18/2023 12:47 PM EDT Chief Complaint Patient presents with: 6 Month Exam HPI Santos Morel is a 83 year old male who presents here today for Chronic Medical Conditions.. Patient with hx of DM2, HTN, hyperlipidemia, low magnesium, GERD, BPH, and those as below. No concerns today Past medical history, appointments, medications, allergies reviewed. Previous Medical History PAST MEDICAL HISTORY 07/07/2018: Abnormal CT of liver Comment: 2017: suspected cirrhosis. Saw Dr. Rocha [facility] who felt this was not cirrhosis. 03/06/2007: Actinic keratosis 03/16/2015: Benign non-nodular prostatic hyperplasia with lower urinary tract symptoms Comment: History of BPH. takes flomax at home. Voiding without difficulty Plan; - resume flomax 09/29/2013 - voiding 02/11/2007: Calculus of kidney 02/11/2007: Contact dermatitis and other eczema, due to unspecified cause Comment: Bilateral metacarpals, elbow - mild 03/05/2015: Controlled type 2 diabetes mellitus without complication, without long-term current use of insulin (HCC) 06/15/2009: Deviated nasal septum 08/27/2014: Diabetic eye exam ([facility]) Comment: Last done: 02/13/18 No Retinopathy 02/11/2007: Diverticulosis of large intestine Comment: Finding on Colonoscopy 2001 08/27/2007: Elevated C-reactive protein (CRP) 03/16/2015: Elevated prostate specific antigen (PSA) 03/05/2015: Essential hypertension 02/11/2007: Family history of ischemic heart disease Comment: Father age 54 [place] 03/05/2015: Gastroesophageal reflux disease without esophagitis 05/19/2014: History of kidney stones 01/20/2021: History of lung cancer Comment: 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 Released (01/07/2019) 06/30/2019: Hypomagnesemia No date: Internal hemorrhoids without mention of complication 08/02/2021: Living will in place Comment: DPA: (Lisa) No date: Lung cancer, upper lobe (HCC) Comment: 08/21/13: Right. NSCLC. Neg EBUS staging of mediastinum. 03/16/2015: Malignant neoplasm of upper lobe of right lung (HCC) Comment: Sees Dr. Maria: Adenocarcinoma Stage IB, Refused chemo. 03/16/2015: Malignant neoplasm of upper lobe of right lung (HCC) Comment: 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 Maria: Adenocarcinoma Stage IB, Refused chemo. Released (01/07/2019) 03/05/2015: Mixed hyperlipidemia 03/06/2007: OVERWEIGHT 07/10/2013: Palpitations 01/20/2021: Post-surgical hypothyroidism 10/09/2013: Primary thyroid papillary carcinoma (HCC) Comment: Goal to keep TSH between 0.1-0.5 and thyroglobulin less than 5 02/11/2007: Unspecified hearing loss Comment: Dr. Carrion, [facility], Stapedectomy 03/16/2015: Upper back pain on left side 09/29/2013: VTE Prophylaxis Comment: The pt was on Lovenox 40mg SC daily and SCD for VTE prophylaxis. No signs or symptoms of DVT/PE. The patient is at High risk for VTE. Plan: - KATIE - Encourage continued ambulation . Previous Surgical History PAST SURGICAL HISTORY No date: CAROTID ULTRASOUND BILATERAL 2000: COLONOSCOPY FLX DX W/COLLJ SPEC WHEN PFRMD Comment: Colonoscopy 11/27/07: COLONOSCOPY FLX DX W/COLLJ SPEC WHEN PFRMD 09/28/2013: PAST SURGICAL HISTORY OF Comment: Rt upper lung lobectomy for CA : RPR 1ST FEM HRNA ANY AGE REDUCIBLE : STAPEDECTOMY/STAPEDOTOMY Comment: Left Ear 2004?: STRESS (SPECT) Comment: Treadmill Stress TestJob 07/08/2013: STRESS TEST Comment: NL Family History FAMILY HISTORY Problem Relation Age of Onset Breast Cancer Mother age 51 Heart Father [place] age 54 Diabetes Sister Heart also Breast Cancer Sister Lung Cancer Sister None Sister None Brother Patient Allergies ALLERGIES Allergen Reactions Penicillins Unknown Not sure he has allergy Current Medications Current Outpatient Medications on File Prior to Visit Medication Sig SITagliptin-metFORMIN (JANUMET XR) 100-1,000 mg TM24 Take 1 tablet by mouth once daily. metFORMIN ER (GLUCOPHAGE XR) 500 mg 24 hr tablet TAKE 2 TABLETS BY MOUTH ONE TIME DAILY 12 HOURS APART FROM JANUMET glimepiride (AMARYL) 2 mg tablet Take 1 tablet by mouth two times a day with meals. diphenoxylate-atropine (LOMOTIL) 2.5-0.025 mg per tablet Take 1 tablet by mouth two times a day as needed for diarrhea for up to 180 days. omeprazole (PRILOSEC) 20 mg capsule TAKE 1 CAPSULE DAILY tamsulosin (FLOMAX) 0.4 mg Take 1 capsule by mouth twice daily. DUPIXENT PEN 300 mg/2 mL pen Inject 300 mg subcutaneously every [address] Evans Sommer Cholecalciferol, Vitamin D3, 50 mcg (2,000 unit) cap Take by mouth once daily. ASPIRIN 81 MG TAB Take one(1) tablet daily. Benzonatate 200 mg capsule Take 1 capsule by mouth three times a day as needed. (Patient not taking: Reported on 12/18/2023) No current facility-administered medications on file prior to visit. Social History Social History Tobacco Use Smoking status: Never Smokeless tobacco: Never Tobacco comments: Parents and spouse non smokers. Vaping Use Vaping Use: Never used Substance Use Topics Alcohol use: No Drug use: No Review of Symptoms REVIEW OF SYSTEMS GENERAL: No weight loss, malaise or fevers NECK: Negative for lumps, goiter, pain and significant neck swelling RESPIRATORY: Negative for cough, hemoptysis, wheezing, COPD, dyspnea or shortness of breath CARDIOVASCULAR: Negative for chest pain, leg swelling, hypertension, CHF or palpitations NEURO: No history of headaches, syncope, paralysis, seizures or tremors EXAM: BP 132/72 (BP Site: Left Arm, BP Position: Sitting, BP Cuff Size: Regular Adult) Pulse 87 Temp 37.1 C (98.7 F) Resp 16 Wt 89.2 kg (196 lb 10.4 oz) SpO2 94% BMI 28.22 kg/m General Appearance: Well appearing, alert, in no acute distress, well-hydrated, well nourished.. Neck: Supple, no adenopathy; thyroid symmetric, normal size, no bruits. Lungs: Lungs clear to auscultation. No wheezing, rhonchi, rales.. Heart: RRR without murmur, gallop, or rubs. No ectopy. Extremities: No deformities, edema, skin discoloration, clubbing or cyanosis. Good capillary refill. . Peripheral Pulses: Normal. Health Maintenance List Depression Screening Never done Anxiety Screening Never done RSV Vaccine(1 - 1-dose 60+ series) Never done Covid-19 Vaccine(4 - 2022-24 season) due on 01/11/2023 Advance Directive Discussion due on 05/13/2023 Urine Albumin:Creatinine Ratio due on 08/17/2023 HbA1C due on 08/23/2023 Diabetic Foot Exam due on 08/24/2023 Influenza Vaccine(1) due on 01/12/2024 LDL Cholesterol due on 02/22/2024 Dilated Retinal Exam due on 03/26/2024 DTaP,Tdap,Td Vaccine(4 - Td or Tdap) due on 01/11/2028 Pneumococcal Vaccine: 65+ Completed HPV Vaccine Aged Out Colorectal Cancer Screening Discontinued Shingrix Vaccine Discontinued Data reviewed N/a ASSESSMENT/PLAN: 1. Essential hypertension - ICD9: 401.9, ICD10: I10 (primary diagnosis) - Controlled - Continue current medications - Recommend home blood pressure monitoring, to bring results to next visit - Encouraged sodium restriction, DASH or Mediterranean diet - Recommend regular aerobic exercise - URINALYSIS, WITH MICROSCOPIC - COMPLETE BLOOD COUNT AND DIFFERENTIAL 2. Primary thyroid papillary carcinoma (HCC) - ICD9: 193, ICD10: C73 - LEVOTHYROXINE 175 MCG TABLET - THYROGLOBULIN ANTIBODY 3. Mixed hyperlipidemia - ICD9: 272.2, ICD10: E78.2 - Control undetermined, due for labs - Continue current medications - Counseled on healthy diet and regular exercise - LIPID PANEL, NONFASTING 4. Benign non-nodular prostatic hyperplasia with lower urinary tract symptoms - ICD9: 600.91, ICD10: N40.1 stable 5. Controlled type 2 diabetes mellitus without complication, without long-term current use of insulin (HCC) - ICD9: 250.00, ICD10: E11.9 - Control undetermined, due for labs - Continue current medications - Statin prescribed - pravastatin - HEMOGLOBIN A1C - URINALYSIS, WITH MICROSCOPIC - ALBUMIN/CREATININE RATIO, URINE - COMPLETE BLOOD COUNT AND DIFFERENTIAL - COMPREHENSIVE METABOLIC PANEL 6. Post-surgical hypothyroidism - ICD9: 244.0, ICD10: E89.0 - Instructed patient on importance of taking on an empty stomach either first thing in the morning or at bedtime. - THYROID STIMULATING HORMONE 7. Hypomagnesemia - ICD9: 275.2, ICD10: E83.42 - MAGNESIUM 8. Medication management - ICD9: V58.69, ICD10: Z79.899 - VITAMIN B12 Zahra Arias PA-C documented in this encounterJoint [facility]07-[facility]-2024 Telephone encounter Note * Telephone Encounter - Kristal Ramirez LPN - 12/05/2023 12:09 PM EDT [facility]- 04/10/23 labs-04/08/23 NOV- My Chart message sent Kristal Ramirez LPN [facility]07-25-2024 Miscellaneous Notes* Telephone Encounter - Kristal Ramirez LPN - 12/05/2023 12:09 PM EDT [facility]- 04/10/23 labs-04/08/23 NOV- My Chart message sent Kristal Ramirez LPN documented in this encounterJoint [facility]07-25-2024 Telephone encounter Note * Telephone Encounter - Kristal Ramirez LPN - 12/05/2023 12:05 PM EDT [facility]-04/10/23 labs-04/08/23 NOV- My chart message sent. Kristal Ramirez LPN [facility]07-25-2024 Miscellaneous Notes* Telephone Encounter - Kristal Ramirez LPN - 12/05/2023 12:05 PM EDT [facility]-04/10/23 labs-04/08/23 NOV- My chart message sent. Kristal Ramirez LPN documented in this encounterJoint [facility]07-08-2024 Telephone encounter Note * Telephone Encounter - Padmini Fernandez OCCA - 11/18/2023 2:48 PM EDT Prescription Refill Information The patient has been identified by name and date of : Yes Caregiver verified no other encounters exist for this prescription request: Yes Caregiver confirmed with patient/requestor that no other refills are due, in the near future, with this provider at this time: Yes The last office visit in the department: 04/10/2023 Does the patient have a future office visit with this provider/department: No Requested Prescriptions Pending Prescriptions Disp Refills metFORMIN ER (GLUCOPHAGE XR) 500 mg 24 hr tablet 180 tablet 1 Sig: TAKE 2 TABLETS BY MOUTH ONE TIME DAILY 12 HOURS APART FROM JANUMET Refused Prescriptions Disp Refills levothyroxine (SYNTHROID) 175 mcg tablet 102 tablet 1 Sig: Take 1 tablet by mouth once daily. Mon-Sat and two on Saturday ZELALEM Becerra November 18, 2023 2:48 PM [facility]07-08-2024 Miscellaneous Notes* Telephone Encounter - Padmini Fernandez OCCA - 11/18/2023 2:48 PM EDT Prescription Refill Information The patient has been identified by name and date of : Yes Caregiver verified no other encounters exist for this prescription request: Yes Caregiver confirmed with patient/requestor that no other refills are due, in the near future, with this provider at this time: Yes The last office visit in the department: 04/10/2023 Does the patient have a future office visit with this provider/department: No Requested Prescriptions Pending Prescriptions Disp Refills metFORMIN ER (GLUCOPHAGE XR) 500 mg 24 hr tablet 180 tablet 1 Sig: TAKE 2 TABLETS BY MOUTH ONE TIME DAILY 12 HOURS APART FROM JANUMET Refused Prescriptions Disp Refills levothyroxine (SYNTHROID) 175 mcg tablet 102 tablet 1 Sig: Take 1 tablet by mouth once daily. Mon-Sat and two on Saturday ZELALEM Becerra November 18, 2023 2:48 PM documented in this [facility]04-16-2024 Miscellaneous Notes* Telephone Encounter - Fletcher Parks MA - 08/27/2023 4:30 PM EDT Patient has been identified by name and date of : Yes, Provider Dr Rahman Date 08/27/2023 Time4:31 pm Requested Prescriptions Pending Prescriptions Disp Refills glimepiride (AMARYL) 2 mg tablet 180 tablet 1 Sig: Take 1 tablet by mouth two times a day with meals. losartan (COZAAR) 100 mg tablet 90 tablet 1 Sig: Take 1 tablet by mouth once daily. RX INSTRUCTIONS: Patient aware RX will be sent to pharmacy. No need to notify patient. GISEL Ac 02/202308/28/2023 Last refill: 04/2023 documented in this [facility]03-04-2024 Miscellaneous Notes* Telephone Encounter - Fletcher Parks MA - 07/15/2023 9:38 AM EST Patient has been identified by name and date of : Yes, Provider Dr Rahman Date 07/15/2023 Time9:38 am Requested Prescriptions Pending Prescriptions Disp Refills levothyroxine (SYNTHROID) 175 mcg tablet 102 tablet 1 Sig: Take 1 tablet by mouth once daily. Mon-Sat and two on Saturday RX INSTRUCTIONS: Patient aware RX will be sent to pharmacy. No need to notify patient. Fletcher Parks MA [facility] 02/2023Mar 1608/2023 Last refill: 02/2023 documented in this [facility]03-04-2024 Miscellaneous Notes* Telephone Encounter - Fletcher Parks MA - 07/15/2023 9:35 AM EST Patient has been identified by name and date of : Yes, Provider Dr Rahman Date 07/15/2023 Time9:35 am Requested Prescriptions Pending Prescriptions Disp Refills diphenoxylate-atropine (LOMOTIL) 2.5-0.025 mg per tablet 180 tablet 1 Sig: Take 1 tablet by mouth two times a day as needed for diarrhea for up to 180 days. RX INSTRUCTIONS: Patient aware RX will be sent to pharmacy. No need to notify patient. Fletcher Parks MA Wan 02/2023 Nov 08/2023 Last refill: 09/2022 documented in this encounterJoint [facility]11-30-2023 Miscellaneous Notes* Telephone Encounter - Adan Montiel APRN.CNP - 04/11/2023 2:20 PM EST Notified of results, desires treatment, will send azithromycin to pharmacy. * Telephone Encounter - Adan Montiel APRN.CNP - 04/11/2023 1:59 PM EST I called to go over results. Noone picked up. Message left to call back. documented in this encounterJoint [facility]11-29-2023 Instructions* Patient Instructions* Yvan Rahman MD - 04/10/2023 6:40 PM EST Please get him on Imodium at 2 pills to start the day and then do one with each loose stool (m,ax of 8 pills in 24 hrs). Also start a pro-biotic at least 5 billion units per capsule a day. Use body armor no sugar for electrolyte replacement. Get him some regina bars for protein documented in this encounterJoint [facility]11-29-2023 History of Present illness Narrative* Yvan Rahman MD - 04/10/2023 6:16 PM EST Chief Complaint Patient presents with: Follow Up HPI Santos Morel is a 82 year old male who presents here today for ongoing Diarrhea. Patient was seen in on Saturday for vomiting; diarrhea. No vomiting since Saturday. Patient is also having lower abdomen pain. did start patient yesterday on Imodium AD this is not helping. Patient has been having some dizziness. Patient indicated that he is eating 2 meals a day. indicated that he is not eating and drinking much. Woke up the day after thanksgiving not feeling well. Had a slight fever on Saturday. No blood in the diarrhea or melena. Past medical history, appointments, medications, allergies reviewed. Previous Medical History PAST MEDICAL HISTORY Diagnosis Date Abnormal CT of liver 07/07/2018 2017: suspected cirrhosis. Saw Dr. Rocha [facility] who felt this was not cirrhosis. Actinic keratosis 03/06/2007 Benign non-nodular prostatic hyperplasia with lower urinary tract symptoms 03/16/2015 History of BPH. takes flomax at home. Voiding without difficulty Plan; - resume flomax 09/29/2013 - voiding Calculus of kidney 02/11/2007 Contact dermatitis and other eczema, due to unspecified cause 02/11/2007 Bilateral metacarpals, elbow - mild Controlled type 2 diabetes mellitus without complication, without long-term current use of insulin (HCC) 03/05/2015 Deviated nasal septum 06/15/2009 Diabetic eye exam (HCC) 08/27/2014 Last done: 02/13/18 No Retinopathy Diverticulosis of large intestine 02/11/2007 Finding on Colonoscopy 2000 Elevated C-reactive protein (CRP) 08/27/2007 Elevated prostate specific antigen (PSA) 03/16/2015 Essential hypertension 03/05/2015 Family history of ischemic heart disease 02/11/2007 Father age 54 [place] Gastroesophageal reflux disease without esophagitis 03/05/2015 History of kidney stones 05/19/2014 History of lung cancer 01/20/2021 Right upper lobe: Dx 2014: Was Seeing Dr. Maria: Adenocarcinoma Stage IB, Refused chemo. Released(01/07/2019) Hypomagnesemia 06/30/2019 Internal hemorrhoids without mention of complication Living will in place 08/02/2021 DPA: (Lisa) Lung cancer, upper lobe (HCC) 08/21/13: Right. NSCLC. Neg EBUS staging of mediastinum. Malignant neoplasm of upper lobe of right lung (HCC) 03/16/[address] Maria: Adenocarcinoma Stage IB, Refused chemo. Malignant neoplasm of upper lobe of right lung (HCC) 03/16/2015 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 Maria: Adenocarcinoma Stage IB, Refused chemo. 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 Carrion, [facility], Stapedectomy Upper back pain on left side 03/16/2015 VTE Prophylaxis 09/29/2013 The pt was on Lovenox 40mg SC daily and SCD for VTE prophylaxis. No signs or symptoms of DVT/PE. The patient is at High risk for VTE. Plan: - KATIE - Encourage continued ambulation . Previous Surgical History PAST SURGICAL HISTORY Procedure Laterality Date CAROTID ULTRASOUND BILATERAL COLONOSCOPY FLX DX W/COLLJ SPEC WHEN PFRMD 2000 Colonoscopy COLONOSCOPY FLX DX W/COLLJ SPEC WHEN PFRMD 11/27/07 PAST SURGICAL HISTORY OF 09/28/2013 Rt upper lung lobectomy for CA RPR 1ST FEM HRNA ANY AGE REDUCIBLE STAPEDECTOMY/STAPEDOTOMY Left Ear STRESS (SPECT) 2004? Treadmill Stress Test, [place] STRESS TEST 07/08/2013 Family History FAMILY HISTORY Problem Relation Age of Onset Breast Cancer Mother age 51 Heart Father [place] age 54 Diabetes Sister Heart also Breast Cancer Sister Lung Cancer Sister None Sister None Brother Patient Allergies ALLERGIES Allergen Reactions Penicillins Unknown Not sure he has allergy Current Medications Current Outpatient Medications on File Prior to Visit Medication Sig SITagliptin-metFORMIN (JANUMET XR) 100-1,000 mg TM24 Take 1 tablet by mouth once daily. metFORMIN ER (GLUCOPHAGE XR) 500 mg 24 hr tablet TAKE 2 TABLETS BY MOUTH ONE TIME DAILY 12 HOURS APART FROM JANUMET levothyroxine (SYNTHROID) 175 mcg tablet Take 1 tablet by mouth once daily. Sat- Sat and two on Saturday glimepiride (AMARYL) 2 mg tablet Take 1 tablet by mouth twice daily with meals. omeprazole (PRILOSEC) 20 mg capsule TAKE 1 CAPSULE DAILY tamsulosin (FLOMAX) 0.4 mg Take 1 capsule by mouth twice daily. pravastatin (PRAVACHOL) 40 mg tablet Take 1 tablet by mouth daily at bedtime. losartan (COZAAR) 100 mg tablet Take 1 tablet by mouth once daily. DUPIXENT PEN 300 mg/2 mL pen Inject 300 mg subcutaneously every [address] Evans Sommer Cholecalciferol, Vitamin D3, 50 mcg (2,000 unit) cap Take by mouth once daily. ASPIRIN 81 MG TAB Take one(1) tablet daily. diphenoxylate-atropine (LOMOTIL) 2.5-0.025 mg per tablet Take 1 tablet by mouth twice daily as needed for diarrhea for up to 180 days. No current facility-administered medications on file prior to visit. Social History Social History Tobacco Use Smoking status: Never Smokeless tobacco: Never Tobacco comments: Parents and spouse non smokers. Substance Use Topics Alcohol use: No Drug use: No Review of Symptoms REVIEW OF SYSTEMS See HPI EXAM: BP 122/64 (BP Site: Right Arm, BP Position: Sitting, BP Cuff Size: Regular Adult) Pulse 80 Temp37.2 C (98.9 F) Resp 22 Wt 85.7 kg (189 lb) SpO2 95% BMI 27.12 kg/m Last 5 Encounter Wt Readings: Date: Wt: 04/10/2023 85.7 kg (189 lb) 04/08/2023 86.6 kg (191 lb) 02/25/2023 89.4 kg (197 lb) 08/23/2022 87.1 kg (192 lb) 02/08/2022 87.5 kg (193 lb) General Appearance: Well appearing, alert, in no acute distress, well-hydrated, well nourished.. Back:no flank pain. Lungs: Lungs clear to auscultation. No wheezing, rhonchi, rales.. Heart: RRR without murmur, gallop, or rubs. No ectopy. Abdomen: Abdomen soft, non-distended. Mild generalized tenderness without guarding or rebound pain.. Bowel sounds normal. No masses, organomegaly. Health Maintenance List RSV Vaccine(1 - 1-dose 60+ series) Never done Covid-19 Vaccine( season) due on 01/11/2023 Urine Albumin:Creatinine Ratio due on 08/17/2023 HbA1C due on 08/23/2023 Diabetic Foot Exam due on 08/24/2023 LDL Cholesterol due on 02/22/2024 Annual PCP Team Chronic Disease Visit due on 02/26/2024 Dilated Retinal Exam due on 03/26/2024 BP Controlled (<130/80) due on 04/08/2024 DTaP,Tdap,Td Vaccine(3 - Td or Tdap) due on 01/11/2028 Influenza Vaccine Completed Advance Directive Discussion Completed Depression Assessment Completed Pneumococcal Vaccine: 65+ Completed HPV Vaccine Aged Out Hepatitis B Vaccine Discontinued Colorectal Cancer Screening Discontinued Shingrix Vaccine Discontinued Data reviewed A/P ASSESSMENT/PLAN: 1. Viral enteritis - ICD9: 008.8, ICD10: A08.4 Advised: Imodium at 2 pills to start the day and then do one with each loose stool (m,ax of 8 pills in 24 hrs). Also start a pro-biotic at least 5 billion units per capsule a day. Use body armor no sugar for electrolyte replacement. Get him some regina bars for protein Await stool studies. F/u if not getting better. Yvan Rahman MD documented in this encounterJoint [facility]11-29-2023 Miscellaneous Notes* Telephone Encounter - Iona Guadalupe APRN.CNP - 04/10/2023 9:34 AM EST I spoke with Huy's Lisa. He is feeling slightly better but still has diarrhea. Stool studies ordered. Advised to make an appointment with PCP to follow up on continuing symptoms and lab abnormal values. Iona Guadalupe APRN.CNP * Telephone Encounter - Iona Guadalupe APRN.CNP - 04/10/2023 9:22 AM EST I attempted to reach patient to advise of negative urine culture results. I would like to speak to him or his if they return call. Extension [phone]. Iona Guadalupe APRN.CNP documented in this encounterJoint [facility]11-29-[facility]23 Instructions* Patient Instructions* Iona Guadalupe APRN.CNP - 04/10/2023 9:33 AM EST ASSESSMENT/PLAN: 1. Flu-like symptoms - ICD9: 780.99, ICD10: R68.89 (primary diagnosis) - INFLUENZA A&B MOLECULAR (POC) - URINE CULTURE - CBC + DIFF - COMP METABOLIC PANEL 2. Tachycardia - ICD9: 785.0, ICD10: R00.0 - UA DIP, URINE (POC) 3. Suspected COVID-19 virus infection - ICD9: V01.79, ICD10: Z20.822 - COVID & INFLUENZA A/B & RSV NAAT, ROUTINE 4. Proteinuria, unspecified type - ICD9: 791.0, ICD10: R80.9 - CBC + DIFF 5. Fever, unspecified fever cause - ICD9: 780.60, ICD10: R50.9 - XR CHEST 2V FRONTAL/LAT 6. Diarrhea, unspecified type - ICD9: 787.91, ICD10: R19.7 - ENTERIC BACTERIAL PANEL BY PCR - C. DIFFICILE PCR - OVA + PARA MICROSCOPIC - Follow-up with your PCP in 3-5 days if symptoms have not improved or sooner if symptoms worsen - Discussed red flags and need for immediate medical evaluation if any occur. - Discussed supportive care treatment with fluids, rest and analgesia. - Discussed expected course of illness Iona Guadalupe APRN.CNP documented in this encounterJoint [facility] District [facility]11-27-2023 History of Present illness Narrative* Nery Lorenzo RT(R) - 04/08/2023 10:50 AM EST Radiology Service Progress Note PATIENT NAME: Santos Morel DATE OF SERVICE: April 08, 2023 TIME: 10:56 AM PATIENT IDENTITY VERIFICATION COMPLETED USING TWO (2) IDENTIFIERS: Name and Date of confirmedby patient verbally. FALL SCREENING: Has the patient had 2 falls in the last year or 1 fall with injury or currently using an Ambulatory Assistive Device (Walker, Cane, Wheelchair, Crutches, etc.)? No PATIENT GENDER DATA: Male PATIENT RELEVANT IMPLANT DATA REVIEWED: Yes RADIOLOGY DEPARTMENT: General X-ray: Exam(s) Completed: Chest X-Ray PERIPHERAL IV DATA: Not applicable SIGNED BY: RT Clem(R) April 08, 2023 10:56 AM documented in this encounterJoint Township District [facility] Hospital11-27-2023 History of Present illness Narrative* Iona Guadalupe APRN.GRAVITY PROSPECTING OPERATOR HELPER - 04/08/2023 10:00 AM EST Subjective HPI Santos Morel is a 82 year old male who presents with 4 days of illness. Symptoms include fever, vomiting, diarrhea, and fatigue. The vomiting has improved but he is still having loose stool. He is also having nasal congestion and drainage. He denies any known sick contacts. He has been taking tylenol for fever. He has a history of lung cancer. Review of Systems Constitutional: Positive for fever and malaise/fatigue. Negative for chills. HENT: Positive for congestion. Negative for ear pain and sore throat. Respiratory: Negative for cough and shortness of breath. Cardiovascular: Negative for chest pain. Gastrointestinal: Positive for diarrhea, nausea and vomiting. Negative for abdominal pain and bloodin stool. Musculoskeletal: Negative for myalgias. Skin: Negative. Neurological: Negative for headaches. BP 117/72 Pulse (!) 123 Temp 37.4 C (99.3 F) Resp 24 Wt 86.6 kg (191 lb) SpO2 96% BMI 27.41 kg/m PAST MEDICAL HISTORY Diagnosis Date Abnormal CT of liver 07/07/2018 2017: suspected cirrhosis. Saw Dr. Rocha [facility] who felt this was not cirrhosis. Actinic keratosis 03/06/2007 Benign non-nodular prostatic hyperplasia with lower urinary tract symptoms 03/16/2015 History of BPH. takes flomax at home. Voiding without difficulty Plan; - resume flomax 09/29/2013 - voiding Calculus of kidney 02/11/2007 Contact dermatitis and other eczema, due to unspecified cause 02/11/2007 Bilateral metacarpals, elbow - mild Controlled type 2 diabetes mellitus without complication, without long-term current use of insulin ([facility]) 03/05/2015 Deviated nasal septum 06/15/2009 Diabetic eye exam ([facility]) 08/27/2014 Last done: 02/13/18 No Retinopathy Diverticulosis of large intestine 02/11/2007 Finding on Colonoscopy 2000 Elevated C-reactive protein (CRP) 08/27/2007 Elevated prostate specific antigen (PSA) 03/16/2015 Essential hypertension 03/05/2015 Family history of ischemic heart disease 02/11/2007 Father age 54 [place] Gastroesophageal reflux disease without esophagitis 03/05/2015 History of kidney stones 05/19/2014 History of lung cancer 01/20/2021 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 Released(01/07/2019) Hypomagnesemia 06/30/2019 Internal hemorrhoids without mention of complication Living will in place 08/02/2021 DPA: (Lisa) Lung cancer, upper lobe (HCC) 08/21/13: Right. NSCLC. Neg EBUS staging of mediastinum. Malignant neoplasm of upper lobe of right lung (HCC) 03/16/[address] Maria: Adenocarcinoma Stage IB, Refused chemo. Malignant neoplasm of upper lobe of right lung (HCC) 03/16/2015 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 Maria: Adenocarcinoma Stage IB, Refused chemo. 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 Upper back pain on left side 03/16/2015 VTE Prophylaxis 09/29/2013 The pt was on Lovenox 40mg SC daily and SCD for VTE prophylaxis. No signs or symptoms of DVT/PE. The patient is at High risk for VTE. Plan: - KATIE - Encourage continued ambulation . PAST SURGICAL HISTORY Procedure Laterality Date CAROTID ULTRASOUND BILATERAL COLONOSCOPY FLX DX W/COLLJ SPEC WHEN PFRMD 2000 Colonoscopy COLONOSCOPY FLX DX W/COLLJ SPEC WHEN PFRMD 11/27/07 PAST SURGICAL HISTORY OF 09/28/2013 Rt upper lung lobectomy for CA RPR 1ST FEM HRNA ANY AGE REDUCIBLE STAPEDECTOMY/STAPEDOTOMY Left Ear STRESS (SPECT) 2004? Treadmill Stress Test, [place] STRESS TEST 07/08/2013 NL ALLERGIES Penicillins MEDICATIONS metFORMIN ER (GLUCOPHAGE XR) 500 mg 24 hr tablet TAKE 2 TABLETS BY MOUTH ONE TIME DAILY 12 HOURS APART FROM JANUMET levothyroxine (SYNTHROID) 175 mcg tablet Take 1 tablet by mouth once daily. Sat- Sat and two on Saturday glimepiride (AMARYL) 2 mg tablet Take 1 tablet by mouth twice daily with meals. omeprazole (PRILOSEC) 20 mg capsule TAKE 1 CAPSULE DAILY tamsulosin (FLOMAX) 0.4 mg Take 1 capsule by mouth twice daily. pravastatin (PRAVACHOL) 40 mg tablet Take 1 tablet by mouth daily at bedtime. SITagliptin-metFORMIN (JANUMET XR) 100-1,000 mg TM24 Take 1 tablet by mouth once daily. losartan (COZAAR) 100 mg tablet Take 1 tablet by mouth once daily. diphenoxylate-atropine (LOMOTIL) 2.5-0.025 mg per tablet Take 1 tablet by mouth twice daily as needed for diarrhea for up to 180 days. DUPIXENT PEN 300 mg/2 mL pen Inject 300 mg subcutaneously every [address] Evans Sommer Cholecalciferol, Vitamin D3, 50 mcg (2,000 unit) cap Take by mouth once daily. ASPIRIN 81 MG TAB Take one(1) tablet daily. FAMILY HISTORY Problem Relation Age of Onset Breast Cancer Mother age 51 Heart Father [place] age 54 Diabetes Sister Heart also Breast Cancer Sister Lung Cancer Sister None Sister None Brother Social History Tobacco Use Smoking status: Never Smokeless tobacco: Never Tobacco comments: Parents and spouse non smokers. Substance Use Topics Alcohol use: No Drug use: No Objective Physical Exam Vitals and nursing note reviewed. HENT: Right Ear: Tympanic membrane, ear canal and external ear normal. Left Ear: Tympanic membrane, ear canal and external ear normal. Nose: Nose normal. Mouth/Throat: Pharynx: Uvula midline. No oropharyngeal exudate or posterior oropharyngeal erythema. Cardiovascular: Rate and Rhythm: Normal rate and regular rhythm. Heart sounds: Normal heart sounds. Pulmonary: Effort: Pulmonary effort is normal. No respiratory distress. Breath sounds: Normal breath sounds. No wheezing or rales. Abdominal: General: Bowel sounds are normal. There is no distension. Tenderness: There is no abdominal tenderness. There is no right CVA tenderness or guarding. Musculoskeletal: Cervical back: Neck supple. Lymphadenopathy: Cervical: No cervical adenopathy. Skin: General: Skin is warm and dry. Findings: No erythema or rash. Neurological: Mental Status: He is alert. ASSESSMENT/PLAN: 1. Flu-like symptoms - ICD9: 780.99, ICD10: R68.89 (primary diagnosis) - INFLUENZA A&B MOLECULAR (POC) - URINE CULTURE - CBC + DIFF - COMP METABOLIC PANEL 2. Tachycardia - ICD9: 785.0, ICD10: R00.0 - UA DIP, URINE (POC) 3. Suspected COVID-19 virus infection - ICD9: V01.79, ICD10: Z20.822 - COVID & INFLUENZA A/B & RSV NAAT, ROUTINE 4. Proteinuria, unspecified type - ICD9: 791.0, ICD10: R80.9 - CBC + DIFF 5. Fever, unspecified fever cause - ICD9: 780.60, ICD10: R50.9 - XR CHEST 2V FRONTAL/LAT 6. Diarrhea, unspecified type - ICD9: 787.91, ICD10: R19.7 - ENTERIC BACTERIAL PANEL BY PCR - C. DIFFICILE PCR - OVA + PARA MICROSCOPIC - Follow-up with your PCP in 3-5 days if symptoms have not improved or sooner if symptoms worsen - Discussed red flags and need for immediate medical evaluation if any occur. - Discussed supportive care treatment with fluids, rest and analgesia. - Discussed expected course of illness Iona Guadalupe APRN.GRAVITY PROSPECTING OPERATOR HELPER documented in this encounterJoint [facility]10-19-2023 Miscellaneous Notes* Telephone Encounter - Fletcher Parks MA - 02/28/2023 10:35 AM EDT Patient notified and voiced understanding. Fletcher Parks MA * Telephone Encounter - Yvan Rahman MD - 02/28/2023 9:54 AM EDT Let patient know the x-fay of his left shoulder shows mild arthritis and no acute bone abnormalities. documented in this encounterJoint [facility]10-16-2023 History of Present illness Narrative* Nery Lorenzo RT(Kadie) - 02/25/2023 2:10 PM EDT Radiology Service Progress Note PATIENT NAME: Santos Morel DATE OF SERVICE: February 25, 2023 TIME: 2:11 PM PATIENT IDENTITY VERIFICATION COMPLETED USING TWO (2) IDENTIFIERS: Name and Date of confirmedby patient verbally. FALL SCREENING: Has the patient had 2 falls in the last year or 1 fall with injury or currently using an Ambulatory Assistive Device (Walker, Cane, Wheelchair, Crutches, etc.)? No PATIENT GENDER DATA: Male PATIENT RELEVANT IMPLANT DATA REVIEWED: Yes RADIOLOGY DEPARTMENT: General X-ray: Exam(s) Completed: Upper Extremity X- Ray(s): Shoulder, AP / TRUE AP / AXILLARY left PERIPHERAL IV DATA: Not applicable SIGNED BY: RT Clem(Kadie) February 25, 2023 2:11 PM documented in this encounterJoint Township District [facility]10-16-2023 Instructions* Patient Instructions* Yvan Rahman MD - 02/25/2023 1:52 PM EDT I changed the levothyroxine 175 mcg Sat through Sat and two on Sundays. I placed an order to get the thyroid level rechecked on or after 04/26/2023. Please get labs and urine test done on or after 08/16/2023 prior to your next visit. documented in this encounterJoint Township District [facility]10-16-2023 History of Present illness Narrative* Yvan Rahman MD - 02/25/2023 1:20 PM EDT Chief Complaint Patient presents with: F/U 6 months HPI Santos Morel is a 82 year old male who presents here today for 6 month follow up. Patient is here for his 6 month follow up. Patient with Hx of DM 2, HTN, GERD, Hyperlipidemia, lung cancer s/p resection, papillary thyroid cancer s/p removal as well as those reviewed and addressed below and in ROS Any concerns today? blisters every few week on his chest. Not painful or itching. Eye exam: See Dr. Poe. Last visit date? Appointment is scheduled. Patient has Carotid US completed back in 07/2022 Shoulder improved from last visit? Patient is still having issues with left shoulder. Has been going on for 6-12 months ago. Has discomfort with reaching behind him or raising his arm up. FBS? Does not check sugars at home. A1C 6.3 02/21/2023 6.5 08/16/2022 Blood pressures? None. Patient does see Dr. Krueger and is currently taking dupixent every 3 weeks. Past medical history, appointments, medications, allergies reviewed. Previous Medical History PAST MEDICAL HISTORY Diagnosis Date Abnormal CT of liver 07/07/2018 2017[facility]. Actinic keratosis 03/06/2007 Benign non-nodular prostatic hyperplasia with lower urinary tract symptoms 03/16/2015 History of BPH. takes flomax at home. Voiding without difficulty Plan; - resume flomax 09/29/2013 - voiding Calculus of kidney 02/11/2007 Contact dermatitis and other eczema, due to unspecified cause 02/11/2007 Bilateral metacarpals, elbow - mild Controlled type 2 diabetes mellitus without complication, without long-term current use of insulin (HCC) 03/05/2015 Current use of proton pump inhibitor 12/12/2016 Mg checked 11/2017 Deviated nasal septum 06/15/2009 Diabetic eye exam (HCC) 08/27/2014 Last done: 02/13/18 No Retinopathy Diverticulosis of large intestine 02/11/2007 Finding on Colonoscopy 2000 Elevated C-reactive protein (CRP) 08/27/2007 Elevated prostate specific antigen (PSA) 03/16/2015 Essential hypertension 03/05/2015 Family history of ischemic heart disease 02/11/2007 Father age 54 [place] Gastroesophageal reflux disease without esophagitis 03/05/2015 History of kidney stones 05/19/2014 History of lung cancer 01/20/2021 Right upper lobe: Dx 2014: Was Seeing Dr. Maria: Adenocarcinoma Stage IB, Refused chemo. Released(01/07/2019) Hypomagnesemia 06/30/2019 Internal hemorrhoids without mention of complication Living will in place 08/02/2021 DPA: (Lisa) Lung cancer, upper lobe (HCC) 08/21/13: Right. NSCLC. Neg EBUS staging of mediastinum. Malignant neoplasm of upper lobe of right lung (HCC) 03/16/[address] Maria: Adenocarcinoma Stage IB, Refused chemo. Malignant neoplasm of upper lobe of right lung (HCC) 03/16/2015 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 Maria: Adenocarcinoma Stage IB, Refused chemo. 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 Carrion[facility], St[facility]ectomy Upper back pain on left side 03/16/2015 VTE Prophylaxis 09/29/2013 The pt was on Lovenox 40mg SC daily and SCD for VTE prophylaxis. No signs or symptoms of DVT/PE. The patient is at High risk for VTE. Plan: - KATIE - Encourage continued ambulation . Previous Surgical History PAST SURGICAL HISTORY Procedure Laterality Date CAROTID ULTRASOUND BILATERAL COLONOSCOPY FLX DX W/COLLJ SPEC WHEN PFRMD 2000 Colonoscopy COLONOSCOPY FLX DX W/COLLJ SPEC WHEN PFRMD 11/27/07 PAST SURGICAL HISTORY OF 09/28/2013 Rt upper lung lobectomy for CA RPR 1ST FEM HRNA ANY AGE REDUCIBLE STAPEDECTOMY/STAPEDOTOMY Left Ear STRESS (SPECT) 2004? Treadmill Stress Test, [place] STRESS TEST 07/08/2013 NL Family History FAMILY HISTORY Problem Relation Age of Onset Breast Cancer Mother age 51 Heart Father [place] age 54 Diabetes Sister Heart also Breast Cancer Sister Lung Cancer Sister None Sister None Brother Patient Allergies ALLERGIES Allergen Reactions Penicillins Unknown Not sure he has allergy Current Medications Current Outpatient Medications on File Prior to Visit Medication Sig ascorbic acid (VITAMIN C ORAL) Take by mouth. (Patient not taking: Reported on 02/08/2022) ASPIRIN 81 MG TAB Take one(1) tablet daily. Cholecalciferol, Vitamin D3, 50 mcg (2,000 unit) cap Take by mouth once daily. diphenoxylate-atropine (LOMOTIL) 2.5-0.025 mg per tablet Take 1 tablet by mouth twice daily as needed for diarrhea for up to 180 days. DUPIXENT PEN 300 mg/2 mL pen Inject 300 mg subcutaneously every [address] Evans Sommer glimepiride (AMARYL) 2 mg tablet Take 1 tablet by mouth twice daily with meals. levothyroxine (SYNTHROID) 175 mcg tablet Take 1 tablet by mouth once daily. losartan (COZAAR) 100 mg tablet Take 1 tablet by mouth once daily. metFORMIN ER (GLUCOPHAGE XR) 500 mg 24 hr tablet TAKE 2 TABLETS BY MOUTH ONE TIME DAILY 12 HOURS APART FROM JANUMET omeprazole (PRILOSEC) 20 mg capsule TAKE 1 CAPSULE DAILY pravastatin (PRAVACHOL) 40 mg tablet Take 1 tablet by mouth daily at bedtime. SITagliptin-metFORMIN (JANUMET XR) 100-1,000 mg TM24 Take 1 tablet by mouth once daily. tamsulosin (FLOMAX) 0.4 mg Take 1 capsule by mouth twice daily. ZINC ORAL Take 50 mg by mouth. (Patient not taking: Reported on 08/23/2022) No current facility-administered medications on file prior to visit. Social History Social History Tobacco Use Smoking status: Never Smokeless tobacco: Never Tobacco comments: Parents and spouse non smokers. Substance Use Topics Alcohol use: No Drug use: No Review of Symptoms REVIEW OF SYSTEMS GENERAL: No weight loss, malaise or fevers NECK: Negative for lumps, goiter, pain and significant neck swelling RESPIRATORY: Negative for cough, hemoptysis, wheezing, COPD, dyspnea or shortness of breath CARDIOVASCULAR: Negative for chest pain, leg swelling, hypertension, CHF or palpitations GI: No nausea, vomiting, or diarrhea and No heartburn or reflux symptoms : No history of dysuria, blood ENDOCRINE: Negative for cold or heat intolerance, polyuria, polydipsia and goiter NEURO: No history of headaches, syncope, paralysis, seizures or tremors EXAM: BP 138/72 (BP Site: Left Arm, BP Position: Sitting, BP Cuff Size: Regular Adult) Pulse 68 Resp 16 Wt 89.4 kg (197 lb) BMI 28.27 kg/m Last 5 Encounter Wt Readings: Date: Wt: 02/25/2023 89.4 kg (197 lb) 08/23/2022 87.1 kg (192 lb) 02/08/2022 87.5 kg (193 lb) 08/02/2021 87.1 kg (192 lb) 01/20/2021 90.3 kg (199 lb) General Appearance: Well appearing, alert, in no acute distress, well-hydrated, well nourished.. Skin has a blister on the right lateral shoulder and a early one on the right anterior shoulder. Has torres from resolved ones on his torso. Eyes: Anicteric sclera. Pupils are equally round and reactive to light. Extraocular movements are intact. . Neck: Supple, no adenopathy; thyroid symmetric, normal size, no bruits. Lungs: Lungs clear to auscultation. No wheezing, rhonchi, rales.. Heart: RRR without murmur, gallop, or rubs. No ectopy. Abdomen: Normal abdominal exam, Abdomen soft, non-tender. Bowel sounds normal. No masses, organomegaly. Extremities: No deformities, edema, skin discoloration, Good capillary refill. . Musculoskeletal: Muscular strength intact, No joint swelling, deformity, or tenderness. Peripheral Pulses: Normal. Neurologic: Gait normal. Reflexes normal and symmetric. Sensation to light touch and crainal nerves2-12 intact.. Musc: left shoulder: slight decreased ROM with abduction and internal rotation. Health Maintenance List Dilated Retinal Exam due on 03/13/2022 Covid-19 Vaccine() due on 01/11/2023 Urine Albumin:Creatinine Ratio due on 08/17/2023 HbA1C due on 08/23/2023 Diabetic Foot Exam due on 08/24/2023 Annual PCP Team Chronic Disease Visit due on 08/24/2023 BP Controlled (<130/80) due on 08/24/2023 LDL Cholesterol due on 02/22/2024 DTaP,Tdap,Td Vaccine(3 - Td or Tdap) due on 01/11/2028 Influenza Vaccine Completed Advance Directive Discussion Completed Depression Assessment Completed Pneumococcal Vaccine: 65+ Completed HPV Vaccine Aged Out Hepatitis B Vaccine Discontinued Colorectal Cancer Screening Discontinued Shingrix Vaccine Discontinued Data reviewed Component Latest Ref Rng & Units 08/16/2022 02/21/2023 WBC 3.70 - 11.00 k/uL 7.05 RBC 4.20 - 6.00 m/uL 5.05 Hemoglobin 13.0 - 17.0 g/dL 13.9 Hematocrit 39.0 - 51.0 % 43.0 MCV 80.0 - 100.0 fL 85.1 MCH 26.0 - 34.0 pg 27.5 MCHC 30.5 - 36.0 g/dL 32.3 RDW-CV 11.5 - 15.0 % 13.2 Platelet Count 150 - 400 k/uL 181 MPV 9.0 - 12.7 fL 10.2 Neut% % 68.3 Abs Neut (ANC) 1.45 - 7.50 k/uL 4.81 Lymph% % 21.4 Abs Lymph 1.00 - 4.00 k/uL 1.51 [place]% % 7.7 Abs [place] <0.87 k/uL 0.54 Eosin% % 1.8 Abs Eosin <0.46 k/uL 0.13 Baso% % 0.4 Abs Baso <0.11 k/uL 0.03 Immature Gran % % 0.4 IMMATURE GRANS (ABS) <0.10 k/uL 0.03 NRBC /100 WBC 0.0 Absolute nRBC <0.01 k/uL <0.01 DTYPE Auto Total Cholesterol, Nonfasting <200 mg/dL 105 101 Triglycerides, Nonfasting <150 mg/dL 135 146 HDL Cholesterol, Nonfasting >39 mg/dL 34 (L) 33 (L) LDL Cholesterol, Nonfasting <100 mg/dL 44 39 Non HDL Cholesterol, Nonfasting <130 mg/dL 71 68 VLDL Cholesterol, Nonfasting <30 mg/dL 27 29 Total Chol/HDL Ratio, Nonfasting <5.10 mg/dL 3.09 3.06 LDL/HDL Ratio, Nonfasting <2.54 mg/dL 1.29 1.18 Hemoglobin A1C 4.3 - 5.6 % 6.5 (H) 6.3 (H) Estimated Average Glucose mg/dL 140 134 TSH 0.270 - 4.200 mIU/L 0.227 (L) 1.670 A/P ASSESSMENT/PLAN: 1. Controlled type 2 diabetes mellitus without complication, without long-term current use of insulin (HCC) - ICD9: 250.00, ICD10: E11.9 (primary diagnosis) - Controlled - Continue current medications - Counseled on healthy diet and regular exercise - Discussed need for and benefit of weight loss. BMI 28.27 kg/(m^2) 2. Diabetic eye exam (HCC) - ICD9: V72.0, 250.00, ICD10: Z01.00, E11.9 - has appt coming up. 3. Essential hypertension - ICD9: 401.9, ICD10: I10 - Controlled - Continue current medications - Recommend home blood pressure monitoring, to bring results to next visit - Encouraged sodium restriction, DASH or Mediterranean diet - Recommend regular aerobic exercise 4. Mixed hyperlipidemia - ICD9: 272.2, ICD10: E78.2 - Controlled - Continue current medications - Counseled on healthy diet and regular exercise 5. Post-surgical hypothyroidism - ICD9: 244.0, ICD10: E89.0 - Instructed patient on importance of taking on an empty stomach either first thing in the morning or at bedtime. Change synthroid to 175 mcg MOn-Sat and Two on Sun. In two months check - TSH BLD 6. Bilateral carotid artery stenosis - ICD9: 433.10, 433.30, ICD10: I65.23 - cont current Tx. 7. Gastroesophageal reflux disease without esophagitis - ICD9: 530.81, ICD10: K21.9 - Continue treatment with Prilosec 20 mg QD 8. Primary thyroid papillary carcinoma (HCC) - ICD9: 193, ICD10: C73 - as above - LEVOTHYROXINE 175 MCG TABLET 9. History of lung cancer - ICD9: V10.11, ICD10: Z85.118 - clinically stable 10. Hypomagnesemia - ICD9: 275.2, ICD10: E83.42 - stable 11. Chronic left shoulder pain - ICD9: 719.41, 338.29, ICD10: M25.512, G89.29 Check - XR SHOULDER GENERAL 3V OR MORE AP/TRUE AP/OTHER LEFT - Hep given 13. 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 Requested Prescriptions Signed Prescriptions Disp Refills levothyroxine (SYNTHROID) 175 mcg tablet 102 tablet 1 Sig: Take 1 tablet by mouth once daily. Mon-Sat and two on Saturday F/u 6 months extensive check CMP, Lipid, UA, A1c, urine micro albumin, CBC, B12, Mg, TSH prior prior I spent a total of 44 minutes on the date of the service which included preparing to see the patient, [id number] patient care, completing clinical documentation, performing a medically appropriate examination, counseling and educating the patient/family/caregiver and ordering medications, tests, or procedures. Yvan Rahman MD documented in this encounterJoint Township [facility]08-18-2023 Miscellaneous Notes* Telephone Encounter - Iman Winn LPN - 12/28/2022 10:26 AM EDT Patient has been identified by name and date of : Yes, Provider Dr. Rahman Date 12/28/22 Time 10:27 am Pharmacy phones for refill(s): Requested Prescriptions Pending Prescriptions Disp Refills levothyroxine (SYNTHROID) 175 mcg tablet 90 tablet 1 Sig: Take 1 tablet by mouth once daily. Date of last office visit in primary care: 08/23/22 next apt 02/25/23 Last 2 Encounter Wt Readings: Date: Wt: 08/23/2022 87.1 kg (192 lb) 02/08/2022 87.5 kg (193 lb) Previous labs/tests for medication: Thyroid: TSH Date Value 08/16/2022 0.227 mIU/L 07/06/2021 0.595 uU/mL Thank you. Iman Winn LPN documented in this encounterJoint Township District [facility]07-24-2023 Miscellaneous Notes* Telephone Encounter - Carlos A Morrison LPN - 12/03/2022 8:07 AM EDT Last refill 05/08/22 Qty: 90 with 1 refill WAN 08/23/22 NOV 02/25/23 Carlos A Morrison LPN documented in this encounterJoint [facility]05-16-2023 Miscellaneous Notes* Telephone Encounter - Iman Winn LPN - 09/25/2022 8:07 AM EDT Patient has been identified by name and date of : Yes, Provider Dr. Rahman Date 09/25/22 Time 8:10 am Patient phones for refill(s): Requested Prescriptions Pending Prescriptions Disp Refills SITagliptin-metFORMIN (JANUMET XR) 100-1,000 mg TM24 90 tablet 1 Sig: Take 1 tablet by mouth once daily. losartan (COZAAR) 100 mg tablet 90 tablet 1 Sig: Take 1 tablet by mouth once daily. Date of last office visit in primary care: 08/23/22 next apt 02/25/23 Last 2 Encounter Wt Readings: Date: Wt: 08/23/2022 87.1 kg (192 lb) 02/08/2022 87.5 kg (193 lb) Previous labs/tests for medication: Diabetes: Hemoglobin A1C (%) Date Value 08/16/2022 6.5 02/05/2022 6.3 01/18/2021 7.2 07/11/2020 7.3 Blood Pressure: BUN (mg/dL) Date Value 08/16/2022 18 07/06/2021 22 Sodium (mmol/L) Date Value 08/16/2022 139 07/06/2021 139 Last 1 Encounter BP Readings: Date: BP: 08/23/2022 132/78 Thank you. Iman Winn LPN documented in this encounterJoint [facility]05-15-2023 Miscellaneous Notes* Telephone Encounter - Yvan Rahman MD - 09/24/2022 5:17 PM EDT The following approved medication requests have been transmitted electronically. Requested Prescriptions Signed Prescriptions Disp Refills diphenoxylate-atropine (LOMOTIL) 2.5-0.025 mg per tablet 180 tablet 1 Sig: Take 1 tablet by mouth twice daily as needed for diarrhea for up to 180 days. Authorizing Provider: YVAN RAHMAN metFORMIN ER (GLUCOPHAGE XR) 500 mg 24 hr tablet 180 tablet 1 Sig: TAKE 2 TABLETS BY MOUTH ONE TIME DAILY 12 HOURS APART FROM JANUMET Authorizing Provider: YVAN RAHMAN MD PDMP website checked and validated. All prescriptions have been APPROPRIATELY filled. No suspiciousactivity was identified. 09/24/2022 by Yvan Rahman MD * Telephone Encounter - Angélica Mendoza MA - 09/24/2022 3:29 PM EDT Patient has been identified by name and date of : Yes Requested Prescriptions Pending Prescriptions Disp Refills diphenoxylate-atropine (LOMOTIL) 2.5-0.025 mg per tablet 180 tablet 1 Sig: Take 1 tablet by mouth twice daily as needed for diarrhea for up to 180 days. metFORMIN ER (GLUCOPHAGE XR) 500 mg 24 hr tablet 180 tablet 1 Sig: TAKE 2 TABLETS BY MOUTH ONE TIME DAILY 12 HOURS APART FROM JANUMET RX INSTRUCTIONS: Patient aware RX will be sent to pharmacy. No need to notify patient. Patient last office visit: 08/23/22 Patient next office visit: 02/25/23 Angélica Mendoza MA documented in this encounterJoint Township District [facility] Hospital04-13-2023 Instructions* Patient Instructions* Yvan Rahman MD - 08/23/2022 2:09 PM EDT Please bring in copies of your power of assistant prosecuting attorney for health care and living will. Please get labs and urine test done on or after 02/08/2023 prior to your next visit. documented in this encounterJoint Township District [facility] Hospital04-13-2023 History of Present illness Narrative* Yvan Rahman MD - 08/23/2022 1:00 PM EDT Medicare Yearly Visit Medical B eligibilty date 04/12/2007 Date of last exam 08/02/2021 PAST MEDICAL HISTORY PAST MEDICAL HISTORY Diagnosis Date Calculus of kidney 02/11/2007 Contact dermatitis and other eczema, due to unspecified cause 02/11/2007 Bilateral metacarpals, elbow - mild Diarrhea Diverticulosis of colon (without mention of hemorrhage) 02/11/2007 Finding on Colonoscopy 2000 Esophageal reflux 02/11/2007 Family history of ischemic heart disease 02/11/2007 Father age 54 [place] Internal hemorrhoids without mention of complication Lung cancer, upper lobe (HCC) 08/21/13: Right. NSCLC. Neg EBUS staging of mediastinum. Type II or unspecified type diabetes mellitus without mention of complication, uncontrolled 02/11/2007 Unspecified essential hypertension 02/11/2007 Unspecified hearing loss 02/11/2007 Dr. Carrion, [facility], Stapedectomy VTE Prophylaxis 09/29/2013 The pt was on Lovenox 40mg SC daily and SCD for VTE prophylaxis. No signs or symptoms of DVT/PE. The patient is at High risk for VTE. Plan: - KATIE - Encourage continued ambulation . PAST SURGICAL HISTORY PAST SURGICAL HISTORY Procedure Laterality Date CAROTID ULTRASOUND BILATERAL COLONOSCOP W/ OR W/O [facility] SPEC 2000 Colonoscopy COLONOSCOP W/ OR W/O [facility] SPEC 11/27/07 PAST SURGICAL HISTORY OF 09/28/2013 Rt upper lung lobectomy for CA REPAIR FEMORAL HERNIA,REDUCIBLE 1980s STAPEDECTOMY Left Ear STRESS (SPECT) 2004? Treadmill Stress Test, [place] STRESS TEST 07/08/2013 NL Penicillins Medications reviewed: Yes FAMILY HISTORY FAMILY HISTORY Problem Relation Age of Onset Breast Cancer Mother age 51 Heart Father [place] age 54 Diabetes Sister Heart also None Sister h/o breast ca None Sister None Brother SOCIAL HISTORY: Social History Marital status: Spouse name: Lisa Years of education: Number of children: 1 Occupational History Occupation Employer Comment [id number] Social History Main Topics Smoking status: Never Smoker Smokeless status: Never Used Comment: Parents and spouse non smokers. Alcohol use: No Drug use: No Sexual activity: Yes Partners with: Female Social History Narrative No known exposures. Santos gets minimal exercise. He watches his diet for sodium, low fat and low cholesterol generallynot very much. List of current specialists seen: Dr. Krueger (Derm) Dr. Rajan (Urology): sopped seeing End of Live Planning discussed including patients advanced directive wishes: Yes I am willing to follow Santos's advanced directives. Depression screen Depression Screening 12/26/2018 07/09/2020 02/08/2022 08/23/2022 PHQ-2 Score 0 0 0 0 Depression screening tool completed and reviewed. Based on score and interview, patient is not at risk for depression. Screening tool discussed with patient, and I recommended no further interventionat this time. Functional Ability/Safety Screen 1. Was the patient's timed Up and Go test unsteady or longer than 30 seconds? No 2. Does the patient need help with the phone, transportation, shopping,preparing meals, housework, laundry, medications or managing money? No 3. Does your home have rugs in the hallway, lack of grab bars in the bathroom, lack of handrails onthe stairs or have poor lighting? No Hearing Evaluation: normal PHYSICAL EXAM BP 132/78 (BP Site: Left Arm, BP Position: Sitting, BP Cuff Size: Regular Adult) Pulse 70 Resp 16 Ht 177.8 cm (5' 10) Wt 87.1 kg (192 lb) BMI 27.55 kg/m Alert and oriented X 3: YES Body mass index is 27.55 kg/(m^2). See below ASSESSMENT/PLAN: 82 year old male The following prevention plan was discussed during the office visit and provided to the patient: See below Yvan Rahman MD Chief Complaint Patient presents with: Medicare Wellness Exam HPI Santos Morel is a 82 year old male who presents here today for chronic medical conditions andMedicare Annual Visit. Office visit Medicare Wellness Patient did mentioned some left shoulder pain x 1 month. No injury. Stiff to abduct and forward flex. Patient also had a Carotid US completed. Patient does have an upcoming eye appointment with Dr. Poe at [facility] [place]. Patient will have provider fax that visit. Office visit 6 month follow up 02/08/2022 Patient with Hx of DM 2, HTN, GERD, Hyperlipidemia, lung cancer s/p resection, papillary thyroid cancer s/p removal as well as those reviewed and addressed below and in ROS Past medical history, appointments, medications, allergies reviewed. Previous Medical History PAST MEDICAL HISTORY Diagnosis Date Abnormal CT of liver 07/07/2018 2017: suspected cirrhosis. Saw Dr. Rocha [facility] who felt this was not cirrhosis. Actinic keratosis 03/06/2007 Benign non-nodular prostatic hyperplasia with lower urinary tract symptoms 03/16/2015 History of BPH. takes flomax at home. Voiding without difficulty Plan; - resume flomax 09/29/2013 - voiding Calculus of kidney 02/11/2007 Contact dermatitis and other eczema, due to unspecified cause 02/11/2007 Bilateral metacarpals, elbow - mild Controlled type 2 diabetes mellitus without complication, without long-term current use of insulin ([facility]) 03/05/2015 Current use of proton pump inhibitor 12/12/2016 Mg checked 11/2017 Deviated nasal septum 06/15/2009 Diabetic eye exam ([facility]) 08/27/2014 Last done: 02/13/18 No Retinopathy Diverticulosis of large intestine 02/11/2007 Finding on Colonoscopy 2000 Elevated C-reactive protein (CRP) 08/27/2007 Elevated prostate specific antigen (PSA) 03/16/2015 Essential hypertension 03/05/2015 Family history of ischemic heart disease 02/11/2007 Father age 54 [place] Gastroesophageal reflux disease without esophagitis 03/05/2015 History of kidney stones 05/19/2014 History of lung cancer 01/20/2021 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 Released(01/07/2019) Hypomagnesemia 06/30/2019 Internal hemorrhoids without mention of complication Living will in place 08/02/2021 DPA: (Lisa) Lung cancer, upper lobe (HCC) 08/21/13: Right. NSCLC. Neg EBUS staging of mediastinum. Malignant neoplasm of upper lobe of right lung (HCC) 03/16/[address] Maria: Adenocarcinoma Stage IB, Refused chemo. Malignant neoplasm of upper lobe of right lung (HCC) 03/16/2015 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 Maria: Adenocarcinoma Stage IB, Refused chemo. 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 Carrion, [facility], Stapedectomy Upper back pain on left side 03/16/2015 VTE Prophylaxis 09/29/2013 The pt was on Lovenox 40mg SC daily and SCD for VTE prophylaxis. No signs or symptoms of DVT/PE. The patient is at High risk for VTE. Plan: - KATIE - Encourage continued ambulation . Previous Surgical History PAST SURGICAL HISTORY Procedure Laterality Date CAROTID ULTRASOUND BILATERAL COLONOSCOPY FLX DX W/COLLJ SPEC WHEN PFRMD 2000 Colonoscopy COLONOSCOPY FLX DX W/COLLJ SPEC WHEN PFRMD 11/27/07 PAST SURGICAL HISTORY OF 09/28/2013 Rt upper lung lobectomy for CA RPR FEM HRNA ANY AGE REDUCIBLE STAPEDECTOMY/STAPEDOTOMY Left Ear STRESS (SPECT) 2004? Treadmill Stress Test, [place] STRESS TEST 07/08/2013 NL Family History FAMILY HISTORY Problem Relation Age of Onset Breast Cancer Mother age 51 Heart Father [place] age 54 Diabetes Sister Heart also Breast Cancer Sister Lung Cancer Sister None Sister None Brother Patient Allergies ALLERGIES Allergen Reactions Penicillins Unknown Not sure he has allergy Current Medications Current Outpatient Medications on File Prior to Visit Medication Sig omeprazole (PRILOSEC) 20 mg capsule Take 1 capsule by mouth once daily. tamsulosin (FLOMAX) 0.4 mg Take 1 capsule by mouth twice daily. glimepiride (AMARYL) 2 mg tablet Take 1 tablet by mouth twice daily with meals. levothyroxine (SYNTHROID) 175 mcg tablet Take 1 tablet by mouth once daily. losartan (COZAAR) 100 mg tablet Take 1 tablet by mouth once daily. SITagliptin-metFORMIN (JANUMET XR) 100-1,000 mg TM24 Take 1 tablet by mouth once daily. pravastatin (PRAVACHOL) 40 mg tablet Take 1 tablet by mouth daily at bedtime. DUPIXENT PEN 300 mg/2 mL pen Inject 300 mg subcutaneously every [address] Evans Sommer metFORMIN ER (GLUCOPHAGE XR) 500 mg 24 hr tablet TAKE 2 TABLETS BY MOUTH ONE TIME DAILY 12 HOURS APART FROM JANUMET diphenoxylate-atropine (LOMOTIL) 2.5-0.025 mg per tablet Take 1 tablet by mouth twice daily as needed for diarrhea for up to 180 days. (Patient taking differently: Take 1 tablet by mouth twice daily as needed for diarrhea. Take one tablet every other day) ZINC ORAL Take 50 mg by mouth. ascorbic acid (VITAMIN C ORAL) Take by mouth. (Patient not taking: Reported on 02/08/2022) Cholecalciferol, Vitamin D3, 50 mcg (2,000 unit) cap Take by mouth once daily. ASPIRIN 81 MG TAB Take one(1) tablet daily. No current facility-administered medications on file prior to visit. Social History Social History Tobacco Use Smoking status: Never Smokeless tobacco: Never Tobacco comments: Parents and spouse non smokers. Substance Use Topics Alcohol use: No Drug use: No Review of Symptoms REVIEW OF SYSTEMS GENERAL: No weight loss, malaise or fevers HEENT: Negative for frequent or significant headaches, No changes in hearing or vision, no nose bleeds or other nasal problems NECK: Negative for lumps, goiter, pain and significant neck swelling RESPIRATORY: Negative for cough, hemoptysis, wheezing, COPD, dyspnea or shortness of breath CARDIOVASCULAR: Negative for chest pain, leg swelling, hypertension, CHF or palpitations GI: No nausea, vomiting, or diarrhea, No heartburn or reflux symptoms, and no blood : No history of dysuria, blood MUSCULOSKELETAL: see HPI. SKIN: Negative for lesions, rash, and itching PSYCH: Negative for sleep disturbance, mood disorder and recent psychosocial stressors HEMATOLOGY/LYMPHOLOGY: Negative for prolonged bleeding, bruising easily or swollen nodes ENDOCRINE: Negative for cold or heat intolerance, symptoms of low BS's NEURO: No history of headaches, syncope, paralysis, seizures or tremors EXAM: BP 132/78 (BP Site: Left Arm, BP Position: Sitting, BP Cuff Size: Regular Adult) Pulse 70 Resp 16 Ht 177.8 cm (5' 10) Wt 87.1 kg (192 lb) BMI 27.55 kg/m Last 5 Encounter Wt Readings: Date: Wt: 08/23/2022 87.1 kg (192 lb) 02/08/2022 87.5 kg (193 lb) 08/02/2021 87.1 kg (192 lb) 01/20/2021 90.3 kg (199 lb) 07/15/2020 91.2 kg (201 lb) General Appearance: Well appearing, alert, in no acute distress, well-hydrated, well nourished. andOverweight. Skin: Skin color, texture, turgor normal, no suspicious rashes or lesions. Head: Normocephalic, no masses, lesions, tenderness or abnormalities. Eyes: Anicteric sclera. Pupils are equally round and reactive to light. Extraocular movements are intact. . Ears: External ears, TM's, normal, canals clear. Neck: Supple, no adenopathy; thyroid symmetric, normal size, no bruits. Lungs: Lungs clear to auscultation. No wheezing, rhonchi, rales.. Heart: RRR without murmur, gallop, or rubs. No ectopy. Abdomen: Normal abdominal exam, Abdomen soft, non-tender. Bowel sounds normal. No masses, organomegaly. Extremities: No deformities, edema, skin discoloration, clubbing or cyanosis. Good capillary refill. . Musculoskeletal: Muscular strength intact, No joint swelling, deformity, or tenderness. Peripheral Pulses: Normal. Neurologic: Gait normal. Reflexes normal and symmetric. Sensation to light touch intact.. Genitalia: declined. Health Maintenance List BP CONTROLLED (<130/80) due on 07/15/2021 DILATED RETINAL EXAM due on 03/13/2022 ADVANCE DIRECTIVE DISCUSSION due on 05/13/2022 DEPRESSION ASSESSMENT Never done DIABETIC FOOT EXAM due on 08/02/2022 COVID-19 VACCINE(4 - Booster for Pfizer series) due on 02/08/2023 ANNUAL PCP TEAM CHRONIC DISEASE VISIT due on 02/08/2023 HBA1C due on 02/15/2023 URINE ALBUMIN:CREATININE RATIO due on 08/17/2023 LDL CHOLESTEROL due on 08/17/2023 DTAP,TDAP,TD(3 - Td or Tdap) due on 01/11/2028 INFLUENZA Completed PNEUMOCOCCAL: 65+ Completed SHINGRIX VACCINE Discontinued Data reviewed Component Latest Ref Rng & Units 07/21/2021 02/05/2022 08/16/2022 WBC 3.70 - 11.00 k/uL 7.05 RBC 4.20 - 6.00 m/uL 5.05 Hemoglobin 13.0 - 17.0 g/dL 13.9 Hematocrit 39.0 - 51.0 % 43.0 MCV 80.0 - 100.0 fL 85.1 MCH 26.0 - 34.0 pg 27.5 MCHC 30.5 - 36.0 g/dL 32.3 RDW-CV 11.5 - 15.0 % 13.2 Platelet Count 150 - 400 k/uL 181 MPV 9.0 - 12.7 fL 10.2 Neut% % 68.3 Abs Neut (ANC) 1.45 - 7.50 k/uL 4.81 Lymph% % 21.4 Abs Lymph 1.00 - 4.00 k/uL 1.51 Coamo% % 7.7 Abs Coamo <0.87 k/uL 0.54 Eosin% % 1.8 Abs Eosin <0.46 k/uL 0.13 Baso% % 0.4 Abs Baso <0.11 k/uL 0.03 Immature Gran % % 0.4 IMMATURE GRANS (ABS) <0.10 k/uL 0.03 NRBC /100 WBC 0.0 Absolute nRBC <0.01 k/uL <0.01 DTYPE Auto Protein, Total 6.3 - 8.0 g/dL 7.1 Albumin 3.9 - 4.9 g/dL 4.1 Calcium 8.5 - 10.2 mg/dL 9.2 Bilirubin, Total 0.2 - 1.3 mg/dL 1.0 Alkaline Phosphatase 38 - 113 U/L 64 AST 14 - 40 U/L 25 ALT 10 - 54 U/L 24 Glucose 74 - 99 mg/dL 174 (H) BUN 9 - 24 mg/dL 18 Creatinine 0.73 - 1.22 mg/dL 1.01 Sodium 136 - 144 mmol/L 139 Potassium 3.7 - 5.1 mmol/L 4.5 Chloride 97 - 105 mmol/L 103 CO2 22 - 30 mmol/L 25 Anion Gap 9 - 18 mmol/L 11 eGFR >=60 mL/min/1.73m 75 Color Yellow Yellow Yellow Clarity Clear Clear Clear Glucose, Urine Trace, Negative 1+ (A) Negative Bilirubin, Urine Negative Negative Negative Ketones, Urine Trace, Negative Trace (A) Trace Specific Howes, Ur 1.005 - 1.030 1.026 1.027 Hemoglobin/Blood,Ur Negative, Trace Negative Negative pH, Urine 5.0 - 8.0 6.0 5.5 Protein, Urine Trace, Negative 1+ (A) Trace Urobilinogen Negative 1+ (A) Negative Nitrites Negative Negative Negative Leukest Negative, 25 Flavia/uL Negative Negative WBC, Urine 0-5 /HPF 0-5 /HPF 0-5 /HPF RBC, Urine 0-3 /HPF 0-3 /HPF 0-3 /HPF Epithelial Cells /HPF Few Few Total Cholesterol, Nonfasting <200 mg/dL 111 101 105 Triglycerides, Nonfasting <150 mg/dL 82 135 135 HDL Cholesterol, Nonfasting >39 mg/dL 39 (L) 31 (L) 34 (L) LDL Cholesterol, Nonfasting <100 mg/dL 56 43 44 Non HDL Cholesterol, Nonfasting <130 mg/dL 72 70 71 VLDL Cholesterol, Nonfasting <30 mg/dL 16 27 27 Total Chol/HDL Ratio, Nonfasting <5.10 mg/dL 2.85 3.26 3.09 LDL/HDL Ratio, Nonfasting <2.54 mg/dL 1.44 1.39 1.29 Creatinine, Ur Random (UCRR) 20.0 - 300.0 mg/dL 220.7 221.9 Albumin, Urine Random mg/L 22.2 22.1 Albumin/Creat Ratio <30 mg/g 10 10 Hemoglobin A1C 4.3 - 5.6 % 7.7 (H) 6.3 (H) 6.5 (H) Estimated Average Glucose mg/dL 174 134 140 Thyroglobulin Ab, Serum <4.0 IU/mL <0.9 Thyroglobulin, Serum 1.6 - 50.0 ng/mL 18.3 Vitamin B12 232 - 1,245 pg/mL 345 614 Magnesium 1.7 - 2.3 mg/dL 1.7 1.7 TSH 0.270 - 4.200 mIU/L 0.723 0.227 (L) A/P ASSESSMENT/PLAN: 1. Medicare annual wellness visit, subsequent - ICD9: V70.0, ICD10: Z00.00 (primary diagnosis) - Counseled on healthy diet and regular exercise - Discussed need for and benefit of weight loss. BMI 27.55 kg/(m^2) - Follow up for annual exam in one year 2. Controlled type 2 diabetes mellitus without complication, without long-term current use of insulin (HCC) - ICD9: 250.00, ICD10: E11.9 - Controlled - Continue current medications - Counseled on healthy diet and regular exercise - Discussed need for and benefit of weight loss. BMI 27.55 kg/(m^2) 3. Diabetic eye exam (HCC) - ICD9: V72.0, 250.00, ICD10: Z01.00, E11.9 - will be up dated in near future. 4. Essential hypertension - ICD9: 401.9, ICD10: I10 - good control - Continue current medication(s) - Recommended regular aerobic exercise. - Recommend home blood pressure monitoring, to bring results in on next visit - Goal of BP <130/80 5. Mixed hyperlipidemia - ICD9: 272.2, ICD10: E78.2 - good control - Encouraged following a low fat, low cholesterol diet. - Discussed the benefits of regular aerobic exercise and weight loss. - Encouraged following a low carbohydrate, healthy oil intake diet. - Continue current therapy. 6. Gastroesophageal reflux disease without esophagitis - ICD9: 530.81, ICD10: K21.9 - Continue treatment with Prilosec 20 mg QD 7. Primary thyroid papillary carcinoma (HCC) - ICD9: 193, ICD10: C73 - stable no changes. 8. Post-surgical hypothyroidism - ICD9: 244.0, ICD10: E89.0 - Instructed patient on importance of taking on an empty stomach either first thing in the morning or at bedtime. - continue current dose of Synthroid 9. Hypomagnesemia - ICD9: 275.2, ICD10: E83.42 - controlled. 10. History of lung cancer - ICD9: V10.11, ICD10: Z85.118 - stable clinically. 11. Benign non-nodular prostatic hyperplasia with lower urinary tract symptoms - ICD9: 600.91, ICD10: N40.1 - stable 12. Advance directive discussed with patient - ICD9: V65.49, ICD10: Z71.89 - patient to bring in copies. 14. Bilateral carotid artery stenosis - ICD9: 433.10, 433.30, ICD10: I65.23 - will cont Tx and monitor. F/u 6 months check lipid, A1c and TSH prior I spent a total of 40 minutes on the date of the service which included preparing to see the patient, [id number] patient care, completing clinical documentation, performing a medically appropriate examination, counseling and educating the patient/family/caregiver and ordering medications, tests, or procedures. Yvan Rahman MD documented in this encounterJoint [facility]03-30-2023 Miscellaneous Notes* Telephone Encounter - AMIRAH Becerra - 08/09/2022 1:33 PM EDT Patient has been identified by name and date of : Yes, Patient phones for refill(s): Requested Prescriptions Pending Prescriptions Disp Refills tamsulosin (FLOMAX) 0.4 mg 180 capsule 1 Sig: Take 1 capsule by mouth twice daily. glimepiride (AMARYL) 2 mg tablet 180 tablet 1 Sig: Take 1 tablet by mouth twice daily with meals. Refused Prescriptions Disp Refills levothyroxine (SYNTHROID) 175 mcg tablet 90 tablet 1 Sig: Take 1 tablet by mouth once daily. Date of last office visit in primary care: [facility] 02/08/2022 Appointment scheduled 08/23/22 Last 2 Encounter Wt Readings: Date: Wt: 02/08/2022 87.5 kg (193 lb) 08/02/2021 87.1 kg (192 lb) Please advise. Thank you. AMIRAH Becerra documented in this encounterJoint [facility]03-30-2023 Miscellaneous Notes* Telephone Encounter - Magali Ortiz LPN - 08/09/2022 1:29 PM EDT Patient has been identified by name and date of : Yes Patient phones for refill(s): Requested Prescriptions Pending Prescriptions Disp Refills omeprazole (PRILOSEC) 20 mg capsule 90 capsule 1 Sig: Take 1 capsule by mouth once daily. Date of last office visit in primary care: 02/08/2022 Next appointment scheduled 08/23/2022 Please advise. Thank you. Magali Ortiz LPN documented in this encounterJoint Township District [facility]02-21-2023 Miscellaneous Notes* Telephone Encounter - Tata Nava RN - 07/03/2022 1:58 PM EST Last Office Visit: 02/08/2022 Future Office Visit: 08/23/2022 Requested Prescriptions Pending Prescriptions Disp Refills levothyroxine (SYNTHROID) 175 mcg tablet 90 tablet 1 Sig: Take 1 tablet by mouth once daily. Date of Last Labs: 02/05/2022 documented in this encounterJoint Township District [facility]01-30-2023 Miscellaneous Notes* Telephone Encounter - Clarisa Cottrell RN - 06/11/2022 9:52 AM EST Patient has been identified by name and date of : Yes, Provider Clarisa Cottrell RN Date 06/11/2022 Time 9:38 am Pharmacy phones for refill(s): Requested Prescriptions Pending Prescriptions Disp Refills losartan (COZAAR) 100 mg tablet 90 tablet 1 Sig: Take 1 tablet by mouth once daily. Date of last office visit with pcp: 02/08/2022 Future appt: 08/23/2022 Last 2 Encounter Wt Readings: Date: Wt: 02/08/2022 87.5 kg (193 lb) 08/02/2021 87.1 kg (192 lb) Previous labs/tests for medication: Blood Pressure: BUN (mg/dL) Date Value 07/06/2021 22 Sodium (mmol/L) Date Value 07/06/2021 139 Last 1 Encounter BP Readings: Date: BP: 02/08/2022 130/80 Liver Function: ALT (U/L) Date Value 07/06/2021 29 AST (U/L) Date Value 07/06/2021 24 Please advise. Thank you. Clarisa Cottrell RN documented in this encounterJoint Township District [facility]12-27-2022 Miscellaneous Notes* Telephone Encounter - Argentina Cunningham RN - 05/08/2022 12:26 PM EST Patient has been identified by name and date of : Yes, Provider Nellie Cunningham RN Date 05-08-22 Time 12:27 pm Pharmacy phones for refill(s): Requested Prescriptions Pending Prescriptions Disp Refills SITagliptin-metFORMIN (JANUMET XR) 100-1,000 mg TM24 90 tablet 1 Sig: Take 1 tablet by mouth once daily. pravastatin (PRAVACHOL) 40 mg tablet 90 tablet 1 Sig: Take 1 tablet by mouth daily at bedtime. Date of last office visit with pcp: 02-08-22. Next appt: 08-23-22 Last 2 Encounter Wt Readings: Date: Wt: 02/08/2022 87.5 kg (193 lb) 08/02/2021 87.1 kg (192 lb) Previous labs/tests for medication: Diabetes: Hemoglobin A1C (%) Date Value 02/05/2022 6.3 07/21/2021 7.7 01/18/2021 7.2 07/11/2020 7.3 Cholesterol: HDL Cholesterol (mg/dL) Date Value 06/20/2018 30 HDL Cholesterol, Nonfasting (mg/dL) Date Value 02/05/2022 31 01/18/2021 32 LDL Cholesterol (mg/dL) Date Value 06/20/2018 40 LDL Cholesterol, Nonfasting (mg/dL) Date Value 02/05/2022 43 01/18/2021 27 ALT (U/L) Date Value 07/06/2021 29 Non HDL Cholesterol, Nonfasting (mg/dL) Date Value 02/05/2022 70 01/18/2021 48 Liver Function: ALT (U/L) Date Value 07/06/2021 29 AST (U/L) Date Value 07/06/2021 24 Please advise. Thank you. Argentina Cunningham RN documented in [facility] encounter[facility] Miscellaneous Notes* Telephone Encounter - Ute Marr Ma - 02/02/2022 12:08 PM EDT Last office visit: 08/02/21 F/u scheduled: 02/08/22 Ute Marr Ma documented in this encounterJoint [facility]22 Miscellaneous Notes* Telephone Encounter - Ute Marr Ma - 02/02/2022 12:07 PM EDT Last office visit: 08/02/21 F/u scheduled: 02/08/22 Ute Marr Ma documented in this encounterJoint [facility]-2022 Miscellaneous Notes* Telephone Encounter - Carlos A Morrison LPN - 01/09/2022 10:53 AM EDT Last refill 06/19/21 Qty: 90 with 1 refill WAN 08/02/21 NOV 02/08/22 Last TSH 07/06/21 0.595 Carlos A Morrison LPN documented in this encounterJoint [facility]-2022 Miscellaneous Notes* Telephone Encounter - Ute Marr Ma - 12/18/2021 12:31 PM EDT Last office visit: 08/02/21 F/u scheduled: 02/08/22 Ute Marr Ma documented in this encounterJoint [facility]-2022 Miscellaneous Notes* Telephone Encounter - Yvan Rahman MD - 11/23/2021 3:56 PM EDT The following approved medication requests have been transmitted electronically. Signed Prescriptions Disp Refills omeprazole (PRILOSEC) 20 mg capsule 90 capsule 1 Sig: Take 1 capsule by mouth once daily. SUSU: No Authorizing Provider: YVAN RAHMAN MD * Telephone Encounter - Tata Nava RN - 11/23/2021 1:26 PM EDT Last Office Visit: 08/02/2021 Future Office Visit: 02/07/2022 Last Medication Refill: omeprazole 05/31/2021 90 cap 1 refill Date of Last Labs: 07/21/2021 documented in this encounterJoint [facility]07-[facility]-2022 Miscellaneous Notes* Telephone Encounter - Fletcher Parks MA - 11/17/2021 10:06 AM EDT Patient notified and voiced understanding. Fletcher Parks MA * Telephone Encounter - Yvan Rahman MD - 11/17/2021 8:52 AM EDT Patient will need a virtual appt to consider prescribing antiviral this can even be done through express care on line. * Telephone Encounter - Jenelle Hdz LPN - 11/17/2021 8:21 AM EDT Patient Lisa calling began Saturday evening with runny nose, cough, congestion, fever, dizziness, first home test was negative. Did another home COVID test was positive. He is using mucinex and tylenol. is asking if he could have the antiviral rx? [facility] Also asking if he should be taking anything else to help with symptoms? Please advise documented in this encounterJoint [facility]07-05-2022 Miscellaneous Notes* Telephone Encounter - Kristal Ramirez LPN - 11/14/2021 3:32 PM EDT Patient phones requesting refills as follows: Pending Prescriptions Disp Refills DIPHENOXYLATE-ATROPINE 2.5 MG-0.025 MG TABLET 180 tablet 1 Sig: Take 1 tablet by mouth twice daily as needed for diarrhea for up to 180 days. ROSHAN Class: C-V SUSU: No WAN-08/02/21 Labs-07/21/21 NOV-02/07/22 med filled 01/25/21 ends 07/24/21 Please review and advise. Kristal Ramirez LPN documented in this encounterJoint [facility]07-05-2022 Miscellaneous Notes* Telephone Encounter - Carlos A Morrison LPN - 11/14/2021 2:37 PM EDT WAN 08/02/21 NOV 02/07/22 Carlos A Morrison LPN documented in this encounterJoint [facility]02-24-2022 History of Present illness Narrative* August Carrion RT(R) - 07/06/2021 3:50 PM EST Radiology Service Progress Note PATIENT NAME: Santos Morel DATE OF SERVICE: July 06, 2021 TIME: 3:45 PM PATIENT IDENTITY VERIFICATION COMPLETED USING TWO (2) IDENTIFIERS: Name and Date of confirmedby patient verbally. FALL SCREENING: Has the patient had 2 falls in the last year or 1 fall with injury or currently using an Ambulatory Assistive Device (Walker, Cane, Wheelchair, Crutches, etc.)? No PATIENT GENDER DATA: Male PATIENT RELEVANT IMPLANT DATA REVIEWED: Not Applicable RADIOLOGY DEPARTMENT: General X-ray: Exam(s) Completed: Chest X-Ray PERIPHERAL IV DATA: Not applicable SIGNED BY: RT Demetris(R) July 06, 2021 4:00 PM documented in this encounterJoint [facility]11-04-2015 History of Past illness Narrative* Problem Noted Date Resolved Date Malignant neoplasm of upper lobe of right lung 1 05/16/2014 01/20/2021 Overview: 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 Maria: Adenocarcinoma Stage IB, Refused chemo. Released (01/07/2019) Type II or unspecified type diabetes mellitus without mention of complication, uncontrolled 02/11/2007 03/03/2007 Calculus of kidney 02/11/2007 02/11/2007 Right VATS upper lobectomy 01/20 Overview: 08/21/13: Right. NSCLC. Neg EBUS staging of mediastinum. 09/28/2013 .1. Mediastinoscopy, Right VATS upper lobectomy,. Mediastinal lymphadenectomy.,Marcaine chest wall block. Chest tube removed, tree to bulb with increased drainage. Plan: - continue tree to bulb - continue oral pain medication - Heart healthy diet/DM diet - [place] documented as of this encounter (statuses as of 11/15/2021) [facility] of Past illness Narrative* Problem Noted Date Resolved Date Malignant neoplasm of upper lobe of right lung 1 05/16/2014 01/20/2021 Overview: 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 Maria: Adenocarcinoma Stage IB, Refused chemo. Released (01/07/2019) Type II or unspecified type diabetes mellitus without mention of complication, uncontrolled 02/11/2007 03/03/2007 Calculus of kidney 02/11/2007 02/11/2007 Right VATS upper lobectomy 01/20 Overview: 08/21/13: Right. NSCLC. Neg EBUS staging of mediastinum. 09/28/2013 .1. Mediastinoscopy, Right VATS upper lobectomy,. Mediastinal lymphadenectomy.,Marcaine chest wall block. Chest tube removed, tree to bulb with increased drainage. Plan: - continue tree to bulb - continue oral pain medication - Heart healthy diet/DM diet - Discharge 10[place]2013 [place] documented as of this encounter (statuses as of 11/15/2021) [facility] Past illness Narrative* Problem Noted Date Resolved Date Malignant neoplasm of upper lobe of right lung 1 05/16/2014 01/20/2021 Overview: 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 Maria: Adenocarcinoma Stage IB, Refused chemo. Released (01/07/2019) Type II or unspecified type diabetes mellitus without mention of complication, uncontrolled 02/11/2007 03/03/2007 Calculus of kidney 02/11/2007 02/11/2007 Right VATS upper lobectomy 01/20 Overview: 08/21/13: Right. NSCLC. Neg EBUS staging of mediastinum. 09/28/2013 .1. Mediastinoscopy, Right VATS upper lobectomy,. Mediastinal lymphadenectomy.,Marcaine chest wall block. Chest tube removed, tree to bulb with increased drainage. Plan: - continue tree to bulb - continue oral pain medication - Heart healthy diet/DM diet - Discharge 10[place]2013 [place] documented as of this encounter (statuses as of 11/17/2021) [facility] of Past illness Narrative* Problem Noted Date Resolved Date Malignant neoplasm of upper lobe of right lung 1 05/16/2014 01/20/2021 Overview: 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 Maria: Adenocarcinoma Stage IB, Refused chemo. Released (01/07/2019) Type II or unspecified type diabetes mellitus without mention of complication, uncontrolled 02/11/2007 03/03/2007 Calculus of kidney 02/11/2007 02/11/2007 Right VATS upper lobectomy 01/20 Overview: 08/21/13: Right. NSCLC. Neg EBUS staging of mediastinum. 09/28/2013 .1. Mediastinoscopy, Right VATS upper lobectomy,. Mediastinal lymphadenectomy.,Marcaine chest wall block. Chest tube removed, tree to bulb with increased drainage. Plan: - continue tree to bulb - continue oral pain medication - Heart healthy diet/DM diet - [place]charge [place] [facility] [place] [facility] documented as of this encounter (statuses as of 11/23/2021) [facility] Past illness Narrative* Problem Noted Date Resolved Date Malignant neoplasm of upper lobe of right lung 1 05/16/2014 01/20/2021 Overview: 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 Maria: Adenocarcinoma Stage IB, Refused chemo. Released (01/07/2019) Type II or unspecified type diabetes mellitus without mention of complication, uncontrolled 02/11/2007 03/03/2007 Calculus of kidney 02/11/2007 02/11/2007 Right VATS upper lobectomy 01/20 Overview: 08/21/13: Right. NSCLC. Neg EBUS staging of mediastinum. 09/28/2013 .1. Mediastinoscopy, Right VATS upper lobectomy,. Mediastinal lymphadenectomy.,Marcaine chest wall block. Chest tube removed, tree to bulb with increased drainage. Plan: - continue tree to bulb - continue oral pain medication - Heart healthy diet/DM diet - [place]charge [place] documented as of this encounter (statuses as of 12/18/2021) [facility] illness Narrative* Problem Noted Date Resolved Date Malignant neoplasm of upper lobe of right lung 1 05/16/2014 01/20/2021 Overview: 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 Maria: Adenocarcinoma Stage IB, Refused chemo. Released (01/07/2019) Type II or unspecified type diabetes mellitus without mention of complication, uncontrolled 02/11/2007 03/03/2007 Calculus of kidney 02/11/2007 02/11/2007 Right VATS upper lobectomy 01/20 Overview: 08/21/13: Right. NSCLC. Neg EBUS staging of mediastinum. 09/28/2013 .1. Mediastinoscopy, Right VATS upper lobectomy,. Mediastinal lymphadenectomy.,Marcaine chest wall block. Chest tube removed, tree to bulb with increased drainage. Plan: - continue tree to bulb - continue oral pain medication - Heart healthy diet/DM diet - Discharge 10/01/2013 [place] - documented as of this encounter (statuses as of 01/09/2022) [facility] Narrative* Problem Noted Date Resolved Date Malignant neoplasm of upper lobe of right lung 1 05/16/2014 01/20/2021 Overview: 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 Maria: Adenocarcinoma Stage IB, Refused chemo. Released (01/07/2019) Type II or unspecified type diabetes mellitus without mention of complication, uncontrolled 02/11/2007 03/03/2007 Calculus of kidney 02/11/2007 02/11/2007 Right VATS upper lobectomy 01/20 Overview: 08/21/13: Right. NSCLC. Neg EBUS staging of mediastinum. 09/28/2013 .1. Mediastinoscopy, Right VATS upper lobectomy,. Mediastinal lymphadenectomy.,Marcaine chest wall block. Chest tube removed, tree to bulb with increased drainage. Plan: - continue tree to bulb - continue oral pain medication - Heart healthy diet/DM diet - [place]charge [place] [facility] [place] [facility] documented as of this encounter (statuses as of 02/02/2022) [facility] illness Narrative* Problem Noted Date Resolved Date Malignant neoplasm of upper lobe of right lung 1 05/16/2014 01/20/2021 Overview: 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 Maria: Adenocarcinoma Stage IB, Refused chemo. Released (01/07/2019) Type II or unspecified type diabetes mellitus without mention of complication, uncontrolled 02/11/2007 03/03/2007 Calculus of kidney 02/11/2007 02/11/2007 Right VATS upper lobectomy 01/20 Overview: 08/21/13: Right. NSCLC. Neg EBUS staging of mediastinum. 09/28/2013 .1. Mediastinoscopy, Right VATS upper lobectomy,. Mediastinal lymphadenectomy.,Marcaine chest wall block. Chest tube removed, tree to bulb with increased drainage. Plan: - continue tree to bulb - continue oral pain medication - Heart healthy diet/DM diet - Discharge 10[place]01[place]2013 [place] documented as of this encounter (statuses as of 02/02/2022) [facility] illness Narrative* Problem Noted Date Resolved Date Malignant neoplasm of upper lobe of right lung 1 05/16/2014 01/20/2021 Overview: 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 Maria: Adenocarcinoma Stage IB, Refused chemo. Released (01/07/2019) Type II or unspecified type diabetes mellitus without mention of complication, uncontrolled 02/11/2007 03/03/2007 Calculus of kidney 02/11/2007 02/11/2007 Right VATS upper lobectomy 01/20 Overview: 08/21/13: Right. NSCLC. Neg EBUS staging of mediastinum. 09/28/2013 .1. Mediastinoscopy, Right VATS upper lobectomy,. Mediastinal lymphadenectomy.,Marcaine chest wall block. Chest tube removed, tree to bulb with increased drainage. Plan: - continue tree to bulb - continue oral pain medication - Heart healthy diet/DM diet - [place]charge 10[place] documented as of this encounter (statuses as of 05/14/2022) [facility] Narrative* Problem Noted Date Resolved Date Malignant neoplasm of upper lobe of right lung 1 05/16/2014 01/20/2021 Overview: 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 Maria: Adenocarcinoma Stage IB, Refused chemo. Released (01/07/2019) Type II or unspecified type diabetes mellitus without mention of complication, uncontrolled 02/11/2007 03/03/2007 Calculus of kidney 02/11/2007 02/11/2007 Right VATS upper lobectomy 01/20 Overview: 08/21/13: Right. NSCLC. Neg EBUS staging of mediastinum. 09/28/2013 .1. Mediastinoscopy, Right VATS upper lobectomy,. Mediastinal lymphadenectomy.,Marcaine chest wall block. Chest tube removed, tree to bulb with increased drainage. Plan: - continue tree to bulb - continue oral pain medication - Heart healthy diet/DM diet - Discharge 10[place] documented as of this encounter (statuses as of 06/11/2022) [facility] Narrative* Problem Noted Date Resolved Date Malignant neoplasm of upper lobe of right lung 1 05/16/2014 01/20/2021 Overview: 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 Maria: Adenocarcinoma Stage IB, Refused chemo. Released (01/07/2019) Type II or unspecified type diabetes mellitus without mention of complication, uncontrolled 02/11/2007 03/03/2007 Calculus of kidney 02/11/2007 02/11/2007 Right VATS upper lobectomy 01/20 Overview: 08/21/13: Right. NSCLC. Neg EBUS staging of mediastinum. 09/28/2013 .1. Mediastinoscopy, Right VATS upper lobectomy,. Mediastinal lymphadenectomy.,Marcaine chest wall block. Chest tube removed, tree to bulb with increased drainage. Plan: - continue tree to bulb - continue oral pain medication - Heart healthy diet/DM diet - Discharge 10[place] documented as of this encounter (statuses as of 07/03/2022) [facility] Narrative* Problem Noted Date Resolved Date Malignant neoplasm of upper lobe of right lung 1 05/16/2014 01/20/2021 Overview: 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 Maria: Adenocarcinoma Stage IB, Refused chemo. Released (01/07/2019) Type II or unspecified type diabetes mellitus without mention of complication, uncontrolled 02/11/2007 03/03/2007 Calculus of kidney 02/11/2007 02/11/2007 Right VATS upper lobectomy 01/20 Overview: 08/21/13: Right. NSCLC. Neg EBUS staging of mediastinum. 09/28/2013 .1. Mediastinoscopy, Right VATS upper lobectomy,. Mediastinal lymphadenectomy.,Marcaine chest wall block. Chest tube removed, tree to bulb with increased drainage. Plan: - continue tree to bulb - continue oral pain medication - Heart healthy diet/DM diet - Discharge 10[place] documented as of this encounter (statuses as of 08/09/2022) [facility] Narrative* Problem Noted Date Resolved Date Malignant neoplasm of upper lobe of right lung 1 05/16/2014 01/20/2021 Overview: 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 Maria: Adenocarcinoma Stage IB, Refused chemo. Released (01/07/2019) Type II or unspecified type diabetes mellitus without mention of complication, uncontrolled 02/11/2007 03/03/2007 Calculus of kidney 02/11/2007 02/11/2007 Right VATS upper lobectomy 01/20 Overview: 08/21/13: Right. NSCLC. Neg EBUS staging of mediastinum. 09/28/2013 .1. Mediastinoscopy, Right VATS upper lobectomy,. Mediastinal lymphadenectomy.,Marcaine chest wall block. Chest tube removed, tree to bulb with increased drainage. Plan: - continue tree to bulb - continue oral pain medication - Heart healthy diet/DM diet - Discharge 10/01/2013 [place], Saturday10/09/2013 - documented as of this encounter (statuses as of 08/09/2022) [facility] Narrative* Problem Noted Date Resolved Date Malignant neoplasm of upper lobe of right lung 1 05/16/2014 01/20/2021 Overview: 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 Maria: Adenocarcinoma Stage IB, Refused chemo. Released (01/07/2019) Type II or unspecified type diabetes mellitus without mention of complication, uncontrolled 02/11/2007 03/03/2007 Calculus of kidney 02/11/2007 02/11/2007 Right VATS upper lobectomy 01/20 Overview: 08/21/13: Right. NSCLC. Neg EBUS staging of mediastinum. 09/28/2013 .1. Mediastinoscopy, Right VATS upper lobectomy,. Mediastinal lymphadenectomy.,Marcaine chest wall block. Chest tube removed, tree to bulb with increased drainage. Plan: - continue tree to bulb - continue oral pain medication - Heart healthy diet/DM diet - Discharge 10[place] documented as of this encounter (statuses as of 08/24/2022) [facility] Narrative* Problem Noted Date Resolved Date Malignant neoplasm of upper lobe of right lung 1 05/16/2014 01/20/2021 Overview: 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 Maria: Adenocarcinoma Stage IB, Refused chemo. Released (01/07/2019) Type II or unspecified type diabetes mellitus without mention of complication, uncontrolled 02/11/2007 03/03/2007 Calculus of kidney 02/11/2007 02/11/2007 Right VATS upper lobectomy 01/20 Overview: 08/21/13: Right. NSCLC. Neg EBUS staging of mediastinum. 09/28/2013 .1. Mediastinoscopy, Right VATS upper lobectomy,. Mediastinal lymphadenectomy.,Marcaine chest wall block. Chest tube removed, tree to bulb with increased drainage. Plan: - continue tree to bulb - continue oral pain medication - Heart healthy diet/DM diet - [place]charge [place] [facility] [place] [facility] documented as of this encounter (statuses as of 09/25/2022) [facility] Narrative* Problem Noted Date Diagnosed Date Resolved Date Malignant neoplasm of upper lobe of right lung 03/16/2015 01/20/2021 Overview: 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 Maria: Adenocarcinoma Stage IB, Refused chemo. Released (01/07/2019) Type II or unspecified type diabetes mellitus without mention of complication, uncontrolled 02/11/2007 03/03/2007 Calculus of kidney 02/11/2007 7 Right VATS upper lobectomy 0 01/20/2021 Overview: 08/21/13: Right. NSCLC. Neg EBUS staging of mediastinum. 09/28/2013 .1. Mediastinoscopy, Right VATS upper lobectomy,. Mediastinal lymphadenectomy.,Marcaine chest wall block. Chest tube removed, tree to bulb with increased drainage. Plan: - continue tree to bulb - continue oral pain medication - Heart healthy diet/DM diet - Discharge 10[place] documented as of this encounter (statuses as of 12/03/2022) [facility] Narrative* Problem Noted Date Diagnosed Date Resolved Date Malignant neoplasm of upper lobe of right lung 03/16/2015 01/20/2021 Overview: Dx 2014: Was Seeing Dr. Maria: Adenocarcinoma Stage IB, Refused chemo. Released (01/07/2019) Type II or unspecified type diabetes mellitus without mention of complication, uncontrolled 02/11/2007 03/03/2007 Calculus of kidney 02/11/2007 7 Right VATS upper lobectomy 0 01/20/2021 Overview: 08/21/13: Right. NSCLC. Neg EBUS staging of mediastinum. 09/28/2013 .1. Mediastinoscopy, Right VATS upper lobectomy,. Mediastinal lymphadenectomy.,Marcaine chest wall block. Chest tube removed, tree to bulb with increased drainage. Plan: - continue tree to bulb - continue oral pain medication - Heart healthy diet/DM diet - [place] [facility] [place] [facility] documented as of this encounter (statuses as of 12/28/2022) [facility] Narrative* Problem Noted Date Diagnosed Date Resolved Date Malignant neoplasm of upper lobe of right lung 03/16/2015 01/20/2021 Overview: 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 Maria: Adenocarcinoma Stage IB, Refused chemo. Released (01/07/2019) Type II or unspecified type diabetes mellitus without mention of complication, uncontrolled 02/11/2007 03/03/2007 Calculus of kidney 02/11/2007 7 Right VATS upper lobectomy 0 01/20/2021 Overview: 08/21/13: Right. NSCLC. Neg EBUS staging of mediastinum. 09/28/2013 .1. Mediastinoscopy, Right VATS upper lobectomy,. Mediastinal lymphadenectomy.,Marcaine chest wall block. Chest tube removed, tree to bulb with increased drainage. Plan: - continue tree to bulb - continue oral pain medication - Heart healthy diet/DM diet - [place]charge 10[place]01[place] [place] [facility] documented as of this encounter (statuses as of 02/26/2023) [facility] Narrative* Problem Noted Date Diagnosed Date Resolved Date Malignant neoplasm of upper lobe of right lung 03/16/2015 01/20/2021 Overview: 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 Maria: Adenocarcinoma Stage IB, Refused chemo. Released (01/07/2019) Type II or unspecified type diabetes mellitus without mention of complication, uncontrolled 02/11/2007 03/03/2007 Calculus of kidney 02/11/2007 7 Right VATS upper lobectomy 0 01/20/2021 Overview: 08/21/13: Right. NSCLC. Neg EBUS staging of mediastinum. 09/28/2013 .1. Mediastinoscopy, Right VATS upper lobectomy,. Mediastinal lymphadenectomy.,Marcaine chest wall block. Chest tube removed, tree to bulb with increased drainage. Plan: - continue tree to bulb - continue oral pain medication - Heart healthy diet/DM diet - Discharge 10[place]01[place] [facility] [place] [facility] documented as of this encounter (statuses as of 02/28/2023) [facility] Narrative* Problem Noted Date Diagnosed Date Resolved Date Malignant neoplasm of upper lobe of right lung 03/16/2015 01/20/2021 Overview: 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 Maria: Adenocarcinoma Stage IB, Refused chemo. Released (01/07/2019) Type II or unspecified type diabetes mellitus without mention of complication, uncontrolled 02/11/2007 03/03/2007 Calculus of kidney 02/11/2007 7 Right VATS upper lobectomy 0 01/20/2021 Overview: 08/21/13: Right. NSCLC. Neg EBUS staging of mediastinum. 09/28/2013 .1. Mediastinoscopy, Right VATS upper lobectomy,. Mediastinal lymphadenectomy.,Marcaine chest wall block. Chest tube removed, tree to bulb with increased drainage. Plan: - continue tree to bulb - continue oral pain medication - Heart healthy diet/DM diet - [place] documented as of this encounter (statuses as of 04/10/2023) [facility] Narrative* Problem Noted Date Diagnosed Date Resolved Date Malignant neoplasm of upper lobe of right lung 03/16/2015 01/20/2021 Overview: 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 Maria: Adenocarcinoma Stage IB, Refused chemo. Released (01/07/2019) Type II or unspecified type diabetes mellitus without mention of complication, uncontrolled 02/11/2007 03/03/2007 Calculus of kidney 02/11/2007 7 Right VATS upper lobectomy 0 01/20/2021 Overview: 08/21/13: Right. NSCLC. Neg EBUS staging of mediastinum. 09/28/2013 .1. Mediastinoscopy, Right VATS upper lobectomy,. Mediastinal lymphadenectomy.,Marcaine chest wall block. Chest tube removed, tree to bulb with increased drainage. Plan: - continue tree to bulb - continue oral pain medication - Heart healthy diet/DM diet - [place] [facility] documented as of this encounter (statuses as of 04/10/2023) [facility]11-[facility] History of Past illness Narrative* Problem Noted Date Diagnosed Date Resolved Date Malignant neoplasm of upper lobe of right lung 03/16/2015 01/20/2021 Overview: 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 Maria: Adenocarcinoma Stage IB, Refused chemo. Released (01/07/2019) Type II or unspecified type diabetes mellitus without mention of complication, uncontrolled 02/11/2007 03/03/2007 Calculus of kidney 02/11/2007 7 Right VATS upper lobectomy 0 01/20/2021 Overview: 08/21/13: Right. NSCLC. Neg EBUS staging of mediastinum. 09/28/2013 .1. Mediastinoscopy, Right VATS upper lobectomy,. Mediastinal lymphadenectomy.,Marcaine chest wall block. Chest tube removed, tree to bulb with increased drainage. Plan: - continue tree to bulb - continue oral pain medication - Heart healthy diet/DM diet - Discharge 10[place]01[facility] documented as of this encounter (statuses as of 04/11/2023) [facility] History of Past illness Narrative* Problem Noted Date Diagnosed Date Resolved Date Malignant neoplasm of upper lobe of right lung 03/16/2015 01/20/2021 Overview: 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 Maria: Adenocarcinoma Stage IB, Refused chemo. Released (01/07/2019) Type II or unspecified type diabetes mellitus without mention of complication, uncontrolled 02/11/2007 03/03/2007 Calculus of kidney 02/11/2007 7 Right VATS upper lobectomy 0 01/20/2021 Overview: 08/21/13: Right. NSCLC. Neg EBUS staging of mediastinum. 09/28/2013 .1. Mediastinoscopy, Right VATS upper lobectomy,. Mediastinal lymphadenectomy.,Marcaine chest wall block. Chest tube removed, tree to bulb with increased drainage. Plan: - continue tree to bulb - continue oral pain medication - Heart healthy diet/DM diet - [place]charge 10[place]01[place]2013 [place] - documented as of this encounter (statuses as of 04/12/2023) [facility] History of Past illness Narrative* Problem Noted Date Diagnosed Date Resolved Date Malignant neoplasm of upper lobe of right lung 03/16/2015 01/20/2021 Overview: 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 Maria: Adenocarcinoma Stage IB, Refused chemo. Released (01/07/2019) Type II or unspecified type diabetes mellitus without mention of complication, uncontrolled 02/11/2007 03/03/2007 Calculus of kidney 02/11/2007 7 Right VATS upper lobectomy 0 01/20/2021 Overview: 08/21/13: Right. NSCLC. Neg EBUS staging of mediastinum. 09/28/2013 .1. Mediastinoscopy, Right VATS upper lobectomy,. Mediastinal lymphadenectomy.,Marcaine chest wall block. Chest tube removed, tree to bulb with increased drainage. Plan: - continue tree to bulb - continue oral pain medication - Heart healthy diet/DM diet - Discharge 10/01/2013 [place] - documented as of this encounter (statuses as of 07/15/2023) [facility] History of Past illness Narrative* Problem Noted Date Diagnosed Date Resolved Date Malignant neoplasm of upper lobe of right lung 03/16/2015 01/20/2021 Overview: 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 Maria: Adenocarcinoma Stage IB, Refused chemo. Released (01/07/2019) Type II or unspecified type diabetes mellitus without mention of complication, uncontrolled 02/11/2007 03/03/2007 Calculus of kidney 02/11/2007 7 Right VATS upper lobectomy 0 01/20/2021 Overview: 08/21/13: Right. NSCLC. Neg EBUS staging of mediastinum. 09/28/2013 .1. Mediastinoscopy, Right VATS upper lobectomy,. Mediastinal lymphadenectomy.,Marcaine chest wall block. Chest tube removed, tree to bulb with increased drainage. Plan: - continue tree to bulb - continue oral pain medication - Heart healthy diet/DM diet - Discharge 10/01/2013 follow-up in [place]/09/2013 - documented as of this encounter (statuses as of 08/28/2023) [facility] History of Past illness Narrative* Problem Noted Date Diagnosed Date Resolved Date Malignant neoplasm of upper lobe of right lung 03/16/2015 01/20/2021 Overview: 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 Maria: Adenocarcinoma Stage IB, Refused chemo. Released (01/07/2019) Type II or unspecified type diabetes mellitus without mention of complication, uncontrolled 02/11/2007 03/03/2007 Calculus of kidney 02/11/2007 7 Right VATS upper lobectomy 0 01/20/2021 Overview: 08/21/13: Right. NSCLC. Neg EBUS staging of mediastinum. 09/28/2013 .1. Mediastinoscopy, Right VATS upper lobectomy,. Mediastinal lymphadenectomy.,Marcaine chest wall block. Chest tube removed, tree to bulb with increased drainage. Plan: - continue tree to bulb - continue oral pain medication - Heart healthy diet/DM diet - [place] documented as of this encounter (statuses as of 08/29/2023) [facility] History of Past illness Narrative* Problem Noted Date Diagnosed Date Resolved Date Malignant neoplasm of upper lobe of right lung 03/16/2015 01/20/2021 Overview: 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 Maria: Adenocarcinoma Stage IB, Refused chemo. Released (01/07/2019) Type II or unspecified type diabetes mellitus without mention of complication, uncontrolled 02/11/2007 03/03/2007 Calculus of kidney 02/11/2007 7 Right VATS upper lobectomy 0 01/20/2021 Overview: 08/21/13: Right. NSCLC. Neg EBUS staging of mediastinum. 09/28/2013 .1. Mediastinoscopy, Right VATS upper lobectomy,. Mediastinal lymphadenectomy.,Marcaine chest wall block. Chest tube removed, tree to bulb with increased drainage. Plan: - continue tree to bulb - continue oral pain medication - Heart healthy diet/DM diet - [place] documented as of this encounter (statuses as of 09/02/2023) [facility] Denilson Reodica [facility] Note Date/Time August 19, 2024 12:0 4pm [facility] Medical Records Department [address] [place] [address] Emergency Department Summary 08/19/24 MR#: [id number] Acct: [id number] Name: SANTOS MOREL Rep #:[id number] : 1940 84 From: Denilson Foley MD PCP: Dr. Yvan Rahman MD Status:ADM IN Location: ICU ICU01-1 HPI History of Present Illness Chief Complaint: Weakness Narrative Narrative: 84-year-old male past medical history of diabetes presents via EMS with generalized weakness, nausea and vomiting. It was reported that he had a fever/elevated temperature at home. He felt sick to his stomach, and vomited 3-4 times at home. He was unable to sit up completely. He relates history that he has been feeling tired and fatigued as well. He denies any chest pain or shortness of breath, no cough, no problems with urination. He is not having diarrhea. He denies any abdominal pain. It was reported by EMS that he was hypoxic as well. He had a pulse ox in the 80s upon their arrival. [facility] Medical History (Updated 08/19/24 @ 10:51 by Denilson Foley MD) HTN (hypertension) Lung cancer Diabetes Home Medications ?Medication ?Instructions ?Recorded ?Last Taken ?Type glimepiride 2 mg tablet 2 mg PO BID 07/22/13 5 History aspirin 81 mg tablet,delayed 81 mg PO DAILY 08/19/24 0 08/18/24 History release (Adult Aspirin Regimen) cholecalciferol (vitamin D3) 50 50 mcg PO DAILY 08/18/24 History mcg (2,000 unit) capsule levothyroxine 175 mcg tablet 175 mcg PO DAILY 08/19/24 08/18/24 History (Synthroid) losartan 100 mg tablet 100 mg PO DAILY 08/19/2401/04 History omeprazole 20 mg capsule,delayed 20 mg PO DAILY 08/18/24 History release pioglitazone 30 mg tablet 30 mg PO DAILY 08/19/2401/04 History pravastatin 40 mg tablet 40 mg PO DAILY 08/19/2401/04 History sitagliptin phos 100 mg-metformin 1 tab PO DAILY 08/1908/18/24 History ER 1,000 mg tablet,extend rel 24h mp (Janumet XR) tamsulosin 0.4 mg capsule 0.4 mg PO BID 08/19/2408/18 History Allergy/AdvReac Type Severity Reaction Status Date / Time Penicillins Allergy Swelling Verified 08/19/24 08:58 Surgical History (Updated 08/19/24 @ 09:18 by Luis Armando King) S/P lobectomy of lung Social History Smoking Status: Never smoker ROS ROS ED ROS Narrative Afebrile. Vital signs noted. Nontoxic-appearing. Intermittent drowsiness noted on examination. Cardiovascular examination reveals mild tachycardia. Lungs are clear to auscultation bilaterally with diminished sounds at the bilateral bases. Abdomen soft, nontender, no guarding or rebound. Positive bowel sounds. Neurological examination shows him to be awake and interactive. Stated year was 2023. Intermittently fatigued. No pedal edema bilaterally. Moves all extremities. EXAM Physical Exam Const Vital Signs: 08/19/24 08:58 08/19/24 09:08 08/19/24 09:08 Temperature 98.2 F 98.6 F Temperature Source Oral Oral Pulse Rate 130 H 130 H Respiratory Rate 18 28 H Respiratory Effort Respiratory Pattern Blood Pressure 174/86 H 174/86 H Blood Pressure Mean 115 115 Pulse Ox 91 92 Oxygen Delivery Method Room Air Room Air Nasal Cannula Oxygen Flow Rate (L/min) 2 08/19/24 09:17 08/19/24 10:05 08/19/24 10:28 Temperature 102.1 F H 102.3 F H Temperature Source Core Core Pulse Rate 116 H 115 H Respiratory Rate 28 H 30 H Respiratory Effort Normal Respiratory Pattern Normal Blood Pressure 145/64 H 123/70 H Blood Pressure Mean 91 87 Pulse Ox 93 94 Oxygen Delivery Method Nasal Cannula Nasal Cannula Oxygen Flow Rate (L/min) 2 2 Sepsis Attestation Sepsis Alert: Yes Sepsis Attestation: Agree w/Sepsis Date exam was performed: 08/19/24 Time exam was performed: 10:05 Possible Source of Sepsis: Pulmonary Sepsis Organ Dysfunction Criteria Present: SBP decrease of more than 40 mmHg andNew/Unexplained change in mental status Fluid Resuscitation Fluid resuscitation indicated?: Yes Fluid Resuscitation ordered: 30 ml/kg fluid bolus ordered Amount of fluid ordered: 2,750 MDM MDM MDM Narrative Medical decision making narrative: Given patient's generalized weakness, differential diagnosis includes dehydration versus intravascular volume depletion. Given his tachycardia, concern would also be for new onset atrial fibrillation versus sinus tachycardia. With his reported hypoxia, he may have pneumonia versus pneumothorax. While he is not hypotensive, sepsis workup was pursued given his reported fever but he is currently afebrile. In discussing with the patient's , she states that yesterday patient was complaining of urinary frequency. She called EMS this morning because at 4 AM he started having nausea and vomiting and was in the bathroom for a while. He had an episode of diarrhea as well and she had to call her son to try and get him to the bathroom. He was so weak he could barely stand and ambulate, and he seemed more confused. She states that he takes Januvia and oral medication for his diabetes. Per RN, [id number] glucose is elevated at 375. I added a betahydroxybutyrate, and bladder scan was also performed. He was having urinary retention so Suárez catheter was inserted. On my individual interpretation of his 1 view chest x-ray, there is perihilar fullness and questionable infiltrate in the left lower lobe. He has chronicallyelevated right hemidiaphragm when compared to previous chest x-ray. I reviewed the radiology report which comments more on the developing left lower lobe infiltrate. Given his hypoxia, I feel he may have more of a pneumonia. EKG wasobtained and interpreted by myself independently as sinus tachycardia at 127 bpmwith a right bundle branch block, no acute ST changes/STEMI. When compared to previous EKG, he has had a right bundle branch block even in 2014. I reviewed his laboratory work and he has elevated white count of 14.5 with hemoglobin 15.9, hematocrit 46.5, platelet count 220. INR normal at 1.1 with a PTT 25.3. CMP is remarkable for a chloride of 97 with CO2 low at 15.5 and aniongap elevated 23, BUN of 22 and creatinine 1.18. LFTs show AST slightly elevatedat 41 which I think is nonspecific, normal ALT and normal alk phos. Lactic acidis elevated at 6.3. Glucose is elevated at 435. I obtained acetone level and it is also elevated at 1.6. Patient was started on IV fluids. I deferred insulin to the hospitalist. Given his lactic acidosis, and now with fever of 102.3, tachycardia, sepsis alert was instituted. As he may have more of an aspiration pneumonia, given his penicillin allergy of swelling he was started onlevofloxacin and Flagyl intravenously. I discussed the patient with Dr. Yadira Pruett for admission to the ICU. Critical care time 31 minutes. Disposition is admit to the ICU in guarded condition. History & Record Review Discussion w/independent historian: Patient and Family Lab Data Attestation: I reviewed the patient's lab results. Labs: Laboratory Results - last 24 hr 08/19/24 08/19/24 08/19/24 08:42 09:16 09:35 WBC 14.5 H RBC 5.55 Hgb 15.9 Hct 46.5 MCV 83.8 MCH 28.6 MCHC 34.2 RDW Std Deviation 38.4 RDW Coeff of Yesenia 12.6 Plt Count 220 MPV 10.0 Immature Gran % (Auto) 0.500 Neut % (Auto) 89.9 H Lymph % (Auto) 6.2 L Coamo % (Auto) 3.0 Eos % (Auto) 0.1 Baso % (Auto) 0.3 Absolute Neuts (auto) 13.1 H Absolute Lymphs (auto) 0.90 Nucleated RBC % 0 PT 14.7 INR 1.1 APTT 25.3 Sodium 135 Potassium 4.1 Chloride 97 L Carbon Dioxide 15.5 L Anion Gap 23 H BUN 22 H Creatinine 1.18 Estim Creat Clear Calc 54.81 Est GFR (MDRD) Non-Af 62 BUN/Creatinine Ratio 18.8 Glucose 437 H Lactic Acid Calcium 8.8 Total Bilirubin 1.11 AST 41 H ALT 36 Alkaline Phosphatase 71 Total Protein 7.4 Albumin 4.2 Globulin 3.2 Albumin/Globulin Ratio 1.3 Lipase 28 b-Hydroxybutyric mmol/L 1.6 Urine Color Straw Urine Clarity Clear Urine pH 5.0 Ur Specific Howes 1.015 Urine Protein 30 H Urine Glucose (UA) 1000 H Urine Ketones 50 H Urine Occult Blood 10 H Urine Nitrite Negative Urine Bilirubin Negative Urine Urobilinogen Normal Ur Leukocyte Esterase Negative Urine RBC 0-5 SEEN Urine WBC 0-5 SEEN Ur Squamous Epith Cells 0 SEEN Urine Bacteria 0 SEEN Urine Mucus 0 SEEN POC Glucose 375 H 08/19/24 09:37 WBC RBC Hgb Hct MCV MCH MCHC RDW Std Deviation RDW Coeff of Yesenia Plt Count MPV Immature Gran % (Auto) Neut % (Auto) Lymph % (Auto) Coamo % (Auto) Eos % (Auto) Baso % (Auto) Absolute Neuts (auto) Absolute Lymphs (auto) Nucleated RBC % PT INR APTT Sodium Potassium Chloride Carbon Dioxide Anion Gap BUN Creatinine Estim Creat Clear Calc Est GFR (MDRD) Non-Af BUN/Creatinine Ratio Glucose Lactic Acid 6.3 H* Calcium Total Bilirubin AST ALT Alkaline Phosphatase Total Protein Albumin Globulin Albumin/Globulin Ratio Lipase b-Hydroxybutyric mmol/L Urine Color Urine Clarity Urine pH Ur Specific Howes Urine Protein Urine Glucose (UA) Urine Ketones Urine Occult Blood Urine Nitrite Urine Bilirubin Urine Urobilinogen Ur Leukocyte Esterase Urine RBC Urine WBC Ur Squamous Epith Cells Urine Bacteria Urine Mucus POC Glucose Radiography Chest X-Ray - ED: 1 View and Read by ED Physician Diagnostic Testing: Clinical Impression(s) from Imaging Studies Chest X-Ray 08/19/24 09:03 IMPRESSION: Prominent lung markings at the left lung base. Can not exclude a developing infiltrate. Elevation of the right hemidiaphragm. Reading Location: [place] [address] Management Discussion w/another healthcare provider: Hospitalist Critical Care Time Critical Care Time: Yes Critical care time (excluding procedures): 30-74 minutes (31), Including time spent:, Discussing w/Patient &/or Family/Patient Admitting Representative, Discussing w/Consultants, Arranging Admission or Transfer and Performing Direct Patient Care at Bedside Discharge Plan Dx/Rx/DC Orders Clinical Impression: Pneumonia, Sepsis, Mental status alteration, Urinary retention, Hyperglycemia Disposition Disposition: Acute Care Hospital [facility] What to do if you have Problems For any increased pain, shortness of breath, bleeding, nausea or vomiting, chestpain, or any unexpected problems, contact your Primary Care Provider. Call [facility] ([phone]) or report to the closest Emergency Room. Call 911 if necessary. 08/19/24 1204 <Electronically signed by Denilson Foley MD> Cosigner Signature (if applicable): CC: Dr. Yvan Rahman MD ~ Signed [facility] Work Phone: Discharge summary Author Yadira Pruett [facility] Note Date/Time August 23, 2024 12: 34pm [facility] Medical Records Department [address] [place] [address] Instructions for Home/Discharge Instructions 08/23/24 1205 MR#: [id number] Acct: [id number] Name: SANTOS MOREL Rep #:[id number] : 1940 84 From: Yadira Pruett MD PCP: Dr. Yvan Rahman MD Status:ADM IN Discharge Instructions Diet Discharge Diet: 1999 Calorie Control Diet and Carb Control Diet DC O2, CPAP, BIPAP needs Home O2 Discharge instructions: No Dressing / Incision Discharge Activity: - (Increase activity as tolerated) Follow Up Care Test Results: Test results from this visit will be discussed in further detail at your follow- up appointment, if applicable. Discharge Plan Admission Admit Date/Time: 08/19/24 11:22 Primary Reason for Your Visit: Confusion, altered mental status Attending Provider: Yadira Pruett Primary Care Provider: Yvan Rahman Instructions Patient Instructions: Understanding Norovirus, ED Fall Prevention Additional Instructions / Restrictions: DISCHARGE INSTRUCTIONS PLEASE READ *Please take this with you to your next doctors appointment* -Your Synthroid has been decreased to 150 mcg daily given your thyroid levels onadmission, and is very possible this may need further adjustments through your prescribing physician but at this time you will be discharged on 150 mcg of Synthroid, new prescription was sent to preferred pharmacy on file. Please follow-up closely with your primary care physician as they will need to recheck labs in the future for further adjustments - would recommend restarting your losartan on 08/26 - resume your home diabetes medications. Will be important that you follow-up with your primary care physician closely for monitoring and any further adjustments needed - You will continue your home tamsulosin, if you begin to have any trouble urinating in the future please contact your PCP/prescribing physician or proceedto the emergency department if you have any emergent needs -Please call your primary care provider's office upon discharge to schedule a hospital follow up within 1 week. -For any concerning signs or symptoms please call 911 or proceed to the nearest emergency department Discharge Orders/Prescriptions Prescriptions: New levothyroxine 150 mcg Tablet 150 mcg PO DAILY 30 Days Qty: 30 0RF Continued glimepiride 2 MG tablet 2 mg PO BID pravastatin 40 mg tablet 40 mg PO DAILY tamsulosin 0.4 mg capsule 0.4 mg PO BID pioglitazone 30 mg tablet 30 mg PO DAILY Janumet XR 100-1,000 mg tablet, ER multiphase 24 hr 1 tab PO DAILY aspirin [Adult Aspirin Regimen] 81 mg tablet,delayed release (DR/EC) 81 mg PO DAILY omeprazole 20 mg capsule,delayed release(DR/EC) 20 mg PO DAILY cholecalciferol (vitamin D3) 50 mcg (2,000 unit) capsule 50 mcg PO DAILY Held losartan 100 mg tablet 100 mg PO DAILY Hold Instructions: Resume on 08/26/24. Discontinued levothyroxine [Synthroid] 175 mcg tablet 175 mcg PO DAILY Referrals / Follow Up: Yvan Rahman MD [Primary Care Provider] - Within 1 Week Disposition Disposition (needs filled in before D/C Order can be placed): Home, Self Care 08/23/24 1234<Electronically signed by Yadira Pruett MD>Yadira Pruett MD CC: Dr. 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 [facility]* Diagnosis Medicare annual wellness visit, subsequent- Primary Routine general medical examination at a health care facility Controlled type 2 diabetes mellitus without complication, without long-term current use of insulin (HCC) Diabetic eye exam (HCC) Type II or unspecified type diabetes mellitus without mention of complication, not stated as uncontrolled Essential hypertension Unspecified essential hypertension Mixed hyperlipidemia Gastroesophageal reflux disease without esophagitis Esophageal reflux 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 Hypomagnesemia Disorders of magnesium metabolism History of lung cancer Personal history of malignant neoplasm of bronchus and lung Benign non-nodular prostatic hyperplasia with lower urinary tract symptoms Elevated prostate specific antigen (PSA) Advance directive discussed with patient Other specified counseling Bilateral carotid artery stenosis Occlusion and stenosis of carotid artery without mention of cerebral infarction [facility]* Diagnosis Diarrhea, unspecified type [facility] Diagnosis 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 [facility] Diagnosis Controlled type 2 diabetes mellitus without complication, without long-term current use of insulin (HCC)- Primary Diabetic eye exam (HCC) Type II or unspecified type diabetes mellitus without mention of complication, not stated as uncontrolled Essential hypertension Unspecified essential hypertension Mixed hyperlipidemia Post-surgical hypothyroidism Postsurgical hypothyroidism Bilateral carotid artery stenosis Occlusion and stenosis of carotid artery without mention of cerebral infarction Gastroesophageal reflux disease without esophagitis Esophageal reflux 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 History of lung cancer Personal history of malignant neoplasm of bronchus and lung Hypomagnesemia Disorders of magnesium metabolism Chronic left shoulder pain Pain in joint, shoulder region Medication management Encounter for long-term (current) use of other medications Blisters of multiple sites Other, multiple, and unspecified sites, blister, without mention of infection [facility]* Diagnosis Flu-like symptoms- Primary Other general symptoms Tachycardia Tachycardia, unspecified Suspected COVID-19 virus infection Proteinuria, unspecified type Fever, unspecified fever cause Diarrhea, unspecified type [facility]* Diagnosis Campylobacter diarrhea- Primary Intestinal infection due to campylobacter [facility] Diagnosis Viral enteritis- Primary Intestinal infection due to other organism, not elsewhere classified [facility] Diagnosis 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 [facility] Diagnosis Diarrhea, unspecified type [facility] Diagnosis 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 [facility] Diagnosis Essential hypertension- Primary Unspecified essential hypertension 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 Mixed hyperlipidemia Benign non-nodular prostatic hyperplasia with lower urinary tract symptoms Controlled type 2 diabetes mellitus without complication, without long-term current use of insulin (HCC) Post-surgical hypothyroidism Postsurgical hypothyroidism Hypomagnesemia Disorders of magnesium metabolism Medication management Encounter for long-term (current) use of other medications [facility] Diagnosis Fever, unspecified fever cause [facility] Diagnosis Chronic left shoulder pain Pain in joint, shoulder region documented in this [facility] Diagnosis Primary thyroid papillary carcinoma (HCC)- Primary Malignant neoplasm of thyroid gland Controlled type 2 diabetes mellitus without complication, without long-term current use of insulin (HCC) Mixed hyperlipidemia Essential hypertension Unspecified essential hypertension Gastroesophageal reflux disease without esophagitis Esophageal reflux Post-surgical hypothyroidism Postsurgical hypothyroidism Bilateral carotid artery stenosis Occlusion and stenosis of carotid artery without mention of cerebral infarction Hypomagnesemia Disorders of magnesium metabolism Medication management Encounter for long-term (current) use of other medications Elevated prostate specific antigen (PSA) documented in this encounter [facility]* Diagnosis Medicare annual wellness visit, subsequent- Primary Routine general medical examination at a health care facility Controlled type 2 diabetes mellitus without complication, without long-term current use of insulin ([facility]) Diabetic eye exam ([facility]) Type II or unspecified type diabetes mellitus without mention of complication, not stated as uncontrolled Essential hypertension Unspecified essential hypertension Mixed hyperlipidemia 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 Gastroesophageal reflux disease without esophagitis Esophageal reflux Bilateral carotid artery stenosis Occlusion and stenosis of carotid artery without mention of cerebral infarction Hypomagnesemia Disorders of magnesium metabolism Benign non-nodular prostatic hyperplasia with lower urinary tract symptoms Advance directive discussed with patient Other specified counseling Screening for depression Encounter for screening examination for other mental health and behavioral disorders Resting tremor Abnormal involuntary movements Bradykinesia Abnormal involuntary movements [facility] Diagnosis Paresthesia of skin- Primary Disturbance of skin sensation Neuropathy Mononeuritis of unspecified site Shuffling gait Abnormality of gait documented in this encounter [facility] note* Diagnosis Onset Date Resolution Status Admit Date Hyperglycemia acute August 19, 2024 11:22am Mental status alteration acute August 19, 2024 11:22am Pneumonia acute August 19 11:22am Sepsis acute August 19 11:22am Urinary retention acute August 192024 11:22am [facility] Work Phone: Evaluation note* Diagnosis Hospital discharge follow-up- Primary Other follow-up examination Acute cough Controlled type 2 diabetes mellitus without complication, without long-term current use of insulin ([facility]) Norovirus Enteritis due to Reynolds virus Acute cough Hospital discharge follow-up Other follow-up examination [facility] Diagnosis Acute cough Hospital discharge follow-up Other follow-up examination [facility] Diagnosis Acute cough- Primary [facility] Diagnosis Reynolds virus- Primary Enteritis due to Reynolds virus Sepsis without acute organ dysfunction, due to unspecified organism (HCC) Post viral debility Debility, unspecified Weakness acquired in ICU 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 Hypomagnesemia Disorders of magnesium metabolism Abnormal chest x-ray Other nonspecific abnormal finding of lung field documented in this encounter [facility]* Diagnosis Reynolds virus- Primary Enteritis due to Reynolds virus Sepsis without acute organ dysfunction, due to unspecified organism (HCC) Post viral debility Debility, unspecified Weakness acquired in ICU [facility] Diagnosis Reynolds virus- Primary Enteritis due to Reynolds virus Post viral debility Debility, unspecified Weakness acquired in ICU Sepsis without acute organ dysfunction, due to unspecified organism (HCC) [facility]* Diagnosis Reynolds virus- Primary Enteritis due to Reynolds virus NAIK (dyspnea on exertion) Other dyspnea and respiratory abnormality Decreased stamina Other malaise and fatigue Abnormal chest x-ray Other nonspecific abnormal finding of lung field Palpitations [facility] Diagnosis Acute cough [facility]* Diagnosis Diarrhea, unspecified type [facility]* Diagnosis NAIK (dyspnea on exertion) Other dyspnea and respiratory abnormality Decreased stamina Other malaise and fatigue [facility]* Diagnosis Abnormal PFTs- Primary Nonspecific abnormal results of pulmonary system function study documented [facility] this encounter [facility]* Diagnosis SVT (supraventricular tachycardia) (HCC)- Primary Other specified cardiac dysrhythmias V-tach (HCC) Paroxysmal ventricular tachycardia [facility]* Diagnosis Obstructive lung disease (HCC)- Primary Chronic airway obstruction, not elsewhere classified History of lung cancer Personal history of malignant neoplasm of bronchus and lung documented in this encounter [facility]* Diagnosis 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 documented in this encounter [facility] noteNo assessment information availableBlRady [facility] Work Phone: Evaluation note* Diagnosis Controlled type 2 diabetes mellitus without complication, without long-term current use of insulin (HCC)- Primary Diabetic eye exam (HCC) Type II or unspecified type diabetes mellitus without mention of complication, not stated as uncontrolled Essential hypertension Unspecified essential hypertension Mixed hyperlipidemia Post-surgical hypothyroidism Postsurgical hypothyroidism Gastroesophageal reflux disease without esophagitis Esophageal reflux Bilateral carotid artery stenosis Occlusion and stenosis of carotid artery without mention of cerebral infarction 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 SVT (supraventricular tachycardia) (HCC) Other specified cardiac dysrhythmias V-tach (HCC) Paroxysmal ventricular tachycardia Hypomagnesemia Disorders of magnesium metabolism Obstructive lung disease (HCC) Chronic airway obstruction, not elsewhere classified Medication management Encounter for long-term (current) use of other medications documented [facility] this encounter [facility] Author Yadira Pruett [facility] Note Date/Time August 19, 2024 11:4 7am [facility] Medical Records Department [address] [place] [id number] H&P Exam - Hospitalist 08/19/24 1122 MR#: [id number] Acct: [id number] Name: SANTOS MOREL Rep #:[id number] : 1940 84 From: Yadira Pruett MD PCP: Dr. Yvan Rahman MD Status:ADM IN Location: ICU ICU01-1 HPI - General General Date of Admission: 08/19/24 Date of Service: 08/19/24 Chief Complaint: Altered mental status, nausea and vomiting HPI Narrative SANTOS MOREL, is a 84 M with a history of BPH, GERD, hypertension, hypothyroidism, diabetes presented [facility] ED 08/19/24 with nausea, vomiting, weakness and altered mental status. Reportedly he had been inhis usual health the day before but woke up at 4 AM with nausea and vomiting andwas feeling weak, noted he was very confused ultimately prompting her to bring him to the hospital, EMS noted patient was hypoxic to 80s and in the ED patient was tachypneic, tachycardic, and febrile and requiring 2 L of O2. Chestx-ray concerning for pneumonia so patient started on broad-spectrum antibiotics. He was also found to have an elevated lactic acid and was given IV fluids per sepsis protocol and hospitalist contacted for admission. Additionally patient was found to have urinary retention and had Suárez placed. History obtained primarily per report and from as patient is very tired and often will wake up any as somewhat difficult time answering questions though reportedly is more oriented now. Per he had a normal day yesterday and he did not know with her and went to bed completely fine but this a.m. she heard him get up around 4 AM when he had at least 3 episodes of emesis and an episode of diarrhea and given his continued worsening he was brought to the ED. Patient very tired but did wake up and answer questions more appropriately which is improved per . Patient reports he has been having cough but denies any abdominal pain, no more nausea or vomiting, denies being short of breath at present [facility] Medical History (Updated 08/19/24 @ 10:51 by Denilson Foley MD) Diabetes HTN (hypertension) Lung cancer Home Medications ?Medication ?Instructions ?Recorded ?Last Taken ?Type glimepiride 2 mg tablet 2 mg PO BID 07/22/13 5 History aspirin 81 mg tablet,delayed 81 mg PO DAILY 08/19/24 0 08/18/24 History release (Adult Aspirin Regimen) cholecalciferol (vitamin D3) 50 50 mcg PO DAILY 08/18/24 History mcg (2,000 unit) capsule levothyroxine 175 mcg tablet 175 mcg PO DAILY 08/19/24 08/18/24 History (Synthroid) losartan 100 mg tablet 100 mg PO DAILY 08/19/2401/04 History omeprazole 20 mg capsule,delayed 20 mg PO DAILY 08/18/24 History release pioglitazone 30 mg tablet 30 mg PO DAILY 08/19/2401/04 History pravastatin 40 mg tablet 40 mg PO DAILY 08/19/2401/04 History sitagliptin phos 100 mg-metformin 1 tab PO DAILY 08/1908/18/24 History ER 1,000 mg tablet,extend rel 24h mp (Janumet XR) tamsulosin 0.4 mg capsule 0.4 mg PO BID 08/19/2408/18 History Allergy/AdvReac Type Severity Reaction Status Date / Time Penicillins Allergy Swelling Verified 08/19/24 08:58 Surgical History (Updated 08/19/24 @ 09:18 by Luis Armando King) S/P lobectomy of lung Social History Smoking Status: Never smoker ROS ROS Narrative Patient denies any current nausea, vomiting, abdominal pain, no diarrhea since being in the ED, does report cough but no shortness of breath, patient very tired and had difficulty answering further ROS at this time Vital Signs Vital Signs Vital Signs: 08/19/24 08:58 08/19/24 09:08 08/19/24 09:08 Temperature 98.2 F 98.6 F Temperature Source Oral Oral Pulse Rate 130 H 130 H Respiratory Rate 18 28 H Respiratory Effort Respiratory Pattern Blood Pressure 174/86 H 174/86 H Blood Pressure Mean 115 115 Pulse Ox 91 92 Oxygen Delivery Method Room Air Room Air Nasal Cannula Oxygen Flow Rate (L/min) 2 08/19/24 09:17 08/19/24 10:05 08/19/24 10:28 Temperature 102.1 F H 102.3 F H Temperature Source Core Core Pulse Rate 116 H 115 H Respiratory Rate 28 H 30 H Respiratory Effort Normal Respiratory Pattern Normal Blood Pressure 145/64 H 123/70 H Blood Pressure Mean 91 87 Pulse Ox 93 94 Oxygen Delivery Method Nasal Cannula Nasal Cannula Oxygen Flow Rate (L/min) 2 2 Weight Weight: 91.2 kg Body Mass Index (BMI) 28.8 Physical Exam Narrative General: Patient sleeping, did eventually wake up but was very tired, initially said the wrong place but then corrected that he was in the hospital, seemed to answer most questions correctly but mostly tired now HEENT: Atraumatic, normocephalic Eyes: Anicteric, normal conjunctiva, extraocular movements grossly intact Neck: Supple Respiratory: Little bit coarse in the left base, tachypneic Cardiovascular: Sinus tachycardia GI: Soft, nontender, no significant distention without rebound, guarding, rigidity Extremities: Trace lower extremity edema Musculoskeletal: Moving all extremities Neuro: No overt focal neurological deficits Skin: Has some very small petechial looking area around his left wrist and hand after blood pressure cuff inflated and has not worsened Psych: Attempts to be cooperative Results Lab / Micro Data 08/19/24 08:42 08/19/24 08:42 Labs: Laboratory Results - last 24 hr 08/19/24 08:42: WBC 14.5 H, RBC 5.55, Hgb 15.9, Hct 46.5, MCV 83.8, MCH 28.6, MCHC 34.2, RDW Std Deviation 38.4, RDW Coeff of Yesenia 12.6, Plt Count 220, MPV 10.0, Immature Gran % (Auto) 0.500, Neut % (Auto) 89.9 H, Lymph % (Auto) 6.2 L, [place] % (Auto) 3.0, Eos % (Auto) 0.1, Baso % (Auto) 0.3, Absolute Neuts (auto) 13.1 H, Absolute Lymphs (auto) 0.90, Nucleated RBC % 0, PT 14.7, INR 1.1, APTT 25.3, Sodium 135, Potassium 4.1, Chloride 97 L, Carbon Dioxide 15.5 L, Anion Gap23 H, BUN 22 H, Creatinine 1.18, Estim Creat Clear Calc 54.81, Est GFR (MDRD) Non-Af 62, BUN/Creatinine Ratio 18.8, Glucose 437 H, Calcium 8.8, Total Bilirubin 1.11, AST 41 H, ALT 36, Alkaline Phosphatase 71, Total Protein 7.4, Albumin 4.2, Globulin 3.2, Albumin/Globulin Ratio 1.3, Lipase 28, b-Hydroxybutyric mmol/L 1.6 08/19/24 09:16: POC Glucose 375 H 08/19/24 09:35: Urine Color Straw, Urine Clarity Clear, Urine pH 5.0, Ur Specific Howes 1.015, Urine Protein 30 H, Urine Glucose (UA) 1000 H, Urine Ketones 50 H, Urine Occult Blood 10 H, Urine Nitrite Negative, Urine Bilirubin Negative, Urine Urobilinogen Normal, Ur Leukocyte Esterase Negative, Urine RBC 0-5 SEEN, Urine WBC 0-5 SEEN, Ur Squamous Epith Cells 0 SEEN, Urine Bacteria 0 SEEN, Urine Mucus 0 SEEN 08/19/24 09:37: Lactic Acid 6.3 H* Micro: Microbiology 08/19/24 09:01 Mucosa - Nose SARS-CoV-2, Influenza & RSV (PCR) - Final Imaging Radiology Impression Chest X-Ray 08/19/24 09:03 IMPRESSION: Prominent lung markings at the left lung base. Can not exclude a developing infiltrate. Elevation of the right hemidiaphragm. Reading Location: [place] [address] Assessment & Plan Assessment/Plan (1) Sepsis: (2) Urinary retention: (3) Pneumonia: (4) Mental status alteration: (5) Hyperglycemia: PLAN: Plan # Sepsis suspect secondary to pneumonia - Patient febrile, tachycardic, tachypneic with chest x-ray suggestive of pneumonia - Additionally elevated white blood cell count and elevated lactic acid, additionally hyperglycemic above baseline -Patient additionally hypoxic when EMS arrived and had acute metabolic encephalopathy secondary to above - IV fluids per sepsis protocol - Patient to be admitted to the ICU with case making machine operator consult - Blood and urine culture sent, you did not appear overtly infectious at this time however - Patient will be covered for pneumonia, given penicillin allergy will avoid penicillins -DuoNebs and as needed albuterol -Sputum culture, COVID negative, respiratory panel ordered -Urine antigens -Mucinex, I/S - Broad-spectrum antibiotics given significance of illness # Hypoxia -suspect secondary to pneumonia and sepsis -Patient presently on 2 L O2, is tachypneic but to some extent suspect this is presently due to his acidosis -Will monitor closely # Type 2 diabetes with significant hyperglycemia -Serum glucose in ED initially 473 with an anion gap of 22 however patient also has a lactic of 6.3 so difficult to tell how much gap has been affected - Does have urine ketones however and does have an increase in beta hydroxybutyrate - Will give dose of IV insulin and schedule every 4 glucose checks with high correction factor, if this does not improve and beta hydroxybutyrate does not improve may need to make n.p.o. and have DKA protocol -Aggressive fluid hydration - Glucose checks -I's and O's -A1c in the a.m. 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 Yvan Rahman MD; Dr. Yadira Pruett MD~ Signed [facility] Work Phone: reason for referral (narrative)* Diagnostic Procedure Only (Routine) - Closed Specialty Diagnoses / Procedures Referred By Contac t Referred To Contact XR IMAGING Diagnoses Chronic left shoulder pain Procedures XR SHOULDER GENERAL 3V OR MORE AP/TRUE AP/OTHER LEFT RADEX SHOULDER COMPLETE MINIMUM 2 VIEWS Yvan Rahman MD [address] [place] [address] [place] [address] Referral ID Status Reason Start Date Expiration Date V isits Requested Visits Authorized [id number] Closed Auto-Generate d Referral 02/25/2023 03/26/2024 1 1 [facility] for referral (narrative)* Diagnostic Procedure Only (Routine) - Closed Specialty Diagnoses / Procedures Referred By Contac t Referred To Contact XR IMAGING Diagnoses Chronic left shoulder pain Procedures XR SHOULDER GENERAL 3V OR MORE AP/TRUE AP/OTHER LEFT RADEX SHOULDER COMPLETE MINIMUM 2 VIEWS Yvan Rahman MD [address] [place] [address] [place] [address] Referral ID Status Reason Start Date Expiration Date V isits Requested Visits Authorized [id number] Closed Auto-Generate d Referral 02/25/2023 03/26/2024 1 1 [facility] for referral (narrative)No reason for referral information [facility] Work Phone: Reqadu for visit Narrative* Diagnostic Procedure Only (Routine) - Closed Specialty Diagnoses / Procedures Referred By Contac t Referred To Contact XR IMAGING Diagnoses Chronic left shoulder pain Procedures XR SHOULDER GENERAL 3V OR MORE AP/TRUE AP/OTHER LEFT RADEX SHOULDER COMPLETE MINIMUM 2 VIEWS Yvan Rahman MD [address] [place] [address] [place] [id number] Referral ID Status Reason Start Date Expiration Date V isits Requested Visits Authorized [id number] Closed Auto-Generate d Referral 02/25/2023 03/26/2024 1 1 [facility] Advance Directives No Advanced Directives Records FoundDocuments on File Type Date Recorded 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 No August 19, 2024 12:40pm Chief Complaint and Reason for Visit Chief Complaint Admit Date SEPSIS SUSPECT SECONDARY TO PNEUMONIA Ap ril 2024 11:22am Reason for Visit Admit Date Hyperglycemia August 19, 2024 11:2 2am Mental status alteration August 19, 2024 11:22am Pneumonia August 19, 2024 11:2 2am Sepsis August 19, 2024 11:2 2am Urinary retention August 19, 2024 11:2 2am Chief Complaint Admit Date SEPSIS SUSPECT SECONDARY TO PNEUMONIA Ap ril 2024 11:22am SEPSIS SUSPECT SECONDARY TO PNEUMONIA Ap ril 2024 1:27pm SEPSIS SUSPECT SECONDARY TO PNEUMONIA Ap ril 2024 6:59am SEPSIS SUSPECT SECONDARY TO PNEUMONIA Ap ril 2024 7:38am SEPSIS SUSPECT SECONDARY TO PNEUMONIA Ap ril 2024 8:29am SEPSIS SUSPECT SECONDARY TO PNEUMONIA Ap ril 2024 12:55pm SEPSIS SUSPECT SECONDARY TO PNEUMONIA Ap ril 2024 5:23pm Chief Complaint Admit Date DYSPNEA/FATIGUE/PALPS October 20, 2024 7: 35am 30 DAY MONITOR October 20, 2024 11:2 8am TACHYCARDIA December 23, 2024 10 :17am Family History No Family History Records Found Relationship Condition Age at Onset Recorded Date/T timmy mother Malignant neoplasm of breast Unknown father Myocardial infarction Unknown sister Diabetes mellitus Unknown Cardiac disease Unknown Malignant neoplasm of breast Unknown Malignant neoplasm Unknown Summary Purpose Additional Source Comments Source Comments (unrecognize d section and content) In the event this informatio n is protected by the Federal Confidentiality of Alcohol and Drug Abuse Patient Records regulations: The Federal rules restrict any use of the information to criminally investigate or prosecute any alcohol or drug abuse patient.[facility] the event this information is protected by the Federal Confidentiality of Alcohol and Drug Abuse Patient Records regulations: The Federal rules restrict any use of the information to criminally investigate or prosecute any alcohol or drug abuse patient.[facility] the event this information is protected by the Federal Confidentiality of Alcohol and Drug Abuse Patient Records regulations: The Federal rules restrict any use of the information to criminally investigate or prosecute any alcohol or drug abuse patient.[facility] the event this information is protected by the Federal Confidentiality of Alcohol and Drug Abuse Patient Records regulations: The Federal rules restrict any use of the information to criminally investigate or prosecute any alcohol or drug abuse patient.[facility] the event this information is protected by the Federal Confidentiality of Alcohol and Drug Abuse Patient Records regulations: The Federal rules restrict any use of the information to criminally investigate or prosecute any alcohol or drug abuse patient.[facility] the event this information is protected by the Federal Confidentiality of Alcohol and Drug Abuse Patient Records regulations: The Federal rules restrict any use of the information to criminally investigate or prosecute any alcohol or drug abuse patient.[facility] the event this information is protected by the Federal Confidentiality of Alcohol and Drug Abuse Patient Records regulations: The Federal rules restrict any use of the information to criminally investigate or prosecute any alcohol or drug abuse patient.[facility] the event this information is protected by the Federal Confidentiality of Alcohol and Drug Abuse Patient Records regulations: The Federal rules restrict any use of the information to criminally investigate or prosecute any alcohol or drug abuse patient.[facility] the event this information is protected by the Federal Confidentiality of Alcohol and Drug Abuse Patient Records regulations: The Federal rules restrict any use of the information to criminally investigate or prosecute any alcohol or drug abuse patient.[facility] HospitalIn the event this information is protected by the Federal Confidentiality of Alcohol and Drug Abuse Patient Records regulations: The Federal rules restrict any use of the information to criminally investigate or prosecute any alcohol or drug abuse patient.[facility] HospitalIn the event this information is protected by the Federal Confidentiality of Alcohol and Drug Abuse Patient Records regulations: The Federal rules restrict any use of the information to criminally investigate or prosecute any alcohol or drug abuse patient.[facility] HospitalIn the event this information is protected by the Federal Confidentiality of Alcohol and Drug Abuse Patient Records regulations: The Federal rules restrict any use of the information to criminally investigate or prosecute any alcohol or drug abuse patient.[facility] HospitalIn the event this information is protected by the Federal Confidentiality of Alcohol and Drug Abuse Patient Records regulations: The Federal rules restrict any use of the information to criminally investigate or prosecute any alcohol or drug abuse patient.[facility] HospitalIn the event this information is protected by the Federal Confidentiality of Alcohol and Drug Abuse Patient Records regulations: The Federal rules restrict any use of the information to criminally investigate or prosecute any alcohol or drug abuse patient.[facility] HospitalIn the event this information is protected by the Federal Confidentiality of Alcohol and Drug Abuse Patient Records regulations: The Federal rules restrict any use of the information to criminally investigate or prosecute any alcohol or drug abuse patient.[facility] HospitalIn the event this information is protected by the Federal Confidentiality of Alcohol and Drug Abuse Patient Records regulations: The Federal rules restrict any use of the information to criminally investigate or prosecute any alcohol or drug abuse patient.[facility] HospitalIn the event this information is protected by the Federal Confidentiality of Alcohol and Drug Abuse Patient Records regulations: The Federal rules restrict any use of the information to criminally investigate or prosecute any alcohol or drug abuse patient.[facility] HospitalIn the event this information is protected by the Federal Confidentiality of Alcohol and Drug Abuse Patient Records regulations: The Federal rules restrict any use of the information to criminally investigate or prosecute any alcohol or drug abuse patient.[facility] HospitalIn the event this information is protected by the Federal Confidentiality of Alcohol and Drug Abuse Patient Records regulations: The Federal rules restrict any use of the information to criminally investigate or prosecute any alcohol or drug abuse patient.[facility] HospitalIn the event this information is protected by the Federal Confidentiality of Alcohol and Drug Abuse Patient Records regulations: The Federal rules restrict any use of the information to criminally investigate or prosecute any alcohol or drug abuse patient.[facility] HospitalIn the event this information is protected by the Federal Confidentiality of Alcohol and Drug Abuse Patient Records regulations: The Federal rules restrict any use of the information to criminally investigate or prosecute any alcohol or drug abuse patient.[facility] HospitalIn the event this information is protected by the Federal Confidentiality of Alcohol and Drug Abuse Patient Records regulations: The Federal rules restrict any use of the information to criminally investigate or prosecute any alcohol or drug abuse patient.[facility] HospitalIn the event this information is protected by the Federal Confidentiality of Alcohol and Drug Abuse Patient Records regulations: The Federal rules restrict any use of the information to criminally investigate or prosecute any alcohol or drug abuse patient.[facility] HospitalIn the event this information is protected by the Federal Confidentiality of Alcohol and Drug Abuse Patient Records regulations: The Federal rules restrict any use of the information to criminally investigate or prosecute any alcohol or drug abuse patient.[facility] HospitalIn the event this information is protected by the Federal Confidentiality of Alcohol and Drug Abuse Patient Records regulations: The Federal rules restrict any use of the information to criminally investigate or prosecute any alcohol or drug abuse patient.[facility] HospitalIn the event this information is protected by the Federal Confidentiality of Alcohol and Drug Abuse Patient Records regulations: The Federal rules restrict any use of the information to criminally investigate or prosecute any alcohol or drug abuse patient.[facility] HospitalIn the event this information is protected by the Federal Confidentiality of Alcohol and Drug Abuse Patient Records regulations: The Federal rules restrict any use of the information to criminally investigate or prosecute any alcohol or drug abuse patient.[facility] HospitalIn the event this information is protected by the Federal Confidentiality of Alcohol and Drug Abuse Patient Records regulations: The Federal rules restrict any use of the information to criminally investigate or prosecute any alcohol or drug abuse patient.[facility] HospitalIn the event this information is protected by the Federal Confidentiality of Alcohol and Drug Abuse Patient Records regulations: The Federal rules restrict any use of the information to criminally investigate or prosecute any alcohol or drug abuse patient.[facility] HospitalIn the event this information is protected by the Federal Confidentiality of Alcohol and Drug Abuse Patient Records regulations: The Federal rules restrict any use of the information to criminally investigate or prosecute any alcohol or drug abuse patient.[facility] HospitalIn the event this information is protected by the Federal Confidentiality of Alcohol and Drug Abuse Patient Records regulations: The Federal rules restrict any use of the information to criminally investigate or prosecute any alcohol or drug abuse patient.[facility] HospitalIn the event this information is protected by the Federal Confidentiality of Alcohol and Drug Abuse Patient Records regulations: The Federal rules restrict any use of the information to criminally investigate or prosecute any alcohol or drug abuse patient.[facility] HospitalIn the event this information is protected by the Federal Confidentiality of Alcohol and Drug Abuse Patient Records regulations: The Federal rules restrict any use of the information to criminally investigate or prosecute any alcohol or drug abuse patient.[facility] HospitalIn the event this information is protected by the Federal Confidentiality of Alcohol and Drug Abuse Patient Records regulations: The Federal rules restrict any use of the information to criminally investigate or prosecute any alcohol or drug abuse patient.[facility] HospitalIn the event this information is protected by the Federal Confidentiality of Alcohol and Drug Abuse Patient Records regulations: The Federal rules restrict any use of the information to criminally investigate or prosecute any alcohol or drug abuse patient.[facility] HospitalIn the event this information is protected by the Federal Confidentiality of Alcohol and Drug Abuse Patient Records regulations: The Federal rules restrict any use of the information to criminally investigate or prosecute any alcohol or drug abuse patient.[facility] HospitalIn the event this information is protected by the Federal Confidentiality of Alcohol and Drug Abuse Patient Records regulations: The Federal rules restrict any use of the information to criminally investigate or prosecute any alcohol or drug abuse patient.[facility] HospitalIn the event this information is protected by the Federal Confidentiality of Alcohol and Drug Abuse Patient Records regulations: The Federal rules restrict any use of the information to criminally investigate or prosecute any alcohol or drug abuse patient.[facility] HospitalIn the event this information is protected by the Federal Confidentiality of Alcohol and Drug Abuse Patient Records regulations: The Federal rules restrict any use of the information to criminally investigate or prosecute any alcohol or drug abuse patient.[facility] HospitalIn the event this information is protected by the Federal Confidentiality of Alcohol and Drug Abuse Patient Records regulations: The Federal rules restrict any use of the information to criminally investigate or prosecute any alcohol or drug abuse patient.[facility] HospitalIn the event this information is protected by the Federal Confidentiality of Alcohol and Drug Abuse Patient Records regulations: The Federal rules restrict any use of the information to criminally investigate or prosecute any alcohol or drug abuse patient.[facility] HospitalIn the event this information is protected by the Federal Confidentiality of Alcohol and Drug Abuse Patient Records regulations: The Federal rules restrict any use of the information to criminally investigate or prosecute any alcohol or drug abuse patient.[facility] HospitalIn the event this information is protected by the Federal Confidentiality of Alcohol and Drug Abuse Patient Records regulations: The Federal rules restrict any use of the information to criminally investigate or prosecute any alcohol or drug abuse patient.[facility] HospitalIn the event this information is protected by the Federal Confidentiality of Alcohol and Drug Abuse Patient Records regulations: The Federal rules restrict any use of the information to criminally investigate or prosecute any alcohol or drug abuse patient.[facility] HospitalIn the event this information is protected by the Federal Confidentiality of Alcohol and Drug Abuse Patient Records regulations: The Federal rules restrict any use of the information to criminally investigate or prosecute any alcohol or drug abuse patient.[facility] HospitalIn the event this information is protected by the Federal Confidentiality of Alcohol and Drug Abuse Patient Records regulations: The Federal rules restrict any use of the information to criminally investigate or prosecute any alcohol or drug abuse patient.[facility] HospitalIn the event this information is protected by the Federal Confidentiality of Alcohol and Drug Abuse Patient Records regulations: The Federal rules restrict any use of the information to criminally investigate or prosecute any alcohol or drug abuse patient.[facility] HospitalIn the event this information is protected by the Federal Confidentiality of Alcohol and Drug Abuse Patient Records regulations: The Federal rules restrict any use of the information to criminally investigate or prosecute any alcohol or drug abuse patient.[facility] HospitalIn the event this information is protected by the Federal Confidentiality of Alcohol and Drug Abuse Patient Records regulations: The Federal rules restrict any use of the information to criminally investigate or prosecute any alcohol or drug abuse patient.[facility] HospitalIn the event this information is protected by the Federal Confidentiality of Alcohol and Drug Abuse Patient Records regulations: The Federal rules restrict any use of the information to criminally investigate or prosecute any alcohol or drug abuse patient.[facility] HospitalIn the event this information is protected by the Federal Confidentiality of Alcohol and Drug Abuse Patient Records regulations: The Federal rules restrict any use of the information to criminally investigate or prosecute any alcohol or drug abuse patient.[facility] HospitalIn the event this information is protected by the Federal Confidentiality of Alcohol and Drug Abuse Patient Records regulations: The Federal rules restrict any use of the information to criminally investigate or prosecute any alcohol or drug abuse patient.[facility] HospitalIn the event this information is protected by the Federal Confidentiality of Alcohol and Drug Abuse Patient Records regulations: The Federal rules restrict any use of the information to criminally investigate or prosecute any alcohol or drug abuse patient.[facility] HospitalIn the event this information is protected by the Federal Confidentiality of Alcohol and Drug Abuse Patient Records regulations: The Federal rules restrict any use of the information to criminally investigate or prosecute any alcohol or drug abuse patient.[facility] HospitalIn the event this information is protected by the Federal Confidentiality of Alcohol and Drug Abuse Patient Records regulations: The Federal rules restrict any use of the information to criminally investigate or prosecute any alcohol or drug abuse patient.[facility] HospitalIn the event this information is protected by the Federal Confidentiality of Alcohol and Drug Abuse Patient Records regulations: The Federal rules restrict any use of the information to criminally investigate or prosecute any alcohol or drug abuse patient.[facility] HospitalIn the event this information is protected by the Federal Confidentiality of Alcohol and Drug Abuse Patient Records regulations: The Federal rules restrict any use of the information to criminally investigate or prosecute any alcohol or drug abuse patient.[facility] HospitalIn the event this information is protected by the Federal Confidentiality of Alcohol and Drug Abuse Patient Records regulations: The Federal rules restrict any use of the information to criminally investigate or prosecute any alcohol or drug abuse patient.[facility] HospitalIn the event this information is protected by the Federal Confidentiality of Alcohol and Drug Abuse Patient Records regulations: The Federal rules restrict any use of the information to criminally investigate or prosecute any alcohol or drug abuse patient.[facility] HospitalIn the event this information is protected by the Federal Confidentiality of Alcohol and Drug Abuse Patient Records regulations: The Federal rules restrict any use of the information to criminally investigate or prosecute any alcohol or drug abuse patient.[facility] HospitalIn the event this information is protected by the Federal Confidentiality of Alcohol and Drug Abuse Patient Records regulations: The Federal rules restrict any use of the information to criminally investigate or prosecute any alcohol or drug abuse patient.[facility] HospitalIn the event this information is protected by the Federal Confidentiality of Alcohol and Drug Abuse Patient Records regulations: The Federal rules restrict any use of the information to criminally investigate or prosecute any alcohol or drug abuse patient.[facility] HospitalIn the event this information is protected by the Federal Confidentiality of Alcohol and Drug Abuse Patient Records regulations: The Federal rules restrict any use of the information to criminally investigate or prosecute any alcohol or drug abuse patient.[facility] HospitalIn the event this information is protected by the Federal Confidentiality of Alcohol and Drug Abuse Patient Records regulations: The Federal rules restrict any use of the information to criminally investigate or prosecute any alcohol or drug abuse patient.[facility] HospitalIn the event this information is protected by the Federal Confidentiality of Alcohol and Drug Abuse Patient Records regulations: The Federal rules restrict any use of the information to criminally investigate or prosecute any alcohol or drug abuse patient.[facility] HospitalIn the event this information is protected by the Federal Confidentiality of Alcohol and Drug Abuse Patient Records regulations: The Federal rules restrict any use of the information to criminally investigate or prosecute any alcohol or drug abuse patient.[facility] HospitalIn the event this information is protected by the Federal Confidentiality of Alcohol and Drug Abuse Patient Records regulations: The Federal rules restrict any use of the information to criminally investigate or prosecute any alcohol or drug abuse patient.[facility] HospitalIn the event this information is protected by the Federal Confidentiality of Alcohol and Drug Abuse Patient Records regulations: The Federal rules restrict any use of the information to criminally investigate or prosecute any alcohol or drug abuse patient.[facility] HospitalIn the event this information is protected by the Federal Confidentiality of Alcohol and Drug Abuse Patient Records regulations: The Federal rules restrict any use of the information to criminally investigate or prosecute any alcohol or drug abuse patient.[facility] HospitalIn the event this information is protected by the Federal Confidentiality of Alcohol and Drug Abuse Patient Records regulations: The Federal rules restrict any use of the information to criminally investigate or prosecute any alcohol or drug abuse patient.[facility] HospitalIn the event this information is protected by the Federal Confidentiality of Alcohol and Drug Abuse Patient Records regulations: The Federal rules restrict any use of the information to criminally investigate or prosecute any alcohol or drug abuse patient.[facility] HospitalIn the event this information is protected by the Federal Confidentiality of Alcohol and Drug Abuse Patient Records regulations: The Federal rules restrict any use of the information to criminally investigate or prosecute any alcohol or drug abuse patient.[facility] HospitalIn the event this information is protected by the Federal Confidentiality of Alcohol and Drug Abuse Patient Records regulations: The Federal rules restrict any use of the information to criminally investigate or prosecute any alcohol or drug abuse patient.[facility] HospitalIn the event this information is protected by the Federal Confidentiality of Alcohol and Drug Abuse Patient Records regulations: The Federal rules restrict any use of the information to criminally investigate or prosecute any alcohol or drug abuse patient.[facility] HospitalIn the event this information is protected by the Federal Confidentiality of Alcohol and Drug Abuse Patient Records regulations: The Federal rules restrict any use of the information to criminally investigate or prosecute any alcohol or drug abuse patient.[facility] HospitalIn the event this information is protected by the Federal Confidentiality of Alcohol and Drug Abuse Patient Records regulations: The Federal rules restrict any use of the information to criminally investigate or prosecute any alcohol or drug abuse patient.[facility] Reason for Visit (unrecogniz ed section and content) Reason Comments Physical Therapy Specialty Diagnoses / Procedures Referred By Contac t Referred To Contact [facility] Diagnoses Reynolds virus Sepsis without acute organ dysfunction, due to unspecified organism (HCC) Post viral debility Weakness acquired in ICU Procedures CONSULT TO PHYSICAL THERAPY PHYSICAL THERAPY EVALUATION HIGH COMPLEX 45 MINS Yvan Rahman MD [address] [place] [address] Phone: tel: fax: [facility] [address] [place] [address] Referral ID Status Reason Start Date Expiration Date Visits Requested Visits Authorized [id number] Authorized PCP Requested Referral Auto-Generate d Referral 09/02/2024 09/02/2025 99 99 Reason Onset Date Comments Refill Request 11/14/2021 Reason Comments Patient Question COVID positive 022 Reason Onset Date Comments Refill Request 11/23/2021 Reason Onset Date Comments Refill Request 12/18/2021 Reason Onset Date Comments Refill Request 01/09/2022 Reason Onset Date Comments Refill Request 02/02/2022 Reason Onset Date Comments Refill Request 05/08/2022 Reason Onset Date Comments Refill Request 06/11/2022 Reason Onset Date Comments Refill Request 07/03/2022 Reason Onset Date Comments Refill Request 08/09/2022 Reason Comments Medicare Wellness Exam Reason Onset Date Comments Refill Request 09/22/2022 Reason Onset Date Comments Refill Request 12/01/2022 Reason Onset Date Comments Refill Request 12/28/2022 Reason Comments F/U 6 months Reason Comments Results Reason Comments Diarrhea X1 week, vomiting, f ever, fatigue x4 days Reason Comments Follow Up Reason Onset Date Comments Refill Request 07/13/2023 Reason Onset Date Comments Refill Request 08/27/2023 Reason Comments Refill Request Reason Onset Date Comments Refill Request 11/18/2023 Reason Onset Date Comments Refill Request 12/05/2023 Reason Comments 6 Month Exam Reason Onset Date Comments Refill Request 01/03/2024 Reason Onset Date Comments Refill Request 01/22/2024 Reason Onset Date Comments Refill Request 05/04/2024 Reason Onset Date Comments Refill Request 05/28/2024 Reason Comments requesting blood work Reason Onset Date Comments Refill Request 07/06/2024 Reason Onset Date Comments Refill Request 07/10/2024 Reason Comments Medicare Wellness Exam Reason Comments Established Patient Abnormal gait, shuff les per family, tremor in left x1 yr Specialty Diagnoses / Procedures Referred By Faby dumont Referred To Contact Neurology Diagnoses Resting tremor Bradykinesia Procedures CONSULT TO NEUROLOGY OFFICE/OUTPATIENT [facility] 60 MINUTES Yvan Rahman MD [address] [place] [address] Phone: tel: fax: Referral ID Status Reason Start Date Expiration Date V isits Requested Visits Authorized [id number] Closed PCP Requested Referral 07/16/2024 07/16/2025 1 1 Reason Comments ER F/U [facility] - ER Reason Comments Hospital F/U Reason Onset Date Comments chest xray results 08/28/2024 Reason Comments Hospital F/U Reason Comments PT Eval Reason Onset Date Comments Refill Request 09/24/2024 Reason Comments Follow Up Reason Onset Date Comments Refill Request 10/16/2024 Reason Comments Spirometry Specialty Diagnoses / Procedures Referred By Contac t Referred To [facility] Diagnoses NAIK (dyspnea on exertion) Decreased stamina Procedures SPIROMETRY - BASELINE AND POST DILATOR BRNCDILAT RSPSE SPMTRY PRE&POST-BRNCDILAT Yvan Hernández MD [address] [place] [id number] Phone: tel: fax: [facility] [place] [address] [place] [address] Referral ID Status Reason Start Date Expiration Date V isits Requested Visits Authorized [id number] Closed Auto-Generate d Referral 10/06/2024 11/05/2025 1 1 Reason Comments Results Holter Reason Comments New Patient Abnormal PFTs October 12 Reason Onset Date Comments Refill Request 12/04/2024 Reason Comments Abstract Cardiology OV note - [facility] Reason Onset Date Comments Population Health Navigation Outreach 12/24/2024 [facility] Reason Onset Date Comments Refill Request 12/31/2024 Reason Comments F/U 6 Month Care Teams (unrecognized sec tion and content) Team Status: Active Member Role Status Dates Dr. Yvan Rahman MD Primary Care Provider Active Team Status: Inactive Member Role Status Dates Dr. Yvan Rahman MD Primary Care Provider Active Start: August 19, 2024 End: August 23, 2024 Denilson Foley MD Emergency Provider Active Star t: August 19, 2024 End: August 23, 2024 Dr. Yadira Pruett MD Admit Provider Active Star t: August 19, 2024 End: August 23, 2024 Dr. Yadira Pruett MD Attending Provider Active Start: August 19, 2024 End: August 23, 2024 Dr. Yadira Pruett MD Other Provider Active Star t: August 19, 2024 Team Status: Active Member Role Status Dates Dr. Yvan Rahman MD Primary Care Provider Active Start: August 19, 2024 Denilson Foley MD Emergency Provider Active Star t: August 19, 2024 Dr. Yadira Pruett MD Admit Provider Active Star t: August 19, 2024 Dr. Yadira Pruett MD Other Provider Active Star t: August 19, 2024 Dr. Lui Rose MD Other Provider Active Start: August 19, 2024 Dr. Chau Grimes MD Other Provider Active Start: August 19, 2024 Dr. Huan Merrill MD Other Provider Active Star t: August 19, 2024 Dr. Case Paredes , Attending Provider Active S tart: August 19, 2024 Dr. Case Paredes DO Other Provider Active Start : August 19, 2024 Dr. Brian Gallegos MD Other Provider Active Sta rt: August 19, 2024 Dr. Filiberto Everett MD Other Provider Active St art: August 19, 2024 Dr. Harjit Schwartz MD Other Provider Active S tart: August 19, 2024 Dr. Alissa Levy MD Other Provider Active Start: August 19, 2024 Dr. Kaushik Isidro MD Other Provider Active Start : August 19, 2024 Dr. Chang Kiser MD Other Provider Active Start: August 19, 2024 Dr. Jesus Zamudio MD Other Provider Active Start : August 19, 2024 Dr. Yamila Cantrell MD Other Provider Active Star t: August 19, 2024 Dr. Candis Basurto MD Other Provider Active Sta rt: August 19, 2024 Dr. Keira Resendez MD Other Provider Active Sta rt: August 19, 2024 Dr. Gio Youngblood MD Other Provider Active Star t: August 19, 2024 Dr. Roberto Yen MD Other Provider Active St art: August 19, 2024 Dr. Mark Calabrese MD Other Provider Active Star t: August 19, 2024 Dr. Jhony Banerjee DO Other Provider Active St art: August 19, 2024 Dr. Sharifa Macario MD Other Provider Active Start: August 19, 2024 Dr. Wendy Sands MD Other Provider Active St art: August 19, 2024 Dr. Swapnil Silva DO Other Provider Active Start: August 19, 2024 Dr. Kali Chong MD Other Provider Active Star t: August 19, 2024 Dr. Cam Botello MD Other Provider Active Sta rt: August 19, 2024 Team Status: Active Member Role Status Dates Dr. Yvan Rahman MD Primary Care Provider Active Start: August 20, 2024 Denilson Foley MD Emergency Provider Active Star t: August 20, 2024 Dr. Yadira Pruett MD Admit Provider Active Star t: August 20, 2024 Dr. Yadira Pruett MD Attending Provider Active Start: August 20, 2024 Dr. Yadira Pruett MD Other Provider Active Star t: August 20, 2024 Dr. Lui Rose MD Other Provider Active Start: August 20, 2024 Dr. Chau Grimes MD Other Provider Active Start: August 20, 2024 Dr. Huan Merrill MD Other Provider Active Star t: August 20, 2024 Dr. Case Paredes DO Other Provider Active Start : August 20, 2024 Dr. Brian Gallegso MD Other Provider Active Sta rt: August 20, 2024 Dr. Filiberto Everett MD Other Provider Active St art: August 20, 2024 Dr. Harjit Schwartz MD Other Provider Active S tart: August 20, 2024 Dr. Alissa Levy MD Other Provider Active Start: August 20, 2024 Dr. Kaushik Isidro MD Other Provider Active Start : August 20, 2024 Dr. Chang Kiser MD Other Provider Active Start: August 20, 2024 Dr. Jesus Zamudio MD Other Provider Active Start : August 20, 2024 Dr. Yamila Cantrell MD Other Provider Active Star t: August 20, 2024 Dr. Candis Basurto MD Other Provider Active Sta rt: August 20, 2024 Dr. Keira Resendez MD Other Provider Active Sta rt: August 20, 2024 Dr. Gio Youngblood MD Other Provider Active Star t: August 20, 2024 Dr. Roberto Yen MD Other Provider Active St art: August 20, 2024 Dr. Mark Calabrese MD Other Provider Active Star t: August 20, 2024 Dr. Jhony Banerjee , Other Provider Active St art: August 20, 2024 Dr. Sharifa Macario MD Other Provider Active Start: August 20, 2024 Dr. Wendy Sands MD Other Provider Active St art: August 20, 2024 Dr. Swapnil Silva DO Other Provider Active Start: August 20, 2024 Dr. Kali Chong MD Other Provider Active Star t: August 20, 2024 Dr. Cam Botello MD Other Provider Active Sta rt: August 20, 2024 Team Status: Active Member Role Status Dates Dr. Yvan Rahman MD Primary Care Provider Active Start: August 20, 2024 Denilson Foley MD Emergency Provider Active Star t: August 20, 2024 Dr. Yadira Pruett MD Admit Provider Active Star t: August 20, 2024 Dr. Yadira Pruett MD Other Provider Active Star t: August 20, 2024 Dr. Lui Rose MD Other Provider Active Start: August 20, 2024 Dr. Chau Grimes MD Other Provider Active Start: August 20, 2024 Dr. Huan Merrill MD Other Provider Active Star t: August 20, 2024 Dr. Case Paredes DO Attending Provider Active S tart: August 20, 2024 Dr. Case Paredes DO Other Provider Active Start : August 20, 2024 Dr. Brian Gallegos MD Other Provider Active Sta rt: August 20, 2024 Dr. Filiberto Everett MD Other Provider Active St art: August 20, 2024 Dr. Harjit Schwartz MD Other Provider Active S tart: August 20, 2024 Dr. Alissa Levy MD Other Provider Active Start: August 20, 2024 Dr. Kaushik Isidro MD Other Provider Active Start : August 20, 2024 Dr. Chang Kiser MD Other Provider Active Start: August 20, 2024 Dr. Jesus Zamudio MD Other Provider Active Start : August 20, 2024 Dr. Yamila Cantrell MD Other Provider Active Star t: August 20, 2024 Dr. Candis Basurto MD Other Provider Active Sta rt: August 20, 2024 Dr. Keira Resendez MD Other Provider Active Sta rt: August 20, 2024 Dr. Gio Youngblood MD Other Provider Active Star t: August 20, 2024 Dr. Roberto Yen MD Other Provider Active St art: August 20, 2024 Dr. Mark Calabrese MD Other Provider Active Star t: August 20, 2024 Dr. Jhony Banerjee DO Other Provider Active St art: August 20, 2024 Dr. Sharifa Macario MD Other Provider Active Start: August 20, 2024 Dr. Wendy Sands MD Other Provider Active St art: August 20, 2024 Dr. Swapnil Silva DO Other Provider Active Start: August 20, 2024 Dr. Kali Chong MD Other Provider Active Star t: August 20, 2024 Dr. Cam Botello MD Other Provider Active Sta rt: August 20, 2024 Team Status: Active Member Role Status Dates Dr. Yvan Rahman MD Primary Care Provider Active Start: August 21, 2024 Denilson Foley MD Emergency Provider Active Star t: August 21, 2024 Dr. Yadira Pruett MD Admit Provider Active Star t: August 21, 2024 Dr. Yadira Pruett MD Other Provider Active Star t: August 21, 2024 Dr. Lui Rose MD Other Provider Active Start: August 21, 2024 Dr. Chau Grimes MD Other Provider Active Start: August 21, 2024 Dr. Huan Merrill MD Other Provider Active Star t: August 21, 2024 Dr. Case Paredes DO Attending Provider Active S tart: August 21, 2024 Dr. Case Paredes DO Other Provider Active Start : August 21, 2024 Dr. Brian Gallegos MD Other Provider Active Sta rt: August 21, 2024 Dr. Filiberto Everett MD Other Provider Active St art: August 21, 2024 Dr. Harjit Schwartz MD Other Provider Active S tart: August 21, 2024 Dr. Alissa Levy MD Other Provider Active Start: August 21, 2024 Dr. Kaushik Isidro MD Other Provider Active Start : August 21, 2024 Dr. Chang Kiser MD Other Provider Active Start: August 21, 2024 Dr. Jesus Zamudio MD Other Provider Active Start : August 21, 2024 Dr. Yamila Cantrell MD Other Provider Active Star t: August 21, 2024 Dr. Candis Basurto MD Other Provider Active Sta rt: August 21, 2024 Dr. Keira Resendez MD Other Provider Active Sta rt: August 21, 2024 Dr. Gio Youngblood MD Other Provider Active Star t: August 21, 2024 Dr. Roberto Yen MD Other Provider Active St art: August 21, 2024 Dr. Mark Calabrese MD Other Provider Active Star t: August 21, 2024 Dr. Jhony Banerjee DO Other Provider Active St art: August 21, 2024 Dr. Sharifa Macario MD Other Provider Active Start: August 21, 2024 Dr. Wendy Sands MD Other Provider Active St art: August 21, 2024 Dr. Swapnil Silva DO Other Provider Active Start: August 21, 2024 Dr. Kali Chong MD Other Provider Active Star t: August 21, 2024 Dr. Cam Botello MD Other Provider Active Sta rt: August 21, 2024 Team Status: Active Member Role Status Dates Dr. Yvan Rahman MD Primary Care Provider Active Start: August 21, 2024 Denilson Foley MD Emergency Provider Active Star t: August 21, 2024 Dr. Yadira Pruett MD Admit Provider Active Star t: August 21, 2024 Dr. Yadira Pruett MD Attending Provider Active Start: August 21, 2024 Dr. Yadira Pruett MD Other Provider Active Star t: August 21, 2024 Team Status: Active Member Role Status Dates Dr. Yvan Rahman MD Primary Care Provider Active Start: August 22, 2024 Denilson Foley MD Emergency Provider Active Star t: August 22, 2024 Dr. Yadira Pruett MD Admit Provider Active Star t: August 22, 2024 Dr. Yadira Pruett MD Attending Provider Active Start: August 22, 2024 Dr. Yadira Pruett MD Other Provider Active Star t: August 22, 2024 Fitting Room Operator Relationship Specialty Start Date End Date Yvan Rahman MD [address] [place] [address] PCP - General Family Practice 06/26/13 Kayden Wilkinson MD [address] [facility] [place] [address] Family Practice 08/07/10 Fitting Room Operator Relationship Specialty Start Date End Date Yvan Rahman MD [address] [facility] [place] [address] PCP - General Family Practice 06/26/13 Kayden Wilkinson MD [address] [facility] [place] [address] Family Practice 08/07/10 Fitting Room Operator Relationship Specialty Start Date End Date Yvan Rahman MD [address] [place] [address] PCP - General Family Practice 06/26/13 Kayden Wilkinson MD [facility] [place] [address] Family Practice 08/07/10 Fitting Room Operator Relationship Specialty Start Date End Date Yvan Rahman MD [address] [facility] [place] [address] PCP - General Family Practice 06/26/13 Kayden Wilkinson MD [facility] [place] [address] Family Practice 08/07/10 Fitting Room Operator Relationship Specialty Start Date End Date Yvan Rahman MD [address] [facility] [place] [address] PCP - General Family Medicine 06/26/13 Kayden Wilkinson MD [address] [facility] [place] [address] Family Medicine 08/07/10 Fitting Room Operator Relationship Specialty Start Date End Date Yvan Rahman MD [address] [place] [address] PCP - General Family Medicine 06/26/13 Kayden Wilkinson MD [address] [facility] [place] [address] Family Medicine 08/07/10 Fitting Room Operator Relationship Specialty Start Date End Date Yvan Rahman MD [address] [facility] [place] [address] PCP - General Family Medicine 06/26/13 Kayden Wilkinson MD [address] [facility] [place] [address] Family Medicine 08/07/10 Fitting Room Operator Relationship Specialty Start Date End Date Yvan Rahman MD [address] [facility] [place] [address] PCP - General Family Medicine 06/26/13 Kayden Wilkinson MD [facility] [place] [address] Family Medicine 08/07/10 Fitting Room Operator Relationship Specialty Start Date End Date Yvan Rahman MD [address] [facility] [place] [address] PCP - General Family Medicine 06/26/13 Kayden Wilkinson MD [address] [facility] [place] [address] Family Medicine 08/07/10 Fitting Room Operator Relationship Specialty Start Date End Date Yvan Rahman MD [address] [facility] [place] [address] PCP - General Family Medicine 06/26/13 Kayden Wilkinson MD [address] [facility] [place] [address] Family Medicine 08/07/10 Fitting Room Operator Relationship Specialty Start Date End Date Yvan Rahman MD [address] [place] [address] PCP - General Family Medicine 06/26/13 Kayden Wilkinson MD [address] [place] [address] Family Medicine 08/07/10 Fitting Room Operator Relationship Specialty Start Date End Date Yvan Rahman MD [address] [place] [address] PCP - General Family Medicine 06/26/13 Kayden Wilkinson MD [address] [place] [address] Family Medicine 08/07/10 Fitting Room Operator Relationship Specialty Start Date End Date Yvan Rahman MD [address] [place] [address] PCP - General Family Medicine 06/26/13 Kayden Wilkinson MD [address] [place] [address] Family Medicine 08/07/10 Fitting Room Operator Relationship Specialty Start Date End Date Yvan Rahman MD [address] [place] [address] PCP - General Family Medicine 06/26/13 Kayden Wilkinson MD [address] [place] [address] Family Medicine 08/07/10 Fitting Room Operator Relationship Specialty Start Date End Date Yvan Rahman MD [address] [place] [address] PCP - General Family Medicine 06/26/13 Kayden Wilkinson MD [address] [place] [address] Family Medicine 08/07/10 Fitting Room Operator Relationship Specialty Start Date End Date Yvan Rahman MD [address] [place] [address] PCP - General Family Medicine 06/26/13 Kayden Wilkinson MD [address] [facility] [place] [address] Family Medicine 08/07/10 Fitting Room Operator Relationship Specialty Start Date End Date Yvan Rahman MD [address] [facility] [place] [address] PCP - General Family Medicine 06/26/13 Kayden Wilkinson MD [address] [facility] [place] [address] Family Medicine 08/07/10 Fitting Room Operator Relationship Specialty Start Date End Date Yvan Rahman MD [address] [facility] [place] [address] PCP - General Family Medicine 06/26/13 Kadyen Wilkinson MD [address] [facility] [place] [address] Family Medicine 08/07/10 Fitting Room Operator Relationship Specialty Start Date End Date Yvan Rahman MD [address] [place] [address] PCP - General Family Medicine 06/26/13 Kayden Wilkinson MD [address] [facility] [place] [address] Family Medicine 08/07/10 Fitting Room Operator Relationship Specialty Start Date End Date Yvan Rahman MD [address] [place] [address] PCP - General Family Medicine 06/26/13 Kayden Wilkinson MD [address] [place] [address] Family Medicine 08/07/10 Fitting Room Operator Relationship Specialty Start Date End Date Yvan Rahman MD [address] [place] [address] PCP - General Family Medicine 06/26/13 Kayden Wilkinson MD [address] [place] [address] Family Medicine 08/07/10 Fitting Room Operator Relationship Specialty Start Date End Date Yvan Rahman MD [address] [place] [address] PCP - General Family Medicine 06/26/13 Kayden Wilkinson MD [address] [place] [address] Family Medicine 08/07/10 Fitting Room Operator Relationship Specialty Start Date End Date Yvan Rahman MD [address] [place] [address] PCP - General Family Medicine 06/26/13 Kayden Wilkinson MD [address] [place] [address] Family Medicine 08/07/10 Fitting Room Operator Relationship Specialty Start Date End Date Yvan Rahman MD [address] [place] [address] PCP - General Family Medicine 06/26/13 Kayden Wilkinson MD [address] [place] [address] Family Medicine 08/07/10 Fitting Room Operator Relationship Specialty Start Date End Date Yvan Rahman MD [address] [place] [address] PCP - General Family Medicine 06/26/13 Kayden Wilkinson MD [address] [place] [address] Family Medicine 08/07/10 Bernice Maier, STAFFING ASSISTANT.GRAVITY PROSPECTING OPERATOR HELPER [address] [place] [address] Carpenter Helper Family Medicine 04/18/24 Zahra Arias PA-C [address] [place] [address] Carpenter Helper Family Medicine 04/18/24 Fitting Room Operator Relationship Specialty Start Date End Date Yvan Rahman MD [address] [place] [address] PCP - General Family Medicine 06/26/13 Kayden Wilkinson MD [address] [place] [address] Family Medicine 08/07/10 Bernice Maier, RANDELL.GRAVITY PROSPECTING OPERATOR HELPER [address] [place] [address] Carpenter Helper Family [facility] 04/18/24 Zahra Arias PA-C [address] [place] [address] [facility] 04/18/24 Fitting Room Operator Relationship Specialty Start Date End Date Yvan Rahman MD [address] [place] [address] PCP - General Family Medicine 06/26/13 Kayden Wilkinson MD [address] [place] [address] Family Medicine 08/07/10 Bernice Maier APRN.GRAVITY PROSPECTING OPERATOR HELPER [address] [place] [address] [facility] 04/18/24 Zahra Arias PA-C [address] [place] [address] [facility] 04/18/24 Fitting Room Operator Relationship Specialty Start Date End Date Yvan Rahman MD [address] [place] [address] PCP - General Family Medicine 06/26/13 Kayden Wilkinson MD [address] [place] [address] Family Medicine 08/07/10 Bernice Maier APRN.GRAVITY PROSPECTING OPERATOR HELPER [address] [place] [address] Carpenter Helper Family [facility] 04/18/24 Zahra Arias PA-C [address] [place] [address] [facility] 04/18/24 Fitting Room Operator Relationship Specialty Start Date End Date Yvan Rahman MD [address] [place] [address] PCP - General Family Medicine 06/26/13 Kayden Wilkinson MD [address] [place] [address] Family Medicine 08/07/10 Bernice Maier APRN.GRAVITY PROSPECTING OPERATOR HELPER [address] [place] [address] [facility] Hel[facility] 04/18/24 Zahra Arias PA-C [address] [place] [address] [facility] Hel[facility] 04/18/24 Fitting Room Operator Relationship Specialty Start Date End Date Yvan Rahman MD [address] [place] [address] PCP - General Family Medicine 06/26/13 Kayden Wilkinson MD [address] [place] [address] Family Medicine 08/07/10 Bernice Maier, RANDELL.GRAVITY PROSPECTING OPERATOR HELPER [address] [place] [address] [facility] 04/18/24 Zahra Arias PA-C [address] [place] [address] [facility] 04/18/24 Fitting Room Operator Relationship Specialty Start Date End Date Yvan Rahman MD [address] [place] [address] PCP - General Family Medicine 06/26/13 Kayden Wilkinson MD [address] [place] [address] Family Medicine 08/07/10 Bernice Maier, RANDELL.GRAVITY PROSPECTING OPERATOR HELPER [address] [place] [address] Carpenter Helper [facility] 04/18/24 Zahra Arias PA-C [address] [place] [address] Carpenter Helper [facility] 04/18/24 Fitting Room Operator Relationship Specialty Start Date End Date Yvan Rahman MD [address] [place] [address] PCP - General Family Medicine 06/26/13 Kayden Wilkinson MD [address] [place] [address] Family Medicine 08/07/10 Bernice Maier, STAFFING ASSISTANT.GRAVITY PROSPECTING OPERATOR HELPER [address] [place] [address] Carpenter Helper [facility] 04/18/24 Zahra Arias PA-C [address] [place] [address] [facility] 04/18/24 Team Status: Active Member Role Status Dates Dr. Yvan Rahman MD Primary Care Provider Active Start: August 19, 2024 Denilson Foley MD Emergency Provider Active Star t: August 19, 2024 Dr. Yadira Pruett MD Admit Provider Active Star t: August 19, 2024 Dr. Yadira Pruett MD Attending Provider Active Start: August 19, 2024 Dr. Yadira Pruett MD Other Provider Active Star t: August 19, 2024 Fitting Room Operator Relationship Specialty Start Date End Date Yvan Rahman MD [address] [place] [address] PCP - General Family Medicine 08/17/24 Kayden Wilkinson MD [address] [place] [address] Family Medicine 08/07/10 Bernice Maier, RANDELL.GRAVITY PROSPECTING OPERATOR HELPER [address] [place] [address] [facility] 04/18/24 Zahra Arias PA-C [facility] [place] [address] Carpenter Helper [facility] Medicine 04/18/24 Fitting Room Operator Relationship Specialty Start Date End Date Yvan Rahman MD [address] [place] [address] PCP - General Family Medicine 08/17/24 Kayden Wilkinson MD [address] [place] [address] Family Medicine 08/07/10 Bernice Maier APRN.GRAVITY PROSPECTING OPERATOR HELPER [facility] [place] [address] [facility] Hel[facility] 04/18/24 Zahra Arias PA-C [address] [place] [address] [facility] Hel[facility] 04/18/24 Fitting Room Operator Relationship Specialty Start Date End Date Yvan Rahman MD [address] [place] [address] PCP - General Family Medicine 08/17/24 Kayden Wilkinson MD [address] [place] [address] Family Medicine 08/07/10 Bernice Maier APRN.GRAVITY PROSPECTING OPERATOR HELPER [address] [place] [address] [facility] 04/18/24 Zahra Arias PA-C [facility] [place] [address] [facility] Helper Family Medicine 04/18/24 Fitting Room Operator Relationship Specialty Start Date End Date Yvan Rahman MD [address] [place] [address] PCP - General Family Medicine 08/17/24 Kayden Wilkinson MD [facility] [place] [address] Family Medicine 08/07/10 Bernice Maier APRN.GRAVITY PROSPECTING OPERATOR HELPER [address] [place] [address] [facility] Hel[facility] 04/18/24 Zahra Arias PA-C [address] [place] [address] [facility] Helper [facility] 04/18/24 Fitting Room Operator Relationship Specialty Start Date End Date Yvan Rahman MD [address] [place] [address] PCP - General Family Medicine 08/17/24 Kayden Wilkinson MD [address] [place] [address] Family Medicine 08/07/10 Bernice Maier, RANDELL.GRAVITY PROSPECTING OPERATOR HELPER [facility] [place] [address] Carpenter Helper Family Medicine 04/18/24 Zahra Arias PA-C [facility] [place] [address] Carpenter Helper Family Medicine 04/18/24 Fitting Room Operator Relationship Specialty Start Date End Date Yvan Rahman MD [address] [place] [address] PCP - General Family Medicine 08/17/24 Kayden Wilkinson MD [facility] [place] [address] Family Medicine 08/07/10 Bernice Maier, STAFFING ASSISTANT.GRAVITY PROSPECTING OPERATOR HELPER [facility] [place] [address] Carpenter Helper Family Medicine 04/18/24 Zahra Arias PA-C [address] [place] [address] Carpenter Helper [facility] 04/18/24 Fitting Room Operator Relationship Specialty Start Date End Date Yvan Rahman MD [address] [place] [address] PCP - General Family Medicine 08/17/24 Kayden Wilkinson MD [address] [place] [address] Family Medicine 08/07/10 Bernice Maier APRN.[facility] [address] [place] [address] Carpenter Helper Family [facility] 04/18/24 Zahra Arias PA-C [address] [place] [address] [facility] 04/18/24 Fitting Room Operator Relationship Specialty Start Date End Date Yvan Rahman MD [address] [place] [address] PCP - General Family Medicine 08/17/24 Kayden Wilkinson MD [address] [place] [address] Family Medicine 08/07/10 Zahra Arias PA-C [address] [place] [address] [facility] 04/18/24 Fitting Room Operator Relationship Specialty Start Date End Date Yvan Rahman MD [address] [place] [address] PCP - General Family Medicine 08/17/24 Kayden Wilkinson MD [address] [place] [address] Family Medicine 08/07/10 Zahra Arias PA-C [address] [place] [address] [facility] 04/18/24 Fitting Room Operator Relationship Specialty Start Date End Date Yvan Rahman MD [address] [place] [address] PCP - General Family Medicine 08/17/24 Kayden Wilkinson MD [address] [place] [address] Family Medicine 08/07/10 Zahra Arias PA-C [address] [place] [address] [facility] Helper [facility] 04/18/24 Fitting Room Operator Relationship Specialty Start Date End Date Yvan Rahman MD [address] [place] [address] PCP - General Family Medicine 08/17/24 Kayden Wilkinson MD [address] [place] [address] Family Medicine 08/07/10 Zahra Arias PA-C [address] [place] [address] Carpenter Helper [facility] Medicine 04/18/24 Fitting Room Operator Relationship Specialty Start Date End Date Yvan Rahman MD [address] [place] [address] PCP - General Family Medicine 08/17/24 Kayden Wilkinson MD [address] [place] [address] Family Medicine 08/07/10 Bernice Maier APRN.GRAVITY PROSPECTING OPERATOR HELPER [address] [place] [address] Carpenter Helper Family Medicine 10/12/24 Zahra Arias PA-C [address] [place] [address] Carpenter Helper Family Medicine 10/12/24 Fitting Room Operator Relationship Specialty Start Date End Date Yvan Rahman MD [address] [place] [address] PCP - General Family Medicine 08/17/24 Kayden Wilkinson MD [address] [place] [address] Family Medicine 08/07/10 Bernice Maier, STAFFING ASSISTANT.GRAVITY PROSPECTING OPERATOR HELPER [address] [place] [address] Carpenter Hel[facility] Family Medicine 10/12/24 Zahra Arisa PA-C [address] [place] [address] [facility] 10/12/24 Fitting Room Operator Relationship Specialty Start Date End Date Yvan Rahman MD [address] [place] [address] PCP - General Family Medicine 08/17/24 Kayden Wilkinson MD [address] [place] [address] Family Medicine 08/07/10 Bernice Maier, STAFFING ASSISTANT.GRAVITY PROSPECTING OPERATOR HELPER [address] [place] [address] [facility] 10/12/24 Zahra Arias PA-C [address] [place] [address] [facility] Helper Family [facility] 10/12/24 Fitting Room Operator Relationship Specialty Start Date End Date Yvan Rahman MD [address] [place] [address] PCP - General Family Medicine 08/17/24 Kayden Wilkinson MD [address] [place] [address] Family Medicine 08/07/10 Bernice Maier APRN.GRAVITY PROSPECTING OPERATOR HELPER [address] [place] [id number] [facility] Family [facility] 10/12/24 Zahra Arias PA-C [address] [place] [address] [facility] Family [facility] 10/12/24 Fitting Room Operator Relationship Specialty Start Date End Date Yvan Rahman MD [address] [place] [address] PCP - General Family Medicine 08/17/24 Kayden Wilkinson MD [address] [place] [address] Family Medicine 08/07/10 Bernice Maier APRN.GRAVITY PROSPECTING OPERATOR HELPER [facility] [place] [address] [facility] Family [facility] 10/12/24 Zahra Arias PA-C [address] [place] [address] [facility] 10/12/24 Fitting Room Operator Relationship Specialty Start Date End Date Yvan Rahman MD [address] [place] [address] PCP - General Family Medicine 08/17/24 Kayden Wilkinson MD [address] [place] [address] Family Medicine 08/07/10 Bernice Maier APRN.GRAVITY PROSPECTING OPERATOR HELPER [address] [place] [id number] [facility] 10/12/24 Zahra Arias PA-C [facility] [place] [address] [facility] 10/12/24 Fitting Room Operator Relationship Specialty Start Date End Date Yvan Rahman MD [address] [place] [address] PCP - General Family Medicine 08/17/24 Kayden Wilkinson MD [facility] [place] [address] Family Medicine 08/07/10 Bernice Maier APRN.GRAVITY PROSPECTING OPERATOR HELPER [facility] [place] [address] [facility] 10/12/24 Zahra Arias PA-C [address] [place] [address] [facility] 10/12/24 Fitting Room Operator Relationship Specialty Start Date End Date Yvna Rahman MD [address] [place] [address] PCP - General Family Medicine 08/17/24 Kayden Wilkinson MD [address] [place] [address] Family Medicine 08/07/10 Bernice Maier APRN.CNP [address] [place] [address] [facility] Family [facility] 10/12/24 Zahra Arias PA-C [address] [place], [place] [address] Carpenter Helper [facility] 10/12/24 Team Status: Active Member Role/Relationship Status Dates Dr. Yvan Rahman MD Primary Care Provider Active Team Status: Active Member Role/Relationship Status Dates Dr. Yvan Rahman MD Primary Care Provider Active Start: October 20, 2024 Dr. Yvan Rahman MD Attending Provider Active Start: October 20, 2024 Dr. Yvan Rahman MD Referring Provider Active Start: October 20, 2024 Team Status: Active Member Role/Relationship Status Dates Dr. Yvan Rahman MD Primary Care Provider Active Start: October 20, 2024 Dr. Yvan Rahman MD Referring Provider Active Start: October 20, 2024 Dr. Rex Pugh MD Attending Provider Active Start: October 20, 2024 Team Status: Inactive Member Role/Relationship Status Dates Dr. Yvan Rahman MD Primary Care Provider Active Start: December 23, 2024 End: December 23, 2024 Dr. Yvan Rahman MD Referring Provider Active Start: December 23, 2024 End: December 23, 2024 Dr. Fran De Leon MD Attending Provider Active S tart: December 23, 2024 End: December 23, 2024 Fitting Room Operator Relationship Specialty Start Date End Date Yvan Rahman MD [address] [place] [address] PCP - General Family Medicine 08/17/24 Kayden Wilkinson MD [address] [place] [address] Family Medicine 08/07/10 Bernice Maier APRN.GRAVITY PROSPECTING OPERATOR HELPER [address] [place] [address] [facility] 10/12/24 Zahra Arias PA-C [address] [place] [address] [facility] 10/12/24 Fitting Room Operator Relationship Specialty Start Date End Date Yvan Rahman MD [address] [place] [address] PCP - General Family Medicine 08/17/24 Kayden Wilkinson MD [facility] [place] [address] Family Medicine 08/07/10 Bernice Maier, RANDELL.GRAVITY PROSPECTING OPERATOR HELPER [address] [place] [address] [facility] 10/12/24 Zahra Arias PA-C [address] [place] [address] [facility] 10/12/24 Fitting Room Operator Relationship Specialty Start Date End Date Yvan Rahman MD [address] [place] [address] PCP - General Family Medicine 08/17/24 Kayden Wilkinson MD [facility] [place] [address] Family Medicine 08/07/10 Bernice Maier APRN.GRAVITY PROSPECTING OPERATOR HELPER [address] [place] [id number] [facility] 10/12/24 Zahra Arias PA-C [address] [place] [address] [facility] 10/12/24 Fitting Room Operator Relationship Specialty Start Date End Date Yvan Rahman MD [address] [place] [address] PCP - General Family Medicine 08/17/24 Kayden Wilkinson MD [address] [place] [address] Family [facility] 08/07/10 Bernice Maier APRN.GRAVITY PROSPECTING OPERATOR HELPER [address] [place] [address] [id number] [facility] 10/12/24 Zahra Arias PA-C [address] [place] [id number] [facility] 10/12/24 Goals (unrecognized section and content) Goals may be documented in a n alternate section (unrecognized sect ion and content) No Status Records FoundNo Status Records Found INFORMATION SOURCE (unrecogn ized section and content) DATE CREATED AUTHOR 01/22/2025 [facility] DATE CREATED AUTHOR 'S JAMEL GLEZ 01/24/2025 [facility] FOR RECORDS PERTAINING TO PATIENTS WHO ARE OR HAVE BEEN ENROLLED IN A CHEMICAL DEPENDENCY/SUBSTANCEABUSE PROGRAM, SOME INFORMATION MAY BE OMITTED. This clinical summary was aggregated from multiple sources. Caution should be exercised in using it in the provision of clinical care. This summary normalizes information from multiple sources, and as a consequence, information in this document may materially change the coding, format and clinical context of patient data. In addition, data may be omitted in some cases. CLINICAL DECISIONS SHOULD BE BASED ON THE PRIMARY CLINICAL RECORDS. [facility]. provides no warranty or guarantee of the accuracy or completeness of information in this document.
--- NOTE | 2025-01-27 18:00 | STRESSREP ---
Stress Test Report Pharmacologic myocardial perfusion stress test. 84-year-old man with a history of supraventricular tachycardia.. Resting EKG demonstrates sinus bradycardia with a rate of 51 bpm. Resting blood pressure is 148/70 mmHg. 0.4 mg of regadenoson was infused per usual protocol followed by rapid intravenous saline flush injection. Continuous EKG monitoring was performed. The maximum heart rate was 78 bpm which was 56% of max impacted heart rate the maximum workload was 1 metabolic equivalent. At rest there were no ST or T wave changes noted to suggest ischemia and at peak infusion nonspecific ST changes were noted which did not meet the criteria for ischemia. No clinical angina is noted. The final blood pressure was 148/72 mmHg. Myocardial perfusion protocol. 11 mCi of technetium 99m sestamibi was injected at rest. 0.4 mg of regadenoson was infused per usual protocol. At peak infusion 36 mCi of technetium 99m sestamibi was injected stress images were obtained stress and rest images were reconstructed and compared in the short axis vertical long and horizontal long axis. Gated images were also obtained. Perfusion SPECT analysis: Review of the stress images demonstrate normal uptake of tracer noted in all areas of the myocardium. The resting images similar demonstrated normal uptake of tracer noted in all areas of the myocardium. No areas of reversibility are noted to suggest ischemia and no previous infarct is noted. Gated SPECT analysis: The gated ejection fraction is 63%. Conclusion: Normal pharmacologic myocardial perfusion stress test. Normal ejection fraction.
== END | disposition home or self-care (01) ==
PROVIDERS: PCP Family Medicine; Referring Provider Internal Medicine Cardiovascular Disease; Visit Provider Internal Medicine Cardiovascular Disease
DX: R06.02 Shortness of breath (principal)
CPT/HCPCS: 78452; 93017; A9500; A4216; J2785